=== PATIENT | female | born 1980 | race Caucasian/White ===

== ENCOUNTER 2017-05-16 15:34 | Emergency (ER) | payer MEDICAID, SELFPAY | END 2017-05-16 17:02 | disposition home or self-care (01) | PROVIDERS: Emergency Provider Nurse Practitioner; Family Provider Emergency Medicine; Visit Provider Nurse Practitioner | DX: J06.9 Acute upper respiratory infection, unspecified (principal); F17.210 Nicotine dependence, cigarettes, uncomplicated; I10 Essential (primary) hypertension; Z79.899 Other long term (current) drug therapy; F41.9 Anxiety disorder, unspecified | CPT/HCPCS: 87804; 99201 ==

== ENCOUNTER 2017-05-23 16:24 | Emergency (ER) | payer MEDICAID, SELFPAY ==
[2017-05-23 16:28] VITALS: BP 147/93; PULSE 60; RESP 18; TEMP 36.7; O2SAT 96; BMI 29.9
[2017-05-23 17:00] LABS: Basophils # 0.1 K/mm3 (0-0.2); Basophils % 0.9 % (0.1-2.0); Eosinophils # 0.2 K/mm3 (0.0-0.4); Eosinophils % 2.5 % (0.1-12.0); Hematocrit 38.6 % (37.0-47.0); Hemoglobin 12.6 g/dL (12.2-16.2); Lymphocytes # 1.9 K/mm3 (0.7-4.5); Lymphocytes % 31.2 K/mm3 (10-50); Mean Corpuscular HGB Conc 32.6 g/dL (31.8-35.4); Mean Corpuscular Hemoglobin 32.1 pg (27.0-31.2); Mean Corpuscular Volume 98.4 fl (81-99); Mean Platelet Volume 8.4 fl (7.4-10.4); Monocytes # 0.4 K/mm3 (0.1-1.0); Monocytes % 6.9 % (1.7-9.3); Neutrophils # 3.5 K/mm3 (1.8-7.8); Neutrophils % 58.4 % (37.0-80.0); Platelet Count 276 K/mm3 (142-424); Red Blood Count 3.93 M/mm3 (4.20-5.40); Red Cell Distribution Width 12.8 % (11.5-17.5)
[2017-05-23 17:25] LABS: Alanine Aminotransferase 20 U/L (12-78); Albumin Level 3.8 gm/dL (3.4-5.0); Albumin/Globulin Ratio 1.2 (1.1-1.8); Alkaline Phosphatase 59 U/L (46-116); Anion Gap 9.6 mEq/L (5-15); Aspartate Amino Transferase 14 U/L (15-37); Bilirubin,Total 0.3 mg/dL (0.2-1.0); Blood Urea Nitrogen 11 mg/dL (7-18); CKMB Relative Index 0.8 U/L (0-4.0); Calcium 8.5 mg/dL (8.5-10.1); Carbon Dioxide 27 mmol/L (21.0-32.0); Chloride 107 mmol/L (98-107); Creatine Kinase 61 U/L (26-192); Creatine Kinase MB 0.5 mg/ml (0.0-3.6); Creatinine Clearance Estimated 150 mL/min (0-300); Creatinine,Serum 0.68 mg/dL (0.55-1.02); Estimated Glomerular Filt Rate > 60 ml/min (>60); GFR (African American) > 60 ML/MIN (>60); Globulin 3.2 gm/dl (1.3-3.2); Glucose 84 mg/dL (74-106); Potassium 3.6 mmoL/L (3.5-5.1); Sodium 140 mmol/L (136-145); Thyroid Stimulating Hormone 0.97 uIU/ml (0.358-3.740); Troponin I < 0.02 ng/ml (0.00-0.06)
--- NOTE | 2017-05-23 17:50 | XR_ITS ---
XR chest 2V HISTORY: Chest pain, current smoker ITS.REASON: HEART PALPITATIONS ORDERING PHYSICIAN: Bernadette Young MD PATIENT AGE: 37 years COMPARISON: None available FINDINGS: The cardiomediastinal silhouette and pulmonary vascularity are within normal limits. The lungs are clear without infiltrates, suspicious nodules, or pleural effusions. No acute bony abnormalities. IMPRESSION: Negative chest, no acute finding
--- NOTE | 2017-05-23 20:20 | HMH.EDGENADL ---
ED Disposition Clinical Impression: Palpitations Disposition: Home, Self-Care Condition on Discharge: Good Referrals: José Youngblood MD [Primary Care Provider] - Time of Disposition: 20:30 - Critical Care Critical Care Time: No Attestation: On 05/23/17, the high probability of a clinically significant, sudden or life threatening deterioration of the following system(s) required my full and direct attention, intervention and personal management. The time I documented below is in addition to time spent performing reported procedures but includes the following listed in this critical care notation. Medical Decision Making Vital Signs: 05/23/17 16:28 Temperature 98.0 F Temperature Source Oral Pulse Rate [Right Brachial] 60 Respiratory Rate 18 Blood Pressure [Right Arm] 147/93 Blood Pressure Mean [Right Arm] 111 Blood Pressure Source [Right Arm] Automatic Cuff Blood Pressure Position [Right Arm] Supine 02 Sat by Pulse Oximetry 96 Oxygen Delivery Method Room Air - Lab Data Lab Results 05/23/17 16:50: Sodium 140, Potassium 3.6, Chloride 107, Carbon Dioxide 27, Anion Gap 9.6, BUN 11, Creatinine 0.68, Estimated Creat Clear 150, Estimated GFR > 60, Est GFR ( Amer) > 60, Glucose 84, Calcium 8.5, Total Bilirubin 0.3, AST 14 L, ALT 20, Alkaline Phosphatase 59, Total Creatine Kinase 61, CK-MB (CK-2) 0.5, CK-MB (CK-2) Rel Index 0.8, Troponin I < 0.02, Total Protein 7.0, Albumin 3.8, Globulin 3.2, Albumin/Globulin Ratio 1.2, TSH 0.97 05/23/17 16:50: WBC 6.0, RBC 3.93 L, Hgb 12.6, Hct 38.6, MCV 98.4, MCH 32.1 H, MCHC 32.6, RDW 12.8, Plt Count 276, MPV 8.4, Neut % (Auto) 58.4, Lymph % (Auto) 31.2, [place] % (Auto) 6.9, Eos % (Auto) 2.5, Baso % (Auto) 0.9, Neut # (Auto) 3.5, Lymph # (Auto) 1.9, [place] # (Auto) 0.4, Eos # (Auto) 0.2, Baso # (Auto) 0.1 Result diagrams: 05/23/17 16:50 05/23/17 16:50 Orders (Tests/Meds): ED MEDICATIONS Generic Name Dose Route Start Last Admin Trade Name Fouzia PRN Reason Stop Dose Admin Sodium Chloride 10 ml 05/23/17 16:45 Saline Flush 10ml Syringe IV 06/22/17 16:44 NEEDED PRN Maintain IV Site ORDERS Category Date Time Status Chest XR 2 view (NOT portable) [XR chest 2V] Stat Exams 05/23/17 17:50 Taken - Radiology Data #1 Image(s): Chest Image Reviewed: Yes I reviewed the patient's radiology results Preliminary Findings: Normal/NAD, No Infiltrates Seen, Normal Lung Inflation [place], Normal Heart Size - ECG Data Tracing #1 His bradycardia rate of 58 very nonspecific T-wave flattening QT interval ECG normal with no acute: arrhythmias, ischemia, conduction abnormalities, chamber hypertrophy Ischemic changes: other (somewhat flattened t waves: Normal QT corrected.) - Librado Inquiry Pt receiving controlled substance: No General Adult HPI - General Chief complaint: Arrhythmia/Palpitations Stated complaint: palpitations Mode of Arrival: Ambulatory Limitations: No Limitations Description of Symptoms (Recalled from ER Triage Doc. by RN): PT STATES SHE FELT LIKE SHE WAS HAVING PALPITATIONS EARLIER THIS DATE; SIMILAR TO. HAVING BEFORE - History of Present Illness HPI narrative: Pt reports palpitations at rest, intermittent, lasting briefly, nausea or vomiting, no diaphoresis, no radiation. Caffeine. No syncope. She has had her thyroid checked in the past and denies any skin or weight changes. Is comfortable on initial evaluation. Onset (ago): hour(s) Radiation: proximal Severity: mild Quality: sharp Consistency: intermittent Relieving factors: none Exacerbating factors: none Associated symptoms: denies other symptoms Treatments prior to arrival: none - Related Data Allergies Allergy/AdvReac Type Severity Reaction Status Date / Time Penicillins [PENICILLINS] Allergy Unknown Unverified 05/06/17 14:40 tetracycline [TETRACYCLINE] Allergy Unknown Unverified 05/06/17 14:40 [facility] History I have reviewed the patient's
--- NOTE | 2017-05-23 20:23 | ED_ITS ---
ED Disposition Clinical Impression: Palpitations Disposition: Home, Self-Care Condition on Discharge: Good Referrals: José Youngblood MD [Primary Care Provider] - Time of Disposition: 20:30 - Critical Care Critical Care Time: No Attestation: On 05/23/17, the high probability of a clinically significant, sudden or life threatening deterioration of the following system(s) required my full and direct attention, intervention and personal management. The time I documented below is in addition to time spent performing reported procedures but includes the following listed in this critical care notation. Medical Decision Making Vital Signs: 05/23/17 16:28 Temperature 98.0 F Temperature Source Oral Pulse Rate [Right Brachial] 60 Respiratory Rate 18 Blood Pressure [Right Arm] 147/93 Blood Pressure Mean [Right Arm] 111 Blood Pressure Source [Right Arm] Automatic Cuff Blood Pressure Position [Right Arm] Supine 02 Sat by Pulse Oximetry 96 Oxygen Delivery Method Room Air - Lab Data Lab Results 05/23/17 16:50: Sodium 140, Potassium 3.6, Chloride 107, Carbon Dioxide 27, Anion Gap 9.6, BUN 11, Creatinine 0.68, Estimated Creat Clear 150, Estimated GFR > 60, Est GFR ( Amer) > 60, Glucose 84, Calcium 8.5, Total Bilirubin 0.3, AST 14 L, ALT 20, Alkaline Phosphatase 59, Total Creatine Kinase 61, CK-MB (CK-2) 0.5, CK-MB (CK-2) Rel Index 0.8, Troponin I < 0.02, Total Protein 7.0, Albumin 3.8, Globulin 3.2, Albumin/Globulin Ratio 1.2, TSH 0.97 05/23/17 16:50: WBC 6.0, RBC 3.93 L, Hgb 12.6, Hct 38.6, MCV 98.4, MCH 32.1 H, MCHC 32.6, RDW 12.8, Plt Count 276, MPV 8.4, Neut % (Auto) 58.4, Lymph % (Auto) 31.2, [place] % (Auto) 6.9, Eos % (Auto) 2.5, Baso % (Auto) 0.9, Neut # (Auto) 3.5 , Lymph # (Auto) 1.9, [place] # (Auto) 0.4, Eos # (Auto) 0.2, Baso # (Auto) 0.1 Result diagrams: 05/23/17 16:50 05/23/17 16:50 Orders (Tests/Meds): ED MEDICATIONS Generic Name Dose Route Start Last Admin Trade Name Fouzia PRN Reason Stop Dose Admin Sodium Chloride 10 ml 05/23/17 16:45 Saline Flush 10ml Syringe IV 06/22/17 16:44 NEEDED PRN Maintain IV Site ORDERS Category Date Time Status Chest XR 2 view (NOT portable) [XR chest 2V] Stat Exams 05/23/17 17:50 Taken - Radiology Data #1 Image(s): Chest Image Reviewed: Yes I reviewed the patient's radiology results Preliminary Findings: Normal/NAD, No Infiltrates Seen, Normal Lung Inflation Hilton , Normal Heart Size - ECG Data Tracing #1 His bradycardia rate of 58 very nonspecific T-wave flattening QT interval ECG normal with no acute: arrhythmias, ischemia, conduction abnormalities, chamber hypertrophy Ischemic changes: other (somewhat flattened t waves: Normal QT corrected.) - Librado Inquiry Pt receiving controlled substance: No General Adult HPI - General Chief complaint: Arrhythmia/Palpitations Stated complaint: palpitations Mode of Arrival: Ambulatory Limitations: No Limitations Description of Symptoms (Recalled from ER Triage Doc. by RN): PT STATES SHE FELT LIKE SHE WAS HAVING PALPITATIONS EARLIER THIS DATE; SIMILAR TO. HAVING BEFORE - History of Present Illness HPI narrative: Pt reports palpitations at rest, intermittent, lasting briefly, nausea or vomiting, no diaphoresis, no radiation. Caffeine. No syncope. She has had her thyroid checked i
[2017-05-23 21:37] VITALS: BP 147/91; PULSE 56; RESP 18; TEMP 37; O2SAT 98
== END 2017-05-23 21:43 | disposition home or self-care (01) ==
PROVIDERS: Emergency Provider Emergency Medicine; Family Provider Emergency Medicine; PCP Emergency Medicine
DX: R00.2 Palpitations (principal); F17.210 Nicotine dependence, cigarettes, uncomplicated
CPT/HCPCS: 71046; 80053; 82550; 82553; 84443; 84484; 85025; 93005; 99284

== ENCOUNTER 2017-07-04 12:19 | Emergency (ER) | payer MEDICAID, SELFPAY ==
[2017-07-04 13:40] VITALS: BP 145/92; PULSE 66; RESP 20; TEMP 36.4; O2SAT 98; BMI 66.0
[2017-07-04 14:08] LABS: Basophils # 0.1 K/mm3 (0-0.2); Basophils % 0.9 % (0.1-2.0); Eosinophils # 0.2 K/mm3 (0.0-0.4); Eosinophils % 2.9 % (0.1-12.0); Hematocrit 41.2 % (37.0-47.0); Hemoglobin 13.7 g/dL (12.2-16.2); Lymphocytes # 2.5 K/mm3 (0.7-4.5); Lymphocytes % 33.7 K/mm3 (10-50); Mean Corpuscular HGB Conc 33.3 g/dL (31.8-35.4); Mean Corpuscular Hemoglobin 32.7 pg (27.0-31.2); Mean Corpuscular Volume 98.2 fl (81-99); Mean Platelet Volume 8.3 fl (7.4-10.4); Monocytes # 0.5 K/mm3 (0.1-1.0); Monocytes % 6.3 % (1.7-9.3); Neutrophils # 4.1 K/mm3 (1.8-7.8); Neutrophils % 56.2 % (37.0-80.0); Platelet Count 226 K/mm3 (142-424); Red Cell Distribution Width 12.5 % (11.5-17.5); White Blood Count 7.3 K/mm3 (4.8-10.8)
[2017-07-04 14:24] LABS: Alanine Aminotransferase 20 U/L (12-78); Albumin Level 3.8 gm/dL (3.4-5.0); Albumin/Globulin Ratio 1.1 (1.1-1.8); Alkaline Phosphatase 62 U/L (46-116); Amylase 30 U/L (25-125); Aspartate Amino Transferase 10 U/L (15-37); Bilirubin,Total 0.2 mg/dL (0.2-1.0); Blood Urea Nitrogen 8 mg/dL (7-18); Calcium 8.7 mg/dL (8.5-10.1); Carbon Dioxide 29 mmol/L (21.0-32.0); Chloride 106 mmol/L (98-107); Creatinine Clearance Estimated 112 mL/min (0-300); Creatinine,Serum 0.63 mg/dL (0.55-1.02); Estimated Glomerular Filt Rate 108 ml/min (>60); GFR (African American) 130 ML/MIN (>60); Globulin 3.6 gm/dl (1.3-3.2); Glucose 89 mg/dL (74-106); Sodium 141 mmol/L (136-145); Total Protein,Serum 7.4 gm/dL (6.4-8.2)
[2017-07-04 14:26] LABS: Lipase 192 u/L (73-393)
--- NOTE | 2017-07-04 17:30 | HMH.EDABDPAI ---
ED Disposition Clinical Impression: Crohns disease Qualifiers: Gastrointestinal tract location: small intestine Digestive disease complication type: unspecified complication Qualified Code(s): K50.019 - Crohn's disease of small intestine with unspecified complications Disposition: Home, Self-Care Condition on Discharge: Fair Instructions: Acute Abdominal Pain Prescriptions: Hydrocodone/Acetaminophen [Hydrocodone-Acetamin 5-325 mg] 1 each PO Q6H 3 Days #15 tab Ondansetron HCl [Zofran 4mg Tab] 4 mg PO Q6H 10 Days #40 tab Referrals: José Youngblood MD [Primary Care Provider] - Time of Disposition: 17:35 - Critical Care Critical Care Time: No Attestation: On 07/04/17, the high probability of a clinically significant, sudden or life threatening deterioration of the following system(s) required my full and direct attention, intervention and personal management. The time I documented below is in addition to time spent performing reported procedures but includes the following listed in this critical care notation. Medical Decision Making - Medical Records Medical records reviewed: Yes: I reviewed the patient's medical records. Vital Signs: 07/04/17 13:40 Temperature 97.6 F Temperature Source Tympanic Pulse Rate [Right Radial] 66 Respiratory Rate 20 Blood Pressure [Right Arm] 145/92 Blood Pressure Mean [Right Arm] 109 Blood Pressure Position [Right Arm] Sitting 02 Sat by Pulse Oximetry 98 Oxygen Delivery Method Room Air - Lab Data Lab results reviewed: Yes: I reviewed the patient's lab results. Lab Results 07/04/17 13:50: WBC 7.3, RBC 4.20, Hgb 13.7, Hct 41.2, MCV 98.2, MCH 32.7 H, MCHC 33.3, RDW 12.5, Plt Count 226, MPV 8.3, Neut % (Auto) 56.2, Lymph % (Auto) 33.7, [place] % (Auto) 6.3, Eos % (Auto) 2.9, Baso % (Auto) 0.9, Neut # (Auto) 4.1, Lymph # (Auto) 2.5, [place] # (Auto) 0.5, Eos # (Auto) 0.2, Baso # (Auto) 0.1 07/04/17 13:50: Sodium 141, Potassium 4.0, Chloride 106, Carbon Dioxide 29, Anion Gap 10.0, BUN 8, Creatinine 0.63, Estimated Creat Clear 112, Estimated GFR 108, Est GFR ( Amer) 130, Glucose 89, Calcium 8.7, Total Bilirubin 0.2, AST 10 L, ALT 20, Alkaline Phosphatase 62, Total Protein 7.4, Albumin 3.8, Globulin 3.6 H, Albumin/Globulin Ratio 1.1, Amylase 30 07/04/17 13:50: Lipase 192 Result diagrams: 07/04/17 13:50 07/04/17 13:50 Orders (Tests/Meds): ORDERS Category Date Time Status Urinalysis and Microscopic Stat Lab 07/04/17 13:48 Ordered - Librado Inquiry Pt receiving controlled substance: Yes Librado was queried for this patient: Yes Reference #:: [id number] Risks and benefits of using a controlled substance: were discussed with pt by me Abdominal Pain HPI - General Chief Complaint: Abdominal Pain Stated Complaint: abdominal pain Time Seen by Provider: 07/04/17 17:16 Mode of Arrival: Ambulatory Limitations: No Limitations Description of Symptoms (Recalled from ER Triage Doc. by RN): ABD PAIN, NAUSEA/DIARRHEA - History of Present Illness HPI narrative: History of Crohn's Disease and out of Humira for about a month. Now with a pain in right side with vomiting and diarrhea butno fever and feels this is a Flare of her Crohn's and she has been taking Cipro and Flagyl with no relief. I have told her I can not rule out appendicitis wihtout a CT scan but she has had many and does not want another at this time MD complaint: abdominal pain Onset (ago): day(s) Consistency: intermittent Severity: moderate Severity scale (1-10): 5 - Related Data Previous Rx's Medication Instructions Recorded Hydrocodone/Acetaminophen 1 each PO Q6H 3 Days #15 tab 07/04/17 [Hydrocodone-Acetamin 5-325 mg] Ondansetron HCl [Zofran 4mg Tab] 4 mg PO Q6H 10 Days #40 tab 07/04/17 Allergies Allergy/AdvReac Type Severity Reaction Status Date / Time Penicillins [PENICILLINS] Allergy Unknown Verified 07/04/17 13:46 tetracycline [TETRACYCLINE] Allergy Unknown Verified 07/04/17 13:4
--- NOTE | 2017-07-04 17:33 | ED_ITS ---
ED Disposition Clinical Impression: Crohns disease Qualifiers: Gastrointestinal tract location: small intestine Digestive disease complication type: unspecified complication Qualified Code(s): K50.019 - Crohn' s disease of small intestine with unspecified complications Disposition: Home, Self-Care Condition on Discharge: Fair Instructions: Acute Abdominal Pain Prescriptions: Hydrocodone/Acetaminophen [Hydrocodone-Acetamin 5-325 mg] 1 each PO Q6H 3 Days # 15 tab Ondansetron HCl [Zofran 4mg Tab] 4 mg PO Q6H 10 Days #40 tab Referrals: José Youngblood MD [Primary Care Provider] - Time of Disposition: 17:35 - Critical Care Critical Care Time: No Attestation: On 07/04/17, the high probability of a clinically significant, sudden or life threatening deterioration of the following system(s) required my full and direct attention, intervention and personal management. The time I documented below is in addition to time spent performing reported procedures but includes the following listed in this critical care notation. Medical Decision Making - Medical Records Medical records reviewed: Yes: I reviewed the patient's medical records. Vital Signs: 07/04/17 13:40 Temperature 97.6 F Temperature Source Tympanic Pulse Rate [Right Radial] 66 Respiratory Rate 20 Blood Pressure [Right Arm] 145/92 Blood Pressure Mean [Right Arm] 109 Blood Pressure Position [Right Arm] Sitting 02 Sat by Pulse Oximetry 98 Oxygen Delivery Method Room Air - Lab Data Lab results reviewed: Yes: I reviewed the patient's lab results. Lab Results 07/04/17 13:50: WBC 7.3, RBC 4.20, Hgb 13.7, Hct 41.2, MCV 98.2, MCH 32.7 H, MCHC 33.3, RDW 12.5, Plt Count 226, MPV 8.3, Neut % (Auto) 56.2, Lymph % (Auto) 33.7, [place] % (Auto) 6.3, Eos % (Auto) 2.9, Baso % (Auto) 0.9, Neut # (Auto) 4.1 , Lymph # (Auto) 2.5, [place] # (Auto) 0.5, Eos # (Auto) 0.2, Baso # (Auto) 0.1 07/04/17 13:50: Sodium 141, Potassium 4.0, Chloride 106, Carbon Dioxide 29, Anion Gap 10.0, BUN 8, Creatinine 0.63, Estimated Creat Clear 112, Estimated GFR 108, Est GFR ( Amer) 130, Glucose 89, Calcium 8.7, Total Bilirubin 0.2, AST 10 L, ALT 20, Alkaline Phosphatase 62, Total Protein 7.4, Albumin 3.8, Globulin 3.6 H, Albumin/Globulin Ratio 1.1, Amylase 30 07/04/17 13:50: Lipase 192 Result diagrams: 07/04/17 13:50 07/04/17 13:50 Orders (Tests/Meds): ORDERS Category Date Time Status Urinalysis and Microscopic Stat Lab 07/04/17 13:48 Ordered - Librado Inquiry Pt receiving controlled substance: Yes Librado was queried for this patient: Yes Reference #:: [id number] Risks and benefits of using a controlled substance: were discussed with pt by me Abdominal Pain HPI - General Chief Complaint: Abdominal Pain Stated Complaint: abdominal pain Time Seen by Provider: 07/04/17 17:16 Mode of Arrival: Ambulatory Limitations: No Limitations Description of Symptoms (Recalled from ER Triage Doc. by RN): ABD PAIN, NAUSEA/ DIARRHEA - History of Present Illness HPI narrative: History of Crohn's Disease and out of Humira for about a month. Now with a pain in right side with vomiting and diarrhea butno fever and feels this is a Flare of her Crohn's and she has been taking Cipro and Flagyl with no relief. I have told her I can not rule out appendicitis wihtout a CT scan but she has had many and does not want another at this time MD complaint: abdominal pain Onset (a
[2017-07-04 17:55] VITALS: BP 134/70; PULSE 78; RESP 20; TEMP 36.6; O2SAT 100
== END 2017-07-04 17:57 | disposition home or self-care (01) ==
PROVIDERS: Emergency Provider General Practice; Family Provider Emergency Medicine; PCP Emergency Medicine
DX: K50.019 Crohn's disease of small intestine with unspecified complications (principal)
CPT/HCPCS: 80053; 82150; 83690; 85025; 96374; 96375; 99282; J2405

== ENCOUNTER → 2017-08-12 10:42 | Outpatient (CLI) | payer MEDICAID, SELFPAY ==
[2017-08-12 11:55] LABS: Anion Gap 13.7 mEq/L (5-15); Blood Urea Nitrogen 8 mg/dL (7-18); Carbon Dioxide 25 mmol/L (21.0-32.0); Chloride 104 mmol/L (98-107); Creatinine,Serum 0.67 mg/dL (0.55-1.02); Estimated Glomerular Filt Rate 100 ml/min (>60); GFR (African American) 121 ML/MIN (>60); Glucose 99 mg/dL (74-106); Potassium 3.7 mmoL/L (3.5-5.1); Sodium 139 mmol/L (136-145)
== END ==
PROVIDERS: Visit Provider Dermatology
DX: L70.8 Other acne (principal)
CPT/HCPCS: 36415; 80048

== ENCOUNTER 2017-08-12 11:25 | Emergency (ER) | payer MEDICAID, SELFPAY ==
[2017-08-12 11:35] VITALS: BP 141/90; PULSE 64; RESP 16; TEMP 36.8; O2SAT 95; BMI 29.6
--- NOTE | 2017-08-12 12:06 | HMH.EDUTC ---
[facility] [place] Disposition Clinical Impression: UTI (urinary tract infection) Qualifiers: Urinary tract infection type: site unspecified Hematuria presence: with hematuria Qualified Code(s): N39.0 - Urinary tract infection, site not specified Disposition: Home, Self-Care Condition on Discharge: Good Instructions: DI for Urinary Tract Infection (UTI), DI for Hematuria Additional Instructions: * increase fluids, Water and NOT soda or tea * Start antibiotic immediately and be sure to take as ordered for the FULL length of time although you should start to see improvement over the next 48 hours. * Be SURE to follow up anytime for new or worsening symptoms, AND in 48 hours for urine culture results AND in 10-14 days to repeat UA and ensure infection resolved and blood no longer present. * Be sure to let your PCP (or whoever you follow up with) know we sent urine culture so they can request records and ensure you are on the appropriate antibiotic if you are not getting better or getting worse!!! Prescriptions: Sulfamethoxazole/Trimethoprim [Bactrim DS tablet] 1 each PO BID #20 tab Referrals: Owen Mars MD [Staff Physician] - (Be SURE to follow up anytime for new or worsening symptoms, AND in 48 hours for urine culture results AND in 10-14 days to repeat UA and ensure infection resolved and blood no longer present) Time of Disposition: 13:06 Medical Decision Making - Librado Inquiry Pt receiving controlled substance: No Vital Signs: 08/12/17 11:35 Temperature 98.3 F Temperature Source Oral Pulse Rate [Left Radial] 64 Respiratory Rate 16 Blood Pressure [Right Arm] 141/90 Blood Pressure Mean [Right Arm] 107 Blood Pressure Source [Right Arm] Automatic Cuff Blood Pressure Position [Right Arm] Sitting 02 Sat by Pulse Oximetry 95 Oxygen Delivery Method Room Air - Lab Data Lab results reviewed: Yes: I reviewed the patient's lab results. Lab Results 08/12/17 11:47: Influenza Type A Ag Negative, Influenza Type B Ag Negative, Strep Scn Rapid Clinic Negative 08/12/17 12:12: Urine Color Yellow, Urine Appearance Clear, Urine pH 5.5, Ur Specific [place] >= 1.030, Urine Protein 1+, Urine Glucose (UA) Negative, Urine Ketones Trace, Urine Blood 1+, Urine Nitrate Negative, Urine Bilirubin 1+ A, Urine Urobilinogen 1, Ur Leukocyte Esterase 3+ A Orders (Tests/Meds): ORDERS Category Date Time Status Strep Screen Confirmation Stat Micro 08/12/17 11:47 Received Urine Culture Stat Micro 08/12/17 13:00 Received - Reevaluation(s) Time: 12:40 Reevaluation #1: Discussed U/A. Not enough urine for culture. Rvwd POC. pt currently drinking water so that urine culture can be obtained prior to discharge. [facility] [place] HPI - General Stated complaint: flu like symptoms Time Seen by Provider: 08/12/17 11:45 Mode of Arrival: Ambulatory Source of Information: Patient Limitations: No Limitations Description of Symptoms (Recalled from Triage Doc. by RN): FEVER, VOMITING, ACHY, AND HEADACHE SINCE FRIDAY. HEENT Symptoms (Recalled from RN notes): No Resp Symptoms (Recalled from RN notes): No Skin Symptoms (Recalled from RN notes): No MS Symptoms (Recalled from RN notes): Yes (BODY ACHES) Functional Status (Recalled from RN notes): NA - History of Present Illness Provider Complaint: c/o I think I have the flu . Started Friday. N/V, aches, chills. No diarrhea. Hx of Crohn's but this isn't my typical flare symptoms . Treated w/ Humira. No known sick contacts. Feeling feverish at times. Urinating less often, darker. Vomiting has slowed. Has zofran at home but hasn't taken anything today. No appetite - Related Data Home Medications Medication Instructions Recorded Confirmed Adalimumab [Humira] 40 mg SQ WEEKLY 08/12/17 08/12/17 Atenolol [Atenolol 25mg Tab] 25 mg PO BID 08/12/17 08/12/17 Balsalazide Disodium [Colazal] 750 mg PO TID 08/12/17 08/12/17 Folic Acid 20 mg PO DAILY 08/12/17 08/12/17 Previous Rx's Medication Instructions Recorded
[2017-08-12 12:52] LABS: UTC Influenza A Antigen Negative (Negative); UTC Influenza B Antigen Negative (Negative); UTC Strep Screen (Rapid) Negative (Negative)
[2017-08-12 12:52] LABS: Apearance,Urine Clear (Clear); Color,Urine Yellow (Yellow); PH,Urine 5.5 (5.0-8.5)
[2017-08-12 12:53] LABS: Blood, Urine 1+ (Negative); Glucose,Urine (UA) Negative (Negative); Ketones,Urine TRACE (Negative); Protein,Urine 1+ (Negative); Specific Gravity, Urine >= 1.030 (1.005-1.030)
[2017-08-12 12:54] LABS: Bilirubin,Urine 1+ (Negative); Urobilinogen,Urine 1 EU/dl (0.2)
[2017-08-12 12:55] LABS: UTC Leukocyte Esterase,Urine 3+ (Negative); UTC Nitrate,Urine Negative (Negative)
[2017-08-12 13:09] VITALS: BP 141/90; PULSE 64; RESP 16; TEMP 36.8; O2SAT 95
== END 2017-08-12 13:10 | disposition home or self-care (01) ==
PROVIDERS: Emergency Provider Nurse Practitioner Family; Family Provider Emergency Medicine; PCP Emergency Medicine
DX: N39.0 Urinary tract infection, site not specified (principal); F17.210 Nicotine dependence, cigarettes, uncomplicated; Z88.0 Allergy status to penicillin
CPT/HCPCS: 81003; 87086; 87804; 87880; 99202

== ENCOUNTER → 2018-01-01 11:12 | Outpatient (CLI) | payer MEDICAID, SELFPAY ==
[2018-01-01 12:22] LABS: Anion Gap 10.6 mEq/L (5-15); Blood Urea Nitrogen 8 mg/dL (7-18); Calcium 8.9 mg/dL (8.5-10.1); Carbon Dioxide 31 mmol/L (21.0-32.0); Chloride 105 mmol/L (98-107); Estimated Glomerular Filt Rate 95 ml/min (>60); GFR (African American) 115 ML/MIN (>60); Glucose 106 mg/dL (74-106); Potassium 3.6 mmoL/L (3.5-5.1); Sodium 143 mmol/L (136-145)
== END ==
PROVIDERS: Visit Provider Dermatology
DX: L70.8 Other acne (principal); L73.2 Hidradenitis suppurativa
CPT/HCPCS: 36415; 80048

== ENCOUNTER → 2018-01-23 12:36 | Outpatient (CLI) | payer MEDICAID, SELFPAY ==
[2018-01-23 13:15] LABS: Basophils % 0.6 % (0.1-2.0); Eosinophils # 0.2 K/mm3 (0.0-0.4); Eosinophils % 3.3 % (0.1-12.0); Hematocrit 40.3 % (37.0-47.0); Hemoglobin 13.1 g/dL (12.2-16.2); Lymphocytes # 2.2 K/mm3 (0.7-4.5); Lymphocytes % 30.5 K/mm3 (10-50); Mean Corpuscular HGB Conc 32.4 g/dL (31.8-35.4); Mean Corpuscular Hemoglobin 31.9 pg (27.0-31.2); Mean Corpuscular Volume 98.4 fl (81-99); Mean Platelet Volume 7.8 fl (7.4-10.4); Monocytes # 0.4 K/mm3 (0.1-1.0); Monocytes % 5.5 % (1.7-9.3); Neutrophils # 4.3 K/mm3 (1.8-7.8); Neutrophils % 60.1 % (37.0-80.0); Platelet Count 284 K/mm3 (142-424); Red Cell Distribution Width 12.4 % (11.5-17.5); White Blood Count 7.1 K/mm3 (4.8-10.8)
[2018-01-23 19:06] LABS: Alanine Aminotransferase 15 U/L (12-78); Albumin Level 3.7 gm/dL (3.4-5.0); Albumin/Globulin Ratio 1.1 (1.1-1.8); Alkaline Phosphatase 65 U/L (46-116); Anion Gap 8.4 mEq/L (5-15); Aspartate Amino Transferase 12 U/L (15-37); Bilirubin,Total 0.2 mg/dL (0.2-1.0); Blood Urea Nitrogen 8 mg/dL (7-18); Calcium 8.7 mg/dL (8.5-10.1); Carbon Dioxide 29 mmol/L (21.0-32.0); Chloride 107 mmol/L (98-107); Creatinine,Serum 0.67 mg/dL (0.55-1.02); Estimated Glomerular Filt Rate 100 ml/min (>60); GFR (African American) 121 ML/MIN (>60); Globulin 3.4 gm/dl (1.3-3.2); Glucose 87 mg/dL (74-106); Potassium 4.4 mmoL/L (3.5-5.1); Sodium 140 mmol/L (136-145); Total Protein,Serum 7.1 gm/dL (6.4-8.2)
== END ==
PROVIDERS: PCP Internal Medicine Adolescent Medicine; Visit Provider Nurse Practitioner
DX: K50.90 Crohn's disease, unspecified, without complications (principal)
CPT/HCPCS: 36415; 80053; 85025

== ENCOUNTER → 2018-01-28 09:56 | Outpatient (CLI) | payer MEDICAID, SELFPAY | PROVIDERS: PCP Internal Medicine Adolescent Medicine; Visit Provider Nurse Practitioner | DX: K50.90 Crohn's disease, unspecified, without complications (principal) | CPT/HCPCS: 36415; 86480 ==

== ENCOUNTER → 2018-11-23 13:26 | Outpatient (CLI) | payer MEDICAID, SELFPAY | PROVIDERS: PCP Internal Medicine Adolescent Medicine; Visit Provider Nurse Practitioner Family | DX: R00.2 Palpitations (principal) | CPT/HCPCS: 93225; 93226 ==

== ENCOUNTER → 2018-11-25 13:32 | Outpatient (CLI) | payer MEDICAID, SELFPAY ==
--- NOTE | 2018-11-25 13:38 | CA_ITS ---
PROCEDURE: 2-D M-mode and color Doppler study INDICATIONS FOR THE TEST: Chest pain COPD Heart Murmur Tobacco Smoking+ Palpitations Fatigue Syncope Edema Hypertension+Diabetes Mellitus Rheumatic Fever SOB RUTH Obesity Hyperlipidemia Family History HD Additional History CROHNS DISEASE, ASTHMA PATIENT INFORMATION HEIGHT: 67 WEIGHT:170 GENDER: Female B/P:121/77 2-D/M-MODE INTERPRETATION: 2-D MEASUREMENTS OBSERVED VALUES IN CMS Right Ventricular Dimension (RVDd) 2.1 Interventricular Septum (Thickness)(IVsd) 1.0 Left Ventricular Internal Dimensions(LVIDd) 4.5 Left Ventricular Posterior Wall (Thickness)(LVPWd) 0.6 Aortic Root 2.8 Aortic Cusp Separation 2.1 Left Atrial Dimensions (LAD) 3.4 2D 1. Left atrium is normal size, left ventricle is normal size, there is no concentric left ventricular hypertrophy, visually estimated ejection fraction 55% with no regional wall motion abnormality. 2. The right atrium and right ventricle are normal size and contractility. 3. The aortic valve is minimally thickened and fibrosed. 4. The mitral and tricuspid valvular grossly normal. 5. The pulmonic valve is poorly visualized. 6. No significant pericardial effusion noted. DOPPLER INTERROGATION: Doppler interrogation of the aortic, mitral and tricuspid valve reveals presence of mild mitral and tricuspid regurgitation, tricuspid regurgitation jet velocity is inadequate for calculation of the right ventricular systolic pressure, diastolic parameters are within normal range. CONCLUSION: 1. Normal left ventricular size, preserved left ventricular systolic function, visually estimated ejection fraction 55% with no regional wall motion abnormality, diastolic parameters are within normal range. 2. Mild mitral and tricuspid regurgitation 3. No significant pericardial effusion noted.
== END ==
PROVIDERS: PCP Internal Medicine Adolescent Medicine; Referring Provider Nurse Practitioner Family; Visit Provider Nurse Practitioner Family
DX: R06.00 Dyspnea, unspecified (principal); R00.2 Palpitations
CPT/HCPCS: 93306

== ENCOUNTER → 2019-07-07 14:34 | Outpatient (CLI) | payer OTHER, SELFPAY ==
--- NOTE | 2019-07-07 14:37 | US_ITS ---
PROCEDURE: US BREAST LT COMPLETE CLINICAL INDICATION: MASTALGIA COMPARISON: No exams were available for comparison FINDINGS: A cystic lesion 2.7 by 5.0 x 2.5 millimeter is noted at 7 o'clock. At 9 o'clock near the nipple a 3.6 by 3.7 x 1.4 millimeter cystic lesion is noted. Both have some internal echoes which could be related to technical factors due to their small size or this could represent complication by hemorrhage or infection. There are at least 2 fat containing axillary lymph nodes largest measuring up to 1.9 centimeter. IMPRESSION: BI-RADS category 3 probably benign finding six-month follow-up is recommended. Dictated by: Carlos Castro 07/07/2019 18:49 Electronically signed by Carlos Castro in [place] 07/07/2019 18:49
--- NOTE | 2019-07-07 14:37 | MM_ITS ---
PROCEDURE: MM DIG MAMM DX UNILAT LT CAD CLINICAL INDICATION: MASTALGIA COMPARISON: No exams were available for comparison TECHNIQUE: Standard CC and MLO images and 3D Tomosynthesis was obtained. Additional cone compression views were performed in the CC and MLO projections. FINDINGS: The breasts are of average density. There are multiple scattered calcifications many with lucent centers likely representing skin calcifications. A cluster of 4 probably benign microcalcifications is seen in the superior breast at 12 o'clock and another cluster of 4 probably benign microcalcifications is seen in the medial breast. A 3.6 millimeter circumscribed nodule is seen at the level of the nipple line and medially and another one 3.7 millimeter in the inferior medial aspect of the left breast is also noted. Sonography performed 07/07/2019 demonstrates at the 7 o'clock and 9 o'clock positions 2 separate complicated cystic lesions felt to be probably benign. There is no spiculated mass or suspicious clustered IMPRESSION: Microcalcifications to suggest malignancy. BI-RAD Category: 3 probably benign FOLLOW-UP: Six-month follow-up bilaterally recommended. (A letter has been sent to the patient regarding results of the study.) Dictated by: Carlos Castro 07/07/2019 18:49 Electronically signed by Carlos Castro in [facility] 07/07/2019 18:49
== END ==
PROVIDERS: PCP Internal Medicine Adolescent Medicine; Visit Provider Nurse Practitioner Family
DX: N64.4 Mastodynia (principal)
CPT/HCPCS: 76641; 77061; 77065; G0279

== ENCOUNTER 2020-01-06 10:53 | Emergency (ER) | payer OTHER, SELFPAY ==
[2020-01-06] VITALS (7 sets, daily range): BP systolic 128–153; BP diastolic 75–98; PULSE 54–77; RESP 15–18; TEMP 36.6–36.8; O2SAT 95–98; BMI 31.4
--- NOTE | 2020-01-06 11:05 | XR_ITS ---
PROCEDURE: XR CHEST 2V CLINICAL HISTORY: weakness Current smoker COMPARISON: CR CXR CHEST(2 VIEWS-NOT PORTABLE) from 07/30/2015 CR CXR CHEST(2 VIEWS-NOT PORTABLE) from 04/15/2017 CR CXR2V XR chest 2V from 05/23/2017 FINDINGS: The cardiomediastinal silhouette and pulmonary vascularity are within normal limits. The lungs are clear without infiltrates, suspicious nodules, or pleural effusions. Mild thoracic curvature convex right with straightening of the thoracic kyphosis. IMPRESSION: No acute findings. Dictated by: Casey Martin MD 01/07/2020 07:19 Casey Martin MD in [facility] 01/07/2020 07:19
--- NOTE | 2020-01-06 11:07 | ECG_ITS ---
APPROVED REPORT Exam: Resting ECG HR:63 bpm ECG Measurements Heart Rate 63 AXES [place] 168 P 43 QRSd 74 QRS 32 QT 438 T 38 QTc 448 <Conclusion> Normal sinus rhythm Normal ECG Electronically signed by : Owen Mars, 01/07/2020 07:12:33
[2020-01-06 11:13] LABS: Microscopic, Urine URINE MICROSCOPIC (MICROSCOPIC)
[2020-01-06 11:16] LABS: Appearance,Urine CLEAR (Clear); Bilirubin,Urine Negative (Negative); Blood, Urine 2+ (Negative); Color,Urine YELLOW (Yellow); Glucose,Urine (UA) Negative (Negative); Ketones,Urine Negative (Negative); Leukocyte Esterase,Urine 1+ (Negative); Nitrate,Urine Negative (Negative); PH,Urine 6.5 (5.0-8.5); Protein,Urine Negative (Negative); Urobilinogen,Urine 0.2 EU/dl (0.2)
[2020-01-06 11:17] LABS: Basophils # 0.1 K/mm3 (0-0.2); Eosinophils # 0.2 K/mm3 (0.0-0.4); Eosinophils % 2.6 % (0.1-12.0); Hematocrit 39.9 % (37.0-47.0); Hemoglobin 13.4 g/dL (12.2-16.2); Lymphocytes # 2.5 K/mm3 (0.7-4.5); Lymphocytes % 33.9 % (10-50); Mean Corpuscular HGB Conc 33.6 g/dL (31.8-35.4); Mean Corpuscular Hemoglobin 33.6 pg (27.0-31.2); Mean Corpuscular Volume 99.9 fl (81-99); Mean Platelet Volume 7.9 fl (7.4-10.4); Monocytes # 0.4 K/mm3 (0.1-1.0); Monocytes % 5.1 % (1.7-9.3); Neutrophils # 4.2 K/mm3 (1.8-7.8); Neutrophils % 57.5 % (37.0-80.0); Platelet Count 308 K/mm3 (142-424); Red Blood Count 3.99 M/mm3 (4.20-5.40); White Blood Count 7.3 K/mm3 (4.8-10.8)
[2020-01-06 11:20] LABS: Urine Pregnancy, HCG Qual. Negative (Negative)
[2020-01-06 11:21] LABS: Chloride 109 mmol/L (98-107); Potassium 3.8 mmoL/L (3.5-5.1); Sodium 141 mmol/L (136-145)
[2020-01-06 11:24] LABS: Alanine Aminotransferase 24 U/L (12-78); Albumin Level 3.8 g/dl (3.5-5.0); Albumin/Globulin Ratio 1.2 (1.1-1.8); Alkaline Phosphatase 56 U/L (38-126); Anion Gap 9.8 mEq/L (5-15); Aspartate Amino Transferase 27 U/L (14-36); Bilirubin,Total 0.3 mg/dl (0.2-1.3); Blood Urea Nitrogen 10 mg/dl (7-17); Carbon Dioxide 26 mmol/L (22.0-30.0); Creatinine Clearance Estimated 174 mL/min (50-200); Estimated Glomerular Filt Rate 112 ml/min (>60); GFR (African American) 136 ML/MIN (>60); Globulin 3.2 g/dL (1.3-3.2)
[2020-01-06 11:25] LABS: Bacteria,Urine 1+ /lpf
[2020-01-06 11:25] LABS: Calcium 8.9 mg/dl (8.4-10.2); Glucose 108 mg/dl (74-100)
[2020-01-06 11:36] LABS: Troponin I < 0.01 ng/ml (0.00-0.034)
--- NOTE | 2020-01-06 11:40 | HMH.EDSYNC ---
ED Disposition Clinical Impression: Near syncope, Dizziness Disposition: Home, Self-Care Condition on Discharge: Fair Instructions: Dizziness, Nonvertigo Referrals: Owen Mars MD [Primary Care Provider] - - Critical Care Critical Care Time: No Attestation: On 01/06/20, the high probability of a clinically significant, sudden or life threatening deterioration of the following system(s) required my full and direct attention, intervention and personal management. The time I documented below is in addition to time spent performing reported procedures but includes the following listed in this critical care notation. Medical Decision Making - Medical Records Medical records reviewed: Yes: I reviewed the patient's medical records. - [place]ibr[place] Inquiry Pt receiving controlled substance: No Vital Signs: 01/06/20 10:54 01/06/20 11:02 01/06/20 11:05 Temperature 98.3 F Temperature Source Oral Pulse Rate [Orthostatic Lying] 58 L Pulse Rate [Orthostatic Sitting Left] 67 Pulse Rate [Orthostatic Standing] 77 Pulse Rate [Right Radial] 68 64 Respiratory Rate 18 15 Blood Pressure [Orthostatic Lying Left Arm] 128/75 Blood Pressure [Orthostatic Sitting] 134/89 Blood Pressure [Orthostatic Standing] 133/88 Blood Pressure [Right Arm] 144/93 H 144/93 H Blood Pressure Mean [Right Arm] 110 110 Blood Pressure Source [Right Arm] Blood Pressure Position [Right Arm] Sitting 02 Sat by Pulse Oximetry 97 97 Oxygen Delivery Method Room Air Room Air 01/06/20 11:24 01/06/20 11:30 Temperature Temperature Source Pulse Rate [Orthostatic Lying] Pulse Rate [Orthostatic Sitting Left] Pulse Rate [Orthostatic Standing] Pulse Rate [Right Radial] 77 59 L Respiratory Rate 16 18 Blood Pressure [Orthostatic Lying Left Arm] Blood Pressure [Orthostatic Sitting] Blood Pressure [Orthostatic Standing] Blood Pressure [Right Arm] 133/88 142/86 H Blood Pressure Mean [Right Arm] 103 104 Blood Pressure Source [Right Arm] Automatic Cuff Blood Pressure Position [Right Arm] Supine Supine 02 Sat by Pulse Oximetry 95 96 Oxygen Delivery Method Room Air Room Air - Lab Data Lab Results 01/06/20 11:00: Urine Color Yellow, Urine Appearance Clear, Urine pH 6.5, Ur Specific [place] 1.020, Urine Protein Negative, Urine Glucose (UA) Negative, Urine Ketones Negative, Urine Blood 2+, Urine Nitrate Negative, Urine Bilirubin Negative, Urine Urobilinogen 0.2, Ur Leukocyte Esterase 1+ A, Urine RBC 3-5, Urine WBC 10-20, Ur Squamous Epith Cells 3-5, Urine Bacteria 1+ 01/06/20 11:00: Urine HCG, Qual Negative 01/06/20 11:14: WBC 7.3, RBC 3.99 L, Hgb 13.4, Hct 39.9, MCV 99.9 H, MCH 33.6 H, MCHC 33.6, RDW 13.0, Plt Count 308, MPV 7.9, Neut % (Auto) 57.5, Lymph % (Auto) 33.9, [place] % (Auto) 5.1, Eos % (Auto) 2.6, Baso % (Auto) 1.0, Neut # (Auto) 4.2, Lymph # (Auto) 2.5, [place] # (Auto) 0.4, Eos # (Auto) 0.2, Baso # (Auto) 0.1 01/06/20 11:14: Sodium 141, Potassium 3.8, Chloride 109 H, Carbon Dioxide 26, Anion Gap 9.8, BUN 10, Creatinine 0.60, Estimated Creat Clear 174, Estimated GFR 112, Est GFR ( Amer) 136, Glucose 108 H, Calcium 8.9, Total Bilirubin 0.3, AST 27, ALT 24, Alkaline Phosphatase 56, Troponin I < 0.01, Total Protein 7.0, Albumin 3.8, Globulin 3.2, Albumin/Globulin Ratio 1.2 Result diagrams: 01/06/20 11:14 01/06/20 11:14 Orders (Tests/Meds): ED MEDICATIONS Generic Name Dose Route Start Last Admin Trade Name Freq PRN Reason Stop Dose Admin Sodium Chloride 1,000 mls @ 999 mls/hr 01/06/20 11:15 01/06/20 11:07 Sod Chlor 0.9% 1000ml Bag IV 01/06/20 12:15 999 mls/hr .[id number] NOA Administration Discontinued Medications Generic Name Dose Route Start Last Admin Trade Name Freq PRN Reason Stop Dose Admin Ketorolac Tromethamine 30 mg 01/06/20 12:01 Toradol 30mg/Ml Vial IM 01/06/20 12:02 ONCE ONE Meclizine HCl 25 mg 01/06/20 11:39 01/06/20 11:44 Antivert 25mg Tablet PO 01/06/20 11:40 25
== END 2020-01-06 12:18 | disposition home or self-care (01) ==
PROVIDERS: Emergency Provider Emergency Medicine; PCP Internal Medicine Adolescent Medicine
DX: R55 Syncope and collapse (principal); J45.909 Unspecified asthma, uncomplicated; I10 Essential (primary) hypertension; F17.210 Nicotine dependence, cigarettes, uncomplicated; Z90.49 Acquired absence of other specified parts of digestive tract; Z88.0 Allergy status to penicillin; Z79.899 Other long term (current) drug therapy; W18.39XA Other fall on same level, initial encounter; Y92.019 Unspecified place in single-family (private) house as the place of occurrence of the external cause
CPT/HCPCS: 71046; 80053; 81001; 81025; 84484; 85025; 87086; 87088; 93005; 96365; 96375; 99284

== ENCOUNTER 2020-08-24 14:56 | Inpatient (IN) | payer OTHER, SELFPAY ==
--- NOTE | 2020-08-24 15:07 | PC.NURSE ---
Pt arrived to the floor at this time.
[2020-08-24 15:50] VITALS: BP 133/67; PULSE 65; RESP 18; TEMP 36.7; O2SAT 95; BMI 31.3
--- NOTE | 2020-08-24 15:58 | HMH.PHACONS ---
- Pharmacy Consult Date: 08/24/20 Time: 15:58 Referring provider: DR. MCMULLEN Reason for Consult:: VANCOMYCIN DOSING Allergies and ADEs:: Allergies Allergy/AdvReac Type Severity Reaction Status Date / Time Penicillins [PENICILLINS] Allergy Unknown Verified 02/21/20 10:16 tetracycline [TETRACYCLINE] Allergy Unknown Verified 02/21/20 10:16 Home Medications:: Home Medications Medication Instructions Recorded Confirmed Type Folic Acid 1 mg PO DAILY 05/27/19 08/24/20 History Montelukast Sodium [Singulair 10mg 10 mg PO PM 05/27/19 08/24/20 History tablet] Omeprazole 20 mg PO DAILY 05/27/19 08/24/20 History linaclotide 290 mcg capsule 290 mcg PO cap 10/25/19 02/21/20 History atenolol 100 mg tablet 100 mg PO DAILY 11/18/19 08/24/20 History potassium chloride 10 mEq 10 meq PO DAILY 11/18/19 08/24/20 History capsule,extended release Adalimumab [Humira(Cf) Pen] 40 mg SQ WEEKLY 08/24/20 08/24/20 History Cetirizine HCl 10 mg PO DAILY 08/24/20 History Clindamycin Phosphate [Cleocin T] 1 applicatio TOPICAL BID 08/24/20 08/24/20 History Cyanocobalamin (Vitamin B-12) 1 ml IM WEEKLY 08/24/20 08/24/20 History [Cyanocobalamin 1,000mcg/mL Vial] Escitalopram Oxalate 20 mg PO DAILY 08/24/20 08/24/20 History Sulfamethoxazole/Trimethoprim 1 tab PO Q8H 08/24/20 08/24/20 History [Sulfamethoxazole-Tmp Ds Tablet] Height: 1.65 m Weight: 85.36 kg Medical History: Reports:: Asthma, Hypertension Denies:: Cancer, Diabetes Mellitus Type 1, Diabetes Mellitus Type 2, MRSA, Seizures Assessment and Plan - Assessment and plan all Dx Assessment and Plan for all problems:: Pharmacokinetic dosing service Objective: Patient: Floor: Age: 40 yo Serum creatinine: 0.60 mg/dL Height: 65 Inches Weight (kg): 85.3 Assessment: IBW (kg): 57.00 Dosing wt(kg): 85.3 Estimated Creatinine clearance (ml/min): 114.4 CRCL method: Cockcroft and Gault using ibw(default). Drug selected: Vancomycin Loading dose (mg): 0 Vd (liters): 64.0 (factor used: 0.75 L/kg) Piter (hr-1): 0.099 Half life (hrs): 7.00 Recommended dose: 1750 mg Interval: 12 hrs Infusion time (hrs): 2.0 Predicted peak (mcg/mL): 35.7 Predicted trough (mcg/mL): 13.27 Total body weight is being used for vancomycin dosing. Recommendations: Give Vancomycin 1750 mg q 12 hrs with an expected Cpeak of 35.7 mcg/ml and an expected Ctrough of 13.27 mcg/ml Thank you for the consult, will continue to follow. FÉLIX ERWIND
--- NOTE | 2020-08-24 15:59 | P.CONPHA_ITS ---
[facility] Pharmacy VTE Monitoring - Patient Demographics Admission date: 08/24/20 Report Date: 08/24/20 Time: 15:59 Allergies/Adverse Reactions: Patient Allergies Penicillins [PENICILLINS] Allergy (Unknown, Verified 02/21/20 10:16) tetracycline [TETRACYCLINE] Allergy (Unknown, Verified 02/21/20 10:16) Height: 1.65 m Weight: 85.36 kg - Prophylaxis VTE Prophylaxis Ordered?: Yes Types of VTE Prophylaxis: TEDS Knee High Location of Applied Device: Bilateral Lower Extremeties
[2020-08-24 16:09] LABS: Basophils # 0.1 K/mm3 (0-0.2); Basophils % 0.7 % (0.1-2.0); Eosinophils # 0.4 K/mm3 (0.0-0.4); Eosinophils % 3.3 % (0.1-12.0); Hematocrit 40.8 % (37.0-47.0); Hemoglobin 13.7 g/dL (12.2-16.2); Lymphocytes # 2.6 K/mm3 (0.7-4.5); Lymphocytes % 21.7 % (10-50); Mean Corpuscular HGB Conc 33.5 g/dL (31.8-35.4); Mean Corpuscular Hemoglobin 32.2 pg (27.0-31.2); Mean Corpuscular Volume 96.2 fl (81-99); Mean Platelet Volume 8.2 fl (7.4-10.4); Monocytes # 0.8 K/mm3 (0.1-1.0); Monocytes % 6.8 % (1.7-9.3); Neutrophils # 8.2 K/mm3 (1.8-7.8); Neutrophils % 67.5 % (37.0-80.0); Platelet Count 304 K/mm3 (142-424); Red Blood Count 4.25 M/mm3 (4.20-5.40); Red Cell Distribution Width 12.9 % (11.5-17.5); White Blood Count 12.2 K/mm3 (4.8-10.8)
[2020-08-24 16:17] LABS: Lactic Acid 0.9 mmol/L (0.7-2.1)
[2020-08-24 16:18] LABS: Alanine Aminotransferase 22 U/L (12-78); Albumin Level 4.5 g/dl (3.5-5.0); Albumin/Globulin Ratio 1.3 (1.1-1.8); Alkaline Phosphatase 95 U/L (38-126); Anion Gap 15.2 mEq/L (5-15); Aspartate Amino Transferase 42 U/L (14-36); Bilirubin,Total 0.4 mg/dl (0.2-1.3); Blood Urea Nitrogen 8 mg/dl (7-17); Calcium 9.3 mg/dl (8.4-10.2); Carbon Dioxide 23 mmol/L (22.0-30.0); Chloride 106 mmol/L (98-107); Creatinine Clearance Estimated 147 mL/min (50-200); Estimated Glomerular Filt Rate 94 ml/min (>60); GFR (African American) 113 ML/MIN (>60); Globulin 3.6 g/dL (1.3-3.2); Glucose 95 mg/dl (74-100); Potassium 4.2 mmoL/L (3.5-5.1); Sodium 140 mmol/L (136-145); Total Protein,Serum 8.1 g/dl (6.3-8.2)
--- NOTE | 2020-08-24 17:02 | HMH.GSCON ---
*Admission Date: 08/24/20 *Reason for consult:: Right breast abscess *History of present illness: Patient is a 40-year-old female. She states that day before yesterday she had developed some swelling and redness of the right medial breast. This persisted and progressed. She developed 2 areas with some minor drainage. She was seen in her primary care provider's office and admitted for inpatient management. Patient has had previous skin abscesses requiring incision and drainage and wound care. She is not diabetic. Denies any inciting event. She does have history of Crohn's disease. She had previously undergone imaging of the left breast 14 months ago for mastalgia symptoms and this was given a BI-RADS 3 classification and 6-month follow-up imaging was recommended. She has never had imaging on the right breast. Review of Systems - Review of Systems Review of systems:: pertinent systems reviewed and negative unless documented below [facility] History Medical History: Reports:: Asthma, Hypertension Denies:: Cancer, Diabetes Mellitus Type 1, Diabetes Mellitus Type 2, MRSA, Seizures *Have you ever received a pneumonia vaccine?: No *Have you received a flu vaccine this season?: No Other Medical History: Reports: Other. Denies: Blood Transfusion Reaction Laterality Cases: Bilateral: Tonsillectomy Other Surgeries: Yes: Appendectomy, Cholecystectomy, , Tubal Ligation, Other Amputation: No Fractures: No - *Social History Last grade of school completed: High school graduate Smoking Status: Current some day smoker Tobacco Type: cigarettes # Packs/Day (cigarettes): 1 #Yrs smoked (if former smoker): 5 Alcohol Intake: never Alcohol Intake Frequency:: other Substance Use Type: denies use *Occupational Status:: unemployed Housing: house Household Members: spouse *Travel in the last 8 weeks: None Family Hx:: Hypertension, Cancer, Diabetes, Coronary Artery Disease Meds Home Medications Medication Instructions Recorded Confirmed Type Folic Acid 1 mg PO DAILY 05/27/19 08/24/20 History Montelukast Sodium [Singulair 10mg 10 mg PO PM 05/27/19 08/24/20 History tablet] Omeprazole 20 mg PO DAILY 05/27/19 08/24/20 History linaclotide 290 mcg capsule 290 mcg PO cap 10/25/19 02/21/20 History atenolol 100 mg tablet 100 mg PO DAILY 11/18/19 08/24/20 History potassium chloride 10 mEq 10 meq PO DAILY 11/18/19 08/24/20 History capsule,extended release Adalimumab [Humira(Cf) Pen] 40 mg SQ WEEKLY 08/24/20 08/24/20 History Cetirizine HCl 10 mg PO DAILY 08/24/20 History Clindamycin Phosphate [Cleocin T] 1 applicatio TOPICAL BID 08/24/20 08/24/20 History Cyanocobalamin (Vitamin B-12) 1 ml IM WEEKLY 08/24/20 08/24/20 History [Cyanocobalamin 1,000mcg/mL Vial] Escitalopram Oxalate 20 mg PO DAILY 08/24/20 08/24/20 History Sulfamethoxazole/Trimethoprim 1 tab PO Q8H 08/24/20 08/24/20 History [Sulfamethoxazole-Tmp Ds Tablet] Allergies Allergy/AdvReac Type Severity Reaction Status Date / Time Penicillins [PENICILLINS] Allergy Unknown Verified 02/21/20 10:16 tetracycline [TETRACYCLINE] Allergy Unknown Verified 02/21/20 10:16 Exam Vital signs and Labs for Last 24 Hours: Temp Pulse Resp BP Pulse Ox 98.0 F 65 18 133/67 95 08/24/20 15:50 08/24/20 15:50 08/24/20 15:50 08/24/20 15:50 08/24/20 15:50 Laboratory Results - last 24 hr 08/24/20 15:55: WBC 12.2 H, RBC 4.25, Hgb 13.7, Hct 40.8, MCV 96.2, MCH 32.2 H, MCHC 33.5, RDW 12.9, Plt Count 304, MPV 8.2, Neut % (Auto) 67.5, Lymph % (Auto) 21.7, [place] % (Auto) 6.8, Eos % (Auto) 3.3, Baso % (Auto) 0.7, Neut # (Auto) 8.2 H, Lymph # (Auto) 2.6, [place] # (Auto) 0.8, Eos # (Auto) 0.4, Baso # (Auto) 0.1 08/24/20 15:55: Sodium 140, Potassium 4.2, Chloride 106, Carbon Dioxide 23, Anion Gap 15.2 H, BUN 8, Creatinine 0.70, Estimated Creat Clear 147, Estimated GFR 94, Est GFR ( Amer) 113, Glucose 95, Calcium 9.3, Total Bilirubin 0.4, AST 42 H, ALT 22, Alkaline Phosphatase 95, Total P
[2020-08-24 17:49] LABS: Adenovirus,PCR Not Detected (NotDetected); Bordetella Pertussis Not Detected (NotDetected); Chlamydophila Pneumoniae, PCR Not Detected (NotDetected); Coronavirus 19, PCR Not Detected (NotDetected); Coronavirus 229E Not Detected (NotDetected); Coronavirus NL63 Not Detected (NotDetected); Coronavirus OC43 Not Detected (NotDetected); Coronovirus HKU1,PCR Not Detected (NotDetected); Human Metapneumovirus Not Detected (NotDetected); Influenza A, PCR Not Detected (NotDetected); Influenza AH1, 2009 Not Detected (NotDetected); Influenza AH1, PCR Not Detected (NotDetected); Influenza AH3,PCR Not Detected (NotDetected); Influenza B, PCR Not Detected (NotDetected); Mycoplasma Pneumoniae, PCR Not Detected (NotDetected); Parainfluenza 1, PCR Not Detected (NotDetected); Parainfluenza 2, PCR Not Detected (NotDetected); Parainfluenza 3, PCR Not Detected (NotDetected); Parainfluenza 4, PCR Not Detected (NotDetected); Respiratory Syncytial Virus Not Detected (NotDetected); Rhinovirus/Enterovirus Not Detected (NotDetected)
--- NOTE | 2020-08-24 18:04 | ECG_ITS ---
APPROVED REPORT Exam: Resting ECG HR:58 bpm ECG Measurements Heart Rate 58 AXES TX 174 P 42 QRSd 78 QRS 29 QT 510 T 56 QTc 500 Conclusion Sinus bradycardia Nonspecific T wave abnormality Prolonged QT Abnormal ECG Electronically signed by : Owen Mars, 08/26/2020 08:41:56
--- NOTE | 2020-08-24 18:08 | PC.WOUNDNOTE ---
Wound Location: right breast Length:1 Width:1 Depth: Undermining Y/N: Tunneling cm: Granulation %: Slough/necrotic tissue %: Inflammation/swelling Y Pain and/or tenderness Y Exudate: Serosanguinous Sanguinous Serosanguinous Seropurulent Purulent yes Color: Clear Una Cloudy/milky [place] Red Green Yellow yes Brown [place]kins Blue Consistency: Thick Thin yes Amount: None Scant Small yes Moderate Large Odor no
[2020-08-24 20:00] VITALS: BP 142/77; PULSE 60; RESP 16; TEMP 37.1; O2SAT 100
[2020-08-25] VITALS (21 sets, daily range): BP systolic 91–143; BP diastolic 55–88; PULSE 59–96; RESP 16–18; TEMP 36.6–43; O2SAT 90–98; BMI 31.0
--- NOTE | 2020-08-25 03:11 | PC.NURSE ---
pt has rested comfortably through the night. no c/o pain. Pt states her breast is only painful to touch, drsg is in place. Lungs CTA, on room air. bowel sounds x4, abd soft and nontender. IV patent, NS @ 50. Pt NPO since midnight. pt able to ambulate independenty in room. VSS, call light in reach, no concerns at this time.
--- NOTE | 2020-08-25 07:40 | HMH.ACPN2 ---
Internal Medicine - PN: Subj *Date: 08/25/20 *Time: 07:40 Interval history: Patient felt good overnight except for some increased urinary frequency. No burning. No fevers. No excess drainage from bandages. Exam Vital signs and Labs for Last 24 Hours: Temp Pulse Resp BP Pulse Ox 98.5 F 62 16 139/77 97 08/25/20 04:00 08/25/20 04:00 08/25/20 04:00 08/25/20 04:00 08/25/20 04:00 Laboratory Results - last 24 hr 08/24/20 15:55: WBC 12.2 H, RBC 4.25, Hgb 13.7, Hct 40.8, MCV 96.2, MCH 32.2 H, MCHC 33.5, RDW 12.9, Plt Count 304, MPV 8.2, Neut % (Auto) 67.5, Lymph % (Auto) 21.7, [place] % (Auto) 6.8, Eos % (Auto) 3.3, Baso % (Auto) 0.7, Neut # (Auto) 8.2 H, Lymph # (Auto) 2.6, [place] # (Auto) 0.8, Eos # (Auto) 0.4, Baso # (Auto) 0.1 08/24/20 15:55: Sodium 140, Potassium 4.2, Chloride 106, Carbon Dioxide 23, Anion Gap 15.2 H, BUN 8, Creatinine 0.70, Estimated Creat Clear 147, Estimated GFR 94, Est GFR ( Amer) 113, Glucose 95, Calcium 9.3, Total Bilirubin 0.4, AST 42 H, ALT 22, Alkaline Phosphatase 95, Total Protein 8.1, Albumin 4.5, Globulin 3.6 H, Albumin/Globulin Ratio 1.3 08/24/20 15:55: Lactate 0.9 08/24/20 17:30: Chlamy pneumoniae PCR Not detected, Adenovirus (PCR) Not detected, B. pertussis DNA (PCR) Not detected, Coronavirus OC43 (PCR) Not detected, Coronavirus HKU1 (PCR) Not detected, Coronavirus 229E (PCR) Not detected, SARS-CoV-2 (PCR) Not detected, Coronavirus NL63 (PCR) Not detected, Human Metapneumovir PCR Not detected, Influenza A (H1) PCR Not detected, Influ A (H1N1/09) PCR Not detected, Influenza A (H3) PCR Not detected, Influenza Type A (PCR) Not detected, Influenza Type B (PCR) Not detected, M. pneumoniae (PCR) Not detected, Parainfluenza 1 (PCR) Not detected, Parainfluenza 2 (PCR) Not detected, Parainfluenza 3 (PCR) Not detected, Parainfluenza 4 (PCR) Not detected, RSV (PCR) Not detected, Entero/Rhino (PCR) Not detected I & O for Last 24 hours: Intake & Output 08/22/20 08/23/20 08/24/20 08/25/20 11:59 11:59 11:59 11:59 Weight 186 lb 6 oz Microbiology Reports for the Last 24 Hours: Microbiology 08/24/20 15:55 Breast,Right - Abscess Gram Stain - Final Narrative: Patient comfortable, respiratory and cardiopulmonary exam assessment unremarkable, no visible edema. Alert and oriented, ENT exam otherwise clear. Breast exam per surgery Assessment and Plan (1) Abscess of right breast unrelated to or Status: Acute Category: Medical Code(s): N61.1 - Abscess of the breast and nipple - Assessment and plan all Dx Assessment and Plan for all problems:: Appreciate surgery input, to the OR today.
--- NOTE | 2020-08-25 08:07 | HMH.PHAINT ---
MEDICATION RECONCILIATION COMPLETED USING EXTERNAL FILL HISTORY AND PHYSICIAN OFFICE LIST
--- NOTE | 2020-08-25 10:50 | P.PN_ITS ---
[facility] Anesthesia Checklist - Patient Identification Patient Identification: Arm Band - Structural Data Admitted From: Home Planned Operative Procedure/s: I & D breast abscess Consent for Planned Operative Procedure(s) Verified: Yes - NPO Status Verified Time NPO: 00:00 - Additional verifications Anesthesia Reactions: No Hx Blood Transfusions: No Blood Transfusion Reaction: No - Airway Assessment C-Spine Mobility Assessed: Yes TMJ Mobility Assessed: Yes Dentition: Good Dentition - Neurological Assessment Level of Consciousness: Awake, Alert Hx Seizures: No Numbness or tingling in extremities: No - Anesthesia Plan Anesthesia Risk discussed: Yes Anesthesia Plan: Verified ASA Class: II Anesthesia Type: General [facility] History I have reviewed the patient's past medical history: Yes Medical History: Reports:: Asthma, Hypertension Denies:: Cancer, Diabetes Mellitus Type 1, Diabetes Mellitus Type 2, MRSA, Seizures *Have you ever received a pneumonia vaccine?: No *Have you received a flu vaccine this season?: No Other Medical History: Reports: Other. Denies: Blood Transfusion Reaction Anesthesia experience/problems:: None Laterality Cases: Bilateral: Tonsillectomy Other Surgeries: Yes: Appendectomy, Cholecystectomy, , Tubal Ligation, Other Amputation: No Fractures: No - *Social History Last grade of school completed: High school graduate Smoking Status: Current some day smoker Tobacco Type: cigarettes # Packs/Day (cigarettes): 1 #Yrs smoked (if former smoker): 5 Alcohol Intake: never Alcohol Intake Frequency:: other Substance Use Type: denies use *Occupational Status:: unemployed Housing: house Household Members: spouse *Travel in the last 8 weeks: None Family Hx:: Hypertension, Cancer, Diabetes, Coronary Artery Disease
--- NOTE | 2020-08-25 11:33 | P.OP_ITS ---
Date of procedure: 08/25/20 Pre-op Diagnosis:: Right breast abscess and cellulitis Post-op Diagnosis:: Same Procedure performed:: Incision and drainage of right breast abscess x2 with debridement of skin Surgeon:: Angel Edward MD GERIATRIC PHYSICAL THERAPIST:: Other Anesthesia: LMA Estimated blood loss (mL): 5 Clinical Note:: Patient was admitted yesterday with a 2-day history of right breast abscess. She had quite significant erythema and cellulitis with 2 areas which were somewhat fluctuant and draining purulent material. There was concern that this tract deep in the breast. She was started on antibiotics. Plan was made for incision and drainage under anesthesia. Operative findings:: Superficial breast abscess involving skin x2. Operative note:: Patient was taken the operating room. She was positioned in the supine position. Anesthesia was induced via LMA. Right breast was prepped and draped in the standard surgical fashion. She had 2 somewhat fluctuant areas draining purulent material in the right medial breast 1 superiorly and 1 inferiorly. Incision was made at the superior site. There is some purulent material which was sent for culture. The overlying devitalized somewhat ulcerated skin was excised sharply. The underlying wound was probed. This did not track deeply to the other wound and they appear to be 2 separate areas. Separate incision was made at the lower site. Culture was sent as well. This was superficial and did not track deeply as both sites were probed vigorously for any deep tracking or loculations of which none were noted. Wound was irrigated. Local anesthetic was infiltrated into both sites. Superficial wounds were packed with 1/2 inch plain packing gauze and clean dry sterile dressing was applied. Condition: stable Disposition: PACU Specimens:: Debrided tissue Culture sent Complications:: None immediately apparent
--- NOTE | 2020-08-25 11:43 | P.PN_ITS ---
[facility] Anesthesia Record Part I Intake, IV Amount: 800 Estimated blood loss (mL): 5 Urine output (mL): 0 Blood Pressure: 125/58 SaO2: 95 Pulse Rate: 92 Respiratory Rate: 18 Temperature: 98.5 F Patient is:: Awake Stable to PACU at:: 11:38
--- NOTE | 2020-08-25 17:08 | PC.NURSE ---
she is aox4, able to make needs known to staff, she has tolerated po intake well since surgery, she has not c/o pain, vital signs wnl, no needs at this time.
[2020-08-26] VITALS: BP 111/69; PULSE 60; RESP 16; TEMP 36.7; O2SAT 96
[2020-08-26 04:00] VITALS: BP 118/74; PULSE 61; RESP 18; TEMP 36.4; O2SAT 97
[2020-08-26 05:14] VITALS: BMI 30.2
[2020-08-26 05:53] LABS: Vancomycin,Trough 14.3 ug/mL (5.0-10.0)
--- NOTE | 2020-08-26 06:13 | PC.NURSE ---
[facility] approval from [facility] at [id number]
--- NOTE | 2020-08-26 06:16 | PC.NURSE ---
Patient resting with eyes closed most of this shift. Changed dressing using 4x4 ABD and tape due to previous dressing had come off. Patient tolerated dressing change well. Patient shows no s/s of acute distress noted at this time; will continue to monitor.
[2020-08-26 08:00] VITALS: BP 131/74; PULSE 62; RESP 17; TEMP 36.7; O2SAT 95
--- NOTE | 2020-08-26 08:21 | HMH.DCSUM ---
General - General Admission date:: 08/24/20 Discharge date: 08/26/20 HPI HPI: Patient is a 40-year-old female. She states that day before yesterday she had developed some swelling and redness of the right medial breast. This persisted and progressed. She developed 2 areas with some minor drainage. She was seen in my office and admitted for inpatient management. Patient has had previous skin abscesses requiring incision and drainage and wound care. She is not diabetic. Denies any inciting event. She does have history of Crohn's disease. She had previously undergone imaging of the left breast 14 months ago for mastalgia symptoms and this was given a BI-RADS 3 classification and 6-month follow-up imaging was recommended. She has never had imaging on the right breast. Hospital Course Hospital Course: Patient was admitted, placed on IV vancomycin and clindamycin. Tolerated this well. Surgery was consulted-appreciate management assistance. Taken to the OR the following morning. Please see operative notes. 2 separate areas of abscess were identified, these were not tracking or contiguous, they were drained without evidence of deep fistula formation. Patient this morning did well, very minimal pain. No fevers, felt better. She will be discharged home. Discharge plan will be to continue Bactrim therapy. I will add clindamycin over the weekend as we await culture results. I will also do short-term pain regimen as noted for dressing change. Close follow-up in our office for review of cultures and antibiotic therapy selection. Objective Vital signs: Temp Pulse Resp BP Pulse Ox 98.0 F 62 17 131/74 95 08/26/20 08:00 08/26/20 08:00 08/26/20 08:00 08/26/20 08:00 08/26/20 08:00 no acute distress - *Routine HEENT Exam Head: Present: normocephalic Eye: Present: EOMI, PERRL ENT: Present: mucous membranes moist - *Routine Neck Exam Present: supple - Routine Chest/Breast/Axilla Exam Comments: Right breast with surgical wounds and packing. Dressings are clean and dry and intact, no red streaking around the dressing. - *Routine Respiratory Exam Present: CTA bilaterally - *Routine Cardiovascular Exam Present: RRR - *Routine Abdominal Exam Present: soft, normoactive bowel sounds. Absent: tenderness - *Routine Extremities Exam Absent: cyanosis, clubbing, edema - *Routine Skin Exam Present: warm. Absent: rash - Detailed Eye Exam Eyelids: Bilateral normal inspection Results Labs on day of discharge: Labs from last 24 hours 08/26/20 04:30 Vancomycin Trough 14.3 H Preliminary micro results at discharge 08/24/20 15:55 Abscess Culture - Preliminary Breast,Right - Abscess DS: Diagnosis - Discharge Diagnosis (1) Abscess of right breast unrelated to or Status: Resolved Discharge Plan - Patient Discharge Instructions ACTIVITY: Continue current activity DIET: continue same diet Patient Instructions: How to Care for a Surgical Wound, Surgical Site Infection, DI for Skin Abscess, DI for Incision and Drainage - Follow up Plan Follow up with: Jessy Case APRN [Nurse Practitioner] - 08/29/20 Disposition: Home, Self-[facility] Medications: Home Medications Medication Instructions Recorded Confirmed Type Folic Acid 1 mg PO DAILY 05/27/19 08/24/20 History Montelukast Sodium [Singulair 10mg 10 mg PO PM 05/27/19 08/24/20 History tablet] Omeprazole 20 mg PO DAILY 05/27/19 08/24/20 History atenolol 100 mg tablet 100 mg PO DAILY 11/18/19 08/24/20 History potassium chloride 10 mEq 10 meq PO DAILY 11/18/19 08/24/20 History capsule,extended release Adalimumab [Humira(Cf) Pen] 40 mg SQ WEEKLY 08/24/20 08/24/20 History Clindamycin Phosphate [Cleocin T] 1 applicatio TOPICAL BID 08/24/20 08/24/20 History Cyanocobalamin (Vitamin B-12) 1 ml IM WEEKLY 08/24/20 08/24/20 History [Cyanocobalamin 1,000mcg/mL Vial] Escitalopram
--- NOTE | 2020-08-26 08:41 | HMH.GSPN ---
Subjective Patient reports: no new complaints Narrative: Doing well. No complaints. Progress Note: A&P (1) Abscess of right breast unrelated to or Status: Resolved Assessment and Plan for All Diagnoses:: Discharge today on wound care and oral antibiotics. Exam Vital signs and Labs for Last 24 Hours: Temp Pulse Resp BP Pulse Ox 98.0 F 62 17 131/74 95 08/26/20 08:00 08/26/20 08:00 08/26/20 08:00 08/26/20 08:00 08/26/20 08:00 Laboratory Results - last 24 hr 08/26/20 04:30: Vancomycin Trough 14.3 H I & O for Last 24 hours: Intake & Output 08/23/20 08/24/20 08/25/20 08/26/20 11:59 11:59 11:59 11:59 Intake Total 800 / 800 960 / 960 Balance 800 / 800 960 / 960 Weight 186 lb 6 oz 181 lb 6 oz Microbiology Reports for the Last 24 Hours: Microbiology 08/25/20 12:00 Breast,Right - Abscess Gram Stain - Final 08/24/20 15:55 Breast,Right - Abscess Gram Stain - Final 08/24/20 15:55 Breast,Right - Abscess Abscess Culture - Preliminary 08/25/20 12:00 Breast,Right - Abscess Gram Stain - Final 08/25/20 12:00 Breast,Right - Abscess Gram Stain - Final
--- NOTE | 2020-08-26 10:44 | P.PN_ITS ---
[facility] Anesthesia Record Part II Discharge Time: 11:58 Destination: Medical Surgical Department PACU nurse assessment reviewed?: Yes Patient Condition:: Good Anesthesia Complications:: None Swallowing reflex intact?: Yes Cyanosis?: No Blood Pressure: 107/71 Pulse Rate: 91 Temperature: 98.5 F Mental Status: Alert & Oriented Pain level:: 0 Nausea and/or vomitting:: None Intake, IV Amount: 0
[2020-08-26 10:45] VITALS: BP 107/71; PULSE 91; TEMP 36.9
--- NOTE | 2020-09-07 07:50 | HMH.HP ---
*Admission Date: 08/24/20 *Chief complaint: Right breast mass, swelling and drainage *History of present illness: Patient is a 40-year-old female. She states that day before yesterday she had developed some swelling and redness of the right medial breast. This persisted and progressed. She developed 2 areas with some minor drainage. She was seen in my office and admitted for inpatient management. Patient has had previous skin abscesses requiring incision and drainage and wound care. She is not diabetic. Denies any inciting event. She does have history of Crohn's disease. She had previously undergone imaging of the left breast 14 months ago for mastalgia symptoms and this was given a BI-RADS 3 classification and 6-month follow-up imaging was recommended. She has never had imaging on the right breast. [facility] History I have reviewed the patient's past medical history: Yes Medical History: Reports:: Asthma, Hypertension Denies:: Cancer, Diabetes Mellitus Type 1, Diabetes Mellitus Type 2, MRSA, Seizures *Have you ever received a pneumonia vaccine?: No *Have you received a flu vaccine this season?: No Other Medical History: Reports: Other. Denies: Blood Transfusion Reaction Anesthesia experience/problems:: None Laterality Cases: Bilateral: Tonsillectomy Other Surgeries: Yes: Appendectomy, Cholecystectomy, , Tubal Ligation, Other Amputation: No Fractures: No - *Social History Last grade of school completed: High school graduate Smoking Status: Current some day smoker Tobacco Type: cigarettes # Packs/Day (cigarettes): 1 #Yrs smoked (if former smoker): 5 Alcohol Intake: never Alcohol Intake Frequency:: other Substance Use Type: denies use *Occupational Status:: unemployed Housing: house Household Members: spouse *Travel in the last 8 weeks: None Family Hx:: Hypertension, Cancer, Diabetes, Coronary Artery Disease Review of Systems - Review of Systems Review of systems:: pertinent systems reviewed and negative unless documented below Meds Home Medications Medication Instructions Recorded Confirmed Type Folic Acid 1 mg PO DAILY 05/27/19 09/04/20 History Montelukast Sodium [Singulair 10mg 10 mg PO PM 05/27/19 09/04/20 History tablet] Omeprazole 20 mg PO DAILY 05/27/19 09/04/20 History atenolol 100 mg tablet 100 mg PO DAILY 11/18/19 09/04/20 History potassium chloride 10 mEq 10 meq PO DAILY 11/18/19 09/04/20 History capsule,extended release Adalimumab [Humira(Cf) Pen] 40 mg SQ WEEKLY 08/24/20 09/04/20 History Clindamycin Phosphate [Cleocin T] 1 applicatio TOPICAL BID 08/24/20 09/04/20 History Cyanocobalamin (Vitamin B-12) 1 ml IM WEEKLY 08/24/20 09/04/20 History [Cyanocobalamin 1,000mcg/mL Vial] Escitalopram Oxalate 20 mg PO DAILY 08/24/20 09/04/20 History Sulfamethoxazole/Trimethoprim 1 tab PO Q8H 08/24/20 09/04/20 History [Sulfamethoxazole-Tmp Ds Tablet] clindamycin HCL [Clindamycin HCl] 300 mg PO TID #21 cap 08/26/20 09/04/20 Rx Allergies Allergy/AdvReac Type Severity Reaction Status Date / Time Penicillins [PENICILLINS] Allergy Unknown Verified 09/04/20 10:36 tetracycline [TETRACYCLINE] Allergy Unknown Verified 09/04/20 10:36 Exam Vital signs and Labs for Last 24 Hours: Temp Pulse Resp BP Pulse Ox 98.5 F 91 H 17 107/71 L 95 08/26/20 10:45 08/26/20 10:45 08/26/20 08:00 08/26/20 10:45 08/26/20 08:00 - Constitutional obese - *Routine HEENT Exam Head: Present: normocephalic Eye: Present: EOMI, PERRL ENT: Present: mucous membranes moist - *Routine Neck Exam Present: supple. Absent: lymphadenopathy - Routine Chest/Breast/Axilla Exam Chest wall: Present: tenderness, mass Breast: Present: tenderness, mass, erythema Comments: Suppurative purulent areas on the medial aspect of the right breast. Draining purulent fluid, appears to be 2 discrete areas that do not appear to be connected on cursory exam. Very tender. Each area is approximately 2 cm in diameter.
== END 2020-08-26 08:50 | disposition home or self-care (01) | DRG 584 ==
PROVIDERS: Surgery; Admitting Provider Internal Medicine Adolescent Medicine; PCP Internal Medicine Adolescent Medicine; Visit Provider Internal Medicine Adolescent Medicine
PROC: 0HB5XZZ Excision of Chest Skin, External Approach (ICD-10-PCS; principal; 2020-08-25 11:00)
DX: N61.1 Abscess of the breast and nipple (principal); K50.90 Crohn's disease, unspecified, without complications; Z88.1 Allergy status to other antibiotic agents; Z88.0 Allergy status to penicillin; J45.909 Unspecified asthma, uncomplicated; I10 Essential (primary) hypertension; F17.210 Nicotine dependence, cigarettes, uncomplicated; Z90.49 Acquired absence of other specified parts of digestive tract
CPT/HCPCS: 10061; 36415; 80053; 80202; 83605; 85025; 87040; 87070; 87075; 87077; 87186; 87205; 87581; 87633; 87798; 93005; J3370

== ENCOUNTER → 2020-09-09 12:29 | Outpatient (CLI) | payer OTHER, SELFPAY ==
[2020-09-09 13:38] LABS: Coronavirus 19 IgG Antibody Positive (Negative); Coronavirus 19 IgM Antibody Negative (Negative)
== END ==
PROVIDERS: Visit Provider Surgery
DX: Z01.812 Encounter for preprocedural laboratory examination (principal); Z20.822 Contact with and (suspected) exposure to COVID-19; L02.415 Cutaneous abscess of right lower limb
CPT/HCPCS: 36415; 86328

== ENCOUNTER 2020-09-11 06:12 | Day surgery (SDC) | payer OTHER, SELFPAY ==
[2020-09-08 15:53] VITALS: BMI 31.6
[2020-09-11] VITALS (10 sets, daily range): BP systolic 102–129; BP diastolic 73–89; PULSE 66–82; RESP 14–20; TEMP 36.2–36.8; O2SAT 93–97
--- NOTE | 2020-09-11 07:02 | P.PN_ITS ---
[facility] Anesthesia Checklist - Patient Identification Patient Identification: Arm Band - Structural Data Admitted From: Home Planned Operative Procedure/s: I & D Consent for Planned Operative Procedure(s) Verified: Yes - NPO Status Verified Time NPO: 00:00 - Additional verifications Anesthesia Reactions: No Hx Blood Transfusions: No Blood Transfusion Reaction: No - Airway Assessment C-Spine Mobility Assessed: Yes TMJ Mobility Assessed: Yes Dentition: Good Dentition - Neurological Assessment Level of Consciousness: Awake, Alert Hx Seizures: No Numbness or tingling in extremities: No - Anesthesia Plan Anesthesia Risk discussed: Yes Anesthesia Plan: Verified ASA Class: II Anesthesia Type: General [facility] History I have reviewed the patient's past medical history: Yes Medical History: Reports:: Anxiety, Asthma, Hypertension Denies:: Cancer, Diabetes Mellitus Type 1, Diabetes Mellitus Type 2, Internal Pacemaker, MRSA, Seizures *Have you ever received a pneumonia vaccine?: No *Have you received a flu vaccine this season?: No Other Medical History: Reports: Other. Denies: Blood Transfusion Reaction Anesthesia experience/problems:: Hiccups Laterality Cases: Bilateral: Tonsillectomy Other Surgeries: Yes: Appendectomy, Cholecystectomy, , Tubal Ligation, Other. No: Pacemaker Amputation: No Fractures: No - *Social History Last grade of school completed: High school graduate Smoking Status: Current every day smoker Tobacco Type: cigarettes # Packs/Day (cigarettes): 1 #Yrs smoked (if former smoker): 5 Alcohol Intake: never Alcohol Intake Frequency:: other Substance Use Type: denies use *Occupational Status:: unemployed Housing: house Household Members: spouse, family *Travel in the last 8 weeks: None Family Hx:: Hypertension, Cancer, Diabetes, Coronary Artery Disease
[2020-09-11 07:08] LABS: Urine Pregnancy, HCG Qual. Negative (Negative)
--- NOTE | 2020-09-11 07:53 | HMH.OPNOTE ---
Date of procedure: 09/11/20 Pre-op Diagnosis:: Right lateral thigh abscess Post-op Diagnosis:: Same Procedure performed:: Incision and drainage of right thigh abscess with debridement of skin and subcutaneous tissue Surgeon:: Angel Edward MD [employer]:: Other Anesthesia: LMA Estimated blood loss (mL): 10 Clinical Note:: Patient is a 40-year-old female. She recently had 2 superficial abscesses of the breast which required incision and drainage and debridement. She has a prior history of right medial thigh soft tissue infection requiring incision and drainage and debridement. Many years ago she had perineal hidradenitis requiring incision and drainage and debridement. She recently presented to the office for follow-up after her breast abscesses were treated and she had mentioned a abscess on the right proximal lateral thigh area. This has been present as her initial complaint even prior to the breast. It has been refractory to antibiotics. She was found to have evidence of fluctuance somewhat erythematous soft tissue infection. Due to its persistence and refractory nature to oral antibiotics plan was made for incision and drainage with debridement and unroofing. Operative findings:: Possibly consistent with hidradenitis with some granulomatous subcutaneous tissue and somewhat purulent fluid Operative note:: Patient was taken the operating room. She was given preoperative intravenous antibiotics. In the operating room she was positioned in a supine position. General anesthesia was induced via LMA. She was then positioned somewhat and partial lateral position to allow for exposure to the area. This was prepped and draped in the standard surgical fashion. Limited incision was made centrally overlying the area of fluctuance. There is some cloudy somewhat purulent the fluid which exuded from the wound. This was sent for culture. There was an underlying abscess pocket. This was opened using electrocautery. Overlying devitalized skin was excised using electrocautery. There was underlying somewhat granulomatous appearing subcutaneous tissue which would be consistent with hidradenitis. Debridement was carried out using electrocautery with some abrasive debridement using Ray-Charles sponges. Local anesthetic was infiltrated after the wound was irrigated. Hemostasis was achieved with electrocautery. Overall size of the initial abscess was approximately 5 x 4 cm. Debrided her wound measured approximately 3 x 2 and half centimeters. It involved skin and subcutaneous tissue. The wound was packed with a saline moistened gauze and covered with clean dry sterile dressing. Condition: stable Disposition: PACU Specimens:: Debrided tissue Complications:: None immediately apparent
--- NOTE | 2020-09-11 07:55 | HMH.ANESI ---
[facility] Anesthesia Record Part I Intake, IV Amount: 100 Estimated blood loss (mL): 10 Urine output (mL): 0 Blood Pressure: 102/73 SaO2: 95 Pulse Rate: 82 Respiratory Rate: 14 Temperature: 98.3 F Patient is:: Drowsy, Oral/Nasal airway Stable to PACU at:: 07:53
[2020-09-12 06:59] VITALS: BP 120/83; PULSE 78; TEMP 36.7
--- NOTE | 2020-09-12 06:59 | P.PN_ITS ---
[facility] Anesthesia Record Part II Discharge Time: 08:23 Destination: Surgical Day Care (OP Surgery) PACU nurse assessment reviewed?: Yes Patient Condition:: Good Anesthesia Complications:: None Swallowing reflex intact?: Yes Cyanosis?: No Blood Pressure: 120/83 Pulse Rate: 78 Temperature: 98.1 F Mental Status: Alert & Oriented Pain level:: 0 Nausea and/or vomitting:: None Intake, IV Amount: 100
== END 2020-09-11 08:57 | disposition home or self-care (01) ==
PROVIDERS: PCP Internal Medicine Adolescent Medicine; Visit Provider Surgery
PROC: (CPT 10061; principal; 2020-09-11 07:30)
DX: N61.1 Abscess of the breast and nipple (principal); L73.2 Hidradenitis suppurativa; I10 Essential (primary) hypertension; J45.909 Unspecified asthma, uncomplicated; F41.9 Anxiety disorder, unspecified; F32.9 Major depressive disorder, single episode, unspecified; K50.90 Crohn's disease, unspecified, without complications; Z90.49 Acquired absence of other specified parts of digestive tract; Z72.0 Tobacco use; Z88.0 Allergy status to penicillin; Z88.1 Allergy status to other antibiotic agents; Z79.899 Other long term (current) drug therapy
CPT/HCPCS: 10061; 81025; 87070; 87075; 87077; 87186; 87205; 96374; J2405

== ENCOUNTER 2020-09-12 17:29 | Emergency (ER) | payer OTHER, SELFPAY ==
[2020-09-12 17:37] VITALS: BP 130/81; PULSE 59; O2SAT 98
[2020-09-12 17:40] VITALS: BP 130/81; PULSE 60; RESP 16; TEMP 36.8; O2SAT 98; BMI 31.6
--- NOTE | 2020-09-12 17:56 | HMH.EDGENADL ---
ED Disposition Clinical Impression: Post-op bleeding Qualifiers: Surgical complication system/body Area: skin Procedure type: dermatologic Qualified Code(s): L76.21 - Postprocedural hemorrhage of skin and subcutaneous tissue following a dermatologic procedure Disposition: Home, Self-Care Condition on Discharge: Good Instructions: DI for Skin Abscess Additional Instructions: Leave current bandage on for 24 hours. Follow-up in Dr. Edward's clinic tomorrow for next bandage change. Call his office tomorrow morning to make arrangements. Call Dr. Edward for further problems. Referrals: Owen Mars MD [Primary Care Provider] - - Critical Care Critical Care Time: No Attestation: On 09/12/20, the high probability of a clinically significant, sudden or life threatening deterioration of the following system(s) required my full and direct attention, intervention and personal management. The time I documented below is in addition to time spent performing reported procedures but includes the following listed in this critical care notation. Medical Decision Making - Medical Records Medical records reviewed: Yes: I reviewed the patient's medical records. MR Comment: Reviewed operative report - Librado Inquiry Pt receiving controlled substance: No Vital Signs: 09/12/20 17:40 Temperature 98.3 F Temperature Source Oral Pulse Rate [Right Radial] 60 Respiratory Rate 16 Blood Pressure [Right Arm] 130/81 Blood Pressure Mean [Right Arm] 97 Blood Pressure Source [Right Arm] Automatic Cuff Blood Pressure Position [Right Arm] Sitting 02 Sat by Pulse Oximetry 98 Oxygen Delivery Method Room Air - Physician Consults Physician Consulted: Cheyanne Time: 18:15 Reason -: Surgical Eval/Care Comment/Response: Bandage with Surgicel, gauze, Salomon wrap. Leave on for 24 hours, next bandage change in the clinic tomorrow. Patient to call tomorrow to make arrangements. General Adult HPI - General Chief complaint: Skin/Abscess/Foreign Body Stated complaint: sURG 09/11 r THIGH,bLEEDING Time Seen by Provider: 09/12/20 17:56 Mode of Arrival: Ambulatory Limitations: No Limitations Description of Symptoms (Recalled from ER Triage Doc. by RN): 24 hour post I&D c/o excessive bleeding - History of Present Illness HPI narrative: The patient had excision/debridement of an abscess on her right lateral thigh yesterday by Dr. Edward. Today she keeps bleeding through her bandage. She tried to call Dr. Edward, but he was out of the office today, so she came to the emergency department. She says she last changed the bandage prior to coming to the emergency room. She is not on any blood thinners. - Related Data Home Medications Medication Instructions Recorded Confirmed Folic Acid 1 mg PO DAILY 05/27/19 09/11/20 Montelukast Sodium [Singulair 10mg 10 mg PO PM 05/27/19 09/11/20 tablet] Omeprazole 20 mg PO DAILY 05/27/19 09/11/20 atenolol 100 mg tablet 100 mg PO DAILY 11/18/19 09/11/20 potassium chloride 10 mEq 10 meq PO DAILY 11/18/19 09/11/20 capsule,extended release Adalimumab [Humira(Cf) Pen] 40 mg SQ WEEKLY 08/24/20 09/11/20 Cyanocobalamin (Vitamin B-12) 1 ml IM WEEKLY 08/24/20 09/11/20 [Cyanocobalamin 1,000mcg/mL Vial] Escitalopram Oxalate 20 mg PO DAILY 08/24/20 09/11/20 Sulfamethoxazole/Trimethoprim 1 tab PO Q8H 08/24/20 09/11/20 [Sulfamethoxazole-Tmp Ds Tablet] Previous Rx's Medication Instructions Recorded Hydrocod/Acet 5/325 mg [Norton 1 - 2 tab PO Q6HP PRN #17 tab 09/11/20 5/325mg tablet] Allergies Allergy/AdvReac Type Severity Reaction Status Date / Time Penicillins [PENICILLINS] Allergy Unknown Verified 09/12/20 17:47 tetracycline [TETRACYCLINE] Allergy Unknown Verified 09/12/20 17:47 [facility] History - Hepatitis A Screen Drug use history?: No High risk sexual behaviors?: No History of sexually transmitted infection?: No Currently employed?: No Childcare worker?: No Do you have indoor plu
--- NOTE | 2020-09-12 18:04 | PC.NURSE ---
Dr Edward paged
--- NOTE | 2020-09-12 18:06 | PC.NURSE ---
Dr Edward returned call.
[2020-09-12 18:31] VITALS: BP 119/73; PULSE 56; O2SAT 96
--- NOTE | 2020-09-12 18:35 | PC.NURSE ---
surgiseal placed on wound, 4x4 and wrapped with samantha wrap. Pt tolerated well, no drainage noted at this time.
[2020-09-12 18:38] VITALS: BP 134/78; PULSE 72; RESP 16; TEMP 36.8; O2SAT 98
== END 2020-09-12 18:40 | disposition home or self-care (01) ==
PROVIDERS: Emergency Provider Emergency Medicine; PCP Internal Medicine Adolescent Medicine
DX: L76.21 Postprocedural hemorrhage of skin and subcutaneous tissue following a dermatologic procedure (principal); I10 Essential (primary) hypertension; F41.9 Anxiety disorder, unspecified; J45.909 Unspecified asthma, uncomplicated; F17.210 Nicotine dependence, cigarettes, uncomplicated
CPT/HCPCS: 99281

== ENCOUNTER → 2020-09-27 13:47 | Outpatient (CLI) | payer OTHER, SELFPAY ==
[2020-09-27 15:08] LABS: Basophils # 0.1 K/mm3 (0-0.2); Eosinophils # 0.2 K/mm3 (0.0-0.4); Eosinophils % 2.7 % (0.1-12.0); Hematocrit 39.6 % (37.0-47.0); Hemoglobin 12.7 g/dL (12.2-16.2); Lymphocytes # 2.6 K/mm3 (0.7-4.5); Lymphocytes % 30.6 % (10-50); Mean Corpuscular Volume 100.1 fl (81-99); Mean Platelet Volume 8.5 fl (7.4-10.4); Monocytes # 0.6 K/mm3 (0.1-1.0); Monocytes % 6.5 % (1.7-9.3); Neutrophils % 59.1 % (37.0-80.0); Platelet Count 271 K/mm3 (142-424); Red Blood Count 3.96 M/mm3 (4.20-5.40); Red Cell Distribution Width 13.1 % (11.5-17.5); White Blood Count 8.5 K/mm3 (4.8-10.8)
[2020-09-27 15:48] LABS: Alanine Aminotransferase 16 U/L (12-78); Albumin Level 4.3 g/dl (3.5-5.0); Albumin/Globulin Ratio 1.5 (1.1-1.8); Alkaline Phosphatase 57 U/L (38-126); Anion Gap 12.6 mEq/L (5-15); Aspartate Amino Transferase 20 U/L (14-36); Bilirubin,Total 0.4 mg/dl (0.2-1.3); Blood Urea Nitrogen 10 mg/dl (7-17); Calcium 9.4 mg/dl (8.4-10.2); Carbon Dioxide 24 mmol/L (22.0-30.0); Chloride 107 mmol/L (98-107); Estimated Glomerular Filt Rate 112 ml/min (>60); GFR (African American) 135 ML/MIN (>60); Globulin 2.9 g/dL (1.3-3.2); Glucose 101 mg/dl (74-100); Potassium 4.6 mmoL/L (3.5-5.1); Sodium 139 mmol/L (136-145); Total Protein,Serum 7.2 g/dl (6.3-8.2)
[2020-09-27 15:53] LABS: C-Reactive Protein 5.6 mg/L (0-4)
[2020-09-27 15:57] LABS: Erythrocyte Sedimentation Rate 26 mm/hr (0-20)
[2020-10-01 10:37] LABS: QuantiFERON-TB Gold Plus Negative (Negative)
== END ==
PROVIDERS: Visit Provider Nurse Practitioner
DX: K50.90 Crohn's disease, unspecified, without complications (principal)
CPT/HCPCS: 80053; 85025; 85651; 86140; 86480

== ENCOUNTER → 2020-09-28 15:04 | Outpatient (CLI) | payer OTHER, SELFPAY ==
[2020-10-03 20:56] LABS: Calprotectin, Fecal 100 ug/g (0-120)
== END ==
PROVIDERS: Visit Provider Nurse Practitioner
DX: K50.90 Crohn's disease, unspecified, without complications (principal)
CPT/HCPCS: 83993

== ENCOUNTER → 2020-12-27 12:59 | Outpatient (CLI) | payer OTHER, SELFPAY ==
[2020-12-27 13:03] LABS: Microscopic, Urine URINE MICROSCOPIC (MICROSCOPIC)
[2020-12-27 13:53] LABS: Basophils # 0.1 K/mm3 (0-0.2); Eosinophils # 0.4 K/mm3 (0.0-0.4); Eosinophils % 3.8 % (0.1-12.0); Hematocrit 39.7 % (37.0-47.0); Hemoglobin 13.2 g/dL (12.2-16.2); Lymphocytes # 3.2 K/mm3 (0.7-4.5); Lymphocytes % 32.8 % (10-50); Mean Corpuscular HGB Conc 33.2 g/dL (31.8-35.4); Mean Corpuscular Hemoglobin 32.3 pg (27.0-31.2); Mean Corpuscular Volume 97.3 fl (81-99); Mean Platelet Volume 8.3 fl (7.4-10.4); Monocytes # 0.5 K/mm3 (0.1-1.0); Monocytes % 5.4 % (1.7-9.3); Neutrophils # 5.5 K/mm3 (1.8-7.8); Platelet Count 329 K/mm3 (142-424); Red Blood Count 4.08 M/mm3 (4.20-5.40); Red Cell Distribution Width 13.2 % (11.5-17.5); White Blood Count 9.7 K/mm3 (4.8-10.8)
[2020-12-27 14:25] LABS: Appearance,Urine SL CLOUDY (Clear); Blood, Urine 3+ (Negative); Color,Urine ORANGE (Yellow); Glucose,Urine (UA) Negative (Negative); Ketones,Urine Negative (Negative); Leukocyte Esterase,Urine 1+ (Negative); Nitrate,Urine POSITIVE (Negative); PH,Urine 5.5 (5.0-8.5); Protein,Urine 1+ (Negative); Specific Gravity, Urine 1.025 (1.005-1.030)
[2020-12-27 14:26] LABS: Chloride 104 mmol/L (98-107); Potassium 4.1 mmoL/L (3.5-5.1); Sodium 140 mmol/L (136-145)
[2020-12-27 14:28] LABS: Blood Urea Nitrogen 4 mg/dl (7-17); Estimated Glomerular Filt Rate 112 ml/min (>60); GFR (African American) 135 ML/MIN (>60)
[2020-12-27 14:29] LABS: Alanine Aminotransferase 10 U/L (12-78); Albumin Level 4.5 g/dl (3.5-5.0); Albumin/Globulin Ratio 1.5 (1.1-1.8); Alkaline Phosphatase 68 U/L (38-126); Anion Gap 14.1 mEq/L (5-15); Aspartate Amino Transferase 18 U/L (14-36); Bilirubin,Total 0.2 mg/dl (0.2-1.3); Carbon Dioxide 26 mmol/L (22.0-30.0); Total Protein,Serum 7.5 g/dl (6.3-8.2)
[2020-12-27 14:30] LABS: Glucose 82 mg/dl (74-100)
[2020-12-27 14:37] LABS: Bilirubin,Urine Negative (Negative)
[2020-12-27 14:47] LABS: 25-OH Vitamin D, Total 21.2 ng/mL (30-100)
[2020-12-27 14:49] LABS: Free Thyroxine Index 2.3 ug/dL (5.93-13.13); T4 (Thyroxine) 8.1 ug/dl (5.53-11.0); Triiodothryronine (T3) Uptake 29 % (23.5-40.5)
[2020-12-27 15:03] LABS: Thyroid Stimulating Hormone 1.21 uIU/mL (0.465-4.68)
[2020-12-27 15:06] LABS: Bacteria,Urine 2+ /lpf; RBC,Urine TNTC #/hpf (0-3); Squamous Epithelial Cell,Urine Occasional #/hpf (0-5); WBC,Urine TNTC #/hpf (0-3)
[2020-12-27 15:20] LABS: Vitamin B12 942 pg/mL (239-931)
== END ==
PROVIDERS: Visit Provider Internal Medicine Adolescent Medicine
DX: K50.811 Crohn's disease of both small and large intestine with rectal bleeding (principal); R53.81 Other malaise; R53.83 Other fatigue
CPT/HCPCS: 36415; 80053; 81001; 82306; 82607; 84436; 84443; 84479; 85025; 87086

== ENCOUNTER → 2021-02-13 10:23 | Outpatient (CLI) | payer OTHER, SELFPAY ==
[2021-02-13 10:28] LABS: Coronavirus 19, PCR Not Detected (NotDetected); Influenza A, PCR Not Detected (NotDetected); Influenza B, PCR Not Detected (NotDetected)
[2021-02-13 10:47] LABS: Basophils # 0.2 K/mm3 (0-0.2); Basophils % 1.2 % (0.1-2.0); Eosinophils # 0.2 K/mm3 (0.0-0.4); Eosinophils % 1.9 % (0.1-12.0); Hematocrit 41.1 % (37.0-47.0); Hemoglobin 13.4 g/dL (12.2-16.2); Lymphocytes # 2.6 K/mm3 (0.7-4.5); Lymphocytes % 20.7 % (10-50); Mean Corpuscular HGB Conc 32.6 g/dL (31.8-35.4); Mean Corpuscular Hemoglobin 32.7 pg (27.0-31.2); Mean Corpuscular Volume 100.4 fl (81-99); Mean Platelet Volume 8.7 fl (7.4-10.4); Monocytes # 0.9 K/mm3 (0.1-1.0); Monocytes % 6.9 % (1.7-9.3); Neutrophils # 8.7 K/mm3 (1.8-7.8); Neutrophils % 69.3 % (37.0-80.0); Platelet Count 318 K/mm3 (142-424); Red Blood Count 4.09 M/mm3 (4.20-5.40); Red Cell Distribution Width 13.6 % (11.5-17.5); White Blood Count 12.6 K/mm3 (4.8-10.8)
[2021-02-13 11:19] LABS: Urine Pregnancy, HCG Qual. Negative (Negative)
[2021-02-13 11:44] LABS: Anion Gap 14.5 mEq/L (5-15); Blood Urea Nitrogen 7 mg/dl (7-17); Calcium 9.2 mg/dl (8.4-10.2); Carbon Dioxide 25 mmol/L (22.0-30.0); Chloride 106 mmol/L (98-107); Estimated Glomerular Filt Rate 138 ml/min (>60); GFR (African American) 167 ML/MIN (>60); Glucose 93 mg/dl (74-100); Potassium 4.5 mmoL/L (3.5-5.1); Sodium 141 mmol/L (136-145)
== END ==
PROVIDERS: Visit Provider Surgery
DX: Z01.812 Encounter for preprocedural laboratory examination (principal); Z11.52 Encounter for screening for COVID-19; L02.415 Cutaneous abscess of right lower limb; L02.91 Cutaneous abscess, unspecified
CPT/HCPCS: 36415; 80048; 81025; 85025; C9803; U0003; U0005

== ENCOUNTER 2021-02-13 10:45 | Day surgery (SDC) | payer OTHER, SELFPAY ==
[2021-02-13] VITALS (11 sets, daily range): BP systolic 120–144; BP diastolic 63–103; PULSE 61–78; RESP 16–18; TEMP 36.8–37; O2SAT 93–99; BMI 31.4
--- NOTE | 2021-02-13 11:57 | HMH.ANESCL ---
[facility] Anesthesia Checklist - Patient Identification Patient Identification: Arm Band - Structural Data Admitted From: Home Planned Operative Procedure/s: I & D right thigh Consent for Planned Operative Procedure(s) Verified: Yes - NPO Status Verified Time NPO: 00:00 - Additional verifications Anesthesia Reactions: No Hx Blood Transfusions: No Blood Transfusion Reaction: No - Airway Assessment C-Spine Mobility Assessed: Yes TMJ Mobility Assessed: Yes Dentition: Good Dentition (Permanent retainer on bottom teeth) - Neurological Assessment Level of Consciousness: Awake Hx Seizures: No Numbness or tingling in extremities: No - Anesthesia Plan Anesthesia Risk discussed: Yes Anesthesia Plan: Verified ASA Class: II Anesthesia Type: General [facility] History I have reviewed the patient's past medical history: Yes Medical History: Reports:: Anxiety, Asthma, Hypertension Denies:: Cancer, Diabetes Mellitus Type 1, Diabetes Mellitus Type 2, Internal Pacemaker, MRSA, Seizures *Have you ever received a pneumonia vaccine?: No *Have you received a flu vaccine this season?: No Other Medical History: Reports: Other. Denies: Blood Transfusion Reaction Anesthesia experience/problems:: None Laterality Cases: Bilateral: Tonsillectomy Other Surgeries: Yes: Appendectomy, Cholecystectomy, , Tubal Ligation, Other. No: Pacemaker Amputation: No Fractures: No - *Social History Last grade of school completed: Some college Smoking Status: Current every day smoker Tobacco Type: cigarettes # Packs/Day (cigarettes): 1 #Yrs smoked (if former smoker): 5 Alcohol Intake: never Alcohol Intake Frequency:: other Substance Use Type: denies use *Occupational Status:: employed Housing: house Household Members: spouse, children *Travel in the last 8 weeks: None - Psychiatric History Pschychiatric History:: Reports:: Anxiety Family Hx:: No significant family history
--- NOTE | 2021-02-13 13:20 | HMH.OPNOTE ---
Date of procedure: 02/13/21 Pre-op Diagnosis:: Soft tissue infection with abscess of the right medial proximal thigh Post-op Diagnosis:: Same Procedure performed:: Patient is a 40-year-old female referred to the office by Dr. Delacruz for right thigh abscess. Patient states that this area has been present for about 4 or 5 days. She did have some transient drainage. It is very tender to her. Of note, she had previously had right breast abscess incision and drainage x2 on 08/25/2020. She had a right thigh abscess incision and drainage on 09/11/2020. She had excision of right thigh hidradenitis on 01/15/2017. She had perineal hidradenitis excision on 06/16/2007. Surgeon:: Angel Edward MD [employer] OPERATOR:: Parish Mosqueda Anesthesia: LMA Estimated blood loss (mL): 5 Clinical Note:: Patient is a 40-year-old female referred to the office by Dr. Dleacruz for right thigh abscess. Patient states that this area has been present for about 4 or 5 days. She did have some transient drainage. It is very tender to her. Of note, she had previously had right breast abscess incision and drainage x2 on 08/25/2020. She had a right thigh abscess incision and drainage on 09/11/2020. She had excision of right thigh hidradenitis on 01/15/2017. She had perineal hidradenitis excision on 06/16/2007. Physical examination revealed on the right medial proximal thigh area she an area of approximately 11 cm erythema and cellulitis. There is some central induration. She has more centrally located area of skin necrosis. After she was seen in the office plan was made for operative and incision and drainage with debridement. Operative findings:: She had limited underlying pus. There was some significant cellulitis and soft tissue infection. There is central superficial tissue necrosis. Operative note:: Patient was taken to the operating room. General anesthesia was induced. She was positioned to allow access to the area. The area was prepped and draped in the standard surgical fashion. Initially a limited incision was made at the area of tissue necrosis. There was limited underlying fluid. Electrocautery was used to excise the necrotic appearing tissues. The underlying fluid was sent for culture. There was not a large amount of pus evacuated however. Wound was thoroughly probed. Wound was irrigated. Local anesthetic was infiltrated. Hemostasis was achieved with electrocautery. Wound was packed with saline moistened gauze and covered with clean dry sterile dressing. Condition: stable Disposition: PACU Specimens:: Debrided tissue Complications:: None immediately apparent
--- NOTE | 2021-02-13 13:27 | HMH.ANESI ---
[facility] Anesthesia Record Part I Intake, IV Amount: 600 Estimated blood loss (mL): 10 Urine output (mL): 0 Blood Pressure: 125/75 SaO2: 93 Pulse Rate: 75 Respiratory Rate: 16 Temperature: 98.4 F Patient is:: Drowsy, Stable Stable to PACU at:: 13:20
--- NOTE | 2021-02-13 16:13 | HMH.ANESII ---
[facility] Anesthesia Record Part II Discharge Time: 14:00 Destination: Surgical Day Care (OP Surgery) PACU nurse assessment reviewed?: Yes Patient Condition:: Good Anesthesia Complications:: None Swallowing reflex intact?: Yes Cyanosis?: No Blood Pressure: 128/74 Pulse Rate: 74 Temperature: 98.6 F Mental Status: Alert & Oriented Pain level:: 0 Nausea and/or vomitting:: None Intake, IV Amount: 0
== END 2021-02-13 14:40 | disposition home or self-care (01) ==
LOC: OR 10:47
PROVIDERS: PCP Internal Medicine Adolescent Medicine; Visit Provider Surgery
PROC: (CPT 10061; principal; 2021-02-13 13:00)
DX: L02.415 Cutaneous abscess of right lower limb (principal); B96.89 Other specified bacterial agents as the cause of diseases classified elsewhere; F41.9 Anxiety disorder, unspecified; J45.909 Unspecified asthma, uncomplicated; I10 Essential (primary) hypertension; Z90.49 Acquired absence of other specified parts of digestive tract; Z72.0 Tobacco use; Z83.3 Family history of diabetes mellitus; Z82.49 Family history of ischemic heart disease and other diseases of the circulatory system; Z80.9 Family history of malignant neoplasm, unspecified; Z88.0 Allergy status to penicillin; Z88.1 Allergy status to other antibiotic agents
CPT/HCPCS: 10061; 87070; 87075; 87077; 87186; 87205; 96374; J2405

== ENCOUNTER → 2021-11-08 15:30 | Outpatient (CLI) | payer OTHER, SELFPAY ==
[2021-11-08 15:34] LABS: MANUAL DIFFERENTIAL MANUAL DIFFERENTIAL (MANUAL DIFF)
[2021-11-08 16:22] LABS: Basophils # 0.2 K/mm3 (0-0.2); Basophils % 2.2 % (0.1-2.0); Eosinophils # 0.4 K/mm3 (0.0-0.4); Eosinophils % 3.8 % (0.1-12.0); Hematocrit 39.8 % (37.0-47.0); Hemoglobin 12.7 g/dL (12.2-16.2); Lymphocytes # 2.4 K/mm3 (0.7-4.5); Lymphocytes % 22.7 % (10-50); Mean Corpuscular HGB Conc 31.9 g/dL (31.8-35.4); Mean Corpuscular Hemoglobin 32.5 pg (27.0-31.2); Mean Corpuscular Volume 101.7 fl (81-99); Mean Platelet Volume 8.8 fl (7.4-10.4); Monocytes # 0.6 K/mm3 (0.1-1.0); Neutrophils # 6.8 K/mm3 (1.8-7.8); Neutrophils % 65.4 % (37.0-80.0); Platelet Count 353 K/mm3 (142-424); Red Blood Count 3.91 M/mm3 (4.20-5.40); Red Cell Distribution Width 13.2 % (11.5-17.5); White Blood Count 10.4 K/mm3 (4.8-10.8)
[2021-11-08 16:56] LABS: Alanine Aminotransferase 16 U/L (12-78); Albumin Level 3.7 g/dl (3.5-5.0); Albumin/Globulin Ratio 1.2 (1.1-1.8); Alkaline Phosphatase 69 U/L (38-126); Anion Gap 9.4 mEq/L (5-15); Aspartate Amino Transferase 26 U/L (14-36); Blood Urea Nitrogen 8 mg/dl (7-17); Carbon Dioxide 31 mmol/L (22.0-30.0); Chloride 104 mmol/L (98-107); Estimated Glomerular Filt Rate 111 ml/min (>60); GFR (African American) 135 ML/MIN (>60); Globulin 3.1 g/dL (1.3-3.2); Glucose 96 mg/dl (74-100); Potassium 4.4 mmoL/L (3.5-5.1); Sodium 140 mmol/L (136-145); Total Protein,Serum 6.8 g/dl (6.3-8.2)
[2021-11-08 17:09] LABS: Bilirubin,Total < 0.1 mg/dl (0.2-1.3)
[2021-11-08 17:26] LABS: Thyroid Stimulating Hormone 1.12 uIU/mL (0.465-4.68)
[2021-11-08 17:30] LABS: Ferritin 35.6 ng/ml (6.24-137)
[2021-11-08 17:43] LABS: Eosinophils % 2 % (0-3); Lymphocytes % 31 % (10-50); Macrocytosis 1+; Monocytes % 3 % (2-9); Neutrophils % 63 % (42-76); Platelet Estimate Normal; Total Cells Counted 100
== END ==
PROVIDERS: PCP Nurse Practitioner Family; Visit Provider Nurse Practitioner Family
DX: R06.02 Shortness of breath (principal); R43.2 Parageusia
CPT/HCPCS: 36415; 80053; 82728; 84443; 85007; 85014; 85018; 85048; 85049

== ENCOUNTER → 2021-11-22 09:04 | Outpatient (CLI) | payer OTHER, SELFPAY | PROVIDERS: PCP Nurse Practitioner Family; Visit Provider Nurse Practitioner Family | DX: R06.02 Shortness of breath (principal); I10 Essential (primary) hypertension | CPT/HCPCS: 93306 ==

== ENCOUNTER 2021-12-31 20:21 | Emergency (ER) | payer OTHER, SELFPAY ==
[2021-12-31 20:23] VITALS: BP 125/85; PULSE 72; RESP 19; TEMP 36.9; O2SAT 97; BMI 30.2
[2021-12-31 20:47] VITALS: BMI 30.2
[2021-12-31 21:02] LABS: Microscopic, Urine URINE MICROSCOPIC (MICROSCOPIC)
[2021-12-31 21:08] LABS: Appearance,Urine CLEAR (Clear); Bilirubin,Urine Negative (Negative); Blood, Urine 1+ (Negative); Color,Urine YELLOW (Yellow); Glucose,Urine (UA) Negative (Negative); Ketones,Urine Negative (Negative); Leukocyte Esterase,Urine TRACE (Negative); Nitrate,Urine Negative (Negative); Protein,Urine Negative (Negative); Urobilinogen,Urine 0.2 EU/dl (0.2)
[2021-12-31 21:10] LABS: Alanine Aminotransferase 25 U/L (12-78); Albumin Level 4.2 g/dl (3.5-5.0); Albumin/Globulin Ratio 1.1 (1.1-1.8); Alkaline Phosphatase 93 U/L (38-126); Anion Gap 10.1 mEq/L (5-15); Aspartate Amino Transferase 29 U/L (14-36); Blood Urea Nitrogen 8 mg/dl (7-17); Calcium 9.1 mg/dl (8.4-10.2); Carbon Dioxide 31 mmol/L (22.0-30.0); Chloride 100 mmol/L (98-107); Creatinine Clearance Estimated 141 mL/min (50-200); Estimated Glomerular Filt Rate 93 ml/min (>60); GFR (African American) 113 ML/MIN (>60); Glucose 123 mg/dl (74-100); Potassium 3.1 mmoL/L (3.5-5.1); Sodium 138 mmol/L (136-145); Total Protein,Serum 8.2 g/dl (6.3-8.2)
[2021-12-31 21:16] LABS: Basophils # 0.2 K/mm3 (0-0.2); Basophils % 1.4 % (0.1-2.0); C-Reactive Protein 18.1 mg/L (0-4); Eosinophils # 0.5 K/mm3 (0.0-0.4); Eosinophils % 3.9 % (0.1-12.0); Hematocrit 42.1 % (37.0-47.0); Hemoglobin 13.3 g/dL (12.2-16.2); Lymphocytes # 3.4 K/mm3 (0.7-4.5); Lymphocytes % 27.5 % (10-50); Mean Corpuscular HGB Conc 31.5 g/dL (31.8-35.4); Mean Corpuscular Hemoglobin 31.7 pg (27.0-31.2); Mean Corpuscular Volume 100.6 fl (81-99); Mean Platelet Volume 8.2 fl (7.4-10.4); Monocytes # 0.7 K/mm3 (0.1-1.0); Monocytes % 5.2 % (1.7-9.3); Neutrophils # 7.7 K/mm3 (1.8-7.8); Neutrophils % 61.9 % (37.0-80.0); Platelet Count 462 K/mm3 (142-424); Red Blood Count 4.18 M/mm3 (4.20-5.40); White Blood Count 12.5 K/mm3 (4.8-10.8)
[2021-12-31 21:24] LABS: Bacteria,Urine 4+ /lpf; WBC,Urine Occasional #/hpf (0-3)
[2021-12-31 21:24] LABS: Bilirubin,Total < 0.1 mg/dl (0.2-1.3)
--- NOTE | 2021-12-31 21:28 | HMH.EDHA ---
ED Disposition Clinical Impression: Migraine Qualifiers: Migraine type: unspecified Status migrainosus presence: without status migrainosus Intractability: not intractable Qualified Code(s): G43.909 - Migraine, unspecified, not intractable, without status migrainosus Disposition: Home, Self-Care Condition on Discharge: Good Instructions: DI for Migraine Additional Instructions: call pcp for follow up Referrals: Owen Mars MD [Primary Care Provider] - - Critical Care Critical Care Time: No Attestation: On 12/31/21, the high probability of a clinically significant, sudden or life threatening deterioration of the following system(s) required my full and direct attention, intervention and personal management. The time I documented below is in addition to time spent performing reported procedures but includes the following listed in this critical care notation. Medical Decision Making - Medical Records Medical records reviewed: Yes: I reviewed the patient's medical records. - [place] Inquiry Pt receiving controlled substance: No Vital Signs: 12/31/21 20:23 Temperature 98.4 F Temperature Source Oral Pulse Rate [Right] 72 Respiratory Rate 19 Blood Pressure [Right Arm] 125/85 Blood Pressure Mean [Right Arm] 98 Blood Pressure Source [Right Arm] Automatic Cuff 02 Sat by Pulse Oximetry 97 Oxygen Delivery Method Room Air - Lab Data Lab results reviewed: Yes: I reviewed the patient's lab results. Lab Results 12/31/21 20:40: C-Reactive Protein 18.1 H, Procalcitonin 0.042 12/31/21 20:40: WBC 12.5 H, RBC 4.18 L, Hgb 13.3, Hct 42.1, MCV 100.6 H, MCH 31.7 H, MCHC 31.5 L, RDW 13.0, Plt Count 462 H, MPV 8.2, Neut % (Auto) 61.9, Lymph % (Auto) 27.5, [place] % (Auto) 5.2, Eos % (Auto) 3.9, Baso % (Auto) 1.4, Neut # (Auto) 7.7, Lymph # (Auto) 3.4, [place] # (Auto) 0.7, Eos # (Auto) 0.5 H, Baso # (Auto) 0.2 12/31/21 20:40: Sodium 138, Potassium 3.1 L, Chloride 100, Carbon Dioxide 31 H, Anion Gap 10.1, BUN 8, Creatinine 0.70, Estimated Creat Clear 141, Estimated GFR 93, Est GFR ( Amer) 113, Glucose 123 H, Calcium 9.1, Total Bilirubin < 0.1 L, AST 29, ALT 25, Alkaline Phosphatase 93, Total Protein 8.2, Albumin 4.2, Globulin 4.0 H, Albumin/Globulin Ratio 1.1 12/31/21 20:50: Urine Color Yellow, Urine Appearance Clear, Urine pH 6.0, Ur Specific [place] 1.020, Urine Protein Negative, Urine Glucose (UA) Negative, Urine Ketones Negative, Urine Blood 1+, Urine Nitrate Negative, Urine Bilirubin Negative, Urine Urobilinogen 0.2, Ur Leukocyte Esterase Trace, Urine RBC 3-5, Urine WBC Occasional, Ur Squamous Epith Cells 10-20, Urine Bacteria 4+ Result diagrams: 12/31/21 20:40 12/31/21 20:40 Orders (Tests/Meds): ED MEDICATIONS Generic Name Dose Route Start Last Admin Trade Name Freq PRN Reason Stop Dose Admin Sodium Chloride 1,000 mls @ 999 mls/hr 12/31/21 21:00 12/31/21 21:38 Sod Chlor 0.9% 1000ml Bag IV 12/31/21 22:00 999 mls/hr .Q1H1M NOA Administration Sodium Chloride 10 ml 12/31/21 20:53 Sodium Chloride 0.9% 10ml Flush Syringe IV 01/01/22 08:54 NEEDED PRN Maintain IV Site Discontinued Medications Generic Name Dose Route Start Last Admin Trade Name Freq PRN Reason Stop Dose Admin Diphenhydramine HCl 50 mg 12/31/21 20:53 12/31/21 21:38 Diphenhydramine 50mg/Ml Vial IV 12/31/21 20:54 50 mg ONCE ONE Administration Ketorolac Tromethamine 30 mg 12/31/21 20:53 12/31/21 21:38 Ketorolac 30mg/Ml Vial IV 12/31/21 20:54 30 mg ONCE ONE Administration Metoclopramide HCl 10 mg 12/31/21 20:53 12/31/21 21:38 Metoclopramide Hcl 10mg/2ml Vial IVP 12/31/21 20:54 10 mg ONCE ONE Administration Promethazine HCl 25 mg 12/31/21 20:53 12/31/21 21:38 Promethazine Hcl 25mg/Ml 1ml Vial IV 12/31/21 20:54 25 mg ONCE ONE Administration Sodium Chloride 25 ml 12/31/21 20:53 12/31/21 21:38 Sodium Chloride 0.9% 25ml Bag IV 12/31/21 20:54 25 ml ONCE ONE Administra
[2021-12-31 21:29] LABS: Procalcitonin 0.042 ng/mL (0.0-2.0)
--- NOTE | 2021-12-31 21:35 | PC.NURSE ---
[employer] called this RN back and stated after s/w a college regarding this case, they do not need patient to consent to transfer. The guardianship is giving consent for PD transport. s/w Yudi Melo
--- NOTE | 2021-12-31 21:39 | PC.NURSE ---
recheck pt condition, stated headache is better. 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 Nausea much improved
[2021-12-31 21:57] LABS: Erythrocyte Sedimentation Rate 53 mm/hr (0-20)
[2021-12-31 22:09] LABS: Coronavirus 19, PCR Not Detected (NotDetected); Influenza A, PCR Not Detected (NotDetected); Influenza B, PCR Not Detected (NotDetected)
[2021-12-31 22:13] VITALS: BP 129/75; PULSE 87; RESP 20; TEMP 36.7; O2SAT 97
== END 2021-12-31 22:31 | disposition home or self-care (01) ==
PROVIDERS: Emergency Provider Emergency Medicine; PCP Internal Medicine Adolescent Medicine
DX: G43.909 Migraine, unspecified, not intractable, without status migrainosus (principal)
CPT/HCPCS: 80053; 81001; 84145; 85025; 85651; 86140; 87086; 96361; 96374; 96375; 99283; C9803; U0003; U0005

== ENCOUNTER 2022-02-17 15:27 | Emergency (ER) | payer OTHER, SELFPAY ==
--- NOTE | 2022-02-17 15:34 | XR_ITS ---
PROCEDURE INFORMATION: Exam: XR Left Foot Exam date and time: 02/17/2022 3:34 PM Age: 41 years old Clinical indication: Foot; Left; Patient HX: Fall with pain. Shielded. TECHNIQUE: Imaging protocol: Radiologic exam of the Left foot. Views: 3 or more views. COMPARISON: CR XR ANKLE LT MIN 3V 02/17/2022 3:33 PM FINDINGS: Bones/joints: There is no evidence of acute fracture.There is no evidence of malalignment or dislocation. Soft tissues: Normal. IMPRESSION: There is no evidence of acute fracture.There is no evidence of malalignment or dislocation.
--- NOTE | 2022-02-17 15:34 | XR_ITS ---
PROCEDURE INFORMATION: Exam: XR Left Ankle Exam date and time: 02/17/2022 3:33 PM Age: 41 years old Clinical indication: Ankle; Left; Patient HX: Fall with pain, shielded. TECHNIQUE: Imaging protocol: Radiologic exam of the Left ankle. Views: 3 or more views. COMPARISON: No relevant prior studies available. FINDINGS: Bones/joints: Lucency in the distal aspect of the fibula consistent with nondisplaced fracture.. Soft tissues: Lateral malleolar soft tissue swelling IMPRESSION: 1. Lucency in the distal aspect of the fibula consistent with nondisplaced fracture.. 2. Lateral malleolar soft tissue swelling.
[2022-02-17 15:45] VITALS: BP 143/90; PULSE 72; RESP 16; TEMP 36.8; O2SAT 98; BMI 30.7
--- NOTE | 2022-02-17 15:55 | EXP.UTC ---
Discharge Plan Disposition Patient Disposition: Home, Self-Care Condition: Good Prescriptions Prescriptions: No Action atenolol 100 mg tablet 100 mg PO DAILY potassium chloride 10 mEq capsule, extended release 10 meq PO DAILY fluticasone propionate 50 mcg/actuation spray,suspension 1 spray INTRANASAL DAILY albuterol sulfate [ProAir HFA] 90 mcg/actuation HFA aerosol inhaler 1 - 2 puff INHALATION Q6HP PRN (Reason: shortness breath, wheeze) ergocalciferol (vitamin D2) 1,250 mcg (50,000 unit) capsule 1,250 mcg PO WEEKLY omeprazole 20 capsule,delayed release(DR/EC) 20 mg PO DAILY folic acid 1 tablet 1 mg PO DAILY montelukast 10 MG tablet 10 mg PO PM escitalopram oxalate 20 MG tablet 20 mg PO DAILY Referrals Follow up/Referrals: Owen Mars MD [Primary Care Provider] - See instructions Adrien Hinds JR, MD [Physician] - See instructions Activity Restrictions/Add. Instructions Additional Instructions/Restrictions: *RICE, Rest the extremity, Ice 15-20 minutes 3-4 times daily, Compress- wear the samantha wrap as discussed as much as possible to help reduce swelling and pain, Elevate the extremity when at rest *Walking boot is for support and help control swelling, use it except in the shower. Be sure that is not to tight but not to loose either *Elevate when resting? *Ibuprofen 600-800mg every 6-8 hours as needed for pain an inflammation. If need something more can take Tylenol in between doses of Ibuprofen to help Immediately follow up with your family doctor for new or worsening of symptoms, or no noticeable improvement over the next 3-5 days Call Orthopedic office tomorrow for appointment on Friday with Dr Hinds Clinical Impressions Clinical Impression: Fibula fracture Instructions Patient Instructions: How To Perform RICE (Rest, Ice, Compress, Elevate), How to Use Crutches, How to Use a Walking Boot Discharge ED Provider[place]um[place] [facility] [place] General Stated complaint: AO10/@1200 LT ankle inj Time Seen by Provider: 02/17/22 15:55 History of Present Illness Provider Complaint: Patient states that she was standing earlier and not sure if she may have moved wrong or something but her left ankle give out and she fell States that she has been having pain and swelling in her ankle ever since and hurts when she tries to move it or put weight on it so she came in to get it checked out Related Data Home Medications Medication Instructions Recorded Confirmed folic acid 1 mg tablet 1 mg PO DAILY Supplement 05/27/19 12/31/21 montelukast 10 mg tablet 10 mg PO PM Allergy symptoms 05/27/19 12/31/21 omeprazole 20 mg capsule,delayed 20 mg PO DAILY Reflux/Acid reflux 05/27/19 12/31/21 release atenolol 100 mg tablet 100 mg PO DAILY High blood pressure 11/18/19 12/31/21 potassium chloride 10 mEq 10 meq PO DAILY Supplement 11/18/19 12/31/21 capsule,extended release escitalopram oxalate 20 mg tablet 20 mg PO DAILY Depression 08/24/20 12/31/21 albuterol sulfate 90 mcg/actuation 1 - 2 puff INHALATION Q6HP PRN 08/22/21 12/31/21 aerosol inhaler (ProAir HFA) shortness breath, wheeze ergocalciferol (vitamin D2) 1,250 1,250 mcg PO WEEKLY Supplement 08/22/21 12/31/21 mcg (50,000 unit) capsule fluticasone propionate 50 1 spray INTRANASAL DAILY Allergy 08/22/21 12/31/21 mcg/actuation nasal symptoms spray,suspension Allergies Allergy/AdvReac Type Severity Reaction Status Date / Time Penicillins [PENICILLINS] Allergy Unknown Verified 08/22/21 14:50 tetracycline [TETRACYCLINE] Allergy Unknown Verified 08/22/21 14:50 [facility] Medical History (Updated 02/17/22 @ 16:30 by Fadumo Hudson APRN) Anemia Anxiety Asthma Cancer Hypertension Surgical History (Updated 02/17/22 @ 15:58 by Rose Pitts RN) History of appendectomy History of section History of cholecystectomy History of tonsillectomy History of tympanostomy tube placem
[2022-02-17 16:31] VITALS: BP 143/90; PULSE 72; RESP 16; TEMP 36.8; O2SAT 98
== END 2022-02-17 16:37 | disposition home or self-care (01) ==
PROVIDERS: Emergency Provider Nurse Practitioner; PCP Internal Medicine Adolescent Medicine
DX: M84.464A Pathological fracture, left fibula, initial encounter for fracture (principal); Z79.899 Other long term (current) drug therapy; Z88.0 Allergy status to penicillin; Z88.1 Allergy status to other antibiotic agents; Z85.9 Personal history of malignant neoplasm, unspecified; D64.9 Anemia, unspecified; F41.9 Anxiety disorder, unspecified; J45.909 Unspecified asthma, uncomplicated; I10 Essential (primary) hypertension
CPT/HCPCS: 73610; 73630; 99212; G0463

== ENCOUNTER → 2022-02-23 10:49 | Outpatient (CLI) | payer OTHER, SELFPAY | PROVIDERS: PCP Internal Medicine Adolescent Medicine; Visit Provider Nurse Practitioner Family | DX: L03.112 Cellulitis of left axilla (principal); L73.2 Hidradenitis suppurativa ==

== ENCOUNTER → 2022-03-19 09:31 | Outpatient (CLI) | payer OTHER, SELFPAY ==
--- NOTE | 2022-03-19 09:38 | XR_ITS ---
FINAL REPORT CLINICAL HISTORY: fracture follow-up COMPARISON: Ankle radiographs dated February 17, 2022 FINDINGS: LEFT TIBIA FIBULA Two views were obtained. There is a persistent nondisplaced fracture of the inferior tip of the lateral malleolus. No other fracture is identified. The joint spaces are intact. There is no soft tissue abnormality. IMPRESSION: Persistent nondisplaced fracture of the anterior tip of the lateral malleolus. Reviewed, Interpreted and Dictated by Angel Hoang III, MD Transcribed by Gisela Warren Authenticated and [facility]
== END ==
PROVIDERS: PCP Internal Medicine Adolescent Medicine; Visit Provider Orthopaedic Surgery
DX: S82.832A Other fracture of upper and lower end of left fibula, initial encounter for closed fracture (principal)
CPT/HCPCS: 73590

== ENCOUNTER 2022-07-10 12:19 | Emergency (ER) | payer OTHER, SELFPAY ==
[2022-07-10 12:21] VITALS: BP 155/87; PULSE 78; RESP 17; TEMP 36.8; O2SAT 97; BMI 32.9
[2022-07-10 13:00] VITALS: BP 137/103; PULSE 84; O2SAT 96
[2022-07-10 13:18] LABS: Basophils # 0.2 K/mm3 (0-0.2); Basophils % 1.1 % (0.1-2.0); Eosinophils # 0.8 K/mm3 (0.0-0.4); Eosinophils % 5.6 % (0.1-12.0); Hematocrit 39.2 % (37.0-47.0); Hemoglobin 12.8 g/dL (12.2-16.2); Lymphocytes % 21.9 % (10-50); Mean Corpuscular HGB Conc 32.7 g/dL (31.8-35.4); Mean Corpuscular Hemoglobin 31.9 pg (27.0-31.2); Mean Corpuscular Volume 97.6 fl (81-99); Mean Platelet Volume 7.8 fl (7.4-10.4); Monocytes # 0.8 K/mm3 (0.1-1.0); Monocytes % 5.9 % (1.7-9.3); Neutrophils # 8.9 K/mm3 (1.8-7.8); Neutrophils % 65.4 % (37.0-80.0); Platelet Count 507 K/mm3 (142-424); Red Blood Count 4.02 M/mm3 (4.20-5.40); Red Cell Distribution Width 12.9 % (11.5-17.5); White Blood Count 13.6 K/mm3 (4.8-10.8)
[2022-07-10 13:26] LABS: Anion Gap 9.7 mEq/L (5-15); Blood Urea Nitrogen 10 mg/dl (7-17); Carbon Dioxide 25 mmol/L (22.0-30.0); Chloride 105 mmol/L (98-107); Creatinine Clearance Estimated 151 mL/min (50-200); Estimated Glomerular Filt Rate 93 ml/min (>60); GFR (African American) 112 ML/MIN (>60); Glucose 138 mg/dl (74-100); Potassium 3.7 mmoL/L (3.5-5.1); Sodium 136 mmol/L (136-145)
[2022-07-10 13:43] LABS: Procalcitonin 0.047 ng/mL (0.0-2.0)
[2022-07-10 14:00] VITALS: PULSE 72; O2SAT 95
--- NOTE | 2022-07-10 14:32 | HMH.EDGENADL ---
Discharge Plan Disposition Patient Disposition: Home, Self-Care Condition: Good Chief Complaint: Skin/Abscess/Foreign Body Prescriptions Prescriptions: No Action atenolol 100 mg tablet 100 mg PO DAILY potassium chloride 10 mEq capsule, extended release 10 meq PO DAILY fluticasone propionate 50 mcg/actuation spray,suspension 1 spray intranasal DAILY albuterol sulfate [ProAir HFA] 90 mcg/actuation HFA aerosol inhaler 1 - 2 puff inhalation Q6HP PRN (Reason: shortness breath, wheeze) ergocalciferol (vitamin D2) 1,250 mcg (50,000 unit) capsule 1,250 mcg PO WEEKLY omeprazole 20 capsule,delayed release(DR/EC) 20 mg PO DAILY folic acid 1 tablet 1 mg PO DAILY montelukast 10 MG tablet 10 mg PO PM escitalopram oxalate 20 MG tablet 20 mg PO DAILY oxycodone 5 mg tablet 5 mg PO TID PRN (Reason: Pain) Referrals Follow up/Referrals: Owen Mars MD [Primary Care Provider] - See instructions Activity Restrictions/Add. Instructions Additional Instructions/Restrictions: Continue current wound management/dressing changes. Follow-up with surgery clinic at [facility] on Friday as scheduled. Call surgery service at [facility] if any problems before then such as recurrence of fever. Clinical Impressions Clinical Impression: Fever Discharge ED Provider: Chris Ruiz General Adult HPI General Chief complaint: Skin/Abscess/Foreign Body Stated complaint: Post op, Fever, nausea [id number] Time Seen by Provider: 07/10/22 14:20 Mode of Arrival: Ambulatory Source of Information: Patient Limitations: No Limitations Description of Symptoms (Recalled from ER Triage Doc. by RN): 42 F presents s/p bilateral axillary excisions r/t hidradenitis on 07/[address] Rosario. Patient reports she noticed an odor and has a green film on the dressings when she changes them. Fever of 101 at home today which she states she treated with a 5mg Oxycodone. She was not prescribed antibiotics per her and there was nothing on her discharge paperwork. History of Present Illness HPI narrative: Patient had surgery 1 week ago at [facility] for hidradenitis suppurativa, both axillary areas. Last night she noticed an odor when she was getting her dressings changed. She says she has some increased pain in the incisions. She had a fever up to 101 degrees this morning. She called [facility] surgery and they advised her to come to the emergency department. She states the dressings are drying up, not any significant drainage. Denies URI symptoms. Denies urinary symptoms. Denies vomiting or diarrhea or any other symptoms. Related Data Home Medications Medication Instructions Recorded Confirmed folic acid 1 mg tablet 1 mg PO DAILY Supplement 05/27/19 07/10/22 montelukast 10 mg tablet 10 mg PO PM Allergy symptoms 05/27/19 07/10/22 omeprazole 20 mg capsule,delayed 20 mg PO DAILY Reflux/Acid reflux 05/27/19 07/10/22 release atenolol 100 mg tablet 100 mg PO DAILY High blood pressure 11/18/19 07/10/22 potassium chloride 10 mEq 10 meq PO DAILY Supplement 11/18/19 07/10/22 capsule,extended release escitalopram oxalate 20 mg tablet 20 mg PO DAILY Depression 08/24/20 07/10/22 albuterol sulfate 90 mcg/actuation 1 - 2 puff inhalation Q6HP PRN 08/22/21 07/10/22 aerosol inhaler (ProAir HFA) shortness breath, wheeze ergocalciferol (vitamin D2) 1,250 1,250 mcg PO WEEKLY Supplement 08/22/21 07/10/22 mcg (50,000 unit) capsule fluticasone propionate 50 1 spray intranasal DAILY Allergy 08/22/21 07/10/22 mcg/actuation nasal symptoms spray,suspension oxycodone 5 mg tablet 5 mg PO TID PRN Pain 07/10/22 07/10/22 Allergies Allergy/AdvReac Type Severity Reaction Status Date / Time Penicillins [PENICILLINS] Allergy Unknown Verified 04/25/22 10:59 tetracycline [TETRACYCLINE] Allergy Unknown Verified 04/25/22 10:59 [facility] Disclaimer: The info
--- NOTE | 2022-07-10 14:36 | XR_ITS ---
FINAL REPORT CLINICAL HISTORY: fever COMPARISON: 01/06/2020 FINDINGS: TWO-VIEW CHEST The heart size is normal. The mediastinum is normal. The lungs are clear. There is no pneumothorax. The osseous structures demonstrate rightward curvature. IMPRESSION: No acute cardiopulmonary process. Reviewed, Interpreted and Dictated by Angel Hoang III, MD Transcribed by Sophia Mas Authenticated and [facility]
[2022-07-10 14:54] LABS: Microscopic, Urine URINE MICROSCOPIC (MICROSCOPIC)
[2022-07-10 14:57] LABS: Appearance,Urine CLEAR (Clear); Blood, Urine 1+ (Negative); Color,Urine YELLOW (Yellow); Glucose,Urine (UA) Negative (Negative); Ketones,Urine Negative (Negative); Leukocyte Esterase,Urine Negative (Negative); Nitrate,Urine Negative (Negative); PH,Urine 5.5 (5.0-8.5); Protein,Urine Negative (Negative); Specific Gravity, Urine >= 1.030 (1.005-1.030); Urobilinogen,Urine 0.2 EU/dl (0.2)
[2022-07-10 14:59] LABS: Bilirubin,Urine Negative (Negative)
[2022-07-10 15:00] VITALS: PULSE 72; O2SAT 95
[2022-07-10 15:14] LABS: Coronavirus 19, PCR Not Detected (NotDetected); Influenza A, PCR Not Detected (NotDetected); Influenza B, PCR Not Detected (NotDetected)
[2022-07-10 15:30] VITALS: PULSE 69; O2SAT 98
[2022-07-10 15:34] LABS: Bacteria,Urine Trace /lpf; Squamous Epithelial Cell,Urine 20-50 #/hpf (0-5); WBC,Urine Occasional #/hpf (0-3)
--- NOTE | 2022-07-10 16:47 | PC.NURSE ---
contacting [facility] for consult per ER MD request
--- NOTE | 2022-07-10 16:55 | PC.NURSE ---
Wet to dry dressings removed at beginning of visit to visualize wounds. Wound beds were healing well without drainage. Wet to dry dressings replaced and patient tolerated well
--- NOTE | 2022-07-10 17:10 | PC.NURSE ---
waiting marketing communications associate back from [facility]
[2022-07-10 17:35] VITALS: BP 133/86; PULSE 73; RESP 17; TEMP 36.8; O2SAT 97
== END 2022-07-10 17:42 | disposition home or self-care (01) ==
PROVIDERS: Emergency Provider Emergency Medicine; PCP Internal Medicine Adolescent Medicine
DX: R50.82 Postprocedural fever (principal); D64.9 Anemia, unspecified; F41.9 Anxiety disorder, unspecified; J45.909 Unspecified asthma, uncomplicated; I10 Essential (primary) hypertension; Z85.9 Personal history of malignant neoplasm, unspecified; Z90.49 Acquired absence of other specified parts of digestive tract; Z20.822 Contact with and (suspected) exposure to COVID-19
CPT/HCPCS: 71046; 80048; 81001; 83605; 84145; 85025; 87040; 87077; 87186; 96360; 99285; C9803; U0003; U0005

== ENCOUNTER 2022-10-30 05:50 | Inpatient (IN) | payer OTHER, SELFPAY ==
[2022-10-30] VITALS (24 sets, daily range): BP systolic 94–132; BP diastolic 52–98; PULSE 60–81; RESP 16–18; TEMP 36.4–37.1; O2SAT 92–98; BMI 33.3; BMI 32.9
[2022-10-30 06:21] LABS: Basophils # 0.1 K/mm3 (0-0.2); Basophils % 0.6 % (0.1-2.0); Eosinophils # 0.5 K/mm3 (0.0-0.4); Eosinophils % 3.2 % (0.1-12.0); Hematocrit 38.9 % (37.0-47.0); Hemoglobin 12.3 g/dL (12.2-16.2); Lymphocytes # 3.8 K/mm3 (0.7-4.5); Lymphocytes % 26.7 % (10-50); Mean Corpuscular HGB Conc 31.6 g/dL (31.8-35.4); Mean Corpuscular Hemoglobin 30.4 pg (27.0-31.2); Mean Corpuscular Volume 96.1 fl (81-99); Mean Platelet Volume 7.9 fl (7.4-10.4); Monocytes # 0.7 K/mm3 (0.1-1.0); Monocytes % 5.3 % (1.7-9.3); Neutrophils # 9.1 K/mm3 (1.8-7.8); Neutrophils % 64.1 % (37.0-80.0); Platelet Count 487 K/mm3 (142-424); Red Blood Count 4.05 M/mm3 (4.20-5.40); Red Cell Distribution Width 12.8 % (11.5-17.5); White Blood Count 14.1 K/mm3 (4.8-10.8)
[2022-10-30 06:26] LABS: Alanine Aminotransferase 30 U/L (12-78); Albumin Level 4.5 g/dl (3.5-5.0); Alkaline Phosphatase 103 U/L (38-126); Anion Gap 16.7 mEq/L (5-15); Aspartate Amino Transferase 34 U/L (14-36); Bilirubin,Total 0.3 mg/dl (0.2-1.3); Blood Urea Nitrogen 12 mg/dl (7-17); Calcium 8.8 mg/dl (8.4-10.2); Carbon Dioxide 27 mmol/L (22.0-30.0); Chloride 100 mmol/L (98-107); Creatinine Clearance Estimated 119 mL/min (50-200); Estimated Glomerular Filt Rate 69 ml/min (>60); GFR (African American) 84 ML/MIN (>60); Globulin 4.3 g/dL (1.3-3.2); Glucose 107 mg/dl (74-100); Potassium 3.7 mmoL/L (3.5-5.1); Sodium 140 mmol/L (136-145); Total Protein,Serum 8.8 g/dl (6.3-8.2)
[2022-10-30 06:31] LABS: Lactic Acid 1.9 mmol/L (0.7-2.1)
[2022-10-30 06:32] LABS: C-Reactive Protein 34.3 mg/L (0-4)
--- NOTE | 2022-10-30 06:43 | HMH.EDSKAF ---
Discharge Plan Disposition Patient Disposition: Admitted Chief Complaint: Skin/Abscess/Foreign Body Prescriptions Prescriptions: No Action atenolol 100 mg tablet 100 mg PO DAILY potassium chloride 10 mEq capsule, extended release 10 meq PO DAILY fluticasone propionate 50 mcg/actuation spray,suspension 1 spray intranasal DAILY albuterol sulfate [ProAir HFA] 90 mcg/actuation HFA aerosol inhaler 1 - 2 puff inhalation Q6HP PRN (Reason: shortness breath, wheeze) ergocalciferol (vitamin D2) 1,250 mcg (50,000 unit) capsule 1,250 mcg PO WEEKLY omeprazole 20 capsule,delayed release(DR/EC) 20 mg PO DAILY folic acid 1 tablet 1 mg PO DAILY montelukast 10 MG tablet 10 mg PO PM escitalopram oxalate 20 MG tablet 20 mg PO DAILY oxycodone 5 mg tablet 5 mg PO TID PRN (Reason: Pain) Referrals Follow up/Referrals: Owen Mars MD [Primary Care Provider] - See instructions Clinical Impressions Clinical Impression: Abscess of skin or subcutaneous tissue, SIRS (systemic inflammatory response syndrome) Instructions Patient Instructions: DI for Skin Abscess Discharge ED Provider: Rylie (ED)José Skin/Abscess/FB HPI General Chief complaint: Skin/Abscess/Foreign Body Stated complaint: Boil on R inner thigh Time Seen by Provider: 10/30/22 06:10 Mode of Arrival: Ambulatory Source of Information: Patient and Medical Record Limitations: No Limitations Description of Symptoms (Recalled from ER Triage Doc. by RN): Pt states she has a right inner thigh abscess that appeared 2 days ago and has worsened. History of Present Illness HPI narrative: over the last 2 days has abscess rt thigh - hx of hidradenitis complaint: abscess/boil Onset (ago): day(s) Location: RLE Severity: moderate Associated symptoms: denies other symptoms Treatments prior to arrival: none Related Data Home Medications Medication Instructions Recorded Confirmed folic acid 1 mg tablet 1 mg PO DAILY Supplement 05/27/19 07/10/22 montelukast 10 mg tablet 10 mg PO PM Allergy symptoms 05/27/19 07/10/22 omeprazole 20 mg capsule,delayed 20 mg PO DAILY Reflux/Acid reflux 05/27/19 07/10/22 release atenolol 100 mg tablet 100 mg PO DAILY High blood pressure 11/18/19 07/10/22 potassium chloride 10 mEq 10 meq PO DAILY Supplement 11/18/19 07/10/22 capsule,extended release escitalopram oxalate 20 mg tablet 20 mg PO DAILY Depression 08/24/20 07/10/22 albuterol sulfate 90 mcg/actuation 1 - 2 puff inhalation Q6HP PRN 08/22/21 07/10/22 aerosol inhaler (ProAir HFA) shortness breath, wheeze ergocalciferol (vitamin D2) 1,250 1,250 mcg PO WEEKLY Supplement 08/22/21 07/10/22 mcg (50,000 unit) capsule fluticasone propionate 50 1 spray intranasal DAILY Allergy 08/22/21 07/10/22 mcg/actuation nasal symptoms spray,suspension oxycodone 5 mg tablet 5 mg PO TID PRN Pain 07/10/22 07/10/22 Allergies Allergy/AdvReac Type Severity Reaction Status Date / Time Penicillins [PENICILLINS] Allergy Unknown Verified 04/25/22 10:59 tetracycline [TETRACYCLINE] Allergy Unknown Verified 04/25/22 10:59 [facility] Disclaimer: The information contained in this section may have been updated after the patient was seen, as this information can be updated by other users. Medical History Anemia Anxiety Asthma Cancer Hypertension Surgical History History of appendectomy History of section History of cholecystectomy History of tonsillectomy History of tympanostomy tube placement Social History Smoking Status: Never smoker second hand exposure: Yes alcohol intake: never substance use type: denies use current occupational status: employed Travel in the last 8 weeks: None household members: spouse and children
--- NOTE | 2022-10-30 06:47 | PC.NURSE ---
paged dr deleon @ this time
[2022-10-30 06:49] LABS: Procalcitonin 0.039 ng/mL (0.0-2.0)
--- NOTE | 2022-10-30 06:59 | PC.NURSE ---
spoke with Hernandez from pharmacy on vanc dosing
[2022-10-30 07:02] LABS: Erythrocyte Sedimentation Rate 52 mm/hr (0-20)
[2022-10-30 07:11] LABS: Coronavirus 19, PCR Not Detected (NotDetected); Influenza A, PCR Not Detected (NotDetected); Influenza B, PCR Not Detected (NotDetected)
--- NOTE | 2022-10-30 07:32 | PC.NURSE ---
report given to COLBY Oneill
[2022-10-30 07:34] LABS: HCG Qualitative, Serum Negative (Negative)
--- NOTE | 2022-10-30 07:47 | PC.NURSE ---
arrived to floor by w/c from ED
--- NOTE | 2022-10-30 08:08 | EXP.HP ---
History of Present Illness *Admission Date: 10/30/22 *Reason for visit:: Right thigh swelling and pain *History of present illness: 42-year-old female with history of axillary hidradenitis suppurativa and history of multiple MRSA infections who has followed with surgical service here several times who came to the emergency department with 48 hours of swollen and redness in the right upper medial thigh area. In the ER was found to have a significant boil with fluctuance. No fever, no white count elevation. Started with vancomycin and admitted for surgical consultation. [facility] Disclaimer: The information contained in this section may have been updated after the patient was seen, as this information can be updated by other users. Medical History Anemia Anxiety Asthma Cancer Hypertension Surgical History History of appendectomy History of section History of cholecystectomy History of tonsillectomy History of tympanostomy tube placement Social History Smoking Status: Never smoker second hand exposure: Yes alcohol intake: never substance use type: denies use current occupational status: employed Travel in the last 8 weeks: None household members: spouse and children housing: house caffeine: Yes Meds Home Medications and Allergies Home Medications Medication Instructions Recorded Confirmed Type folic acid 1 mg tablet 1 mg PO DAILY Supplement 05/27/19 07/10/22 History montelukast 10 mg tablet 10 mg PO PM Allergy symptoms 05/27/19 07/10/22 History omeprazole 20 mg capsule,delayed 20 mg PO DAILY Reflux/Acid reflux 05/27/19 07/10/22 History release atenolol 100 mg tablet 100 mg PO DAILY High blood pressure 11/18/19 07/10/22 History potassium chloride 10 mEq 10 meq PO DAILY Supplement 11/18/19 07/10/22 History capsule,extended release escitalopram oxalate 20 mg tablet 20 mg PO DAILY Depression 08/24/20 07/10/22 History albuterol sulfate 90 mcg/actuation 1 - 2 puff inhalation Q6HP PRN 08/22/21 07/10/22 History aerosol inhaler (ProAir HFA) shortness breath, wheeze ergocalciferol (vitamin D2) 1,250 1,250 mcg PO WEEKLY Supplement 08/22/21 07/10/22 History mcg (50,000 unit) capsule fluticasone propionate 50 1 spray intranasal DAILY Allergy 08/22/21 07/10/22 History mcg/actuation nasal symptoms spray,suspension oxycodone 5 mg tablet 5 mg PO TID PRN Pain 07/10/22 07/10/22 History New Prescriptions to Start Prescriptions: Allergies Allergy/AdvReac Type Severity Reaction Status Date / Time Penicillins [PENICILLINS] Allergy Unknown Verified 04/25/22 10:59 tetracycline [TETRACYCLINE] Allergy Unknown Verified 04/25/22 10:59 Exam Data for Last 24 hours Vital signs and Labs for Last 24 Hours: Temp Pulse Resp BP Pulse Ox 98.3 F 66 16 94/55 L 96 10/30/22 07:50 10/30/22 07:50 10/30/22 07:50 10/30/22 07:50 10/30/22 07:50 Laboratory Results - last 24 hr 10/30/22 06:05: WBC 14.1 H, RBC 4.05 L, Hgb 12.3, Hct 38.9, MCV 96.1, MCH 30.4, MCHC 31.6 L, RDW 12.8, Plt Count 487 H, MPV 7.9, Neut % (Auto) 64.1, Lymph % (Auto) 26.7, [place] % (Auto) 5.3, Eos % (Auto) 3.2, Baso % (Auto) 0.6, Neut # (Auto) 9.1 H, Lymph # (Auto) 3.8, [place] # (Auto) 0.7, Eos # (Auto) 0.5 H, Baso # (Auto) 0.1, ESR 52 H 10/30/22 06:05: Sodium 140, Potassium 3.7, Chloride 100, Carbon Dioxide 27, Anion Gap 16.7 H, BUN 12, Creatinine 0.90, Estimated Creat Clear 119, Estimated GFR 69, Est GFR ( Amer) 84, Glucose 107 H, Calcium 8.8, Total Bilirubin 0.3, AST 34, ALT 30, Alkaline Phosphatase 103, C-Reactive Protein 34.3 H, Total Protein 8.8 H, Albumin 4.5, Globulin 4.3 H, Albumin/Globulin Ratio 1.0 L, Procalcitonin 0.039 10/30/22 06:05: Lactate 1.9 10/30/22 06:05: Serum HCG, Qual Negative 10/30/22 07:07: SARS-CoV-2 (PCR)
--- NOTE | 2022-10-30 08:23 | EXP.SURG.CON ---
History of Present Illness *Admission Date: 10/30/22 *History of present illness: Acidosis patient is a very pleasant 42-year-old female who had a history of multiple MRSA infections and hidradenitis. I had previously performed several incision and drainage of various soft tissue infections. Several months ago she had actually undergone extensive bilateral axillary hidradenitis surgery with plastic surgery at [facility] and is still healing from this. Most recently she had developed progressively tender swelling in the right medial proximal thigh over 48 hours and presented to the emergency department this morning. She was admitted for inpatient management and surgical consultation was obtained. [facility] Disclaimer: The information contained in this section may have been updated after the patient was seen, as this information can be updated by other users. Medical History Anemia Anxiety Asthma Cancer Hypertension Surgical History History of appendectomy History of section History of cholecystectomy History of tonsillectomy History of tympanostomy tube placement Social History Smoking Status: Never smoker second hand exposure: Yes alcohol intake: never substance use type: denies use current occupational status: employed Travel in the last 8 weeks: None household members: spouse and children housing: house caffeine: Yes Meds Home Medications and Allergies Home Medications Medication Instructions Recorded Confirmed Type folic acid 1 mg tablet 1 mg PO DAILY Supplement 05/27/19 07/10/22 History montelukast 10 mg tablet 10 mg PO PM Allergy symptoms 05/27/19 07/10/22 History omeprazole 20 mg capsule,delayed 20 mg PO DAILY Reflux/Acid reflux 05/27/19 07/10/22 History release atenolol 100 mg tablet 100 mg PO DAILY High blood pressure 11/18/19 07/10/22 History potassium chloride 10 mEq 10 meq PO DAILY Supplement 11/18/19 07/10/22 History capsule,extended release escitalopram oxalate 20 mg tablet 20 mg PO DAILY Depression 08/24/20 07/10/22 History albuterol sulfate 90 mcg/actuation 1 - 2 puff inhalation Q6HP PRN 08/22/21 07/10/22 History aerosol inhaler (ProAir HFA) shortness breath, wheeze ergocalciferol (vitamin D2) 1,250 1,250 mcg PO WEEKLY Supplement 08/22/21 07/10/22 History mcg (50,000 unit) capsule fluticasone propionate 50 1 spray intranasal DAILY Allergy 08/22/21 07/10/22 History mcg/actuation nasal symptoms spray,suspension oxycodone 5 mg tablet 5 mg PO TID PRN Pain 07/10/22 07/10/22 History New Prescriptions to Start Prescriptions: Allergies Allergy/AdvReac Type Severity Reaction Status Date / Time Penicillins [PENICILLINS] Allergy Unknown Verified 04/25/22 10:59 tetracycline [TETRACYCLINE] Allergy Unknown Verified 04/25/22 10:59 Exam (Inpt) Vital signs and Labs for Last 24 Hours: Temp Pulse Resp BP Pulse Ox 98.3 F 66 16 94/55 L 96 10/30/22 07:50 10/30/22 07:50 10/30/22 07:50 10/30/22 07:50 10/30/22 07:50 Laboratory Results - last 24 hr 10/30/22 06:05: WBC 14.1 H, RBC 4.05 L, Hgb 12.3, Hct 38.9, MCV 96.1, MCH 30.4, MCHC 31.6 L, RDW 12.8, Plt Count 487 H, MPV 7.9, Neut % (Auto) 64.1, Lymph % (Auto) 26.7, [place] % (Auto) 5.3, Eos % (Auto) 3.2, Baso % (Auto) 0.6, Neut # (Auto) 9.1 H, Lymph # (Auto) 3.8, [place] # (Auto) 0.7, Eos # (Auto) 0.5 H, Baso # (Auto) 0.1, ESR 52 H 10/30/22 06:05: Sodium 140, Potassium 3.7, Chloride 100, Carbon Dioxide 27, Anion Gap 16.7 H, BUN 12, Creatinine 0.90, Estimated Creat Clear 119, Estimated GFR 69, Est GFR ( Amer) 84, Glucose 107 H, Calcium 8.8, Total Bilirubin 0.3, AST 34, ALT 30, Alkaline Phosphatase 103, C-Reactive Protein 34.3 H, Total Protein 8.8 H, Albumin 4.5, Globulin 4.3 H, Albumin/Globulin Ratio 1.0 L, Proca
--- NOTE | 2022-10-30 09:02 | HMH.PHAINT1 ---
Pharmacy Intervention Comments: MEDICATION RECONCILIATION COMPLETED USING EXTERNAL FILL HISTORY FROM OUTSIDE PHARMACY.
--- NOTE | 2022-10-30 09:24 | EXP.PHA.CONS ---
Pharmacy Consult Date: 10/30/22 Time: 09:24 Referring provider: DR. MCMULLEN Reason for Consult:: VANCOMYCIN DOSING CONSULT Allergies Allergy/AdvReac Type Severity Reaction Status Date / Time Penicillins [PENICILLINS] Allergy Unknown Verified 04/25/22 10:59 tetracycline [TETRACYCLINE] Allergy Unknown Verified 04/25/22 10:59 Home Medications Medication Instructions Recorded Confirmed Type montelukast 10 mg tablet 10 mg PO PM Allergy symptoms 05/27/19 10/30/22 History atenolol 100 mg tablet 100 mg PO DAILY High blood pressure 11/18/19 10/30/22 History potassium chloride 10 mEq 10 meq PO DAILY Supplement 11/18/19 10/30/22 History capsule,extended release escitalopram oxalate 20 mg tablet 20 mg PO DAILY Mood 08/24/20 10/30/22 History albuterol sulfate 90 mcg/actuation 1 - 2 puff inhalation Q6HP PRN 08/22/21 10/30/22 History aerosol inhaler (ProAir HFA) Shortness Of Breath ergocalciferol (vitamin D2) 1,250 1,250 mcg PO WEEKLY Supplement 08/22/21 10/30/22 History mcg (50,000 unit) capsule fluticasone propionate 50 1 - 2 spray intranasal DAILY 08/22/21 10/30/22 History mcg/actuation nasal Allergy symptoms spray,suspension adalimumab 40 mg/0.4 mL 40 mg SQ WEEKLY Axillary HS 10/30/22 10/30/22 History subcutaneous pen kit (Humira(CF) Pen) bupropion HCl 150 mg 24 hr tablet, 150 mg PO DAILY Mood 10/30/22 10/30/22 History extended release cetirizine 10 mg tablet 10 mg PO DAILY Allergies 10/30/22 10/30/22 History fluticasone propionate 115 2 inh inhalation BID Shortness of 10/30/22 10/30/22 History mcg-salmeterol 21 mcg/actuation breath HFA inhaler (Advair HFA) hydrochlorothiazide 12.5 mg capsule 12.5 mg PO DAILY High blood 10/30/22 10/30/22 History pressure spironolactone 50 mg tablet 50 mg PO DAILY Acne 10/30/22 10/30/22 History New Prescriptions to Start Prescriptions: Height: 1.65 m Weight: 89.811 kg Laboratory Results:: Laboratory Results - last 24 hr 10/30/22 06:05: WBC 14.1 H, RBC 4.05 L, Hgb 12.3, Hct 38.9, MCV 96.1, MCH 30.4, MCHC 31.6 L, RDW 12.8, Plt Count 487 H, MPV 7.9, Neut % (Auto) 64.1, Lymph % (Auto) 26.7, [place] % (Auto) 5.3, Eos % (Auto) 3.2, Baso % (Auto) 0.6, Neut # (Auto) 9.1 H, Lymph # (Auto) 3.8, [place] # (Auto) 0.7, Eos # (Auto) 0.5 H, Baso # (Auto) 0.1, ESR 52 H 10/30/22 06:05: Sodium 140, Potassium 3.7, Chloride 100, Carbon Dioxide 27, Anion Gap 16.7 H, BUN 12, Creatinine 0.90, Estimated Creat Clear 119, Estimated GFR 69, Est GFR ( Amer) 84, Glucose 107 H, Calcium 8.8, Total Bilirubin 0.3, AST 34, ALT 30, Alkaline Phosphatase 103, C-Reactive Protein 34.3 H, Total Protein 8.8 H, Albumin 4.5, Globulin 4.3 H, Albumin/Globulin Ratio 1.0 L, Procalcitonin 0.039 10/30/22 06:05: Lactate 1.9 10/30/22 06:05: Serum HCG, Qual Negative 10/30/22 07:07: SARS-CoV-2 (PCR) Not detected, Influenza A Untype (PCR) Not detected, Influenza Type B (PCR) Not detected Medical History: Medical History (Updated 10/30/22 @ 08:11 by Owen Mcmullen MD) Anemia Anxiety Asthma Cancer Hypertension Assessment and Plan Assessment and plan all Dx Assessment and Plan for all problems:: Pharmacokinetic dosing service Objective: Age: 42 yo Serum creatinine: 0.9 mg/dL Height: 65.0 Inches Weight (kg): 89.811 Diagnosis: ABSCESS, HISTORY OF MRSA INFECTION Assessment: IBW (kg): 57.00 Dosing wt(kg): 89.811 Estimated Creatinine clearance (ml/min): 74.8 CRCL method: Cockcroft and Gault using ibw(default). Drug selected: Vancomycin Vd (liters): 67.4 (factor used: 0.75 L/kg) Piter (hr-1): 0.066 Half life (hrs): 10.50 CLvanco=?? 4.448 L/hr Recommended dose: 1750 mg Interval: 18 hrs Infusion time (hrs): 2.0 Predicted peak (mcg/mL): 35.0 Predicted trough (mcg/mL): 12.17 Total body weight is being used for vancomycin dosing. Jonny
--- NOTE | 2022-10-30 10:36 | P.PN_ITS ---
[facility] Disclaimer: The information contained in this section may have been updated after the patient was seen, as this information can be updated by other users. Medical History Anemia Anxiety Asthma Cancer Hypertension Surgical History History of appendectomy History of section History of cholecystectomy History of tonsillectomy History of tympanostomy tube placement Family History (Updated 10/30/22 @ 09:18 by Vivian Christianson, COLBY) Other Diabetes Hypertension Social History (Updated 10/30/22 @ 09:19 by Vivian Christianson RN) Smoking Status: Never smoker second hand exposure: Yes alcohol intake: never substance use type: denies use current occupational status: employed Travel in the last 8 weeks: None household members: spouse and children housing: house caffeine: Yes [facility] Anesthesia Checklist Patient Identification Patient Identification: Arm Band Structural Data Admitted From: Home Planned Operative Procedure/s: I&D Right Thigh Abscess Consent for Planned Operative Procedure(s) Verified: Yes Verified Documents: Surgical Consent and History and Physical NPO Status Verified Time NPO: 00:00 Additional verifications Anesthesia Reactions: No Hx Blood Transfusions: No Blood Transfusion Reaction: No Airway Assessment C-Spine Mobility Assessed: Yes TMJ Mobility Assessed: Yes Dentition: Good Dentition Neurological Assessment Level of Consciousness: Awake and Alert Anesthesia Plan Anesthesia Risk discussed: Yes Anesthesia Plan: Verified ASA Class: II Anesthesia Type: General
--- NOTE | 2022-10-30 11:10 | P.OP_ITS ---
Date of procedure: 10/30/22 Pre-op Diagnosis:: Soft tissue infection with abscess of the right medial proximal thigh Post-op Diagnosis:: Soft tissue infection with abscess of the right medial proximal thigh Procedure performed:: Incision and drainage of thigh abscess with debridement of skin and subcutaneous tissues Surgeon:: Angel Edward MD ELECTRICAL INSTRUMENT TECHNICIAN:: Parish Mosqueda Anesthesia: LMA Estimated blood loss (mL): 5 Operative findings:: Focal subcutaneous abscess with overlying skin necrosis Of note, intraoperatively it was noted that patient had an area of induration without fluctuance in the left pubic location. Operative note:: Consent was obtained patient was taken to the operating room. She was positioned in supine position. General anesthesia was induced via LMA. She was positioned in somewhat of a right frog-leg position to allow exposure to the area. The area was prepped and draped in the standard surgical fashion. Using electrocautery limited incision was made at the central area of fluctuance and focal skin necrosis. There was underlying light brownish pus which exuded from the wound. This was sent for culture. The overlying devitalized skin was excised. There is underlying abscess cavity. There was some indurated subcutaneous tissue. The area was probed digitally and there was some tunneling. Inflamed indurated subcutaneous tissue and some additional surrounding devitalized skin was excised using electrocautery. The wound was then irrigated. Hemostasis was achieved with electrocautery. Local anesthetic was infiltrated. Wound was packed with a dry 4 x 4 gauze and covered with clean dry sterile dressing. Condition: stable Disposition: PACU Complications:: None immediately apparent
--- NOTE | 2022-10-30 11:15 | EXP.ANES.I ---
[facility] Anesthesia Record Part I Anesthesia Record I Intake, IV Amount: 600 Estimated blood loss (mL): 5 Urine output (mL): 0 Blood Products used (#): none Blood Pressure: 132/77 SaO2: 92 Pulse Rate: 70 Respiratory Rate: 16 Temperature: 97.9 F Patient is:: Drowsy and Stable Stable to PACU at:: 11:15
--- NOTE | 2022-10-30 11:38 | PC.NURSE ---
RECEIVED REPORT FROM DEE BOWMAN IN PACU.
--- NOTE | 2022-10-30 13:34 | P.PNANES_ITS ---
[facility] Anesthesia Record Part II Anesthesia Record Part II Discharge Time: 11:44 Destination: Medical Surgical Department PACU nurse assessment reviewed?: Yes Patient Condition:: Good Anesthesia Complications:: None Swallowing reflex intact?: Yes Cyanosis?: No Blood Pressure: 112/60 Pulse Rate: 71 Temperature: 97.5 F Mental Status: Alert & Oriented Pain level:: 0 Nausea and/or vomitting:: None Intake, IV Amount: 0
--- NOTE | 2022-10-30 18:14 | PC.NURSE ---
A&OX4. RESPIRATIONS REGULAR AND UNLABORED. PT HAS REMAINED ON RA THROUGHOUT SHIFT. NO COUGH NOTED. ACTIVE BOWEL SOUNDS HEARD IN ALL 4 QUADRANTS. SOFT AND NONTENDER. NO BM REPORTED THUS FAR. LUNGS CLEAR THROUGHOUT. NO EDEMA NOTED. HAND DEEP TISSUE MASSAGE THERAPIST EQUAL. +2 PULSES NOTED THROUGHOUT. HAS REMAINED AT BEDSIDE THROUGHOUT SHIFT. PT HAD AN I&D TODAY. PT HAS TOLERATED WELL THUS FAR. DRESSING NOTED TO R THIGH. DRESSING HAS REMAINED CDI THUS FAR. PT REPORTED PAIN ONCE AND RECEIVED MORPHINE PER MAR. ON REASSESSMENT, PT DENIED PAIN. PT REPORTED NAUSEA ONCE AFTER EATING SUPPER AND RECEIVED ZOFRAN. ON REASSESSMENT PT DENIED NAUSEA. PT AMBULATES INDEPENDENTLY IN ROOM. NS INFUSING AT 100ML/HR. PT RECEIVED VANC THIS SHIFT AND TOLERATED WELL. NO QUESTIONS OR CONCERNS VOICED THUS FAR. BED IN LOWEST POSITION. CALL LIGHT WITHIN REACH. VSS. WILL CONTINUE TO MONITOR.
[2022-10-31 04:00] VITALS: BP 127/85; PULSE 92; RESP 18; TEMP 36.8; O2SAT 97; BMI 34.7
[2022-10-31 06:15] LABS: Chloride 109 mmol/L (98-107); Sodium 141 mmol/L (136-145)
[2022-10-31 06:18] LABS: Basophils % 0.2 % (0.1-2.0); Blood Urea Nitrogen 8 mg/dl (7-17); Carbon Dioxide 22 mmol/L (22.0-30.0); Creatinine Clearance Estimated 159 mL/min (50-200); Eosinophils % 0.1 % (0.1-12.0); Estimated Glomerular Filt Rate 93 ml/min (>60); GFR (African American) 112 ML/MIN (>60); Hematocrit 32.7 % (37.0-47.0)
[2022-10-31 06:19] LABS: Glucose 112 mg/dl (74-100)
[2022-10-31 06:39] LABS: Lymphocytes # 1.9 K/mm3 (0.7-4.5); Lymphocytes % 12.9 % (10-50); Mean Corpuscular HGB Conc 31.3 g/dL (31.8-35.4); Mean Corpuscular Hemoglobin 30.5 pg (27.0-31.2); Mean Corpuscular Volume 97.3 fl (81-99); Mean Platelet Volume 7.8 fl (7.4-10.4); Monocytes # 0.8 K/mm3 (0.1-1.0); Monocytes % 5.6 % (1.7-9.3); Neutrophils # 11.9 K/mm3 (1.8-7.8); Neutrophils % 81.2 % (37.0-80.0); Platelet Count 391 K/mm3 (142-424); Red Blood Count 3.36 M/mm3 (4.20-5.40); Red Cell Distribution Width 12.7 % (11.5-17.5); White Blood Count 14.6 K/mm3 (4.8-10.8)
[2022-10-31 06:43] LABS: Hemoglobin 10.3 g/dL (12.2-16.2)
--- NOTE | 2022-10-31 06:43 | PC.NURSE ---
Refused bath wanted to wait until next dressing change on
--- NOTE | 2022-10-31 07:08 | PC.NURSE ---
Pt c/o pain in inner right thigh 3 x t/o shift. PRN Morphine administered, pt stated favorable results. DSG changed to right inner thigh due to being saturated, pt tolerated well. at bedside, call light within reach.
[2022-10-31 07:35] VITALS: BP 120/71; PULSE 83; RESP 18; TEMP 36.7; O2SAT 96
--- NOTE | 2022-10-31 07:56 | P.PN_ITS ---
Subjective Narrative: Patient having some significant pain, especially with dressing changes. Exam Data for Last 24 hours Vital signs and Labs for Last 24 Hours: Temp Pulse Resp BP Pulse Ox 98.0 F 83 18 120/71 96 10/31/22 07:35 10/31/22 07:35 10/31/22 07:35 10/31/22 07:35 10/31/22 07:35 Laboratory Results - last 24 hr 10/30/22 07:07: SARS-CoV-2 (PCR) Not detected, Influenza A Untype (PCR) Not detected, Influenza Type B (PCR) Not detected 10/31/22 06:00: WBC 14.6 H, RBC 3.36 L, Hgb 10.3 L D, Hct 32.7 L, MCV 97.3, MCH 30.5, MCHC 31.3 L, RDW 12.7, Plt Count 391, MPV 7.8, Neut % (Auto) 81.2 H, Lymph % (Auto) 12.9, [place] % (Auto) 5.6, Eos % (Auto) 0.1, Baso % (Auto) 0.2, Neut # (Auto) 11.9 H, Lymph # (Auto) 1.9, [place] # (Auto) 0.8, Eos # (Auto) 0.0, Baso # (Auto) 0.0 10/31/22 06:00: Sodium 141, Potassium 4.0, Chloride 109 H, Carbon Dioxide 22, Anion Gap 14.0, BUN 8 D, Creatinine 0.70 D, Estimated Creat Clear 159, Estimated GFR 93, Est GFR ( Amer) 112 D, Glucose 112 H, Calcium 8.0 L I & O for Last 24 hours: Intake & Output 10/28/22 10/29/22 10/30/22 10/31/22 11:59 11:59 11:59 11:59 Intake Total 600 / 600 480 / 480 Output Total 0 / 0 Balance 600 / 600 480 / 480 Weight 198 lb 208 lb 1 oz Microbiology Reports for the Last 24 Hours: Microbiology 10/30/22 13:59 Thigh - Right Gram Stain - Final *Routine Skin Exam Comments: Fading erythema, significant tenderness and induration. Other left pubic area with erythema and induration. Progress Note: A&P Assessment and plan (1) Abscess of right thigh: Status: Acute Assessment and plan: Continue inpatient antibiotics for now.
--- NOTE | 2022-10-31 08:06 | EXP.ACUTE.PN ---
Subjective *Date: 10/31/22 *Time: 08:06 Interval history: Patient went to the OR yesterday. Appreciate surgery procedure and input. Reviewed op notes. I rounded this morning with surgery service. Significant pain, nurses report significant deep packing needed. Medical Exam Vital signs and Labs for Last 24 Hours: Vital Signs Temp Pulse Pulse Resp BP BP Pulse Ox 10/31/22 07:35 98.0 F 83 18 120/71 96 10/31/22 04:00 98.3 F 92 H 18 127/85 97 10/30/22 19:50 98.5 F 81 18 120/73 95 10/30/22 18:30 77 18 102/70 L 96 10/30/22 17:30 67 18 108/71 L 97 10/30/22 16:30 73 18 104/61 L 94 L 10/30/22 15:30 69 18 106/67 L 96 10/30/22 11:45 97.9 F 72 18 109/57 L 98 10/30/22 14:30 73 16 102/52 L 96 10/30/22 14:00 63 18 106/65 L 96 10/30/22 13:30 60 18 102/69 L 94 L 10/30/22 13:00 98.0 F 63 16 109/64 L 94 L 10/30/22 12:30 98.1 F 66 16 110/72 94 L 10/30/22 12:15 98.1 F 69 16 100/70 L 96 10/30/22 12:00 97.9 F 69 18 117/98 H 97 10/30/22 11:45 97.9 F 72 18 109/57 L 98 10/30/22 11:44 97.5 F L 71 16 112/60 98 10/30/22 11:35 79 16 113/75 95 10/30/22 11:25 77 16 113/58 L 94 L 10/30/22 11:15 97.9 F 70 16 132/77 92 L 10/30/22 11:16 97.9 F 70 16 132/77 Intake and Output 10/30/22 10/31/22 10/31/22 19:59 03:59 11:59 Intake Total 240 / 480 240 / 480 Output Total 0 / 0 0 / 0 Balance 240 / 480 240 / 480 Intake: Intake, Oral Amount 240 / 480 240 / 480 Intake, Total IV Amount 0 / 0 Output: Output, Urine Amount 0 / 0 0 / 0 Other: Number of Unmeasured Voids 2 1 Weight 208 lb 1 oz Patient Weight 10/31/22 11:59 Weight 208 lb 1 oz Laboratory Results - last 24 hr 10/31/22 06:00: WBC 14.6 H, RBC 3.36 L, Hgb 10.3 L D, Hct 32.7 L, MCV 97.3, MCH 30.5, MCHC 31.3 L, RDW 12.7, Plt Count 391, MPV 7.8, Neut % (Auto) 81.2 H, Lymph % (Auto) 12.9, [place] % (Auto) 5.6, Eos % (Auto) 0.1, Baso % (Auto) 0.2, Neut # (Auto) 11.9 H, Lymph # (Auto) 1.9, [place] # (Auto) 0.8, Eos # (Auto) 0.0, Baso # (Auto) 0.0 10/31/22 06:00: Sodium 141, Potassium 4.0, Chloride 109 H, Carbon Dioxide 22, Anion Gap 14.0, BUN 8 D, Creatinine 0.70 D, Estimated Creat Clear 159, Estimated GFR 93, Est GFR ( Amer) 112 D, Glucose 112 H, Calcium 8.0 L I & O for Labs for Last 24 Hours: Intake & Output 10/28/22 10/29/22 10/30/22 10/31/22 11:59 11:59 11:59 11:59 Intake Total 600 / 600 480 / 480 Output Total 0 / 0 Balance 600 / 600 480 / 480 Weight 198 lb 208 lb 1 oz Microbiology Reports for the Last 24 Hours: Microbiology 10/30/22 13:59 Thigh - Right Gram Stain - Final Comment:: Patient is pleasant, talkative, cardiopulmonary assessment unremarkable. Abdomen soft. Packing is in place. Area around the wound is less indurated. There however is an area of induration on the pubic area just above the left inguinal crease but no fluctuance. Assessment and Plan *Assessment and plan (1) Abscess of right thigh: Status: Acute Category: Medical Code(s): L02.415 - Cutaneous abscess of right lower limb Plan: Agree with admission, vancomycin, surgical consultation for debridement. Plan Given persistent induration in the left groin area we will keep patient, add clindamycin, continue packing. Await cultures
--- NOTE | 2022-10-31 10:50 | PC.NURSE ---
COURTESY TECH NOTE; ROUNDED ON PT 0840, PT DENIED NEED FOR DRINK, ASSISTANCE WITH RESTROOM, NEED TO REPOSITION. CALL LIGHT WITHIN REACH, NO FURTHER REQUESTS AT THIS TIME Elsy KEEN, ISAÍAS
--- NOTE | 2022-10-31 12:14 | PC.NURSE ---
PT TREATED THUS FAR THIS SHIFT WITH MORPHINE AND NORCO. EFFECTIVENESS NOTED.
--- NOTE | 2022-10-31 13:57 | PC.WOUNDNOTE ---
LEFT UNDERARM PICTURED LEFT UNDERARM PICTURED UNDER R ARM UNDER RIGHT ARM
[2022-10-31 15:08] VITALS: BP 129/78; PULSE 79; RESP 18; TEMP 36.4; O2SAT 98
--- NOTE | 2022-10-31 16:32 | PC.NURSE ---
A&OX4. TOLERATING RA WELL. PAIN CONTINUES TO BE CONTROLLED PER MAR. PT HAS HAD EPISODE OF NAUSEA WITH SMALL AMOUNT OF EMESIS NOTED. PT HAS HAD A ROUGH TIME THIS SHIFT. DRESSING CHANGED TO R GROIN AREA. RED DRAINAGE NOTED ON PACKING. MULTIPLE AREAS NOTED TO MULTIPLE PLACES ON PT BODY, INCLUDING GROIN AREA, BREAST. AREAS TO BILATERAL UNDERARMS PRESENT FROM SURGERY DONE AT IN JUNE. PICTURES ON CHART. DID HELP PT RE-DRESS THESE AREAS. TOLERATED WELL. PT IS REQUESTING THAT WOUND CARE COMES TO SEE HER, LEFT MESSAGE WITH DR VELASCO'S OFFICE. PT HAS BEEN AT BEDSIDE. PT HAS BEEN UP TO CHAIR TODAY, AND DID BATHE WITH 'S ASSISTANCE. PT IS DOWN OVERALL ABOUT HEALTH. NO OTHER NEEDS NOTED AT THIS TIME. NEW LINENS APPLIED TO BED THIS SHIFT WELL. VSS.
[2022-10-31 18:53] LABS: Vancomycin,Trough 9.2 ug/mL (5.0-10.0)
[2022-10-31 20:00] VITALS: BP 106/63; PULSE 79; RESP 16; TEMP 37; O2SAT 94; O2SAT 97
[2022-10-31 21:00] VITALS: BP 111/64; PULSE 75; RESP 17; TEMP 36.7; O2SAT 94
[2022-11-01 04:00] VITALS: BP 131/89; PULSE 69; RESP 17; TEMP 36.7; O2SAT 93; BMI 35.4
[2022-11-01 06:25] LABS: Basophils % 0.5 % (0.1-2.0); Eosinophils # 0.3 K/mm3 (0.0-0.4); Eosinophils % 3.1 % (0.1-12.0); Hematocrit 30.7 % (37.0-47.0); Hemoglobin 9.7 g/dL (12.2-16.2); Lymphocytes # 2.9 K/mm3 (0.7-4.5); Lymphocytes % 33.4 % (10-50); Mean Corpuscular HGB Conc 31.5 g/dL (31.8-35.4); Mean Corpuscular Hemoglobin 30.9 pg (27.0-31.2); Mean Platelet Volume 8.2 fl (7.4-10.4); Monocytes # 0.6 K/mm3 (0.1-1.0); Monocytes % 7.3 % (1.7-9.3); Neutrophils # 4.9 K/mm3 (1.8-7.8); Neutrophils % 55.8 % (37.0-80.0); Platelet Count 365 K/mm3 (142-424); Red Blood Count 3.13 M/mm3 (4.20-5.40); Red Cell Distribution Width 12.9 % (11.5-17.5); White Blood Count 8.7 K/mm3 (4.8-10.8)
[2022-11-01 06:26] LABS: Chloride 111 mmol/L (98-107); Potassium 3.6 mmoL/L (3.5-5.1); Sodium 144 mmol/L (136-145)
[2022-11-01 06:29] LABS: Anion Gap 12.6 mEq/L (5-15); Calcium 7.6 mg/dl (8.4-10.2); Carbon Dioxide 24 mmol/L (22.0-30.0); Glucose 90 mg/dl (74-100)
[2022-11-01 06:35] LABS: Blood Urea Nitrogen 7 mg/dl (7-17); Creatinine Clearance Estimated 142 mL/min (50-200); Estimated Glomerular Filt Rate 79 ml/min (>60); GFR (African American) 96 ML/MIN (>60)
--- NOTE | 2022-11-01 06:54 | PC.NURSE ---
Pt has c/o pain 2x t/o shift to right inner thigh and pt had an episode of n/v last night. Zofran did not give pt relief, phenergan worked well for pt. DSG to right inner thigh changed, serosang drainage noted. Pt tolerated well. at bedside, call light within reach.
[2022-11-01 07:34] VITALS: BP 106/71; PULSE 81; RESP 20; TEMP 36.9; O2SAT 96
--- NOTE | 2022-11-01 07:54 | XR_ITS ---
FINAL REPORT CLINICAL HISTORY: Confirm PICC line placement COMPARISON: 07/10/2022 FINDINGS: SINGLE-VIEW CHEST The heart size is normal. The mediastinum is normal. The lungs are clear. There is no pneumothorax. New left PICC line, tip terminates in the mid SVC. IMPRESSION: PICC line as above. Reviewed, Interpreted and Dictated by Angel Hoang III, MD Transcribed by Sophia Mas Authenticated and [facility]
--- NOTE | 2022-11-01 07:54 | EXP.ACUTE.PN ---
Subjective *Date: 11/01/22 *Time: 07:54 Interval history: Patient has no fever, is a bit more comfortable with packing change. Medical Exam Vital signs and Labs for Last 24 Hours: Vital Signs Temp Pulse Resp BP Pulse Ox 11/01/22 07:34 98.4 F 81 20 106/71 L 96 11/01/22 04:00 98.1 F 69 17 131/89 93 L 10/31/22 20:00 94 L 10/31/22 21:00 98.0 F 75 17 111/64 94 L 10/31/22 20:00 98.6 F 79 16 106/63 L 97 10/31/22 15:08 97.6 F 79 18 129/78 98 Intake and Output 10/31/22 11/01/22 11/01/22 19:59 03:59 11:59 Intake Total 240 / 480 240 / 480 Output Total 0 / 0 0 / 0 Balance 240 / 480 240 / 480 Intake: Intake, Oral Amount 240 / 480 240 / 480 Output: Output, Urine Amount 0 / 0 0 / 0 Other: Number of Unmeasured Voids 3 1 Weight 212 lb 6.4 oz Patient Weight 11/01/22 11:59 Weight 212 lb 6.4 oz Laboratory Results - last 24 hr 10/31/22 18:00: Vancomycin Trough 9.2 10/31/22 22:50: Vancomycin Peak 7.0 L 11/01/22 05:59: WBC 8.7 D, RBC 3.13 L, Hgb 9.7 L, Hct 30.7 L, MCV 98.0, MCH 30.9, MCHC 31.5 L, RDW 12.9, Plt Count 365, MPV 8.2, Neut % (Auto) 55.8, Lymph % (Auto) 33.4, [place] % (Auto) 7.3, Eos % (Auto) 3.1, Baso % (Auto) 0.5, Neut # (Auto) 4.9, Lymph # (Auto) 2.9, [place] # (Auto) 0.6, Eos # (Auto) 0.3, Baso # (Auto) 0.0 11/01/22 05:59: Sodium 144, Potassium 3.6, Chloride 111 H, Carbon Dioxide 24, Anion Gap 12.6, BUN 7, Creatinine 0.80, Estimated Creat Clear 142, Estimated GFR 79, Est GFR ( Amer) 96, Glucose 90, Calcium 7.6 L I & O for Labs for Last 24 Hours: Intake & Output 10/29/22 10/30/22 10/31/22 11/01/22 11:59 11:59 11:59 11:59 Intake Total 600 / 600 480 / 480 480 / 480 Output Total 0 / 0 0 / 0 Balance 600 / 600 480 / 480 480 / 480 Weight 198 lb 208 lb 1 oz 212 lb 6.4 oz Microbiology Reports for the Last 24 Hours: Microbiology 10/30/22 06:05 Blood Blood Culture - Preliminary NO GROWTH AFTER 48 HOURS 10/30/22 06:05 Blood Blood Culture - Preliminary NO GROWTH AFTER 48 HOURS 10/30/22 13:59 Thigh - Right Gram Stain - Final 10/30/22 13:59 Thigh - Right Abscess Culture - Preliminary NO GROWTH AFTER 24 HOURS Comment:: Alert, pleasant. Breathing easily. Heart rate regular. Wound is clean and dry and intact, surrounding redness is improving. Suprapubic inflammation is slightly improved. No distal edema in the leg. Assessment and Plan *Assessment and plan (1) Abscess of right thigh: Status: Acute Category: Medical Code(s): L02.415 - Cutaneous abscess of right lower limb Plan: Agree with admission, vancomycin, surgical consultation for debridement. Plan Given persistent induration in the left groin area we will keep patient, add clindamycin, continue packing. Await cultures Plan update for 11/01/2022-given persistent wound drainage and size of wound will initiate PICC line and daptomycin to plan for outpatient infusion for the next 10 to 14 days. P.o. clindamycin to augment gram-positive coverage especially given her suprapubic inflammation. Surgery consult to follow today.
--- NOTE | 2022-11-01 10:11 | PC.NURSE ---
COURTESY TECH NOTE; ROUNDED ON PT 0830, PT DENIED NEED FOR ASSISTANCE WITH RESTROOM, DRINK, OR NEED TO REPOSITION. ASSISTED PT WITH LIGHTS, CALL LIGHT WITHIN REACH, NO FURTHER REQUESTS AT THIS TIME ISAÍAS KEARNS
[2022-11-01 11:55] VITALS: BMI 35.4
--- NOTE | 2022-11-01 13:05 | PC.NURSE ---
COURTESY TECH NOTE; ROUNDED ON PT 1130, PT STATES HE WILL ASSIST WITH BED BATH AFTER MEAL, ENCOURAGED PT TO USE CALL LIGHT IF ASSISTANCE NEEDED, PT DENIED NEED FOR ASSISTANCE WITH RESTROOM, DRINK, OR REPOSITIONING. CALL LIGHT WITHIN REACH, NO FURTHER REQUESTS AT THIS TIME ISAÍAS KEARNS
[2022-11-01 14:02] VITALS: BP 115/72; PULSE 80; RESP 20; TEMP 36.6; O2SAT 97
--- NOTE | 2022-11-01 14:28 | ECG_ITS ---
APPROVED REPORT Exam: Resting ECG HR:77 bpm ECG Measurements Heart Rate 77 AXES TN 178 P 54 QRSd 78 QRS 68 QT 368 T 91 QTc 400 Conclusion SINUS RHYTHM NONSPECIFIC T-WAVE ABNORMALITY BORDERLINE ECG INTERPRETATION BASED ON A DEFAULT AGE OF 42 YEARS UNCONFIRMED REPORT Electronically signed by : Owen Mars MD 11/01/2022 16:15:56
--- NOTE | 2022-11-01 15:09 | EXP.SURG.PN ---
Subjective Narrative: Patient has been able to tolerate dressing changes somewhat better. Still with some significant tenderness but improving. She and her asked me to look at the areas under her arm where she has had extensive hidradenitis surgery by plastic surgery at in [place]. Exam Data for Last 24 hours Vital signs and Labs for Last 24 Hours: Temp Pulse Resp BP Pulse Ox 97.9 F 80 20 115/72 97 11/01/22 14:02 11/01/22 14:02 11/01/22 14:02 11/01/22 14:02 11/01/22 14:02 Laboratory Results - last 24 hr 10/31/22 18:00: Vancomycin Trough 9.2 10/31/22 22:50: Vancomycin Peak 7.0 L 11/01/22 05:59: WBC 8.7 D, RBC 3.13 L, Hgb 9.7 L, Hct 30.7 L, MCV 98.0, MCH 30.9, MCHC 31.5 L, RDW 12.9, Plt Count 365, MPV 8.2, Neut % (Auto) 55.8, Lymph % (Auto) 33.4, [place] % (Auto) 7.3, Eos % (Auto) 3.1, Baso % (Auto) 0.5, Neut # (Auto) 4.9, Lymph # (Auto) 2.9, [place] # (Auto) 0.6, Eos # (Auto) 0.3, Baso # (Auto) 0.0 11/01/22 05:59: Sodium 144, Potassium 3.6, Chloride 111 H, Carbon Dioxide 24, Anion Gap 12.6, BUN 7, Creatinine 0.80, Estimated Creat Clear 142, Estimated GFR 79, Est GFR ( Amer) 96, Glucose 90, Calcium 7.6 L I & O for Last 24 hours: Intake & Output 10/30/22 10/31/22 11/01/22 11/02/22 11:59 11:59 11:59 11:59 Intake Total 600 / 600 480 / 480 1200 / 1200 Output Total 0 / 0 0 / 0 0 / 0 Balance 600 / 600 480 / 480 1200 / 1200 0 / 0 Weight 198 lb 208 lb 1 oz 212 lb 6.293 oz Microbiology Reports for the Last 24 Hours: Microbiology 10/30/22 13:59 Thigh - Right Gram Stain - Final 10/30/22 13:59 Thigh - Right Abscess Culture - Preliminary Gram Positive Cocci 10/30/22 06:05 Blood Blood Culture - Preliminary NO GROWTH AFTER 48 HOURS 10/30/22 06:05 Blood Blood Culture - Preliminary NO GROWTH AFTER 48 HOURS *Routine Skin Exam Comments: Under both axillae she has superficial areas of granulation tissue with without any evidence of deep infection. There is some greenish discharge on the [place] consistent with focal local bacterial overgrowth on the wound but no evidence of any infection. Left pubic area with edema and induration and erythema has improved. Right medial proximal thigh wound with regressing blanching erythema but persistent induration. Progress Note: A&P Assessment and plan (1) Abscess of right thigh: Status: Acute Assessment and plan: Arrangements are being made for outpatient antibiotics ultimately. I would plan for her to undergo dry dressing once daily to this area in the right medial proximal wound. This may be arranged potentially through wound clinic and I also discussed with her the possibility of the wound clinic addressing her axillary wounds as well. They would be interested in pursuing this route.
[2022-11-01 19:52] VITALS: BP 120/79; PULSE 87; RESP 18; TEMP 36.6; O2SAT 94
[2022-11-02] VITALS: BP 123/74; PULSE 93; RESP 18; TEMP 36.7; O2SAT 91
[2022-11-02 04:00] VITALS: BP 101/57; PULSE 85; RESP 18; TEMP 36.7; O2SAT 91; BMI 36.1
[2022-11-02 07:12] VITALS: BP 102/59; PULSE 78; RESP 18; TEMP 37; O2SAT 95
[2022-11-02 07:46] LABS: Basophils % 0.4 % (0.1-2.0); Eosinophils # 0.3 K/mm3 (0.0-0.4); Hematocrit 29.9 % (37.0-47.0); Hemoglobin 9.3 g/dL (12.2-16.2); Lymphocytes # 3.4 K/mm3 (0.7-4.5); Lymphocytes % 35.3 % (10-50); Mean Corpuscular HGB Conc 31.1 g/dL (31.8-35.4); Mean Corpuscular Hemoglobin 30.1 pg (27.0-31.2); Mean Platelet Volume 7.7 fl (7.4-10.4); Monocytes # 0.7 K/mm3 (0.1-1.0); Monocytes % 7.2 % (1.7-9.3); Neutrophils # 5.2 K/mm3 (1.8-7.8); Neutrophils % 54.2 % (37.0-80.0); Platelet Count 332 K/mm3 (142-424); Red Blood Count 3.08 M/mm3 (4.20-5.40); Red Cell Distribution Width 12.9 % (11.5-17.5); White Blood Count 9.6 K/mm3 (4.8-10.8)
[2022-11-02 07:52] LABS: Chloride 107 mmol/L (98-107); Potassium 3.3 mmoL/L (3.5-5.1); Sodium 141 mmol/L (136-145)
[2022-11-02 07:55] LABS: Anion Gap 12.3 mEq/L (5-15); Blood Urea Nitrogen 10 mg/dl (7-17); Carbon Dioxide 25 mmol/L (22.0-30.0); Creatinine Clearance Estimated 145 mL/min (50-200); Estimated Glomerular Filt Rate 79 ml/min (>60); GFR (African American) 96 ML/MIN (>60)
[2022-11-02 07:56] LABS: Calcium 7.4 mg/dl (8.4-10.2); Glucose 78 mg/dl (74-100)
--- NOTE | 2022-11-02 09:00 | EXP.DC.SUM ---
General Admission date:: 10/30/22 Discharge date: 11/02/22 HPI HPI HPI: Acidosis patient is a very pleasant 42-year-old female who had a history of multiple MRSA infections and hidradenitis. I had previously performed several incision and drainage of various soft tissue infections. Several months ago she had actually undergone extensive bilateral axillary hidradenitis surgery with plastic surgery at [facility] and is still healing from this. Most recently she had developed progressively tender swelling in the right medial proximal thigh over 48 hours and presented to the emergency department this morning. She was admitted for inpatient management and surgical consultation was obtained. Hospital Course Hospital Course Hospital Course: Patient was admitted, started on broad-spectrum antibiotics to cover gram-positive organisms. Surgery was consulted, took to the OR and debrided the area. Concerned about the left inguinal/suprapubic area also with some erythema. Patient was kept with IV antibiotics, cultures grew staph hemolyticus. Patient was able to be switched over to daptomycin for once daily outpatient administration, PICC line was placed and packing was done, significant pain was noted with this and patient was given analgesics for this. Had some heartburn, this resolved with a GI cocktail. See surgery notes regarding her axillary wounds. This morning patient had met goals of inpatient care, PICC line is functioning well. She will be discharged home to have 7 more days of intravenous daptomycin, wound packing changes. I will prescribe [place] to take just before she comes to the hospital for packing change, Zofran for nausea. She will follow-up in surgical clinic and wound care clinic. Exam Data for Last 24 hours Vital signs and Labs for Last 24 Hours: Temp Pulse Resp BP Pulse Ox 98.6 F 78 18 102/59 L 95 11/02/22 07:12 11/02/22 07:12 11/02/22 07:12 11/02/22 07:12 11/02/22 07:12 Laboratory Results - last 24 hr 11/02/22 07:22: WBC 9.6, RBC 3.08 L, Hgb 9.3 L, Hct 29.9 L, MCV 97.0, MCH 30.1, MCHC 31.1 L, RDW 12.9, Plt Count 332, MPV 7.7, Neut % (Auto) 54.2, Lymph % (Auto) 35.3, [place] % (Auto) 7.2, Eos % (Auto) 3.0, Baso % (Auto) 0.4, Neut # (Auto) 5.2, Lymph # (Auto) 3.4, [place] # (Auto) 0.7, Eos # (Auto) 0.3, Baso # (Auto) 0.0 11/02/22 07:22: Sodium 141, Potassium 3.3 L, Chloride 107, Carbon Dioxide 25, Anion Gap 12.3, BUN 10 D, Creatinine 0.80, Estimated Creat Clear 145, Estimated GFR 79, Est GFR ( Amer) 96, Glucose 78, Calcium 7.4 L I & O for Last 24 hours: Intake & Output 10/30/22 10/31/22 11/01/22 11/02/22 11:59 11:59 11:59 11:59 Intake Total 600 / 600 480 / 480 1200 / 1200 1620 / 1620 Output Total 0 / 0 0 / 0 200 / 200 Balance 600 / 600 480 / 480 1200 / 1200 1420 / 1420 Weight 198 lb 208 lb 1 oz 212 lb 6.293 oz 216 lb 9 oz Microbiology Reports for the Last 24 Hours: Microbiology 10/30/22 13:59 Thigh - Right Gram Stain - Final 10/30/22 13:59 Thigh - Right Abscess Culture - Final Staphylococcus haemolyticus 10/30/22 06:05 Blood Blood Culture - Preliminary NO GROWTH AFTER 48 HOURS 10/30/22 06:05 Blood Blood Culture - Preliminary NO GROWTH AFTER 48 HOURS *Routine HEENT Exam Head: Present normocephalic Eye: Present EOMI ENT: Present mucous membranes moist *Routine Neck Exam Neck: Present supple and full ROM; Absent JVD *Routine Respiratory Exam Respiratory: Present CTA bilaterally *Routine Cardiovascular Exam Cardiovascular: Present RRR, Normal S1 and Normal S2; Absent murmur *Routine Abdominal Exam Abdominal: Present soft and obese *Routine Rectal Exam Patient deferred: visual exam *Routine Exam Patient deferred: external exam *Routine Extremities Exam Extremities: Absent cyanosis, clubbing or edema *Routine Skin Exam Skin: Present wounds Comments: Under both axilla
--- NOTE | 2022-11-02 09:31 | PC.NURSE ---
DR MCMULLEN WANTS PT TO RECEIVE DAPTO DOSE BEFORE LEAVING. SPOKE WITH ISI IN PHARMACY SO WE CAN RETIME DOSE.
--- NOTE | 2022-11-04 14:41 | CARE MANAGER ---
Contacted patient related to hospital discharge. She left message with Dr. Edward's office for follow up appointment. 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 She denies any questions or concerns. COLBY Martinez
== END 2022-11-02 11:00 | disposition home or self-care (01) | DRG 571 ==
LOC: ER 07:09 → 2ND 07:54
PROVIDERS: Surgery; Admitting Provider Internal Medicine Adolescent Medicine; Emergency Provider Emergency Medicine; PCP Internal Medicine Adolescent Medicine; Visit Provider Internal Medicine Adolescent Medicine
PROC: 0JBL0ZZ Excision of Right Upper Leg Subcutaneous Tissue and Fascia, Open Approach (ICD-10-PCS; principal; 2022-10-30 11:45)
DX: L02.415 Cutaneous abscess of right lower limb (principal); I96 Gangrene, not elsewhere classified; D64.9 Anemia, unspecified; I10 Essential (primary) hypertension; F41.9 Anxiety disorder, unspecified
CPT/HCPCS: 11042; 36410; 36415; 36569; 71045; 80048; 80053; 80202; 83605; 84145; 84703; 85025; 85651; 86140; 87040; 87070; 87075; 87077; 87186; 87205; 87636; 88304; 93005; 94640; C1751; C9803; J0878; J2405; U0003; U0005

== ENCOUNTER 2022-11-03 12:36 | Outpatient (CLI) | payer OTHER, SELFPAY ==
[2022-11-03 13:20] VITALS: BMI 34.7
== END 2022-11-03 13:49 | disposition home or self-care (01) ==
LOC: INF 12:37
PROVIDERS: PCP Internal Medicine Adolescent Medicine; Visit Provider Surgery
DX: L02.415 Cutaneous abscess of right lower limb (principal); L03.115 Cellulitis of right lower limb
CPT/HCPCS: 96365; G0463; J0878

== ENCOUNTER 2022-11-04 13:31 | Outpatient (CLI) | payer OTHER, SELFPAY ==
[2022-11-04 14:09] LABS: Creatine Kinase 117 U/L (30-135)
[2022-11-04 14:15] VITALS: BP 130/77; PULSE 71; RESP 20; TEMP 36.8; O2SAT 98
[2022-11-04 15:08] VITALS: BP 124/80; PULSE 78; RESP 20; O2SAT 98
== END 2022-11-04 15:10 | disposition home or self-care (01) ==
LOC: INF 13:31
PROVIDERS: PCP Internal Medicine Adolescent Medicine; Visit Provider Surgery
DX: L02.415 Cutaneous abscess of right lower limb (principal)
CPT/HCPCS: 82550; 96365; G0463; J0878

== ENCOUNTER 2022-11-05 13:05 | Outpatient (CLI) | payer OTHER, SELFPAY ==
[2022-11-05 13:24] VITALS: BP 115/75; PULSE 73; RESP 18; TEMP 36.6; O2SAT 98
[2022-11-05 14:18] VITALS: BP 106/65; PULSE 61; RESP 18; O2SAT 98
== END 2022-11-05 14:20 | disposition home or self-care (01) ==
PROVIDERS: PCP Internal Medicine Adolescent Medicine; Visit Provider Surgery
DX: L02.415 Cutaneous abscess of right lower limb (principal)
CPT/HCPCS: 96365; G0463; J0878

== ENCOUNTER 2022-11-06 13:39 | Outpatient (CLI) | payer OTHER, SELFPAY ==
[2022-11-06 14:13] VITALS: BP 109/71; PULSE 73; RESP 18; TEMP 36.5; O2SAT 97
[2022-11-06 15:10] VITALS: BP 108/64; PULSE 64; RESP 18; O2SAT 97
== END 2022-11-06 15:10 | disposition home or self-care (01) ==
LOC: INF 13:40
PROVIDERS: PCP Internal Medicine Adolescent Medicine; Visit Provider Surgery
DX: L02.415 Cutaneous abscess of right lower limb (principal)
CPT/HCPCS: 96365; G0463; J0878

== ENCOUNTER 2022-11-07 13:06 | Outpatient (CLI) | payer OTHER, SELFPAY ==
[2022-11-07 13:28] VITALS: BP 106/82; PULSE 87; RESP 18; TEMP 36.8; O2SAT 97
[2022-11-07 14:08] VITALS: BP 105/62; PULSE 81; RESP 18; O2SAT 97
--- NOTE | 2022-11-07 14:10 | PC.NURSE ---
1410-notified md about other area popping up by the original wound; wanted to continue iv antibiotics.
== END 2022-11-07 14:08 | disposition home or self-care (01) ==
LOC: INF 13:08
PROVIDERS: PCP Internal Medicine Adolescent Medicine; Visit Provider Surgery
DX: L02.415 Cutaneous abscess of right lower limb (principal)
CPT/HCPCS: 96365; G0463

== ENCOUNTER 2022-11-08 09:57 | Outpatient (CLI) | payer OTHER, SELFPAY ==
[2022-11-08 10:50] VITALS: BP 123/82; PULSE 74; RESP 18; TEMP 36.6; O2SAT 97
[2022-11-08 11:28] VITALS: BP 119/55; PULSE 78; RESP 18; O2SAT 99
== END 2022-11-08 11:28 | disposition home or self-care (01) ==
LOC: INF 09:58
PROVIDERS: PCP Internal Medicine Adolescent Medicine; Visit Provider Internal Medicine Adolescent Medicine
DX: L02.415 Cutaneous abscess of right lower limb (principal); Z45.2 Encounter for adjustment and management of vascular access device
CPT/HCPCS: 96365; J0878

== ENCOUNTER 2022-11-09 13:38 | Outpatient (CLI) | payer OTHER, SELFPAY ==
[2022-11-09 13:57] VITALS: BP 110/75; PULSE 68; RESP 18; TEMP 36.9; O2SAT 96
== END 2022-11-09 14:52 | disposition home or self-care (01) ==
PROVIDERS: PCP Internal Medicine Adolescent Medicine; Visit Provider Internal Medicine Adolescent Medicine
DX: L02.415 Cutaneous abscess of right lower limb (principal)
CPT/HCPCS: 96365; J0878

== ENCOUNTER 2022-11-10 13:15 | Outpatient (CLI) | payer OTHER, SELFPAY ==
[2022-11-10 13:23] VITALS: BP 122/73; PULSE 95; RESP 18; O2SAT 97
== END 2022-11-10 14:05 | disposition home or self-care (01) ==
LOC: INF 13:15
PROVIDERS: PCP Internal Medicine Adolescent Medicine; Visit Provider Internal Medicine Adolescent Medicine
DX: L02.415 Cutaneous abscess of right lower limb (principal)
CPT/HCPCS: 96365; J0878

== ENCOUNTER 2022-11-11 13:34 | Outpatient (CLI) | payer OTHER, SELFPAY ==
[2022-11-11 13:52] VITALS: BP 120/68; PULSE 74; RESP 18; TEMP 36.4; O2SAT 97
[2022-11-11 14:40] VITALS: BP 125/62; PULSE 76; RESP 18; O2SAT 97
== END 2022-11-11 14:40 | disposition home or self-care (01) ==
LOC: INF 13:34
PROVIDERS: PCP Internal Medicine Adolescent Medicine; Visit Provider Internal Medicine Adolescent Medicine
DX: L02.415 Cutaneous abscess of right lower limb (principal)
CPT/HCPCS: 96365; J0878

== ENCOUNTER 2022-11-12 10:13 | Outpatient (CLI) | payer OTHER, SELFPAY ==
[2022-11-12 10:41] VITALS: BP 119/75; PULSE 79; RESP 18; O2SAT 96
[2022-11-12 11:39] VITALS: BP 122/77; PULSE 60; RESP 18; O2SAT 97
== END 2022-11-12 11:39 | disposition home or self-care (01) ==
LOC: INF 10:14
PROVIDERS: PCP Internal Medicine Adolescent Medicine; Visit Provider Internal Medicine Adolescent Medicine
DX: L02.415 Cutaneous abscess of right lower limb (principal); Z48.01 Encounter for change or removal of surgical wound dressing
CPT/HCPCS: 96365; G0463; J0878

== ENCOUNTER 2022-12-28 05:45 | Emergency (ER) | payer OTHER, SELFPAY ==
[2022-12-28 05:46] VITALS: BP 154/97; PULSE 79; RESP 20; TEMP 36.8; O2SAT 97; BMI 34.3
[2022-12-28 06:01] VITALS: BP 145/83; PULSE 72; O2SAT 96
--- NOTE | 2022-12-28 06:19 | PC.NURSE ---
in room with patient at this time.
--- NOTE | 2022-12-28 06:46 | HMH.EDGENADL ---
Discharge Plan Disposition Patient Disposition: Home, Self-Care Condition: Good Prescriptions Prescriptions: New sulfamethoxazole-trimethoprim 800-160 mg tablet 1 tab PO BID 8 Days Qty: 16 0RF No Action atenolol 100 mg tablet 100 mg PO DAILY potassium chloride 10 mEq capsule, extended release 10 meq PO DAILY fluticasone propionate 50 mcg/actuation spray,suspension 1 - 2 spray intranasal DAILY Rx Instructions: use in each nostril albuterol sulfate [ProAir HFA] 90 mcg/actuation HFA aerosol inhaler 1 - 2 puff inhalation Q6HP PRN (Reason: Shortness Of Breath) Rx Instructions: PT STATES SHE DOESNT USE ergocalciferol (vitamin D2) 1,250 mcg (50,000 unit) capsule 1,250 mcg PO WEEKLY montelukast 10 MG tablet 10 mg PO PM escitalopram oxalate 20 MG tablet 20 mg PO DAILY cetirizine 10 mg tablet 10 mg PO DAILY Patient Comments: TAKE ONE TABLET BY MOUTH EVERY DAY hydrochlorothiazide 12.5 mg capsule 12.5 mg PO DAILY Patient Comments: TAKE ONE CAPSULE BY MOUTH EVERY DAY spironolactone 50 mg tablet 100 mg PO BID Patient Comments: TAKE ONE TABLET BY MOUTH EVERY DAY bupropion HCl 150 mg tablet extended release 24 hr 150 mg PO DAILY Patient Comments: TAKE ONE TABLET BY MOUTH ONCE DAILY fluticasone propion-salmeterol [Advair HFA] 115-21 mcg/actuation HFA aerosol inhaler 2 inh INHALATION BID Patient Comments: INHALE TWO PUFFS BY MOUTH TWICE DAILY Humira(CF) Pen 40 mg/0.4 mL pen injector kit 40 mg SQ WEEKLY metformin 500 mg tablet 1,000 mg PO BID Referrals Follow up/Referrals: Owen Mars MD [Primary Care Provider] - See instructions Activity Restrictions/Add. Instructions Additional Instructions/Restrictions: Please take Bactrim as prescribed for surrounding cellulitis. Please follow-up with your general surgery appointment. Please return to the emergency department if you develop any new or worsening symptoms or become concerned for your health. Clinical Impressions Clinical Impression: Abscess of left thigh Instructions Patient Instructions: DI for Skin Abscess Discharge ED Provider: Efraín Hernandez Adult HPI General Chief complaint: Skin/Abscess/Foreign Body Stated complaint: Cyst on left inner thigh Time Seen by Provider: 12/28/22 06:00 Mode of Arrival: Ambulatory Source of Information: Patient Limitations: No Limitations Description of Symptoms (Recalled from ER Triage Doc. by RN): Pt presents with a cyst on her left inner thigh that developed on Friday. Pt has hx of Hidradenitis Suppurativa, right thigh cyst in October. Pt was on 20 days of abx. History of Present Illness HPI narrative: 42-year-old female, history of hidradenitis suppurativa, history of Crohn's, on Hum, history of abscess/infected cyst on the right leg presents with focal area of swelling erythema and pain in the left upper inner thigh since Friday. It has been enlarging. She thinks she may have had some spontaneous drainage but is not actively draining at this time. No reported fevers at home. She has had a similar cyst pop up on the right thigh previously that required cyst excision. She has an appointment with Dr. Edward on Friday. Related Data Home Medications Medication Instructions Recorded Confirmed montelukast 10 mg tablet 10 mg PO PM Allergy symptoms 05/27/19 12/28/22 atenolol 100 mg tablet 100 mg PO DAILY High blood pressure 11/18/19 12/28/22 potassium chloride 10 mEq 10 meq PO DAILY Supplement 11/18/19 12/28/22 capsule,extended release escitalopram oxalate 20 mg tablet 20 mg PO DAILY Mood 08/24/20 12/28/22 albuterol sulfate 90 mcg/actuation 1 - 2 puff inhalation Q6HP PRN 08/22/21 12/28/22 aerosol inhaler (ProAir HFA) Shortness Of Breath ergocalciferol (vitamin D2) 1,250 1,250 mcg PO WEEKLY Supplement 08/22/21 12/28/22 mcg (50,000 unit) capsule fluticasone propionate
[2022-12-28 06:47] VITALS: BP 144/84; PULSE 77; RESP 20; TEMP 36.8; O2SAT 98
== END 2022-12-28 06:51 | disposition home or self-care (01) ==
PROVIDERS: Emergency Provider Emergency Medicine; PCP Internal Medicine Adolescent Medicine
DX: L02.416 Cutaneous abscess of left lower limb (principal); L73.2 Hidradenitis suppurativa; K50.90 Crohn's disease, unspecified, without complications; F41.9 Anxiety disorder, unspecified; I10 Essential (primary) hypertension; J45.909 Unspecified asthma, uncomplicated
CPT/HCPCS: 99284

== ENCOUNTER 2022-12-31 14:00 | Outpatient (RCR) | payer OTHER, SELFPAY ==
--- NOTE | 2022-11-13 16:33 | HMH.PTOPWND ---
Rehab Outpt Wound Evaluation Rehab OP Wound Evaluation Start: 11/13/22 15:55 Freq: Status: Active Protocol: Document 11/13/22 15:59 [email or web address] (Rec: 11/13/22 16:32 PHORRUTH [id number]) E-signed By Miguel Mendoza, PT Subjective/History History History This is the initial PT eval for Napoleon Guo, 42 yowf who presents with chronic B axillary wounds x ~ 4 mos. She reports she had I&D of areas in B axilla in JUN of this year at an outside hospital due to underlying diagnosis of hidradenitis suppurativa ( [place] Stage III). She reports the surgeon has consistently told her everything was healing well and she should continue the use of WTD dressing. She reports she felt these dressings were actually worsening her condition and sought another opinion after being treated by a different surgeon for a similar lesion on her leg. She is now referred to our clinic for continued wound care. She has PMH of HS, Anxiety, crohn's disease. Subjective Subjective She reports pain currently 4/ 10 in L axilla, 2/10 in R axilla. 2/4 TTP noted to periwound skin in B axilla. Mild doughy edema noted to B subaxillary regions. Hypergranulation tissue noted, L axilla worse than R. Wound Eval Wound Left Lateral Chest Wound Type Incision Is This a Chronic Wound Yes Wound Length (cm) 2.2 Wound Width (cm) 3.0 Wound Depth (cm) 0.1 Wound Bed Appearance Beefy Red Percentage Granulated (%) 100 Wound Margins Description Well Defined Edema Type Non-Pitting Drainage Description Green Drainage Amount Small Drainage Odor No Odor Primary Dressing Composite Comment optifoam gentle border Wound Debridement Method Gauze,Mechanical Wound Debridement Amount of Tissue None Rem
--- NOTE | 2022-12-17 16:59 | HMH.RHREAS ---
Rehab Reassessment Rehab OP Re-assessment Start: 11/13/22 15:55 Freq: Status: Active Protocol: Document 12/17/22 16:53 [email or web address] (Rec: 12/17/22 16:59 PHOVALERIE [id number]) E-signed By Miguel Mendoza PT Rehab Re-assessment Subjective Subjective Pt reports much less pain and tenderness in B axilla. She presents with only 1 wound to B axillary areas now and significantly less total wound surface area. No tenderness noted with dressing changes this date. Objective Objective Notes B axillary wounds appear to be mostly healed. Minimal serous drainage noted. Continues to have possibility of further breakouts due to underlying pathology. R axilla wound: L= 1.1 cm, W= 1.3 cm, D= 0.1 cm. L axilla wound: L= 1.0 cm, W= 0.8 cm, D= 0.1 cm. Assessment Progress Assessment Progressing as Expected Assessment Notes Pt has shown significant reduction in overall wound area in B axilla. She reports significantly less pain with minimal drainage from wounds and no tenderness to palpation . Much improved ability to don /doff clothing. She continues to need skilled intervention to return to prior functional level. Patient goals met all STGs Goals Not Met all LTGs Revised Goals none Plan Plan Continue per initial POC. Frequency of Therapy 1 x/wk Duration of therapy 4 wks Time and Billing Re-Eval Time 14 Re-Eval Billing Units 1 PHYSICIAN CERTIFICATION: I certify the specified therapy services for Napoleon Guo are required, authorized, and reviewed every 30 days.
== END 2022-12-31 14:05 | disposition home or self-care (01) ==
LOC: PT 14:00
PROVIDERS: PCP Internal Medicine Adolescent Medicine; Visit Provider Surgery
DX: S41.101A Unspecified open wound of right upper arm, initial encounter (principal); S41.102A Unspecified open wound of left upper arm, initial encounter; L73.2 Hidradenitis suppurativa
CPT/HCPCS: 97163; 97164; 97597

== ENCOUNTER 2023-03-12 10:30 | Outpatient (RCR) | payer OTHER, SELFPAY ==
--- NOTE | 2023-03-04 14:57 | HMH.PTOPWND ---
Rehab Outpt Wound Evaluation Rehab OP Wound Evaluation Start: 03/04/23 14:37 Freq: Status: Active Protocol: Document 03/04/23 14:37 TEOFILO (Rec: 03/04/23 14:57 PHORRUTH [id number]) E-signed By Miguel Mendoza, PT Subjective/History History History This is the initial PT eval for Napoleon Guo, 42 yowf who presents with new onset B axillary wounds due to exacerbation of Hidradenitis Suppurativa. She reports theses wound have been present x ~ 2-3 wks, but she has a hx of prior wounds in the same area. She has also previously undergone surgical debridement of these types of wounds in the past. She reports minimal pain at this time, but considerable lina-wound skin irritation. PMH includes Crohn 's disease. Subjective Subjective Pt reports 3/10 pain at this time, 2/4 TTP in the lina- wound skine, and moderate erythema. She reports originally drainage was thick and green, but is now almost clear and more serous in nature. New diagnosis of cancer in past 12 No months? Wound Eval Wound Right Axilla Wound Type Hidradenitis Suppurativa Is This a Chronic Wound Yes Wound Length (cm) 0.7 Wound Width (cm) 0.9 Wound Depth (cm) 0.1 Wound Bed Appearance Beefy Red,Mineral Wound Margins Description Well Defined Surrounding Tissue Appearance Mineral,Bright Red Drainage Description Serous Drainage Amount Scant Wound Topical Solution/Irrigant Saline Irrigant Primary Dressing Silver Dressing Comment opticell Ag, calmoseptine to surrounding skin Wound Secondary Dressing Type Composite Comment optifoam gentle border Wound Debridement Method Gauze,Mechanical Wound Debridement Amount of Tissue None Removed Dressing Change Patient Tolerance Tolerated Well Left Axilla Wound Type Hidradenitis Suppurativa Is This a Chronic Wound Yes Wound Length (cm) 2.5 Wound Width (cm)
== END 2023-03-12 10:35 | disposition home or self-care (01) ==
LOC: PT 10:30
PROVIDERS: PCP Internal Medicine Adolescent Medicine; Visit Provider Surgery
DX: L73.2 Hidradenitis suppurativa (principal)
CPT/HCPCS: 97163; 97597

== ENCOUNTER 2023-03-28 19:44 | Emergency (ER) | payer OTHER, SELFPAY ==
[2023-03-28 19:45] VITALS: BP 125/82; PULSE 80; RESP 16; TEMP 36.8; O2SAT 98; BMI 34.3
[2023-03-28 20:00] VITALS: BP 131/73; PULSE 71; O2SAT 96
--- NOTE | 2023-03-28 20:12 | CT_ITS ---
PROCEDURE INFORMATION: Exam: CT Abdomen And Pelvis With Contrast Exam date and time: 03/28/2023 10:13 PM Age: 42 years old Clinical indication: Abdominal pain; Additional info: Generalized pain, crohn's, no bm>1 wk, no gas TECHNIQUE: Imaging protocol: Computed tomography of the abdomen and pelvis with contrast. Radiation optimization: All CT scans at this facility use at least one of these dose optimization techniques: automated exposure control; mA and/or kV adjustment per patient size (includes targeted exams where dose is matched to clinical indication); or iterative reconstruction. Contrast material: ISOVUE; Contrast volume: 75 ml; Contrast route: IV; REPORTING DATA: Count of CT and Cardiac NM exams in prior 12 months: This patient has received 0 known CTs and 0 known cardiac nuclear medicine studies in the 12 months prior to the current study. COMPARISON: No relevant prior studies available. FINDINGS: Liver: Normal. No mass. Gallbladder and bile ducts: Gallbladder is surgically absent. Pancreas: Normal. No ductal dilation. Spleen: Normal. No splenomegaly. Adrenal glands: Normal. No mass. Kidneys and ureters: Normal. No hydronephrosis. Stomach and bowel: Unremarkable. No obstruction. No mucosal thickening. Appendix: No evidence of appendicitis. Intraperitoneal space: Unremarkable. No free air. No significant fluid collection. Vasculature: Unremarkable. No abdominal aortic aneurysm. Lymph nodes: Unremarkable. No enlarged lymph nodes. Urinary bladder: Unremarkable as visualized. Reproductive: Unremarkable as visualized. Bones/joints: Mild thoracolumbar scoliosis. No vertebral body compression or acute fracture. Soft tissues: Unremarkable. IMPRESSION: No acute abnormality
--- NOTE | 2023-03-28 20:14 | HMH.EDGENADL ---
Discharge Plan Disposition Patient Disposition: Home, Self-Care Condition: Good Prescriptions Prescriptions: New prednisone 50 mg tablet 50 mg PO DAILY 5 Days Qty: 5 0RF No Action atenolol 100 mg tablet 100 mg PO DAILY potassium chloride 10 mEq capsule, extended release 10 meq PO DAILY fluticasone propionate 50 mcg/actuation spray,suspension 1 - 2 spray intranasal DAILY Rx Instructions: use in each nostril albuterol sulfate [ProAir HFA] 90 mcg/actuation HFA aerosol inhaler 1 - 2 puff inhalation Q6HP PRN (Reason: Shortness Of Breath) Rx Instructions: PT STATES SHE DOESNT USE ergocalciferol (vitamin D2) 1,250 mcg (50,000 unit) capsule 1,250 mcg PO WEEKLY omeprazole 40 mg capsule,delayed release(DR/EC) 40 mg PO DAILY linezolid [Zyvox] 600 mg tablet 600 mg PO BID 10 Days Qty: 20 0RF montelukast 10 MG tablet 10 mg PO PM escitalopram oxalate 20 MG tablet 20 mg PO DAILY cetirizine 10 mg tablet 10 mg PO DAILY Patient Comments: TAKE ONE TABLET BY MOUTH EVERY DAY hydrochlorothiazide 12.5 mg capsule 12.5 mg PO DAILY Patient Comments: TAKE ONE CAPSULE BY MOUTH EVERY DAY spironolactone 50 mg tablet 100 mg PO BID Patient Comments: TAKE ONE TABLET BY MOUTH EVERY DAY bupropion HCl 150 mg tablet extended release 24 hr 150 mg PO DAILY Patient Comments: TAKE ONE TABLET BY MOUTH ONCE DAILY fluticasone propion-salmeterol [Advair HFA] 115-21 mcg/actuation HFA aerosol inhaler 2 inh INHALATION BID Patient Comments: INHALE TWO PUFFS BY MOUTH TWICE DAILY Humira(CF) Pen 40 mg/0.4 mL pen injector kit 40 mg SQ WEEKLY metformin 500 mg tablet 1,000 mg PO BID Referrals Follow up/Referrals: Owen Mars MD [Primary Care Provider] - See instructions Activity Restrictions/Add. Instructions Additional Instructions/Restrictions: You were evaluated in the emergency department today. Please picker/puller your prescription and take as prescribed. Follow-up with your primary care provider over the next 4 days for reassessment. Return to the emergency department for any new or worsening symptoms. Clinical Impressions Clinical Impression: Crohn's colitis Instructions Patient Instructions: DI for Acute Abdominal Pain Discharge ED Provider: Una Pierre General Adult HPI General Chief complaint: Abdominal Pain Stated complaint: abd pain Time Seen by Provider: 03/28/23 20:08 Mode of Arrival: Ambulatory Source of Information: Patient Limitations: No Limitations Description of Symptoms (Recalled from ER Triage Doc. by RN): pt c/o abd pain and no BM x 1 week. pt seen pcp yesterday and diagnose with crohn's flare up and prescribed linzes. pt is currently waiting for PA for [facility]. History of Present Illness HPI narrative: This patient is a 42-year-old female who reports a history of Crohn's disease and hidradenitis suppurativa on presenting to the emergency department for evaluation with concern for generalized abdominal pain. Patient reports that she is concerned that she may be having a Crohn's flare, because she is having a lot of burning and pain in her stomach. She states she is also not had a bowel movement in many days now. She cannot member when her last one was. She notes that she is not passing gas. She denies any nausea, vomiting, dysuria, changes in urine output, or other concerns. Related Data Home Medications Medication Instructions Recorded Confirmed montelukast 10 mg tablet 10 mg PO PM Allergy symptoms 05/27/19 03/28/23 atenolol 100 mg tablet 100 mg PO DAILY High blood pressure 11/18/19 03/28/23 potassium chloride 10 mEq 10 meq PO DAILY Supplement 11/18/19 03/28/23 capsule,extended release escitalopram oxalate 20 mg tablet 20 mg PO DAILY Mood 08/24/20 03/28/23 albuterol sulfate 90 mcg/actuation 1 - 2 puff inhalation Q6HP PRN 08/22/21 03/28/23 aerosol inhaler (
[2023-03-28 20:23] LABS: Microscopic, Urine URINE MICROSCOPIC (MICROSCOPIC)
[2023-03-28 20:33] LABS: Appearance,Urine CLEAR (Clear); Bilirubin,Urine Negative (Negative); Blood, Urine TRACE-I (Negative); Color,Urine YELLOW (Yellow); Glucose,Urine (UA) Negative (Negative); Ketones,Urine Negative (Negative); Leukocyte Esterase,Urine TRACE (Negative); Nitrate,Urine Negative (Negative); Protein,Urine Negative (Negative); Specific Gravity, Urine 1.025 (1.005-1.030); Urobilinogen,Urine 0.2 EU/dl (0.2)
[2023-03-28 20:34] LABS: Basophils # 0.1 K/mm3 (0-0.2); Basophils % 0.7 % (0.1-2.0); Eosinophils # 0.4 K/mm3 (0.0-0.4); Eosinophils % 3.3 % (0.1-12.0); Hemoglobin 12.1 g/dL (12.2-16.2); Lymphocytes # 3.5 K/mm3 (0.7-4.5); Mean Corpuscular HGB Conc 33.6 g/dL (31.8-35.4); Mean Corpuscular Hemoglobin 32.2 pg (27.0-31.2); Mean Corpuscular Volume 95.7 fl (81-99); Mean Platelet Volume 8.1 fl (7.4-10.4); Monocytes # 0.7 K/mm3 (0.1-1.0); Monocytes % 5.1 % (1.7-9.3); Neutrophils # 8.6 K/mm3 (1.8-7.8); Neutrophils % 64.9 % (37.0-80.0); Platelet Count 405 K/mm3 (142-424); Red Blood Count 3.76 M/mm3 (4.20-5.40); Red Cell Distribution Width 12.8 % (11.5-17.5); White Blood Count 13.3 K/mm3 (4.8-10.8)
[2023-03-28 20:53] LABS: Alanine Aminotransferase 19 U/L (12-78); Albumin Level 4.2 g/dl (3.5-5.0); Alkaline Phosphatase 94 U/L (38-126); Anion Gap 16.5 mEq/L (5-15); Aspartate Amino Transferase 32 U/L (14-36); Bilirubin,Total 0.2 mg/dl (0.2-1.3); Blood Urea Nitrogen 8 mg/dl (7-17); Calcium 8.9 mg/dl (8.4-10.2); Carbon Dioxide 24 mmol/L (22.0-30.0); Chloride 102 mmol/L (98-107); Creatinine Clearance Estimated 153 mL/min (50-200); Estimated Glomerular Filt Rate 93 ml/min (>60); GFR (African American) 112 ML/MIN (>60); Globulin 4.2 g/dL (1.3-3.2); Glucose 89 mg/dl (74-100); Lipase 85 U/L (23-300); Potassium 3.5 mmoL/L (3.5-5.1); Sodium 139 mmol/L (136-145); Total Protein,Serum 8.4 g/dl (6.3-8.2)
[2023-03-28 20:57] LABS: Bacteria,Urine Trace /lpf; RBC,Urine Occasional #/hpf (0-3)
[2023-03-28 22:19] VITALS: BP 121/73; PULSE 74; RESP 16; TEMP 36.8; O2SAT 98
== END 2023-03-28 22:19 | disposition home or self-care (01) ==
PROVIDERS: Emergency Provider Emergency Medicine; PCP Internal Medicine Adolescent Medicine
DX: R10.84 Generalized abdominal pain (principal); K50.10 Crohn's disease of large intestine without complications; L73.2 Hidradenitis suppurativa; I10 Essential (primary) hypertension; J45.909 Unspecified asthma, uncomplicated
CPT/HCPCS: 74177; 80053; 81001; 83690; 85025; 96361; 96374; 96375; 99284; J0131; Q9967

== ENCOUNTER 2023-07-04 09:50 | Outpatient (CLI) | payer OTHER, SELFPAY ==
[2023-07-04 10:22] LABS: Basophils # 0.1 K/mm3 (0-0.2); Basophils % 0.6 % (0.1-2.0); Eosinophils # 0.4 K/mm3 (0.0-0.4); Eosinophils % 3.5 % (0.1-12.0); Hematocrit 36.4 % (37.0-47.0); Hemoglobin 12.3 g/dL (12.2-16.2); Lymphocytes # 3.1 K/mm3 (0.7-4.5); Lymphocytes % 29.1 % (10-50); Mean Corpuscular HGB Conc 33.9 g/dL (31.8-35.4); Mean Corpuscular Hemoglobin 31.8 pg (27.0-31.2); Mean Corpuscular Volume 93.9 fl (81-99); Mean Platelet Volume 7.6 fl (7.4-10.4); Monocytes # 0.6 K/mm3 (0.1-1.0); Monocytes % 5.3 % (1.7-9.3); Neutrophils # 6.4 K/mm3 (1.8-7.8); Neutrophils % 61.4 % (37.0-80.0); Platelet Count 428 K/mm3 (142-424); Red Blood Count 3.87 M/mm3 (4.20-5.40); Red Cell Distribution Width 13.1 % (11.5-17.5); White Blood Count 10.5 K/mm3 (4.8-10.8)
[2023-07-04 11:00] LABS: Alanine Aminotransferase 18 U/L (12-78); Albumin Level 4.1 g/dl (3.5-5.0); Albumin/Globulin Ratio 1.2 (1.1-1.8); Alkaline Phosphatase 75 U/L (38-126); Anion Gap 11.1 mEq/L (5-15); Aspartate Amino Transferase 20 U/L (14-36); Bilirubin,Total 0.2 mg/dl (0.2-1.3); Blood Urea Nitrogen 11 mg/dl (7-17); Carbon Dioxide 28 mmol/L (22.0-30.0); Chloride 104 mmol/L (98-107); Chol/HDL Ratio 5.3 (1-3.5); Cholesterol 144 mg/dl (140-200); Estimated Glomerular Filt Rate 79 ml/min (>60); GFR (African American) 96 ML/MIN (>60); Globulin 3.4 g/dL (1.3-3.2); Glucose 98 mg/dl (74-100); HDL Cholesterol 27 mg/dl (40-60); Potassium 4.1 mmoL/L (3.5-5.1); Sodium 139 mmol/L (136-145); Total Protein,Serum 7.5 g/dl (6.3-8.2); Triglycerides 107 mg/dl (30-150); VLDL Cholesterol 21 mg/dL (0-40)
[2023-07-04 11:11] LABS: Direct LDL Cholesterol 98.02 mg/dL (100-129)
== END 2023-07-04 23:59 ==
LOC: LAB 09:50
PROVIDERS: Obstetrics & Gynecology; PCP Internal Medicine Adolescent Medicine; Visit Provider Nurse Practitioner Obstetrics & Gynecology
DX: Z01.419 Encounter for gynecological examination (general) (routine) without abnormal findings (principal)
CPT/HCPCS: 36415; 80053; 80061; 85025

== ENCOUNTER 2023-07-08 16:26 | Outpatient (CLI) | payer OTHER, SELFPAY ==
--- NOTE | 2023-07-08 16:30 | MM_ITS ---
PROCEDURE INFORMATION: Exam: MG Bilateral Screening 3D Mammography Exam date and time: 07/08/2023 4:15 PM Age: 43 years old Clinical indication: Screening. No family history of breast cancer. TECHNIQUE: Imaging protocol: Bilateral Screening tomosynthesis and 2D mammography including computer-aided detection (CAD) when performed. COMPARISON: 1. MG MM DIG MAMM DX UNILAT LT CAD 07/07/2019 2:42 PM 2. US BREAST LT COMPLETE 07/07/2019 3:20 PM FINDINGS: MAMMOGRAPHY: Breast composition: There are scattered areas of fibroglandular density. Mass: Questionable 0.3 cm masses/oval asymmetry in the inner and upper right breast, middle to posterior thirds, 10-13 cm from the nipple, CC frame 29 and MLO frame 16. Questionable 2.0 cm mass in the inner lower left breast, middle 3rd, 14-15 cm from the nipple, which is superficial and may be related to skin lesions indicated technologist notes. Architectural distortion: None. Calcifications: No suspicious calcifications. Asymmetric density: None. Skin thickening: None. Axillary adenopathy: None. IMPRESSION: Patient be recalled for right diagnostic mammography with spot compression CC and MLO projection and right sonography for further evaluation of questionable right breast masses. Patient will be recalled for left sonography for further evaluation of superficial left breast mass which may be related to the skin and can be correlated clinically as well. ASSESSMENT: BI-RADS Category 0: Incomplete- Need Additional Imaging Evaluation and/or Prior Mammograms for Comparison
== END 2023-07-08 23:59 ==
LOC: RAD 16:26
PROVIDERS: PCP Internal Medicine Adolescent Medicine; Visit Provider Nurse Practitioner Obstetrics & Gynecology
DX: Z12.31 Encounter for screening mammogram for malignant neoplasm of breast (principal)
CPT/HCPCS: 77063; 77067

== ENCOUNTER 2023-07-15 14:31 | Outpatient (CLI) | payer OTHER, SELFPAY ==
--- NOTE | 2023-07-15 14:35 | US_ITS ---
PROCEDURE INFORMATION: Exam: US Right Breast, Complete US Left Breast, Complete MG Right Diagnostic Breast Tomosynthesis Exam date and time: 07/15/2023 3:30 PM Age: 43 years old Clinical indication: Patient recalled on the basis of a screening mammogram for further evaluation; bilateral breast masses TECHNIQUE: Imaging protocol: Complete ultrasound of all four quadrants of the right breast and the retroareolar regions, including ultrasound of the axilla when performed. Complete ultrasound of all four quadrants of the left breast and the retroareolar regions, including ultrasound of the axilla when performed. Right Diagnostic tomosynthesis and 2D mammography including computer-aided detection (CAD) when performed. Unilateral or bilateral exam. COMPARISON: 1. MG MM DIG SCREENING MAMM BI W/CAD 07/08/2023 4:15 PM 2. US BREAST RT COMPLETE 07/15/2023 2:57 PM FINDINGS: MAMMOGRAPHY: Digital diagnostic spot compression views of the right breast and 90 degree lateral view of the right breast demonstrate normal overlapping fibroglandular structures without persistent mass or asymmetry identified. ULTRASOUND: Sonographic images of both breasts including the retroareolar regions, all 4 quadrants and the axilla were obtained Sonographic images of the left 7 o'clock axis 7 cm from the nipple demonstrates a cutaneous ovoid 1.1 cm mass most consistent with a sebaceous cyst and correlating with the mass on mammography. 0.3 cm cyst in the right 5 o'clock axis 6 cm from the nipple. Cutaneous 2.7 cm mass in the right 6 o'clock axis 8 cm from the nipple most consistent with a sebaceous cyst. No other solid or cystic masses noted in either breast. No architectural distortion or acoustical shadowing. No skin thickening or axillary adenopathy IMPRESSION: No mammographic or sonographic evidence of malignancy. Left breast mass corresponds to a cutaneous sebaceous cyst.Annual bilateral mammographic screening is recommended unless otherwise clinically indicated. ASSESSMENT: BI-RADS Category 2: Benign
== END 2023-07-15 23:59 ==
LOC: RAD 14:31
PROVIDERS: PCP Internal Medicine Adolescent Medicine; Visit Provider Nurse Practitioner Obstetrics & Gynecology
DX: R92.8 Other abnormal and inconclusive findings on diagnostic imaging of breast (principal); N63.10 Unspecified lump in the right breast, unspecified quadrant
CPT/HCPCS: 76641; 77061; 77065; G0279

== ENCOUNTER 2023-08-05 14:02 | Outpatient (CLI) | payer OTHER, SELFPAY ==
[2023-08-05 15:27] LABS: Basophils # 0.1 K/mm3 (0-0.2); Basophils % 0.6 % (0.1-2.0); Eosinophils # 0.3 K/mm3 (0.0-0.4); Eosinophils % 2.2 % (0.1-12.0); Hematocrit 36.2 % (37.0-47.0); Hemoglobin 11.6 g/dL (12.2-16.2); Lymphocytes # 2.8 K/mm3 (0.7-4.5); Lymphocytes % 23.2 % (10-50); Mean Corpuscular HGB Conc 32.1 g/dL (31.8-35.4); Mean Corpuscular Hemoglobin 32.4 pg (27.0-31.2); Mean Corpuscular Volume 100.9 fl (81-99); Monocytes # 0.6 K/mm3 (0.1-1.0); Monocytes % 5.2 % (1.7-9.3); Neutrophils # 8.3 K/mm3 (1.8-7.8); Neutrophils % 68.7 % (37.0-80.0); Platelet Count 432 K/mm3 (142-424); Red Blood Count 3.59 M/mm3 (4.20-5.40); Red Cell Distribution Width 13.4 % (11.5-17.5); White Blood Count 12.1 K/mm3 (4.8-10.8)
[2023-08-05 15:40] LABS: Chloride 105 mmol/L (98-107); Potassium 4.1 mmoL/L (3.5-5.1); Sodium 138 mmol/L (136-145)
[2023-08-05 15:43] LABS: Anion Gap 8.1 mEq/L (5-15); Blood Urea Nitrogen 9 mg/dl (7-17); Calcium 8.8 mg/dl (8.4-10.2); Carbon Dioxide 29 mmol/L (22.0-30.0); Estimated Glomerular Filt Rate 69 ml/min (>60); GFR (African American) 83 ML/MIN (>60); Glucose 90 mg/dl (74-100)
== END 2023-08-05 23:59 ==
LOC: LAB 14:02
PROVIDERS: PCP Internal Medicine Adolescent Medicine; Visit Provider Surgery
DX: L02.415 Cutaneous abscess of right lower limb (principal)
CPT/HCPCS: 36415; 80048; 85025

== ENCOUNTER 2023-08-07 10:08 | Day surgery (SDC) | payer OTHER, SELFPAY ==
[2023-08-05 16:43] VITALS: BMI 35.4
[2023-08-07] VITALS (8 sets, daily range): BP systolic 92–133; BP diastolic 58–89; PULSE 69–78; RESP 16; TEMP 36.4–36.5; O2SAT 93–98
--- NOTE | 2023-08-07 10:58 | P.PNANES_ITS ---
[facility] Disclaimer: The information contained in this section may have been updated after the patient was seen, as this information can be updated by other users. Medical History Hidradenitis suppurativa Anemia Anxiety Cancer Asthma Hypertension Surgical History History of colonoscopy History of incision and drainage History of tympanostomy tube placement History of tonsillectomy History of cholecystectomy History of section History of appendectomy Family History Other Diabetes Hypertension Social History Smoking Status: Never smoker second hand exposure: Yes alcohol intake: never substance use type: denies use current occupational status: employed Travel in the last 8 weeks: None household members: spouse and children housing: house caffeine: Yes [facility] Anesthesia Checklist Patient Identification Patient Identification: Arm Band Structural Data Admitted From: Home Planned Operative Procedure/s: I&D Right Thigh Abscess Consent for Planned Operative Procedure(s) Verified: Yes Verified Documents: Surgical Consent and History and Physical NPO Status Verified Time NPO: 00:00 Additional verifications Anesthesia Reactions: No Hx Blood Transfusions: No Blood Transfusion Reaction: No Airway Assessment Mallampati Score:: Class II C-Spine Mobility Assessed: Yes TMJ Mobility Assessed: Yes Dentition: Good Dentition Neurological Assessment Level of Consciousness: Awake and Alert Anesthesia Plan Anesthesia Risk discussed: Yes Anesthesia Plan: Verified ASA Class: II Anesthesia Type: General
[2023-08-07 11:00] LABS: Urine Pregnancy, HCG Qual. Negative (Negative)
[2023-08-07] MEDS: CLINDAMYCIN PHOSPHATE/D5W 900 MG/50 ML PIGGYBACK 106 MG IV (11:35)
[2023-08-07] MEDS: LIDOCAINE 1% 10ML MDV 10 ML (11:50)
[2023-08-07] MEDS: ROPIVACAINE 0.5% 30ML VIAL 150 MG (11:50)
--- NOTE | 2023-08-07 11:58 | EXP.OP.NOTE ---
Date of procedure: 08/07/23 Pre-op Diagnosis:: Soft tissue infection right posterior thigh Post-op Diagnosis:: Same Procedure performed:: Incision and drainage right posterior thigh abscess with debridement of skin and subcutaneous tissues Surgeon:: Angel Edward MD GLASS CUTTER HELPER:: Parish Mosqueda Anesthesia: LMA Estimated blood loss (mL): 3 Clinical Note:: . Patient presents for incision and drainage with debridement of right posterior thigh abscess. She has had multiple soft tissue infections/abscesses requiring operative intervention. She has had some episodes of soft tissue infection amenable to nonoperative intervention. She had an area on the back of the right thigh began to flareup about 2 weeks ago. It had persisted and progressed. She was seen in her primary care provider's office 2 days ago. It was felt that this area was beyond the capabilities of local incision and drainage and she was asked to be seen by surgery. She had been taking Levaquin. She was started on Bactrim after she was seen by her primary care provider. When I saw her in the office 48 hours ago plan was made for incision and drainage. She is given prescription for Zyvox. She has not started this as initially there was insurance approval needed. She does state that the area had opened but she has not had any drainage. She asked about an area which has subsequently. Since she was seen in the office 48 hours ago on the right hip. This seems to be some focal erythema with minimal induration but no fluctuance. Recommendations were to continue the antibiotic for this but it could need incision and drainage in the future if progressive or refractory. . Operative findings:: Consistent with focal folliculitis versus subcutaneous abscess. Operative note:: Consent was obtained patient was taken to the operating room. She was positioned in supine position. General anesthesia was induced via LMA. She was positioned in lateral position. The area was prepped and draped. Limited incision was made around the area which had opened using electrocautery. There was some mildly purulent subcutaneous tissues. Cultures were sent. Skin and subcutaneous tissue was excised. There was some more widespread cellulitis and induration but no definite evidence of any undrained infection. Wound was thoroughly probed with hemostat to break up any loculations. Hemostasis was achieved electrocautery. Local anesthetic was infiltrated. Wound was packed with dry gauze. It was covered with clean dry sterile dressing. Plan for outpatient dressings with dry packing at least once daily. Recommend Zyvox for this abscess as well as the soft tissue infection more proximally on the hip area. Condition: stable Disposition: PACU Complications:: None immediately apparent
--- NOTE | 2023-08-07 12:04 | EXP.ANES.I ---
[facility] Anesthesia Record Part I Anesthesia Record I Intake, IV Amount: 500 Hydration: Adequate Estimated blood loss (mL): 5 Urine output (mL): 0 Blood Products used (#): none Blood Pressure: 92/58 SaO2: 93 Pulse Rate: 69 Airway Patency: Patent Respiratory Rate: 16 Temperature: 97.7 F Patient is:: Drowsy and Stable Stable to PACU at:: 12:00
--- NOTE | 2023-08-08 13:37 | EXP.ANES.II ---
[facility] Anesthesia Record Part II Anesthesia Record Part II Discharge Time: 12:30 Destination: Surgical Day Care (OP Surgery) PACU nurse assessment reviewed?: Yes Patient Condition:: Good Anesthesia Complications:: None Swallowing reflex intact?: Yes Airway Patency: Patent Cyanosis?: No Blood Pressure: 133/89 SaO2: 97 Respiratory Rate: 16 Pulse Rate: 71 Temperature: 97.7 F Mental Status: Alert & Oriented Pain level:: 0 Nausea and/or vomitting:: None Intake, IV Amount: 0 Hydration: Adequate
[2023-08-08 13:38] VITALS: BP 133/89; PULSE 71; RESP 16; TEMP 36.5; O2SAT 97
== END 2023-08-07 12:50 | disposition home or self-care (01) ==
PROVIDERS: PCP Nurse Practitioner Family; Visit Provider Surgery
PROC: (CPT 10061; principal; 2023-08-07 11:30)
DX: L97.119 Non-pressure chronic ulcer of right thigh with unspecified severity (principal); L73.8 Other specified follicular disorders; L03.115 Cellulitis of right lower limb
CPT/HCPCS: 10061; 81025; 87070; 87075; 87205; 96374; J2405

== ENCOUNTER 2023-09-05 15:34 | Outpatient (CLI) | payer OTHER, SELFPAY ==
--- NOTE | 2023-09-05 15:37 | US_ITS ---
PROCEDURE: US TRANSVAGINAL CLINICAL INDICATION: abnormal vaginal bleeding COMPARISON: CT CT ABDOMEN PELVIS W CON from 03/28/2023 FINDINGS: Transvaginal sonographic images of the pelvis were obtained. UTERUS: 7.3cm x 4.3cmx 3.5 cm anteverted with a combined endometrial thickness of 3.7mm. There is a small nabothian cyst measuring 4 mm. A scar is seen. A 5.9 mm hyperechoic area is seen in the anterior endometrium. Possible polyp. LEFT OVARY: 3.7 cmx1.6 cmx2.1cm with a volume of 6.6ml. There is a follicle measuring 2.4 cm x 2.4 cm x 1.3 cm. RIGHT OVARY: 2.6 cmx 1.8 cmx1.3cm with a volume of 3.2ml. Both ovaries are seen and appear normal. Doppler flow to both ovaries are seen. There is no fluid in the cul-de-sac. IMPRESSION: 1. Anteverted uterus normal in shape and size. The endometrium is thin. 2. There appears to be a small 5 mm anterior polyp in the endometrium. 3. Both ovaries are seen and appear normal. There is a 2.4 cm follicle in the left ovary. 4. No fluid in the cul-de-sac. Dictated by: Reji Ivory MD 09/06/2023 08:46 Reji Ivory MD in OV 09/06/2023 08:46
== END 2023-09-05 23:59 | disposition home or self-care (01) ==
LOC: RAD 15:36
PROVIDERS: PCP Internal Medicine Adolescent Medicine; Visit Provider Nurse Practitioner Obstetrics & Gynecology
DX: N93.9 Abnormal uterine and vaginal bleeding, unspecified (principal)
CPT/HCPCS: 76830

== ENCOUNTER 2023-10-05 13:57 | Emergency (ER) | payer OTHER, SELFPAY ==
[2023-10-05 14:00] VITALS: BP 142/85; PULSE 75; RESP 16; TEMP 36.7; O2SAT 95; BMI 36.0
--- NOTE | 2023-10-05 14:58 | ED_ITS ---
Discharge Plan Disposition Patient Disposition: Home, Self-Care Prescriptions Prescriptions: New ibuprofen 800 mg tablet 800 mg PO TID PRN (Reason: pain) 7 Days Qty: 20 0RF prednisone 50 mg tablet 50 mg PO DAILY 5 Days Qty: 5 0RF Rx Instructions: Please begin 1 day after ED visit cyclobenzaprine 5 mg tablet 5 mg PO TID PRN (Reason: muscle spasm) 5 Days Qty: 15 0RF No Action potassium chloride 10 mEq capsule, extended release 10 meq PO DAILY albuterol sulfate [ProAir HFA] 90 mcg/actuation HFA aerosol inhaler 1 - 2 puff inhalation Q6HP PRN (Reason: Shortness Of Breath) Rx Instructions: PT STATES SHE DOESNT USE ergocalciferol (vitamin D2) 1,250 mcg (50,000 unit) capsule 1,250 mcg PO WEEKLY omeprazole 40 mg capsule,delayed release(DR/EC) 40 mg PO DAILY loratadine 10 mg tablet 10 mg PO DAILY Patient Comments: TAKE ONE TABLET BY MOUTH EVERY DAY spironolactone 100 mg tablet 100 mg PO DAILY fluconazole 150 mg tablet 150 mg PO WEEKLY Qty: 1 11RF Rx Instructions: 1 tablet weekly Premarin 0.625 mg/gram cream 0.3125 mg vaginal DAILY Qty: 30 1RF Rx Instructions: Apply blueberry size amount nightly at bedtime for 14 days followed by twice weekly thereafter montelukast 10 MG tablet 10 mg PO PM escitalopram oxalate 20 MG tablet 20 mg PO DAILY cetirizine 10 mg tablet 10 mg PO DAILY Patient Comments: TAKE ONE TABLET BY MOUTH EVERY DAY bupropion HCl 150 mg tablet extended release 24 hr 150 mg PO DAILY Patient Comments: TAKE ONE TABLET BY MOUTH ONCE DAILY Humira(CF) Pen 40 mg/0.4 mL pen injector kit 40 mg SQ WEEKLY atenolol 50 mg tablet 50 mg PO DAILY Referrals Follow up/Referrals: Owen Mars MD [Primary Care Provider] - See instructions Activity Restrictions/Add. Instructions Additional Instructions/Restrictions: Your symptoms are consistent with sciatica. Please return the emergency department with any of the symptoms we discussed including urinary or bowel incontinence or retention lower extremity weakness/paralysis numbness between your legs high fevers or other concerns. Clinical Impressions Clinical Impression: Sciatica Instructions Patient Instructions: DI for Low Back Pain Discharge ED Provider: Ghulam Rubio General Adult [facility] General Chief complaint: Back Pain/Injury Stated complaint: lower back/front thigh pain Time Seen by Provider: 10/05/23 14:09 Mode of Arrival: Ambulatory Source of Information: Patient Limitations: No Limitations Description of Symptoms (Recalled from ER Triage Doc. by RN): Patient reports possible sciatica pain. States her left lower back is painful and it radiates down the back of her left leg to her knee. States this started on Friday. History of Present Illness HPI narrative: Patient is a 43-year-old female presents today with back pain radiating down the posterior aspect of the left leg. This has been ongoing for the past several days. She denies any urinary or bowel incontinence saddle anesthesia or urinary retention lower extremity weakness fevers chills history of cancer injection drug use. She is on Humira secondary to Crohn's disease but no other significant past medical history. Related Data Home Medications Medication Instructions Recorded Confirmed montelukast 10 mg tablet 10 mg PO PM Allergy symptoms 05/27/19 09/22/23 potassium chloride 10 mEq 10 meq PO DAILY Supplement 11/18/19 09/22/23 capsule,extended release escitalopram oxalate 20 mg tablet 20 mg PO DAILY Mood 08/24/20 09/22/23 albuterol sulfate 90 mcg/actuation 1 - 2 puff inhalation Q6HP PRN 08/22/21 09/22/23 aerosol inhaler (ProAir HFA) Shortness Of Breath ergocalciferol (vitamin D2) 1,250 1,250 mcg PO WEEKLY Supplement 08/22/21 09/22/23 mcg (50,000 unit) capsule adalimumab 40 mg/0.4 mL 40 mg SQ WEEKLY Axillary HS 10/30/22 09/22/23 subcutaneous pen kit (Humira(CF) Pen) bupropion HCl 150 mg 24 hr tablet, 150 mg PO DAILY Mood 10/30/22 09/22/23 extended release cetirizine 10 mg tablet 10 mg PO DAILY Allergies 10/30/22 09/22/23 omeprazole 40 mg capsule,delayed 40 mg PO DAILY 02/06/23 09/22/23 release spironolactone 100 mg tablet 100 mg PO DAILY 07/03/23 09/22/23 atenolol 50 mg tablet 50 mg PO DAILY 08/07/23 09/22/23 loratadine 10 mg tablet 10 mg PO DAILY 09/22/23 09/22/23 Previous Rx's Medication Instructions Recorded fluconazole 150 mg tablet 150 mg PO WEEKLY #1 tab 07/03/23 Premarin 0.625 mg/gram vaginal 0.3125 mg vaginal DAILY #30 grams 07/14/23 cream (conjugated estrogens) cyclobenzaprine 5 mg tablet 5 mg PO TID PRN muscle spasm 5 10/05/23 days #15 tabs ibuprofen 800 mg tablet 800 mg PO TID PRN pain 7 days #20 10/05/23 tabs prednisone 50 mg tablet 50 mg PO DAILY 5 days #5 tabs 10/05/23 Allergies Allergy/AdvReac Type Severity Reaction Status Date / Time Penicillins [PENICILLINS] Allergy Unknown Verified 09/22/23 13:53 tetracycline [TETRACYCLINE] Allergy Unknown Verified 09/22/23 13:53 [facility] Disclaimer: The information contained in this section may have been updated after the patient was seen, as this information can be updated by other users. Medical History (Updated 10/05/23 @ 14:57 by Ghulam Rubio MD) Hidradenitis suppurativa Anemia Anxiety Cancer Asthma Hypertension Surgical History (Updated 09/22/23 @ 13:55 by ISAÍAS Moran) H/O tubal ligation History of colonoscopy History of incision and drainage History of tympanostomy tube placement History of tonsillectomy History of cholecystectomy History of section History of appendectomy Family History Other Diabetes Hypertension Social History Smoking Status: Unknown if ever smoked second hand exposure: Yes alcohol intake: never substance use type: denies use current occupational status: employed Travel in the last 8 weeks: None household members: spouse and children housing: house caffeine: Yes ROS Obtained: Yes All systems reviewed & no additional complaints except as documented Physical Exam General General appearance: alert Respiratory Respiratory exam: Present normal lung sounds bilaterally; Absent respiratory distress Cardiovascular Cardiovascular exam: Present regular rate and normal rhythm Abdominal Exam Abdominal exam: Present soft; Absent distention or tenderness Back Exam Back exam: Present tenderness (No midline tenderness) and straight leg raise (L) (Reproduction of the symptoms with straight leg test with pain radiating down the posterior aspect of her leg) Neurological Exam Neurological exam: Present alert and oriented X3 Medical Decision Making Librado Inquiry Pt receiving controlled substance: No Vital Signs: 10/05/23 14:00 Temperature 98.0 F Temperature Source Oral Pulse Rate [Radial] 75 Respiratory Rate 16 Blood Pressure [Right Arm] 142/85 H Blood Pressure Mean [Right Arm] 104 Blood Pressure Source [Right Arm] Automatic Cuff Blood Pressure Position [Right Arm] Sitting 02 Sat by Pulse Oximetry 95 Oxygen Delivery Method Room Air Orders (Tests/Meds): ED MEDICATIONS Generic Name Dose Route Start Last Admin Trade Name Fouzia PRN Reason Stop Dose Admin Acetaminophen 1,000 mg 10/05/23 14:52 Acetaminophen 500mg Tab PO 10/05/23 14:53 ONCE ONE Cyclobenzaprine HCl 10 mg 10/05/23 14:52 Cyclobenzaprine 10mg Tablet PO 10/05/23 14:53 ONCE ONE Ibuprofen 800 mg 10/05/23 14:52 Ibuprofen 400 Mg Tablet PO 10/05/23 14:53 ONCE ONE Lidocaine 1 each 10/05/23 14:54 Lidocaine 5% Transdermal Patch TP 10/05/23 14:55 ONCE ONE Prednisone 60 mg 10/05/23 14:52 Prednisone 20mg Tab PO 10/05/23 14:53 ONCE ONE Medical Decision Narrative: 43-year-old female with above history and physical who presents today without any red flags of any type of [employer] compression such as cauda equina syndrome. She did state initially that some of the symptoms were radiating to the anterior aspect of her leg and she does wear very tight pants and is obese it is possible this is meralgia paresthetica however most likely given the reproduction of the pain with a straight leg test this is sciatica. I discussed with her the difference and told her to try some mechanical offloading wearing some looser clip fitting close over the next few days. Nonetheless she does not need emergency MRI or any imaging at the moment she was treated symptomatically given return precautions and prescription were sent to her pharmacy she was discharged in stable condition. Critical Care Critical Care Time Critical Care Time: No
[2023-10-05] MEDS: ACETAMINOPHEN 500MG TAB 1000 MG PO (15:03)
[2023-10-05] MEDS: CYCLOBENZAPRINE 10MG TABLET 10 MG PO (15:03)
[2023-10-05] MEDS: LIDOCAINE 5% TRANSDERMAL PATCH 1 EACH TP (15:04)
[2023-10-05] MEDS: predniSONE 20MG TAB 60 MG PO (15:04)
[2023-10-05] MEDS: IBUPROFEN 400 MG TABLET 800 MG PO (15:04)
[2023-10-05 15:12] VITALS: BP 125/84; PULSE 70; RESP 18; TEMP 36.7; O2SAT 97
== END 2023-10-05 15:12 | disposition home or self-care (01) ==
PROVIDERS: Emergency Provider Student in an Organized Health Care Education/Training Program; PCP Internal Medicine Adolescent Medicine
DX: M54.32 Sciatica, left side (principal)
CPT/HCPCS: 99283

== ENCOUNTER 2023-10-29 13:20 | Emergency (ER) | payer OTHER, SELFPAY ==
[2023-10-29 13:25] VITALS: BP 142/95; PULSE 96; RESP 18; TEMP 36.7; O2SAT 97; BMI 35.4
--- NOTE | 2023-10-29 13:40 | EXP.UTC ---
Discharge Plan Disposition Patient Disposition: Home, Self-Care Condition: Good Prescriptions Prescriptions: New nystatin 100,000 unit/gram ointment 1 applic topical TID Qty: 45 0RF No Action potassium chloride 10 mEq capsule, extended release 10 meq PO DAILY Patient Comments: TAKE ONE CAPSULE BY MOUTH EVERY DAY spironolactone 100 mg tablet 100 mg PO DAILY Patient Comments: TAKE ONE TABLET BY MOUTH TWICE DAILY omeprazole 40 mg capsule,delayed release(DR/EC) 40 mg PO DAILY Patient Comments: TAKE ONE CAPSULE BY MOUTH EVERY DAY metformin 1,000 mg tablet 1,000 mg PO DAILY Patient Comments: TAKE ONE TABLET BY MOUTH TWICE DAILY montelukast 10 mg tablet 10 mg PO DAILY Patient Comments: TAKE ONE TABLET BY MOUTH EVERY DAY fluticasone propionate 50 mcg/actuation spray,suspension 2 spray INTRANASAL DAILY Patient Comments: instill 1-2 SPRAY(S) DIRECTED IN EACH NOSTRIL ONCE A DAY atenolol 50 mg tablet 50 mg PO DAILY Patient Comments: TAKE ONE TABLET BY MOUTH EVERY DAY loratadine 10 mg tablet 10 mg PO DAILY Patient Comments: TAKE ONE TABLET BY MOUTH EVERY DAY escitalopram oxalate 20 mg tablet 20 mg PO DAILY Patient Comments: TAKE ONE TABLET BY MOUTH EVERY DAY bupropion HCl 150 mg tablet extended release 24 hr 150 mg PO DAILY Patient Comments: TAKE ONE TABLET BY MOUTH ONCE DAILY fluticasone propion-salmeterol [Advair HFA] 115-21 mcg/actuation HFA aerosol inhaler 2 puff INHALATION BID Patient Comments: INHALE TWO PUFFS BY MOUTH TWICE DAILY --RINSE MOUTH AFTER USE-- Humira(CF) Pen 40 mg/0.4 mL pen injector kit 40 mg SQ WEEKLY Patient Comments: INJECT THE contents of 1 pen (0.4 ML) SUBCUTANEOUSLY ONCE A WEEK DIRECTED Referrals Follow up/Referrals: Owen Mars MD [Primary Care Provider] - See instructions Clinical Impressions Clinical Impression: Sandy albicans infection Instructions Patient Instructions: Yeast Infection-Skin Discharge [place]ha [place] [facility] [place] General Stated complaint: laceration on lower abd Mode of Arrival: Ambulatory Source of Information: Patient Limitations: No Limitations Time Seen by Provider: 10/29/23 13:40 Description of Symptoms (Recalled from Triage Doc. by RN): PATIENT C/O REDNESS AND IRRITATION TO LOWER ABDOMINAL AREA AND STATES TODAY THE SKIN TO THE LEFT OF THE AREA SPLIT HEENT Symptoms (Recalled from RN notes): No Resp Symptoms (Recalled from RN notes): No Skin Symptoms (Recalled from RN notes): Yes MS Symptoms (Recalled from RN notes): No Functional Status (Recalled from RN notes): WNL History of Present Illness Provider Complaint: Pt reports that she has redness and irritation under her abdominal skin fold that has an area that has split open. Related Data Home Medications Medication Instructions Recorded Confirmed adalimumab 40 mg/0.4 mL 40 mg SQ WEEKLY 10/29/23 10/29/23 subcutaneous pen kit (Humira(CF) Pen) atenolol 50 mg tablet 50 mg PO DAILY 10/29/23 10/29/23 bupropion HCl 150 mg 24 hr tablet, 150 mg PO DAILY 10/29/23 10/29/23 extended release escitalopram oxalate 20 mg tablet 20 mg PO DAILY 10/29/23 10/29/23 fluticasone propionate 115 2 puff inhalation BID 10/29/23 10/29/23 mcg-salmeterol 21 mcg/actuation HFA inhaler (Advair HFA) fluticasone propionate 50 2 spray intranasal DAILY 10/29/23 10/29/23 mcg/actuation nasal spray,suspension loratadine 10 mg tablet 10 mg PO DAILY 10/29/23 10/29/23 metformin 1,000 mg tablet 1,000 mg PO DAILY 10/29/23 10/29/23 montelukast 10 mg tablet 10 mg PO DAILY 10/29/23 10/29/23 omeprazole 40 mg capsule,delayed 40 mg PO DAILY 10/29/23 10/29/23 release potassium chloride 10 mEq 10 meq PO DAILY 10/29/23 10/29/23 capsule,extended release spironolactone 100 mg tablet 100 mg PO DAILY 10/29/23 10/29/23 Previous Rx's Medication Instructions Recorded nystatin 100,000 unit/gram topical 1 applic topical TID #45 grams 10/29/23 ointment Allergies Allergy/AdvReac Type Severity Reaction Status Date / Time Penicillins [PENICILLINS] Allergy Unknown Verified 09/22/23 13:53 tetracycline [TETRACYCLINE] Allergy Unknown Verified 09/22/23 13:53 Worker's Comp Is this a Worker's Comp case?: No [facility] PFS Disclaimer: The information contained in this section may have been updated after the patient was seen, as this information can be updated by other users. Medical History (Updated 10/29/23 @ 13:47 by Radha Rodriguez APRN) Hidradenitis suppurativa Anemia Anxiety Cancer Asthma Hypertension Surgical History (Updated 09/22/23 @ 13:55 by ISAÍAS Moran) H/O tubal ligation History of colonoscopy History of incision and drainage History of tympanostomy tube placement History of tonsillectomy History of cholecystectomy History of section History of appendectomy Family History Other Diabetes Hypertension Social History Smoking Status: Unknown if ever smoked second hand exposure: Yes alcohol intake: never substance use type: denies use current occupational status: employed Travel in the last 8 weeks: None household members: spouse and children housing: house caffeine: Yes ROS Obtained: Yes All systems reviewed & no additional complaints except as documented Constitutional Constitutional: Reports system reviewed and no additional complaints, except as documented Eyes Eyes: Reports system reviewed and no additional complaints, except as documented ENT Ears, Nose, Mouth, and Throat: Reports system reviewed and no additional complaints, except as documented Cardiovascular Cardiovascular: Reports system reviewed and no additional complaints, except as documented Respiratory Respiratory: Reports system reviewed and no additional complaints, except as documented Gastrointestinal Gastrointestingal: Reports system reviewed and no additional complaints, except as documented Genitourinary Female Genitourinary: Reports system reviewed and no additional complaints, except as documented Integumentary/Breasts Skin/Breast: Reports system reviewed and no additional complaints, except as documented, Reports redness, Reports lesions and Reports rash Neurologic Neurologic: Reports system reviewed and no additional complaints, except as documented Endocrine Endocrine: Reports system reviewed and no additional complaints, except as documented Hematologic/Lymphatic Henatologic/Lymphatic: Reports system reviewed and no additional complaints, except as documented Allergic/Immunologic Allergic/Immunologic: Reports system reviewed and no additional complaints, except as documented Physical Exam General General appearance: alert and in no apparent distress Head Head exam: atraumatic and normocephalic Eye Eye exam: Present normal appearance ENT ENT exam: Present normal exam and normal oropharynx Neck Neck exam: Present normal inspection Chest Chest inspection: Present normal inspection and symmetric chest wall rise Respiratory Respiratory exam: Present normal lung sounds bilaterally Cardiovascular Cardiovascular exam: Present regular rate and normal rhythm Abdominal Exam Abdominal exam: Present soft and normal bowel sounds Extremities Exam Extremities exam: Present normal inspection Back Exam Back exam: Present normal inspection Neurological Exam Neurological exam: Present alert and oriented X3 Psychiatric Psychiatric exam: Present normal affect and normal mood Skin Skin exam: Present rash Expanded Skin Exam Type of lesion: Present rash Distribution: abdomen Description: Present erythematous and swelling Lymphatic Lymphatic Findings: no adenopathy Medical Decision Making Librado Inquiry Pt receiving controlled substance: No Librado was queried for this patient: No Vital Signs: 10/29/23 13:25 Temperature 98.0 F Temperature Source Oral Pulse Rate [Left Brachial] 96 H Respiratory Rate 18 Blood Pressure [Left Arm] 142/95 H Blood Pressure Mean [Left Arm] 110 Blood Pressure Source [Left Arm] Automatic Cuff Blood Pressure Position [Left Arm] Sitting 02 Sat by Pulse Oximetry 97 Oxygen Delivery Method Room Air
[2023-10-29 13:45] VITALS: BP 142/95; PULSE 96; RESP 18; TEMP 36.7; O2SAT 97
== END 2023-10-29 13:48 | disposition home or self-care (01) ==
PROVIDERS: Emergency Provider Nurse Practitioner Family; PCP Internal Medicine Adolescent Medicine
DX: B37.2 Candidiasis of skin and nail (principal)
CPT/HCPCS: 99212; 99214; G0463

== ENCOUNTER 2023-11-17 11:29 | Outpatient (CLI) | payer OTHER, SELFPAY ==
[2023-11-17 11:53] LABS: Basophils # 0.1 K/mm3 (0-0.2); Eosinophils # 0.3 K/mm3 (0.0-0.4); Eosinophils % 1.9 % (0.1-12.0); Hematocrit 39.4 % (37.0-47.0); Hemoglobin 13.1 g/dL (12.2-16.2); Lymphocytes # 3.5 K/mm3 (0.7-4.5); Lymphocytes % 26.3 % (10-50); Mean Corpuscular HGB Conc 33.2 g/dL (31.8-35.4); Mean Corpuscular Hemoglobin 32.4 pg (27.0-31.2); Mean Corpuscular Volume 97.6 fl (81-99); Mean Platelet Volume 7.9 fl (7.4-10.4); Monocytes # 0.7 K/mm3 (0.1-1.0); Monocytes % 4.9 % (1.7-9.3); Neutrophils # 8.7 K/mm3 (1.8-7.8); Neutrophils % 65.8 % (37.0-80.0); Platelet Count 476 K/mm3 (142-424); Red Blood Count 4.04 M/mm3 (4.20-5.40); Red Cell Distribution Width 13.9 % (11.5-17.5); White Blood Count 13.2 K/mm3 (4.8-10.8)
[2023-11-17 12:10] LABS: Chloride 102 mmol/L (98-107); Potassium 4.6 mmoL/L (3.5-5.1); Sodium 139 mmol/L (136-145)
[2023-11-17 12:12] LABS: Blood Urea Nitrogen 13 mg/dl (7-17); Estimated Glomerular Filt Rate 61 ml/min (>60); GFR (African American) 74 ML/MIN (>60)
[2023-11-17 12:13] LABS: Alanine Aminotransferase 20 U/L (12-78); Albumin Level 4.3 g/dl (3.5-5.0); Albumin/Globulin Ratio 1.1 (1.1-1.8); Alkaline Phosphatase 83 U/L (38-126); Anion Gap 15.6 mEq/L (5-15); Aspartate Amino Transferase 24 U/L (14-36); Bilirubin,Total 0.4 mg/dl (0.2-1.3); Calcium 9.6 mg/dl (8.4-10.2); Carbon Dioxide 26 mmol/L (22.0-30.0); Globulin 3.8 g/dL (1.3-3.2); Glucose 101 mg/dl (74-100); Total Protein,Serum 8.1 g/dl (6.3-8.2)
[2023-11-17 12:40] LABS: HCG,Quantitative < 2 mIU/ml (0-5.42)
== END 2023-11-17 23:59 | disposition home or self-care (01) ==
LOC: LAB 11:30
PROVIDERS: PCP Internal Medicine Adolescent Medicine; Visit Provider Nurse Practitioner Obstetrics & Gynecology
DX: Z01.818 Encounter for other preprocedural examination (principal); N93.9 Abnormal uterine and vaginal bleeding, unspecified
CPT/HCPCS: 36415; 80053; 84702; 85025

== ENCOUNTER 2023-11-19 06:18 | Day surgery (SDC) | payer OTHER, SELFPAY ==
[2023-11-17 12:14] VITALS: BMI 35.1
--- NOTE | 2023-11-18 11:37 | SUR.PREOP ---
Spoke to MD Ivory regarding pt's elevated WBC in preop labs. is fine with proceeding with surgery
[2023-11-19] VITALS (10 sets, daily range): BP systolic 112–166; BP diastolic 59–104; PULSE 68–81; RESP 12–18; TEMP 36.2–36.8; O2SAT 92–100
[2023-11-19] MEDS: LACTATED RINGERS 1000ML 1,000 ML 25 ML IV (06:34)
--- NOTE | 2023-11-19 07:09 | EXP.ANES.CKL ---
[facility] Disclaimer: The information contained in this section may have been updated after the patient was seen, as this information can be updated by other users. Medical History Hidradenitis suppurativa Anemia Anxiety Cancer Asthma Hypertension Surgical History H/O tubal ligation History of colonoscopy History of incision and drainage History of tympanostomy tube placement History of tonsillectomy History of cholecystectomy History of section History of appendectomy Family History Other Diabetes Hypertension Social History Smoking Status: Former smoker tobacco type: cigarettes packs per day: 1 second hand exposure: Yes alcohol intake: never substance use type: denies use current occupational status: employed Travel in the last 8 weeks: None household members: spouse and children housing: house caffeine: Yes [facility] Anesthesia Checklist Patient Identification Patient Identification: Arm Band, Family and Verbal (Name & ) Structural Data Admitted From: Home Planned Operative Procedure/s: Hysteroscopy, D&C, Myosure, Novasure ablation Consent for Planned Operative Procedure(s) Verified: Yes Verified Documents: Surgical Consent and History and Physical NPO Status Verified Time NPO: 20:00 Chart Verification Results Verified: CBC, BMP, ECG, Chest Xray and HCG Additional verifications Patient : No Anesthesia Reactions: No Hx Blood Transfusions: No Blood Transfusion Reaction: No Cardiovascular Assessment Heart Sounds: S1 & S2 Pulse Rhythm: Irregular Peripheral Edema: No Airway Assessment Mallampati Score:: Class II C-Spine Mobility Assessed: Yes (FROM) TMJ Mobility Assessed: Yes Dentition: Good Dentition (Nothing loose per pt.) Neurological Assessment Level of Consciousness: Awake, Alert, Appropriate and Follows Commands Hx Seizures: No Numbness or tingling in extremities: No Anesthesia Plan Anesthesia Risk discussed: Yes Anesthesia Plan: Verified ASA Class: III Anesthesia Type: General
[2023-11-19] MEDS: CLINDAMYCIN PHOSPHATE/D5W 900 MG/50 ML PIGGYBACK 100 MG IV (07:21)
[2023-11-19] MEDS: RINGERS SOLUTION,LACTATED 3,000 ML 25 ML IR (07:35)
[2023-11-19] MEDS: ROPIVACAINE 0.5% 30ML VIAL 150 MG (07:35)
--- NOTE | 2023-11-19 08:11 | P.PNANES_ITS ---
[facility] Anesthesia Record Part I Anesthesia Record I Intake, IV Amount: 500 Hydration: Adequate Estimated blood loss (mL): 50 Urine output (mL): 0 Blood Products used (#): none Blood Pressure: 136/102 SaO2: 92 Pulse Rate: 77 Airway Patency: Patent Respiratory Rate: 16 Temperature: 97.4 F Patient is:: Drowsy, Oral/Nasal airway (9.0 oral airway) and Stable Stable to PACU at:: 08:10
--- NOTE | 2023-11-19 08:28 | P.OP_ITS ---
Date of procedure: 11/19/23 Pre-op Diagnosis:: Menorrhagia, polyp Post-op Diagnosis:: Menorrhagia, polyp Procedure performed:: Hysteroscopy, MyoSure polypectomy, dilation and curettage, NovaSure ablation Surgeon:: Reji Ivory MD WATER PROJECT ENGINEER:: Lakeisha Fisher Anesthesia: LMA Estimated blood loss (mL): 50 Clinical Note:: She is a 43-year-old lady who complains of heavy periods. An ultrasound showed that she had what appears to be a polyp within the endometrial cavity. She expressed desire for NovaSure ablation as well. Operative findings:: She had 1 cm anterior polyp within the uterine cavity. The rest of the endometr ium appeared lush. The uterus sounded to 7 cm. Operative note:: She was taken to the operating room where LMA anesthesia was found be adequate. She was prepped and draped in the normal sterile fashion in the lithotomy position. A weighted speculum was placed in the vagina and the anterior lip of the cervix was grasped with a tenaculum. The cervix was then dilated to approximately 6 mm. I then inserted a MyoSure hysteroscope into the uterine cavity and the findings were as previously dictated. Using the MyoSure device I was able to shave off the 1 cm anterior polyp. I then performed a gentle curettage with a medium curette. I then sounded the uterus and determine the length of the uterus. I then inserted the NovaSure device and determine the width of the endometrial cavity. The endometrial cavity was found to be 5.5 cm long and 3.8 cm wide. This was placed into the NovaSure device. I then ran the device through its program. I further inspected the endometrial cavity and was found to be completely charred. I then injected 20 cc of 0.5% ropivacaine at the 3:00, 5:00, 7:00, and 9:00 positions of the cervix. She tolerated procedure well and was taken to the recovery room in excellent condition. All sponge and instrument counts were correct. The estimated blood loss was less than 50 cc. Condition: stable Disposition: PACU Specimens:: Endometrial curettings, endometrial polyp Complications:: None
--- NOTE | 2023-11-19 09:15 | EXP.ANES.II ---
[facility] Anesthesia Record Part II Anesthesia Record Part II Discharge Time: 08:35 Destination: Surgical Day Care (OP Surgery) PACU nurse assessment reviewed?: Yes Patient Condition:: Good Anesthesia Complications:: None Swallowing reflex intact?: Yes Airway Patency: Patent Cyanosis?: No Blood Pressure: 166/59 SaO2: 96 Respiratory Rate: 16 Pulse Rate: 81 Temperature: 97.2 F Mental Status: Alert & Oriented Pain level:: 0 Nausea and/or vomitting:: None Intake, IV Amount: 500 Hydration: Adequate
== END 2023-11-19 09:19 | disposition home or self-care (01) ==
PROVIDERS: PCP Internal Medicine Adolescent Medicine; Visit Provider Nurse Practitioner Obstetrics & Gynecology
PROC: (CPT 58563; principal; 2023-11-19 07:30)
DX: N92.0 Excessive and frequent menstruation with regular cycle (principal); N84.0 Polyp of corpus uteri
CPT/HCPCS: 58563; 96374; J1100; J1885; J2250; J2405; J3010; J7120

== ENCOUNTER 2024-01-15 11:13 | Outpatient (CLI) | payer OTHER, SELFPAY | END 2024-01-15 23:59 | disposition home or self-care (01) | LOC: LAB.DROPOF 01-20 11:14 | PROVIDERS: PCP Internal Medicine Adolescent Medicine; Visit Provider Nurse Practitioner | DX: H92.12 Otorrhea, left ear (principal) | CPT/HCPCS: 87070; 87077 ==

== ENCOUNTER 2024-02-17 13:15 | Outpatient (POV) | payer OTHER, SELFPAY | END 2024-02-17 23:59 | disposition home or self-care (01) | LOC: SC 13:16 | PROVIDERS: Visit Provider Specialist/Technologist | DX: H92.12 Otorrhea, left ear (principal) | CPT/HCPCS: 87070; 87077 ==

== ENCOUNTER 2024-03-03 15:32 | Outpatient (CLI) | payer OTHER, SELFPAY ==
[2024-03-03 15:58] VITALS: BMI 35.5
[2024-03-03 16:17] LABS: Basophils # 0.1 K/mm3 (0-0.2); Basophils % 0.9 % (0.1-2.0); Eosinophils # 0.3 K/mm3 (0.0-0.4); Eosinophils % 2.9 % (0.1-12.0); Hematocrit 35.5 % (37.0-47.0); Lymphocytes # 2.7 K/mm3 (0.7-4.5); Lymphocytes % 23.9 % (10-50); Mean Corpuscular HGB Conc 33.8 g/dL (31.8-35.4); Mean Corpuscular Hemoglobin 31.4 pg (27.0-31.2); Monocytes # 0.7 K/mm3 (0.1-1.0); Monocytes % 6.1 % (1.7-9.3); Neutrophils # 7.5 K/mm3 (1.8-7.8); Neutrophils % 66.2 % (37.0-80.0); Platelet Count 395 K/mm3 (142-424); Red Blood Count 3.82 M/mm3 (4.20-5.40); Red Cell Distribution Width 12.9 % (11.5-17.5); White Blood Count 11.3 K/mm3 (4.8-10.8)
[2024-03-03 16:20] LABS: Chloride 107 mmol/L (98-107)
[2024-03-03 16:21] LABS: Potassium 3.7 mmoL/L (3.5-5.1); Sodium 140 mmol/L (136-145)
[2024-03-03 16:24] LABS: Anion Gap 10.7 mEq/L (5-15); Blood Urea Nitrogen 8 mg/dl (7-17); Calcium 9.3 mg/dl (8.4-10.2); Carbon Dioxide 26 mmol/L (22.0-30.0); Creatinine Clearance Estimated 157 mL/min (50-200); Estimated Glomerular Filt Rate 92 ml/min (>60); GFR (African American) 112 ML/MIN (>60); Glucose 93 mg/dl (74-100)
[2024-03-03 16:50] LABS: HCG Qualitative, Serum Negative (Negative)
== END 2024-03-03 23:59 | disposition home or self-care (01) ==
LOC: PREOP 15:33
PROVIDERS: Nurse Anesthetist, Certified Registered; PCP Nurse Practitioner Family; Visit Provider Obstetrics & Gynecology
DX: Z01.812 Encounter for preprocedural laboratory examination (principal)
CPT/HCPCS: 80048; 84703; 85025

== ENCOUNTER 2024-03-08 06:07 | Day surgery (SDC) | payer OTHER, SELFPAY ==
[2024-03-03 15:56] VITALS: BMI 35.5
[2024-03-08 06:30] VITALS: BP 111/78; PULSE 72; RESP 18; TEMP 36.3; O2SAT 94
[2024-03-08] MEDS: ACETAMINOPHEN 500MG TAB 1000 MG PO (06:43)
[2024-03-08] MEDS: LACTATED RINGERS 1000ML 1,000 ML 25 ML IV (06:43)
--- NOTE | 2024-03-08 07:09 | EXP.ANES.CKL ---
[facility] Disclaimer: The information contained in this section may have been updated after the patient was seen, as this information can be updated by other users. Medical History Yeast vaginitis Vulvar lesion Mixed hearing loss of left ear Normal hearing test of right ear Cerumen impaction Drainage from left ear Hearing difficulty of left ear Recurrent otitis media of left ear Hidradenitis suppurativa Anemia Anxiety Cancer Asthma Hypertension Surgical History H/O tubal ligation History of colonoscopy History of incision and drainage History of tympanostomy tube placement History of tonsillectomy History of cholecystectomy History of section History of appendectomy Family History Other Diabetes Hypertension Social History Smoking Status: Former smoker tobacco type: cigarettes packs per day: 1 second hand exposure: Yes alcohol intake: never substance use type: denies use current occupational status: unemployed Travel in the last 8 weeks: None household members: spouse and children housing: house caffeine: Yes [facility] Anesthesia Checklist Patient Identification Patient Identification: Arm Band and Verbal (Name & ) Structural Data Admitted From: Home Planned Operative Procedure/s: Excision of lesion Consent for Planned Operative Procedure(s) Verified: Yes Verified Documents: Surgical Consent and History and Physical NPO Status Verified Time NPO: 00:00 Chart Verification Results Verified: CBC and BMP Additional verifications Anesthesia Reactions: No Hx Blood Transfusions: No Blood Transfusion Reaction: No Airway Assessment Mallampati Score:: Class III C-Spine Mobility Assessed: Yes TMJ Mobility Assessed: Yes Dentition: Good Dentition Neurological Assessment Level of Consciousness: Awake Hx Seizures: No Numbness or tingling in extremities: No Anesthesia Plan Anesthesia Risk discussed: Yes Anesthesia Plan: Verified ASA Class: II Anesthesia Type: General
[2024-03-08] MEDS: BUPIVACAINE 0.5% 30ML VIAL 150 MG (07:35)
[2024-03-08 07:45] VITALS: BP 104/76; PULSE 66; RESP 16; TEMP 36.8; O2SAT 96
[2024-03-08 08:00] VITALS: BP 109/78; PULSE 67; RESP 16; O2SAT 99
[2024-03-08] MEDS: SILVER NITRATE APPLICATOR 1 EACH TP (08:04)
[2024-03-08 08:15] VITALS: BP 110/83; PULSE 70; RESP 17; TEMP 36.6; O2SAT 99
--- NOTE | 2024-03-08 08:31 | EXP.OP.NOTE ---
Date of procedure: 03/08/24 Pre-op Diagnosis:: 1. Vulvar lesion Post-op Diagnosis:: 1. Vulvar lesion Procedure performed:: Excision of vulvar lesion Surgeon:: Kristel Powell DO Sawyer Cork Slabs(s):: N/A FEATHER EDGER:: David Rosado Anesthesia: MAC Estimated blood loss (mL): 2 Clinical Note:: Mrs Napoleon Guo is a very pleasant 43 yo who presents to [facility] for scheduled procedure. She complains right labia minora lesion. She states the lesion on right labia minora started as a small pimple about 3-4 months ago. It has increased in size to about the size of a pea. She denies pain. Operative findings:: 1. 0.5 cm lesion extending from superior edge of right labia minora that is square in shape with rounded edges, it is darker pink in color Operative note:: Risks, benefits and alternatives were discussed with the patient. Risks include but are not limited to bleeding, infection, and VTE. Patient voiced understanding and agreed to proceed. She was wheeled back to the operating room and placed under MAC without difficulty. She was placed in dorsal lithotomy position and prepped and draped in the normal sterile fashion. Base of lesion was injected with 0.5% marcaine without epinephrine. Allis clamp was used to grasp lesion. Negro scissors were used to excise lesion. Specimen will be sent to pathology for review. Silver nitrate was applied to base of excision. Small amount of oozing remained. 3-0 Chromic suture used to ligate base of lesion with single stitch. Hemostasis was noted. Patient was awaken from anesthesia without difficulty. She was transported to recovery room in stable condition. Patient will be discharged home when awake and ambulating. She was also given instructions to follow-up in the office in 2 weeks. Condition: stable Disposition: same day Specimens:: 1. Vulvar lesion Complications:: None
== END 2024-03-08 08:15 | disposition home or self-care (01) ==
PROVIDERS: PCP Nurse Practitioner Family; Visit Provider Obstetrics & Gynecology
PROC: (CPT 11420; principal; 2024-03-08 07:30)
DX: N90.7 Vulvar cyst (principal)
CPT/HCPCS: 11420; C9144; J2250; J7120

== ENCOUNTER 2024-03-24 12:23 | Outpatient (CLI) | payer OTHER, SELFPAY | END 2024-03-24 23:59 | disposition home or self-care (01) | LOC: LAB 12:24 | PROVIDERS: PCP Nurse Practitioner Family; Visit Provider Obstetrics & Gynecology | DX: Z02.9 Encounter for administrative examinations, unspecified (principal) ==

== ENCOUNTER 2024-03-31 08:49 | Outpatient (CLI) | payer OTHER, SELFPAY ==
[2024-03-31 09:04] LABS: Basophils # 0.2 K/mm3 (0-0.2); Eosinophils # 0.4 K/mm3 (0.0-0.4); Eosinophils % 2.7 % (0.1-12.0); Hemoglobin 12.6 g/dL (12.2-16.2); Lymphocytes # 2.7 K/mm3 (0.7-4.5); Lymphocytes % 18.3 % (10-50); Mean Corpuscular HGB Conc 33.2 g/dL (31.8-35.4); Mean Corpuscular Volume 96.3 fl (81-99); Mean Platelet Volume 7.9 fl (7.4-10.4); Monocytes # 0.8 K/mm3 (0.1-1.0); Monocytes % 5.1 % (1.7-9.3); Neutrophils # 10.9 K/mm3 (1.8-7.8); Neutrophils % 72.8 % (37.0-80.0); Platelet Count 380 K/mm3 (142-424); Red Blood Count 3.95 M/mm3 (4.20-5.40); Red Cell Distribution Width 13.4 % (11.5-17.5); White Blood Count 14.9 K/mm3 (4.8-10.8)
[2024-03-31 09:11] LABS: Alanine Aminotransferase 23 U/L (12-78); Albumin/Globulin Ratio 1.2 (1.1-1.8); Alkaline Phosphatase 66 U/L (38-126); Anion Gap 12.1 mEq/L (5-15); Aspartate Amino Transferase 28 U/L (14-36); Bilirubin,Total 0.4 mg/dl (0.2-1.3); Blood Urea Nitrogen 10 mg/dl (7-17); Calcium 8.8 mg/dl (8.4-10.2); Carbon Dioxide 27 mmol/L (22.0-30.0); Chloride 105 mmol/L (98-107); Estimated Glomerular Filt Rate 79 ml/min (>60); GFR (African American) 96 ML/MIN (>60); Globulin 3.4 g/dL (1.3-3.2); Glucose 92 mg/dl (74-100); Potassium 4.1 mmoL/L (3.5-5.1); Sodium 140 mmol/L (136-145); Total Protein,Serum 7.4 g/dl (6.3-8.2)
[2024-03-31 09:18] LABS: Hemoglobin A1C 5.5 % (4.0-6.0)
[2024-03-31 09:28] LABS: HCG,Quantitative < 2 mIU/ml (0-5.42)
[2024-04-01 11:14] LABS: Insulin Level Total 13.9 uIU/mL (2.6-24.9)
== END 2024-03-31 23:59 | disposition home or self-care (01) ==
PROVIDERS: PCP Nurse Practitioner Family; Visit Provider Obstetrics & Gynecology
DX: N90.89 Other specified noninflammatory disorders of vulva and perineum (principal); B37.2 Candidiasis of skin and nail; B37.31 Acute candidiasis of vulva and vagina; H92.12 Otorrhea, left ear
CPT/HCPCS: 36415; 80053; 83036; 83525; 84702; 85025; 87070; 87077; 87186

== ENCOUNTER 2024-04-02 10:26 | Emergency (ER) | payer OTHER, SELFPAY ==
[2024-04-02 10:27] VITALS: BP 131/96; PULSE 80; RESP 18; TEMP 36.6; O2SAT 97; BMI 34.7
--- NOTE | 2024-04-02 10:35 | HMH.EDGENADL ---
Discharge Plan Disposition Patient Disposition: Home, Self-Care Condition: Good Prescriptions Prescriptions: New clindamycin HCl 300 mg capsule 300 mg PO Q8H 7 Days Qty: 21 0RF No Action cyanocobalamin (vitamin B-12) [Vitamin B-12] 100 mcg tablet 100 mcg PO DAILY cetirizine 10 mg tablet 10 mg PO DAILY Patient Comments: TAKE ONE TABLET BY MOUTH EVERY DAY bupropion HCl 300 mg tablet extended release 24 hr 300 mg PO DAILY Patient Comments: TAKE ONE TABLET BY MOUTH EVERY DAY azelastine 137 mcg (0.1 %) spray,non-aerosol 2 spray intranasal BID Qty: 30 3RF Rx Instructions: administer into each nostril nystatin [Nystop] 100,000 unit/gram powder 0 unit topical DAILY PRN (Reason: prn) Patient Comments: APPLY TOPICALLY TO THE AFFECTED AREA(S) THREE TIMES DAILY FOR FOURTEEN DAYS levocetirizine 5 mg tablet 5 mg PO DAILY Patient Comments: TAKE ONE TABLET BY MOUTH EVERY EVENING Linzess 145 mcg capsule 145 mcg PO DAILY Patient Comments: TAKE ONE CAPSULE BY MOUTH EVERY DAY BEFORE meals FOR constipation fluconazole 150 mg tablet 150 mg PO Q72H Qty: 2 0RF metformin 1,000 mg tablet 1,000 mg PO Patient Comments: TAKE ONE TABLET BY MOUTH TWICE DAILY fluticasone propionate 50 mcg/actuation spray,suspension intranasal Patient Comments: instill 2 SPRAYS IN EACH NOSTRIL EVERY DAY fluticasone propion-salmeterol [Advair HFA] 115-21 mcg/actuation HFA aerosol inhaler inhalation Patient Comments: INHALE TWO PUFFS BY MOUTH TWICE DAILY --RINSE MOUTH AFTER USE-- tobramycin-dexamethasone 0.3-0.1 % drops,suspension 2 drp Eye-Left QID 14 Days Qty: 10 0RF Rx Instructions: Change above route to ear terconazole 0.8 % cream 1 appful vaginal HS 3 Days Qty: 20 8RF Rx Instructions: Apply the terconazole cream twice daily to the affected area. potassium chloride 10 mEq capsule, extended release 10 meq PO DAILY Patient Comments: TAKE ONE CAPSULE BY MOUTH EVERY DAY spironolactone 100 mg tablet 100 mg PO DAILY Patient Comments: TAKE ONE TABLET BY MOUTH TWICE DAILY omeprazole 40 mg capsule,delayed release(DR/EC) 40 mg PO DAILY Patient Comments: TAKE ONE CAPSULE BY MOUTH EVERY DAY montelukast 10 mg tablet 10 mg PO DAILY Patient Comments: TAKE ONE TABLET BY MOUTH EVERY DAY atenolol 50 mg tablet 50 mg PO DAILY Patient Comments: TAKE ONE TABLET BY MOUTH EVERY DAY loratadine 10 mg tablet 10 mg PO DAILY Patient Comments: TAKE ONE TABLET BY MOUTH EVERY DAY escitalopram oxalate 20 mg tablet 20 mg PO DAILY Patient Comments: TAKE ONE TABLET BY MOUTH EVERY DAY Humira(CF) Pen 40 mg/0.4 mL pen injector kit 40 mg SQ WEEKLY Patient Comments: INJECT THE contents of 1 pen (0.4 ML) SUBCUTANEOUSLY ONCE A WEEK DIRECTED Referrals Follow up/Referrals: Jessy Nesbitt APRN [Primary Care Provider] - See instructions Activity Restrictions/Add. Instructions Additional Instructions/Restrictions: I have prescribed a course of antibiotics for your abscess. Please see the attached instructions for care for your wound. Please take antibiotics as directed. Please return with any new or worsening symptoms. Clinical Impressions Clinical Impression: Abscess of skin or subcutaneous tissue Instructions Patient Instructions: DI for Skin Abscess Print Language Print Language: Bulgarian Discharge ED Provider: Freeman Moreno General Adult HPI General Chief complaint: Skin/Abscess/Foreign Body Stated complaint: cyst on bottom Time Seen by Provider: 04/02/24 10:35 History of Present Illness HPI narrative: The patient presents with a chief complaint of a persistent spot on their skin located on their bottom. She reports that the issue has been ongoing for approximately 10 days, possibly up to 2 weeks. The patient has a history of hidradenitis suppurativa (HS) and is uncertain if the current issue is related to her HS. The patient mentions that she has had similar issues in the past, which usually open up and drain, but this particular spot has not drained at all. She expresses frustration with the situation and mentions that she usually has to bandage the affected area when it's about to pop. Additionally, the patient recently completed a course of Amoxicillin for an ear infection, finishing the medication the day before the visit. She has not been on any other antibiotics or daily medications for her HS. The patient also notes surprise at the use of ultrasound to examine the spot, stating that no one has ever used this method before in her experience. Please note that above description of symptoms, in this electronic medical record under categorization of recalled from ER triage doctor by RN are reflective of an initial nursing assessment, however, is not reflective of my full history and physical exam that was personally taken and clarified. Consequentially, this preceding description of symptoms, which may include the patient's categorized chief complaint in the EMR, do not reflect my personal clinical impression, and the ultimate description of history of present illness and patient stated complaints should be deferred to this section of the note. Unless stated otherwise or congruent with this section of the note, additional signs, symptoms, or incongruence should be interpreted as inaccurate with my clinical impression. Related Data Home Medications ?Medication ?Instructions ?Recorded ?Confirmed adalimumab 40 mg/0.4 mL 40 mg SQ WEEKLY 10/29/23 03/31/24 subcutaneous pen kit (Humira(CF) Pen) atenolol 50 mg tablet 50 mg PO DAILY 10/29/23 03/31/24 escitalopram oxalate 20 mg tablet 20 mg PO DAILY 10/29/23 03/31/24 loratadine 10 mg tablet 10 mg PO DAILY 10/29/23 03/31/24 montelukast 10 mg tablet 10 mg PO DAILY 10/29/23 03/31/24 omeprazole 40 mg capsule,delayed 40 mg PO DAILY 10/29/23 03/31/24 release potassium chloride 10 mEq 10 meq PO DAILY 10/29/23 03/31/24 capsule,extended release spironolactone 100 mg tablet 100 mg PO DAILY 10/29/23 03/31/24 bupropion HCl 300 mg 24 hr tablet, 300 mg PO DAILY 11/17/23 03/31/24 extended release cetirizine 10 mg tablet 10 mg PO DAILY 11/17/23 03/31/24 cyanocobalamin (vitamin B-12) 100 100 mcg PO DAILY 11/17/23 03/31/24 mcg tablet (Vitamin B-12) levocetirizine 5 mg tablet 5 mg PO DAILY 02/02/24 03/31/24 linaclotide 145 mcg capsule 145 mcg PO DAILY 02/02/24 03/31/24 (Linzess) nystatin 100,000 unit/gram topical 0 unit topical DAILY PRN prn 02/02/24 03/31/24 powder (Nystop) fluticasone propionate 115 inhalation 03/24/24 03/31/24 mcg-salmeterol 21 mcg/actuation HFA inhaler (Advair HFA) fluticasone propionate 50 intranasal 03/24/24 03/31/24 mcg/actuation nasal spray,suspension metformin 1,000 mg tablet 1,000 mg PO 03/24/24 03/31/24 Previous Rx's ?Medication ?Instructions ?Recorded terconazole 0.8 % vaginal cream 1 appful vaginal HS 3 days #20 11/19/23 grams azelastine 137 mcg (0.1 %) nasal 2 spray intranasal BID #30 mL 01/15/24 spray fluconazole 150 mg tablet 150 mg PO Q72H 2 doses #2 tabs 03/02/24 tobramycin 0.3 %-dexamethasone 0.1 2 drp Eye-Left QID Left ear 14 03/31/24 % eye drops,suspension days #10 mL clindamycin HCl 300 mg capsule 300 mg PO Q8H 7 days #21 caps 04/02/24 Allergies Allergy/AdvReac Type Severity Reaction Status Date / Time tetracycline (TETRACYCLINE) Allergy Severe Difficulty Verified 03/31/24 14:54 Breathing Penicillins (PENICILLINS) Allergy Unknown Unknown Verified 03/31/24 14:54 allergy reaction [facility] Disclaimer: The information contained in this section may have been updated after the patient was seen, as this information can be updated by other users. Medical History Recurrent candidiasis of vagina Candidal intertrigo Tinnitus, left ear Otalgia, left ear Yeast vaginitis Vulvar lesion Mixed hearing loss of left ear Normal hearing test of right ear Cerumen impaction Drainage from left ear Hearing difficulty of left ear Hidradenitis suppurativa Anemia Anxiety Cancer Asthma Hypertension Surgical History H/O tubal ligation History of colonoscopy History of incision and drainage History of tympanostomy tube placement History of tonsillectomy History of cholecystectomy History of section History of appendectomy Family History Other Diabetes Hypertension Social History Smoking Status: Former smoker tobacco type: cigarettes packs per day: 1 second hand exposure: Yes alcohol intake: never substance use type: denies use current occupational status: unemployed Travel in the last 8 weeks: None household members: spouse and children housing: house caffeine: Yes Other Medical History Have you received the Flu Vaccine for this season: No Have you received the Pneumonia Vaccine: No ROS Obtained: Yes other As per HPI Physical Exam General General appearance: alert and in no apparent distress Head Head exam: atraumatic and normocephalic Eye Eye exam: Present normal appearance Neck Neck exam: Present normal inspection Chest Chest inspection: Present normal inspection and symmetric chest wall rise Respiratory Respiratory exam: Present normal lung sounds bilaterally; Absent respiratory distress Cardiovascular Cardiovascular exam: Present regular rate and normal rhythm Abdominal Exam Abdominal exam: Present soft Neurological Exam Neurological exam: Present alert and oriented X3 Psychiatric Psychiatric exam: Present normal affect and normal mood Skin Skin exam: Present warm and dry Other Other exam information: Area of erythema, fluctuance, on right gluteal area, no communication with surrounding structures, approximately 3 cm in diameter Medical Decision Making Medical Records Medical records reviewed: Yes I reviewed the patient's medical records. Screening: Per USPSTF and CDC recommendations, given the prevalence of disease in our region, it is our hospital?s policy to screen for HIV and viral Hepatitis for all patients aged 18 and over and those with ongoing risk factors. Librado Inquiry Pt receiving controlled substance: No Vital Signs: 04/02/24 10:27 04/02/24 11:44 04/02/24 12:01 Temperature 97.9 F Temperature Source Oral Pulse Rate 66 67 Pulse Rate [Left Radial] 80 Respiratory Rate 18 Blood Pressure 101/64 L 107/61 L Blood Pressure [Right Arm] 131/96 H Blood Pressure Mean Blood Pressure Mean [Right Arm] 107 Blood Pressure Source Blood Pressure Source [Right Arm] Automatic Cuff Blood Pressure Position Blood Pressure Position [Right Arm] Sitting 02 Sat by Pulse Oximetry 97 95 96 Oxygen Delivery Method Room Air Room Air Room Air 04/02/24 12:30 04/02/24 13:01 Temperature 98.0 F Temperature Source Oral Pulse Rate 61 61 Pulse Rate [Left Radial] Respiratory Rate 16 Blood Pressure 99/61 L 99/61 L Blood Pressure [Right Arm] Blood Pressure Mean 73 Blood Pressure Mean [Right Arm] Blood Pressure Source Automatic Cuff Blood Pressure Source [Right Arm] Blood Pressure Position Sitting Blood Pressure Position [Right Arm] 02 Sat by Pulse Oximetry 96 Oxygen Delivery Method Room Air Medical Decision Narrative: Patient with history and exam per above presenting for evaluation of rash Diagnoses considered include abscess, cellulitis, among others [id number] ultrasound performed revealing abscess of approximately 2 cm in diameter. Incision and drainage was performed as well as wound culture. My clinical impression at this time is most consistent with abscess with surrounding cellulitis I discussed my clinical impression with patient and answered all questions. At this time, the evidence for any other entities in the differential is insufficient to warrant any further testing or ED observation. This was explained to the patient. The patient was advised that persistent or worsening symptoms require further evaluation. Procedures Abscess I/D Site: other (Right gluteal area) Side (if applicable): right Local Anesthetic: lidocaine 1% Amount of anesthesia used (mL): 10 Technique: incised with #11 blade Amount of fluid expressed (mL): 5 Irrigation: Yes Packing used?: none Critical Care Critical Care Time Critical Care Time: No
[2024-04-02 11:44] VITALS: BP 101/64; PULSE 66; O2SAT 95
[2024-04-02 12:01] VITALS: BP 107/61; PULSE 67; O2SAT 96
[2024-04-02 12:30] VITALS: BP 99/61; PULSE 61; O2SAT 96
[2024-04-02 13:01] VITALS: BP 99/61; PULSE 61; RESP 16; TEMP 36.7; O2SAT 96
== END 2024-04-02 13:02 | disposition home or self-care (01) ==
PROVIDERS: Emergency Provider Emergency Medicine; PCP Nurse Practitioner Family
DX: L02.31 Cutaneous abscess of buttock (principal)
CPT/HCPCS: 99283

== ENCOUNTER 2024-05-02 18:32 | Emergency (ER) | payer OTHER, SELFPAY ==
[2024-05-02 18:33] VITALS: BP 119/95; PULSE 77; RESP 20; TEMP 36.9; O2SAT 99; BMI 33.5
[2024-05-02 18:39] VITALS: BP 119/95; PULSE 72; O2SAT 98
--- NOTE | 2024-05-02 18:40 | ED_ITS ---
<Statement entered by Una Pierre DO - 05/02/24 23:34> I was consulted by the JACKIE, and we discussed the complexity of the problems being addressed. I approved the treatment and management plan for this patient's care in the emergency department, thus performing a substantive portion of the medical decision making. Risk versus benefit of facial abscess drainage thoroughly explained to the patient prior to proceeding. This was done in the ED because it is very superficial after informed consent was obtained. Una Pierre DO Discharge Plan Disposition Patient Disposition: Home, Self-Care Condition: Good Prescriptions Prescriptions: No Action cyanocobalamin (vitamin B-12) [Vitamin B-12] 100 mcg tablet 100 mcg PO DAILY cetirizine 10 mg tablet 10 mg PO DAILY Patient Comments: TAKE ONE TABLET BY MOUTH EVERY DAY bupropion HCl 300 mg tablet extended release 24 hr 300 mg PO DAILY Patient Comments: TAKE ONE TABLET BY MOUTH EVERY DAY azelastine 137 mcg (0.1 %) spray,non-aerosol 2 spray intranasal BID Qty: 30 3RF Rx Instructions: administer into each nostril nystatin [Nystop] 100,000 unit/gram powder 0 unit topical DAILY PRN (Reason: prn) Patient Comments: APPLY TOPICALLY TO THE AFFECTED AREA(S) THREE TIMES DAILY FOR FOURTEEN DAYS levocetirizine 5 mg tablet 5 mg PO DAILY Patient Comments: TAKE ONE TABLET BY MOUTH EVERY EVENING Linzess 145 mcg capsule 145 mcg PO DAILY Patient Comments: TAKE ONE CAPSULE BY MOUTH EVERY DAY BEFORE meals FOR constipation sulfamethoxazole-trimethoprim [Bactrim DS] 800-160 mg tablet 1 tab PO BID 10 Days Qty: 20 0RF ondansetron 4 mg tablet,disintegrating 4 mg PO Q8H Qty: 12 0RF tobramycin-dexamethasone 0.3-0.1 % drops,suspension 2 drp Eye-Left QID 14 Days Qty: 10 0RF Rx Instructions: Change above route to ear fluconazole 150 mg tablet 150 mg PO Q72H Qty: 2 0RF metformin 1,000 mg tablet 1,000 mg PO Patient Comments: TAKE ONE TABLET BY MOUTH TWICE DAILY fluticasone propion-salmeterol [Advair HFA] 115-21 mcg/actuation HFA aerosol inhaler inhalation Patient Comments: INHALE TWO PUFFS BY MOUTH TWICE DAILY --RINSE MOUTH AFTER USE-- terconazole 0.8 % cream 1 appful vaginal HS 3 Days Qty: 20 8RF Rx Instructions: Apply the terconazole cream twice daily to the affected area. potassium chloride 10 mEq capsule, extended release 10 meq PO DAILY Patient Comments: TAKE ONE CAPSULE BY MOUTH EVERY DAY spironolactone 100 mg tablet 100 mg PO DAILY Patient Comments: TAKE ONE TABLET BY MOUTH TWICE DAILY omeprazole 40 mg capsule,delayed release(DR/EC) 40 mg PO DAILY Patient Comments: TAKE ONE CAPSULE BY MOUTH EVERY DAY montelukast 10 mg tablet 10 mg PO DAILY Patient Comments: TAKE ONE TABLET BY MOUTH EVERY DAY atenolol 50 mg tablet 50 mg PO DAILY Patient Comments: TAKE ONE TABLET BY MOUTH EVERY DAY loratadine 10 mg tablet 10 mg PO DAILY Patient Comments: TAKE ONE TABLET BY MOUTH EVERY DAY escitalopram oxalate 20 mg tablet 20 mg PO DAILY Patient Comments: TAKE ONE TABLET BY MOUTH EVERY DAY Humira(CF) Pen 40 mg/0.4 mL pen injector kit 40 mg SQ WEEKLY Patient Comments: INJECT THE contents of 1 pen (0.4 ML) SUBCUTANEOUSLY ONCE A WEEK DIRECTED Referrals Follow up/Referrals: Sandra Ovalles MD [Referring] - See instructions Jessy Nesbitt APRN [Primary Care Provider] - See instructions Activity Restrictions/Add. Instructions Additional Instructions/Restrictions: Just keep your wound covered with a dry dressing no Band-Aids. You may change the packing once a day. Please call in the morning to the dermatology clinic to schedule your follow-up. For any increasing redness pain swelling or drainage return to the ER. Clinical Impressions Clinical Impression: Abscess of face Print Language Print Language: Sami Discharge ED Provider: Una Pierre General Adult HPI General Chief complaint: Wound/Laceration Stated complaint: facial pain and swelling Time Seen by Provider: 05/02/24 18:37 History of Present Illness HPI narrative: Patient presents for evaluation of an abscess on the face. Patient gives a history of a increasing 1 week swelling that has become red hot and painful over the last 48 hours. Patient does have a diagnosis of hidradenitis suppurativa previously and has been seen by ENT for a ear infection recently however she is finished her antibiotics for that. She denies any fever chills hemoptysis hematochezia melena nausea vomit diarrhea. Related Data Home Medications ?Medication ?Instructions ?Recorded ?Confirmed adalimumab 40 mg/0.4 mL 40 mg SQ WEEKLY 10/29/23 04/20/24 subcutaneous pen kit (Humira(CF) Pen) atenolol 50 mg tablet 50 mg PO DAILY 10/29/23 04/20/24 escitalopram oxalate 20 mg tablet 20 mg PO DAILY 10/29/23 04/20/24 loratadine 10 mg tablet 10 mg PO DAILY 10/29/23 04/20/24 montelukast 10 mg tablet 10 mg PO DAILY 10/29/23 04/20/24 omeprazole 40 mg capsule,delayed 40 mg PO DAILY 10/29/23 04/20/24 release potassium chloride 10 mEq 10 meq PO DAILY 10/29/23 04/20/24 capsule,extended release spironolactone 100 mg tablet 100 mg PO DAILY 10/29/23 04/20/24 bupropion HCl 300 mg 24 hr tablet, 300 mg PO DAILY 11/17/23 04/20/24 extended release cetirizine 10 mg tablet 10 mg PO DAILY 11/17/23 04/20/24 cyanocobalamin (vitamin B-12) 100 100 mcg PO DAILY 11/17/23 04/20/24 mcg tablet (Vitamin B-12) levocetirizine 5 mg tablet 5 mg PO DAILY 02/02/24 04/20/24 linaclotide 145 mcg capsule 145 mcg PO DAILY 02/02/24 04/20/24 (Linzess) nystatin 100,000 unit/gram topical 0 unit topical DAILY PRN prn 02/02/24 04/20/24 powder (Nystop) fluticasone propionate 115 inhalation 03/24/24 04/20/24 mcg-salmeterol 21 mcg/actuation HFA inhaler (Advair HFA) metformin 1,000 mg tablet 1,000 mg PO 03/24/24 04/20/24 Previous Rx's ?Medication ?Instructions ?Recorded terconazole 0.8 % vaginal cream 1 appful vaginal HS 3 days #20 11/19/23 grams azelastine 137 mcg (0.1 %) nasal 2 spray intranasal BID #30 mL 01/15/24 spray fluconazole 150 mg tablet 150 mg PO Q72H 2 doses #2 tabs 03/02/24 ondansetron 4 mg disintegrating 4 mg PO Q8H #12 tabs 04/20/24 tablet sulfamethoxazole 800 1 tab PO BID 10 days #20 tabs 04/20/24 mg-trimethoprim 160 mg tablet (Bactrim DS) tobramycin 0.3 %-dexamethasone 0.1 2 drp Eye-Left QID Left ear 14 04/20/24 % eye drops,suspension days #10 mL Allergies Allergy/AdvReac Type Severity Reaction Status Date / Time tetracycline (TETRACYCLINE) Allergy Severe Difficulty Verified 04/20/24 09:57 Breathing Penicillins (PENICILLINS) Allergy Unknown Unknown Verified 04/20/24 09:57 allergy reaction [facility] Disclaimer: The information contained in this section may have been updated after the patient was seen, as this information can be updated by other users. Medical History Recurrent candidiasis of vagina Candidal intertrigo Tinnitus, left ear Otalgia, left ear Yeast vaginitis Vulvar lesion Mixed hearing loss of left ear Normal hearing test of right ear Cerumen impaction Drainage from left ear Hearing difficulty of left ear Hidradenitis suppurativa Anemia Anxiety Cancer Asthma Hypertension Surgical History H/O tubal ligation History of colonoscopy History of incision and drainage History of tympanostomy tube placement History of tonsillectomy History of cholecystectomy History of section History of appendectomy Family History Other Diabetes Hypertension Social History Smoking Status: Never smoker second hand exposure: Yes alcohol intake: never substance use type: denies use current occupational status: unemployed Travel in the last 8 weeks: None household members: spouse and children housing: house caffeine: Yes Have you lived/traveled outside [place] in past 30 days?: No Contact w/someone who lives/traveled outside [place] past 30 days?: No Exposure to someone with infectious disease in past 14 days?: No Do you have a fever (greater than 100.4 F or 38 C)?: No Have you tested positive for COVID-19: No Exposed to someone with COVID-19 in past 14 days?: No Do you have a sore throat?: No Do you have a cough?: No Do you have any weakness?: No Do you have any diarrhea?: No Are you experiencing any unusual bleeding?: No Do you have any muscle aches/pain?: No Do you have any abdominal pain?: No Are you experiencing loss of taste or smell?: No Other Medical History Have you received the Flu Vaccine for this season: No Have you received the Pneumonia Vaccine: No ROS Obtained: Yes Systems reviewed as appropriate & no additional complaints except as documented Physical Exam General General appearance: alert and in no apparent distress Respiratory Respiratory exam: Present normal lung sounds bilaterally Cardiovascular Cardiovascular exam: Present regular rate Neurological Exam Neurological exam: Present alert and oriented X3 Medical Decision Making Medical Records Medical records reviewed: Yes I reviewed the patient's medical records. Screening: Per USPSTF and CDC recommendations, given the prevalence of disease in our region, it is our hospital?s policy to screen for HIV and viral Hepatitis for all patients aged 18 and over and those with ongoing risk factors. Librado Inquiry Pt receiving controlled substance: No Vital Signs: 05/02/24 18:33 05/02/24 18:39 Temperature 98.4 F Temperature Source Oral Pulse Rate 72 Pulse Rate [Left Radial] 77 Respiratory Rate 20 Blood Pressure 119/95 H Blood Pressure [Right Arm] 119/95 H Blood Pressure Mean [Right Arm] 103 02 Sat by Pulse Oximetry 99 98 Oxygen Delivery Method Room Air Lab Data Lab results reviewed: Yes I reviewed the patient's lab results. Orders (Tests/Meds): ED MEDICATIONS Discontinued Medications Generic Name Dose Route Start Last Admin Trade Name Freq PRN Reason Stop Dose Admin Dalbavancin 1,500 mg/ Dextrose 250 mls @ 500 mls/hr 05/02/24 18:46 IV 05/02/24 18:47 ONCE ONE Lidocaine/Epinephrine 10 ml 05/02/24 18:46 Lidocaine 1% W/Epi 1:100,000 20ml Vial SQ 05/02/24 18:47 ONCE ONE ORDERS Category Date Time Status BMP [Basic Metabolic Panel] Stat Lab 05/02/24 18:46 Ordered CBC w/Auto Diff [Complete Blood Count Auto Diff] Stat Lab 05/02/24 18:46 Ordered Wound Culture and Gram Stain Stat Micro 05/02/24 18:51 Received Medical Decision Narrative: In summary patient is a 43-year-old female who presents to the emergency [facility] for evaluation of facial abscess. Patient is hemodynamically stable upon arrival, febrile. Physical exam is remarkable for a approximately 3 cm area of edema and erythema and fluctuance on the left side of her cheek lateral to the corner of the left mouth. There is no extension into the submandibular tissues no evidence of Mehrdad's angina patient has normal tongue protrusion normal bite occlusion. Patient does have several other smaller cystic feeling subcutaneous lesions however they do not appear to be acutely infected or tender currently. There is no pointing on the current lesion. Differential diagnosis includes cyst versus abscess. Initial workup will be conducted with hematologic labs. Initial interventions include subcutaneous lidocaine with epi. Initial workup reviewed by me shows her hematologic labs are nonactionable. Upon repeat evaluation patient had incision and drainage performed by myself with expression of approximately 3 cc of purulent material. Given this patient will receive infusion of Dalvance and referral to dermatology for evaluation of cystic acne versus hidradenitis suppurativa. Patient given strict return precautions. Procedures Abscess I/D Site: face Side (if applicable): left Sedation/analgesia: none Local Anesthetic: with epi Amount of anesthesia used (mL): 5 Technique: incised with #11 blade Amount of fluid expressed (mL): 3 Irrigation: Yes Packing used?: plain Critical Care Critical Care Time Critical Care Time: No
[2024-05-02 19:38] LABS: Chloride 107 mmol/L (98-107); Sodium 139 mmol/L (136-145)
[2024-05-02 19:39] LABS: Potassium 4.2 mmoL/L (3.5-5.1)
[2024-05-02 19:41] LABS: Blood Urea Nitrogen 16 mg/dl (7-17); Creatinine Clearance Estimated 115 mL/min (50-200); Estimated Glomerular Filt Rate 69 ml/min (>60); GFR (African American) 83 ML/MIN (>60)
[2024-05-02 19:42] LABS: Anion Gap 12.2 mEq/L (5-15); Calcium 9.1 mg/dl (8.4-10.2); Carbon Dioxide 24 mmol/L (22.0-30.0); Glucose 93 mg/dl (74-100)
[2024-05-02 19:45] LABS: Basophils # 0.1 K/mm3 (0-0.2); Basophils % 0.7 % (0.1-2.0); Eosinophils # 0.3 K/mm3 (0.0-0.4); Eosinophils % 1.7 % (0.1-12.0); Lymphocytes # 3.9 K/mm3 (0.7-4.5); Lymphocytes % 25.7 % (10-50); Mean Corpuscular HGB Conc 33.4 g/dL (31.8-35.4); Mean Corpuscular Hemoglobin 30.9 pg (27.0-31.2); Mean Corpuscular Volume 92.6 fl (81-99); Mean Platelet Volume 7.9 fl (7.4-10.4); Monocytes # 0.7 K/mm3 (0.1-1.0); Monocytes % 4.9 % (1.7-9.3); Neutrophils # 10.1 K/mm3 (1.8-7.8); Neutrophils % 67.1 % (37.0-80.0); Platelet Count 428 K/mm3 (142-424); Red Blood Count 4.21 M/mm3 (4.20-5.40); Red Cell Distribution Width 13.3 % (11.5-17.5); White Blood Count 15.1 K/mm3 (4.8-10.8)
--- NOTE | 2024-05-02 20:05 | PC.NURSE ---
AZRA stuck on RN name from dayshift. Unable to scan med. 2 nurse verification prior to admin. Started @ 1939
[2024-05-02 20:21] LABS: MANUAL DIFFERENTIAL MANUAL DIFFERENTIAL (MANUAL DIFF)
[2024-05-02 20:28] VITALS: BP 133/70; PULSE 68; RESP 22; TEMP 36.6
[2024-05-02 20:51] LABS: Eosinophils % 5 % (0-3); Lymphocytes % 33 % (10-50); Monocytes % 4 % (2-9); Neutrophils % 58 % (42-76); Platelet Estimate Slight Increase; RBC Morphology Normal; Total Cells Counted 100
--- NOTE | 2024-05-03 11:31 | PC.NURSE ---
prelim wound culture discussed with , pt given mel in ER, ntd
== END 2024-05-02 20:30 | disposition home or self-care (01) ==
PROVIDERS: Physician Assistant; Emergency Provider Emergency Medicine; PCP Nurse Practitioner Family
DX: R22.0 Localized swelling, mass and lump, head (principal); L02.01 Cutaneous abscess of face
CPT/HCPCS: 10060; 80048; 85007; 85025; 85027; 87070; 87077; 87186; 87205; 99283

== ENCOUNTER 2024-06-29 08:58 | Outpatient (CLI) | payer OTHER, SELFPAY ==
[2024-06-29 10:53] LABS: Vitamin B12 778 pg/mL (239-931)
[2024-06-29 11:44] LABS: Iron 72 ug/dL (37-170)
[2024-06-29 11:51] LABS: C-Reactive Protein 6.9 mg/L (0-4)
[2024-06-29 11:54] LABS: Total Iron Binding Capacity 387 ug/dL (265-497)
[2024-06-29 12:21] LABS: Ferritin 14.3 ng/ml (6.24-137)
[2024-07-01 16:12] LABS: Saccharomyces cerevisiae, IgA 83.1 Units (0.0-24.9); Saccharomyces cerevisiae, IgG 53.7 Units (0.0-24.9)
[2024-07-07 03:41] LABS: Adalimumab Drug Level 6.2 ug/mL (.); Anti-Adalimumab Antibody < 25 ng/mL (.)
[2024-07-10 19:09] LABS: 1,25 Dihydroxy Vitamin D 33 pg/mL (.); 1,25-Dihydroxy, Vitamin D-2 27 pg/mL (.); 1,25-Dihydroxy, Vitamin D-3 <10 pg/mL (.)
== END 2024-06-29 23:59 | disposition home or self-care (01) ==
LOC: LAB 08:59
PROVIDERS: PCP Internal Medicine Adolescent Medicine; Visit Provider Internal Medicine Gastroenterology
DX: K50.00 Crohn's disease of small intestine without complications (principal); R10.9 Unspecified abdominal pain; R10.32 Left lower quadrant pain; R19.7 Diarrhea, unspecified
CPT/HCPCS: 36415; 80145; 82397; 82607; 82652; 82728; 83540; 83550; 86140; 86256; 86671

== ENCOUNTER 2024-07-06 14:54 | Outpatient (CLI) | payer OTHER, SELFPAY ==
--- NOTE | 2024-07-06 15:00 | XR_ITS ---
FINAL REPORT CLINICAL HISTORY: N/V CROHNS DISEASE COMPARISON: None FINDINGS: A single supine view the abdomen was obtained. The bowel gas pattern is nonspecific but nonobstructive with a relative paucity of gas in the mid abdomen. An Essure coil is noted within the left pelvis. There are no renal stones. Pelvic calcifications are likely phleboliths. There is a sclerotic lesion within the left femoral head that is likely a bone island. No acute osseous abnormality. IMPRESSION: Nonspecific but nonobstructive bowel gas pattern with a relative paucity of gas in the mid abdomen. Reviewed, Interpreted and Dictated by Bella Fair MD Transcribed by Isabel Hsu Authenticated and [facility]
== END 2024-07-06 23:59 | disposition home or self-care (01) ==
LOC: RAD 14:55
PROVIDERS: PCP Nurse Practitioner Family; Visit Provider Nurse Practitioner Family
DX: R11.2 Nausea with vomiting, unspecified (principal); K50.811 Crohn's disease of both small and large intestine with rectal bleeding
CPT/HCPCS: 74018

== ENCOUNTER 2024-07-12 16:32 | Outpatient (CLI) | payer OTHER, SELFPAY ==
--- NOTE | 2024-07-12 16:36 | MM_ITS ---
PROCEDURE INFORMATION: Exam: MG Bilateral Screening 3D Mammography Exam date and time: 07/12/2024 4:40 PM Age: 44 years old Clinical indication: Screening examination TECHNIQUE: Imaging protocol: Bilateral Screening tomosynthesis and 2D mammography including computer-aided detection (CAD) when performed. COMPARISON: 1. MG MM DIG MAMM DX UNILAT RT CAD 07/15/2023 3:30 PM 2. MG MM DIG SCREENING MAMM BI W/CAD 07/08/2023 4:15 PM FINDINGS: MAMMOGRAPHY: Breast composition: There are scattered areas of fibroglandular density. Mass: None. Architectural distortion: None. Calcifications: No suspicious calcifications. Asymmetric density: None. Skin thickening: None. Axillary adenopathy: None. IMPRESSION: No mammographic evidence of malignancy. Annual screening is recommended unless otherwise clinically indicated. ASSESSMENT: BI-RADS Category 1: Negative.
== END 2024-07-12 23:59 | disposition home or self-care (01) ==
LOC: RAD 16:32
PROVIDERS: PCP Nurse Practitioner Family; Visit Provider Nurse Practitioner Family
DX: Z12.31 Encounter for screening mammogram for malignant neoplasm of breast (principal)
CPT/HCPCS: 77063; 77067

== ENCOUNTER 2024-08-26 09:30 | Day surgery (SDC) | payer OTHER, SELFPAY ==
[2024-08-24 17:04] VITALS: BMI 35.2
[2024-08-26 10:00] VITALS: BP 127/80; PULSE 81; RESP 18; TEMP 36.1; O2SAT 95
[2024-08-26] MEDS: LACTATED RINGERS 1000ML 1,000 ML 50 ML IV (10:04)
--- NOTE | 2024-08-26 10:23 | EXP.ANES.CKL ---
[facility] Disclaimer: The information contained in this section may have been updated after the patient was seen, as this information can be updated by other users. Medical History Chronic otitis media of left ear with perforated tympanic membrane Recurrent candidiasis of vagina Candidal intertrigo Tinnitus, left ear Otalgia, left ear Yeast vaginitis Vulvar lesion Mixed hearing loss of left ear Normal hearing test of right ear Cerumen impaction Drainage from left ear Hearing difficulty of left ear Hidradenitis suppurativa Anemia Anxiety Cancer Asthma Hypertension Surgical History H/O tubal ligation History of colonoscopy History of incision and drainage History of tympanostomy tube placement History of tonsillectomy History of cholecystectomy History of section History of appendectomy Family History Other Diabetes Hypertension Social History Smoking Status: Former smoker tobacco type: cigarettes packs per day: 1 second hand exposure: Yes alcohol intake: current alcohol intake frequency: holidays/special occasions only substance use type: denies use current occupational status: unemployed Travel in the last 8 weeks: None housing: house caffeine: Yes Have you lived/traveled outside [place] in past 30 days?: No Contact w/someone who lives/traveled outside US past 30 days?: No Exposure to someone with infectious disease in past 14 days?: No Do you have a fever (greater than 100.4 F or 38 C)?: No Have you tested positive for COVID-19: No Exposed to someone with COVID-19 in past 14 days?: No Do you have a sore throat?: No Do you have a cough?: No Do you have any weakness?: No Do you have any diarrhea?: No Are you experiencing any unusual bleeding?: No Do you have any muscle aches/pain?: No Do you have any abdominal pain?: No Are you experiencing loss of taste or smell?: No [facility] Anesthesia Checklist Patient Identification Patient Identification: Arm Band and Family Structural Data Admitted From: Home Planned Operative Procedure/s: Colonoscopy Verified Documents: Surgical Consent and History and Physical NPO Status Verified Time NPO: 00:00 Additional verifications Patient : No Anesthesia Reactions: No Hx Blood Transfusions: No Blood Transfusion Reaction: No Cephalosporin Allergy: No Previous Colonoscopy: Yes Airway Assessment Mallampati Score:: Class II C-Spine Mobility Assessed: Yes TMJ Mobility Assessed: Yes Dentition: Good Dentition Neurological Assessment Level of Consciousness: Awake, Alert, Appropriate and Follows Commands Hx Seizures: No Numbness or tingling in extremities: No Anesthesia Plan Anesthesia Risk discussed: Yes ASA Class: II Anesthesia Type: MAC Preoperative Comments Pre-Operative Comments: Crohn's disease,
--- NOTE | 2024-08-26 11:33 | EXP.HP ---
History of Present Illness *Admission Date: 08/26/24 *Reason for visit:: History of Crohn's disease *History of present illness: Mrs. Guo is a 44-year-old female with a long history of Crohn's disease that was diagnosed approximately 20 years ago. She has been on Humira for the last 10 years. She is a new consultation to this practice but she has been following with Dr. Diogo Sams in [place]. She states that his office is getting so busy it is hard for her to get in. The patient does state that her colonoscopy in 2021 showed primarily remission of her Crohn's disease. The records are not currently available. The patient does state that he she had some Humira testing at 1 point (adalimumab level and antibody) which were borderline. The patient does state that she developed some constipation 6 to 8 months ago and was placed on Linzess. She presently reports marked diarrhea with watery stools and crampy abdominal pain especially postprandially. She has had some nausea and vomiting. She reports no rectal bleeding or mucus. She has had no unintentional weight loss. She does get moderate gassiness and bloating. Her pain is left lower quadrant primarily. [facility] Disclaimer: The information contained in this section may have been updated after the patient was seen, as this information can be updated by other users. Medical History Chronic otitis media of left ear with perforated tympanic membrane Recurrent candidiasis of vagina Candidal intertrigo Tinnitus, left ear Otalgia, left ear Yeast vaginitis Vulvar lesion Mixed hearing loss of left ear Normal hearing test of right ear Cerumen impaction Drainage from left ear Hearing difficulty of left ear Hidradenitis suppurativa Anemia Anxiety Cancer Asthma Hypertension Surgical History H/O tubal ligation History of colonoscopy History of incision and drainage History of tympanostomy tube placement History of tonsillectomy History of cholecystectomy History of section History of appendectomy Family History Other Diabetes Hypertension Social History Smoking Status: Former smoker tobacco type: cigarettes packs per day: 1 second hand exposure: Yes alcohol intake: current alcohol intake frequency: holidays/special occasions only substance use type: denies use current occupational status: unemployed Travel in the last 8 weeks: None housing: house caffeine: Yes Have you lived/traveled outside US in past 30 days?: No Contact w/someone who lives/traveled outside US past 30 days?: No Exposure to someone with infectious disease in past 14 days?: No Do you have a fever (greater than 100.4 F or 38 C)?: No Have you tested positive for COVID-19: No Exposed to someone with COVID-19 in past 14 days?: No Do you have a sore throat?: No Do you have a cough?: No Do you have any weakness?: No Do you have any diarrhea?: No Are you experiencing any unusual bleeding?: No Do you have any muscle aches/pain?: No Do you have any abdominal pain?: No Are you experiencing loss of taste or smell?: No Other Medical History Have you received the Flu Vaccine for this season: No Have you received the Pneumonia Vaccine: No Review of Systems Review of Systems Review of systems (narrative): Negative *Cardiovascular Comments: Negative *Gastrointestinal Comments: Negative *Genitourinary Comments: Negative *Musculoskeletal Comments: Negative *Neurologic Comments: Negative Meds Home Medications and Allergies Home Medications ?Medication ?Instructions ?Recorded ?Confirmed ?Type atenolol 50 mg tablet 50 mg PO DAILY 10/29/23 08/26/24 History escitalopram oxalate 20 mg tablet 20 mg PO DAILY 10/29/23 08/26/24 History loratadine 10 mg tablet 10 mg PO DAILY 10/29/23 08/26/24 History montelukast 10 mg tablet 10 mg PO DAILY 10/29/23 08/26/24 History omeprazole 40 mg capsule,delayed 40 mg PO DAILY 10/29/23 08/26/24 History release potassium chloride 10 mEq 10 meq PO DAILY 10/29/23 08/26/24 History capsule,extended release spironolactone 100 mg tablet 100 mg PO DAILY 10/29/23 08/26/24 History bupropion HCl 300 mg 24 hr tablet, 300 mg PO DAILY 11/17/23 08/26/24 History extended release cetirizine 10 mg tablet 10 mg PO DAILY 11/17/23 08/26/24 History azelastine 137 mcg (0.1 %) nasal 2 spray intranasal BID #30 mL 01/15/24 08/26/24 Rx spray nystatin 100,000 unit/gram topical 0 unit topical DAILY PRN prn 02/02/24 08/26/24 History powder (Nystop) adalimumab 40 mg/0.4 mL 80 mg (0.8 mL) SQ WEEKLY #4 ea 07/07/24 08/26/24 Rx subcutaneous pen kit (Humira(CF) Pen) ketotifen fumarate 0.025 % (0.035 2 drp ophthalmic (eye) DAILY 08/25/24 08/26/24 History %) eye drops fluticasone propionate 115 2 puff inhalation BID 08/26/24 08/26/24 History mcg-salmeterol 21 mcg/actuation HFA inhaler (Advair HFA) New Prescriptions to Start Prescriptions: Allergies Allergy/AdvReac Type Severity Reaction Status Date / Time tetracycline (TETRACYCLINE) Allergy Severe Difficulty Verified 08/26/24 09:55 Breathing Penicillins (PENICILLINS) Allergy Unknown Unknown Verified 08/26/24 09:55 allergy reaction Exam Data for Last 24 hours Vital signs and Labs for Last 24 Hours: Temp Pulse Resp BP Pulse Ox O2 Del Method 97.0 F L 81 18 127/80 95 Room Air 08/26/24 10:00 08/26/24 10:00 08/26/24 10:00 08/26/24 10:00 08/26/24 10:00 08/26/24 10:00 I & O for Last 24 hours: Intake & Output 08/23/24 08/24/24 08/25/24 08/26/24 23:59 23:59 23:59 23:59 Weight 205 lb *Routine HEENT Exam Head: Present normocephalic Eye: Present EOMI and PERRL ENT: Present mucous membranes moist *Routine Neck Exam Neck: Present supple *Routine Respiratory Exam Respiratory: Present CTA bilaterally *Routine Cardiovascular Exam Cardiovascular: Present RRR *Routine Abdominal Exam Abdominal: Present soft and normoactive bowel sounds; Absent tenderness *Routine Rectal Exam Rectal:: deferred *Routine Genitalia Exam Genitalia:: deferred *Routine Extremities Exam Extremities: Absent cyanosis, clubbing or edema *Routine Skin Exam Skin: Present warm; Absent rash *Routine Neurological Exam Neurological: Present alert and oriented X3 Assessment and Plan *Assessment and plan (1) Crohns disease of small intestine: Status: Acute Category: Medical Code(s): K50.00 - Crohn's disease of small intestine without complications (2) Left lower quadrant abdominal pain: Status: Acute Category: Medical Code(s): R10.32 - Left lower quadrant pain (3) Diarrhea: Status: Acute Category: Medical Code(s): R19.7 - Diarrhea, unspecified (4) Abdominal cramps: Status: Acute Category: Medical Code(s): R10.9 - Unspecified abdominal pain (5) Bloating: Status: Acute Category: Medical Code(s): R14.0 - Abdominal distension (gaseous) Plan A/P: 1. Crohn's disease with more recent crampy abdominal pain, marked diarrhea and some left lower quadrant pain with moderate gassiness and bloating is the preprocedural diagnosis. The patient will be anesthetized/sedated using MAC sedation. The patient has been seen and examined. Cardiac and lung assessment prior to the examination is stable. Proceed with planned diagnostic colonoscopy.
[2024-08-26 11:43] VITALS: O2SAT 100
--- NOTE | 2024-08-26 11:44 | HMH.PROCNOTE ---
[facility] Procedure Note Date: 08/26/24 Time: 12:01 Procedure Note:: Colonoscopy Procedure Report: Colonoscopy with cold snare polypectomy and cold biopsies Endoscopist: Angel Schumacher II, MD Referring physician: Owen Mars M.D. Date of Procedure: August 26, 2024 Equipment: Olympus 190 variable stiffness pediatric colonoscope Sedation: MAC sedation Indication: Mrs. Guo is a 44-year-old female who is here for diagnostic colonoscopy. The patient does have a long history of Crohn's disease that was diagnosed approximately 20 years ago. She has been on Humira for the last 10 years. She had been following with Dr. Diogo Sams in [place]. She states that his office is getting so busy it is hard for her to get in. The patient does state that her colonoscopy in 2021 showed primarily remission of her Crohn's disease. The patient does state that he she had some Humira testing at 1 point (adalimumab level and antibody) which were borderline. The patient does state that she developed some constipation 8-10 months ago and was placed on Linzess. When she saw me in the office for consultation in June 2024 she had marked diarrhea with watery stools and crampy abdominal pain especially postprandially. At that time, her pain was mostly in the left lower quadrant. She has had some nausea and vomiting. She reports no rectal bleeding or mucus. She has had no unintentional weight loss. She does get some moderate gassiness and bloating. The patient is currently on Humira 40 mg subcutaneously weekly. She does have a positive ASCA IgG and IgA antibodies. Her adalimumab level was 6.2 mcg/mL which is slightly subtherapeutic but insurance would not approve increase of Humira to 80 mg weekly. Labs in June had shown a slightly elevated CRP of 6.9. Procedure: Prior to the procedure, a history and physical exam was performed, and patient's medications and allergies were reviewed. The risks, benefits and alternatives of the sedation and procedure were discussed with the patient. All questions were answered and informed consent was obtained. The patient was brought to the procedure room. Patient identification and proposed procedure were verified by the physician and the nurse. The patient was placed in a left lateral decubitus position and the scope was passed under direct vision. Throughout the procedure, the patient's blood pressure, pulse, and oxygen saturations were monitored continuously. The colonoscopy was accomplished without difficulty. The patient tolerated the procedure well. Findings: On digital rectal examination there was normal rectal tone. There were no external hemorrhoids. The colonoscope was introduced through the anal canal to the rectum and advanced to the cecum. The ileocecal valve and appendiceal orifice were identified. The scope was advanced 15 to 20 cm into the ileum which appeared grossly normal. There was no evidence of any active Crohn's ileitis and there were no aphthous erosions or ulcerations or edema. There was a couple of small regional areas of mucosal white fibrosis with evidence of prior Crohn's disease. Cold biopsies were taken from the ileum. The scope was then withdrawn into the colon. There were 3 polyps (ascending x 2 (4 and 5 mm) and sigmoid x 1 (4 mm)). These were all removed via cold snare polypectomy. The remaining cecum, ascending, transverse, descending, sigmoid and rectum were grossly normal. There was no evidence of any Crohn's colitis and there were no other colonic mucosal abnormalities identified. Upon retroflexion within the rectum there were 2 internal hemorrhoids. The preparation was good throughout with [place] Preparation Score of 8 out of 9. The cecal time was 14 minutes. Impression: 1. Complete ileal remission of Crohn's ileitis (Crohn's disease of the small intestine) 2. Diminutive colonic polyps x 3 3. Grade 2 internal hemorrhoids Plan: I will follow-up the biopsies and polyp histology and recommend repeat surveillance colonoscopy again in 5 years. The patient is in complete remission on the Humira. I will discuss the findings with the patient and family.
[2024-08-26 12:07] VITALS: BP 104/59; PULSE 74; RESP 17; TEMP 36.9; O2SAT 94
[2024-08-26 12:17] VITALS: BP 111/69; PULSE 70; RESP 17; O2SAT 98
[2024-08-26 12:27] VITALS: BP 109/73; PULSE 71; RESP 16; O2SAT 98
== END 2024-08-26 12:57 | disposition home or self-care (01) ==
PROVIDERS: PCP Internal Medicine Adolescent Medicine; Visit Provider Internal Medicine Gastroenterology
PROC: 0DJD8ZZ Inspection of Lower Intestinal Tract, Via Natural or Artificial Opening Endoscopic (ICD-10-PCS; CPT 45378; principal; 2024-08-26 11:00)
DX: K63.5 Polyp of colon (principal); K64.1 Second degree hemorrhoids; K50.00 Crohn's disease of small intestine without complications; R10.32 Left lower quadrant pain; R19.7 Diarrhea, unspecified; R10.9 Unspecified abdominal pain; R14.0 Abdominal distension (gaseous)
CPT/HCPCS: 45380; 45385; J7120

== ENCOUNTER 2024-12-09 12:43 | Observation (INO) | payer OTHER, SELFPAY ==
--- OUTSIDE RECORDS SUMMARY | 2024-08-21 17:30 | XMS_ITS ---
Author Organization [facility] Address [address] [place] [address] Care Team Providers Care Senior Systems Administrator Name Role Phone Rashid Marshen Primary Care Provider [phone] Deja Carmichael Unavailable [phone] Migration, Provider Unavailable Unavailable Allergies Allergen (clinical drug ingredient) Drug/Non Drug Allergy documented on EMR Reaction Allergy Type Onset Date Status Penicillin Unknown Drug Allergy Active tetracycline Tetracycline Unknown Drug Allergy A ctive REASON FOR VISIT [facility] Encounter Medications Medication SIG (Take, Route, Frequency, Duration) Notes Start Date End Date Status Levocetirizine Dihydrochloride 5 MG 1 tab(s) orally once a day (in the evening); Duration: 30 days Active Atenolol 50 MG 1 tab(s) orally once a day; Duration: 90 days Active buPROPion HCl ER (XL) 150 MG 1 tab(s) orally every 24 hours; Duration: 30 days Active Align 4 MG 1 CAP(S) ORALLY ONCE A DAY; Duration: 30 DAYS *Please review and pick correct strength-formulat ion from [facility] options. If intended option is not shown, discontinue and re-order from Quick Search* 05/20/2024 Active Ondansetron 4 MG 1 tab(s) orally every 6 hours; Duration: 7 days 07/06/2024 Active Spironolactone 100 MG 1 tab(s) orally twice daily; Duration: 30 days Active Escitalopram Oxalate 20 MG 1 tab(s) orally once a day; Duration: 30 Active Advair HFA 115-21 MCG/ACT INHALE TWO PUFFS BY MOUTH TWICE DAILY; Duration: 30 days Active Mupirocin 2 % 1 alden applied topically 3 times a day; Duration: 7 days 05/13/2024 Active Montelukast Sodium 10 MG 1 tab(s) orally once a day; Duration: 30 Active Potassium Chloride ER 10 MEQ 1 cap(s) orally once a day; Duration: 30 Active Omeprazole 40 MG 1 cap(s) orally once a day; Duration: 30 days Active Vitamin D2 1.25 MG 1 CAP(S) ORALLY ONCE A WEEK; Duration: 86 DAYS *Please review and pick correct strength-formulat ion from [employer] options. If intended option is not shown, discontinue and re-order from Quick Search* Active Fluticasone Propionate 50 MCG/ACT as directed in each nostril once a day; Duration: 30 day(s) Active Nyamyc 002538 UNIT/GM 1 alden applied topically 3 times a day; Duration: 14 days prn 01/06/2024 Active Folic Acid 1 MG 1 tab(s) orally once a day; Duration: 30 day(s) Active HUMIRA 40 MG/0.8 ML DIRECTED SUBCUTANEOUSLY EVERY WEEK *Please review for potential replacement for e-prescription and drug interaction check* Active NURTEC ODT 75 MG 1 TAB(S) ORALLY ONCE *Please re view for potential replacement for e-prescription and drug interaction check* 12/31/2021 Active Chlorhexidine Gluconate 4% 1 ALDEN APPLIED TOPICALLY ONCE; Duration: 1 DAY(S) prn *Please review and pick correct strength-formulat ion from [employer] options. If intended option is not shown, discontinue and re-order from Quick Search* 09/30/2018 Active metFORMIN HCl 1000 MG 1 tab(s) orally 2 times a day; Duration: 90 days Active Encounters Encounter Location Date Provider Diagnosis [facility] [address] [facility] [address] [place] [address] 08/21/2024 Provider Migration Recurrent acute serous otitis media of both ears H65.06 and Nausea and vomiting in adult R11.2 Assessments Encounter Date Diagnosis (ICD Code) Assessment Notes Treatment Notes Treatment Clinical Notes Section Notes 08/21/2024 Recurrent acute serous otitis media of both ears (ICD-10 - H65.06) 08/21/2024 Nausea and vomiting in adult (ICD-10 - R11.2) Plan Of Treatment Medication Medication Name Sig Start Date Stop Date Notes Levocetirizine Dihydrochlori de 5 MG 1 tab(s) orally once a day (in the evening); Duration: 30 days Ondansetron 4 MG 1 tab(s) orally ever y 6 hours; Duration: 7 days 07/06/2024 Advair HFA 115-21 MCG/ACT INHALE TWO PUF FS BY MOUTH TWICE DAILY; Duration: 30 days Potassium Chloride ER 10 MEQ 1 cap(s) or ally once a day; Duration: 30 metFORMIN HCl 1000 MG 1 tab(s) orally 2 times a day; Duration: 90 days Next Appt Details Provider Name:Owen Mars, 12/22/2024 12:00:00 PM, [address] [facility] [address] [facility], [address], [place], [address], Progress Notes * Napoleon GUO LDOB:[birth year] (44 yo F)Acc No.[id number]:08/21/2024 Patient: Napoleon BARONE Provider: Tato Solorio :1980 A ge:44 Y S ex:Female Date:08/21/2024 Address:[address] [place] [id number] Pcp:Owen Mars Subjective: * Chief Complaints: * 1 . Multum To [facility] Conversion Encounter. * Medical History: * Medications: T aking Folic Acid 1 MG Tablet 1 tab(s) orally once a day , Taking HUMIRA 40 MG/0.8 ML KIT DIRECTED SUBCUTANEOUSLY EVERY WEEK , Notes to Pharmacist: *Please review for potential replacement for e-prescription and drug interaction check*, Taking Chlorhexidine Gluconate 4% SOAP 1 ALDEN APPLIED TOPICALLY ONCE , Notes to Pharmacist: prn *Please review and pick correct strength-formulation from [facility] options. If intended option is not shown, discontinue and re-order from Quick Search*, Taking NURTEC ODT 75 MG TABLET, DISINTEGRATING 1 TAB(S) ORALLY ONCE , Notes to Pharmacist: *Please review for potential replacement for e-prescription and drug interaction check*, Taking Vitamin D2 1.25 MG CAPSULE 1 CAP(S) ORALLY ONCE A WEEK , Notes to Pharmacist: *Please review and pick correct strength-formulation from [employer] options. If intended option is not shown, discontinue and re-order from Quick Search*, Taking Omeprazole 40 MG Capsule Delayed Release 1 cap(s) orally once a day , Taking Nyamyc 144869 UNIT/GM Powder 1 alden applied topically 3 times a day , Notes to Pharmacist: prn, Taking Fluticasone Propionate 50 MCG/ACT Suspension as directed in each nostril once a day , Taking Montelukast Sodium 10 MG Tablet 1 tab(s) orally once a day , Taking Mupirocin 2 % Ointment 1 alden applied topically 3 times a day , Taking Spironolactone 100 MG Tablet 1 tab(s) orally twice daily , Taking Escitalopram Oxalate 20 MG Tablet 1 tab(s) orally once a day , Taking Atenolol 50 MG Tablet 1 tab(s) orally once a day , Taking Align 4 MG CAPSULE 1 CAP(S) ORALLY ONCE A DAY , Notes to Pharmacist: *Please review and pick correct strength-formulation from [employer] options. If intended option is not shown, discontinue and re-order from Quick Search*, Taking buPROPion HCl ER (XL) 150 MG Tablet Extended Release 24 Hour 1 tab(s) orally every 24 hours * Allergies: P enicillin, Tetracycline: Allergy. Objective: * Vitals: Assessment: * Assessment: 1. N ausea and vomiting in adult - R11.2 (Primary) 2 . R ecurrent acute serous otitis media of both ears - H65.06 Plan: * Treatment: 2. R ecurrent acute serous otitis media of both ears Start Levocetirizine Dihydrochloride Tablet, 5 MG, 1 tab(s), orally, once a day (in the evening), 30 days, 30, Refills 5. 3. O thers Start metFORMIN HCl Tablet, 1000 MG, 1 tab(s), orally, 2 times a day, 90 days, 180 Tablet, Refills 1; S tart Potassium Chloride ER Capsule Extended Release, 10 MEQ, 1 cap(s), orally, once a day, 30, 30, Refills 1; S tart Advair HFA Aerosol, 115-21 MCG/ACT, INHALE TWO PUFFS BY MOUTH TWICE DAILY, 30 days, 12 Gram, Refills 1. * * Electronic signature of Prov ider Migration on 12/09/2024 at 12:55 PM EDT Sign off status: Pending * Provider: Tato lopez Migration Date: 0 08/21/2024 Generated for Torres bullock/Radha/Maxim on: 0 12/09/2024 12:55 PM EDT
--- OUTSIDE RECORDS SUMMARY | 2024-11-02 06:45 | XMS_ITS ---
Author Organization [facility] ANNABELLA [place] AM[place] Address [address] [place] [address] Care Team Providers Care Aligning Checker Name Role Phone Owen Mars Primary Care Provider Deja Carmichael Unavailable [phone] Allergies Allergen (clinical drug ingredient) Drug/Non Drug Allergy documented on EMR Reaction Allergy Type Onset Date Status Penicillin Unknown Drug Allergy Active tetracycline Tetracycline Unknown Drug Allergy A ctive Reason For Referral Reason Plastic surgery or g eneral surgery at for hidradenitis evaluation Diagnosis 1 Hidradenitis suppura tiva (L73.2) Referral Organization [facility] DAVIE COATES Referring Provider First Name Owen Referring Provider Last Name Madisyn Referring Provider Speciality Internal M edicine General Notes Olga Rosario 11:41:02 AM > done on [facility] portal and they will call her to schedule Referral Priority Routine REASON FOR VISIT rash on abdomen since last , HS flare Medications Medication SIG (Take, Route, Frequency, Duration) Notes Start Date End Date Status Levocetirizine Dihydrochloride 5 MG 1 tab(s) orally once a day (in the evening); Duration: 30 days Active buPROPion HCl ER (XL) 150 MG 1 tab(s) orally every 24 hours; Duration: 30 days Active Montelukast Sodium 10 mg TAKE ONE TABLET BY MOUTH EVERY DAY; Duration: 30 Active Potassium Chloride ER 10 mEq TAKE ONE CAPSULE BY MOUTH EVERY DAY; Duration: 30 Active Advair HFA 115-21 MCG/ACT INHALE TWO PUFFS BY MOUTH TWICE DAILY; Duration: 30 days Active Atenolol 50 MG 1 tab(s) orally once a day; Duration: 90 days Active Align 4 MG 1 CAP(S) ORALLY ONCE A DAY; Duration: 30 DAYS *Please review and pick correct strength-formulat ion from Regaalo options. If intended option is not shown, discontinue and re-order from Quick Search* 05/20/2024 Active Ondansetron 4 MG 1 tab(s) orally every 6 hours; Duration: 7 days 07/06/2024 Active metFORMIN HCl 1000 MG 1 tab(s) orally 2 times a day; Duration: 90 days Active Escitalopram Oxalate 20 MG 1 tab(s) orally once a day; Duration: 30 Active Doxycycline Hyclate 100 MG One tab PO twice daily; Duration: 10 days 11/02/2024 Active Clindamycin HCl 300 MG 1 cap(s) orally 3 times a day; Duration: 10 days 11/02/2024 Active Fluticasone Propionate 50 MCG/ACT as directed in each nostril once a day; Duration: 30 day(s) Active Mupirocin 2 % 1 alden applied topically 3 times a day; Duration: 7 days 05/13/2024 Active Spironolactone 100 MG 1 tab(s) orally twice daily; Duration: 30 days Active predniSONE 20 MG 3 tabs orally once a day for two days, then 2 daily for 2 days, then one daily for two days; Duration: 6 day(s) 11/02/2024 Active NURTEC ODT 75 MG 1 TAB(S) ORALLY ONCE *Please re view for potential replacement for e-prescription and drug interaction check* 12/31/2021 Active Vitamin D2 1.25 MG 1 CAP(S) ORALLY ONCE A WEEK; Duration: 86 DAYS *Please review and pick correct strength-formulat ion from Regaalo options. If intended option is not shown, discontinue and re-order from Quick Search* Active Omeprazole 40 MG 1 cap(s) orally once a day; Duration: 30 days Active Nyamyc 233348 UNIT/GM 1 alden applied topically 3 times a day; Duration: 14 days prn 01/06/2024 Active Folic Acid 1 MG 1 tab(s) orally once a day; Duration: 30 day(s) Active HUMIRA 40 MG/0.8 ML DIRECTED SUBCUTANEOUSLY EVERY WEEK *Please review for potential replacement for e-prescription and drug interaction check* Active Chlorhexidine Gluconate 4% 1 ALDEN APPLIED TOPICALLY ONCE; Duration: 1 DAY(S) prn *Please review and pick correct strength-formulat ion from Regaalo options. If intended option is not shown, discontinue and re-order from Quick Search* 09/30/2018 Active Problems Problem Type SNOMED Code ICD Code Onset Dates Problem Status W/U Status Risk Notes Problem Hidradenitis suppurativa (50356049) Hidradenitis suppurativa (L73.2) Active confirmed Vital Signs Temperature 98.6 degrees Fahrenheit 11/03/19 25 Blood pressure systolic 125 mm Hg 11/03/19 25 Blood pressure diastolic 80 mm Hg 025 Heart Rate 88 /min 11/02/2024 Height 5 ft 4 in in 11/02/2024 Weight 204 lbs 11/02/2024 BMI 35.01 kg/m2 11/02/2024 Encounters Encounter Location Date Provider Diagnosis [address] [address] 11/02/2024 Owen Mars Insect bite (nonvenomous) of abdominal wall, initial encounter S30.861A and Hidradenitis suppurativa L73.2 Assessments Encounter Date Diagnosis (ICD Code) Assessment Notes Treatment Notes Treatment Clinical Notes Section Notes 11/02/2024 Insect bite (nonvenomous) of abdominal wall, initial encounter (ICD-10 - S30.861A) Continue supportive measures as well as antibiotics 11/02/2024 Hidradenitis suppurativa (ICD-10 - L73.2) Start Doxycycline, Clindamycin, and Predisone pack Follow-up with specialist Plan Of Treatment Medication Medication Name Sig Start Date Stop Date Notes Doxycycline Hyclate 100 MG One tab PO tw ice daily; Duration: 10 days 11/02/2024 Clindamycin HCl 300 MG 1 cap(s) orally 3 times a day; Duration: 10 days 11/02/2024 predniSONE 20 MG 3 tabs orally once a day for two days, then 2 daily for 2 days, then one daily for two days; Duration: 6 day(s) 11/02/2024 Treatment Notes Assessment Notes Insect bite (nonvenomous) of abdominal wall, initial encounter Continue supportive measures as well as antibiotics Hidradenitis suppurativa Start Doxycycline, Clindamycin, and Predisone pack Follow-up with specialist Referrals Referral Date Details 11/02/2024 11/02/2024, Plastic surgery or general surgery at for hidradenitis evaluation Next Appt Details Follow Up: prn, Reason: Provider Name:Owen Mars, 12/22/2024 12:00:00 PM, [address], [place], [address], Progress Notes * Napoleon GUO LDOB:[birth year] (44 yo F)Acc No.[id number]:11/02/2024 Progress Notes Patient: Napoleon BARONE Provider: Yudy Mars MD :1980 A ge:44 Y S ex:Female Date:11/02/2024 Address:[address] [place] [address], [id number] Subjective: * Chief Complaints: * 1 . rash on abdomen since last . 2. HS flare. * HPI: g en: Ms. Guo is a 44 year old female presenting to the clinic for rash on abdomen and Hidradenitis Suppuravita flare. She has never followed with anyone for her HS flare. She has noticed it worsening on her lower abdomen and thighs over the past few months. The rash on her abdomen and arms started on . It is pruritic but not painful. She found ants in her house and thinks they might have gotten into her bed. She reports rubbing alcohol has helped some. * Medical History: A llergies, Asthma, Depression, Crohns disease - followed by Dr Sams in [place] - colonoscopy 09/10 with tubular adenomas, HTN, Hidradenitis supp., MRSA LT EAR. * Medications: T aking Folic Acid 1 MG Tablet 1 tab(s) orally once a day , Taking HUMIRA 40 MG/0.8 ML KIT DIRECTED SUBCUTANEOUSLY EVERY WEEK , Notes to Pharmacist: *Please review for potential replacement for e-prescription and drug interaction check*, Taking Chlorhexidine Gluconate 4% SOAP 1 ALDEN APPLIED TOPICALLY ONCE , Notes to Pharmacist: prn *Please review and pick correct strength-formulation from Regaalo options. If intended option is not shown, discontinue and re-order from Quick Search*, Taking NURTEC ODT 75 MG TABLET, DISINTEGRATING 1 TAB(S) ORALLY ONCE , Notes to Pharmacist: *Please review for potential replacement for e-prescription and drug interaction check*, Taking Vitamin D2 1.25 MG CAPSULE 1 CAP(S) ORALLY ONCE A WEEK , Notes to Pharmacist: *Please review and pick correct strength-formulation from Regaalo options. If intended option is not shown, discontinue and re-order from Quick Search*, Taking Omeprazole 40 MG Capsule Delayed Release 1 cap(s) orally once a day , Taking Nyamyc 165155 UNIT/GM Powder 1 alden applied topically 3 times a day , Notes to Pharmacist: prn, Taking Fluticasone Propionate 50 MCG/ACT Suspension as directed in each nostril once a day , Taking Mupirocin 2 [...] *Please review and pick correct strength-formulation from Regaalo options. If intended option is not shown, discontinue and re-order from Quick Search*, Taking Ondansetron 4 MG Tablet Disintegrating 1 tab(s) orally every 6 hours , Taking metFORMIN HCl 1000 MG Tablet 1 tab(s) orally 2 times a day , Taking Levocetirizine Dihydrochloride 5 MG Tablet 1 tab(s) orally once a day (in the evening) , Taking buPROPion HCl ER (XL) 150 MG Tablet Extended Release 24 Hour 1 tab(s) orally every 24 hours , Taking Montelukast Sodium 10 mg Tablet TAKE ONE TABLET BY MOUTH EVERY DAY , Taking Potassium Chloride ER 10 mEq Capsule Extended Release TAKE ONE CAPSULE BY MOUTH EVERY DAY , Taking Advair HFA 115-21 MCG/ACT Aerosol INHALE TWO PUFFS BY MOUTH TWICE DAILY , Medication List reviewed and reconciled with the patient * Allergies: P enicillin, Tetracycline: Allergy. Objective: * Vitals: N urse: dw, Pain: 3, Temp: 98.6, RR: 20, HR: 88, BP: 125/80, Ht: 5 ft 4 in, Wt: 204, BMI:35.01. * Examination: G eneral Examination: General P leasant and Cooperative, NAD on RA,. Heart: R egular Rate and Rhythm, no murmur, rubs or gallops. Lungs: L CTAB, No wheezes, crackles or rhonchi, Good air movement,. Skin: p apules throughout her abdomen and arms, erythematous patches and nodules throughout lower abdomen and upper thighs. Psych N ormal Mood/Affect. Assessment: * Assessment: 1. I nsect bite (nonvenomous) of abdominal wall, initial encounter - S30.866D (Primary) ? 2 . H idradenitis suppurativa - L73.2 Plan: * Treatment: 2. H idradenitis suppurativa Start Doxycycline Hyclate Tablet, 100 MG, One tab, PO, twice daily, 10 days, 20, Refills 0; S tart Clindamycin HCl Capsule, 300 MG, 1 cap(s), orally, 3 times a day, 10 days, 30 Capsule, Refills 0. Notes: Start Doxycycline, Clindamycin, and Predisone pack Follow-up with specialist Referral To: Reason:Plastic surgery or general surgery at for hidradenitis evaluation * Follow Up: p rn * * Sign off status: Completed true * Provider: Yudy Mars MD Date: 0 11/02/2024 Generated for Dignai kobe/Radha/eTransmitting on: 0 12/09/2024 12:56 PM EDT History and Physical Notes * Examination Category Sub-Category Detail Notes Category Not es General Examination Heart: Regular Rate and Rhythm, no murmur, rubs or gallops Lungs: LCTAB, No wheezes, c rackles or rhonchi, Good air movement, Skin: papules throughout h er abdomen and arms, erythematous patches and nodules throughout lower abdomen and upper thighs General Pleasant and Coopera tive, NAD on RA, Psych Normal Mood/Affect Consultation Request Notes Referral Date Referring Provider Referred Provider Not es 11/02/2024 Owen Mars , Plastic surg nataly or general surgery at for hidradenitis evaluation
--- OUTSIDE RECORDS SUMMARY | 2024-11-09 07:00 | XMS_ITS ---
Author Organization [facility] Address [address] [place] [address] Care Team Providers Care Assistant Case Manager Name Role Phone Owen Mars Primary Care Provider Deja Carmichael Unavailable [phone] Allergies Allergen (clinical drug ingredient) Drug/Non Drug Allergy documented on EMR Reaction Allergy Type Onset Date Status Penicillin Unknown Drug Allergy Active tetracycline Tetracycline Unknown Drug Allergy A ctive REASON FOR VISIT FU Medications Medication SIG (Take, Route, Frequency, Duration) Notes Start Date End Date Status Folic Acid 1 MG 1 tab(s) orally once a day; Duration: 30 day(s) Active Semaglutide(0.25 or 0.5MG/DOS) 2 MG/3ML as directed Subcutaneous 11/09/2024 Active Atenolol 50 mg TAKE ONE TABLET BY MOUTH EVERY DAY; Duration: 90 Active Spironolactone 100 mg TAKE ONE TABLET BY MOUTH TWICE DAILY; Duration: 30 Active Escitalopram Oxalate 20 mg TAKE ONE TABLET BY MOUTH EVERY DAY; Duration: 30 Active Potassium Chloride ER 10 mEq TAKE ONE CAPSULE BY MOUTH EVERY DAY; Duration: 30 Active Clindamycin HCl 300 MG 1 cap(s) orally 3 times a day; Duration: 10 days 11/02/2024 Active Advair HFA 115-21 MCG/ACT INHALE TWO PUFFS BY MOUTH TWICE DAILY; Duration: 30 days Active buPROPion HCl ER (XL) 150 MG 1 tab(s) orally every 24 hours; Duration: 30 days Active Montelukast Sodium 10 mg TAKE ONE TABLET BY MOUTH EVERY DAY; Duration: 30 Active metFORMIN HCl 1000 MG 1 tab(s) orally 2 times a day; Duration: 90 days Active Levocetirizine Dihydrochloride 5 MG 1 tab(s) orally once a day (in the evening); Duration: 30 days Active Ondansetron 4 MG 1 tab(s) orally every 6 hours; Duration: 7 days 07/06/2024 Active Fluticasone Propionate 50 MCG/ACT as directed in each nostril once a day; Duration: 30 day(s) Active Mupirocin 2 % 1 jackie applied topically 3 times a day; Duration: 7 days 05/13/2024 Active Omeprazole 40 MG 1 cap(s) orally once a day; Duration: 30 days Active Nyamyc 871239 UNIT/GM 1 jackie applied topically 3 times a day; Duration: 14 days prn 01/06/2024 Active Align 4 MG 1 CAP(S) ORALLY ONCE A DAY; Duration: 30 DAYS *Please review and pick correct strength-formulat ion from [employer] options. If intended option is not shown, discontinue and re-order from Quick Search* 05/20/2024 Active NURTEC ODT 75 MG 1 TAB(S) ORALLY ONCE *Please re view for potential replacement for e-prescription and drug interaction check* 12/31/2021 Active Vitamin D2 1.25 MG 1 CAP(S) ORALLY ONCE A WEEK; Duration: 86 DAYS *Please review and pick correct strength-formulat ion from [employer] options. If intended option is not shown, discontinue and re-order from Quick Search* Active HUMIRA 40 MG/0.8 ML DIRECTED SUBCUTANEOUSLY EVERY WEEK *Please review for potential replacement for e-prescription and drug interaction check* Active Chlorhexidine Gluconate 4% 1 JACKIE APPLIED TOPICALLY ONCE; Duration: 1 DAY(S) prn *Please review and pick correct strength-formulat ion from [employer] options. If intended option is not shown, discontinue and re-order from Quick Search* 09/30/2018 Active Vital Signs Temperature 98 degrees Fahrenheit 11/09/2024 Blood pressure systolic 122 mm Hg 11/10/19 25 Blood pressure diastolic 80 mm Hg 025 Heart Rate 82 /min 11/09/2024 Height 5 ft 4 in in 11/09/2024 Weight 207 lbs 11/09/2024 BMI 35.53 kg/m2 11/09/2024 Encounters Encounter Location Date Provider Diagnosis [facility] [address] [place] [address] 11/09/2024 Owen Mars PCOS (polycystic ovarian syndrome) E28.2 and BMI 35.0-35.9,adult Z68.35 Assessments Encounter Date Diagnosis (ICD Code) Assessment Notes Treatment Notes Treatment Clinical Notes Section Notes 11/09/2024 PCOS (polycystic ovarian syndrome) (ICD-10 - E28.2) Patient really needs metabolic improvement and issues with PCOS need help. Already maxed out on oral therapy. Start GLP agent. I gave patient samples, instructed on how to use the medication. Will follow-up in 6 weeks. 11/09/2024 BMI 35.0-35.9,adul t (ICD-10 - Z68.35) Plan Of Treatment Medication Medication Name Sig Start Date Stop Date Notes Semaglutide(0.25 or 0.5MG/DO S) 2 MG/3ML as directed Subcutaneous 11/09/2024 Treatment Notes Assessment Notes PCOS (polycystic ovarian syndrome) Patient really needs metabolic improvement and issues with PCOS need help. Already maxed out on oral therapy. Start GLP agent. I gave patient samples, instructed on how to use the medication. Will follow-up in 6 weeks. Next Appt Details Follow Up: prn,6 Weeks, Reas on: Provider Name:Owen Mars, 12/22/2024 12:00:00 PM, [address] [facility] [address] [facility], [address], [place], [address], Progress Notes * Napoleon GUO LDOB:[birth year] (44 yo F)Acc No.[id number]:11/09/2024 Progress Notes Patient: Yennifer BISMARKNapoleon HOWARD Prosper Provider: Yudy Mars MD :1980 A ge:44 Y S ex:Female Date:11/09/2024 Address:[address] [place] [id number] Subjective: * Chief Complaints: * 1 . FU. * HPI: g en: Overall patient does not feel much better in regards to her chronic wounds and hidradenitis. Did get a call from [facility]. She is somewhat nervous about this because surgery on her underarms was not as successful as she would have hoped. Has not lost weight on metformin or spironolactone. * Medical History: A llergies, Asthma, Depression, Crohns disease - followed by Dr Sams in [place] - colonoscopy 09/10 with tubular adenomas, HTN, Hidradenitis supp., MRSA LT EAR. * Surgical History: c -section , T&A , septoplasty , colonoscopy , tubal ligation , Appendectomy 08/2018. * Hospitalization/Major Diagno stic Procedure: a cathryn , Crohns . * Family History: F ather: alive, diagnosed with Hypertension, Heart Disease. M other: , diagnosed with Diabetes, Hypertension. P aternal Grand Father: . P aternal Grand Mother: . M aternal Grand Father: . M aternal Grand Mother: . S iblings: alive. C nirmalen: alive. 1 son(s) - healthy. . * Medications: T aking Folic Acid 1 MG Tablet 1 tab(s) orally once a day , Taking HUMIRA 40 MG/0.8 ML KIT DIRECTED SUBCUTANEOUSLY EVERY WEEK , Notes to Pharmacist: *Please review for potential replacement for e-prescription and drug interaction check*, Taking Chlorhexidine Gluconate 4% SOAP 1 JACKIE APPLIED TOPICALLY ONCE , Notes to Pharmacist: prn *Please review and pick correct strength-formulation from [employer] options. If intended option is not shown, discontinue and re-order from Quick Search*, Taking NURTEC ODT 75 MG TABLET, DISINTEGRATING 1 TAB(S) ORALLY ONCE , Notes to Pharmacist: *Please review for potential replacement for e-prescription and drug interaction check*, Taking Vitamin D2 1.25 MG CAPSULE 1 CAP(S) ORALLY ONCE A WEEK , Notes to Pharmacist: *Please review and pick correct strength-formulation from [employer] options. If intended option is not shown, discontinue and re-order from Quick Search*, Taking Omeprazole 40 MG Capsule Delayed Release 1 cap(s) orally once a day , Taking Nyamyc 469025 UNIT/GM Powder 1 jackie applied topically 3 times a day , Notes to Pharmacist: prn, Taking Fluticasone Propionate 50 MCG/ACT Suspension as directed in each nostril once a day , Taking Mupirocin 2 % Ointment 1 jackie applied topically 3 times a day , Taking Align 4 MG CAPSULE 1 CAP(S) ORALLY ONCE A DAY , Notes to Pharmacist: *Please review and pick correct strength-formulation from [employer] options. If intended option is not shown, [...] TWO PUFFS BY MOUTH TWICE DAILY , Taking Clindamycin HCl 300 MG Capsule 1 cap(s) orally 3 times a day , Taking Spironolactone 100 mg Tablet TAKE ONE TABLET BY MOUTH TWICE DAILY , Taking Escitalopram Oxalate 20 mg Tablet TAKE ONE TABLET BY MOUTH EVERY DAY , Taking Atenolol 50 mg Tablet TAKE ONE TABLET BY MOUTH EVERY DAY , Discontinued predniSONE 20 MG Tablet 3 tabs orally once a day for two days, then 2 daily for 2 days, then one daily for two days , Discontinued Doxycycline Hyclate 100 MG Tablet One tab PO twice daily , Medication List reviewed and reconciled with the patient * Allergies: P enicillin, Tetracycline: Allergy. Objective: * Vitals: N urse: dw, Pain: 2, Temp: 98, RR: 20, HR: 82, BP: 122/80, Ht: 5 ft 4 in, Wt: 207, BMI:35.53. * Examination: G eneral Examination: gideon Roberts. Cardiopulmonary assessment unremarkable. Hidradenitis remains the same. Significant wounds across her abdomen and in her axillary region. Assessment: * Assessment: 1. P COS (polycystic ovarian syndrome) - E28.2 (Primary) 2 . B NC 35.0-35.9,adult - Z68.35 Plan: * Treatment: * Follow Up: p jose david,6 Weeks * * Sign off status: Completed true * Provider: Yudy Mars MD Date: 0 11/09/2024 Generated for oTrres bullock/Radha/Kolbyitting on: 12/09/2024 12:55 PM EDT History and Physical Notes * HPI (History of Present Illness) Category Sub-Category Detail Notes Category Not es gen Overall patient does not feel much better in regards to her chronic wounds and hidradenitis. Did get a call from [facility]. She is somewhat nervous about this because surgery on her underarms was not as successful as she would have hoped. Has not lost weight on metformin or spironolactone. Examination Category Sub-Category Detail Notes Category Not es General Examination Obese, pleasant. Cardiopulmonary assessment unremarkable. Hidradenitis remains the same. Significant wounds across her abdomen and in her axillary region.
[2024-12-09] VITALS (13 sets, daily range): BP systolic 97–133; BP diastolic 60–85; PULSE 73–90; RESP 18; TEMP 36.9–37.1; O2SAT 94–99; BMI 32.5
--- NOTE | 2024-12-09 12:44 | ED_ITS ---
<Statement entered by Mingo Guido MD - 12/09/24 15:48> I dependently examined this patient. She has cranial nerve to the top intact mucous finger and sensory in upper and lower extremities are intact. She has no nystagmus on my examination. It is very positional with her vertigo, I suspect BPPV. Nevertheless she did report a slight headache, felt reasonable to screen with CTA for any vascular abnormalities or dissection. On my interpretation of the CTs, they are unremarkable and confirmed by radiologist final read. She had some improvement with meclizine here, not completely back to baseline, but she would likely need vestibular rehab. Extremely low suspicion for posterior circulation stroke given positional nature and absence of significant comorbidities and negative cross-sectional imaging. Strict precautions discussed all questions or patient and will plan on discharge. I was consulted by the JACKIE, and we discussed the complexity of problems being addressed. I approved the treatment and management plan for this patient's care in the emergency department, thus performing a substantial portion of the medical decision making. Mingo Guido MD Discharge Plan Disposition Patient Disposition: Admitted Condition: Fair Prescriptions Prescriptions: New prednisone 50 mg tablet 50 mg PO DAILY 5 Days Qty: 5 0RF meclizine 25 mg tablet 25 mg PO QID PRN (Reason: dizziness) Qty: 20 0RF No Action cetirizine 10 mg tablet 10 mg PO DAILY Patient Comments: TAKE ONE TABLET BY MOUTH EVERY DAY bupropion HCl 300 mg tablet extended release 24 hr 300 mg PO DAILY Patient Comments: TAKE ONE TABLET BY MOUTH EVERY DAY azelastine 137 mcg (0.1 %) spray,non-aerosol 2 spray intranasal BID Qty: 30 3RF Rx Instructions: administer into each nostril nystatin [Nystop] 100,000 unit/gram powder 0 unit topical DAILY PRN (Reason: prn) Patient Comments: APPLY TOPICALLY TO THE AFFECTED AREA(S) THREE TIMES DAILY FOR FOURTEEN DAYS ketotifen fumarate 0.025 % (0.035 %) drops 2 drp ophthalmic (eye) DAILY Patient Comments: instill 1 drop IN EACH EYE TWICE DAILY Humira(CF) Pen 40 mg/0.4 mL pen injector kit 40 mg SQ WEEKLY Qty: 4 12RF Rx Instructions: Please inject 40 mg subcutaneously weekly fluticasone propion-salmeterol [Advair HFA] 115-21 mcg/actuation HFA aerosol inhaler 2 puff INHALATION BID Patient Comments: INHALE TWO PUFFS BY MOUTH TWICE DAILY --RINSE MOUTH AFTER USE-- potassium chloride 10 mEq capsule, extended release 10 meq PO DAILY Patient Comments: TAKE ONE CAPSULE BY MOUTH EVERY DAY spironolactone 100 mg tablet 100 mg PO DAILY Patient Comments: TAKE ONE TABLET BY MOUTH TWICE DAILY omeprazole 40 mg capsule,delayed release(DR/EC) 40 mg PO DAILY Patient Comments: TAKE ONE CAPSULE BY MOUTH EVERY DAY montelukast 10 mg tablet 10 mg PO DAILY Patient Comments: TAKE ONE TABLET BY MOUTH EVERY DAY atenolol 50 mg tablet 50 mg PO DAILY Patient Comments: TAKE ONE TABLET BY MOUTH EVERY DAY loratadine 10 mg tablet 10 mg PO DAILY Patient Comments: TAKE ONE TABLET BY MOUTH EVERY DAY escitalopram oxalate 20 mg tablet 20 mg PO DAILY Patient Comments: TAKE ONE TABLET BY MOUTH EVERY DAY Referrals Follow up/Referrals: Yolanda Arroyo APRN [Nurse Practitioner, Ear, Nose, Throat] - See instructions Owen Mars MD [Primary Care Provider, Internal Medicine] - See instructions Clinical Impressions Clinical Impression: Dizziness Print Language Print Language: [place] Discharge ED Provider: Mingo Guido General Adult HPI General Chief complaint: Dizziness Stated complaint: dizzy, heart fluttering, nausea Time Seen by Provider: 12/09/24 12:44 History of Present Illness HPI narrative: Patient presents for evaluation of dizziness. Patient states that she has been dizzy since Friday. She states that it is gotten worse since then. She does state that it is worse when standing or turning her head to the right. She denies any focal neurologic symptoms. She also reports that she feels that her heart is fluttering when she is dizzy. She has a past medical history of morbid obesity with a BMI of 32 hypertension depression and GERD. She denies any shortness of breath chest pain fever chills hemoptysis hematochezia melena hematemesis hematuria dysuria. Related Data Home Medications ?Medication ?Instructions ?Recorded ?Confirmed atenolol 50 mg tablet 50 mg PO DAILY 10/29/2308/17 escitalopram oxalate 20 mg tablet 20 mg PO DAILY 10/2808/26/24 loratadine 10 mg tablet 10 mg PO DAILY 10/29/2308/17 montelukast 10 mg tablet 10 mg PO DAILY 10/29/2308/17 omeprazole 40 mg capsule,delayed 40 mg PO DAILY 08/26/24 release potassium chloride 10 mEq 10 meq PO DAILY 10/29/2303/12 capsule,extended release spironolactone 100 mg tablet 100 mg PO DAILY 10/29/23 08/26/24 bupropion HCl 300 mg 24 hr tablet, 300 mg PO DAILY 06/1108/26/24 extended release cetirizine 10 mg tablet 10 mg PO DAILY 11/17/2308/17 nystatin 100,000 unit/gram topical 0 unit topical OLIVIER Y PRN prn 02/02/24 08/26/24 powder (Nystop) ketotifen fumarate 0.025 % (0.035 2 drp ophthalmic (ey e) DAILY 08/25/24 08/26/24 %) eye drops fluticasone propionate 115 2 puff inhalation BID 08/2608/26/24 mcg-salmeterol 21 mcg/actuation HFA inhaler (Advair HFA) Previous Rx's ?Medication ?Instructions ?Recorded azelastine 137 mcg (0.1 %) nasal 2 spray intranasal BI D #30 mL 01/15/24 spray adalimumab 40 mg/0.4 mL 40 mg (0.4 mL) SQ WEEKLY #4 ea 11/22/24 subcutaneous pen kit (Humira(CF) Pen) meclizine 25 mg tablet 25 mg PO QID PRN dizziness # 20 tabs 12/09/24 prednisone 50 mg tablet 50 mg PO DAILY 5 days #5 tab s 12/09/24 Allergies Allergy/AdvReac Type Severity Reaction Status Date / Time tetracycline (TETRACYCLINE) Allergy Severe Difficulty Verified 08/26/24 09:55 Breathing Penicillins (PENICILLINS) Allergy Unknown Unknown Verified 08/26/24 09:55 allergy reaction [facility] Disclaimer: The information contained in this section may have been updated after the patient was seen, as this information can be updated by other users. Medical History Chronic otitis media of left ear with perforated tympanic membrane Recurrent candidiasis of vagina Candidal intertrigo Tinnitus, left ear Otalgia, left ear Yeast vaginitis Vulvar lesion Mixed hearing loss of left ear Normal hearing test of right ear Cerumen impaction Drainage from left ear Hearing difficulty of left ear Hidradenitis suppurativa Anemia Anxiety Cancer Asthma Hypertension Surgical History H/O tubal ligation History of colonoscopy History of incision and drainage History of tympanostomy tube placement History of tonsillectomy History of cholecystectomy History of section History of appendectomy Family History Other Diabetes Hypertension Social History Smoking Status: Former smoker tobacco type: cigarettes packs per day: 1 second hand exposure: Yes alcohol intake: current alcohol intake frequency: holidays/special occasions only substance use type: denies use current occupational status: unemployed Travel in the last 8 weeks?: None housing: house caffeine: Yes Have you lived/traveled outside [place] in past 30 days?: No Contact w/someone who lives/traveled outside US past 30 days?: No Exposure to someone with infectious disease in past 14 days?: No Do you have a fever (greater than 100.4 F or 38 C)?: No Have you tested positive for COVID-19?: No Exposed to someone with COVID-19 in past 14 days?: No Do you have a sore throat?: No Do you have a cough?: No Do you have any weakness?: No Do you have any diarrhea?: No Are you experiencing any unusual bleeding?: No Do you have any muscle aches/pain?: No Do you have any abdominal pain?: No Are you experiencing loss of taste or smell?: No Other Medical History Have you received the Flu Vaccine for this season: No Have you received the Pneumonia Vaccine: No ROS Obtained: Yes Systems reviewed as appropriate & no additional complaints except as documented Physical Exam General General appearance: alert and in no apparent distress Neck Neck exam: Present lymphadenopathy Respiratory Respiratory exam: Present normal lung sounds bilaterally Cardiovascular Cardiovascular exam: Present regular rate Abdominal Exam Abdominal exam: Present guarding Neurological Exam Neurological exam: Present alert, oriented X3, CN II-XII intact and normal gait; Absent motor sensory deficit Medical Decision Making Medical Records Medical records reviewed: Yes I reviewed the patient's medical records. Screening: Per USPSTF and CDC recommendations, given the prevalence of disease in our region, it is our hospital?s policy to screen for HIV and viral Hepatitis for all patients aged 18 and over and those with ongoing risk factors. Librado Inquiry Pt receiving controlled substance: No Vital Signs: 12/09/24 12:44 12/09/24 13:00 12/09/24 14:00 Temperature 98.6 F Temperature Source Oral Pulse Rate 85 82 Pulse Rate [Apical] 90 Respiratory Rate 18 Blood Pressure 97/75 L 106/69 L Blood Pressure [Right Arm] 133/85 Blood Pressure Mean [Right Arm] 101 Blood Pressure Source [Right Arm] Automatic Cuff Blood Pressure Position [Right Arm] Sitting 02 Sat by Pulse Oximetry 97 97 98 Oxygen Delivery Method Room Air 12/09/24 14:30 12/09/24 15:00 12/09/24 15:30 Temperature Temperature Source Pulse Rate 84 78 78 Pulse Rate [Apical] Respiratory Rate Blood Pressure 121/79 105/69 L 109/68 L Blood Pressure [Right Arm] Blood Pressure Mean [Right Arm] Blood Pressure Source [Right Arm] Blood Pressure Position [Right Arm] 02 Sat by Pulse Oximetry 97 98 97 Oxygen Delivery Method Lab Data Lab results reviewed: Yes I reviewed the patient's lab results. Lab Results 12/09/24 12:48: WBC 14.0 H, RBC 3.94 L, Hgb 12.2, Hct 37.5, MCV 95.2, MCH 31.0, MCHC 32.5, RDW 11.8, Plt Count 505 H, MPV 10.0, Neut % (Auto) 70.3, Lymph % (Auto) 18.8, Petroleum % (Auto) 7.0, Eos % (Auto) 3.4, Baso % (Auto) 0.2, Neut # (Auto) 9.8 H, Lymph # (Auto) 2.6, Petroleum # (Auto) 1.0, Eos # (Auto) 0.5 H, Baso # (Auto) 0.0, ESR 79 H, Sodium 138, Potassium 4.0, Chloride 101, Carbon Dioxide 28, Anion Gap 13.0, BUN 9, Creatinine 0.90, Estimated Creat Clear 111, Estimated GFR 69, Est GFR ( Amer) 83, Glucose 109 H, Calcium 9.5, Magnesium 1.6, Total Bilirubin 0.6, AST 34, ALT 23, Alkaline Phosphatase 77, C-Reactive Protein 68.4 H, Total Protein 8.7 H, Albumin 4.4, Globulin 4.3 H, Albumin/Globulin Ratio 1.0 L, TSH 1.23, Free T4 Index 2.4 L, Thyroxine (T4) 7.4, T3 Uptake 33, Serum HCG, Qual Negative 12/09/24 12:48 12/09/24 12:48 Orders (Tests/Meds): ED MEDICATIONS Generic Name Dose Route Start Last Admin Trade Name Freq PRN Reason Stop Dose Admin Sodium Chloride 10 ml 12/09/24 14:24 12/09/24 14:25 Sodium Chloride 0.9% 10ml Syr (Rad Only) IV 01/08/25 14:23 10 ml NEEDED PRN Administration Maintain IV Site Discontinued Medications Generic Name Dose Route Start Last Admin Trade Name Freq PRN Reason Stop Dose Admin Acetaminophen 1,000 mg 12/09/24 13:33 12/09/24 13:44 Acetaminophen 500mg Tab PO 12/09/24 13:34 1,000 mg ONCE ONE Administration Diazepam 5 mg 12/09/24 15:13 12/09/24 15:19 Diazepam 5mg Tablet PO 12/09/24 15:14 5 mg ONCE ONE Administration Sodium Chloride 1,000 mls @ 999 mls/hr 12/09/24 13:21 12/09/24 13:47 Sod Chlor 0.9% 1000ml Bag IV 12/09/24 14:21 999 mls/hr .Q1H1M ONE Administration Iopamidol 80 ml 12/09/24 14:24 12/09/24 14:25 Iopamidol-370 (76%);100ml Bottle IV 12/09/24 14:25 80 ml ONCE ONE Administration Meclizine HCl 25 mg 12/09/24 12:57 12/09/24 13:13 Meclizine 25mg Tablet PO 12/09/24 12:58 25 mg ONCE ONE Administration Prednisone 60 mg 12/09/24 12:57 12/09/24 13:13 Prednisone 20mg Tab PO 12/09/24 12:58 60 mg ONCE ONE Administration Sodium Chloride 50 ml 12/09/24 14:24 12/09/24 14:25 0.9 % Sodium Chloride 50 Ml Vial IV 12/09/24 14:25 50 ml ONCE ONE Administration ORDERS Category Date Time Status CT angio head Stat Cat Scan 12/09/24 13:[address] angio neck Stat Cat Scan 12/09/24 13:[address] head/brain wo con Stat Cat Scan 12/09/24 13:28 Completed CBC w/Auto Diff [Complete Blood Count Auto Diff] Stat Lab 12/09/24 12:48 Completed CMP [Comprehensive Metabolic Panel] Stat Lab 12/09/24 12:48 Completed CRP [C-Reactive Protein] Stat Lab 12/09/24 12:48 Completed ESR [Erythrocyte Sedimentation Rate] Stat Lab 12/09/24 12:48 Completed HCG Qualitative, Serum Stat Lab 12/09/24 12:48 Completed HIV Combo Stat Lab 12/09/24 12:48 Received Hepatitis C Ab Qual. W/ RFX Stat Lab 12/09/24 12:48 Received Magnesium Stat Lab 12/09/24 12:48 Completed Thyroid Panel Stat Lab 12/09/24 12:48 Completed Medical Decision Narrative: In summary patient is a 44-year-old female who presents to the emergency department for evaluation of dizziness. Patient is hemodynamically stable with a blood pressure 133/85 pulse 90 with sinus rhythm on the bedside monitor breathing 18 times minute satting at 97% on room air upon arrival, afebrile at 98.6. Physical exam is remarkable for a well-nourished well-developed 44-year-old female who otherwise in no acute distress. Pupils equal round reactive to light, cranial nerves II through XII intact grossly to exam, there is no cervical or neck tenderness and she has full range of motion of her C- spine. Patient's symptoms are worse when turning her head to the right. She has no focal neurologic deficits and is able to move all 4 extremities and is ambulatory in the emergency department. Breath sounds clear equal bilaterally to the bases without adventitious sounds. Bilateral tympanic membranes and external auditory canal are normal. Patient did have nystagmus when changing positions along with dizziness. Differential diagnosis includes BPPV versus intracranial lesion or stroke etc. Initial workup will be conducted with hematologic labs CT of head contrast CTA of the head and neck. Initial interventions include meclizine and prednisone. Initial workup reviewed by me and her hematologic labs are significant for white count of 14 normal H&H absolute neutrophil count is 9.8 sed rate is 79 glucose is 109 CRP is 68.4 TSH is 1.23 serum is negative. My informal interpretation of her imaging shows no acute processes prior to radiology read.. Upon repeat evaluation patient had no improvement in her symptoms after initial intervention. While there remains diagnostic uncertainty I suspect she has BPPV however as her symptoms send to be peripheral however I cannot rule out a central cause, we will try oral Valium prior to discharge. Upon repeat evaluation patient states that Valium made her symptoms worse and she is dizzy even lying still. Given this I have had interact discussion with hospital medicine regarding patient presentation MATHEWS and management and she will be admitted for further evaluation and care. Critical Care Critical Care Time Critical Care Time: Yes Attestation: On 12/09/24, the high probability of a clinically significant, sudden or life threatening deterioration of the following system(s) required my full and direct attention, intervention and personal management. The time I documented below is in addition to time spent performing reported procedures but includes the following listed in this critical care notation. Total Time Total Critical Care Time: 30
--- NOTE | 2024-12-09 12:49 | ECG_ITS ---
APPROVED REPORT Exam: Resting ECG HR:90 bpm ECG Measurements Heart Rate 90 AXES TX 159 P 71 QRSd 78 QRS 76 QT 333 T 53 QTc [address] DEVIATION AND MODERATE T-WAVE ABNORMALITY, CONSIDER LATERAL ISCHEMIA [-0.1+ mV T-WAVE IN I/aVL/V5/V6] ABNORMAL ECG UNCONFIRMED REPORT Electronically signed by : Mingo Guido, 12/09/2024 15:51:14
--- OUTSIDE RECORDS SUMMARY | 2024-12-09 12:55 | XMS_ITS | Encounter Summary ---
Author Organization [facility] Address [address] [place] [address] Care Team Providers Care Dental Specialist Name Role Phone Owen Mars MD Primary Care Provider [phone] Reason for Referral * Consultation (Routine) - Authorized Specialty Diagnoses / Procedures Referred By Contac t Referred To Contact Plastic Surgery Diagnoses Hidradenitis suppurativa Owen Mars MD [address] [place] [id number] Phone: tel: fax: Referral ID Status Reason Start Date Expiration Date Visits Requested Visits Authorized [id number] Authorized Specialty Services Required 11/02/2024 05/04/2026 1 1 Encounter Details Date Type Department Care Team (Latest Contact Info) Description 11/02/2024 Community [facility] [address] [place] [address] Owen Mars MD [address] [place] [address] Hidradenitis suppurativa (Primary Dx) Social History Tobacco Use Types Packs/Day Years Used Date Smoking Tobacco: Former Cigarettes 1 15 0 05/19/2006 - 05/19/2021 Passive Smoke Exposure: Never Smokeless Tobacco: Never Alcohol Use Standard Drinks/Week Comments Yes 0 (1 standard drink = 0.6 oz pure alcohol) Alcoholic Drinks/day: Occasional alcohol use PHQ-2 Answer Date Recorded Patient Health Questionnaire-2 Score 2 07/02/2023 Comments No Sex and Gender Information Value Date Recorded Sex Assigned at Female 08/30/2022 10:37 AM EDT Legal Sex Female 6:44 PM EDT Gender Identity Female 08/30/2022 10:37 AM EDT Sexual Orientation Not on file documented as of this encounter Plan of Treatment Scheduled Referrals Name Type Priority Associated Diagnoses Orde r Schedule Ambulatory Referral to Plastic Surgery Outpatient Referral Routine Hidradenitis suppurativa Expected: 11/02/2024 (Approximate), Expires: 05/06/2026 documented as of this encounter Visit Diagnoses Diagnosis Hidradenitis suppurativa- Primary Hidradenitis documented in this encounter Additional Health Concerns Assessment Noted Time A fall risk assessment has been complete d for the patient 07/02/2023 11:41 AM EST A Body Mass Index follow-up plan has been documented for the patient 07/02/2023 12:43 PM EST documented as of this encounter Care Teams Dental Specialist Relationship Specialty Start Date End Date Owen Mars MD [address] [place] [address] [place] [id number] PCP - General Internal Medicine 04/25/22 documented as of this encounter
--- OUTSIDE RECORDS SUMMARY | 2024-12-09 12:55 | XMS_ITS | Clinical Summary ---
Author Organization [facility] Address [address] [place] [address] Care Team Providers Care Nursing Home Social Worker Name Role Phone Owen Mars MD Primary Care Provider [phone] Allergies Active Allergy Reactions Criticality Noted Date Comments Penicillins Hives,Rash Medium 07/29/2013 Tetracycline Shortness of breath,Anaphylaxis High 07/29/2013 Tetracyclines & Related Unknown - Patien t states they do not know rxn details Low 05/14/2013 Medications potassium chloride CR (Klor-Con M10) 10 MEQ ER tablet Take 1 tablet (10 mEq) by mouth 1 (one) time each day. Do not crush or chew. Active omeprazole (PriLOSEC) [address] capsule Take 1 capsule (20 mg) by mouth 1 (one) time each day. Do not crush or chew. Active escitalopram (Lexapro) 20 MG tablet Take 1 tablet (20 mg) by mouth 1 (one) time each day. Active ergocalciferol (Vitamin D-2) 1.25 MG (63979 UT) capsule Take 1 capsule (50,000 Units) by mouth 1 (one) time per week. Takes on Active clindamycin (Cleocin) 300 MG capsule Take 300 mg by mouth 4 (four) times a day. Active hydroCHLOROthiazid e (Microzide) 12.5 MG capsule Take 12.5 mg by mouth 1 (one) time each day. Active spironolactone (Aldactone) 50 MG tablet Take 1 tablet (50 mg) by mouth 1 (one) time each day. Active cetirizine (ZyrTEC) 10 MG tablet Take 1 tablet (10 mg) by mouth 1 (one) time each day. Active folic acid (Folvite) 1 MG tablet Take by mouth 1 (one) time each day. Active montelukast (Singulair) 10 MG tablet Take 1 tablet (10 mg) by mouth every night. Active atenolol (Tenormin) 50 MG tabletIndications: Hypertension Take 25 mg by mouth 1 (one) time each day. Active Advair HFA 115-21 MCG/ACT inhaler Inhale 2 puffs. 06/26/19 23 Active clotrimazole (Lotrimin AF) 1 % cream Apply to left axilla twice daily. 30 g 08/31/19 23 Active omeprazole (PriLOSEC) [address] capsule Take 1 capsule (40 mg) by mouth 1 (one) time each day. 05/27/19 24 Active spironolactone (Aldactone) 100 MG tablet Take 1 tablet (100 mg) by mouth 2 (two) times a day. 05/27/19 24 Active Adalimumab 40 MG/0.4ML Pen-injector Kit 0.4 mL (40 mg). 10/31/19 23 Active buPROPion XL (Wellbutrin XL) 150 MG 24 hr tablet Take 1 tablet (150 mg) by mouth 1 (one) time each day. Active metFORMIN (Glucophage) 1000 MG tablet Take 1 tablet (1,000 mg) by mouth 2 (two) times a day. Active ondansetron ODT (Zofran-ODT) 4 MG disintegrating tablet 1 tablet (4 mg). 11/03/19 23 Active potassium chloride ER (Micro-K) 10 MEQ ER capsule Take 1 capsule (10 mEq) by mouth 1 (one) time each day. 05/27/19 24 Active chlorhexidine (Hibiclens) 4 % external liquidIndications: Hidradenitis suppurativa,Crohn' s disease of colon with complication (CMS/HCC),Polyarth ralgia Apply topically 1 (one) time each day if needed for wound care. 3790 mL 3 07/02/19 24 Active predniSONE (Deltasone) 5 MG tabletIndications: Hidradenitis suppurativa,Crohn' s disease of colon with complication (CMS/HCC),Polyarth ralgia Take 3 tablets for 5 days, then take 2 tablets for 5 days, then take 1 tablet for 5 days. 30 tablet 07/02/19 24 Active clindamycin (Clindagel) 1 % gelIndications:Hid radenitis suppurativa Apply 1 Application topically 2 (two) times a day. 60 g 3 07/02/19 24 Active Active Problems Problem Noted Date Diagnosed Date Hidradenitis suppurativa 06/14/2022 Overview (06/14/2022): Added automatically from request for surgery [id number] Encounters Date Type Department Care Team Description 11/02/2024 [facility] [address] [place] [address] Owen Mars MD Hidradenitis suppurativa (Primary Dx) from Last 3 Months Family History Medical History Relation Name Comments Colon polyps Father Arthritis Mother Zhanna Asthma Mother Zhanna Autoimmune disease Mother Zhanna Diabetes Mother Zhanna Heart disease Mother Zhanna Hypertension Mother Zhanna Miscarriages / Stillbirths Mother Zhanna Obesity Mother Zhanna Recurrent Infections Mother Zhanna Skin Infections Mother Zhanna Relation Name Status Comments Father Mother Zhanna Social History Tobacco Use Types Packs/Day Years Used Date Smoking Tobacco: Former Cigarettes 1 15 0 05/19/2006 - 05/19/2021 Passive Smoke Exposure: Never Smokeless Tobacco: Never Tobacco Cessation:Counseling Given: Not Answered Alcohol Use Standard Drinks/Week Comments Yes 0 [...] AM EDT Sexual Orientation Not on file Last Filed Vital Signs Vital Sign Reading Time Taken Comments Blood Pressure 128/86 07/02/2023 11:36 AM EST Pulse 87 07/02/2023 11:36 AM EST Temperature 36.7 C (98.1 F) 07/02/2023 11:36 AM EST Respiratory Rate 14 07/03/2022 10:30 AM EST Oxygen Saturation 97% 07/02/2023 11:36 AM EST Inhaled Oxygen Concentration - - Weight 94.5 kg (208 lb 5.4 oz) 07/02/2023 11:36 AM EST Height 162.6 cm (5' 4 ) 07/02/2023 11:36 AM EST Body Mass Index 35.76 07/02/2023 11:36 AM EST Plan of Treatment Health Maintenance Due Date Last Done Comments [facility]-HIV Screening 1982 [facility]-/Child/Adol SDOH Screenings 1982 [facility]-Varicella Vaccines (1 of 2 - 13+ 2-dose series) 1995 HPV Vaccines (1 - 3-dose series) 1997 [facility]-DTaP,Tdap,and Td Vaccines (2 - Tdap) 06/29/1997 06/28/1997 [facility]- SDOH Screenings 2000 [facility]-Adult SDOH Screenings 2000 [facility]-Zoster Vaccines (1 of 2) 2001 [facility]-Pap Smear 2003 [facility]-Cervical Cancer Screening 2012 [facility]-HPV/Cotest 2012 [id number] Vaccine (3 - Moderna risk series) 09/27/2020 08/30/2020, 08/02/2020 [facility]-Depression Screening 07/02/2024 07/02/2023 [facility]-Influenza Vaccine (#1) 2025 02/17/2024 [facility]-Hepatitis B Vaccines Completed 001, 11/03/2000, 09/30/2000 [facility]-Hepatitis C Screening Completed 07/02/2023 [facility]-Obesity Intervention Completed 024, 08/30/2022, 07/26/2022, Additional history exists [facility]-HIB Vaccines Aged Out No longer e ligible based on patient's age to complete this topic [facility]-Hepatitis A Vaccines Aged Out No longer eligible based on patient's age to complete this topic [facility]-IPV Vaccines Aged Out No longer e ligible based on patient's age to complete this topic [facility]-Pneumococcal Vaccine: Pediatrics (0 to 5 Years) and At-Risk Patients (6 to 49 Years) Aged Out No longer eligible based on patient's age to complete this topic [facility]-Rotavirus Vaccines Aged Out No lo nger eligible based on patient's age to complete this topic Procedures Procedure Name Priority Date/Time Associated Diagnosis Comments ACUTE HEPATITIS PANEL Routine 07/02/2023 1:40 PM EST Hidradenitis suppurativa Crohn's disease of colon with complication (CMS/HCC) Polyarthralgia from Last 3 Months or Most Recently Relevant to Health Maintenance Results * Acute Hepatitis Panel (07/02/2023 1:40 PM EST) Hepatitis B Surf Antigen Negative Negative 07/02/2023 3:34 PM EST [facility] Hepatitis C Antibody Negative Negative 07/02/2023 3:34 PM EST [facility] Hepatitis A Antibody IgM Negative Negative 07/02/2023 3:34 PM EST [facility] Hepatitis B Core Antibody IgM Negative Negative 07/02/2023 3:34 PM EST [facility] Blood Venous blood specimen / Unknown Venipuncture / Unknown 07/02/2023 1:40 PM EST 07/02/2023 1:40 PM EST Shelley Hernandez APRN LAB BLOOD ORDERABLES Final Result [facility] [address] [place] [address] from Last 3 Months or Most Recently Relevant to Health Maintenance Insurance [place] [id number] [facility] MEDICAID Care Teams Nursing Home Social Worker Relationship Specialty Start Date End Date Owen Mars MD [address] [place] [address] [place] [id number] PCP - General Internal Medicine 04/25/22
--- OUTSIDE RECORDS SUMMARY | 2024-12-09 12:55 | XMS_ITS | Encounter Summary ---
Author Organization [facility] Address [address] [place] [address] Care Team Providers Care Reconciliation Accountant Name Role Phone Owen Mars MD Primary Care Provider [phone] Encounter Details Date Type Department Care Team (Latest Contact Info) Description 03/28/2023 [facility] [address] [place] [address] Deja Carmichael, TRANSCRIBING OPERATOR HEAD [address] [place] [address] Crohn's disease of intestine without complication (CMS/HCC) (Primary Dx); Hidradenitis suppurativa Social History Tobacco Use Types Packs/Day Years Used Date Smoking Tobacco: Former Cigarettes 1 15 2 2021 Passive Smoke Exposure: Never Smokeless Tobacco: Never Alcohol Use Standard Drinks/Week Comments Yes 0 (1 standard drink = 0.6 oz pure alcohol) Alcoholic Drinks/day: Occasional alcohol use Comments No Sex and Gender Information Value Date Recorded Sex Assigned at Female 08/30/2022 10:37 AM EDT Legal Sex Female 6:44 PM EDT Gender Identity Female 08/30/2022 10:37 AM EDT Sexual Orientation Not on file documented as of this encounter Plan of Treatment Not on file documented as of this encounter Visit Diagnoses Diagnosis Crohn's disease of intestine without complication (CMS/HCC)- Primary Hidradenitis suppurativa Hidradenitis documented in this encounter Additional Health Concerns Assessment Noted Time A fall risk assessment has been complete d for the patient 07/26/2022 10:13 AM EST A Body Mass Index follow-up plan has been documented for the patient 08/30/2022 10:57 AM EDT documented as of this encounter Care Teams Reconciliation Accountant Relationship Specialty Start Date End Date Owen Mars MD [address] [place] [address] [place] [id number] PCP - General Internal Medicine 04/25/22 documented as of this encounter
--- OUTSIDE RECORDS SUMMARY | 2024-12-09 12:56 | XMS_ITS | Data Portability ---
Author Organization [facility] ADMIN Address [address] [place] [id number] Care Team Providers Care Pe Manager Name Role Phone [facility] Primary Care Provider Assessment Encounter Date Assessment Date Assessment LastModified by Organization Details LastModified Time 08/26/2022 08/26/2022 42-year-old female past medical history of Crohn's ileitis, fibrostenosing disease, currently on monotherapy with Humira weekly, no prior history of surgery presents for follow-up. 1. Crohn's: Ileitis, no prior history of surgical intervention, fibrostenosing disease. Diagnosed approximately 2009. Started Humira 03/19/16. She restarted Humira 08/03. Previously on balsalazide and Imuran which both have since been discontinued. Continues on Humira monotherapy at this time. Adalimumab level was drawn day after dose of adalimumab and was low at 4.9. Continue weekly dosing. -Refill Humira now, request expedited delivery due to patient being overdue for dose. -Surveillance colonoscopy on 12/2021 was normal. -hepatitis-B immune -annual dermatology visit -annual flu vaccine, up-to-date Tdap, annual Pap, Pneumovax, annual dermatology evaluation -Obtain labs per below 2. GERD: Stable -continue omeprazole -EGD 03/2018 without esophageal changes. [email or web address] Not available 08/26/2022 19:44:36 02/25/2023 02/25/2023 42-year-old female past medical history of Crohn's ileitis, fibrostenosing disease, currently on monotherapy with Humira weekly, no prior history of surgery presents for follow-up. 1. Crohn's: Ileitis, no prior history of surgical intervention, fibrostenosing disease. Diagnosed approximately 2009. Started Humira 03/19/16. She restarted Humira 08/03. Previously on balsalazide and Imuran which both have since been discontinued. Continues on Humira monotherapy at this time. Continue weekly dosing. In symptomatic remission. -Surveillance colonoscopy on 12/2021 was normal. -hepatitis-B immune -annual dermatology visit -annual flu vaccine, up-to-date Tdap, annual Pap, Pneumovax, annual dermatology evaluation -Obtain labs at next OV 2. GERD: Stable -continue omeprazole -EGD 03/2018 without esophageal abnormality. [email or web address] Not available 02/25/2023 21:21:57 12/15/2023 12/15/2023 42-year-old female past medical history of Crohn's ileitis, fibrostenosing disease, currently on monotherapy with Humira weekly, no prior history of surgery presents for follow-up. 1. Crohn's: Ileitis, no prior history of surgical intervention, fibrostenosing disease. Diagnosed approximately 2009. Started Humira 03/19/16. She restarted Humira 08/03. Previously on balsalazide and Imuran which both have since been discontinued. Adalimumab trough level was drawn today before tomorrows dose. Continue on Humira monotherapy at this time. Labs drawn today. -Surveillance colonoscopy on 12/2021 was normal, repeat 12/2027 -hepatitis-B immune -annual dermatology visit -annual flu vaccine, up-to-date Tdap, annual Pap, Pneumovax, annual dermatology evaluation -Obtain labs today: CBC, CMP, Adalimumab trough and antibody 2. GERD: Stable -EGD 03/2018 without esophageal changes. -continue omeprazole (refills sent) 3. Chronic Idiopathic constipation - BM 1-2 times per week. She is having hard stools and straining which has been going on for a couple months. - Previously on Linzess, doesn't remember what dose, but was taken off awhile ago due to loose stools - Start Linzess 145 mcg (samples given today) [email or web address] Not available 12/15/2023 10:44:25 04/20/2024 04/20/2024 43-year-old female with history of Crohn's ileitis, fibrostenosing disease, currently on monotherapy with Humira weekly, no prior history of surgery presents with complaint of right sided abdominal cramping, bloating, and loose stools for the past 5 weeks. 1. Crohn's: Ileitis, no prior history of surgical intervention, fibrostenosing disease. Diagnosed approximately 2009. Started Humira 03/19/16. She restarted Humira 08/03. Previously on balsalazide and Imuran which both have since been discontinued. Continues on Humira monotherapy at this time. Continue weekly dosing. -Unclear if she is dealing with a flare vs. underlying IBS. -Obtain labs per below, including drug and antibody levels. -Check stool PCR and fecal calprotectin. -Surveillance colonoscopy on 12/2021 was normal. -hepatitis-B immune -annual flu vaccine, up-to-date Tdap, annual Pap, Pneumovax, annual dermatology evaluation 2. GERD: Stable -continue omeprazole -EGD 03/2018 without esophageal abnormality. 3. Chronic constipation: Due to loose stools I have recommended we decrease her Linzess dose to 72 mcg daily. She may need to discontinue altogether if not improved. -f/u 2-3 weeks Not available 04/20/2024 16:31:50 05/17/2024 05/17/2024 43-year-old female with history of Crohn's ileitis, fibrostenosing disease, currently on monotherapy with Humira weekly, no prior history of surgery presents with complaint of right sided abdominal cramping, bloating, and loose stools since late February 2024. 1. Crohn's: Ileitis, no prior history of surgical intervention, fibrostenosing disease. Diagnosed approximately 2009. Started Humira 03/19/16. She restarted Humira 08/03. Previously on balsalazide and Imuran which both have since been discontinued. Her Humira dosing was previously increased to once weekly due to low drug levels. -Repeat drug levels show slightly low maintenance drug levels despite once weekly dosing. ESR/CRP are elevated. -Will likely need to consider alternative therapy, although I would like to rule out infectious colitis before considering change in maintenance therapy. I have ask that she collect and submit the stool sample as previously ordered. -Surveillance colonoscopy on 12/2021 was normal. -hepatitis-B immune. TB GTF gold negative on recent lab draw. -annual flu vaccine, up-to-date Tdap, annual Pap, Pneumovax, annual dermatology evaluation -F/u 2-3 weeks, if stool study is negative plan to discuss alternative therapy. May consider Rinvoq, Skyrizi, Entyvio, or Stelara. 2. GERD: Stable -continue omeprazole -EGD 03/2018 without esophageal abnormality. 3. Chronic constipation: We recently decreased her dose to 72 mcg due to recent loose stools. This has improved some. Will need to monitor her bowel habits with change in IBD treatment as she is suspect of having underlying IBS. -f/u 2-3 weeks [email or web address] Not available 05/17/2024 14:26:36 Plan of Treatment Reminders Order Date Submit Date Provider Last Modified By Organization Details Last Modified Time Details Appointments Establish ed Visit 15 min 2024 10:00A M ALICJA DAMIAN NP Not available Not available Not available Lab inflammat ion panel, serum or plasma 2023 024 [facility], [address], [address], [place], [address], 05/01/2024 07:13:25 adalimuma b + adalimuma b Ab panel, IA, serum or plasma 2023 024 [facility], [address], [address], [place], [address], 05/01/2024 07:13:23 CMP, serum or plasma 2023 024 [facility], [address], [address], [place], [address], 05/01/2024 07:13:22 CBC w/ auto diff 2023 024 [facility], [address], [address], [place], [address], 05/01/2024 07:13:19 vitamin D, 25-hydrox y, total, serum 2023 024 [facility], [address], [address], [place], [address], 05/01/2024 07:13:26 iron + TIBC + ferritin, serum 2023 024 [facility], [address], [address], [place], [address], 05/01/2024 07:13:18 Mycobacte rium tuberculo sis stimulate d gamma interfero n, qual, blood 2023 024 [facility], [address], [address], [place], [address], 05/01/2024 07:13:24 gastroint estinal pathogens DNA + RNA panel, MERCY+non-p robe, stool 2023 024 [facility], [address], [address], [place], [address], 05/01/2024 07:13:20 calprotec tin, stool 2023 024 [facility], [address], [address], [place], [address], 05/01/2024 07:13:27 unlisted lab - adalimuma b drug + antibody 2023 024 [facility], [address], [address], [place], [address], 12/24/2023 07:17:25 CMP, serum or plasma 2023 024 [facility], [address], [address], [place], [address], 12/24/2023 07:17:24 CBC w/ auto diff 2023 024 [facility], [address], [address], [place], [address], 12/24/2023 07:17:24 CMP, serum or plasma 2022 023 RADHA Not available 08/26/2022 11:09:51 CBC w/ auto diff 2022 023 RADHA Not available 08/26/2022 10:35:18 Referral None recorded. Procedures None recorded. Surgeries None recorded. Imaging None recorded. Medication Orders Linzess 72 mcg capsule 2023 024 [facility], [address] [place] [address] [place] [address] [address], [id number], 09/16/2024 08:31:12 Linzess 145 mcg capsule 2023 024 [facility], [address] [place] [address] [address] [place], [id number], 08/10/2024 12:09:14 omeprazol e 40 mg capsule,d elayed release 2023 024 [facility], [address] [place] [address] [address] [place], [phone], 11/16/2024 10:01:40 Patient TargetsNo targets recorded. Patient InstructionsNo instructions recorded. Reason for Referral None Reported. Results Created Date Observation Date Name Description Value Unit Range Abnormal Flag Note LastModifiedBy Organization Detail LastModifiedTime 08/27/1908/26/2022 CBC AUTO W DIFF WBC 10.6 K/uL 4.0-10 .5 high Not Available [facility] ([facility]) [address] , [place], [address], 08/26/2022 10:35:18 08/27/19 23 08/26/2022 CBC AUTO W DIFF RBC 3.8 M/mm3 4.2-6. 4 low Not Available [facility] ([facility]) [address], [place], [address], 08/26/2022 10:35:18 08/27/19 23 08/26/2022 CBC AUTO W DIFF HGB 11.5 gm/dL 12.5-1 6.0 low Not Available [facility] ([facility]) [address] , [place], [address], 08/26/2022 10:35:18 08/27/19 23 08/26/2022 CBC AUTO W DIFF HCT 36.0 % 37.0-4 7.0 low Not Available [facility] ([facility]) [address] , [place], [address], 08/26/2022 10:35:18 08/27/19 23 08/26/2022 CBC AUTO W DIFF MCV 96.0 fL 78-100 Not Available [facility] ([facility]) [address] , [place], [address], 08/26/2022 10:35:18 08/27/19 23 08/26/2022 CBC AUTO W DIFF MCH 30.7 pg 27-31 Not Available [facility] ([facility]) [address] , [place], [address], 08/26/2022 10:35:18 08/27/19 23 08/26/2022 CBC AUTO W DIFF MCHC 31.9 g/dL 32-36 low Not Available [facility] ([facility]) [address] , [place], [address], 08/26/2022 10:35:18 08/27/19 23 08/26/2022 CBC AUTO W DIFF RDW 12.2 % 11.5-1 4.0 Not Available [facility] ([facility]) [address] , [place], [address], 08/26/2022 10:35:18 08/27/19 23 08/26/2022 CBC AUTO W DIFF platelet count 385 K/uL 150-45 0 Not Available [facility] ([facility]) [address] , [place], [address], 08/26/2022 10:35:18 08/27/19 23 08/26/2022 CBC AUTO W DIFF neutrophil% 57.5 % 43-65 Not Available [facility] ([facility]) [address], [place], [address], 08/26/2022 10:35:18 08/27/19 23 08/26/2022 CBC AUTO W DIFF lymphocyte% 29.7 % 20.5-4 5.5 Not Available [facility] ([facility]) [address], [place], [address], 08/26/2022 10:35:18 08/27/19 23 08/26/2022 CBC AUTO W DIFF monocyte% 9.0 % 5.5-11 .7 Not Available [facility] ([facility]) [address] [facility], [place], [address], 08/26/2022 10:35:18 08/27/19 23 08/26/2022 CBC AUTO W DIFF eosinophil% 3.4 % 0.9-2. 9 high Not Available [facility] ([facility]) [address] [facility], [place], [address], 08/26/2022 10:35:18 08/27/19 23 08/26/2022 CBC AUTO W DIFF basophil% 0.4 % 0.2-1. 0 Not Available [facility] ([facility]) [address] [place], [address], 08/26/2022 10:35:18 08/27/19 23 08/26/2022 CBC AUTO W DIFF neutrophil# 6.1 K/uL 2.2-4. 8 high Not Available [facility] ([facility]) [address] [place], [address], 08/26/2022 10:35:18 08/27/19 23 08/26/2022 CBC AUTO W DIFF lymphocyte# 3.2 cell/ mcL 1.3-2. 9 high Not Available [facility] ([facility]) [address] , [place], [address], 08/26/2022 10:35:18 08/27/19 23 08/26/2022 CBC AUTO W DIFF monocyte# 1.0 cell/ mcL 0.3-0. 8 high Not Available [facility] ([facility]) [address], [place], [address], 08/26/2022 10:35:18 08/27/19 23 08/26/2022 CBC AUTO W DIFF eosinophil# 0.4 cell/ mcL 0-0.2 high Not Available [facility] ([facility]) [address] , [place], [address], 08/26/2022 10:35:18 08/27/19 23 08/26/2022 CBC AUTO W DIFF basophil# 0.0 cell/ mcL 0.0-1. 0 Not Available [facility] ([facility]) [address] , [place], [address], 08/26/2022 10:35:18 08/27/19 23 08/26/2022 CBC AUTO W DIFF manual differential NO Not Available [facility] ([facility]) [address] , [place], [address], 08/26/2022 10:35:18 08/27/19 23 08/26/2022 COMP METAB OLIC PANEL sodium 141 mmol/ L 136-14 5 Not Available [facility] ([facility]) [address] , [place], [address], 08/26/2022 11:09:51 08/27/19 23 08/26/2022 COMP METAB OLIC PANEL potassium 3.9 mmol/ L 3.6-5. 0 Not Available [facility] ([facility]) [address], [place], [address], 08/26/2022 11:09:51 08/27/19 23 08/26/2022 COMP METAB OLIC PANEL chloride 103 mmol/ L 98-107 Not Available [facility] ([facility]) [address] , [place], [address], 08/26/2022 11:09:51 08/27/19 23 08/26/2022 COMP METAB OLIC PANEL carbon dioxide 30.7 mmol/ L 21.0-3 2.0 Not Available [facility] ([facility]) [address] , [place], [address], 08/26/2022 11:09:51 08/27/19 23 08/26/2022 COMP METAB OLIC PANEL anion gap 11.2 Not Available [facility] ([facility]) [address] , [place], [address], 08/26/2022 11:09:51 08/27/19 23 08/26/2022 COMP METAB OLIC PANEL glucose 80 mg/dL 70-120 Not Available [facility] ([facility]) [address] , [place], [address], 08/26/2022 11:09:51 08/27/19 23 08/26/2022 COMP METAB OLIC PANEL BUN 6 mg/dL 7-18 low Not Available [facility] ([facility]) [address] , [place], [address], 08/26/2022 11:09:51 08/27/19 23 08/26/2022 COMP METAB OLIC PANEL creatinine 0.9 mg/dL 0.6-1. 3 Not Available [facility] ([facility]) [address] , [place], [address], 08/26/2022 11:09:51 08/27/19 23 08/26/2022 COMP METAB OLIC PANEL glomerular filtration rate >60 mlper min 60- Not Available [facility] ([facility]) [address] , [place], [address], 08/26/2022 11:09:51 08/27/19 23 08/26/2022 COMP METAB OLIC PANEL total protein 8.1 g/dL 6.4-8. 2 Not Available [facility] ([facility]) [address], [place], [address], 08/26/2022 11:09:51 08/27/19 23 08/26/2022 COMP METAB OLIC PANEL albumin 3.2 g/dL 3.4-5. 0 low Not Available [facility] ([facility]) [address] , [place], [address], 08/26/2022 11:09:51 08/27/19 23 08/26/2022 COMP METAB OLIC PANEL globulin 4.9 Not Available [facility] ([facility]) [address] , [place], [address], 08/26/2022 11:09:51 08/27/19 23 08/26/2022 COMP METAB OLIC PANEL alb/glob ratio 0.7 0.7-2 Not Available [facility] ([facility]) [address] , [place], [address], 08/26/2022 11:09:51 08/27/19 23 08/26/2022 COMP METAB OLIC PANEL calcium 8.6 mg/dL 8.5-10 .5 Not Available [facility] ([facility]) [address] , [place], [address], 08/26/2022 11:09:51 08/27/19 23 08/26/2022 COMP METAB OLIC PANEL bilirubin total 0.20 mg/dL 0.10-1 .00 Not Available [facility] ([facility]) [address], [place], [address], 08/26/2022 11:09:51 08/27/19 23 08/26/2022 COMP METAB OLIC PANEL AST (SGOT) 16 U/L 0-37 Not Available [facility] ([facility]) [address], [place], [address], 08/26/2022 11:09:51 08/27/19 23 08/26/2022 COMP METAB OLIC PANEL ALT (SGPT) 16 U/L 0-65 Not Available [facility] ([facility]) [address], [place], [address], 08/26/2022 11:09:51 08/27/19 23 08/26/2022 COMP METAB OLIC PANEL alk phosphatase 72 U/L 46-116 Not Available [facility] ([facility]) [address], [place], [address], 08/26/2022 11:09:51 12/15/19 24 12/16/2023 CBC WITH DIFFE RENTI AL/PL ATELE T WBC 9.9 x10e3 /uL 3.4-10 .8 normal Not Available [facility] ([facility]) [address] [place], [address], 12/24/2023 07:17:24 12/15/19 24 12/16/2023 CBC WITH DIFFE RENTI AL/PL ATELE T RBC 3.76 x10e6 /uL 3.77-5 .28 below low normal Not Available [facility] ([facility]) [address] [place], [address], 12/24/2023 07:17:24 12/15/19 24 12/16/2023 CBC WITH DIFFE RENTI AL/PL ATELE T hemoglobin 11.9 g/dL 11.1-1 5.9 normal Not Available [facility] ([facility]) [address] [place], [address], 12/24/2023 07:17:24 12/15/19 24 12/16/2023 CBC WITH DIFFE RENTI AL/PL ATELE T hematocrit 36.5 % 34.0-4 6.6 normal Not Available [facility] ([facility]) [address] [facility], [place], [address], 12/24/2023 07:17:24 12/15/19 24 12/16/2023 CBC WITH DIFFE RENTI AL/PL ATELE T MCV 97 fL 79-97 normal Not Available [facility] ([facility]) [address] [facility], [place], [address], 12/24/2023 07:17:24 12/15/19 24 12/16/2023 CBC WITH DIFFE RENTI AL/PL ATELE T MCH 31.6 pg 26.6-3 3.0 normal Not Available [facility] ([facility]) [address] [facility], [place], [address], 12/24/2023 07:17:24 12/15/19 24 12/16/2023 CBC WITH DIFFE RENTI AL/PL ATELE T MCHC 32.6 g/dL 31.5-3 5.7 normal Not Available [facility] ([facility]) [address] [facility], [place], [address], 12/24/2023 07:17:24 12/15/19 24 12/16/2023 CBC WITH DIFFE RENTI AL/PL ATELE T RDW 13.3 % 11.7-1 5.4 Not Available [facility] ([facility]) [address] [facility], [place], [address], 12/24/2023 07:17:24 12/15/19 24 12/16/2023 CBC WITH DIFFE RENTI AL/PL ATELE T platelets 421 x10e3 /uL 150-45 0 normal Not Available [facility] ([facility]) [address] [place], [address], 12/24/2023 07:17:24 12/15/19 24 12/16/2023 CBC WITH DIFFE RENTI AL/PL ATELE T neutrophils 63 % not estab. normal Not Available [facility] ([facility]) [address] [place], [address], 12/24/2023 07:17:24 12/15/19 24 12/16/2023 CBC WITH DIFFE RENTI AL/PL ATELE T lymphs 26 % not estab. normal Not Available [facility] ([facility]) [address] [facility], [place], [address], 12/24/2023 07:17:24 12/15/19 24 12/16/2023 CBC WITH DIFFE RENTI AL/PL ATELE T monocytes 7 % not estab. normal Not Available [facility] ([facility]) [address] [facility], [place], [address], 12/24/2023 07:17:24 12/15/19 24 12/16/2023 CBC WITH DIFFE RENTI AL/PL ATELE T eos 3 % not estab. normal Not Available [facility] ([facility]) [address] [facility], [place], [address], 12/24/2023 07:17:24 12/15/19 24 12/16/2023 CBC WITH DIFFE RENTI AL/PL ATELE T basos 1 % not estab. normal Not Available [facility] ([facility]) [address] [facility], [place], [address], 12/24/2023 07:17:24 12/15/19 24 12/16/2023 CBC WITH DIFFE RENTI AL/PL ATELE T immature cells PLANNING ADVISOR Not Available [facility] ([facility]) [address] [facility], [place], [address], 12/24/2023 07:17:24 12/15/19 24 12/16/2023 CBC WITH DIFFE RENTI AL/PL ATELE T neutrophils (absolute) 6.2 x10e3 /uL 1.4-7. 0 normal Not Available [facility] ([facility]) [address] [place], [address], 12/24/2023 07:17:24 12/15/19 24 12/16/2023 CBC WITH DIFFE RENTI AL/PL ATELE T lymphs (absolute) 2.6 x10e3 /uL 0.7-3. 1 normal Not Available [facility] ([facility]) [address] [facility], [place], [address], 12/24/2023 07:17:24 12/15/19 24 12/16/2023 CBC WITH DIFFE RENTI AL/PL ATELE T monocytes(ab solute) 0.7 x10e3 /uL 0.1-0. 9 normal Not Available [facility] ([facility]) [address] [place], [address], 12/24/2023 07:17:24 12/15/19 24 12/16/2023 CBC WITH DIFFE RENTI AL/PL ATELE T eos (absolute) 0.3 x10e3 /uL 0.0-0. 4 normal Not Available [facility] ([facility]) [address] [facility], [place], [address], 12/24/2023 07:17:24 12/15/19 24 12/16/2023 CBC WITH DIFFE RENTI AL/PL ATELE T baso (absolute) 0.1 x10e3 /uL 0.0-0. 2 normal Not Available [facility] ([facility]) [address] [place], [address], 12/24/2023 07:17:24 12/15/19 24 12/16/2023 CBC WITH DIFFE RENTI AL/PL ATELE T immature granulocytes 0 % not estab. Not Available [facility] ([facility]) [address] [place], [address], 12/24/2023 07:17:24 12/15/19 24 12/16/2023 CBC WITH DIFFE RENTI AL/PL ATELE T immature grans (abs) 0.0 x10e3 /uL 0.0-0. 1 Not Available [facility] ([facility]) [address] [facility] [place], [address], 12/24/2023 07:17:24 12/15/19 24 12/16/2023 CBC WITH DIFFE RENTI AL/PL ATELE T NRBC PLANNING ADVISOR Not Available [facility] ([facility]) [address], [place], [address], 12/24/2023 07:17:24 12/15/19 24 12/16/2023 CBC WITH DIFFE RENTI AL/PL ATELE T hematology comments: PLANNING ADVISOR Not Available [facility] ([facility]) [address], [place], [address], 12/24/2023 07:17:24 12/15/19 24 12/16/2023 COMP. METAB OLIC PANEL (14) glucose 91 mg/dL 70-99 normal Not Available [facility] ([facility]) [address], [place], [address], 12/24/2023 07:17:24 12/15/19 24 12/16/2023 COMP. METAB OLIC PANEL (14) BUN 14 mg/dL 6-24 normal Not Available [facility] ([facility]) [address] [place], [address], 12/24/2023 07:17:24 12/15/19 24 12/16/2023 COMP. METAB OLIC PANEL (14) creatinine 0.79 mg/dL 0.57-1 .00 normal Not Available [facility] ([facility]) [address], [place], [address], 12/24/2023 07:17:24 12/15/19 24 12/16/2023 COMP. METAB OLIC PANEL (14) eGFR 96 mL/mi n/1.7 3 >59 normal Not Available [facility] ([facility]) [address] [place], [address], 12/24/2023 07:17:24 12/15/19 24 12/16/2023 COMP. METAB OLIC PANEL (14) BUN/creatini ne ratio 18 9-23 normal Not Available [facility] ([facility]) [address] [place], [address], 12/24/2023 07:17:24 12/15/19 24 12/16/2023 COMP. METAB OLIC PANEL (14) sodium 137 mmol/ L 134-14 4 normal Not Available [facility] ([facility]) [address] [place], [address], 12/24/2023 07:17:24 12/15/19 24 12/16/2023 COMP. METAB OLIC PANEL (14) potassium 4.7 mmol/ L 3.5-5. 2 normal Not Available [facility] ([facility]) [address] [place], [address], 12/24/2023 07:17:24 12/15/19 24 12/16/2023 COMP. METAB OLIC PANEL (14) chloride 103 mmol/ L 96-106 normal Not Available [facility] ([facility] [facility] [address] [place], [address], 12/24/2023 07:17:24 12/15/19 24 12/16/2023 COMP. METAB OLIC PANEL (14) carbon dioxide, total 22 mmol/ L 20-29 normal Not Available [facility] ([facility]) [address] [place], [address], 12/24/2023 07:17:24 12/15/19 24 12/16/2023 COMP. METAB OLIC PANEL (14) calcium 9.2 mg/dL 8.7-10 .2 normal Not Available [facility] ([facility]) [address] [place], [address], 12/24/2023 07:17:24 12/15/19 24 12/16/2023 COMP. METAB OLIC PANEL (14) protein, total 7.4 g/dL 6.0-8. 5 normal Not Available [facility] ([facility]) [address] [facility], [place], [address], 12/24/2023 07:17:24 12/15/19 24 12/16/2023 COMP. METAB OLIC PANEL (14) albumin 4.3 g/dL 3.9-4. 9 normal Not Available [facility] ([facility]) [address] [facility], [place], [address], 12/24/2023 07:17:24 12/15/19 24 12/16/2023 COMP. METAB OLIC PANEL (14) globulin, total 3.1 g/dL 1.5-4. 5 Not Available [facility] ([facility]) [address], [place], [address], 12/24/2023 07:17:24 12/15/19 24 12/16/2023 COMP. METAB OLIC PANEL (14) bilirubin, total <0.2 mg/dL 0.0-1. 2 Not Available [facility] ([facility]) [address] [place] [place], [address], 12/24/2023 07:17:24 12/15/19 24 12/16/2023 COMP. METAB OLIC PANEL (14) alkaline phosphatase 83 IU/L 44-121 normal Not Available [facility] ([facility]) [address] [facility], [place], [address], 12/24/2023 07:17:24 12/15/19 24 12/16/2023 COMP. METAB OLIC PANEL (14) AST (SGOT) 17 IU/L 0-40 normal Not Available [facility] ([facility]) [address] [facility], [place], [address], 12/24/2023 07:17:24 12/15/19 24 12/16/2023 COMP. METAB OLIC PANEL (14) ALT (SGPT) 15 IU/L 0-32 normal Not Available [facility] ([facility]) [address], [place], [address], 12/24/2023 07:17:24 12/15/1912/22/2023 SERGE MUMAB DRUG + ANTIB SHABNAM adalimumab drug level 7.0 ug/mL Quant itati on Limit : <0.6 ug/mL Resul ts of 0.6 or highe r indic ate detec tion of serge mumab . Comme nts: - The optim al drug victorina ntrat ion depen ds upon patie nt- speci fic facto rs inclu ding the disea se and radhames ed thera peuti c endpo int. - Maint enanc e troug h victorina ntrat ions >=7.5 may corre spond to highe r remis taina rates .(1) - Mucos al heali ng may be more likel y in patie nts with maint enanc e troug h level s >8.14 .(2) - In rheum atoid arthr itis, troug h level s of 5-8 are assoc iated with clini jesus (NATACHA R) respo nse.( 3) - This assay measu res the antib shabnam-u nboun d (free ) fract ion of serge mumab when serum anti- serge mumab antib odies are prese nt. Not Available [facility] [address] [place] [address], [place], [address], 12/24/2023 07:17:25 12/15/19 24 12/23/2023 SERGE MUMAB DRUG + ANTIB SHABNAM anti-adalimu mab antibody <25 NG/mL Inter preta tion: The above resul t is an UNDET ECTED Antib shabnam titer Quant itati on Limit : <25 ng/mL . Resul ts of 25 or highe r indic ate detec tion of anti- serge mumab antib odies . 25 - 100 ng/mL : LOW titer 101 - 300 ng/mL : INTER MEDIA TE titer 301 or great er ng/mL : HIGH titer Comme nts: - Anti- drug antib shabnam level s shoul d be inter prete d in the chandler xt of the conco mitan t free drug troug h victorina ntrat ion. - Low anti- drug antib odies may be trans ient while high titer s are likel y to be more conse quent ial.( 4-6) - Some immun [facility] is rever sible . Elimi natio n of inter media te titer (and even some high titer ) anti- serge mumab antib odies has been achie elvia with dose escal ation and/o r metho trexa te or 6-MP. (7) - This anti- serge mumab antib shabnam assay is drug nori ant, and all posit kelvin resul ts are verif ied for anti- drug speci ficit y by a confi rmato ry test. Refer ences : 1. Zulma horner N, et al. AGA Revie w on TDM in IBD. Gastr oente rol 2017; 153:8 35-85 7. 2. Vasquez Shepherd, et al. J Crohn s Col 2016; 10(5) :510- 515. 3. Beverlyw MF, et al. Daisy Rheum Dis 2015; 74:51 3-518 . 4. Terra mcdaniel GM, et al. STARR 2011; 305(1 4):14 60-14 68. 5. Declan silva C, et al. J Clin Gastr oente rol 2016; 50:48 2-489 . 6. Jigar Blake, et al. Clin Gastr oente rol Hepat ol 2015; 13(3) :522- 530. 7. Js Manuel, et al. Gastr oente rol 2019; 156(6 ):S-6 17. These tests were devel oped and their perfo rmanc e gonzalo cteri stics deter mined by [facility]. They have not been clear ed or appro elvia by the Food and Drug Admin istra tion. Howev er, these elect agustina milum inesc ence immun oassa y (ECLI A) measu remen ts of serge mumab and anti- serge mumab antib shabnam (cons titut ing DoseA SSURE ADL) have been devel oped and valid ated in accor dance with CLIA (Clin ical Labor atory Impro vemen t Amend ments ) and the FDA Shala nce docum ent, Assay Devel opmen t and Valid ation for Immun ogeni city Testi ng of Thera peuti c Prote in Produ cts (2019 ). Not Available [facility] [address] [place], [address], 12/24/2023 07:17:25 12/15/19 24 12/23/2023 SERGE MUMAB DRUG + ANTIB SHABNAM pdf . Not Available [facility] [address] [facility], [place], [address], 12/24/2023 07:17:25 04/20/2004/21/2024 FE+TI BC+FE R iron bind.cap.(TI BC) 350 ug/dL 250-45 0 normal Not Available [facility] ([facility]) [address] [place], [address], 05/01/2024 07:13:18 04/20/20 24 04/21/2024 FE+TI BC+FE R UIBC 302 ug/dL 131-42 5 normal Not Available [facility] ([facility]) [address] [place], [address], 05/01/2024 07:13:18 04/20/20 24 04/21/2024 FE+TI BC+FE R iron 48 ug/dL 27-159 normal Not Available [facility] ([facility]) [address] [place], [address], 05/01/2024 07:13:18 04/20/20 24 04/21/2024 FE+TI BC+FE R iron saturation 14 % 15-55 below low normal Not Available [facility] ([facility]) [address] [place], [address], 05/01/2024 07:13:18 04/20/20 24 04/21/2024 FE+TI BC+FE R ferritin 36 NG/mL 15-150 normal Not Available [facility] ([facility]) [address] [place], [address], 05/01/2024 07:13:18 04/20/20 24 04/21/2024 CBC WITH DIFFE RENTI AL/PL ATELE T WBC 12.8 x10e3 /uL 3.4-10 .8 above high normal Not Available [facility] ([facility]) [address] [facility], [place], [address], 05/01/2024 07:13:19 04/20/20 24 04/21/2024 CBC WITH DIFFE RENTI AL/PL ATELE T RBC 3.75 x10e6 /uL 3.77-5 .28 below low normal Not Available [facility] ([facility]) [address] [facility], [place], [address], 05/01/2024 07:13:19 04/20/20 24 04/21/2024 CBC WITH DIFFE RENTI AL/PL ATELE T hemoglobin 11.4 g/dL 11.1-1 5.9 normal Not Available [facility] ([facility]) [address] [place], [address], 05/01/2024 07:13:19 04/20/20 24 04/21/2024 CBC WITH DIFFE RENTI AL/PL ATELE T hematocrit 36.0 % 34.0-4 6.6 normal Not Available [facility] ([facility]) [address] [place], [address], 05/01/2024 07:13:19 04/20/20 24 04/21/2024 CBC WITH DIFFE RENTI AL/PL ATELE T MCV 96 fL 79-97 normal Not Available [facility] ([facility]) [address] [place], [address], 05/01/2024 07:13:19 04/20/20 24 04/21/2024 CBC WITH DIFFE RENTI AL/PL ATELE T MCH 30.4 pg 26.6-3 3.0 normal Not Available [facility] ([facility]) [address] [facility], [place], [address], 05/01/2024 07:13:19 04/20/20 24 04/21/2024 CBC WITH DIFFE RENTI AL/PL ATELE T MCHC 31.7 g/dL 31.5-3 5.7 normal Not Available [facility] ([facility]) [address] [facility], [place], [address], 05/01/2024 07:13:19 04/20/20 24 04/21/2024 CBC WITH DIFFE RENTI AL/PL ATELE T RDW 12.6 % 11.7-1 5.4 Not Available [facility] ([facility]) [address] [facility], [place], [address], 05/01/2024 07:13:19 04/20/20 24 04/21/2024 CBC WITH DIFFE RENTI AL/PL ATELE T platelets 524 x10e3 /uL 150-45 0 above high normal Not Available [facility] ([facility]) [address] [facility], [place], [address], 05/01/2024 07:13:19 04/20/20 24 04/21/2024 CBC WITH DIFFE RENTI AL/PL ATELE T neutrophils 69 % not estab. normal Not Available [facility] ([facility]) [address] [place], [address], 05/01/2024 07:13:19 04/20/20 24 04/21/2024 CBC WITH DIFFE RENTI AL/PL ATELE T lymphs 23 % not estab. normal Not Available [facility] ([facility]) [address] [place], [address], 05/01/2024 07:13:19 04/20/20 24 04/21/2024 CBC WITH DIFFE RENTI AL/PL ATELE T monocytes 5 % not estab. normal Not Available [facility] ([facility]) [address] [place], [address], 05/01/2024 07:13:19 04/20/20 24 04/21/2024 CBC WITH DIFFE RENTI AL/PL ATELE T eos 2 % not estab. normal Not Available [facility] ([facility]) [address] [place], [address], 05/01/2024 07:13:19 04/20/20 24 04/21/2024 CBC WITH DIFFE RENTI AL/PL ATELE T basos 1 % not estab. normal Not Available [facility] ([facility]) [address] [place], [address], 05/01/2024 07:13:19 04/20/20 24 04/21/2024 CBC WITH DIFFE RENTI AL/PL ATELE T immature cells PLANNING ADVISOR Not Available [facility] ([facility]) [address] [place], [address], 05/01/2024 07:13:19 04/20/20 24 04/21/2024 CBC WITH DIFFE RENTI AL/PL ATELE T neutrophils (absolute) 8.9 x10e3 /uL 1.4-7. 0 above high normal Not Available [facility] ([facility]) [address] [place], [address], 05/01/2024 07:13:19 04/20/20 24 04/21/2024 CBC WITH DIFFE RENTI AL/PL ATELE T lymphs (absolute) 2.9 x10e3 /uL 0.7-3. 1 normal Not Available [facility] ([facility]) [address] [place], [address], 05/01/2024 07:13:19 04/20/20 24 04/21/2024 CBC WITH DIFFE RENTI AL/PL ATELE T monocytes(ab solute) 0.6 x10e3 /uL 0.1-0. 9 normal Not Available [facility] ([facility]) [address] [facility] [place], [address], 05/01/2024 07:13:19 04/20/20 24 04/21/2024 CBC WITH DIFFE RENTI AL/PL ATELE T eos (absolute) 0.3 x10e3 /uL 0.0-0. 4 normal Not Available [facility] ([facility]) [address] [facility], [place], [address], 05/01/2024 07:13:19 04/20/20 24 04/21/2024 CBC WITH DIFFE RENTI AL/PL ATELE T baso (absolute) 0.1 x10e3 /uL 0.0-0. 2 normal Not Available [facility] ([facility]) [address] [facility], [place], [address], 05/01/2024 07:13:19 04/20/20 24 04/21/2024 CBC WITH DIFFE RENTI AL/PL ATELE T immature granulocytes 0 % not estab. Not Available [facility] ([facility]) [address] [facility], [place], [address], 05/01/2024 07:13:19 04/20/20 24 04/21/2024 CBC WITH DIFFE RENTI AL/PL ATELE T immature grans (abs) 0.0 x10e3 /uL 0.0-0. 1 Not Available [facility] ([facility]) [address] [place], [address], 05/01/2024 07:13:19 04/20/20 24 04/21/2024 CBC WITH DIFFE RENTI AL/PL ATELE T NRBC PLANNING ADVISOR Not Available [facility] ([facility]) [address] [place], [address], 05/01/2024 07:13:19 04/20/20 24 04/21/2024 CBC WITH DIFFE RENTI AL/PL ATELE T hematology comments: PLANNING ADVISOR Not Available [facility] ([facility]) [address] [place], [address], 05/01/2024 07:13:19 04/20/20 24 04/21/2024 GI PROFI LE, STOOL , PCR campylobacte r COMMEN T Test not perfo rmed. No speci men recei elvia. Not Available [facility] ([facility]) [address] [facility], [place], [address], 05/01/2024 07:13:20 04/20/20 24 04/21/2024 GI PROFI LE, STOOL , PCR C difficile toxin A/B TNP Test not perfo rmed Not Available [facility] ([facility]) [address] [place], [address], 05/01/2024 07:13:20 04/20/20 24 04/21/2024 GI PROFI LE, STOOL , PCR plesiomonas shigelloides TNP Test not perfo rmed Not Available [facility] ([facility]) [address] [place], [address], 05/01/2024 07:13:20 04/20/20 24 04/21/2024 GI PROFI LE, STOOL , PCR salmonella TNP Test not perfo rmed Not Available [facility] ([facility]) [address] [place], [address], 05/01/2024 07:13:20 04/20/20 24 04/21/2024 GI PROFI LE, STOOL , PCR vibrio TNP Test not perfo rmed Not Available [facility] ([facility]) [address] [place], [address], 05/01/2024 07:13:20 04/20/20 24 04/21/2024 GI PROFI LE, STOOL , PCR vibrio cholerae TNP Test not perfo rmed Not Available [facility] ([facility]) [address] [place], [address], 05/01/2024 07:13:20 04/20/20 24 04/21/2024 GI PROFI LE, STOOL , PCR yersinia enterocoliti ca TNP Test not perfo rmed Not Available [facility] ([facility]) [address] [place], [address], 05/01/2024 07:13:20 04/20/20 24 04/21/2024 GI PROFI LE, STOOL , PCR enteroaggreg ative E coli TNP Test not perfo rmed Not Available [facility] ([facility]) [address] [place], [address], 05/01/2024 07:13:20 04/20/2004/21/2024 GI PROFI LE, STOOL , PCR enteropathog enic E coli TNP Test not perfo rmed Not Available [facility] ([facility]) [address] [place], [address], 05/01/2024 07:13:20 04/20/20 24 04/21/2024 GI PROFI LE, STOOL , PCR enterotoxige tricia E coli TNP Test not perfo rmed Not Available [facility] ([facility]) [address] [place], [address], 05/01/2024 07:13:20 04/20/20 24 04/21/2024 GI PROFI LE, STOOL , PCR shiga-toxin- producing E coli TNP Test not perfo rmed Not Available [facility] ([facility]) [address] [place], [address], 05/01/2024 07:13:20 04/20/20 24 04/21/2024 GI PROFI LE, STOOL , PCR E coli O157 TNP Test not perfo rmed Not Available [facility] ([facility]) [address] [place], [address], 05/01/2024 07:13:20 04/20/20 24 04/21/2024 GI PROFI LE, STOOL , PCR shigella/ent eroinvasive E coli TNP Test not perfo rmed Not Available [facility] ([facility]) [address] [place], [address], 05/01/2024 07:13:20 04/20/20 24 04/21/2024 GI PROFI LE, STOOL , PCR cryptosporid ium TNP Test not perfo rmed Not Available [facility] ([facility]) [address] [place], [address], 05/01/2024 07:13:20 04/20/20 24 04/21/2024 GI PROFI LE, STOOL , PCR cyclospora cayetanensis TNP Test not perfo rmed Not Available [facility] ([facility]) [address] [place], [address], 05/01/2024 07:13:20 04/20/20 24 04/21/2024 GI PROFI LE, STOOL , PCR entamoeba histolytica TNP Test not perfo rmed Not Available [facility] ([facility]) [address] [place], [address], 05/01/2024 07:13:20 04/20/20 24 04/21/2024 GI PROFI LE, STOOL , PCR giardia lamblia TNP Test not perfo rmed Not Available [facility] ([facility]) [address] [place], [address], 05/01/2024 07:13:20 04/20/20 24 04/21/2024 GI PROFI LE, STOOL , PCR adenovirus F 40/41 TNP Test not perfo rmed Not Available [facility] ([facility]) [address] [place], [address], 05/01/2024 07:13:20 04/20/20 24 04/21/2024 GI PROFI LE, STOOL , PCR astrovirus TNP Test not perfo rmed Not Available [facility] ([facility]) [address], [place], [address], 05/01/2024 07:13:20 04/20/20 24 04/21/2024 GI PROFI LE, STOOL , PCR norovirus GI/gii TNP Test not perfo rmed Not Available [facility] ([facility]) [address], [place], [address], 05/01/2024 07:13:20 04/20/20 24 04/21/2024 GI PROFI LE, STOOL , PCR rotavirus A TNP Test not perfo rmed Not Available [facility] ([facility]) [address] [place], [address], 05/01/2024 07:13:20 04/20/20 24 04/21/2024 GI PROFI LE, STOOL , PCR sapovirus TNP Test not perfo rmed Not Available [facility] ([facility]) [address] [place], [address], 05/01/2024 07:13:20 04/20/20 24 04/21/2024 COMP. METAB OLIC PANEL (14) glucose 89 mg/dL 70-99 normal Not Available [facility] ([facility]) [address] [place], [address], 05/01/2024 07:13:22 04/20/20 24 04/21/2024 COMP. METAB OLIC PANEL (14) BUN 8 mg/dL 6-24 normal Not Available [facility] ([facility]) [address] [place], [address], 05/01/2024 07:13:22 04/20/20 24 04/21/2024 COMP. METAB OLIC PANEL (14) creatinine 0.75 mg/dL 0.57-1 .00 normal Not Available [facility] ([facility]) [address] [place], [address], 05/01/2024 07:13:22 04/20/20 24 04/21/2024 COMP. METAB OLIC PANEL (14) eGFR 103 mL/mi n/1.7 3 >59 normal Not Available [facility] ([facility]) [address] [facility], [place], [address], 05/01/2024 07:13:22 04/20/20 24 04/21/2024 COMP. METAB OLIC PANEL (14) BUN/creatini ne ratio 11 9-23 normal Not Available [facility] ([facility]) [address] [facility], [place], [address], 05/01/2024 07:13:22 04/20/20 24 04/21/2024 COMP. METAB OLIC PANEL (14) sodium 140 mmol/ L 134-14 4 normal Not Available [facility] ([facility]) [address] [facility], [place], [address], 05/01/2024 07:13:22 04/20/20 24 04/21/2024 COMP. METAB OLIC PANEL (14) potassium 4.0 mmol/ L 3.5-5. 2 normal Not Available [facility] ([facility]) [address] [place], [address], 05/01/2024 07:13:22 04/20/20 24 04/21/2024 COMP. METAB OLIC PANEL (14) chloride 102 mmol/ L 96-106 normal Not Available [facility] ([facility]) [address] [place], [address], 05/01/2024 07:13:22 04/20/20 24 04/21/2024 COMP. METAB OLIC PANEL (14) carbon dioxide, total 26 mmol/ L 20-29 normal Not Available [facility] ([facility]) [address] [place], [address], 05/01/2024 07:13:22 04/20/20 24 04/21/2024 COMP. METAB OLIC PANEL (14) calcium 9.1 mg/dL 8.7-10 .2 normal Not Available [facility] ([facility]) [address] [place], [address], 05/01/2024 07:13:22 04/20/20 24 04/21/2024 COMP. METAB OLIC PANEL (14) protein, total 7.2 g/dL 6.0-8. 5 normal Not Available [facility] ([facility]) [address] [place], [address], 05/01/2024 07:13:22 04/20/20 24 04/21/2024 COMP. METAB OLIC PANEL (14) albumin 3.9 g/dL 3.9-4. 9 normal Not Available [facility] ([facility]) [address] [place], [address], 05/01/2024 07:13:22 04/20/20 24 04/21/2024 COMP. METAB OLIC PANEL (14) globulin, total 3.3 g/dL 1.5-4. 5 Not Available [facility] ([facility]) [address] [place], [address], 05/01/2024 07:13:22 04/20/20 24 04/21/2024 COMP. METAB OLIC PANEL (14) bilirubin, total 0.2 mg/dL 0.0-1. 2 normal Not Available [facility] ([facility]) [address] [place], [address], 05/01/2024 07:13:22 04/20/20 24 04/21/2024 COMP. METAB OLIC PANEL (14) alkaline phosphatase 99 IU/L 44-121 normal Not Available [facility] ([facility]) [address] [place], [address], 05/01/2024 07:13:22 04/20/20 24 04/21/2024 COMP. METAB OLIC PANEL (14) AST (SGOT) 14 IU/L 0-40 normal Not Available [facility] ([facility]) [address] [facility], [place], [address], 05/01/2024 07:13:22 04/20/20 24 04/21/2024 COMP. METAB OLIC PANEL (14) ALT (SGPT) 17 IU/L 0-32 normal Not Available [facility] ([facility]) [address] [facility], [place], [address], 05/01/2024 07:13:22 04/20/20 24 04/25/2024 SERGE MUMAB DRUG + ANTIB SHABNAM adalimumab drug level 7.0 ug/mL Quant itati on Limit : <0.6 ug/mL Resul ts of 0.6 or highe r indic ate detec tion of serge mumab . Comme nts: - The optim al drug victorina ntrat ion depen ds upon patie nt- speci fic facto rs inclu ding the disea se and radhames ed thera peuti c endpo int. - Maint enanc e troug h victorina ntrat ions >=7.5 may corre spond to highe r remis taina rates .(1) - Mucos al heali ng may be more likel y in patie nts with maint enanc e troug h level s >8.14 .(2) - In rheum atoid arthr itis, troug h level s of 5-8 are assoc iated with clini jesus (NATACHA R) respo nse.( 3) - This assay measu res the antib shabnam-u nboun d (free ) fract ion of serge mumab when serum anti- serge mumab antib odies are prese nt. Not Available [facility] [address] [facility], [place], [address], 05/01/2024 07:13:23 04/20/20 24 04/30/2024 SERGE MUMAB DRUG + ANTIB SHABNAM anti-adalimu mab antibody <25 NG/mL Inter preta tion: The above resul t is an UNDET ECTED Antib shabnam titer Quant itati on Limit : <25 ng/mL . Resul ts of 25 or highe r indic ate detec tion of anti- serge mumab antib odies . 25 - 100 ng/mL : LOW titer 101 - 300 ng/mL : INTER MEDIA TE titer 301 or great er ng/mL : HIGH titer Comme nts: - Anti- drug antib shabnam level s shoul d be inter prete d in the chandler xt of the conco mitan t free drug troug h victorina ntrat ion. - Low anti- drug antib odies may be trans ient while high titer s are likel y to be more conse quent ial.( 4-6) - Some immun [facility] is rever sible . Elimi natio n of inter media te titer (and even some high titer ) anti- serge mumab antib odies has been achie elvia with dose escal ation and/o r metho trexa te or 6-MP. (7) - This anti- serge mumab antib shabnam assay is drug nori ant, and all posit kelvin resul ts are verif ied for anti- drug speci ficit y by a confi rmato ry test. Refer ences : 1. Zulma Merchant, et al. AGA Revie w on TDM in IBD. Gastr oente rol 2017; 153:8 35-85 7. 2. Vasquez merchant E, et al. J Crohn s Col 2016; 10(5) :510- 515. 3. Mercedes MF, et al. Daisy Rheum Dis 2015; 74:51 3-518 . 4. Terra mcdaniel GM, et al. STARR 2011; 305(1 4):14 60-14 68. 5. Declan De Oliveira, et al. J Clin Gastr oente rol 2016; 50:48 2-489 . 6. Jigar H, et al. Clin Gastr oente rol Hepat ol 2015; 13(3) :522- 530. 7. Js Manuel, et al. Gastr oente rol 2019; 156(6 ):S-6 17. These tests were devel oped and their perfo rmanc e gonzalo cteri stics deter mined by [facility]. They have not been clear ed or appro elvia by the Food and Drug Admin istra tion. Geovany er, these elect agustina milum inesc ence immun oassa y (ECLI A) measu remen ts of serge mumab and anti- serge mumab antib shabnam (cons titut ing DoseA SSURE ADL) have been devel oped and valid ated in accor dance with CLIA (Clin ical Labor atory Impro vemen t Amend ments ) and the FDA Shala nce docum ent, Assay Devel opmen t and Valid ation for Immun ogeni city Testi ng of Thera peuti c Prote in Produ cts (2019 ). Not Available [facility] [address] [facility], [place], [address], 05/01/2024 07:13:23 04/20/20 24 05/01/2024 SERGE MUMAB DRUG + ANTIB SHABNAM pdf . Not Available [facility] [address] [place], [address], 05/01/2024 07:13:23 04/20/20 24 04/21/2024 QUANT IFERO N-TB GOLD PLUS quantiferon incubation INCUBA TION PERFOR MED. Not Available [facility] ([facility]) [address] [facility], [place], [address], 05/01/2024 07:13:24 04/20/20 24 04/21/2024 QUANT IFERO N-TB GOLD PLUS quantiferon criteria COMMEN T Quant iFERO N-TB Gold Plus is a quali tativ e indir ect test for M tuber culos is infec tion (incl uding disea se) and is inten ded for use in conju nctio n with risk asses sment , radio graph y, and other medic al and diagn ostic evalu ation s. The Quant iFERO N-TB Gold Plus resul t is deter mined by subtr actin g the Nil value from eithe r TB antig en (Ag) value . The Mitog en tube serve s as a contr ol for the test. Not Available [facility] ([facility]) [address], [place], [address], 05/01/2024 07:13:24 04/20/20 24 04/22/2024 QUANT IFERO N-TB GOLD PLUS quantiferon TB1 Ag value 0.01 IU/mL Not Available [facility] ([facility]) [address] [place], [address], 05/01/2024 07:13:24 04/20/20 24 04/22/2024 QUANT IFERO N-TB GOLD PLUS quantiferon TB2 Ag value 0.00 IU/mL Not Available [facility] ([facility]) [address] [place], [address], 05/01/2024 07:13:24 04/20/20 24 04/22/2024 QUANT IFERO N-TB GOLD PLUS quantiferon nil value 0.00 IU/mL Not Available [facility] ([facility]) [address] [place], [address], 05/01/2024 07:13:24 04/20/20 24 04/22/2024 QUANT IFERO N-TB GOLD PLUS quantiferon mitogen value >10.00 IU/mL Not Available [facility] ([facility]) [address] [place], [address], 05/01/2024 07:13:24 04/20/20 24 04/22/2024 QUANT IFERO N-TB GOLD PLUS quantiferon- TB gold plus NEGATI VE negati ve No respo nse to M tuber culos is antig ens detec renee. Infec tion with M tuber lawos is is unlik kamari, but high risk indiv idual s shoul d be consi dered for addit ional testi ng (ATS/ IDSA/ CDC Clini jesus Pract ice Guide lines , 2017) . The refer ence range is an Antig en minus Nil resul t of <0.35 IU/mL . Chemi lumin escen ce immun oassa y metho dolog y Not Available [facility] ([facility]) [address] [facility], [place], [address], 05/01/2024 07:13:24 04/20/20 24 04/21/2024 ESR-W ES+CR P sedimentatio n rate-westerg caroline 79 mm/HR 0-32 above high normal Not Available [facility] ([facility]) [address], [place], [address], 05/01/2024 07:13:25 04/20/20 24 04/21/2024 ESR-W ES+CR P C-reactive protein, quant 19 mg/L 0-10 above high normal Not Available [facility] ([facility]) [address], [place], [address], 05/01/2024 07:13:25 04/20/20 24 04/21/2024 VITAM IN D, 25-HY DROXY vitamin D, 25-hydroxy 49.0 NG/mL 30.0-1 00.0 Vitam in D defic iency has been defin ed by the Insti tute of Medic ine and an Endoc rine Socie ty pract ice guide line as a level of serum 25-OH vitam in D less than 20 ng/mL (1,2) . The Endoc rine Socie ty went on to furth er defin e vitam in D insuf ficie ncy as a level betwe en 21 and 29 ng/mL (2). 1. IOM (Inst itute of Medic ine). 2010. Kulwinder ry refer ence intmarcial es for calci um and D. Baldomero schmitt [place]: The Natio nal [facility] Press . 2. Maicol singh MF, Loulou pacheco [place], Marciano off-F errar i HALL, et al. Evalu ation , treat ment, and preve ntion of vitam in D defic iency : an Endoc rine Socie ty clini jesus pract ice guide line. JCEM. 2010; 96(7) :1911 -30. Not Available [facility] ([facility]) [address], [place], [address], 05/01/2024 07:13:26 04/20/20 24 04/21/2024 CALPR OTECT IN, FECAL calprotectin , fecal COMMEN T ug/g Test not perfo rmed. No speci men recei elvia. Victorina ntrat ion Inter preta tion Follo w-Up < 5 - 50 ug/g Jaclyn l None >50 -120 ug/g Borde rline Re-ev aluat e in 4-6 weeks >120 ug/g Abnor mal Repea t as clini kailey indic ated Not Available [facility] ([facility]) [address], [place], [address], 05/01/2024 07:13:27 04/20/20 24 04/21/2024 SPECI MEN STATU S REPOR T specimen status report COMMEN T Test not perfo rmed. No speci men recei elvia. TEST: [id number] GI Profi le, Stool , PCR [id number] Calpr otect in, Fecal Not Available [facility] ([facility]) [address], [place], [address], 05/01/2024 07:13:28 Result Notes None recorded. Problems Name Problem SNOMED Code Status Onset Date Resolution Date Notes Provider Name and Address Organization Details Recorded Time Crohn's disease 90679045 Active 2021 Claudine Mera [facility], [place] - [facility] & [place] 3 08:55:28 Gastroesophag eal reflux disease without esophagitis 018566341 Active 2022 Compa Yuan PA-C [address] , [place], [address] , [place] - [facility] & [place] 3 19:43:00 Chronic idiopathic constipation 76773237 Active [address], [place], [address] , [place] - [facility] & [place] 4 16:16:42 Diarrhea 70598260 Active [address], [place], [address] , [facility] & [place] 4 13:46:59 Abdominal pain 36777577 Active 2023 Compa Yuan PA-C [address], [place], [address] , [facility] & [place] 4 13:47:05 Problem Notes None recorded. Procedures Surgical History Date Name Laterality Status Provider Name and Address Organization Details Recorded Time 2 Colonoscopy completed Claudine Mera [facility] & [place] 08/26/2022 09:02:54 9 Appendectomy completed Claudine RODRIGUEZ [facility] & [place] 08/26/2022 09:02:54 5 ENT Surgery completed Claudine Mera [facility] & [place] 08/26/2022 09:02:54 Imaging Results None recorded. Procedure Notes None recorded. Medical Equipment None Reported. Allergies Allergen ID Allergen Name Allergen Category Reaction Reaction Severity Criticality Documentation Date Start Date Code Code System Note Provider Name and Address Organization Details Recorded Time 151912 penicilli n G Not available anaphylax is moderate Not available 04/20/2024 7980 [facility] [place] 4 15:50:05 [address]3368 tetracycl ine medicatio n anaphylax is wheezing mild mild Not available 08/26/2022 34343 RxNorm [facility] [place] 3 09:02:22 Medications Name Sig Start Date Stop Date Status Note LastModified by Organization Details LastModified Time amoxicillin 500 mg capsule TAKE ONE CAPSULE BY MOUTH TWICE DAILY FOR 7 DAYS -- FINISH ALL MEDICINE -- 08/26 completed Not Available Not Available Not Available fluconazole 100 mg tablet TAKE ONE TABLET BY MOUTH ONCE DAILY FOR 7 DAYS -- FINISH ALL MEDICINE -- active Not Available Not Available No t Available metformin 500 mg tablet TAKE ONE TABLET BY MOUTH TWICE DAILY 07/09 completed Not Available Not Available Not Available terconazole 0.4 % vaginal cream USE 1 APPLICATO RFUL VAGINALLY DIRECTED EVERY DAY AT BEDTIME FOR 7 DAYS 04/20 completed Not Available Not Available Not Available potassium chloride ER 10 mEq capsule,ext ended release TAKE ONE CAPSULE BY MOUTH EVERY DAY active Not Available Not Available No t Available clindamycin HCl 300 mg capsule TAKE ONE CAPSULE BY MOUTH EVERY 8 HOURS FOR 7 DAYS -- FINISH ALL MEDICINE -- 07/09 completed Not Available Not Available Not Available cetirizine 10 mg tablet TAKE ONE TABLET BY MOUTH EVERY DAY active Not Available Not Available No t Available ibuprofen 800 mg tablet TAKE ONE TABLET BY MOUTH EVERY 8 HOURS NEEDED FOR PAIN --TAKE WITH FOOD-- active Not Available Not Available No t Available alprazolam 1 mg tablet TAKE ONE TABLET BY MOUTH 90 minutes prior TO your procedure . wait 45 minutes, if needed take THE second tablet. bring THE third TABLET with you in case it is needed. MAY CAUSE DROWSINES S 08/26 completed Not Available Not Available Not Available nystatin 100,000 unit/gram topical ointment APPLY TOPICALLY TO THE AFFECTED AREA(S) THREE TIMES DAILY 04/20 completed Not Available Not Available Not Available fluconazole 150 mg tablet TAKE ONE TABLET BY MOUTH every 72 hours FOR 2 doses active Not Available Not Available No t Available atenolol 100 mg tablet TAKE ONE TABLET BY MOUTH EVERY DAY 07/09 completed Not Available Not Available Not Available valacyclovi r 1 gram tablet TAKE ONE TABLET BY MOUTH THREE TIMES DAILY FOR 7 DAYS 04/20 completed Not Available Not Available Not Available hydrocodone 5 mg-acetamin ophen 325 mg tablet TAKE 1 OR 2 TABLET(S) BY MOUTH EVERY 6 HOURS NEEDED FOR PAIN active Not Available Not Available No t Available Nystop 100,000 unit/gram topical powder APPLY TOPICALLY TO THE AFFECTED AREA(S) THREE TIMES DAILY FOR FOURTEEN DAYS 04/20 completed Not Available Not Available Not Available ondansetron HCl 4 mg tablet TAKE ONE TABLET BY MOUTH EVERY 8 HOURS 07/09 completed Not Available Not Available Not Available spironolact one 100 mg tablet TAKE ONE TABLET BY MOUTH TWICE DAILY active Not Available Not Available No t Available prednisone 5 mg tablet TAKE THREE TABLETS BY MOUTH ONCE DAILY FOR 5 DAYS, TAKE TWO TABLETS ONCE DAILY FOR 5 DAYS, THEN TAKE ONE TABLET ONCE DAILY FOR 5 DAYS -- FINISH ALL MEDICINE -- --TAKE WITH FOOD-- 04/20 completed Not Available Not Available Not Available terconazole 0.8 % vaginal cream APPLY TOPICALLY TO THE AFFECTED AREA(S) TWICE DAILY DIRECTED 04/20 completed Not Available Not Available Not Available benzoyl peroxide 10 % topical cleanser WASH affected AREAS in THE SHOWER ONCE DAILY. let sit FOR a few minutes BEFORE rinsing. Follow with regular soap. Alternate with hibiclens WASH. 08/26 completed Not Available Not Available Not Available metronidazo le 500 mg tablet TAKE ONE TABLET BY MOUTH TWICE DAILY FOR 7 DAYS --AVOID ANY PRODUCT(S ) CONTAININ G ALCOHOL WHILE TAKING THIS MEDICATIO N-- 04/20 completed Not Available Not Available Not Available acetaminoph en 300 mg-codeine 30 mg tablet TAKE ONE TABLET BY MOUTH EVERY 4 TO 6 HOURS NEEDED FOR PAIN MAY CAUSE DROWSINES S 08/25 completed Not Available Not Available Not Available sulfamethox azole 800 mg-trimetho prim 160 mg tablet TAKE ONE TABLET BY MOUTH TWICE DAILY FOR 8 DAYS active Not Available Not Available No t Available omeprazole 40 mg capsule,del ayed release TAKE ONE CAPSULE BY MOUTH EVERY DAY BEFORE meals FOR acid reflux active Not Available Not Available No t Available oxycodone-a cetaminophe n 5 mg-325 mg tablet TAKE ONE TABLET BY MOUTH EVERY 6 HOURS NEEDED FOR PAIN MAY CAUSE DROWSINES S active Not Available Not Available No t Available ofloxacin 0.3 % ear drops instill 10 drops into affected ear(s) ONCE DAILY FOR 10 DAYS active Not Available Not Available No t Available clindamycin 1 % topical gel APPLY TOPICALLY TO THE AFFECTED AREA(S) TWICE DAILY DIRECTED 04/20 completed Not Available Not Available Not Available linezolid 600 mg tablet TAKE ONE TABLET BY MOUTH TWICE DAILY FOR 7 DAYS 07/09 completed Not Available Not Available Not Available erythromyci n 5 mg/gram (0.5 %) eye ointment AFTER your procedure , apply TO affected eyelid TWICE DAILY FOR 5 DAYS 08/25 completed Not Available Not Available Not Available metformin 1,000 mg tablet TAKE ONE TABLET BY MOUTH TWICE DAILY active Not Available Not Available No t Available nystatin 100,000 unit/gram topical cream APPLY TOPICALLY TO THE AFFECTED AREA(S) THREE TIMES DAILY FOR FOURTEEN DAYS 04/20 completed Not Available Not Available Not Available prednisone 50 mg tablet TAKE 1 TABLET BY MOUTH ONCE DAILY FOR 5 DAYS PLEASE BEGIN 1 DAY AFTER ED VISIT 04/20 completed Not Available Not Available Not Available hydrochloro thiazide 12.5 mg capsule TAKE ONE CAPSULE BY MOUTH EVERY DAY 07/09 completed Not Available Not Available Not Available omeprazole 20 mg capsule,del ayed release TAKE ONE CAPSULE BY MOUTH EVERY DAY (30 minutes prior TO a meal) 04/20 completed Not Available Not Available Not Available montelukast 10 mg tablet TAKE ONE TABLET BY MOUTH EVERY DAY active Not Available Not Available No t Available mupirocin 2 % topical ointment APPLY TOPICALLY TO THE AFFECTED AREA(S) THREE TIMES DAILY FOR 5 DAYS active Not Available Not Available No t Available gabapentin 100 mg capsule TAKE ONE CAPSULE BY MOUTH THREE TIMES DAILY NEEDED FOR 7 DAYS MAY CAUSE DROWSINES S active Not Available Not Available No t Available ergocalcife rol (vitamin D2) 1,250 mcg (50,000 unit) capsule TAKE ONE CAPSULE BY MOUTH ONCE A WEEK active Not Available Not Available No t Available azelastine 137 mcg (0.1 %) nasal spray INSTILL 2 SPRAYS IN EACH NOSTRIL TWICE DAILY active Not Available Not Available No t Available levofloxaci n 500 mg tablet TAKE ONE TABLET BY MOUTH EVERY DAY FOR 7 DAYS 04/20 completed Not Available Not Available Not Available methylpredn isolone 4 mg tablets in a dose pack TAKE ACCORDING TO PACKAGE INSTRUCTI ONS --TAKE WITH FOOD-- -- FINISH ALL MEDICINE -- 04/20 completed Not Available Not Available Not Available ondansetron 4 mg disintegrat ing tablet DISSOLVE ONE TABLET BY MOUTH EVERY 8 HOURS NEEDED FOR NAUSEA AND VOMITING active Not Available Not Available No t Available cefdinir 300 mg capsule TAKE ONE CAPSULE BY MOUTH EVERY TWELVE HOURS FOR 10 DAYS -- FINISH ALL MEDICINE -- 04/20 completed Not Available Not Available Not Available fluticasone propionate 50 mcg/actuati on nasal spray,suspe nsion instill 2 SPRAYS IN EACH NOSTRIL EVERY DAY active Not Available Not Available No t Available atenolol 50 mg tablet TAKE ONE TABLET BY MOUTH EVERY DAY active Not Available Not Available No t Available loratadine 10 mg tablet TAKE ONE TABLET BY MOUTH EVERY DAY active Not Available Not Available No t Available spironolact one 50 mg tablet TAKE ONE TABLET BY MOUTH EVERY DAY active Not Available Not Available No t Available amoxicillin 875 mg-potassiu m clavulanate 125 mg tablet TAKE ONE TABLET BY MOUTH TWICE DAILY FOR 10 DAYS -- FINISH ALL MEDICINE -- active Not Available Not Available No t Available tobramycin 0.3 %-dexametha sone 0.1 % eye drops,suspe nsion INSTILL 2 DROPS TO LEFT EAR FOUR TIMES DAILY FOR FOURTEEN DAYS active Not Available Not Available No t Available escitalopra m 20 mg tablet TAKE ONE TABLET BY MOUTH EVERY DAY active Not Available Not Available No t Available cyclobenzap rine 5 mg tablet TAKE 1 TABLET BY MOUTH THREE TIMES DAILY NEEDED FOR MUSCLE SPASM FOR 5 DAYS active Not Available Not Available No t Available Premarin 0.625 mg/gram vaginal cream apply blueberry sized AMOUNT (1/2 gram) EVERY DAY AT BEDTIME FOR 2 WEEKS THEN apply TWICE A WEEK THEREAFTE R active Not Available Not Available No t Available ciprofloxac in 0.3 %-dexametha sone 0.1 % ear drops,suspe nsion place 4 drops into LEFT ear twice daily FOR 10 DAYS (--SHAKE WELL BEFORE USE--) 04/20 completed Not Available Not Available Not Available bupropion HCl XL 300 mg 24 hr tablet, extended release TAKE ONE TABLET BY MOUTH ONCE DAILY active Not Available Not Available No t Available bupropion HCl XL 150 mg 24 hr tablet, extended release TAKE ONE TABLET BY MOUTH ONCE DAILY active Not Available Not Available No t Available nitrofurant oin monohydrate /macrocryst als 100 mg capsule TAKE ONE CAPSULE BY MOUTH TWICE DAILY FOR 7 DAYS -- FINISH ALL MEDICINE -- 02/24 completed Not Available Not Available Not Available ProAir HFA 90 mcg/actuati on aerosol inhaler INHALE TWO PUFFS BY MOUTH EVERY 6 HOURS NEEDED 07/09 completed Not Available Not Available Not Available Advair HFA 115 mcg-21 mcg/actuati on aerosol inhaler INHALE TWO PUFFS BY MOUTH TWICE DAILY --RINSE MOUTH AFTER USE-- active Not Available Not Available No t Available Athlete's Foot (clotrimazo le) 1 % topical cream apply TO LEFT axilla TWICE DAILY 07/09 completed Not Available Not Available Not Available levocetiriz ine 5 mg tablet TAKE ONE TABLET BY MOUTH EVERY EVENING active Not Available Not Available No t Available Antiseptic Skin Cleanser (chlorhexid ine) 4 % liquid APPLY TOPICALLY TO THE AFFECTED AREA(S) ONCE DAILY if needed FOR wound care -- FOR EXTERNAL USE ONLY-- active Not Available Not Available No t Available Linzess 145 mcg capsule TAKE ONE CAPSULE BY MOUTH EVERY DAY BEFORE meals FOR constipat ion active Not Available Not Available No t Available Linzess 72 mcg capsule TAKE ONE CAPSULE BY MOUTH EVERY DAY 2024 active Not Available Not Available Not Avai lable Humira(CF) Pen 40 mg/0.4 mL subcutaneou s kit INJECT THE contents of 1 pen (0.4 ML) SUBCUTANE OUSLY ONCE A WEEK DIRECTED 2024 active Not Available Not Available Not Avai lable Vitals Date Recorded Body height Body mass index (BMI) Body weight Heart rate Systolic And Diastolic Provider Name and Address Organization Details Last Updated DateTime 08/26/2022 162.56 cm 34.7 kg/m2 97631.66 g 67 /min 137/99 mm[Hg] Claudine Mera [facility] & [place] 08/26/2022 09:09:42 Date Recorded Body weight Body mass index (BMI) Body height Body temperature Oxygen saturation Oxygen saturation in Arterial blood by Pulse oximetry Heart rate Heart rate Systolic And Diastolic Provider Name and Address Organization Details Last Updated DateTime 4 23575.4 8 g 36.1 kg/m2 162.56 cm 97.9 [degF] 97 % 97 % 81 /min 73 /min 142/92 mm[Hg] Katia Washington [facility] & [place] 4 10:05:46 Date Recorded Body height Body mass index (BMI) Body weight Body temperature Oxygen saturation Oxygen saturation in Arterial blood by Pulse oximetry Heart rate Systolic And Diastolic Provider Name and Address Organization Details Last Updated DateTime 4 162.56 cm 34.8 kg/m2 05942.2 5 g 97.3 [degF] 97 % 97 % 89 /min 130/82 mm[Hg] Eusebio Aj [facility] & [place] 4 15:54:29 Social History Question Answer Notes LastModified by Organizat ion Details LastModified Time Tobacco Smoking Status Former Smoker Claudine Mera null, [place] - [facility] [place] & [place] 08/26/2022 09:02:54 Do You Have An Advance Directive? Yes Information not available 08/26/2022 Are You Blind Or Do You Have Difficulty Seeing? No Information not available 08/26/2022 What Was The Date Of Your Most Recent Tobacco Screening? 08/25/2022 Information not available 08/26/2022 Are You Passively Exposed To Smoke? No Information not available 08/26/2022 How Much Tobacco Do You Smoke? No Information not available 08/26/2022 How Many Years Have You Smoked Tobacco? 20 Information not available 08/26/2022 Sex: Unknown Functional Status Question Answer Note LastModified by Organizat ion Details LastModified Time Do you use any illicit or recreational drugs? No Information not available 08/26/2022 What is your level of alcohol consumption? Occasional Information not available 08/26/2022 Do you or have you ever used smokeless tobacco? [id number] Information not available 08/26/2022 Mental Status Question Answer Note LastModified by Organizat ion Details LastModified Time Do you feel stressed (tense, restless, nervous, or anxious, or unable to sleep at night)? [id number] Information not available 08/26/2022 Family History Relationship Description Onset Age of this Age Resolved Age Notes LastModified by Organization Details LastModified Time Mother Autoimmune disease pt. added direct ly (08/25) [email or web address] Not available 08/25/2022 12:40:59 Mother Disorder of endocrine system pt. added direct ly (08/25) [email or web address] Not available 08/25/2022 12:41:11 Mother Hypertensive disorder pt. added direct ly (08/25) [email or web address] Not available 08/25/2022 12:41:44 Father Hypertensive disorder pt. added direct ly (08/25) [email or web address] Not available 08/25/2022 12:41:44 Medical History Condition Response Ear or Hearing Problems Y Kidney or Bladder Problems Y GI Problems Y Acne Y Anemia Y Reflux/GERD Y Headaches Y Hypertension Y Gynecological History Statement/Question Response Menses Monthly Y Abnormal Pap N Duration of Flow (days) 4 Current Control Method None Flow Moderate Date of LMP 08/18/2022 Sexually Active? Y Obstetrics History GPAL:G 0 P 0 0 0 0 Immunizations Vaccine Type Date Status Note Provider Nam e and Address Organization Details Recorded Time COVID-19, mRNA, LNP-S, PF, 100 mcg/0.5mL dose or 50 mcg/0.25mL dose 08/02/2020 completed Claudine Mera null, [place] [facility] [place] [facility] [place] 08/26/2022 09:10:00 COVID-19, mRNA, LNP-S, PF, 100 mcg/0.5mL dose or 50 mcg/0.25mL dose 08/30/2020 completed Claudine Mera null, [place] [facility] [place] [facility] [place] 08/26/2022 09:10:01 Influenza, recombinant, quadrivalent, PF 02/17/2024 completed Eusebio Aj null, [place] [facility] [place] [facility] [place] 04/20/2024 15:50:29 Past Encounters Encounter ID Performer Location Encounter Start Date Encounter Closed Date Diagnosis/Indication Diagnosis SNOMED-CT Code Diagnosis ICD10 Code Diagnosis Note [id number] Compa Yuan PA-C [facility] [address] [address] 08/26/2022 08:58:03 08/26/2022 09:41:56 Crohn's disease 49022255 K50.90 Gastroesop hageal reflux disease without esophagitis 130921437 K21.9 [id number] Compa Yuan PA-C [facility] [address] [address] 02/25/2023 08:58:27 02/25/2023 09:44:09 Crohn's disease 08608435 K50.90 Gastroesop hageal reflux disease without esophagitis 428817835 K21.9 [id number] ALICJA DAMIAN NP [facility] [address] [address] 12/15/2023 09:54:55 12/15/2023 10:41:54 Crohn's disease 60917860 K50.90 Gastroesop hageal reflux disease without esophagitis 524818019 K21.9 Chronic id iopathic constipation 38899591 K59.04 [id number] Compa Yuan PA-C [facility] [address] [address] 04/20/2024 15:44:33 04/20/2024 16:43:24 Crohn's disease 60737730 K50.90 Gastroesop hageal reflux disease without esophagitis 767657230 K21.9 Chronic id iopathic constipation 83755296 K59.04 [id number] Compa Yuan PA-C [facility] [address] [address] 05/17/2024 08:46:52 05/17/2024 09:17:05 Crohn's disease 77302287 K50.90 Gastroesop hageal reflux disease without esophagitis 949990103 K21.9 Chronic id iopathic constipation 53383071 K59.04 Diarrhea 21532587 R19.7 Abdominal pain 97938769 R10.9 Health Concerns Section Related Observation LastModified by Organization Detai ls LastModified Time None Recorded Concern Status LastModified by Organization Details LastModified Time None Recorded Advance Directives Directive Y: Payers Insurance Date Sequence Insurance Name Policy Number Policy Mitchell Covered Member ID Mitchell Member ID Guarantor Name 12/15/2023 1 [employer] [facility] (MEDICAID REPLACEMENT - HMO) [id number] Napoleon Zhao [id number] Napoleon Guo 06/21/2024 1 [facility] (MEDICAID HMO) Napoleon Cece [id number] Napoleon Guo Notes Date Note Type Note Provider Name and Address Organization Details Recorded Time 08/26/2022 text/html Ms. Zhao is a very pleasant 42-year-old female with history of fibrostenosing Crohn's ileitis diagnosed 11-13 years ago, currently on monotherapy with Humira injections once weekly who presents today for follow-up. She has a history of mild stricture of the terminal ileum seen on CTE July 2019. Her last colonoscopy was 01/02/2022 with normal TI and no signs of active disease. She feels very well currently. Humira dosing was previously increased to once weekly dosing due to low Humira levels and elevated fecal calprotectin in the setting of symptomatic disease. Currently, she is doing very well. She does report being out of her medication for the past 3 weeks and is in need of refills. Compa Yuan PA-C [address], [place], [address], [facility] & [place] 08/26/2022 19:45:04 02/25/2023 text/html Ms. Zhao is a very pleasant 42-year-old female with history of fibrostenosing Crohn's ileitis diagnosed 11-13 years ago, currently on monotherapy with Humira injections once weekly who presents today for 6 month follow-up. She has a history of mild stricture of the terminal ileum seen on CTE July 2019. Her last colonoscopy was 01/02/2022 with normal TI and no signs of active disease. Today, she presents via telephonic encounter for follow-up. She has remained in symptatic remission on once weekly dosing of Humira. Humira dosing was previously increased to once weekly dosing due to low Humira levels and elevated fecal calprotectin in the setting of symptomatic disease. She denies diarrhea or bloody stools. I spent a total of 7 minutes during this real-time clinical encounter that was initiated by the patient which started at 0911 and ended at 0918. Consent was obtained to engage in telephonic service. Greater than 50% of the time spent was devoted to counseling and coordinating care including review of patient record, patient lab data and studies as well as discussing diagnostic evaluation and workup, planned therapeutic intervention and further disposition of care. Compa Yuan PA-C [address], [place], [address], [facility] & [place] 02/25/2023 21:22:42 12/15/2023 text/html Previous (08-26-2022 Thania Yuan): Ms. Guo is a very pleasant 42-year-old female with history of fibrostenosing Crohn's ileitis diagnosed 11-13 years ago, currently on monotherapy with Humira injections once weekly who presents today for follow-up. She has a history of mild stricture of the terminal ileum seen on July 2019. Her last colonoscopy was 01/02/2022 with normal TI and no signs of active disease. She feels very well currently. Humira dosing was previously increased to once weekly dosing due to low Humira levels and elevated fecal calprotectin in the setting of symptomatic disease. Currently, she is doing very well. She does report being out of her medication for the past 3 weeks and is in need of refills. Previous (02-25-2023 Magan): Ms. Guo presents via telephonic encounter for follow-up. She has remained in symptatic remission on once weekly dosing of Humira. Humira dosing was previously increased to once weekly dosing due to low Humira levels and elevated fecal calprotectin in the setting of symptomatic disease. She denies diarrhea or bloody stools. Current (12/14/2023 Herbert): Ms. Farmer is a 43-year-old female with history of Crohn's ileitis currently on monotherapy with Humira. She has been maintained on once weekly dosing due to low Humira levels and symptomatic disease. She denies any abdominal pain, diarrhea or bloody stools. She does report several months constipation with hard bowel movements, straining and 1 occurrence of bright red blood with straining. Currently, stooling once or twice a week. Feelings of incomplete emptying and bloating. She has not tried any over counter laxatives. She reports previously using Linzess which was working well for her, but it was stopped during her Crohn's flare a while ago. She is unsure what dose she was on. Follow up 1 year ALICJA DAMIAN, JENN [address] , [place], [address], [facility] - [place] & [place] 12/15/2023 10:46:55 04/20/2024 text/html PREVIOUS (02/26/24): Ms. Zhao is a very pleasant 42-year-old female with history of fibrostenosing Crohn's ileitis diagnosed 11-13 years ago, currently on monotherapy with Humira injections once weekly who presents today for 6 month follow-up. She has a history of mild stricture of the terminal ileum seen on July 2019. Her last colonoscopy was 01/02/2022 with normal TI and no signs of active disease. Today, she presents via telephonic encounter for follow-up. She has remained in symptatic remission on once weekly dosing of Humira. Humira dosing was previously increased to once weekly dosing due to low Humira levels and elevated fecal calprotectin in the setting of symptomatic disease. She denies diarrhea or bloody stools. CURRENT (04/20/24): Ms. Guo returns to the office today for follow-up regarding Crohn's ileitis. She has continued Humira subcutaneous injections once weekly. She complains of bloating, right sided abdominal cramping, and loose stools for the past 4-5 weeks. She is taking Linzess 145 mcg every other day. She denies bloody stools. Compa Yuan PA-C [address] [facility], [place], [address], [facility] - [place] - [place] & [place] 04/20/2024 16:32:10 05/17/2024 text/html PREVIOUS (04/20/24): Ms. Guo returns to the office today for follow-up regarding Crohn's ileitis. She has continued Humira subcutaneous injections once weekly. She complains of bloating, right sided abdominal cramping, and loose stools for the past 4-5 weeks. She is taking Linzess 145 mcg every other day. She denies bloody stools. CURRENT (05/17/24): Ms. Guo presents via telephonic encounter today for follow-up regarding Crohn's disease with recent diarrhea, abdominal pain, and bloating. Recent labs showed elevated CRP/ESR. WBC count was mildly elevated. Her Humira AB was negative and drug level was mildly below the recommended therapeutic range for maintenance dosing despite being on weekly dosing. She has not yet submitted a stool specimen. She feels her symptoms are mildly improved since she decreased the dose of the Linzess. I spent a total of 7 minutes during this real-time clinical encounter that was initiated by the patient which started at 0917 and ended at 0924. Consent was obtained to engage in telephonic service. Greater than 50% of the time spent was devoted to counseling and coordinating care including review of patient record, patient lab data and studies as well as discussing diagnostic evaluation and workup, planned therapeutic intervention and further disposition of care. The patient requested telephonic encounter today due to difficulty making it in to the office and due to limited capability for televideo conferencing. The patient reports being physically located in the [facility] at the time of the encounter. The provider performing the visit was also physically located in the [facility] during the encounter Compa Yuan PA-C [address] [facility], [place], [address], [place] - [facility] - [place] & [place] 05/17/2024 14:26:57 OBGyn Episode No OBEpisode recorded.
--- OUTSIDE RECORDS SUMMARY | 2024-12-09 12:56 | XMS_ITS | Patient Health Record ---
Author Organization [facility] Address [address] [place] [address] [facility] [address] [place] [address] Care Team Providers Care Snagger Name Role Phone Oewn Mars Primary Care Provider [phone] Deja Carmichael Unavailable [phone] Jessy Nesbitt Unavailable [phone] Migration, Provider Unavailable Unavailable Allergies Allergen (clinical drug ingredient) Drug/Non Drug Allergy documented on EMR Reaction Allergy Type Onset Date Status Penicillin Unknown Drug Allergy Active tetracycline Tetracycline Unknown Drug Allergy A ctive Results Component Value Reference Range Notes Mammogram : Bilateral Reviewed date:07/15/2024 02:31:17 PM Interpretation: Performing Lab: Notes/Report: X ray : KUB Reviewed date:07/09/2024 09:40:59 AM Interpretation: Performing Lab: Notes/Report: Medications Medication SIG (Take, Route, Frequency, Duration) Notes Start Date End Date Status buPROPion HCl ER (XL) 150 MG 1 tab(s) orally every 24 hours; Duration: 30 days Active Potassium Chloride ER 10 mEq TAKE ONE CAPSULE BY MOUTH EVERY DAY; Duration: 30 Active Folic Acid 1 MG 1 tab(s) orally once a day; Duration: 30 day(s) Active NURTEC ODT 75 MG 1 TAB(S) ORALLY ONCE *Please re view for potential replacement for e-prescription and drug interaction check* 12/31/2021 Active Montelukast Sodium 10 mg TAKE ONE TABLET BY MOUTH EVERY DAY; Duration: 30 Active Vitamin D2 1.25 MG 1 CAP(S) ORALLY ONCE A WEEK; Duration: 86 DAYS *Please review and pick correct strength-formulat ion from [employer] options. If intended option is not shown, discontinue and re-order from Quick Search* Active HUMIRA 40 MG/0.8 ML DIRECTED SUBCUTANEOUSLY EVERY WEEK *Please review for potential replacement for e-prescription and drug interaction check* Active Chlorhexidine Gluconate 4% 1 ALDEN APPLIED TOPICALLY ONCE; Duration: 1 DAY(S) prn *Please review and pick correct strength-formulat ion from [employer] options. If intended option is not shown, discontinue and re-order from Quick Search* 09/30/2018 Active Fluticasone Propionate 50 MCG/ACT as directed in each nostril once a day; Duration: 30 day(s) Active Mupirocin 2 % 1 alden applied topically 3 times a day; Duration: 7 days 05/13/2024 Active Clindamycin HCl 300 MG 1 cap(s) orally 3 times a day; Duration: 10 days 11/02/2024 Active Semaglutide(0.25 or 0.5MG/DOS) 2 MG/3ML as directed Subcutaneous 11/09/2024 Active Advair HFA 115-21 MCG/ACT INHALE TWO PUFFS BY MOUTH TWICE DAILY --RINSE MOUTH AFTER USE--; Duration: 30 Active Omeprazole 40 MG 1 cap(s) orally once a day; Duration: 30 days Active Nyamyc 426267 UNIT/GM 1 alden applied topically 3 times a day; Duration: 14 days prn 01/06/2024 Active metFORMIN HCl 1000 MG 1 tab(s) orally 2 times a day; Duration: 90 days Active Atenolol 50 mg TAKE ONE TABLET BY MOUTH EVERY DAY; Duration: 90 Active Levocetirizine Dihydrochloride 5 MG 1 tab(s) orally once a day (in the evening); Duration: 30 days Active Align 4 MG 1 CAP(S) ORALLY ONCE A DAY; Duration: 30 DAYS *Please review and pick correct strength-formulat ion from [employer] options. If intended option is not shown, discontinue and re-order from Quick Search* 05/20/2024 Active Spironolactone 100 mg TAKE ONE TABLET BY MOUTH TWICE DAILY; Duration: 30 Active Ondansetron 4 MG 1 tab(s) orally every 6 hours; Duration: 7 days 07/06/2024 Active Escitalopram Oxalate 20 mg TAKE ONE TABLET BY MOUTH EVERY DAY; Duration: 30 Active Immunizations Vaccine Route Administration Date Status Comme nts Flublok IM Intramuscular 02/17/2024 Administered Social History Tobacco Use: Social History Observation Description Date Details (start date - stop date) Former Smoker NA - NA Smoking: Question Answer Notes Are you a: former smoker How long has it been since you last smoked? 1-5 years Problems Problem Type SNOMED Code ICD Code Onset Dates Problem Status W/U Status Risk Notes Problem Hypokalemia (74124857) Hypokalemia (E87.6) Active confirmed Problem Gangrene (868474575) Gangrene, not elsewhere classified (I96) Active confirmed Problem Deviated nasal septum (489266131) Deviated nasal septum (J34.2) Active confirmed Problem Hidradenitis suppurativa (71536760) Hidradenitis suppurativa (L73.2) Active confirmed Problem Dysuria (08961354) Dysuria (R30.0) Active confi rmed Problem Tobacco use (174166235) Tobacco use (Z72.0) Active confirmed Problem Allergy to penicillin (69054458) Allergy status to penicillin (Z88.0) Active confirmed Problem History of excision of intestinal structure (589198825) Acquired absence of other specified parts of digestive tract (Z90.49) Active confirmed Problem Vitamin B12 deficiency (257141479) Vitamin B12 deficiency (E53.8) Active confirmed Problem Anxiety disorder (694748162) Anxiety disorder (F41.9) Active confirmed Problem Mixed anxiety and depressive disorder (742594676) Depression with anxiety (F41.8) Active confirmed Problem Essential hypertension (31941399) HTN (hypertension), benign (I10) Active confirmed Problem Gastroesophageal reflux disease (473614458) GERD without esophagitis (K21.9) Active confirmed Problem Essential hypertension (25984365) Hypertension, essential (I10) Active confirmed Problem Asthma (135223292) Asthma (J45.909) Active confirmed Problem Crohn's disease (86429754) Crohn's disease (K50.90) Active confirmed Problem Allergic rhinitis (61260522) Chronic allergic rhinitis (J30.9) Active confirmed Problem Body mass index 30.00 to 34.99 (634245125051242) BMI 34.0-34.9,adult (Z68.34) Active confirmed Problem Back pain (122992537) Back pain (M54.9) Active confirmed Problem Palpitations (05515524) Palpitation (R00.2) Active confirmed Problem Gastroesophageal reflux disease with esophagitis (disorder) (431977103) GERD with esophagitis (K21.0) Active confirmed Problem Cigarette smoker (91336531) Cigarette smoker (F17.210) Active confirmed Problem Polycystic ovary syndrome (disorder) (221448543) PCOS (polycystic ovarian syndrome) (E28.2) Active confirmed Problem Chronic serous otitis media (37447478) Bilateral chronic serous otitis media (H65.23) Active confirmed Problem Obese class II (646681409929256) BMI 36.0-36.9,adult (Z68.36) Active confirmed Problem Uncomplicated moderate persistent asthma (531763646) Moderate persistent asthma without complication (J45.40) Active confirmed Problem Restless legs (67712068) Restless leg (G25.81) Active confirmed Problem Obese class II (063330669756697) BMI 35.0-35.9,adult (Z68.35) Active confirmed Problem Refractory migraine without aura (821836822) Intractable migraine without aura and with status migrainosus (G43.011) Active confirmed Problem Tobacco use (577478922) Tobacco use disorder (F17.200) Active confirmed Problem Otitis externa of left ear (5065157790160412) Recurrent otitis externa of left ear (H60.92) Active confirmed Problem Seasonal allergic rhinitis (722721371) Seasonal allergic rhinitis, unspecified trigger (J30.2) Active confirmed Problem Crohn's disease of small AND large intestines (20229687) Crohn''s disease of both small and large intestine with rectal bleeding (K50.811) Active confirmed Problem Methicillin resistant Staphylococcus aureus infection (131891913) MRSA infection (A49.02) Active confirmed Problem Chronic purulent otitis media (31258815) Chronic purulent otitis media of left ear (H66.3X2) Active confirmed Problem Allergy status to other antibiotic agents (Z88.1) Active confirmed Problem Abnormal taste in mouth (098948447) Abnormal taste in mouth (R43.2) Active confirmed Vital Signs Heart Rate 82 /min 11/09/2024 Temperature 98 degrees Fahrenheit 11/09/2024 Blood pressure diastolic 80 mm Hg 11/09/2024 Height 5 ft 4 in in 11/09/2024 Blood pressure systolic 122 mm Hg 11/09/2024 Weight 207 lbs 11/09/2024 BMI 35.53 kg/m2 11/09/2024 Encounters Encounter Location Date Provider Diagnosis [facility] [address] [place] [address] 08/21/2024 Provider Migration Recurrent acute serous otitis media of both ears H65.06 and Nausea and vomiting in adult R11.2 [facility] [address] [place] [address] 12/23/2023 Jessy McNees Chronic diffuse otitis externa of left ear H60.312 ; Recurrent acute serous otitis media of both ears H65.06 ; Yeast dermatitis B37.2 and BMI 35.0-35.9,adult Z68.35 [facility] [address] [place] [address] [place] [address] 01/06/2024 Jessy McNees Recurrent otitis externa of left ear H60.92 ; Bilateral chronic serous otitis media H65.23 ; BMI 35.0-35.9,adult Z68.35 and Yeast dermatitis B37.2 [facility] [address] [place] [address] [place] [address] 02/17/2024 Jessy McNees Immunization(s) administered Z23 ; Weight loss counseling, encounter for Z71.3 and Obesity, Class II, BMI 35-39.9 E66.812 [facility] [address] [place] [address] 04/08/2024 Jessy McNees Viral URI J06.9 and BMI 34.0-34.9,adult Z68.34 [facility] [address] [place] [address] 04/27/2024 Jessy McNees Left chronic otitis media H66.92 ; MRSA infection A49.02 and Abscess of face L02.01 [facility] [address] [address] 05/13/2024 Owen Mars Cellulitis, face L03.211 [facility] [address] [address] 05/20/2024 Owen Mars Cellulitis, face L03.211 [facility] [address] [place] [address] 07/06/2024 Jessy McNees Nausea and vomiting in adult R11.2 ; Crohn''s disease of both small and large intestine with rectal bleeding K50.811 and Visit for screening mammogram Z12.31 [facility] [address] [address] 11/02/2024 Owen Mars Insect bite (nonvenomous) of abdominal wall, initial encounter S30.861A and Hidradenitis suppurativa L73.2 [facility] [address] [address] 11/09/2024 Owen Mars PCOS (polycystic ovarian syndrome) E28.2 and BMI 35.0-35.9,adult Z68.35 [facility] [address] [facility] [address] [place] [address] 05/06/2024 Jessy McNees [facility] [address] [address] 06/09/2024 Jessy McNees [facility] [address] [place] [address] [place], [place] [address] 07/06/2024 Jessy McNees Breast cancer screening by mammogram Z12.31 Assessments Encounter Date Diagnosis (ICD Code) Assessment Notes Treatment Notes Treatment Clinical Notes Section Notes 12/23/2023 Recurrent acute serous otitis media of both ears (ICD-10 - H65.06) 12/23/2023 Chronic diffuse otitis externa of left ear (ICD-10 - H60.312) Keep ear canal dry. Treat with abx gtts. Treat serous effusions as below. If no improvement in 3-4 weeks will refer to ENT 01/06/2024 Bilateral chronic serous otitis media (ICD-10 - H65.23) 01/06/2024 Recurrent otitis externa of left ear (ICD-10 - H60.92) Refer to ENT for evaluation and further recommendations. 02/17/2024 Immunization(s) administered (ICD-10 - Z23) 02/17/2024 Weight loss counseling, encounter for (ICD-10 - Z71.3) Weight is down total of 5lbs. Discussed low carb bread alternatives, needs for lean proteins and continued exercise. Recommend [id number] jesus diet, exercise 30 min 4 days a week. RTC in 3 months for weight check or sooner prn 04/27/2024 Left chronic otitis media (ICD-10 - H66.92) Continue tobradex, Bactrim DS and supportive care. Keep FU with ENT 04/27/2024 MRSA infection (ICD-10 - A49.02) 05/13/2024 Cellulitis, face (ICD-10 - L03.211) Emphasize need for regular and frequent hot compresses. Start antibiotics as noted, short-term follow-up in 1 week. May need plastics evaluation to remove the lesion 05/20/2024 Cellulitis, face (ICD-10 - L03.211) Will refill Rx. Continue Augmentin. Has appointment with ENT on May 26 and she will ask them about removal of the nodule. I think that certainly reasonable. Diflucan for some yeast symptoms she is having as well as probiotics 07/06/2024 Nausea and vomiting in adult (ICD-10 - R11.2) Stop probiotic, unlikely the cause but timeline of starting correlates with onset of symptoms. May be related to constipation, Crohn's. Will check KUB. Cassia diet, no caffeine or fruit juice. If KUB unremarkable and symptoms persistent next week, recommend to call Dr. Schumacher to schedule FU. Urgent return precautions discussed. 07/06/2024 Crohn''s disease of both small and large intestine with rectal bleeding (ICD-10 - K50.811) 07/06/2024 Breast cancer screening by mammogram (ICD-10 - Z12.31) 08/21/2024 Recurrent acute serous otitis media of both ears (ICD-10 - H65.06) 08/21/2024 Nausea and vomiting in adult (ICD-10 - R11.2) 11/02/2024 Hidradenitis suppurativa (ICD-10 - L73.2) Start Doxycycline, Clindamycin, and Predisone pack Follow-up with specialist 11/02/2024 Insect bite (nonvenomous) of abdominal wall, initial encounter (ICD-10 - S30.861A) Continue supportive measures as well as antibiotics 11/09/2024 PCOS (polycystic ovarian syndrome) (ICD-10 - E28.2) Patient really needs metabolic improvement and issues with PCOS need help. Already maxed out on oral therapy. Start GLP agent. I gave patient samples, instructed on how to use the medication. Will follow-up in 6 weeks. 11/09/2024 BMI 35.0-35.9,adult (ICD-10 - Z68.35) 04/08/2024 Viral URI (ICD-10 - J06.9) Reassurance. Discussed the etiology & expected course of a viral URI and discussed the rationale for not prescribing antibiotics. Continue supportive care with PRN antipyretics, appropriate OTC cough/cold meds, nasal saline rinses, cough drops, and humidifier. Encourage PO hydration. Hold Humira dose this week. Discussed the signs and symptoms of worsening condition and need for reassessment in clinic or ED. 04/08/2024 BMI 34.0-34.9,adult (ICD-10 - Z68.34) Decrease buproprion to 150mg po daily. RTC in 4 weeks if mood does no improve or sooner if mood worsens 04/27/2024 Abscess of face (ICD-10 - L02.01) Bactrim may help with some with the abscess however given it's fluctuance, tenderness and size recommend urgent referral to dermatology for I&D. Warm compresses, otherwise no squeezing or attempting to drain 07/06/2024 Visit for screening mammogram (ICD-10 - Z12.31) 02/17/2024 Obesity, Class II, BMI 35-39.9 (ICD-10 - E66.812) 01/06/2024 BMI 35.0-35.9,adult (ICD-10 - Z68.35) Diet, exercise, weight loss discussed. continue wellbutrin 12/23/2023 Yeast dermatitis (ICD-10 - B37.2) Keep clean, dry, treat with topical and oral antifungals as above. Once rash has healed apply deodorant for prevention 01/06/2024 Yeast dermatitis (ICD-10 - B37.2) improved. Keep clean and dry. Change to nystatin powder as above 12/23/2023 BMI 35.0-35.9,adult (ICD-10 - Z68.35) Positive reassurance on weight loss. Long discussion about current BMI, discussed current exercise and diet - and discussed healthy alternatives. Advised to utilize alden for tracking calories. Aim for 6813-6404 calories per day. Discussed avoiding calories in sugary beverages and increasing water intake. Recommend lean protein, lots of veggies. Discussed portion control. Increase exercise to goal of 30 minutes 5 days per week. Discussed the health benefits of weight loss and follow up goals. Plan Of Treatment Pending Test Test Name Order Date N-Rapid Influenza Test 04/07/2007 Holter Monitor, 48 hour 11/18/2018 H-CBC with AUTO DIFF 11/05/2011 C-BASIC METABOLIC 01/25/2019 M-Comprehensive Metabolic Panel 11/19/19 M-Magnesium 11/18/2018 M-Free T4 (Free Thyroxine) 11/18/2018 M-Thyroid Stimulating Hormone 11/18/2018 M-Vitamin B12 11/18/2018 M-Vitamin B12 12/27/2020 M-Vitamin D 25 Hydroxy 12/27/2020 M-Miscellaneous Culture 02/23/2022 Next Appt Details Provider Name:Owen Carson Madisyn, 12/22/2024 12:00:00 PM, [address] [place] [facility] [address], [place], [address], Insurance Providers Payer Name Payer Address Payer Phone Subscriber Number Group Number Insured Name Patient Relationship to Insured Coverage Start Date Coverage End Date [employer] [address] [address] [place] [address] [id number] Napoleon Guo Self - patient is the insured Medications Administered Medication Instructions Date of Administration Dosage Notes Ceftriaxone 500 01/24/2023 500 mg Cyanocobalamin/B-12 Pt's Own Medication 12/22/2018 1 mL Dexamethasone 4mg Injection 04/08/2024 4 mg Medical (General) History Medical History History ICD Code allergies asthma depression Crohns disease - followed by Dr Sams in [place] - colonoscopy 09/10 with tubular adenomas HTN Hidradenitis supp. MRSA LT EAR Surgical History Surgery Date(Month/Year) T&A septoplasty colonoscopy tubal ligation Appendectomy 08/2018 Hospitalization History Reason Date(Month/Year) Crohns above
--- NOTE | 2024-12-09 12:57 | PC.NURSE ---
FSBS 108
[2024-12-09 13:07] LABS: Hematocrit 37.5 % (37.0-47.0); Hemoglobin 12.2 g/dL (12.2-16.2); Immature Granulocytes % 0.3 %; Mean Corpuscular HGB Conc 32.5 g/dL (31.8-35.4); Mean Corpuscular Hemoglobin 31.0 pg (27.0-31.2); Mean Corpuscular Volume 95.2 fl (81-99); Nucleated Red Blood Cells % 0 %; Platelet Count 505 K/mm3 (142-424); Red Blood Count 3.94 M/mm3 (4.20-5.40); Red Cell Distribution Width-SD 41.2 fL; White Blood Count 14.0 K/mm3 (4.8-10.8)
[2024-12-09] MEDS: MECLIZINE 25MG TABLET 25 MG PO (13:13)
[2024-12-09 13:19] LABS: Alanine Aminotransferase 23 U/L (12-78); Albumin Level 4.4 g/dl (3.5-5.0); Albumin/Globulin Ratio 1.0 (1.1-1.8); Alkaline Phosphatase 77 U/L (38-126); Anion Gap 13.0 mEq/L (5-15); Aspartate Amino Transferase 34 U/L (14-36); Bilirubin,Total 0.6 mg/dl (0.2-1.3); Blood Urea Nitrogen 9 mg/dl (7-17); Calcium 9.5 mg/dl (8.4-10.2); Carbon Dioxide 28 mmol/L (22.0-30.0); Chloride 101 mmol/L (98-107); Creatinine Clearance Estimated 111 mL/min (50-200); Creatinine,Serum 0.90 mg/dl (0.52-1.04); Estimated Glomerular Filt Rate 69 ml/min (>60); GFR (African American) 83 ML/MIN (>60); Globulin 4.3 g/dL (1.3-3.2); Glucose 109 mg/dl (74-100); Magnesium 1.6 mg/dl (1.6-2.3); Potassium 4.0 mmoL/L (3.5-5.1); Sodium 138 mmol/L (136-145); Total Protein,Serum 8.7 g/dl (6.3-8.2)
[2024-12-09 13:24] LABS: C-Reactive Protein 68.4 mg/L (0-4)
--- NOTE | 2024-12-09 13:28 | CT_ITS ---
FINAL REPORT CLINICAL HISTORY: Dizziness and headache FINDINGS: CTA HEAD TECHNIQUE: Thin section axial CT with contrast with 3D MIP reconstruction This study was performed with techniques to keep radiation doses as low as reasonably achievable, (ALARA). Individualized dose reduction techniques using automated exposure control or adjustment of mA and/or kV according to the patient''s size were employed. No aneurysm is seen. Major intracranial vessels are patent without significant stenosis. . IMPRESSION: Unremarkable This study was performed using automated techniques to achieve radiation exposure as low as reasonably achievable Reviewed, Interpreted and Dictated by Jamie Lux MD Transcribed by Sophia Mas Authenticated and . [facility]
--- NOTE | 2024-12-09 13:28 | CT_ITS ---
FINAL REPORT CLINICAL HISTORY: Dizziness and headache FINDINGS: CT NECK ANGIO, WITHOUT AND WITH CONTRAST TECHNIQUE: Thin section axial CT with contrast with multiplanar 3D MIP reconstruction. This study was performed with techniques to keep radiation doses as low as reasonably achievable, (ALARA). Individualized dose reduction techniques using automated exposure control or adjustment of mA and/or kV according to the patient''s size were employed. NASCET criteria and technique was utilized during interpretation. Aortic arch: Arch shows no significant narrowing. Great vessel origins are widely patent. Right carotid: No significant stenosis is seen of the cervical common or internal carotid artery. Left carotid: No significant stenosis is seen of the cervical common or internal carotid artery. Vertebrals: Left vertebral artery is dominant. No significant stenosis is present. IMPRESSION: No significant stenosis of the cervical carotid arteries This study was performed using automated techniques to achieve radiation exposure as low as reasonably Reviewed, Interpreted and Dictated by Jamie Lux MD Transcribed by Sophia Mas Authenticated and [facility]
--- NOTE | 2024-12-09 13:28 | CT_ITS ---
FINAL REPORT TECHNIQUE: Noncontrast exam This study was performed with techniques to keep radiation doses as low as reasonably achievable, (ALARA). Individualized dose reduction techniques using automated exposure control or adjustment of mA and/or kV according to the patient''s size were employed. CLINICAL HISTORY: Dizziness and headache FINDINGS: No abnormal density is seen. Ventricles are normal. There is no hemorrhage. No mass effect is seen. Bone windows show no evidence of fracture. IMPRESSION: No acute findings Reviewed, Interpreted and Dictated by Jamie Lux MD Transcribed by Sophia Mas Authenticated and [facility]
[2024-12-09 13:44] LABS: HCG Qualitative, Serum Negative (Negative)
[2024-12-09] MEDS: ACETAMINOPHEN 500MG TAB 1000 MG PO (13:44)
[2024-12-09] MEDS: 0.9 % SODIUM CHLORIDE 1000ML 1,000 ML 999 ML IV (13:47)
[2024-12-09 13:48] LABS: Free Thyroxine Index 2.4 ug/dL (5.93-13.13); T4 (Thyroxine) 7.4 ug/dl (5.53-11.0); Triiodothryronine (T3) Uptake 33 % (23.5-40.5)
--- NOTE | 2024-12-09 13:56 | PC.NURSE ---
PT MEDICATED PER EMAR, WARM BLANKET PROVIDED. CALL LIGHT WITHIN REACH
[2024-12-09 14:02] LABS: Thyroid Stimulating Hormone 1.23 uIU/mL (0.465-4.68)
--- NOTE | 2024-12-09 14:19 | PC.NURSE ---
PT TO CT
[2024-12-09] MEDS: SODIUM CHLORIDE 0.9% 10ML SYR (RAD ONLY) 10 ML IV (14:25)
[2024-12-09] MEDS: 0.9 % SODIUM CHLORIDE 50 ML VIAL IV (14:25)
[2024-12-09] MEDS: IOPAMIDOL-370 (76%);100ML BOTTLE 80 ML IV (14:25)
--- NOTE | 2024-12-09 14:30 | PC.NURSE ---
PT RETURNED FROM CT
--- NOTE | 2024-12-09 14:33 | PC.NURSE ---
ROUNDED ON PT, REPORTS SHE FEELS ABOUT THE SAME PROVIDER NOTIFIED
[2024-12-09] MEDS: diazePAM 5MG TABLET 5 MG PO (15:19)
--- NOTE | 2024-12-09 16:13 | PC.NURSE ---
DEXTER REYES ATTEMPTED TO CONTACT THE HOSPITALIST TO ADMIT THE PT. THE HOSPITALIST WILL REACH BACK OUT IN APPROXIMATELY 12 MINUTES.
--- NOTE | 2024-12-09 16:21 | PC.NURSE ---
pt and family updated on poc
--- NOTE | 2024-12-09 16:34 | PC.NURSE ---
venu speaking with hospitalist for admission
--- NOTE | 2024-12-09 16:42 | PC.NURSE ---
PT UPDATED ON BED STATUS, NO NEEDS AT THIS TIME
--- NOTE | 2024-12-09 17:20 | PC.NURSE ---
I NOTIFIED HS OF THE NEED FOR A BED TO ADMIT THE PT TO THE HOSPITALIST FOR VERTIGO
--- NOTE | 2024-12-09 17:38 | PC.NURSE ---
REPORT CALLED TO COLBY TRIVEDI
[2024-12-09 17:48] LABS: Hepatitis C Ab Qual. W/ RFX NEGATIVE (Negative)
--- OUTSIDE RECORDS SUMMARY | 2024-12-09 18:29 | XMS_ITS | Encounter Summary ---
Author Organization [facility] Address [address] [place] [address] Care Team Providers Care High [employer] Band Teacher Name Role Phone Owen Mars MD Primary Care Provider [phone] Reason for Referral * Consultation (Routine) - Authorized Specialty Diagnoses / Procedures Referred By Contac t Referred To Contact Plastic Surgery Diagnoses Hidradenitis suppurativa Owen Mars MD [address] [place] [id number] Phone: tel: fax: Referral ID Status Reason Start Date Expiration Date Visits Requested Visits Authorized [id number] Authorized Specialty Services Required 11/02/2024 05/04/2026 1 1 Encounter Details Date Type Department Care Team (Latest Contact Info) Description 11/02/2024 Community [facility] [address] [place] [address] Owen Mars MD [address] [place] [address] Hidradenitis suppurativa (Primary Dx) Social History Tobacco [...] documented as of this encounter Care Teams High School Band Teacher Relationship Specialty Start Date End Date Owen Mars MD [address] [address] [place] [id number] PCP - General Internal Medicine 04/25/22 documented as of this encounter
--- OUTSIDE RECORDS SUMMARY | 2024-12-09 18:29 | XMS_ITS | Encounter Summary ---
Author Organization [facility] Address [address] [place] [address] Care Team Providers Care Lieutenant Colonel Name Role Phone Owen Mars MD Primary Care Provider [phone] Encounter Details Date Type Department Care Team (Latest Contact Info) Description 03/28/2023 [facility] [address] [place] [address] Deja Carmichael, HISTORY DEPARTMENT CHAIR [address] [place] [address] Crohn's disease of intestine without complication (CMS/HCC) [...] documented as of this encounter Care Teams Lieutenant Colonel Relationship Specialty Start Date End Date Owen Mars MD [address] [address] [place] [id number] PCP - General Internal Medicine 04/25/22 documented as of this encounter
--- OUTSIDE RECORDS SUMMARY | 2024-12-09 18:29 | XMS_ITS | Clinical Summary ---
Author Organization [facility] Address [address] [place] [address] Care Team Providers Care User Experience Team Lead Name Role Phone Owen Mars MD Primary Care Provider [phone] Allergies Active Allergy Reactions Criticality Noted Date [...] day. Active ergocalciferol (Vitamin D-2) 1.25 MG (41603 UT) capsule Take 1 capsule (50,000 Units) [...] (06/14/2022): Added automatically from request for surgery [id number] Encounters Date Type Department Care Team Description 11/02/2024 [facility] [address] [place] [address] Owen Mars MD Hidradenitis suppurativa (Primary Dx) from Last 3 Months Family History Medical History Relation Name Comments Colon polyps Father Arthritis Mother Zahnna Asthma Mother Zhanna Autoimmune disease Mother Zhanna [...] 2003 [facility]-Cervical Cancer Screening 2012 [facility]-HPV/Cotest 2012 [id number] Vaccine (3 - Moderna risk series) 09/27/2020 [...] IgM Negative Negative 07/02/2023 3:34 PM EST [facility] Blood Venous blood specimen / Unknown Venipuncture / Unknown 07/02/2023 1:40 PM EST 07/02/2023 1:40 PM EST Shelley Hernandez APRN LAB BLOOD ORDERABLES Final Result [facility] [address] [place] [address] from Last 3 Months or Most Recently Relevant to Health Maintenance Insurance [place] [id number] [facility] MEDICAID Care Teams User Experience Team Lead Relationship Specialty Start Date End Date Owen Mars MD [address] [address] [place] [id number] PCP - General Internal Medicine 04/25/22
[2024-12-09] MEDS: HEPARIN SODIUM 5,000 UNIT/ML VIAL 5000 UNIT SUBCUT (20:43)
[2024-12-09] MEDS: ACETAMINOPHEN 325MG TAB 650 MG PO (20:46)
--- NOTE | 2024-12-09 21:30 | EXP.HP ---
History of Present Illness *Admission Date: 12/09/24 *Reason for visit:: weakness, dizziness *History of present illness: 44-year-old female who recently started Ozempic 5 weeks ago for obesity and hidradenitis suppurativa. Presented to the ER with complaint of dizziness worse over the past week. Began on Friday. Has gotten somewhat worse since then. States she has been having poor p.o. intake. Nausea but no aj emesis. No diarrhea. No fever or chills. Has lost approximately 15 pounds in the past month. Dizziness worse with standing or turning her head to the right. Denies focal neurologic symptoms. No weakness in arms or legs. Just overall feels generally heavy. Stable on room air. Workup in the ER with CT of head negative for stroke. Labs showed white count of 14. Medicine consulted for admission and further management of her unresolved dizziness. On arrival to the floor, she is hemodynamically stable. Denies cough, shortness of breath, hemoptysis. Having normal bowel movements. Does report that she is just been eating poorly since starting Ozempic. Recently increased her dose this week. Forgets to stay hydrated and drink. Has been taking her blood pressure meds with no dose changes since starting Ozempic. [facility] Disclaimer: The information contained in this section may have been updated after the patient was seen, as this information can be updated by other users. Medical History (Updated 12/10/24 @ 00:24 by David Delacruz MD) Chronic otitis media of left ear with perforated tympanic membrane Recurrent candidiasis of vagina Candidal intertrigo Tinnitus, left ear Otalgia, left ear Yeast vaginitis Vulvar lesion Mixed hearing loss of left ear Normal hearing test of right ear Cerumen impaction Drainage from left ear Hearing difficulty of left ear Hidradenitis suppurativa Anemia Anxiety Cancer Asthma Hypertension Surgical History H/O tubal ligation History of colonoscopy History of incision and drainage History of tympanostomy tube placement History of tonsillectomy History of cholecystectomy History of section History of appendectomy Family History Other Diabetes Hypertension Social History Smoking Status: Former smoker tobacco type: cigarettes packs per day: 1 second hand exposure: Yes alcohol intake: current alcohol intake frequency: holidays/special occasions only substance use type: denies use current occupational status: unemployed Travel in the last 8 weeks?: None housing: house caffeine: Yes Have you lived/traveled outside US in past 30 days?: No Contact w/someone who lives/traveled outside US past 30 days?: No Exposure to someone with infectious disease in past 14 days?: No Do you have a fever (greater than 100.4 F or 38 C)?: No Have you tested positive for COVID-19?: No Exposed to someone with COVID-19 in past 14 days?: No Do you have a sore throat?: No Do you have a cough?: No Do you have any weakness?: No Do you have any diarrhea?: No Are you experiencing any unusual bleeding?: No Do you have any muscle aches/pain?: No Do you have any abdominal pain?: No Are you experiencing loss of taste or smell?: No Other Medical History Have you received the Flu Vaccine for this season: No Have you received the Pneumonia Vaccine: No Review of Systems Review of Systems Review of systems (narrative): 14 point review of systems performed, pertinent positives and negatives as per HPI Meds Home Medications and Allergies Home Medications ?Medication ?Instructions ?Recorded ?Confirmed ?Type atenolol 50 mg tablet 50 mg PO DAILY 10/29/23 12/09/24 History escitalopram oxalate 20 mg tablet 20 mg PO DAILY 10/29/23 12/09/24 History loratadine 10 mg tablet 10 mg PO DAILY 10/29/23 12/09/24 History montelukast 10 mg tablet 10 mg PO DAILY 10/29/23 12/09/24 History omeprazole 40 mg capsule,delayed 40 mg PO DAILY 10/29/23 12/09/24 History release potassium chloride 10 mEq 10 meq PO DAILY 10/29/23 12/09/24 History capsule,extended release spironolactone 100 mg tablet 100 mg PO DAILY 10/29/23 12/09/24 History bupropion HCl 300 mg 24 hr tablet, 300 mg PO DAILY 11/17/23 12/09/24 History extended release cetirizine 10 mg tablet 10 mg PO DAILY 11/17/23 12/09/24 History azelastine 137 mcg (0.1 %) nasal 2 spray intranasal BID #30 mL 01/15/24 12/09/24 Rx spray nystatin 100,000 unit/gram topical 0 unit topical DAILY PRN prn 02/02/24 12/09/24 History powder (Nystop) ketotifen fumarate 0.025 % (0.035 2 drp ophthalmic (eye) DAILY 08/25/24 12/09/24 History %) eye drops fluticasone propionate 115 2 puff inhalation BID 08/26/24 12/09/24 History mcg-salmeterol 21 mcg/actuation HFA inhaler (Advair HFA) adalimumab 40 mg/0.4 mL 40 mg (0.4 mL) SQ WEEKLY #4 ea 11/22/24 12/09/24 Rx subcutaneous pen kit (Humira(CF) Pen) meclizine 25 mg tablet 25 mg PO QID PRN dizziness #20 tabs 12/09/24 Rx prednisone 50 mg tablet 50 mg PO DAILY 5 days #5 tabs 12/09/24 Rx semaglutide 0.25 mg or 0.5 mg (2 0.25 mg SQ WEEKLY 12/09/24 12/09/24 History mg/1.5 mL) subcutaneous pen injector (Ozempic) New Prescriptions to Start Prescriptions: meclizine Rocky Dodd prednisone Rocky Dodd Allergies Allergy/AdvReac Type Severity Reaction Status Date / Time tetracycline (TETRACYCLINE) Allergy Severe Difficulty Verified 12/09/24 16:16 Breathing Penicillins (PENICILLINS) Allergy Unknown Unknown Verified 12/09/24 16:16 allergy reaction Exam Data for Last 24 hours Vital signs and Labs for Last 24 Hours: Temp Pulse Resp BP Pulse Ox O2 Del Method 98.7 F 81 18 104/60 L 99 Room Air 12/09/24 20:00 12/09/24 20:00 12/09/24 20:00 12/09/24 20:00 12/09/24 20:00 12/09/24 20:00 Laboratory Results - last 24 hr 12/09/24 12:48: WBC 14.0 H, RBC 3.94 L, Hgb 12.2, Hct 37.5, MCV 95.2, MCH 31.0, MCHC 32.5, RDW 11.8, Plt Count 505 H, MPV 10.0, Neut % (Auto) 70.3, Lymph % (Auto) 18.8, Sequoyah % (Auto) 7.0, Eos % (Auto) 3.4, Baso % (Auto) 0.2, Neut # (Auto) 9.8 H, Lymph # (Auto) 2.6, Sequoyah # (Auto) 1.0, Eos # (Auto) 0.5 H, Baso # (Auto) 0.0, ESR 79 H, Sodium 138, Potassium 4.0, Chloride 101, Carbon Dioxide 28, Anion Gap 13.0, BUN 9, Creatinine 0.90, Estimated Creat Clear 111, Estimated GFR 69, Est GFR ( Amer) 83, Glucose 109 H, Calcium 9.5, Magnesium 1.6, Total Bilirubin 0.6, AST 34, ALT 23, Alkaline Phosphatase 77, C-Reactive Protein 68.4 H, Total Protein 8.7 H, Albumin 4.4, Globulin 4.3 H, Albumin/Globulin Ratio 1.0 L, TSH 1.23, Free T4 Index 2.4 L, Thyroxine (T4) 7.4, T3 Uptake 33, Serum HCG, Qual Negative, HCV Ab TERESA w/Rflx PCR Qn Negative, HIV Ag/Ab Combo Qual Negative I & O for Last 24 hours: Intake & Output 12/06/24 12/07/24 12/08/24 12/09/24 23:59 23:59 23:59 23:59 Weight 86.183 kg Constitutional Constitutional: no acute distress, obese and cooperative *Routine HEENT Exam Head: Present normocephalic Eye: Present EOMI and PERRL ENT: Present mucous membranes moist *Routine Neck Exam Neck: Present supple *Routine Respiratory Exam Respiratory: Present CTA bilaterally; Absent rhonchi, wheezes or crackles *Routine Cardiovascular Exam Cardiovascular: Present RRR *Routine Abdominal Exam Abdominal: Present soft and normoactive bowel sounds; Absent tenderness *Routine Rectal Exam Rectal:: deferred *Routine Genitalia Exam Genitalia:: deferred *Routine Extremities Exam Extremities: Absent cyanosis, clubbing or edema *Routine Skin Exam Skin: Present warm; Absent rash Comments: Active at bedtime lesions in right axilla and on left lower abdomen. Scant drainage from 2 lesions in right axilla. Scabbed lesions on left lower abdomen. *Routine Neurological Exam Neurological: Present alert, oriented X3 and moving all extremities; Absent altered mental status Assessment and Plan *Assessment and plan (1) Dizziness: Status: Acute Category: Medical Code(s): R42 - Dizziness and giddiness (2) Crohns disease of small intestine: Status: Acute Category: Medical Code(s): K50.00 - Crohn's disease of small intestine without complications (3) Axillary hidradenitis suppurativa: Status: Acute Category: Medical Code(s): L73.2 - Hidradenitis suppurativa (4) Obesity (BMI 30.0-34.9): Status: Acute Category: Medical Code(s): E66.811 - Obesity, class 1 (5) Anxiety: Status: Chronic Category: Medical Code(s): F41.9 - Anxiety disorder, unspecified (6) Hypertension: Status: Chronic Category: Medical Code(s): I10 - Essential (primary) hypertension Plan 44-year-old female who started Ozempic 5 weeks ago. Presented with dizziness and weakness. Symptoms of gotten worse over the past week. On workup in the ER, labs nonactionable. Initial imaging of head with no concern for stroke. Given persistent dizziness and weakness, medicine consulted for admission and further management. Discussed case with ER physician, request admission for fluid resuscitation and observation overnight. I decided to admit for further IV fluids, medication adjustments, therapy eval. Problems addressed as follows: Initial blood pressure on arrival with systolics 90s to 100s. states this is not normal for her. Dizziness worse with standing. Has lost approximately 15 pounds in the past month after starting Ozempic. Poor p.o. intake. Continuing to take her blood pressure meds. - Presentation suspicious for mild dehydration and orthostasis causing her dizziness along with poor p.o. intake secondary to her Ozempic. - Hold atenolol and spironolactone - Encourage p.o. intake. Additional 1 L of LR at 250 cc an hour overnight. - Therapy to evaluate in the morning, consider Berkley maneuver if has persistent vertigo - Per my review of CT of head, no acute stroke, mass effect, large vessel occlusions. - Electrolytes normal with sodium 138, potassium 4.0, chloride 101. Kidney function normal with BUN 9, creatinine 0.9. Glucose 109. Hidradenitis suppurativa - White count elevated at 14. Unclear if this is stress reaction versus infection. Will administer clindamycin 600 mg IV every 6 hours for empiric coverage of at HS - Repeat CBC, BMP, magnesium ordered for the morning - CRP elevated at 68 Immunosuppressed on Humira for her Crohn's. EKG with normal sinus rhythm Thyroid normal with TSH 1.2 Obesity complicates all aspects of her care Full code Heparin subcu 3 times daily 5000 units Regular diet
[2024-12-09] MEDS: CLINDAMYCIN PHOSPHATE/D5W 600 MG/50 ML PIGGYBACK 100 MG IV (22:47)
[2024-12-09] MEDS: LACTATED RINGERS 1000ML 1,000 ML 250 ML IV (23:13)
[2024-12-10] VITALS (8 sets, daily range): BP systolic 104–129; BP diastolic 62–85; PULSE 71–100; RESP 15–16; TEMP 36.6–36.8; O2SAT 93–99; BMI 33.5
--- NOTE | 2024-12-10 00:10 | PC.NURSE ---
Patient wanted applejuice. Patient does not need anything else at this time, call light is near 1210
[2024-12-10] MEDS: ACETAMINOPHEN 325MG TAB 650 MG PO ×2 (01:00→10:40)
--- NOTE | 2024-12-10 04:24 | PC.NURSE ---
Blue linen bags were taken out, ice was filled, and bedside table was reorganized and wiped at this time. [id number]
[2024-12-10] MEDS: CLINDAMYCIN PHOSPHATE/D5W 600 MG/50 ML PIGGYBACK 100 MG IV ×4 (04:34→22:36)
--- NOTE | 2024-12-10 05:05 | PC.NURSE ---
Pt is A&Ox4. Pt is on RA. Pt reports a feeling of dizziness and a very slight headache. Pt medicated per JUL far pain as well as other medications. Pt was given 1L of LR @ 250/hr. Pt denies this helping her vertigo. Pt has had no other acute changes. Pt resting w/ call light in reach and family at bedside. POC ongoing.
[2024-12-10 05:46] LABS: Anion Gap 11.0 mEq/L (5-15); Blood Urea Nitrogen 7 mg/dl (7-17); Calcium 9.0 mg/dl (8.4-10.2); Carbon Dioxide 27 mmol/L (22.0-30.0); Chloride 104 mmol/L (98-107); Creatinine Clearance Estimated 129 mL/min (50-200); Creatinine,Serum 0.80 mg/dl (0.52-1.04); Estimated Glomerular Filt Rate 79 ml/min (>60); GFR (African American) 95 ML/MIN (>60); Glucose 129 mg/dl (74-100); Potassium 4.0 mmoL/L (3.5-5.1); Sodium 138 mmol/L (136-145)
[2024-12-10 05:47] LABS: Hematocrit 31.6 % (37.0-47.0); Immature Granulocytes % 0.6 %; Mean Corpuscular HGB Conc 32.6 g/dL (31.8-35.4); Mean Corpuscular Hemoglobin 31.2 pg (27.0-31.2); Mean Corpuscular Volume 95.8 fl (81-99); Nucleated Red Blood Cells % 0 %; Platelet Count 453 K/mm3 (142-424); Red Blood Count 3.30 M/mm3 (4.20-5.40); Red Cell Distribution Width-SD 41.1 fL; White Blood Count 14.5 K/mm3 (4.8-10.8)
[2024-12-10 05:54] LABS: Hemoglobin 10.2 g/dL (12.2-16.2)
--- NOTE | 2024-12-10 06:38 | PC.NURSE ---
Trash taken out at 0640
[2024-12-10] MEDS: HEPARIN SODIUM 5,000 UNIT/ML VIAL 5000 UNIT SUBCUT ×3 (08:45→20:25)
[2024-12-10] MEDS: ESCITALOPRAM 20MG TABLET 20 MG PO (08:46)
[2024-12-10] MEDS: LACTATED RINGERS 1000ML 1,000 ML 125 ML IV (10:40)
--- NOTE | 2024-12-10 11:44 | HMH.PTEV ---
Physical Therapy Evaluation Rehab PT IP Evaluation Start: 12/09/24 22:29 Freq: ONCE Status: Active Protocol: Document 12/10/24 11:40 PHORNE (Rec: 12/10/24 11:44 PHORNE [id number]) Subjective/History History History 44-year-old female who recently started Ozempic 5 weeks ago for obesity and hidradenitis suppurativa. Presented to the ER with complaint of dizziness worse over the past week. Began on Friday. Has gotten somewhat worse since then. States she has been having poor p.o. intake. Nausea but no aj emesis. No diarrhea. No fever or chills. Has lost approximately 15 pounds in the past month. Dizziness worse with standing or turning her head to the right. Denies focal neurologic symptoms. No weakness in arms or legs . Just overall feels generally heavy. Stable on room air. Workup in the ER with CT of head negative for stroke. Labs showed white count of 14. Medicine consulted for admission and further management of her unresolved dizziness. Pt reports she is generally independent with all mobility and ADLs without AD. Subjective Subjective Pt continues to c/o mild dizziness/vertigo with certain head positions, worse on the R side. She agrees to treatment this am. [facility] How much help from another person do you currently need... Turning from your None back to your side while in a flat bed without using bedrails? Moving from lying on None back to sitting on the side of a flat bed without using bedrails? Moving to and from a None bed to a chair ( including a wheelchair)? Standing up from a None chair using your arms? (e.g., wheelchair, bedside chair) Walking in hospital None room? Climbing 3-5 steps None with a railing? Mobility Score 24 Mobility Level [facility] Mobility 8 Walk 250 feet or more Mobility Calculator Rehab PT IP Eval Objective Appearance Patient Behavior Appropriate Patient Orientation Person,Place,Time Difficulty following none instructions Speech Pattern Clear Ambulation Patient Able to Yes Ambulate Ambulation Observation IP General Gait No Deviations/Normal Pattern Observation Ambulation Distance 10 (feet) Ambulation Assistive None Device Ambulation Ability Independent Balance Ability to Arise Able, uses arms to help Sitting Balance Steady, safe Standing Balance Steady, wide stance Dynamic Sitting Good Balance Ability Dynamic Standing Good Balance Ability Transfers Bed Transfer Ability Independent Chair Transfer Independent Ability Sit to Stand Bed Independent Transfer Ability Sit to Stand Chair Independent Transfer Ability Rehab PT IP prob,goals,plan Problems Date of Evaluation: 12/10/24 Discharge Plan PT Discharge Plan Pt presents with likely R side PSC canalithiasis combined with dehydration. Samburg-Hallpike test positive on R side for upbeating nystagmus. WARPER TENDER performed to treat these symptoms. No current need for skilled acute inpatient therapy services and is appropriate to return home once medically stable for d/c. Recommend further OUTPATIENT work-up if vertigo continues to be problematic. Eval Complexity Eval Charge Codes 40774 - Moderate Complexity PHYSICIAN CERTIFICATION: I certify the specified therapy services for Napoleon Yolandamayur Guo are required, authorized, and reviewed every 30 days.
[2024-12-10 12:02] LABS: Hemoglobin A1C 5.0 % (4.0-6.0)
--- NOTE | 2024-12-10 12:52 | P.PN_ITS ---
<Statement entered by Pedrito Rbobins MD - 12/18/24 17:30> Agree with PUBLIC RELATIONS ANALYST note as documented Subjective *Date: 12/10/24 *Time: 12:52 Interval history: Patient doing well sitting up in the bed has been at bedside, she states she is still having intermittent dizziness. Holding BP meds at this time. IV hydration. Medical Exam Vital signs and Labs for Last 24 Hours: Vital Signs Temp Pulse Pulse Resp BP BP Pulse Ox 12/10/24 11:00 12/10/24 09:30 91 H 12/10/24 09:00 12/10/24 08:53 94 L 12/10/24 08:00 98.0 F 86 16 112/77 94 L 12/10/24 06:50 12/10/24 06:48 12/10/24 05:00 12/10/24 04:00 97.9 F 79 16 104/62 L 93 L 12/10/24 03:00 12/10/24 01:00 12/09/24 23:00 12/09/24 21:00 12/09/24 20:00 12/09/24 20:00 98.7 F 81 18 104/60 L 99 12/09/24 18:53 12/09/24 17:39 12/09/24 17:38 98.5 F 80 18 113/67 12/09/24 17:30 73 113/67 94 L 12/09/24 17:01 77 108/67 L 97 12/09/24 17:00 83 98 12/09/24 16:30 74 106/72 L 97 12/09/24 16:00 88 120/81 98 12/09/24 15:30 78 109/68 L 97 12/09/24 15:00 78 105/69 L 98 12/09/24 14:30 84 121/79 97 12/09/24 14:00 82 106/69 L 98 12/09/24 13:00 85 97/75 L 97 O2 Del Method 12/10/24 11:00 Room Air 12/10/24 09:30 12/10/24 09:00 Room Air 12/10/24 08:53 Room Air 12/10/24 08:00 Room Air 12/10/24 06:50 Room Air 12/10/24 06:48 Room Air 12/10/24 05:00 Room Air 12/10/24 04:00 Room Air 12/10/24 03:00 Room Air 12/10/24 01:00 Room Air 12/09/24 23:00 Room Air 12/09/24 21:00 Room Air 12/09/24 20:00 Room Air 12/09/24 20:00 Room Air 12/09/24 18:53 Room Air 12/09/24 17:39 Room Air 12/09/24 17:38 Room Air 12/09/24 17:30 12/09/24 17:01 12/09/24 17:00 12/09/24 16:30 12/09/24 16:00 12/09/24 15:30 12/09/24 15:00 12/09/24 14:30 12/09/24 14:00 12/09/24 13:00 Intake and Output 12/09/24 12/10/24 12/10/24 23:59 07:59 15:59 Intake Total 50 / 50 120 / 800 680 / 800 Output Total 0 / 450 450 / 450 Balance 50 / 50 120 / 350 230 / 350 Intake: Intake, Oral Amount 120 / 800 680 / 800 Infusion Intake 50 / 50 Clindamycin Phosphate/D5w 600 50 / 50 mg In 50 ml @ 100 mls/hr IV Q6H [facility] Rx#:[id number] Output: Output, Urine Amount 0 / 450 450 / 450 Other: Number of Unmeasured Voids 1 1 Number of Bowel Movements 2 Weight 89.176 kg Patient Weight 12/10/24 23:59 Weight 89.176 kg Laboratory Results - last 24 hr 12/09/24 12:48: WBC 14.0 H, RBC 3.94 L, Hgb 12.2, Hct 37.5, MCV 95.2, MCH 31.0, MCHC 32.5, RDW 11.8, Plt Count 505 H, MPV 10.0, Neut % (Auto) 70.3, Lymph % (Auto) 18.8, [place] % (Auto) 7.0, Eos % (Auto) 3.4, Baso % (Auto) 0.2, Neut # (Auto) 9.8 H, Lymph # (Auto) 2.6, [place] # (Auto) 1.0, Eos # (Auto) 0.5 H, Baso # (Auto) 0.0, ESR 79 H, Sodium 138, Potassium 4.0, Chloride 101, Carbon Dioxide 28, Anion Gap 13.0, BUN 9, Creatinine 0.90, Estimated Creat Clear 111, Estimated GFR 69, Est GFR ( Amer) 83, Glucose 109 H, Calcium 9.5, Magnesium 1.6, Total Bilirubin 0.6, AST 34, ALT 23, Alkaline Phosphatase 77, C-Reactive Protein 68.4 H, Total Protein 8.7 H, Albumin 4.4, Globulin 4.3 H, Albumin/Globulin Ratio 1.0 L, TSH 1.23, Free T4 Index 2.4 L, Thyroxine (T4) 7.4, T3 Uptake 33, Serum HCG, Qual Negative, HCV Ab TERESA w/Rflx PCR Qn Negative, HIV Ag/Ab Combo Qual Negative 12/10/24 05:19: WBC 14.5 H, RBC 3.30 L, Hgb 10.2 L D, Hct 31.6 L, MCV 95.8, MCH 31.2, MCHC 32.6, RDW 11.7, Plt Count 453 H, MPV 9.9, Neut % (Auto) 90.1 H, Lymph % (Auto) 7.2 L, [place] % (Auto) 2.0, Eos % (Auto) 0.0 L, Baso % (Auto) 0.1, Neut # (Auto) 13.1 H, Lymph # (Auto) 1.1, [place] # (Auto) 0.3, Eos # (Auto) 0.0, Baso # (Auto) 0.0, Sodium 138, Potassium 4.0, Chloride 104, Carbon Dioxide 27, Anion Gap 11.0, BUN 7, Creatinine 0.80, Estimated Creat Clear 129, Estimated GFR 79, Est GFR ( Amer) 95, Glucose 129 H, Hemoglobin A1c 5.0, Calcium 9.0 I & O for Labs for Last 24 Hours: Intake & Output 12/07/24 12/08/24 12/09/24 12/10/24 23:59 23:59 23:59 23:59 Intake Total 50 / 50 800 / 800 Output Total 450 / 450 Balance 50 / 50 350 / 350 Weight 86.183 kg 89.176 kg Constitutional: Present no acute distress, obese and cooperative Head: Present atraumatic Eyes: Present as per HPI Neck: Present normal inspection; Absent tenderness Respiratory: Present CTA bilaterally, normal respiratory effort, able to speak in complete sentences and symmetric chest movement; Absent wheezes or crackles Cardiac: Present Reg Rate and Rhythm GI: Present soft and normal bowel sounds; Absent distention or tenderness Rectal (female): Present deferred (female): Present deferred Extremities: Present normal inspection Skin: Present intact and dry Neuro: Present alert, awake and oriented x 3 Assessment and Plan *Assessment and plan (1) Dizziness: Status: Acute Category: Medical Code(s): R42 - Dizziness and giddiness (2) Crohns disease of small intestine: Status: Acute Category: Medical Code(s): K50.00 - Crohn's disease of small intestine without complications (3) Axillary hidradenitis suppurativa: Status: Acute Category: Medical Code(s): L73.2 - Hidradenitis suppurativa (4) Obesity (BMI 30.0-34.9): Status: Acute Category: Medical Code(s): E66.811 - Obesity, class 1 (5) Anxiety: Status: Chronic Category: Medical Code(s): F41.9 - Anxiety disorder, unspecified (6) Hypertension: Status: Chronic Category: Medical Code(s): I10 - Essential (primary) hypertension Plan 44-year-old female who started Ozempic 5 weeks ago. Presented with dizziness and weakness. Symptoms of gotten worse over the past week. On workup in the ER, labs nonactionable. Initial imaging of head with no concern for stroke. Given persistent dizziness and weakness, medicine consulted for admission and further management. Discussed case with ER physician, request admission for fluid resuscitation and observation overnight. I decided to admit for further IV fluids, medication adjustments, therapy eval. Problems addressed as follows: #Dizziness ?Patient still complains of dizziness this morning, states it is not much better. Currently holding blood pressure medication. Patient's blood pressure stable 112/77. IV hydration 125 mL/h. ?Initial blood pressure on arrival with systolics 90s to 100s. states this is not normal for her. Dizziness worse with standing. Has lost approximately 15 pounds in the past month after starting Ozempic. Poor p.o. intake. Continuing to take her blood pressure meds. Meclizine ordered as needed. - Presentation suspicious for mild dehydration and orthostasis causing her dizziness along with poor p.o. intake secondary to her Ozempic. Orthostatics pending. - Continue to hold atenolol and spironolactone - Encourage p.o. intake. Additional 1 L of LR at 250 cc an hour overnight. - Therapy to evaluate in the morning, consider Berkley maneuver if has persistent vertigo. PT assessed patient this morning [place]?Hallpike test positive on right side for up beating nystagmus PIPE FITTER SUPERVISOR MAINTENANCE performed to treat the symptoms. Recommendations patient can return home when medically stable and continue with outpatient workup if vertigo continues. - CT of head unremarkable. - Electrolytes normal with sodium 138, potassium 4.0, chloride 104. Kidney function normal with BUN 7, creatinine 0.8. Glucose 129. ?A1c 5.0. #Hidradenitis suppurativa - White count elevated at 14 on admission, 14.5 today. unclear if this is stress reaction versus infection. Continue clindamycin 600 mg IV every 6 hours for empiric coverage of at HS - Repeat CBC, BMP, magnesium ordered for the morning - CRP elevated at 68 #Immunosuppressed on Humira for her Crohn's. EKG with normal sinus rhythm, patient placed on telemetry for complaints of flutters/palpitations. Thyroid normal with TSH 1.2 Obesity complicates all aspects of her care Full code Heparin subcu 3 times daily 5000 units Regular diet
--- NOTE | 2024-12-10 18:10 | PC.NURSE ---
SHIFT NOTE: Pt is alert and oriented x4 Pt has c/o headache today. tylenol was taken and drank mt dew to help. Orthostatic obtained. Pt is on telemetry SR with a rate of 94. has been at the bedside most of the afternoon. JACKSON DILLON RN
[2024-12-10] MEDS: PANTOPRAZOLE 40MG TABLET 40 MG PO (20:25)
[2024-12-11] VITALS: PULSE 84
[2024-12-11 04:00] VITALS: BP 117/70; PULSE 80; RESP 17; TEMP 36.7; O2SAT 98; BMI 33.7
[2024-12-11] MEDS: CLINDAMYCIN PHOSPHATE/D5W 600 MG/50 ML PIGGYBACK 100 MG IV ×3 (04:21→17:19)
--- NOTE | 2024-12-11 07:16 | EXP.DC.SUM ---
General Admission date:: 12/09/24 HPI HPI HPI: 44-year-old female who recently started Ozempic 5 weeks ago for obesity and hidradenitis suppurativa. Presented to the ER with complaint of dizziness worse over the past week. Began on Friday. Has gotten somewhat worse since then. States she has been having poor p.o. intake. Nausea but no aj emesis. No diarrhea. No fever or chills. Has lost approximately 15 pounds in the past month. Dizziness worse with standing or turning her head to the right. Denies focal neurologic symptoms. No weakness in arms or legs. Just overall feels generally heavy. Stable on room air. Workup in the ER with CT of head negative for stroke. Labs showed white count of 14. Medicine consulted for admission and further management of her unresolved dizziness. On arrival to the floor, she is hemodynamically stable. Denies cough, shortness of breath, hemoptysis. Having normal bowel movements. Does report that she is just been eating poorly since starting Ozempic. Recently increased her dose this week. Forgets to stay hydrated and drink. Has been taking her blood pressure meds with no dose changes since starting Ozempic. Hospital Course Hospital Course Hospital Course: 44-year-old female who started Ozempic 5 weeks ago. Presented with dizziness and weakness. Symptoms of gotten worse over the past week. On workup in the ER, labs nonactionable. Initial imaging of head with no concern for stroke. Given persistent dizziness and weakness, medicine consulted for admission and further management. Discussed case with ER physician, request admission for fluid resuscitation and observation overnight. I decided to admit for further IV fluids, medication adjustments, therapy eval. Problems addressed as follows: #Dizziness - improved, patient counseled to follow up with ENT as OP, likely BPPV #Hidradenitis suppurativa - dc on oral abx #Immunosuppressed on Humira for her Crohn's. follow up with ENT and PCP in 1 week Exam Data for Last 24 hours Vital signs and Labs for Last 24 Hours: Temp Pulse Resp BP Pulse Ox O2 Del Method 98.0 F 80 17 117/70 98 Room Air 12/11/24 04:00 12/11/24 04:00 12/11/24 04:00 12/11/24 04:00 12/11/24 04:00 12/11/24 04:00 Laboratory Results - last 24 hr 12/10/24 05:19: Hemoglobin A1c 5.0 I & O for Last 24 hours: Intake & Output 12/08/24 12/09/24 12/10/24 12/11/24 23:59 23:59 23:59 23:59 Intake Total 50 / 50 2390 / 2390 Output Total 450 / 450 Balance 50 / 50 1940 / 1940 Weight 86.183 kg 89.176 kg 89.721 kg Results Data Completed and Pending Labs on day of discharge: Labs from last 24 hours 12/10/24 05:19 Hemoglobin A1c 5.0 DS: Diagnosis Discharge Diagnosis (1) Dizziness: Status: Acute Code(s): R42 - Dizziness and giddiness (2) Crohns disease of small intestine: Status: Acute Code(s): K50.00 - Crohn's disease of small intestine without complications (3) Axillary hidradenitis suppurativa: Status: Acute Code(s): L73.2 - Hidradenitis suppurativa (4) Obesity (BMI 30.0-34.9): Status: Acute Code(s): E66.811 - Obesity, class 1 (5) Anxiety: Status: Chronic Code(s): F41.9 - Anxiety disorder, unspecified (6) Hypertension: Status: Chronic Code(s): I10 - Essential (primary) hypertension Meds Home Medications and Allergies Home Medications ?Medication ?Instructions ?Recorded ?Confirmed ?Type atenolol 50 mg tablet 50 mg PO DAILY 10/29/23 12/13/24 History escitalopram oxalate 20 mg tablet 20 mg PO DAILY 10/29/23 12/13/24 History loratadine 10 mg tablet 10 mg PO DAILY 10/29/23 12/13/24 History montelukast 10 mg tablet 10 mg PO HS 10/29/23 12/13/24 History omeprazole 40 mg capsule,delayed 40 mg PO DAILY 10/29/23 12/13/24 History release potassium chloride 10 mEq 10 meq PO DAILY 10/29/23 12/13/24 History capsule,extended release spironolactone 100 mg tablet 100 mg PO BID 10/29/23 12/13/24 History cetirizine 10 mg tablet 10 mg PO DAILY 11/17/23 12/13/24 History ketotifen fumarate 0.025 % (0.035 2 drp ophthalmic (eye) BID 08/25/24 12/13/24 History %) eye drops fluticasone propionate 115 2 puff inhalation BID 08/26/24 12/13/24 History mcg-salmeterol 21 mcg/actuation HFA inhaler (Advair HFA) adalimumab 40 mg/0.4 mL 40 mg (0.4 mL) SQ WEEKLY #4 ea 11/22/24 12/13/24 Rx subcutaneous pen kit (Humira(CF) Pen) meclizine 25 mg tablet 25 mg PO QID PRN dizziness #20 tabs 12/09/24 12/13/24 Rx semaglutide 0.25 mg or 0.5 mg (2 0.25 mg SQ WEEKLY 12/09/24 12/13/24 History mg/1.5 mL) subcutaneous pen injector (Ozempic) bupropion HCl 150 mg 24 hr tablet, 150 mg PO DAILY 12/10/24 12/13/24 History extended release dicyclomine 10 mg capsule mg PO 12/13/24 12/13/24 History levocetirizine 5 mg tablet mg PO 12/13/24 12/13/24 History New Prescriptions to Start Prescriptions: meclizine Rocky Dodd Allergies Allergy/AdvReac Type Severity Reaction Status Date / Time tetracycline (TETRACYCLINE) Allergy Severe Difficulty Verified 12/13/24 11:44 Breathing Penicillins (PENICILLINS) Allergy Unknown Unknown Verified 12/13/24 11:44 allergy reaction Discharge Plan Disposition Patient Disposition: Home, Self-Care Condition: Fair Follow up Plan Follow up with: Yolanda Arroyo APRN [Nurse Practitioner, Ear, Nose, Throat] - 12/16/24 10:40 am Jessy Nesbitt APRN [Nurse Practitioner, Medical] - 12/14/24 9:15 am Prescriptions/Medication Reconciliation: New meclizine 25 mg tablet 25 mg PO QID PRN (Reason: dizziness) Qty: 20 0RF Continued cetirizine 10 mg tablet 10 mg PO DAILY Patient Comments: TAKE ONE TABLET BY MOUTH EVERY DAY ketotifen fumarate 0.025 % (0.035 %) drops 2 drp ophthalmic (eye) BID Patient Comments: instill 1 drop IN EACH EYE TWICE DAILY dicyclomine 10 mg capsule PO levocetirizine 5 mg tablet PO Humira(CF) Pen 40 mg/0.4 mL pen injector kit 40 mg SQ WEEKLY Qty: 4 12RF Rx Instructions: Please inject 40 mg subcutaneously weekly fluticasone propion-salmeterol [Advair HFA] 115-21 mcg/actuation HFA aerosol inhaler 2 puff INHALATION BID Patient Comments: INHALE TWO PUFFS BY MOUTH TWICE DAILY --RINSE MOUTH AFTER USE-- Ozempic 0.25 mg or 0.5 mg(2 mg/1.5 mL) Pen Injector 0.25 mg SQ WEEKLY Rx Instructions: for 4 weeks bupropion HCl 150 mg tablet extended release 24 hr 150 mg PO DAILY Patient Comments: TAKE ONE TABLET BY MOUTH EVERY DAY potassium chloride 10 mEq capsule, extended release 10 meq PO DAILY Patient Comments: TAKE ONE CAPSULE BY MOUTH EVERY DAY spironolactone 100 mg tablet 100 mg PO BID Patient Comments: TAKE ONE TABLET BY MOUTH TWICE DAILY omeprazole 40 mg capsule,delayed release(DR/EC) 40 mg PO DAILY Patient Comments: TAKE ONE CAPSULE BY MOUTH EVERY DAY montelukast 10 mg tablet 10 mg PO HS Patient Comments: TAKE ONE TABLET BY MOUTH EVERY DAY atenolol 50 mg tablet 50 mg PO DAILY Patient Comments: TAKE ONE TABLET BY MOUTH EVERY DAY loratadine 10 mg tablet 10 mg PO DAILY Patient Comments: TAKE ONE TABLET BY MOUTH EVERY DAY escitalopram oxalate 20 mg tablet 20 mg PO DAILY Patient Comments: TAKE ONE TABLET BY MOUTH EVERY DAY Problem Reconciliation Problems Reviewed?: Yes Patient Discharge Instructions ACTIVITY: Continue current activity DIET: continue same diet Patient Instructions: DI for Vertigo Print Language: Palestinian Providers Primary Care Provider: Owen Mars Provider: Pedrito Robbins Attending Provider: Pedrito Robbins
[2024-12-11 07:28] LABS: Hematocrit 29.4 % (37.0-47.0); Hemoglobin 9.6 g/dL (12.2-16.2); Immature Granulocytes % 0.4 %; Mean Corpuscular HGB Conc 32.7 g/dL (31.8-35.4); Mean Corpuscular Hemoglobin 31.5 pg (27.0-31.2); Mean Corpuscular Volume 96.4 fl (81-99); Nucleated Red Blood Cells % 0 %; Platelet Count 412 K/mm3 (142-424); Red Blood Count 3.05 M/mm3 (4.20-5.40); Red Cell Distribution Width-SD 42.7 fL; White Blood Count 12.3 K/mm3 (4.8-10.8)
[2024-12-11 07:48] LABS: Blood Urea Nitrogen 8 mg/dl (7-17); Calcium 8.7 mg/dl (8.4-10.2); Carbon Dioxide 29 mmol/L (22.0-30.0); Chloride 106 mmol/L (98-107); Creatinine Clearance Estimated 115 mL/min (50-200); Creatinine,Serum 0.90 mg/dl (0.52-1.04); Estimated Glomerular Filt Rate 69 ml/min (>60); GFR (African American) 83 ML/MIN (>60); Glucose 86 mg/dl (74-100); Sodium 140 mmol/L (136-145)
[2024-12-11 07:50] LABS: Anion Gap 8.1 mEq/L (5-15); Potassium 3.1 mmoL/L (3.5-5.1)
[2024-12-11 08:00] VITALS: BP 128/71; PULSE 101; PULSE 84; RESP 18; TEMP 36.7; O2SAT 97
[2024-12-11] MEDS: ESCITALOPRAM 20MG TABLET 20 MG PO (08:02)
[2024-12-11] MEDS: HEPARIN SODIUM 5,000 UNIT/ML VIAL 5000 UNIT SUBCUT ×2 (08:02→13:54)
[2024-12-11 12:00] VITALS: PULSE 82
--- NOTE | 2024-12-11 15:11 | PC.NURSE ---
notified MD about patients potassium level due to the electrolyte protocol not ordered
[2024-12-11 16:00] VITALS: BP 105/63; PULSE 80; PULSE 89; RESP 14; TEMP 36.6; O2SAT 97
[2024-12-11] MEDS: MECLIZINE 25MG TABLET 25 MG PO (16:25)
--- NOTE | 2024-12-11 16:26 | PC.NURSE ---
MD ordered electrolyte replacement protocol.
[2024-12-11] MEDS: POTASSIUM CHLORIDE 20MEQ TAB 40 MEQ PO (17:19)
--- NOTE | 2024-12-11 18:13 | PC.NURSE ---
pt is A&Ox4. she is on room air. pt has had a couple dizzy spells today. other than that she has had no other complaints. call light within reach.
--- NOTE | 2024-12-11 19:58 | PC.NURSE ---
Patient was discharged from the floor and left with nursing staff + spouse via wheelchair at 19:44.
--- NOTE | 2024-12-13 10:37 | SW/DCPLANNER ---
Spoke with patient on the phone. Patient stated that she is about the same. Patient stated that she has not picked up her new medicine. Patient stated that she is aware of her upcoming appointments. Patient stated that she has no concerns or questions at this time. Mavis Gardner
== END 2024-12-11 19:44 | disposition home or self-care (01) ==
LOC: ER 17:17 → 2ND 17:40 → ER 18:27
PROVIDERS: Physician Assistant; Admitting Provider Internal Medicine; Emergency Provider Emergency Medicine; PCP Internal Medicine Adolescent Medicine; Visit Provider Internal Medicine
DX: R42 Dizziness and giddiness (principal); K50.00 Crohn's disease of small intestine without complications; L73.2 Hidradenitis suppurativa; E66.811 Obesity, class 1; I10 Essential (primary) hypertension; J45.909 Unspecified asthma, uncomplicated; F41.9 Anxiety disorder, unspecified; K21.9 Gastro-esophageal reflux disease without esophagitis; D84.9 Immunodeficiency, unspecified; R51.9 Headache, unspecified; F32.A Depression, unspecified; Z68.33 Body mass index [BMI] 33.0-33.9, adult; Z88.1 Allergy status to other antibiotic agents; Z88.0 Allergy status to penicillin; Z87.891 Personal history of nicotine dependence; Z79.899 Other long term (current) drug therapy; Z79.620 Long term (current) use of immunosuppressive biologic; Z79.51 Long term (current) use of inhaled steroids
CPT/HCPCS: 36415; 70450; 70496; 70498; 80048; 80053; 83036; 83735; 84436; 84443; 84479; 84703; 85025; 85651; 86140; 86803; 87389; 93005; 94640; 96361; 96365; 96376; 97162; 99285; G0378; J0736; J1644; J7030; J7120; Q9967

== ENCOUNTER 2024-12-31 09:54 | Outpatient (RCR) | payer OTHER, SELFPAY ==
--- NOTE | 2024-12-31 14:10 | HMH.PTOPEV ---
PT Outpatient Evaluation Rehab PT Outpatient Evaluation Start: 12/31/24 11:58 Freq: Status: Active Protocol: Document 12/31/24 11:59 PHORNE (Rec: 12/31/24 14:10 PHORNE [id number]) E-signed By Miguel Mendoza, PT Outpatient Therapy Subjective History Subjective History This is the initial PT eval for Napoleon Guo, 44 yowf who presents with c/o vertigo x ~ 1 mo with insidious onset of symptoms. She reports she was hospitalized after symptoms initially began. She reports she has improved over the past several weeks, but continues to feel vertigo symptoms most pronounced with moving her head to the R side. She reports symptoms are intermittent and last only a few seconds at a time. She has no other current c/o. Chief Complaint Other Level of pain today 0 (0-10) Balance Eval Hx of Falls Hx Falls No Nystagmus Nystagmus Presence None Oculomotor Gaze Oculomotor Gaze Nml: Vergence Smooth Pursuit Saccades VOR Cancellation Cover/Uncover Cross Cover Miscellaneous Dx PT Eval Objective Objective Occulomotor testing performed: Gaze Evoked Nystagmus test positive for symptom reproduction. Otherwise, Saccades, smooth pursuit, VOR cancellation, visual tracking laterally are all negative for symptoms. [place]-Hallpike and Horizontal Roll testing performed and no nystagmus or symptoms noted B with either test. Outpatient Therapy Assessment Impairments Problems/ Impaired Self Care/Self Management Impairmments Prognosis Rehab Potential Good Comment Signs and symptoms most consistent with R side UVH. Skilled therapy is indicated in order to reduce instances of vertigo in order to aid pt improvement in QOL. Clinical Impression Consistent with Yes Diagnosis PT Patient Goals PT Patient Goals PT Short Term In 2 wks pt will: Patient Goals 1) Reduce instances of vertigo with movement to minimal . PT Retirement Patient In 2 wks pt will: Goals 1) Reduce instances of vertigo with movement to none. Outpatient Therapy Plan of Care Treatment Plan May Include Therapeutic Exercise Yes Including Home Exercise Program Neuromuscular Re- Yes education Therapeutic Yes Activities to Return to Previous Functional/Work Level Eval/Re-Eval Yes Frequency Times per week 1 Duration Number of Weeks 4 Addendums This patient is a No candidate for social or vocational rehab ? Patient/Guardian Yes verbally acknowledges understanding of treatment program and consents to further treatment? Patient/Guardian Yes verbally acknowledges understanding of diagnosis, prognosis and goals for treatment? Eval Complexity PT Charges 77675 - Moderate Complexity Shoulder/Elbow Eval Shoulder Objective Measurements Elbow Objective Measurements PHYSICIAN CERTIFICATION: I certify the specified therapy services for Napoleonana luisa Guo are required, authorized, and reviewed every 30 days.
== END 2024-12-31 23:59 | disposition home or self-care (01) ==
LOC: PT 09:54
PROVIDERS: Visit Provider Internal Medicine Adolescent Medicine
DX: R42 Dizziness and giddiness (principal)
CPT/HCPCS: 97110; 97162

== ENCOUNTER 2024-12-31 11:00 | Emergency (ER) | payer OTHER, SELFPAY ==
--- OUTSIDE RECORDS SUMMARY | 2024-12-14 05:15 | XMS_ITS ---
Author Organization [facility] Address [address] [place] [address] Care Team Providers Care Supervisor Scenic Arts Name Role Phone RebecahelioRashidOwen Primary Care Provider Deja Carmichael Unavailable [phone] Jessy Nesbitt Unavailable [phone] Allergies Allergen (clinical drug ingredient) Drug/Non Drug Allergy documented on EMR Reaction Allergy Type Onset Date Status Penicillin Unknown Drug Allergy Active tetracycline Tetracycline Unknown Drug Allergy A ctive Results Component Value Reference Range Notes COMPREHENSIVE METABOLIC ADRIEL Cheng ([id number]) Reviewed date:12/17/2024 12:07:15 PM Interpretation: Performing Lab:[facility], [facility] [id number] [facility], [facility] [id number] [place] Notes/Report: NON-FASTING; NON-FASTING; NON-FASTING GLUCOSE 87 65-99 mg/dL Fasting reference interval UREA NITROGEN (BUN) 9 7-25 mg/dL CREATININE 0.87 0.50-0.99 mg/dL EGFR 85 > OR = 60 mL/min/1.73m2 BUN/CREATININE RATIO SEE NOTE: 6-22 (calc) Not Reported: BUN and Creatinine are within reference range. SODIUM 137 135-146 mmol/L POTASSIUM 4.1 3.5-5.3 mmol/L CHLORIDE 100 98-110 mmol/L CARBON DIOXIDE 28 20-32 mmol/L CALCIUM 9.3 8.6-10.2 mg/dL PROTEIN, TOTAL 7.6 6.1-8.1 g/dL ALBUMIN 3.9 3.6-5.1 g/dL GLOBULIN 3.7 1.9-3.7 g/dL (calc) ALBUMIN/GLOBULIN RATIO 1.1 1.0-2.5 (calc) BILIRUBIN, TOTAL 0.3 0.2-1.2 mg/dL ALKALINE PHOSPHATASE 83 31-125 U/L AST 27 10-30 U/L ALT 26 6-29 U/L MAGNESIUM (622) Reviewed date:12/16/2024 12:47:58 PM Interpretation: Performing Lab:[facility], [facility] [employer] [facility] [employer] [id number] [employer], [id number] [place] Notes/Report: NON-FASTING; NON-FASTING; NON-FASTING MAGNESIUM 1.8 1.5-2.5 mg/dL CBC (INCLUDES DIFF/PLT) (639 9) Reviewed date:12/16/2024 12:47:58 PM Interpretation: Performing Lab:[facility], [facility] [id number] [employer], [id number] [place] Notes/Report: NON-FASTING; NON-FASTING; NON-FASTING WHITE BLOOD CELL COUNT 16.3 3.8-10.8 Thousand/ uL RED BLOOD CELL COUNT 3.85 3.80-5.10 Million/uL HEMOGLOBIN 12.3 11.7-15.5 g/dL HEMATOCRIT 40.1 35.0-45.0 % MCV 104.2 80.0-100.0 fL MCH 31.9 27.0-33.0 pg MCHC 30.7 32.0-36.0 g/dL For adults, a slight decrease in the calculated MCHC value (in the range of 30 to 32 g/dL) is most likely not clinically significant; however, it should be interpreted with caution in correlation with other red cell parameters and the patient's clinical condition. RDW 12.4 11.0-15.0 % PLATELET COUNT 500 140-400 Thousand/uL MPV 9.9 7.5-12.5 fL ABSOLUTE NEUTROPHILS 73448 [id number] cells/uL ABSOLUTE LYMPHOCYTES 2820 850-3900 cells/uL ABSOLUTE MONOCYTES 945 200-950 cells/uL ABSOLUTE EOSINOPHILS 375 15-500 cells/uL ABSOLUTE BASOPHILS 65 0-200 cells/uL NEUTROPHILS 74.2 LYMPHOCYTES 17.3 MONOCYTES 5.8 EOSINOPHILS 2.3 BASOPHILS 0.4 Reason For Referral Reason PT Diagnosis 1 Vertigo (R42) Referral Organization [facility] DAVIE WOODY Referring Provider First Name Jessy Referring Provider Last Name Delicia Referring Provider Speciality Family Pra amandaice Referred Organization [facility] Referred Address [address] [facility] [address], [place],[address],[place] Referred Provider Specialty Physical The keronist General Notes Ann Kohler 2024 11:06:57 AM >sent to [facility] to schedule Referral Priority Urgent REASON FOR VISIT Discharged from [facility] 12/10/24, saw ENT yesterday- does not think it is her inner ear-hr was elevated-sees Cardiology on December 23, still having some nausea, headache and dizziness Medications Medication SIG (Take, Route, Frequency, Duration) Notes Start Date End Date Status Atenolol 50 MG 1/2 tab Orally Once a day; Duration: 30 days 12/14/2024 Active Semaglutide(0.25 or 0.5MG/DOS) 2 MG/3ML as directed Subcutaneous 11/09/2024 Active Escitalopram Oxalate 20 mg TAKE ONE TABL ET BY MOUTH EVERY DAY; Duration: 30 Active Potassium Chloride ER 10 mEq TAKE ONE CAPSULE BY MOUTH EVERY DAY; Duration: 30 Active Advair HFA 115-21 MCG/ACT INHALE TWO PUF FS BY MOUTH TWICE DAILY - RINSE MOUTH AFTER USE-; Duration: 30 Active Ondansetron 4 MG 1 tab(s) orally ever y 6 hours; Duration: 7 days 07/06/2024 Active Levocetirizine Dihydrochloride 5 MG 1 tab(s) orally once a day (in the evening); Duration: 30 days Active buPROPion HCl ER (XL) 150 MG 1 tab(s) orally every 24 hours; Duration: 30 days Active Montelukast Sodium 10 mg TAKE ONE TABLET BY MOUTH EVERY DAY; Duration: 30 Active Vitamin D2 1.25 MG 1 CAP(S) ORALLY ONCE A WEEK; Duration: 86 DAYS Active Omeprazole 40 MG 1 cap(s) orally once a day; Duration: 30 days Active Mupirocin 2 % 1 jackie applied topica lly 3 times a day; Duration: 7 days 05/13/2024 Active Nyamyc 803360 UNIT/GM 1 jackie applied topi kailey 3 times a day; Duration: 14 days prn 01/06/2024 Active Fluticasone Propionate 50 MCG/ACT as directed in each nostril once a day; Duration: 30 day(s) Active Chlorhexidine Gluconate 4% 1 JACKIE APPLIED TOPICALLY ONCE; Duration: 1 DAY(S) prn 09/30/2018 Active NURTEC ODT 75 MG 1 TAB(S) ORALLY ONCE 12/31/2021 Active HUMIRA 40 MG/0.8 ML DIRECTED SUBCUTANEOUSLY EVERY WEEK Active Meclizine HCl 12.5 MG 1 tablet as needed Orally daily Active Social History Tobacco Use: Social History Observation Description Date Details (start date - stop date) Former Smoker NA - NA Smoking: Question Answer Notes Are you a: former smoker How long has it been since you last smoked? 1-5 years Vital Signs Temperature 97.6 degrees Fahrenheit 12/15/19 25 Heart Rate 104 /min 12/14/2024 Blood pressure systolic 108 mm Hg 12/15/19 25 Blood pressure diastolic 78 mm Hg 025 Height 5 ft 4 in in 12/14/2024 Weight 194 lbs 12/14/2024 BMI 33.3 kg/m2 12/14/2024 Encounters Encounter Location Date Provider Diagnosis [facility] PED [facility]IN[facility] [address] [place] [address] 12/14/2024 Jessy McNees Vertigo R42 ; Hypokalemia E87.6 and Tachycardia R00.0 Assessments Encounter Date Diagnosis (ICD Code) Assessment Notes Treatment Notes Treatment Clinical Notes Section Notes 12/14/2024 Vertigo (ICD-10 - R42) [facility] records reviewed ENT note reviewed CTA head/neck and CT head unremarkable. Echo 2022 unremarkable with EF 50-55% Discharge summary and medication list reviewed, restarted atenolol at 25mg po daily for tachycardia Hallpike manoeuvre grossly positive in office today. Reassurance. Discussed vertigo and that it is a time-limited condition. Explained vertigo exercises and advised to perform twice daily, once with eyes open and then again with eyes closed. Zofran PRN nausea. Meclizine PRN. Refer to PT. FU in 1-2 weeks. 12/14/2024 Hypokalemia (ICD-10 - E87.6) K 3.1, given oral KCL prior to discharge. Labs repeated today 12/14/2024 Tachycardia (ICD-10 - R00.0) Likely related to beta humberto withdraw. Restart atenolol at 25mg po daily. Labs drawn to r/o underlying causes. Keep appointment with cardiology but I feel symptoms are from benign positional vertigo, see plan above. RTC in 1-2 weeks. Plan Of Treatment Medication Medication Name Sig Start Date Stop Date Notes Atenolol 50 MG 1/2 tab Orally Once a day; Duration: 30 days 12/14/2024 Treatment Notes Assessment Notes Vertigo [facility] records reviewed ENT note reviewed CTA head/neck and CT head unremarkable. Echo 2022 unremarkable with EF 50-55% Discharge summary and medication list reviewed, restarted atenolol at 25mg po daily for tachycardia Hallpike manoeuvre grossly positive in office today. Reassurance. Discussed vertigo and that it is a time-limited condition. Explained vertigo exercises and advised to perform twice daily, once with eyes open and then again with eyes closed. Zofran PRN nausea. Meclizine PRN. Refer to PT. FU in 1-2 weeks. Hypokalemia K 3.1, given oral ADRIAN L prior to discharge. Labs repeated today Tachycardia Likely related to be ta humberto withdraw. Restart atenolol at 25mg po daily. Labs drawn to r/o underlying causes. Keep appointment with cardiology but I feel symptoms are from benign positional vertigo, see plan above. RTC in 1-2 weeks. Referrals Referral Date Details 12/14/2024 12/14/2024, PT, [address] [facility], [place], [address], Next Appt Details Follow Up: 2 Weeks,prn, Reas on: Provider Name:Owen Mars, 01/19/2025 02:00:00 PM, [address], [place], [address], Progress Notes * Napoleon BADILLO LDOB:[birth year] (44 yo F)Acc No.[id number]:12/14/2024 HOSP F/U Patient: Napoleon BARONE Provider: Ha Nesbitt APRN :1980 A ge:44 Y S ex:Female Date:12/14/2024 Address:[facility] [place] [id number] Pcp:Owen Mars Subjective: * Chief Complaints: * 1 . Discharged from [facility] 12/10/24. 2. saw ENT yesterday- does not think it is her inner ear-hr was elevated-sees Cardiology on December 23. 3. Still having some nausea, headache and dizziness. * HPI: g en: 44 y/o female presents for [facility] transitional care visit following admission for dizziness. Patient reports onset of dizziness a little over a week ago. Occurred with movements, especially turning to the right and associated with nausea. Became severe a few days later causing her to fall. Went to [facility] ED where she was admitted for work. CT head, CTA head/neck and labs unremarkable other than mild leukocytosis and hypokalemia. SBP low 100's most of stay, beta humberto and spironolactone stopped. PT was consulted for Berkley manoeuvre and was able to reproduce symptoms several times. Discharged with ENT FU. Seen [facility] ENT yesterday who did not feel it was related to vertigo. They were concerned with her mild tachycardia, HR 110 and referred pt to cardiology. D Id not perform Hallpike testing per patient and her . Today, continues to fell dizzy with turning to right and left, worse to the right side. Causes nausea. No syncopal events or LOC. Feels heart fluttering. No CP, SOA. No LE edema. Patient has had BPV a few times in the past, but not this severe. I ntrim History: Transition of care visit from hospital D ate of admission to hospital: 0 12/09/2024, D ate of receipt of hospital admission report: 0 12/10/2024,?Date of discharge from hospital: 0 12/11/2024, D ate of receipt of hospital discharge summary: 0 12/13/2024, D ischarge medications reviewed and reconciled from hospital: M edications changed (e.g. discontinued, changed or added). * ROS: A LLERGY: no R unny nose. R ESPIRATORY: no C hest congestion. n o C ough. C ARDIOLOGY: Dizziness y es. n o C hest pain. P alpitations?yes. n o L eg edema. n o S hortness of breath. C ONSTITUTIONAL: no L oss of appetite. n o F ever. G ASTROENTEROLOGY: Nausea y es. V omiting y es. n o D iarrhea.? N EUROLOGY: Headache y es. n o S eizures. D izziness yes. O PTHALMOLOGY: no D iminished vision. n o B lurring of vision.? * Medical History: A llergies, Asthma, Depression, Crohns disease - followed by Dr Sams in [place] - colonoscopy 09/10 with tubular adenomas, HTN, Hidradenitis supp., MRSA LT EAR. * Surgical History: c -section , T&A , septoplasty , colonoscopy , tubal ligation , Appendectomy 08/2018. * Hospitalization/Major Diagno stic Procedure: a cathryn , Crohns , Dizziness 11/2024. * Family History: F ather: alive, diagnosed with Hypertension, Heart Disease. M other: , diagnosed with Diabetes, Hypertension. P aternal Grand Father: . P aternal Grand Mother: . M aternal Grand Father: . M aternal Grand Mother: . S iblings: alive. C hildren: alive. 1 son(s) - healthy. . * Social History: S moking A re you a: f ormer smoker, H ow long has it been since you last smoked??1-5 years. R ecreational drug use: no. Exercise: no. Home smoke detector use: yes. Caffeine: yes, several sodas daily. Living Will: Yes. Alcohol: no. Sexually active: yes. Travel outside : no. Occupation: unemployed. * Medications: T aking Meclizine HCl 12.5 MG Tablet 1 tablet as needed Orally daily , Taking HUMIRA 40 MG/0.8 ML KIT DIRECTED SUBCUTANEOUSLY EVERY WEEK , Taking Chlorhexidine Gluconate 4% SOAP 1 JACKIE APPLIED TOPICALLY ONCE , Notes to Pharmacist: prn, Taking NURTEC ODT 75 MG TABLET, DISINTEGRATING 1 TAB(S) ORALLY ONCE , Taking Vitamin D2 1.25 MG CAPSULE 1 CAP(S) ORALLY ONCE A WEEK , Taking Omeprazole 40 MG Capsule Delayed Release 1 cap(s) orally once a day , Taking Nyamyc 966751 UNIT/GM Powder 1 jackie applied topically 3 times a day , Notes to Pharmacist: prn, Taking Fluticasone Propionate 50 MCG/ACT Suspension as directed in each nostril once a day , Taking Mupirocin 2 % Ointment 1 jackie applied topically 3 times a day , Taking Ondansetron 4 MG Tablet Disintegrating 1 tab(s) orally every 6 hours , Taking Levocetirizine Dihydrochloride 5 MG Tablet 1 tab(s) orally once a day (in the evening) , Taking buPROPion HCl ER (XL) 150 MG Tablet Extended Release 24 Hour 1 tab(s) orally every 24 hours , Taking Montelukast Sodium 10 mg Tablet TAKE ONE TABLET BY MOUTH EVERY DAY , Taking Escitalopram Oxalate 20 mg Tablet TAKE ONE TABLET BY MOUTH EVERY DAY , Taking Semaglutide(0.25 or 0.5MG/DOS) 2 MG/3ML Solution Pen-injector as directed Subcutaneous , Taking Potassium Chloride ER 10 mEq Capsule Extended Release TAKE ONE CAPSULE BY MOUTH EVERY DAY , Taking Advair HFA 115-21 MCG/ACT Aerosol INHALE TWO PUFFS BY MOUTH TWICE DAILY - RINSE MOUTH AFTER USE- , Discontinued Spironolactone 100 mg Tablet TAKE ONE TABLET BY MOUTH TWICE DAILY , Discontinued Atenolol 50 mg Tablet TAKE ONE TABLET BY MOUTH EVERY DAY , Discontinued Folic Acid 1 MG Tablet 1 tab(s) orally once a day , Discontinued Align 4 MG CAPSULE 1 CAP(S) ORALLY ONCE A DAY , Discontinued metFORMIN HCl 1000 MG Tablet 1 tab(s) orally 2 times a day , Discontinued Clindamycin HCl 300 MG Capsule 1 cap(s) orally 3 times a day , Medication List reviewed and reconciled with the patient * Allergies: P enicillin, Tetracycline: Allergy. Objective: * Vitals: N urse: jl, Pain: 0, Temp: 97.6, RR: 20, HR: 104, BP: 108/78, Ht: 5 ft 4 in, Wt: 194, BMI:33.3. * Examination: G eneral Examination: General P leasant and Cooperative, NAD on RA,. Chest: n ormal shape and expansion. Heart: R egular Rate and Rhythm, no murmur, rubs or gallops, mildly tachycardiac. Lungs: L CTAB, No wheezes, crackles or rhonchi, Good air movement,. Abdomen: S oft, NTND, BSNA, No organomegaly or peritoneal signs.. Neurologic Exam: H allpike manoeuvre positive, induced nystagmus and N/V normal sensation, strength, Moves All 4 Extremities Equally, Alert and oriented x 3 .? neck s upple,, no thyromegaly,, no lymphadenopathy,. Psych N ormal Mood/Affect. Assessment: * Assessment: 1. V ertigo - R42 (Primary) 2 . H ypokalemia - E87.6 3 .?Tachycardia - R00.0 Plan: * Treatment: Value Reference Range G LUCOSE 87 65-99 - mg/dL * U RONAK NITROGEN (BUN) 9 7-25 - mg/dL * C REATININE 0.87 0.50-0.99 - mg/dL * B UN/CREATININE RATIO SEE NOTE: 6 - (calc) * S ODIUM 137 135-146 - mmol/L * P OTASSIUM 4.1 3.5-5.3 - mmol/L * C HLORIDE 100 98-110 - mmol/L * C ARBON DIOXIDE 28 20-32 - mmol/L * C ALCIUM 9.3 8.6-10.2 - mg/dL * P ROTEIN, TOTAL 7.6 6.1-8.1 - g/dL * A LBUMIN 3.9 3.6-5.1 - g/dL * G LOBULIN 3.7 1.9-3.7 - g/dL (calc ) * A LBUMIN/GLOBULIN RATIO 1.1 1.0-2.5 - (calc) * B ILIRUBIN, TOTAL 0.3 0.2-1.2 - mg/dL * A LKALINE PHOSPHATASE 83 31-125 - U/L * A ST 27 10-30 - U/L * A LT 26 6-29 - U/L * E GFR 85 > OR = 60 - mL/min/1 .73m2 * Jessy Nesbitt 12/17/19 08:15:07 AM EDT > wbc count is high, likely related to recent steroids, recommend repeat cbc in 4-6 weeks, otherwiss potassium and remainder labs are normal, how is she feeling Maribeth Hill 12/16/2024 09:56:14 AM EDT > lm Maribeth Hill 12/16/2024 12:46:12 PM EDT > pt informed-states that she feels a bit better but not 100%, she is still having some dizziness.Jessy Nesbitt 12/16/2024 12:58:06 PM EDT > continue exercises as discussed in office, keep FU with PT, FU if dizziness persists in 2-3 weeksTonyaMaribeth meza 12/17/2024 09:31:59 AM EDT > lmLecheyenneMaribeth julio 12/17/2024 12:07:02 PM EDT > pt informedThis lab was reviewed by Maribeth Hill on 12/17/2024 at 12:07 PM EDT ?LAB: CBC (INCLUDES DIFF/PLT) (7259)* Value Reference Range W ALEJANDRA BLOOD CELL COUNT 16.3 H 3.8-10.8 - Thousan d/uL * R ED BLOOD CELL COUNT 3.85 3.80-5.10 - Million/ uL * H EMOGLOBIN 12.3 11.7-15.5 - g/dL * H EMATOCRIT 40.1 35.0-45.0 - % * M CV 104.2 H 80.0-100.0 - fL * M CH 31.9 27.0-33.0 - pg * M CHC 30.7 L 32.0-36.0 - g/dL * R DW 12.4 11.0-15.0 - % * P LATELET COUNT 500 H 140-400 - Thousand/u L * N EUTROPHILS 74.2 - % * A BSOLUTE NEUTROPHILS 19700 H 0548-3944 - cells/uL * L YMPHOCYTES 17.3 - % * A BSOLUTE LYMPHOCYTES 2820 850-3900 - cells/uL * M ONOCYTES 5.8 - % * A BSOLUTE MONOCYTES 945 200-950 - cells/uL * E OSINOPHILS 2.3 - % * A BSOLUTE EOSINOPHILS 375 15-500 - cells/uL * B ASOPHILS 0.4 - % * A BSOLUTE BASOPHILS 65 0-200 - cells/uL * M PV 9.9 7.5-12.5 - fL * Jessy Nesbitt 12/17/19 08:15:07 AM EDT > wbc count is high, likely related to recent steroids, recommend repeat cbc in 4-6 weeks, otherwiss potassium and remainder labs are normal, how is she feeling Maribeth Hill 12/16/2024 09:56:14 AM EDT > lm Maribeth Hill 12/16/2024 12:46:12 PM EDT > pt informed-states that she feels a bit better but not 100%, she is still having some dizziness.This lab was reviewed by Maribeth Hill on 12/16/2024 at 12:47 PM EDT Notes: [facility] records reviewed ENT note reviewed CTA head/neck and CT head unremarkable. Echo 2022 unremarkable with EF 50-55% Discharge summary and medication list reviewed, restarted atenolol at 25mg po daily for tachycardia Hallpike manoeuvre grossly positive in office today. Reassurance. Discussed vertigo and that it is a time-limited condition. Explained vertigo exercises and advised to perform twice daily, once with eyes open and then again with eyes closed. Zofran PRN nausea. Meclizine PRN. Refer to PT. FU in 1-2 w eeks.? Referral To: ?Reason:PT 2.?Hypokalemia?LAB: COMPREHENSIVE METABOLIC PANEL ([id number])* Value Reference Range G LUCOSE 87 65-99 - mg/dL * U RONAK NITROGEN (BUN) 9 7-25 - mg/dL * C REATININE 0.87 0.50-0.99 - mg/dL * B UN/CREATININE RATIO SEE NOTE: 11-07 - (calc) * S ODIUM 137 135-146 - mmol/L * P OTASSIUM 4.1 3.5-5.3 - mmol/L * C HLORIDE 100 98-110 - mmol/L * C ARBON DIOXIDE 28 20-32 - mmol/L * C ALCIUM 9.3 8.6-10.2 - mg/dL * P ROTEIN, TOTAL 7.6 6.1-8.1 - g/dL * A LBUMIN 3.9 3.6-5.1 - g/dL * G LOBULIN 3.7 1.9-3.7 - g/dL (calc ) * A LBUMIN/GLOBULIN RATIO 1.1 1.0-2.5 - (calc) * B ILIRUBIN, TOTAL 0.3 0.2-1.2 - mg/dL * A LKALINE PHOSPHATASE 83 31-125 - U/L * A ST 27 10-30 - U/L * A LT 26 6-29 - U/L * E GFR 85 > OR = 60 - mL/min/1 .73m2 * Jessy Nesbitt 12/17/19 08:15:07 AM EDT > wbc count is high, likely related to recent steroids, recommend repeat cbc in 4-6 weeks, otherwiss potassium and remainder labs are normal, how is she feeling Maribeth Hill 12/16/2024 09:56:14 AM EDT > lm Maribeth Hill 12/16/2024 12:46:12 PM EDT > pt informed-states that she feels a bit better but not 100%, she is still having some dizziness.Jessy Nesbitt 12/16/2024 12:58:06 PM EDT > continue exercises as discussed in office, keep FU with PT, FU if dizziness persists in 2-3 weeksSergio Maribeth M 12/17/2024 09:31:59 AM EDT > lmMaribeth Hill 12/17/2024 12:07:02 PM EDT > pt informedThis lab was reviewed by Maribeth Hill on 12/17/2024 at 12:07 PM EDT Notes: K 3.1, given oral KCL prior to discharge. Labs repeated today?? 3.?Tachycardia? Start Atenolol Tablet, 50 MG, 1/2 tab, Orally, Once a day, 30 days.?LAB: MAGNESIUM (622)* Value Reference Range M AGNESIUM 1.8 1.5-2.5 - mg/dL * Jessy Nesbitt 12/17/19 08:15:07 AM EDT > wbc count is high, likely related to recent steroids, recommend repeat cbc in 4-6 weeks, otherwiss potassium and remainder labs are normal, how is she feeling Maribeth Hill 12/16/2024 09:56:14 AM EDT > lm Maribeth Hill 12/16/2024 12:46:12 PM EDT > pt informed-states that she feels a bit better but not 100%, she is still having some dizziness.This lab was reviewed by Maribeth Hill on 12/16/2024 at 12:47 PM EDT Notes: Likely related to beta humberto withdraw. Restart atenolol at 25mg po daily. Labs drawn to r/o underlying causes. Keep appointment with cardiology but I feel symptoms are from benign positionalvertigo, see plan above. RTC in 1-2 weeks.?? * Procedure Codes: 9 9496 TRANS CARE MGMT 7 DAY DISCH * Follow Up: 2 Weeks,prn * * Sign off status: Completed true * Provider: Ha Nesbitt APRN Date: 0 12/14/2024 Generated for Torres bullock/Radha/Kolbyitting on: 0 12/31/2024 11:06 AM EDT History and Physical Notes * HPI (History of Present Illness) Category Sub-Category Detail Notes Category Not es [place] History Transition of care v isit from hospital Date of admission to hospital:: 12/09/2024 Date of receipt of hospital admission re port:: 12/10/2024 Date of discharge from hospital:: 2024 Date of receipt of hospital discharge [place] mmary:: 12/13/2024 Discharge medications review ed and reconciled from hospital:: Medications changed (e.g. discontinued, changed or added) gen 44 y/o female p resents for [facility] transitional care visit following admission for dizziness. Patient reports onset of dizziness a little over a week ago. Occurred with movements, especially turning to the right and associated with nausea. Became severe a few days later causing her to fall. Went to [facility] ED where she was admitted for work. CT head, CTA head/neck and labs unremarkable other than mild leukocytosis and hypokalemia. SBP low 100's most of stay, beta humberto and spironolactone stopped. PT was consulted for Berkley manoeuvre and was able to reproduce symptoms several times. Discharged with ENT FU. Seen [facility] ENT yesterday who did not feel it was related to vertigo. They were concerned with her mild tachycardia, HR 110 and referred pt to cardiology. DId not perform Hallpike testing per patient and her . Today, continues to fell dizzy with turning to right and left, worse to the right side. Causes nausea. No syncopal events or LOC. Feels heart fluttering. No CP, SOA. No LE edema. Patient has had BPV a few times in the past, but not this severe Examination Category Sub-Category Detail Notes Category Not es General Examination Heart: Regular Rate and Rhythm, no murmur, rubs or gallops, mildly tachycardiac Lungs: LCTAB, No wheezes, c rackles or rhonchi, Good air movement, Abdomen: Soft, NTND, BSNA, No organomegaly or peritoneal signs. Neurologic Exam: Hallpike manoeuvre p ositive, induced nystagmus and N/V normal sensation, strength, Moves All 4 Extremities Equally, Alert and oriented x 3 Chest: normal shape and exp ansion neck supple,, no thyromeg svitlana,, no lymphadenopathy, General Pleasant and Coopera tive, NAD on RA, Psych Normal Mood/Affect Consultation Request Notes Referral Date Referring Provider Referred Provider Not es 12/14/2024 Jessy Nesbitt , PT
--- OUTSIDE RECORDS SUMMARY | 2024-12-14 07:04 | XMS_ITS ---
Author Organization Priya [facility] [place] Address [address] [facility] [address] [place] [address] Care Team Providers Care Acds Block 1 Operator Name Role Phone Madisyn Owen Primary Care Provider Deja Carmichael Unavailable [phone] Jessy Nesbitt Unavailable [phone] Encounters Encounter Location Date Provider Diagnosis [facility]ya [facility] [place] [address] [place] [address] [facility] [address] [place] [address] 12/14/2024 Jessy Nesbitt Vertigo R42 Assessments Encounter Date Diagnosis (ICD Code) Assessment Notes Treatment Notes Treatment Clinical Notes Section Notes 12/14/2024 Vertigo (ICD-10 - R42) Plan Of Treatment Pending Test Test Name Order Date Physical Therapy : Vertigo 12/14/2024 Next Appt Details Provider Name:Owen Mars, 01/19/2025 02:00:00 PM, [address] [facility], [address], [place], [place], [address], Progress Notes * Napoleon GUO LDOB:[birth year] (44 yo F)Acc No.[id number]:12/14/2024 Patient: Napoleon BARONE :1980 A ge:44 Y S ex:Female Address:[address] [place] [address] Subjective: * Chief Complaints: * * Medical History: * Surgical History: * Hospitalization/Major Diagno stic Procedure: * Medications: Objective: * Vitals: * Physical Examination: Assessment: * Assessment: 1. V ertigo - R42 Plan: * Treatment: * Procedure Codes: * true * Date: Generated for Torres Fraire/Maxim on: 0 12/31/2024 11:06 AM EDT
--- OUTSIDE RECORDS SUMMARY | 2024-12-22 08:00 | XMS_ITS ---
Author Organization [facility] Address [address] [place] [address] Care Team Providers Care Executive Asst Name Role Phone Owen Mars Primary Care Provider [phone] J[address] [place] [phone] Allergies Allergen (clinical drug ingredient) Drug/Non Drug Allergy documented on EMR Reaction Allergy Type Onset Date Status Penicillin Unknown Drug Allergy Active tetracycline Tetracycline Unknown Drug Allergy A ctive Results Component Value Reference Range Notes CBC (INCLUDES DIFF/PLT) (579 9) Reviewed date:12/23/2024 07:28:57 PM Interpretation: Performing Lab:[place], [facility] [address] [facility], [id number] [place] Notes/Report: NON-FASTING; NON-FASTING WHITE BLOOD CELL COUNT 16.9 3.8-10.8 Thousand/ uL RED BLOOD CELL COUNT 3.75 3.80-5.10 Million/uL HEMOGLOBIN 11.9 11.7-15.5 g/dL HEMATOCRIT 38.1 35.0-45.0 % MCV 101.6 80.0-100.0 fL MCH 31.7 27.0-33.0 pg MCHC 31.2 32.0-36.0 g/dL For adults, a slight decrease in the calculated MCHC value (in the range of 30 to 32 g/dL) is most likely not clinically significant; however, it should be interpreted with caution in correlation with other red cell parameters and the patient's clinical condition. RDW 12.1 11.0-15.0 % PLATELET COUNT 515 140-400 Thousand/uL MPV 9.8 7.5-12.5 fL ABSOLUTE NEUTROPHILS 72103 0778-0472 cells/uL ABSOLUTE LYMPHOCYTES 2163 850-3900 cells/uL ABSOLUTE MONOCYTES 1031 200-950 cells/uL ABSOLUTE EOSINOPHILS 473 15-500 cells/uL ABSOLUTE BASOPHILS 51 0-200 cells/uL NEUTROPHILS 78 LYMPHOCYTES 12.8 MONOCYTES 6.1 EOSINOPHILS 2.8 BASOPHILS 0.3 VITAMIN B12 (927) Reviewed date:12/23/2024 07:28:57 PM Interpretation: Performing Lab:[facility], [facility], [facility] Center[facility]ME[address] [place] Notes/Report: NON-FASTING; NON-FASTING VITAMIN B12 268 777-4097 pg/mL REASON FOR VISIT 6 week f/u, wellness update, was seeing Jessy for dizziness that is better but she is not 100% Medications Medication SIG (Take, Route, Frequency, Duration) Notes Start Date End Date Status Omeprazole 40 MG 1 cap(s) orally once a day; Duration: 30 days Active Vitamin D2 1.25 MG 1 CAP(S) ORALLY ONCE A WEEK; Duration: 86 DAYS Active NURTEC ODT 75 MG 1 TAB(S) ORALLY ONCE 12/31/2021 Active Chlorhexidine Gluconate 4% 1 JACKIE APPLIED TOPICALLY ONCE; Duration: 1 DAY(S) prn 09/30/2018 Active HUMIRA 40 MG/0.8 ML DIRECTED SUBCUTANEOUSLY EVERY WEEK Active Semaglutide(0.25 or 0.5MG/DOS) 2 MG/3ML 0.5mg Subcutaneous weekly; Duration: 30 days 11/09/2024 Active Atenolol 50 MG 1/2 tab Orally Once a day; Duration: 30 days 12/14/2024 Active Meclizine HCl 12.5 MG 1 tablet as needed Orally daily Active Advair HFA 115-21 MCG/ACT INHALE TWO PUF FS BY MOUTH TWICE DAILY - RINSE MOUTH AFTER USE-; Duration: 30 Active Potassium Chloride ER 10 mEq TAKE ONE CAPSULE BY MOUTH EVERY DAY; Duration: 30 Active Escitalopram Oxalate 20 mg TAKE ONE TABL ET BY MOUTH EVERY DAY; Duration: 30 Active Montelukast Sodium 10 mg TAKE ONE TABLET BY MOUTH EVERY DAY; Duration: 30 Active buPROPion HCl ER (XL) 150 MG 1 tab(s) orally every 24 hours; Duration: 30 days Active Levocetirizine Dihydrochloride 5 MG 1 tab(s) orally once a day (in the evening); Duration: 30 days Active Ondansetron 4 MG 1 tab(s) orally ever y 6 hours; Duration: 7 days 07/06/2024 Active Mupirocin 2 % 1 jackie applied topica lly 3 times a day; Duration: 7 days 05/13/2024 Active Fluticasone Propionate 50 MCG/ACT as directed in each nostril once a day; Duration: 30 day(s) Active Nyamyc 133336 UNIT/GM 1 jackie applied topi kailey 3 times a day; Duration: 14 days prn 01/06/2024 Active Social History Tobacco Use: Social History Observation Description Date Details (start date - stop date) Former Smoker NA - NA Smoking: Question Answer Notes Are you a: former smoker How long has it been since you last smoked? 1-5 years Vital Signs Temperature 97.8 degrees Fahrenheit 12/23/19 25 Heart Rate 96 /min 12/22/2024 Blood pressure systolic 106 mm Hg 12/23/19 25 Blood pressure diastolic 76 mm Hg 025 Height 5 ft 4 in in 12/22/2024 Weight 192.8 lbs 12/22/2024 BMI 33.09 kg/m2 12/22/2024 j Encounters Encounter Location Date Provider Diagnosis [facility] [place] [address] [place] [address] 12/22/2024 Owen Mars Vitamin B 12 deficiency E53.8 ; PCOS (polycystic ovarian syndrome) E28.2 ; BMI 36.0-36.9,adult Z68.36 and Hidradenitis suppurativa L73.2 Assessments Encounter Date Diagnosis (ICD Code) Assessment Notes Treatment Notes Treatment Clinical Notes Section Notes 12/22/2024 Vitamin B 12 deficiency (ICD-10 - E53.8) Previous labs did not include B12 levels. 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 I will order CBC and B12. Will consider restarting B12 shots due to pts crohns disease. 12/22/2024 PCOS (polycystic ovarian syndrome) (ICD-10 - E28.2) well managed with medications. Counseled patient on benefits of exercise 12/22/2024 BMI 36.0-36.9,adult (ICD-10 - Z68.36) weight loss of 2lbs since last visit. Pt to continue semaglutide 12/22/2024 Hidradenitis suppurativa (ICD-10 - L73.2) Pt will continue semaglutide for weight management and improvement for symptoms of HS. She will also continue hibaclens and mupirocin ointment to reduce risk of infection. Plan Of Treatment Medication Medication Name Sig Start Date Stop Date Notes Semaglutide(0.25 or 0.5MG/DOS) 2 MG/3ML 0.5mg Subcutaneous weekly; Duration: 30 days 11/09/2024 Treatment Notes Assessment Notes Vitamin B 12 deficiency Previous labs di d not include B12 levels. 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 I will order CBC and B12. Will consider restarting B12 shots due to pts crohns disease. PCOS (polycystic ovarian syndrome) well managed with medications. Counseled patient on benefits of exercise BMI 36.0-36.9,adult weight loss of 2lbs since last visit. Pt to continue semaglutide Hidradenitis suppurativa Pt will continu e semaglutide for weight management and improvement for symptoms of HS. She will also continue hibaclens and mupirocin ointment to reduce risk of infection. Next Appt Details Follow Up: 4 Weeks, Reason: Provider Name:Owen Mars, 01/19/2025 02:00:00 PM, [address] [place] [facility] [address], [address], [place], [address], Progress Notes * Napoleon GUO LDOB:[birth year] (44 yo F)Acc No.[id number]:12/22/2024 Progress Notes Patient: Napoleon BARONE Provider: Yudy Mars MD :1980 A ge:44 Y S ex:Female Date:12/22/2024 Address:[address] [place] [address] [place], [id number] Subjective: * Chief Complaints: * 1 . 6 week f/u. 2. Wellness update. 3. was seeing Jessy for dizziness that is better but she is not 100%. * HPI: g en: Mrs. Bender presents to [facility] for a follow up appt. She states she does not feel herself on semaglutide. She would like to know if the appetite suppression eventually levels out. She is content with the weight loss she has experienced with this treatment. Her energy levels are low and would like to get her B12 checked today. Her HS has not improved much, her main concern is the pain. * Medical History: A llergies, Asthma, Depression, Crohns disease - followed by Dr Sams in [place] - colonoscopy 09/10 with tubular adenomas, HTN, [...] . M aternal Grand Mother: . S ibyenni: alive. C troy: alive. 1 son(s) - healthy. . * Social History: S moking A re you a: f ormer smoker, H ow long has it been since you last smoked??1-5 years. R ecreational drug use: no. Exercise: no. Home smoke detector use: yes. Caffeine: yes, several sodas daily. Living Will: Yes. Alcohol: no. Sexually active: yes. Travel outside [place]: no. Occupation: unemployed. * Medications: T aking [...] orally once a day , Taking Nyamyc 847978 UNIT/GM Powder 1 jackie applied topically 3 [...] DAILY - RINSE MOUTH AFTER USE- , Taking Atenolol 50 MG Tablet 1/2 tab Orally Once a day , Medication List reviewed and reconciled with the patient * Allergies: P enicillin, Tetracycline: Allergy. Objective: * Vitals: N urse: jl, Pain: 0, Temp: 97.8, RR: 20, HR: 96, BP: 106/76, Ht: 5 ft 4 in, Wt: 192.8, BMI:33.09. j. * Examination: G eneral Examination: General P leasant and Cooperative, NAD on RA,. Heart: R egular Rate and Rhythm, no murmur, rubs or gallops. Lungs: L CTAB, No wheezes, crackles or rhonchi, Good air movement,. Assessment: * Assessment: 1. V itamin B 12 deficiency - E53.8 (Primary) 2 . P COS (polycystic ovarian syndrome) - E28.2 3 . B GA 36.0-36.9,adult - Z68.36 4 . H idradenitis suppurativa - L73.2 Plan: * Treatment: Value Reference Range W ALEJANDRA BLOOD CELL COUNT 16.9 H 3.8-10.8 - Thousan d/uL * R ED BLOOD CELL COUNT 3.75 L 3.80-5.10 - Million/ uL * H EMOGLOBIN 11.9 11.7-15.5 - g/dL * H EMATOCRIT 38.1 35.0-45.0 - % * M CV 101.6 H 80.0-100.0 - fL * M CH 31.7 27.0-33.0 - pg * M CHC 31.2 L 32.0-36.0 - g/dL * R DW 12.1 11.0-15.0 - % * P LATELET COUNT 515 H 140-400 - Thousand/u L * N EUTROPHILS 78 - % * A BSOLUTE NEUTROPHILS 35863 H 4788-5174 - cells/uL * L YMPHOCYTES 12.8 - % * A BSOLUTE LYMPHOCYTES 2163 850-3900 - cells/uL * M ONOCYTES 6.1 - % * A BSOLUTE MONOCYTES 1031 H 200-950 - cells/uL * E OSINOPHILS 2.8 - % * A BSOLUTE EOSINOPHILS 473 15-500 - cells/uL * B ASOPHILS 0.3 - % * A BSOLUTE BASOPHILS 51 0-200 - cells/uL * M PV 9.8 7.5-12.5 - fL * This lab was reviewed by Hector Mars on 12/23/2024 at 19:28 PM EDT ?LAB: VITAMIN B12 (927)* Value Reference Range V ITAMIN B12 195 552-5380 - pg/mL * This lab was reviewed by Hector Mars on 12/23/2024 at 19:28 PM EDT Notes: Previous labs did not include B12 levels. 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 I will order CBC and B12. Will consider restarting B12 shots due to pts crohns disease.??2.?PCOS (polycystic ovarian syndrome)? Notes: well managed with medications. Counseled patient on benefits of exercise ??3.?BMI 36.0-36.9,adult? Refill Semaglutide(0.25 or 0.5MG/DOS) Solution Pen-injector, 2 MG/3ML, 0.5mg, Subcutaneous, weekly,30 days, 4, Refills 3.?? Notes: weight loss of 2lbs since last visit. Pt to continue semaglutide?? 4.?Hidradenitis suppurativa? Notes: Pt will continue semaglutide for weight management and improvement for symptoms of HS. She will also continue hibaclens and mupirocin ointment to reduce risk of infection. ?? * Follow Up: 4 Weeks * * Sign off status: Completed true * Provider: Yudy Mars MD Date: 12/22/2024 Generated for Torres bullock/Radha/Chandlersmitting on: 12/31/2024 11:07 AM EDT History and Physical Notes * HPI (History of Present Illness) Category Sub-Category Detail Notes Category Not es gen Mrs. Bender presents to day for a follow up appt. She states she does not feel herself on semaglutide. She would like to know if the appetite suppression eventually levels out. She is content with the weight loss she has experienced with this treatment. Her energy levels are low and would like to get her B12 checked today. Her HS has not improved much, her main concern is the pain. Examination Category Sub-Category Detail Notes Category Not es General Examination Heart: Regular Rate and Rhythm, no murmur, rubs or gallops Lungs: LCTAB, No wheezes, c rackles or rhonchi, Good air movement, General Pleasant and Coopera timejia NAD on RA,
[2024-12-31 11:02] VITALS: BP 131/80; PULSE 84; RESP 17; TEMP 36.6; O2SAT 99; BMI 32.5
--- OUTSIDE RECORDS SUMMARY | 2024-12-31 11:07 | XMS_ITS | Encounter Summary ---
Author Organization Healthcare Address [address] [place] [address] Care Team Providers Care Certified Adapted Physical Educator Name Role Phone Owen Mars MD Primary Care Provider Encounter Details Date Type Department Care Team (Late st Contact Info) Description 12/09/2024 Orders Only External Location [address] [place] [address] Provider, External Social History Tobacco Use Types Packs/Day Years [...] on file documented as of this encounter Procedures Procedure Name Priority Date/Time Associated Diagnosis Comments CT NEURO OUTSIDE IMAGES 12/09/2024 2:23 PM EDT documented in this encounter Results * CT NEURO OUTSIDE IMAGES (12/09/2024 2:23 PM EDT) Anatomical Region Laterality Modality Computed Tomogra phy 12/09/2024 2:23 PM EDT External Provider IMG CT PROCEDURES Final Result documented in this encounter Visit Diagnoses Not on filedocumented in this encounter Additional Health Concerns Assessment Noted Time A fall risk assessment has been complete d for the patient 07/02/2023 11:41 AM EST A Body Mass Index follow-up plan has been documented for the patient 07/02/2023 12:43 PM EST documented as of this encounter Care Teams Certified Adapted Physical Educator Relationship Specialty Start Date End Date Owen Mars MD [address] [place] [address] [place] [address] PCP - General Internal Medicine 04/25/22 documented as of this encounter
--- OUTSIDE RECORDS SUMMARY | 2024-12-31 11:07 | XMS_ITS | Clinical Summary ---
Author Organization [facility] Address [address] [place] [address] Care Team Providers Care Dietary Internship Name Role Phone Owen Mars MD Primary Care Provider [phone] Allergies Active Allergy Reactions Criticality Noted Date [...] day. Active ergocalciferol (Vitamin D-2) 1.25 MG (18504 UT) capsule Take 1 capsule (50,000 Units) [...] tablet for 5 days. 30 tablet 07/02/19 Active clindamycin (Clindagel) 1 % gelIndications:Hid radenitis suppurativa Apply 1 Application topically 2 (two) times a day. 60 g 3 07/02/19 Active Active Problems Problem Noted Date Diagnosed Date Hidradenitis suppurativa 06/14/2022 Overview (06/14/2022): Added automatically from request for surgery [id number] Encounters Date Type Department Care Team Description 12/09/2024 Orders Only External Location [address] [place] [address] Provider, External 12/09/2024 Orders Only External Location [address] [place] [address] Provider, External 12/09/2024 Orders Only External Location [address] [place] [address] Provider, External 11/02/2024 Community Orders Community Practice [address] [place] [address] Owen Mars MD Hidradenitis suppurativa (Primary Dx) [...] of 2 - 13+ 2-dose series) 1995 [facility]-DTaP,Tdap,and Td Vaccines (2 - Tdap) 06/29/1997 06/28/1997 [facility]- SDOH Screenings 2000 [facility]-Adult SDOH Screenings 2000 [facility]-Zoster Vaccines (1 of 2) 2001 [facility]-Pap Smear 2003 HPV Vaccines (1 - 3-dose SCDM series) 2009 [facility]-Cervical Cancer Screening 2012 [facility]-HPV/Cotest 2012 [id number] Vaccine (3 - Moderna risk series) 09/27/2020 [...] NEURO OUTSIDE IMAGES 12/09/2024 2:[address] NEURO OUTSIDE IMAGES 12/09/2024 2:[address] OUTSIDE IMAGES 12/09/2024 2:2 1 PM EDT ACUTE HEPATITIS PANEL Routine 07/02/2023 1:40 PM EST Hidradenitis suppurativa Crohn's disease of colon with complication (CMS/HCC) Polyarthralgia from Last 3 Months or Most Recently Relevant to Health Maintenance Results * CT NEURO OUTSIDE IMAGES (12/09/2024 2:23 PM EDT) Only the most recent of2 resultswithin the time period is included. Anatomical Region Laterality Modality Computed Tomogra phy 12/09/2024 2:23 PM EDT us External Provider IMG CT PROCEDURES Final Result * CT OUTSIDE IMAGES (12/09/2024 2:21 PM EDT) Anatomical Region Laterality Modality Computed Tomogra phy 12/09/2024 2:21 PM EDT us External Provider IMG CT PROCEDURES Final Result * Acute Hepatitis Panel (07/02/2023 1:40 PM EST) Hepatitis B Surf Antigen Negative Negative 07/02/2023 3:34 PM EST [facility] Hepatitis C Antibody Negative Negative 07/02/2023 3:34 PM EST [facility] Hepatitis A Antibody IgM Negative Negative 07/02/2023 3:34 PM EST [facility] Hepatitis B Core Antibody IgM Negative Negative 07/02/2023 3:34 PM EST [facility] Blood Venous blood specimen / Unknown Venipuncture / Unknown 07/02/2023 1:40 PM EST 07/02/2023 1:40 PM EST [facility] [employer] [facility] BLOOD ORDERABLES Final Result [facility] [address] [place] [address] from Last 3 Months or Most Recently Relevant to Health Maintenance Insurance [place] [id number] [employer] [facility] MEDICAID Care Teams Dietary Internship Relationship Specialty Start Date End Date Owen Mars MD [address] [place] [address] PCP - General Internal Medicine 04/25/22
--- OUTSIDE RECORDS SUMMARY | 2024-12-31 11:07 | XMS_ITS | Patient Health Record ---
Author Organization [facility] Address [address] [place] [address] Care Team Providers Care Fruit Sprayer Name Role Phone Owen Mars Primary Care Provider Deja Carmichael Unavailable [phone] Jessy Nesbitt Unavailable [phone] Migration, Provider Unavailable Unavailable Allergies Allergen (clinical drug ingredient) Drug/Non Drug Allergy documented on EMR Reaction Allergy Type Onset Date Status Penicillin Unknown Drug Allergy Active tetracycline Tetracycline Unknown Drug Allergy A ctive Results Component Value Reference Range Notes COMPREHENSIVE METABOLIC ADRIEL Cheng (69834) Reviewed date:12/17/2024 12:07:15 PM Interpretation: Performing Lab:AKIKO, [facility] [id number] [facility], [facility] HospitalQnzhPY[address] [place] Notes/Report: NON-FASTING; NON-FASTING; NON-FASTING GLUCOSE [...] Reviewed date:12/16/2024 12:47:58 PM Interpretation: Performing Lab:AKIKO, [employer] [id number] [employer], [place] CommunicationRjneMH[address] [place] Notes/Report: NON-FASTING; NON-FASTING; NON-FASTING MAGNESIUM 1.8 1.5-2.5 mg/dL CBC (INCLUDES DIFF/PLT) (119 9) Reviewed date:12/16/2024 12:47:58 PM Interpretation: Performing Lab:AKIKO, [employer] [id number] [employer], [place] CommunicationKhgnGH[address] [place] Notes/Report: NON-FASTING; NON-FASTING; NON-FASTING WHITE [...] Thousand/uL MPV 9.9 7.5-12.5 fL ABSOLUTE NEUTROPHILS 79252 0193-8110 cells/uL ABSOLUTE LYMPHOCYTES 2820 850-3900 cells/uL ABSOLUTE MONOCYTES 945 200-950 cells/uL ABSOLUTE EOSINOPHILS 375 15-500 cells/uL ABSOLUTE BASOPHILS 65 0-200 cells/uL NEUTROPHILS 74.2 LYMPHOCYTES 17.3 MONOCYTES 5.8 EOSINOPHILS 2.3 BASOPHILS 0.4 CBC (INCLUDES DIFF/PLT) (969 9) Reviewed date:12/23/2024 07:28:57 PM Interpretation: Performing Lab:AKIKO [employer] [id number] [place] [facility] HospitalUqalMI[address] [place] Notes/Report: NON-FASTING; NON-FASTING WHITE BLOOD [...] Thousand/uL MPV 9.8 7.5-12.5 fL ABSOLUTE NEUTROPHILS 80506 4020-9227 cells/uL ABSOLUTE LYMPHOCYTES 2163 850-3900 cells/uL ABSOLUTE MONOCYTES 1031 200-950 cells/uL ABSOLUTE EOSINOPHILS 473 15-500 cells/uL ABSOLUTE BASOPHILS 51 0-200 cells/uL NEUTROPHILS 78 LYMPHOCYTES 12.8 MONOCYTES 6.1 EOSINOPHILS 2.8 BASOPHILS 0.3 VITAMIN B12 (927) Reviewed date:12/23/2024 07:28:57 PM Interpretation: Performing Lab:AKIKO [employer] [id number] [facility] HospitalMskaEM[address] [place] Notes/Report: NON-FASTING; NON-FASTING VITAMIN B12 420 473-6004 pg/mL X ray : KUB Reviewed date:07/09/2024 09:40:59 AM Interpretation: Performing Lab: Notes/Report: Mammogram : Bilateral Reviewed date:07/15/2024 02:31:17 PM Interpretation: Performing Lab: Notes/Report: Medications Medication SIG (Take, Route, Frequency, Duration) Notes Start Date End Date Status Escitalopram Oxalate 20 mg TAKE ONE TABL ET BY MOUTH EVERY DAY; Duration: 30 Active Montelukast Sodium 10 mg TAKE ONE TABLET BY MOUTH EVERY DAY; Duration: 30 Active Semaglutide(0.25 or 0.5MG/DOS) 2 MG/3ML 0.5mg Subcutaneous weekly; Duration: 30 days 11/09/2024 Active buPROPion HCl ER (XL) 150 MG 1 tab(s) orally every 24 hours; Duration: 30 days Active Levocetirizine Dihydrochloride 5 MG 1 tab(s) orally once a day (in the evening); Duration: 30 days Active Ondansetron 4 MG 1 tab(s) orally ever y 6 hours; Duration: 7 days 07/06/2024 Active Mupirocin 2 % 1 alden applied topica lly 3 times a day; Duration: 7 days 05/13/2024 Active Fluticasone Propionate 50 MCG/ACT as directed in each nostril once a day; Duration: 30 day(s) Active Nyamyc 720378 UNIT/GM 1 alden applied topi kailey 3 times a day; Duration: 14 days prn 01/06/2024 Active Omeprazole 40 MG 1 cap(s) orally once a day; Duration: 30 days Active Vitamin D2 1.25 MG 1 CAP(S) ORALLY ONCE A WEEK; Duration: 86 DAYS Active NURTEC ODT 75 MG 1 TAB(S) ORALLY ONCE 12/31/2021 Active Chlorhexidine Gluconate 4% 1 ALDEN APPLIED TOPICALLY ONCE; Duration: 1 DAY(S) prn 09/30/2018 Active HUMIRA 40 MG/0.8 ML DIRECTED SUBCUTANEOUSLY EVERY WEEK Active Meclizine HCl 12.5 MG 1 tablet as needed Orally daily Active Atenolol 50 MG 1/2 tab Orally Once a day; Duration: 30 days 12/14/2024 Active Advair HFA 115-21 MCG/ACT INHALE TWO [...] Status W/U Status Risk Notes Problem Hypokalemia (81497035) Hypokalemia (E87.6) Active confirmed Problem Gangrene (972670717) Gangrene, not elsewhere classified (I96) Active confirmed Problem Deviated nasal septum (404959592) Deviated nasal septum (J34.2) Active confirmed Problem Hidradenitis suppurativa (50427862) Hidradenitis suppurativa (L73.2) Active confirmed Problem Dysuria (45015353) Dysuria (R30.0) Active confi rmed Problem Tobacco use (746124794) Tobacco use (Z72.0) Active confirmed Problem Allergy to penicillin (98922261) Allergy status to penicillin (Z88.0) Active confirmed Problem History of excision of intestinal structure (103019466) Acquired absence of other specified parts of digestive tract (Z90.49) Active confirmed Problem Vitamin B12 deficiency (625557029) Vitamin B12 deficiency (E53.8) Active confirmed Problem Anxiety disorder (373059949) Anxiety disorder (F41.9) Active confirmed Problem Mixed anxiety and depressive disorder (314178539) Depression with anxiety (F41.8) Active confirmed Problem Essential hypertension (05317787) HTN (hypertension), benign (I10) Active confirmed Problem Gastroesophageal reflux disease (746540347) GERD without esophagitis (K21.9) Active confirmed Problem Essential hypertension (87429219) Hypertension, essential (I10) Active confirmed Problem Asthma (385253774) Asthma (J45.909) Active confirmed Problem Crohn's disease (58682425) Crohn's disease (K50.90) Active confirmed Problem Allergic rhinitis (40011912) Chronic allergic rhinitis (J30.9) Active confirmed Problem Body mass index 30.00 to 34.99 (270435710586999) BMI 34.0-34.9,adult (Z68.34) Active confirmed Problem Back pain (585487720) Back pain (M54.9) Active confirmed Problem Palpitations (69387071) Palpitation (R00.2) Active confirmed Problem Gastroesophageal reflux disease with esophagitis (disorder) (373033270) GERD with esophagitis (K21.0) Active confirmed Problem Cigarette smoker (92111045) Cigarette smoker (F17.210) Active confirmed Problem Polycystic ovary syndrome (disorder) (742857846) PCOS (polycystic ovarian syndrome) (E28.2) Active confirmed Problem Chronic serous otitis media (17749412) Bilateral chronic serous otitis media (H65.23) Active confirmed Problem Obese class II (557675680891889) BMI 36.0-36.9,adult (Z68.36) Active confirmed Problem Uncomplicated moderate persistent asthma (269249589) Moderate persistent asthma without complication (J45.40) Active confirmed Problem Restless legs (67279376) Restless leg (G25.81) Active confirmed Problem Obese class II (053663052893352) BMI 35.0-35.9,adult (Z68.35) Active confirmed Problem Refractory migraine without aura (360981938) Intractable migraine without aura and with status migrainosus (G43.011) Active confirmed Problem Tobacco use (032604959) Tobacco use disorder (F17.200) Active confirmed Problem Otitis externa of left ear (0098901866857283) Recurrent otitis externa of left ear (H60.92) Active confirmed Problem Seasonal allergic rhinitis (047441708) Seasonal allergic rhinitis, unspecified trigger (J30.2) Active confirmed Problem Crohn's disease of small AND large intestines (60111528) Crohn''s disease of both small and large intestine with rectal bleeding (K50.811) Active confirmed Problem Methicillin resistant Staphylococcus aureus infection (437497137) MRSA infection (A49.02) Active confirmed Problem Chronic purulent otitis media (85873242) Chronic purulent otitis media of left ear (H66.3X2) Active confirmed Problem Allergy status to other antibiotic agents (Z88.1) Active confirmed Problem Abnormal taste in mouth (911417723) Abnormal taste in mouth (R43.2) Active confirmed Vital Signs Heart Rate 96 /min 12/22/2024 j Temperature 97.8 degrees Fahrenheit 12/22/2024 j Blood pressure diastolic 76 mm Hg 12/22/2024 j Height 5 ft 4 in in 12/22/2024 j Blood pressure systolic 106 mm Hg 12/22/2024 j Weight 192.8 lbs 12/22/2024 j BMI 33.09 kg/m2 12/22/2024 j Encounters Encounter Location Date Provider Diagnosis [facility] [address] [place] [address] 08/21/2024 Provider Migration Recurrent acute serous otitis media of both ears H65.06 and Nausea and vomiting in adult R11.2 [facility] [address] [place] [address] 01/06/2024 Jessy McNees Recurrent otitis externa of left ear H60.92 ; Bilateral chronic serous otitis media H65.23 ; BMI 35.0-35.9,adult Z68.35 and Yeast dermatitis B37.2 [facility] [address] [place] [address] 02/17/2024 Jessy McNees Immunization(s) administered Z23 ; Weight loss counseling, encounter for Z71.3 and Obesity, Class II, BMI 35-39.9 E66.812 [facility] [address] [place] [address] 04/08/2024 Jessy McNees Viral URI J06.9 and BMI 34.0-34.9,adult Z68.34 [facility] [address] [place] [address] 04/27/2024 Jessy McNees Left chronic otitis media H66.92 ; MRSA infection A49.02 and Abscess of face L02.01 [facility] [address] [address] 05/13/2024 Owen Besson Cellulitis, face L03.211 [facility] [address] [address] 05/20/2024 Owen Besson Cellulitis, face L03.211 [facility] [address] [place] [address] 07/06/2024 Jessy McNees Nausea and vomiting in adult R11.2 ; Crohn''s disease of both small and large intestine with rectal bleeding K50.811 and Visit for screening mammogram Z12.31 [facility] [address] [address] 11/02/2024 Owen Mars Insect bite (nonvenomous) of abdominal wall, initial encounter S30.861A and Hidradenitis suppurativa L73.2 [facility] [address] [address] 11/09/2024 Owen Mars PCOS (polycystic ovarian syndrome) E28.2 and BMI 35.0-35.9,adult Z68.35 [facility] [address] [facility] [address] [place] [address] 12/14/2024 Jessy McNees Vertigo R42 ; Hypokalemia E87.6 and Tachycardia R00.0 [facility] [address] [facility] [address] [place] [address] 12/22/2024 Owen Mars Vitamin B 12 deficiency E53.8 ; PCOS (polycystic ovarian syndrome) E28.2 ; BMI 36.0-36.9,adult Z68.36 and Hidradenitis suppurativa L73.2 [facility] [address] [place] [address] 05/06/2024 Jessy McNees [facility] [address] [address] 06/09/2024 Jessy McNees [facility] [address] [facility] [address] [place] [address] 07/06/2024 Jessy McNees Breast cancer screening by mammogram Z12.31 [facility] [address] [facility] [address] [place] [address] 12/10/2024 Jessy McNees [facility] [address] [facility] [address] [place] [address] 12/14/2024 Jessy McNees Vertigo R42 Assessments Encounter Date Diagnosis (ICD Code) Assessment Notes Treatment Notes Treatment Clinical Notes Section Notes 01/06/2024 Bilateral chronic serous otitis media (ICD-10 - H65.23) 01/06/2024 Recurrent otitis externa of left ear (ICD-10 - H60.92) Refer to ENT for evaluation and further recommendations. 02/17/2024 Immunization(s) administered (ICD-10 - Z23) 02/17/2024 Weight loss counseling, encounter for (ICD-10 - Z71.3) Weight is down total of 5lbs. Discussed low carb bread alternatives, needs for lean proteins and continued exercise. Recommend 1510-2014 jesus diet, exercise 30 min 4 days a week. RTC in 3 months for weight check or sooner prn 07/06/2024 Nausea and vomiting in adult (ICD-10 - R11.2) Stop probiotic, unlikely the cause but timeline of starting correlates with onset of symptoms. May be related to constipation, Crohn's. Will check KUB. Gillespie diet, no caffeine or fruit juice. If [...] weeks. 11/09/2024 BMI 35.0-35.9,adult (ICD-10 - Z68.35) 12/14/2024 Hypokalemia (ICD-10 - E87.6) K 3.1, given oral KCL prior to discharge. Labs repeated today 12/14/2024 Vertigo (ICD-10 - R42) [facility] records reviewed ENT note reviewed CTA head/neck [...] Refer to PT. FU in 1-2 weeks. 04/27/2024 Left chronic otitis media (ICD-10 - [...] she is having as well as probiotics 04/08/2024 Viral URI (ICD-10 - J06.9) Reassurance. [...] no improve or sooner if mood worsens 12/14/2024 Vertigo (ICD-10 - R42) 12/22/2024 Vitamin B 12 deficiency (ICD-10 - [...] since last visit. Pt to continue semaglutide 04/27/2024 Abscess of face (ICD-10 - L02.01) Bactrim may help with some with the abscess however given it's fluctuance, tenderness and size recommend urgent referral to dermatology for I&D. Warm compresses, otherwise no squeezing or attempting to drain 07/06/2024 Visit for screening mammogram (ICD-10 - Z12.31) 12/14/2024 Tachycardia (ICD-10 - R00.0) Likely related to beta humberto withdraw. Restart atenolol at 25mg po daily. Labs drawn to r/o underlying causes. Keep appointment with cardiology but I feel symptoms are from benign positional vertigo, see plan above. RTC in 1-2 weeks. 02/17/2024 Obesity, Class II, BMI 35-39.9 (ICD-10 - E66.812) 01/06/2024 BMI 35.0-35.9,adult (ICD-10 - Z68.35) Diet, exercise, weight loss discussed. continue wellbutrin 01/06/2024 Yeast dermatitis (ICD-10 - B37.2) improved. Keep clean and dry. Change to nystatin powder as above 12/22/2024 Hidradenitis suppurativa (ICD-10 - L73.2) Pt will continue semaglutide for weight management and improvement for symptoms of HS. She will also continue hibaclens and mupirocin ointment to reduce risk of infection. Plan Of Treatment Pending Test Test Name Order Date N-Rapid Influenza Test 04/07/2007 Holter Monitor, 48 hour 11/18/2018 H-CBC with AUTO DIFF 11/05/2011 C-BASIC METABOLIC 01/25/2019 M-Comprehensive Metabolic Panel 11/19/19 M-Magnesium 11/18/2018 M-Free T4 (Free Thyroxine) 11/18/2018 M-Thyroid Stimulating Hormone 11/18/2018 M-Vitamin B12 12/27/2020 M-Vitamin B12 11/18/2018 M-Vitamin D 25 Hydroxy 12/27/2020 M-Miscellaneous Culture 02/23/2022 Physical Therapy : Vertigo 12/14/2024 Next Appt Details Provider Name:Owen Mars, 01/19/2025 02:00:00 PM, [address], [place], [address], Insurance Providers Payer Name Payer Address Payer Phone Subscriber Number Group Number Insured Name Patient Relationship to Insured Coverage Start Date Coverage End Date [employer] [facility] [address] [address] [place] [address] [id number] Napoleon Guo Self - patient is the insured Medications Administered Medication Instructions Date of Administration Dosage Notes Ceftriaxone 500 01/24/2023 500 mg Cyanocobalamin/B-12 Pt's Own Medication 12/22/2018 1 mL Dexamethasone 4mg Injection 04/08/2024 4 mg Medical (General) History Medical History History ICD Code allergies asthma depression Crohns disease - followed by Dr Sams in [place] - colonoscopy 09/10 with tubular adenomas HTN Hidradenitis supp. MRSA LT EAR Surgical History Surgery Date(Month/Year) T&A septoplasty colonoscopy tubal ligation Appendectomy 08/2018 Hospitalization History Reason Date(Month/Year) Dizziness 11/2024 Crohns above
--- OUTSIDE RECORDS SUMMARY | 2024-12-31 11:07 | XMS_ITS | Encounter Summary ---
Author Organization [facility] Address [address] [place] [address] Care Team Providers Care Automation Design Engineer Name Role Phone Owen Mars MD Primary Care Provider [phone] Reason for Referral * Consultation (Routine) - Authorized Specialty Diagnoses / Procedures Referred By Contac t Referred To Contact Plastic Surgery Diagnoses Hidradenitis suppurativa Owen Mars MD [address] [place] [id number] Phone: tel: fax: Referral ID Status Reason Start Date Expiration Date Visits Requested Visits Authorized [id number] Authorized Specialty Services Required 11/02/2024 05/04/2026 1 1 Encounter Details Date Type Department Care Team (Latest Contact Info) Description 11/02/2024 [facility] [address] [place] [address] Owen Mars MD [address] [place] [address] Hidradenitis suppurativa (Primary Dx) Social History Tobacco [...] documented as of this encounter Care Teams Automation Design Engineer Relationship Specialty Start Date End Date Owen Mars MD [address] [place] [address] [place] [address] PCP - General Internal Medicine 04/25/22 documented as of this encounter
--- OUTSIDE RECORDS SUMMARY | 2024-12-31 11:07 | XMS_ITS | Encounter Summary ---
Author Organization [facility] Address [address] [place] [address] Care Team Providers Care Director Of Outreach Name Role Phone Owen Mars MD Primary Care Provider [phone] Encounter Details Date Type Department Care Team (Latest Contact Info) Description 03/28/2023 [facility] [address] [place] [address] Deja Carmichael, DRIER TENDER [address] [place] [address] Crohn's disease of intestine without complication (CMS/HCC) (Primary Dx); Hidradenitis suppurativa Social History Tobacco Use Types Packs/Day Years Used Date Smoking Tobacco: Former Cigarettes 1 15 2021 Passive Smoke Exposure: Never Smokeless Tobacco: [...] documented as of this encounter Care Teams Director Of Outreach Relationship Specialty Start Date End Date Owen Mars MD [address] [place] [address] PCP - General Internal Medicine 04/25/22 documented as of this encounter
--- OUTSIDE RECORDS SUMMARY | 2024-12-31 11:07 | XMS_ITS | Encounter Summary ---
Author Organization [facility] Address [address] [place] [address] Care Team Providers Care Bridge Construction Inspector Name Role Phone Owen Mars MD Primary Care Provider Encounter Details Date Type Department Care Team (Late st Contact Info) Description 12/09/2024 Orders Only External Location [address] [place] [address] Provider, External Social History Tobacco Use Types [...] documented as of this encounter Care Teams Bridge Construction Inspector Relationship Specialty Start Date End Date Owen Mars MD [address] [address] [place] [address] PCP - General Internal Medicine 04/25/22 documented as of this encounter
--- OUTSIDE RECORDS SUMMARY | 2024-12-31 11:07 | XMS_ITS | Encounter Summary ---
Author Organization [facility] Address [address] [place] [address] Care Team Providers Care Blanket Cutting Machine Operator Name Role Phone Owen Mars MD Primary Care Provider [phone] Encounter Details Date Type Department Care Team (Late st Contact Info) Description 12/09/2024 Orders Only External Location [address] [place] [address] Provider, External Social History Tobacco Use Types [...] Name Priority Date/Time Associated Diagnosis Comments CT OUTSIDE IMAGES 12/09/2024 2:21 PM EDT documented in this encounter Results * CT OUTSIDE IMAGES (12/09/2024 2:21 PM EDT) Anatomical Region Laterality Modality Computed Tomogra phy 12/09/2024 2:21 PM EDT External Provider IMG CT PROCEDURES [...] documented as of this encounter Care Teams Blanket Cutting Machine Operator Relationship Specialty Start Date End Date Owen Mars MD [address] [address] [place] [address] PCP - General Internal Medicine 04/25/22 documented as of this encounter
[2024-12-31 12:02] VITALS: BP 115/79; PULSE 77; O2SAT 99
--- NOTE | 2024-12-31 12:03 | HMH.EDGENADL ---
Discharge Plan Disposition Patient Disposition: Home, Self-Care Condition: Good Prescriptions Prescriptions: New clindamycin phosphate 1 % gel 1 applic topical BID Qty: 60 0RF clindamycin HCl [Cleocin HCl] 300 mg capsule 300 mg PO Q8H 7 Days Qty: 21 0RF sulfamethoxazole-trimethoprim 800-160 mg tablet 1 tab PO BID 7 Days Qty: 14 0RF No Action cetirizine 10 mg tablet 10 mg PO DAILY Patient Comments: TAKE ONE TABLET BY MOUTH EVERY DAY ketotifen fumarate 0.025 % (0.035 %) drops 2 drp ophthalmic (eye) BID Patient Comments: instill 1 drop IN EACH EYE TWICE DAILY dicyclomine 10 mg capsule PO levocetirizine 5 mg tablet PO Humira(CF) Pen 40 mg/0.4 mL pen injector kit 40 mg SQ WEEKLY Qty: 4 12RF Rx Instructions: Please inject 40 mg subcutaneously weekly fluticasone propion-salmeterol [Advair HFA] 115-21 mcg/actuation HFA aerosol inhaler 2 puff INHALATION BID Patient Comments: INHALE TWO PUFFS BY MOUTH TWICE DAILY --RINSE MOUTH AFTER USE-- meclizine 25 mg tablet 25 mg PO QID PRN (Reason: dizziness) Qty: 20 0RF Ozempic 0.25 mg or 0.5 mg(2 mg/1.5 mL) Pen Injector 0.25 mg SQ WEEKLY Rx Instructions: for 4 weeks bupropion HCl 150 mg tablet extended release 24 hr 150 mg PO DAILY Patient Comments: TAKE ONE TABLET BY MOUTH EVERY DAY potassium chloride 10 mEq capsule, extended release 10 meq PO DAILY Patient Comments: TAKE ONE CAPSULE BY MOUTH EVERY DAY spironolactone 100 mg tablet 100 mg PO BID Patient Comments: TAKE ONE TABLET BY MOUTH TWICE DAILY omeprazole 40 mg capsule,delayed release(DR/EC) 40 mg PO DAILY Patient Comments: TAKE ONE CAPSULE BY MOUTH EVERY DAY montelukast 10 mg tablet 10 mg PO HS Patient Comments: TAKE ONE TABLET BY MOUTH EVERY DAY atenolol 50 mg tablet 50 mg PO DAILY Patient Comments: TAKE ONE TABLET BY MOUTH EVERY DAY loratadine 10 mg tablet 10 mg PO DAILY Patient Comments: TAKE ONE TABLET BY MOUTH EVERY DAY escitalopram oxalate 20 mg tablet 20 mg PO DAILY Patient Comments: TAKE ONE TABLET BY MOUTH EVERY DAY Referrals Follow up/Referrals: Angel Edward MD [Staff Physician, General Surgery] - See instructions Besson,Owen, MD [Primary Care Provider, Internal Medicine] - See instructions Activity Restrictions/Add. Instructions Additional Instructions/Restrictions: Use the topical antibiotic as well as the oral antibiotic for 7 days. I have sent you with a referral to Dr. Edward as you may need further surgery. Return to the emergency department for any acute or worsening symptoms including fevers, chills, development or return of abscess. Clinical Impressions Clinical Impression: Abscess, Hidradenitis suppurativa Instructions Patient Instructions: DI for Skin Abscess Print Language Print Language: Irish Discharge ED Provider: Jamilah Shukla General Adult HPI General Chief complaint: Skin/Abscess/Foreign Body Stated complaint: cyst under left arm Time Seen by Provider: 12/31/24 11:04 Mode of Arrival: Family Vehicle Source of Information: Patient Description of Symptoms (Recalled from ER Triage Doc. by RN): Pt c/o large cyst to left axilla area approx the size of a baseball. States she has HS and takes Humira and Spirolactone. States she has had to have I&D in ER and OR for this issues previously. Reports it began to drain last night. Denies any fever, chills, or n/v/d. History of Present Illness HPI narrative: Patient is a 44-year-old female with a past medical history of hirradenitis suppurativa who presented to the emergency department with concern for lesion under her left axilla. Patient states that she has had this for many years has required surgical drainages in the past. Patient follows with Dr. Santos and, has an appointment scheduled on Friday. Patient states that the lesion under her left axilla is the largest she has never had. Patient states that she has not had any fevers, chills vomiting abdominal pain. Patient states that she is currently on Humira and does topical washes at home. Patient has not been on any recent antibiotics. Patient states that the lesion is very uncomfortable under her arm. Patient has not had any open drainage at this time. Related Data Home Medications ?Medication ?Instructions ?Recorded ?Confirmed atenolol 50 mg tablet 50 mg PO DAILY 10/29/23 12/13/24 escitalopram oxalate 20 mg tablet 20 mg PO DAILY 10/29/23 12/13/24 loratadine 10 mg tablet 10 mg PO DAILY 10/29/23 12/13/24 montelukast 10 mg tablet 10 mg PO HS 10/29/23 12/13/24 omeprazole 40 mg capsule,delayed 40 mg PO DAILY 10/29/23 12/13/24 release potassium chloride 10 mEq 10 meq PO DAILY 10/29/23 12/13/24 capsule,extended release spironolactone 100 mg tablet 100 mg PO BID 10/29/23 12/13/24 cetirizine 10 mg tablet 10 mg PO DAILY 11/17/23 12/13/24 ketotifen fumarate 0.025 % (0.035 2 drp ophthalmic (eye) BID 08/25/24 12/13/24 %) eye drops fluticasone propionate 115 2 puff inhalation BID 08/26/24 12/13/24 mcg-salmeterol 21 mcg/actuation HFA inhaler (Advair HFA) semaglutide 0.25 mg or 0.5 mg (2 0.25 mg SQ WEEKLY 12/09/24 12/13/24 mg/1.5 mL) subcutaneous pen injector (Ozempic) bupropion HCl 150 mg 24 hr tablet, 150 mg PO DAILY 12/10/24 12/13/24 extended release dicyclomine 10 mg capsule mg PO 12/13/24 12/13/24 levocetirizine 5 mg tablet mg PO 12/13/24 12/13/24 Previous Rx's ?Medication ?Instructions ?Recorded adalimumab 40 mg/0.4 mL 40 mg (0.4 mL) SQ WEEKLY #4 ea 11/22/24 subcutaneous pen kit (Humira(CF) Pen) meclizine 25 mg tablet 25 mg PO QID PRN dizziness #20 tabs 12/09/24 clindamycin HCl 300 mg capsule 300 mg PO Q8H 7 days #21 caps 12/31/24 (Cleocin HCl) clindamycin phosphate 1 % topical 1 applic topical BID #60 grams 12/31/24 gel sulfamethoxazole 800 1 tab PO BID 7 days #14 tabs 01/03/25 mg-trimethoprim 160 mg tablet Allergies Allergy/AdvReac Type Severity Reaction Status Date / Time tetracycline (TETRACYCLINE) Allergy Severe Difficulty Verified 12/13/24 11:44 Breathing Penicillins (PENICILLINS) Allergy Unknown Unknown Verified 12/13/24 11:44 allergy reaction PFSH PFS Disclaimer: The information contained in this section may have been updated after the patient was seen, as this information can be updated by other users. Medical History (Updated 12/31/24 @ 12:57 by Jamilah Shukla DO) Syncopal episodes Tachycardia Vertigo Tympanosclerosis of both ears Chronic otitis media of left ear with perforated tympanic membrane Recurrent candidiasis of vagina Candidal intertrigo Tinnitus, left ear Otalgia, left ear Yeast vaginitis Vulvar lesion Mixed hearing loss of left ear Normal hearing test of right ear Cerumen impaction Drainage from left ear Hearing difficulty of left ear Hidradenitis suppurativa Anemia Anxiety (~12/13/24) Cancer Asthma Hypertension Surgical History H/O tubal ligation History of colonoscopy History of incision and drainage History of tympanostomy tube placement History of tonsillectomy History of cholecystectomy History of section History of appendectomy Family History Other Diabetes Hypertension Social History Smoking Status: Former smoker tobacco type: cigarettes packs per day: 1 second hand exposure: Yes alcohol intake: current alcohol intake frequency: holidays/special occasions only substance use type: denies use current occupational status: unemployed Travel in the last 8 weeks?: None housing: house caffeine: Yes Other Medical History Have you received the Flu Vaccine for this season: No (N/A) Have you received the Pneumonia Vaccine: No ROS Obtained: Yes All systems reviewed & no additional complaints except as documented and Yes Systems reviewed as appropriate & no additional complaints except as documented Physical Exam General General appearance: alert and in no apparent distress Head Head exam: atraumatic, normocephalic and normal inspection Eye Eye exam: Present normal appearance, PERRL and EOMI; Absent scleral icterus ENT ENT exam: Present normal exam and normal external ear exam Neck Neck exam: Present normal inspection and full ROM Chest Chest inspection: Present normal inspection and symmetric chest wall rise Respiratory Respiratory exam: Present normal lung sounds bilaterally; Absent respiratory distress or wheezes Cardiovascular Cardiovascular exam: Present regular rate, normal rhythm and normal heart sounds Abdominal Exam Abdominal exam: Present soft and distention; Absent tenderness, guarding or rebound Extremities Exam Extremities exam: Present normal inspection and full ROM Back Exam Back exam: Present normal inspection and full ROM Neurological Exam Neurological exam: Present alert and oriented X3 Psychiatric Psychiatric exam: Present normal affect and normal mood Skin Skin exam: Present warm, dry and other (multiple scars under left axilla. Large area of fluctuance that is [id number]. No surrounding erythema, no spreading.redness.) Medical Decision Making Medical Records Medical records reviewed: Yes I reviewed the patient's medical records. Screening: Per USPSTF and CDC recommendations, given the prevalence of disease in our region, it is our hospital?s policy to screen for HIV and viral Hepatitis for all patients aged 18 and over and those with ongoing risk factors. [place] Inquiry Pt receiving controlled substance: No Vital Signs: 12/31/24 11:02 12/31/24 12:02 12/31/24 13:52 Temperature 97.9 F 98.0 F Temperature Source Oral Oral Pulse Rate 77 72 Pulse Rate [Right] 84 Respiratory Rate 17 18 Blood Pressure 115/79 110/77 Blood Pressure [Right Arm] 131/80 Blood Pressure Mean [Right Arm] 97 Blood Pressure Source Automatic Cuff Blood Pressure Source [Right Arm] Automatic Cuff Blood Pressure Position 02 Sat by Pulse Oximetry 99 99 Oxygen Delivery Method Room Air Room Air 12/31/24 13:52 Temperature 97.9 F Temperature Source Pulse Rate 70 Pulse Rate [Right] Respiratory Rate 14 Blood Pressure 110/77 Blood Pressure [Right Arm] Blood Pressure Mean [Right Arm] Blood Pressure Source Automatic Cuff Blood Pressure Source [Right Arm] Blood Pressure Position Supine 02 Sat by Pulse Oximetry Oxygen Delivery Method Room Air Lab Data Lab results reviewed: Yes I reviewed the patient's lab results. Lab Results 12/31/24 12:45: WBC 13.3 H, RBC 3.57 L, Hgb 11.1 L, Hct 34.4 L, MCV 96.4, MCH 31.1, MCHC 32.3, RDW 11.8, Plt Count 539 H, MPV 9.3, Neut % (Auto) 75.9, Lymph % (Auto) 14.2, [place] % (Auto) 5.3, Eos % (Auto) 3.8, Baso % (Auto) 0.3, Neut # (Auto) 10.1 H, Lymph # (Auto) 1.9, [place] # (Auto) 0.7, Eos # (Auto) 0.5 H, Baso # (Auto) 0.0, Sodium 140, Potassium 3.6, Chloride 102, Carbon Dioxide 28, Anion Gap 13.6, BUN 5 L, Creatinine 0.80, Estimated Creat Clear 125, Estimated GFR 79, Est GFR ( Amer) 95, Glucose 117 H, Calcium 9.1, Total Bilirubin 0.3, AST 30, ALT 28, Alkaline Phosphatase 98, C-Reactive Protein 68.1 H, Total Protein 8.6 H, Albumin 4.1, Globulin 4.5 H, Albumin/Globulin Ratio 0.9 L, Serum HCG, Qual Negative 12/31/24 12:45 12/31/24 12:45 Orders (Tests/Meds): ED MEDICATIONS Discontinued Medications Generic Name Dose Route Start Last Admin Trade Name Freq PRN Reason Stop Dose Admin Lidocaine HCl 10 ml 12/31/24 13:24 12/31/24 13:27 Lidocaine 1% 10ml Mdv SUBCUT 12/31/24 13:25 2 ml ONCE ONE Administration ORDERS Category Date Time Status POCUS Point of Care (ER Only) Stat Exams 12/31/24 11:18 Completed CBC w/Auto Diff [Complete Blood Count Auto Diff] Stat Lab 12/31/24 12:45 Completed CMP [Comprehensive Metabolic Panel] Stat Lab 12/31/24 12:45 Completed CRP [C-Reactive Protein] Stat Lab 12/31/24 12:45 Completed HCG Qualitative, Serum Stat Lab 12/31/24 12:45 Completed Blood Culture Stat Micro 12/31/24 11:58 Results Wound Culture and Gram Stain Stat Micro 12/31/24 13:51 Completed Medical Decision Narrative: Patient is an otherwise healthy 44-year-old female who presented to the emergency department with a lesion under her left axilla. On arrival, patient was hemodynamically stable with unremarkable vital signs. Differential includes but not limited to: Hidradenitis suppurativa, abscess, cellulitis, bacteremia, amongst others. On exam, patient was very well clinically appearing, patient had multiple old scars under her left axilla from previous I&D's. Patient with follows with Dr. Edward general surgery. Patient has an appointment scheduled on Friday. Patient had a large fluctuant abscess. Ultrasound was performed that showed large pocket of fluid. No vascular lesion. Labs were sent which were reviewed and interpreted by myself. CBC showed mild leukocytosis. CMP was unremarkable. Blood cultures were sent. Stab incision was performed at bedside with significant pus drainage. Patient was sent with oral clindamycin as well as topical clindamycin. Wound culture was sent. Patient was advised to follow-up with Dr. Edward as scheduled on Friday. Return precautions were discussed. Patient was discharged home in stable condition. Soft Tissue Ultrasound Indication: abscess Identified structures: abscess Location: L axilla Findings:abscess, no vascular structures Impression: abscess Images [were] saved to the permanent archive. ?The study [was] technically adequate. Soft tissue CPT codes Axilla: 88182-75 This study was performed by me, and I personally interpreted all images/videos. ?Based on my clinical judgment, these images were [adequate] and [did not] necessitate further imaging. Procedures Abscess I/D Site: upper extremity (axilla, left) Side (if applicable): left Local Anesthetic: lidocaine 1% Amount of anesthesia used (mL): 10 Technique: incised with #11 blade Irrigation: No Packing used?: none Critical Care Critical Care Time Critical Care Time: No
[2024-12-31 12:57] LABS: Hematocrit 34.4 % (37.0-47.0); Hemoglobin 11.1 g/dL (12.2-16.2); Immature Granulocytes % 0.5 %; Mean Corpuscular HGB Conc 32.3 g/dL (31.8-35.4); Mean Corpuscular Hemoglobin 31.1 pg (27.0-31.2); Mean Corpuscular Volume 96.4 fl (81-99); Nucleated Red Blood Cells % 0 %; Platelet Count 539 K/mm3 (142-424); Red Blood Count 3.57 M/mm3 (4.20-5.40); Red Cell Distribution Width-SD 41.9 fL; White Blood Count 13.3 K/mm3 (4.8-10.8)
[2024-12-31 13:11] LABS: HCG Qualitative, Serum Negative (Negative)
[2024-12-31 13:12] LABS: Alanine Aminotransferase 28 U/L (12-78); Albumin Level 4.1 g/dl (3.5-5.0); Albumin/Globulin Ratio 0.9 (1.1-1.8); Alkaline Phosphatase 98 U/L (38-126); Anion Gap 13.6 mEq/L (5-15); Aspartate Amino Transferase 30 U/L (14-36); Bilirubin,Total 0.3 mg/dl (0.2-1.3); Blood Urea Nitrogen 5 mg/dl (7-17); Calcium 9.1 mg/dl (8.4-10.2); Carbon Dioxide 28 mmol/L (22.0-30.0); Chloride 102 mmol/L (98-107); Creatinine Clearance Estimated 125 mL/min (50-200); Creatinine,Serum 0.80 mg/dl (0.52-1.04); Estimated Glomerular Filt Rate 79 ml/min (>60); GFR (African American) 95 ML/MIN (>60); Globulin 4.5 g/dL (1.3-3.2); Glucose 117 mg/dl (74-100); Potassium 3.6 mmoL/L (3.5-5.1); Sodium 140 mmol/L (136-145); Total Protein,Serum 8.6 g/dl (6.3-8.2)
[2024-12-31 13:17] LABS: C-Reactive Protein 68.1 mg/L (0-4)
[2024-12-31] MEDS: LIDOCAINE 1% 10ML MDV 10 ML SUBCUT (13:27)
[2024-12-31 13:52] VITALS: BP 110/77; PULSE 70; PULSE 72; RESP 14; RESP 18; TEMP 36.6; TEMP 36.7; O2SAT 99
--- NOTE | 2025-01-02 18:23 | PC.NURSE ---
I discussed the pts final gram stain with . No change needed to the pts treatment.
--- NOTE | 2025-01-03 09:02 | PC.NURSE ---
Addendum entered by Flaca Webber RN 01/03/25 09:05: Wound culture results. Original Note: Urine culture results reviewed by Dr. Murcia. Bactrim DS BID x 7 days prescribed. Attempted to call patient and inform her to stop Clindamycin and start new prescription, no answer, left message for patient to call back.
--- NOTE | 2025-01-03 13:01 | PC.NURSE ---
Patient returned call regarding wound culture- advised her of new prescription at pharmacy and to stop clindamycin. She verbalized understanding.
== END 2024-12-31 13:57 | disposition home or self-care (01) ==
PROVIDERS: Emergency Provider Student in an Organized Health Care Education/Training Program; PCP Internal Medicine Adolescent Medicine
DX: L02.412 Cutaneous abscess of left axilla (principal); L73.2 Hidradenitis suppurativa
CPT/HCPCS: 10060; 10061; 36415; 80053; 84703; 85025; 86140; 87040; 87070; 87077; 87186; 87205; 99284

== ENCOUNTER 2025-02-04 10:19 | Outpatient (CLI) | payer OTHER, SELFPAY ==
[2025-02-04] VITALS (8 sets, daily range): BP systolic 96–119; BP diastolic 62–77; PULSE 77–98; RESP 18–20; TEMP 36.6; O2SAT 98–99
--- OUTSIDE RECORDS SUMMARY | 2025-02-04 10:22 | XMS_ITS | Clinical Summary ---
Author Organization [facility] Address [address] [place] [address] Care Team Providers Care Technical Services Coordinator Name Role Phone Owen Mars MD Primary Care Provider [phone] Allergies Active Allergy Reactions Criticality Noted Date [...] day. Active ergocalciferol (Vitamin D-2) 1.25 MG (55096 UT) capsule Take 1 capsule (50,000 Units) [...] (06/14/2022): Added automatically from request for surgery [id number] Encounters Date Type Department Care Team Description 12/09/2024 Orders Only External Location [address] [place] [address] Provider, External 12/09/2024 Orders Only External Location [address] [place] [address] Provider, External 12/09/2024 Orders Only External Location [address] [place] [address] Provider, External from Last 3 Months Family History Medical [...] 07/02/2023 11:36 AM EST Plan of Treatment Upcoming Encounters Date Type Department Care Team (Late st Contact Info) Description 02/15/2025 1:30 PM EDT Office Visit [facility] [address] [place] [address] Piyush Mina MD [address] [facility] [address] [place] [address] Health Maintenance Due Date Last Done Comments [facility]-HIV Screening 1982 [facility]-Infant/Child/Adol SDOH Screenings 1982 [facility]-Varicella Vaccines (1 of 2 - 13+ 2-dose series) 1995 [facility]-DTaP,Tdap,and Td Vaccines (2 - Tdap) 06/29/1997 06/28/1997 [facility]- SDOH Screenings 2000 [facility]-Adult SDOH Screenings 2000 [facility]-Zoster Vaccines (1 of 2) 2001 [facility]-Pap Smear 2003 HPV Vaccines (1 - 3-dose SCDM series) 2009 [facility]-Cervical Cancer Screening 2012 [facility]-HPV/Cotest 2012 [id number] Vaccine (3 - Moderna risk series) 09/27/2020 [...] IgM Negative Negative 07/02/2023 3:34 PM EST [facility] Blood Venous blood specimen / Unknown Venipuncture / Unknown 07/02/2023 1:40 PM EST 07/02/2023 1:40 PM EST Shelley Hernandez TRAFFIC ATTENDANT LAB BLOOD ORDERABLES Final Result [facility] [address] [place] [address] from Last 3 Months or Most Recently Relevant to Health Maintenance [place] [address] [employer] Care Teams Technical Services Coordinator Relationship Specialty Start Date End Date Owen Mars MD [address] [place] [address] PCP - General Internal Medicine 04/25/22
--- OUTSIDE RECORDS SUMMARY | 2025-02-04 10:22 | XMS_ITS | Encounter Summary ---
Author Organization [facility] Address [address] [place] [address] Care Team Providers Care Background Check Coordinator Name Role Phone Owen Mars MD Primary Care Provider Encounter Details Date Type Department Care Team (Late Contact Info) Description 12/09/2024 Orders Only External Location [address] [place] [address] Provider, External Social History Tobacco Use Types [...] as of this encounter Plan of Treatment Upcoming Encounters Date Type Department Care Team (Late st Contact Info) Description 02/15/2025 1:30 PM EDT Office Visit [facility] [address] [place] [address] Piyush Mina MD [address] [facility] [address] [place] [address] documented as of this encounter Procedures Procedure [...] documented as of this encounter Care Teams Background Check Coordinator Relationship Specialty Start Date End Date Owen Mars MD [address] [place] [address] PCP - General Internal Medicine 04/25/22 documented as of this encounter
--- OUTSIDE RECORDS SUMMARY | 2025-02-04 10:22 | XMS_ITS | Encounter Summary ---
Author Organization [facility] Address [address] [place] [address] Care Team Providers Care Mash Grinder Name Role Phone Owen Mars MD Primary Care Provider [phone] Reason for Referral * Consultation (Routine) - Authorized Specialty Diagnoses / Procedures Referred By Contac t Referred To Contact Plastic Surgery Diagnoses Hidradenitis suppurativa Owen Mars MD [address] [place] [id number] Phone: tel: fax: Referral ID Status Reason Start Date Expiration Date Visits Requested Visits Authorized [id number] Authorized Specialty Services Required 11/02/2024 05/04/2026 1 1 Encounter Details Date Type Department Care Team (Latest Contact Info) Description 11/02/2024 [facility] [address] [place] [address] Owen Mars MD [address] [facility] [address] [place] [address] Hidradenitis suppurativa (Primary Dx) Social History Tobacco [...] Description 02/15/2025 1:30 PM EDT Office Visit [facility] [address] [place] [address] Piyush Mina MD [address] [facility] [address] [place] [address] Scheduled Referrals Name Type Priority Associated Diagnoses [...] documented as of this encounter Care Teams Mash Grinder Relationship Specialty Start Date End Date Owen Mars MD [address] [place] [address] PCP - General Internal Medicine 04/25/22 documented as of this encounter
--- OUTSIDE RECORDS SUMMARY | 2025-02-04 10:22 | XMS_ITS | Encounter Summary ---
Author Organization [facility] Address [address] [place] [address] Care Team Providers Care Integrity Engineer Name Role Phone Owen Mars MD Primary Care Provider [phone] Encounter Details Date Type Department Care Team (Late Contact Info) Description 12/09/2024 Orders Only External Location [address] [place] [address] Provider, External Social History Tobacco Use Types [...] Description 02/15/2025 1:30 PM EDT Office Visit [facility] [address] [place] [address] Piyush Mina MD [address] [facility] [address] [place] [address] documented as of this encounter Procedures Procedure [...] documented as of this encounter Care Teams Integrity Engineer Relationship Specialty Start Date End Date Owen Mars MD [address] [place] [address] PCP - General Internal Medicine 04/25/22 documented as of this encounter
--- OUTSIDE RECORDS SUMMARY | 2025-02-04 10:22 | XMS_ITS | Encounter Summary ---
Author Organization [facility] Address [address] [place] [address] Care Team Providers Care Box Bender Name Role Phone Owen Mars MD Primary Care Provider Encounter Details Date Type Department Care Team (Late Contact Info) Description 12/09/2024 Orders Only External Location [address] [place] [address] Provider, External Social History Tobacco Use Types [...] Description 02/15/2025 1:30 PM EDT Office Visit [facility] [address] [place] [address] Piyush Mina MD [address] [facility] [address] [place] [address] documented as of this encounter Procedures Procedure [...] documented as of this encounter Care Teams Box Bender Relationship Specialty Start Date End Date Owen Mars MD [address] [place] [address] PCP - General Internal Medicine 04/25/22 documented as of this encounter
--- OUTSIDE RECORDS SUMMARY | 2025-02-04 10:22 | XMS_ITS | Encounter Summary ---
Author Organization [facility] Address [address] [place] [address] Care Team Providers Care Capper Machine Operator Name Role Phone Owen Mars MD Primary Care Provider Encounter Details Date Type Department Care Team (Latest Contact Info) Description 03/28/2023 [facility] [address] [place] [address] Deja Carmichael, ROUGHER OPERATOR [address] [place] [address] Crohn's disease of intestine without complication (CMS/HCC) (Primary Dx); Hidradenitis suppurativa Social History Tobacco Use Types Packs/Day Years Used Date Smoking Tobacco: Former Cigarettes 1 15 2 - 2021 Passive Smoke Exposure: Never Smokeless Tobacco: [...] Description 02/15/2025 1:30 PM EDT Office Visit [address] [id number] [place] [address] [place] [address] [place] [address] documented as of this encounter Visit Diagnoses [...] documented as of this encounter Care Teams Capper Machine Operator Relationship Specialty Start Date End Date Owen Mars MD [address] [place] [address] PCP - General Internal Medicine 04/25/22 documented as of this encounter
[2025-02-04] MEDS: SODIUM CHLORIDE 0.9% 10ML FLUSH SYRINGE 10 ML IV (10:49)
[2025-02-04] MEDS: DEXTROSE 5% IV (10:49)
[2025-02-04] MEDS: [UNRECOGNIZED DRUG - OTHER] IV (10:49)
== END 2025-02-04 23:59 | disposition home or self-care (01) ==
LOC: INF 10:20
PROVIDERS: PCP Internal Medicine Adolescent Medicine; Visit Provider Internal Medicine Adolescent Medicine
DX: A49.2 Hemophilus influenzae infection, unspecified site (principal); L73.2 Hidradenitis suppurativa
CPT/HCPCS: 96365; 96366; J2407; J7070

== ENCOUNTER 2025-03-02 10:08 | Outpatient (CLI) | payer OTHER, SELFPAY ==
--- OUTSIDE RECORDS SUMMARY | 2024-08-21 17:30 | XMS_ITS ---
Author Organization [facility] Address [address] [place] [address] Care Team Providers Care Turret Punch Operator Name Role Phone Madisyn Owen Primary Care Provider [phone] Deja Carmichael Unavailable [phone] Migration, Provider Unavailable Unavailable Allergies Allergen (clinical drug ingredient) Drug/Non Drug Allergy documented on EMR Reaction Allergy Type Onset Date Status Penicillin Unknown Drug Allergy Active tetracycline Tetracycline Unknown Drug Allergy A ctive REASON FOR VISIT [facility] Encounter Medications Medication SIG (Take, Route, [...] review and pick correct strength-formulat ion from [facility] options. If intended option is not shown, [...] review and pick correct strength-formulat ion from [employer] options. If intended option is not shown, discontinue and re-order from Quick Search* Active Fluticasone Propionate 50 MCG/ACT as directed in each nostril once a day; Duration: 30 day(s) Active Nyamyc 517975 UNIT/GM 1 alden applied topically 3 times [...] review and pick correct strength-formulat ion from [employer] options. If intended option is not shown, discontinue and re-order from Quick Search* 09/30/2018 Active metFORMIN HCl 1000 MG 1 tab(s) orally 2 times a day; Duration: 90 days Active Encounters Encounter Location Date Provider Diagnosis [facility] [address] [facility] [address] [place] [address] 08/21/2024 Provider Migration Recurrent acute serous otitis [...] days Next Appt Details Provider Name:Owen Mars, 03/23/2025 12:00:00 PM, [address] [facility] [address] [facility], [address], [place], [address], Progress Notes * Napoleon GUO LDOB:[birth year] (44 yo F)Acc No.[id number]:08/21/2024 Patient: Napoleon BARONE Provider: Tato Solorio :1980 A ge:44 Y S ex:Female Date:08/21/2024 Address:[address] [place] [id number] Pcp:Owen Mars Subjective: * Chief Complaints: * [...] *Please review and pick correct strength-formulation [facility] options. If intended option is not shown, discontinue and re-order from Quick Search*, Taking NURTEC ODT 75 MG TABLET, DISINTEGRATING 1 TAB(S) ORALLY ONCE , Notes to Pharmacist: *Please review for potential replacement for e-prescription and drug interaction check*, Taking Vitamin D2 1.25 MG CAPSULE 1 CAP(S) ORALLY ONCE A WEEK , Notes to Pharmacist: *Please review and pick correct strength-formulation from [employer] options. If intended option is not shown, discontinue and re-order from Quick Search*, Taking Omeprazole 40 MG Capsule Delayed Release 1 cap(s) orally once a day , Taking Nyamyc 365682 UNIT/GM Powder 1 alden applied topically 3 [...] *Please review and pick correct strength-formulation from [employer] options. If intended option is not shown, [...] Electronic signature of Prov ider Migration on 03/02/2025 at 10:22 AM EDT Sign off status: Pending * Provider: Tato lopez Migration Date: 0 08/21/2024 Generated for Torres bullock/Radha/Maxim on: 1 10:22 AM EDT
--- OUTSIDE RECORDS SUMMARY | 2025-01-19 10:00 | XMS_ITS ---
Author Organization [facility] Address [address] [facility] [address] [facility] [address] [place] [address] Care Team Providers Care Flush Tester Name Role Phone Owen Mars Primary Care Provider Deja Carmichael Rocío [phone] REASON FOR VISIT 4 wk FU Encounters Encounter Location Date Provider Diagnosis [place] [facility] [address] [facility] [address] [place] [id number] 01/19/2025 Owen Mars Plan Of Treatment Next Appt Details Provider Name:Owen Mars, 03/23/2025 12:00:00 PM, [address] [facility] [address] [facility], [address], [place], [address], Progress Notes * Napoleon GUO LDOB:[birth year] (44 yo F)Acc No.[id number]:01/19/2025 Progress Notes Patient: Brent BARONEana luisa Cheng Provider: Yudy Mars MD :1980 A ge:44 Y S ex:Female Date:01/19/2025 Address:[address] [id number] Subjective: * Chief Complaints: * 1 . 4 wk FU. * HPI: g en: Gen H TN G ERD A llergies A sthma D epression/Anxiety . * Medical History: Objective: * Vitals: Assessment: Plan: * Treatment: * * Electronic signature of Rashid Mars MD FAAP on 03/02/2025 at 10:22 AM EDT Sign off status: Pending * Provider: Yudy Mars MD Date: 0 01/19/2025 Generated for Torres bullock/Radha/Maxim on: 1 10:22 AM EDT History and Physical Notes * HPI (History of Present Illness) Category Sub-Category Detail Notes Category Not es gen Gen HTNGERDAllergiesAsthmaDepres taina/Anxiety
--- OUTSIDE RECORDS SUMMARY | 2025-02-02 06:30 | XMS_ITS ---
Author Organization [facility] Address [address] [place] [address] Care Team Providers Care Brine Room Laborer Name Role Phone Owen Mars Primary Care Provider Deja Carmichael [phone] Allergies Allergen (clinical drug ingredient) Drug/Non Drug Allergy documented on EMR Reaction Allergy Type Onset Date Status Penicillin Unknown Drug Allergy Active tetracycline Tetracycline Unknown Drug Allergy A ctive REASON FOR VISIT Left Arm has a place that is not healing Medications Medication SIG (Take, Route, Frequency, Duration) Notes Start Date End Date Status buPROPion HCl ER (XL) 150 MG 1 tab(s) or ally every 24 hours; Duration: 30 days Active Advair HFA 115-21 MCG/ACT INHALE TWO PUF FS BY MOUTH TWICE DAILY - RINSE MOUTH AFTER USE-; Duration: 30 Active Atenolol 50 MG 1/2 tab Orally Once a day; Duration: 30 days 12/14/2024 Active Potassium Chloride ER 10 mEq TAKE ONE CA PSULE BY MOUTH EVERY DAY; Duration: 30 Active Montelukast Sodium 10 mg TAKE ONE TABLET BY MOUTH EVERY DAY; Duration: 30 Active Escitalopram Oxalate 20 mg TAKE ONE TABL ET BY MOUTH EVERY DAY; Duration: 30 Active Ondansetron 4 MG 1 tab(s) orally ever y 6 hours; Duration: 7 days 07/06/2024 Active Levocetirizine Dihydrochloride 5 MG 1 tab(s) orally once a day (in the evening); Duration: 30 days Active Mupirocin 2 % 1 alden applied topica lly 3 times a day; Duration: 7 days 05/13/2024 Active hydroCHLOROthiazide 25 MG 1 tablet in th e morning Orally Once a day; Duration: 30 days 02/02/2025 Active Omeprazole 40 MG 1 cap(s) orally once a day; Duration: 30 days Active Nyamyc 084212 UNIT/GM 1 alden applied topi kailey 3 times a day; Duration: 14 days prn 01/06/2024 Active Fluticasone Propionate 50 MCG/ACT as directed in each nostril once a day; Duration: 30 day(s) Active Meclizine HCl 12.5 MG 1 tablet as needed Orally daily Active HUMIRA 40 MG/0.8 ML DIRECTED SUBCUTANEOUSLY EVERY WEEK Active Mupirocin 2 % 1 application Externally Twice a day; Duration: 20 days 02/02/2025 Active Chlorhexidine Gluconate 4% 1 ALDEN APPLIED TOPICALLY ONCE; Duration: 1 DAY(S) prn 09/30/2018 Active NURTEC ODT 75 MG 1 TAB(S) ORALLY ONCE 12/31/2021 Active Vital Signs Temperature 97.7 degrees Fahrenheit 02/03/20 25 Heart Rate 84 /min 02/02/2025 Blood pressure systolic 116 mm Hg 02/03/20 25 Blood pressure diastolic 74 mm Hg 025 Height 5 ft 4 in in 02/02/2025 Weight 191 lbs 02/02/2025 BMI 32.78 kg/m2 02/02/2025 Encounters Encounter Location Date Provider Diagnosis [facility] [place] [address] [facility] [address] [place] [address] 02/02/2025 Owen Mars Hidradenitis suppurativa L73.2 ; MRSA infection A49.02 and Vertigo R42 Assessments Encounter Date Diagnosis (ICD Code) Assessment Notes Treatment Notes Treatment Clinical Notes Section Notes 02/02/2025 Hidradenitis suppurativa (ICD-10 - L73.2) Pt was advised to keep and attend her appointment with [facility] on February 15. Pt was placed on Mupirocin ointment to be applied twice daily. Pt was also scheduled for Orbactiv infusion treatment. Pt will f/u in one week to evaluate efficacy of infusion treatment. Pt was advised to continue applying sterile dressings to the area with the ointment. 02/02/2025 MRSA infection (ICD-10 - A49.02) Pt was sent for Orbactiv infusion treatment for MRSA skin infection related to her HS. Pt has previously tried Bactrim, Clindamycin, and Linezolid with no resolution of her HS complaints. Pt has an appointment with [facility] on February 15 to evaluate her recurrent HS complaints. Pt was told to f/u in 1 week to the clinic to evaluate efficacy of infusion. 02/02/2025 Vertigo (ICD-10 - R42) Pt was encouraged to continue using her Meclizine as needed for symptoms. Pt was placed on HCTZ to alleviate her Vertigo symptoms. Pt was encouraged to continue any supportive care measures for management of her symptoms. Plan Of Treatment Medication Medication Name Sig Start Date Stop Date Notes hydroCHLOROthiazide 25 MG 1 tablet in th e morning Orally Once a day; Duration: 30 days 02/02/2025 Mupirocin 2 % 1 application Device Processing Engineer ally Twice a day; Duration: 20 days 02/02/2025 Treatment Notes Assessment Notes Hidradenitis suppurativa Pt was advised to keep and attend her appointment with [facility] on February 15. Pt was placed on Mupirocin ointment to be applied twice daily. Pt was also scheduled for Orbactiv infusion treatment. Pt will f/u in one week to evaluate efficacy of infusion treatment. Pt was advised to continue applying sterile dressings to the area with the ointment. MRSA infection Pt was sent for Orba ctiv infusion treatment for MRSA skin infection related to her HS. Pt has previously tried Bactrim, Clindamycin, and Linezolid with no resolution of her HS complaints. Pt has an appointment with [facility] on February 15 to evaluate her recurrent HS complaints. Pt was told to f/u in 1 week to the clinic to evaluate efficacy of infusion. Vertigo Pt was encouraged to continue using her Meclizine as needed for symptoms. Pt was placed on HCTZ to alleviate her Vertigo symptoms. Pt was encouraged to continue any supportive care measures for management of her symptoms. Next Appt Details Follow Up: 1 Week, Reason: Provider Name:Owen Mars, 03/23/2025 12:00:00 PM, [address] [place] [facility] [address] [facility], [address], [place], [address], Progress Notes * Napoleon GUO LDOB:[birth year] (44 yo F)Acc No.[id number]:02/02/2025 Progress Notes Patient: Napoleon BARONE Provider: Yudy Mars MD :1980 A ge:44 Y S ex:Female Date:02/02/2025 Address:[address] [place], [place] [id number] Subjective: * Chief Complaints: * 1 . Left Arm has a place that is not healing. * HPI: g en: Gen [age]yo female comes in for a nonhealing spot in her left armpit. Pt has a history of HS. Pt explained this spot appeared 2 months ago and grew to be bigger than a cutie orange . Pt went to the ER one month ago for an I&D. Pt explained the area had significant drainage and the ED left the area open to continue draining. Pt was placed on Bactrim and clindamycin. Pt saw her general surgeon one week later and was switched to Linezolid. Pt explained the surgeon placed and oil based gauze with sterile dressin and told her to finish her course of Linezolid. Pt reports no resolution after finishing her antibiotic course. Her surgeon scheduled her to be seen at a facility for evaluation by Infectious Disease, Dermatology, and Plastic Surgery. Appointment was scheduled for January 20 and pt had to reschedule for February 15. Pt explains the area has continued to drain thick green discharge. Pt changes her dressings twice per day when they are soaked through. Pt explains the area has flattened out since the I&D but never stopped draining. Pt explains she feel exquisite pain in the area when pressure is applied by her arm resting. Pt also reports worsening chills at night since the I&D. Pt denies fevers, night sweats, or body aches. Pt explains she is typically placed on Clindamycin for her HS flares and it clears the infection. Pt was hospitalized roughly 8 weeks ago for vertigo and underwent several rounds of Clinda for an HS flare. Pt denies any treatment since finishing Linezolid. Pt explains her vertigo symptoms have returned recently but are not as severe as they were before her hospitalization. Pt has no other concerns today.. * Medical History: A llergies, Asthma, Depression, Crohns disease - followed by Dr Sams in [place] - colonoscopy 09/10 with tubular adenomas, HTN, Hidradenitis supp., MRSA LT EAR. * Surgical History: c -section , T&A , septoplasty , colonoscopy , tubal ligation , Appendectomy 08/2018. * Hospitalization/Major Diagno stic Procedure: a cathryn , Crohns , Dizziness 11/2024. * Medications: T aking Meclizine HCl 12.5 MG Tablet 1 tablet as needed Orally daily , Taking HUMIRA 40 MG/0.8 ML KIT DIRECTED SUBCUTANEOUSLY EVERY WEEK , Taking Chlorhexidine Gluconate 4% SOAP 1 ALDEN APPLIED TOPICALLY ONCE , Notes to Pharmacist: prn, Taking NURTEC ODT 75 MG TABLET, DISINTEGRATING 1 TAB(S) ORALLY ONCE , Taking Omeprazole 40 MG Capsule Delayed Release 1 cap(s) orally once a day , Taking Nyamyc 498203 UNIT/GM Powder 1 alden applied topically 3 [...] a day (in the evening) , Taking Montelukast Sodium 10 mg Tablet TAKE ONE TABLET BY MOUTH EVERY DAY , Taking Escitalopram Oxalate 20 mg Tablet TAKE ONE TABLET BY MOUTH EVERY DAY , Taking Atenolol 50 MG Tablet 1/2 tab Orally Once a day , Taking buPROPion HCl ER (XL) 150 MG Tablet Extended Release 24 Hour 1 tab(s) orally every 24 hours , Taking Advair HFA 115-21 MCG/ACT Aerosol INHALE TWO PUFFS BY MOUTH TWICE DAILY - RINSE MOUTH AFTER USE- , Taking Potassium Chloride ER 10 mEq Capsule Extended Release TAKE ONE CAPSULE BY MOUTH EVERY DAY , Discontinued Vitamin D2 1.25 MG CAPSULE 1 CAP(S) ORALLY ONCE A WEEK , Discontinued Semaglutide(0.25 or 0.5MG/DOS) 2 MG/3ML Solution Pen-injector 0.5mg Subcutaneous weekly , Medication List reviewed and reconciled with the patient * Allergies: P enicillin, Tetracycline: Allergy. Objective: * Vitals: N urse: be, Pain: 5, Temp: 97.7, RR: 16, HR: 84, BP: 116/74, Ht: 5 ft 4 in, Wt: 191, BMI:32.78. * Examination: G eneral Examination: General P leasant and Cooperative. Chest: n ormal shape and expansion. Heart: R egular Rate and Rhythm, no murmur, rubs or gallops. Lungs: L CTAB, No wheezes, crackles or rhonchi, Good air movement,. Extremities: L eft underarm: flattened boil (roughly 2 inch diameter) that began bleeding when Bandaid was removed, area is extremely tender to touch.. General Appearance: u ncomfortable due to pain. ? Assessment: * Assessment: 1. H idradenitis suppurativa - L73.2 (Primary) 2 . M RSA infection - A49.02? 3. V ertigo - R42 Plan: * Treatment: 2. M RSA infection Notes: Pt was sent for Orbactiv infusion treatment for MRSA skin infection related to her HS. Pt has previously tried Bactrim, Clindamycin, and Linezolid with no resolution of her HS complaints. Pt has an appointment with [facility] on February 15 to evaluate her recurrent HS complaints. Pt was told to f/u in 1 week to the clinic to evaluate efficacy of infusion. 3. V ertigo Start hydroCHLOROthiazide Tablet, 25 MG, 1 tablet in the morning, Orally, Once a day, 30 days, 30, Refills 3. Notes: Pt was encouraged to continue using her Meclizine as needed for symptoms. Pt was placed on HCTZ to alleviate her Vertigo symptoms. Pt was encouraged to continue any supportive care measures for management of her symptoms. * Follow Up: 1 Week * * Sign off status: Completed true * Provider: Yudy Mars MD Date: 0 02/02/2025 Generated for Torres bullock/Radha/eTransmitting on: 1 10:22 AM EDT History and Physical Notes * HPI (History of Present Illness) Category Sub-Category Detail Notes Category Not es gen Gen 44yo female come s in for a nonhealing spot in her left armpit. Pt has a history of HS. Pt explained this spot appeared 2 months ago and grew to be bigger than a cutie orange . Pt went to the ER one month ago for an I&D. Pt explained the area had significant drainage and the ED left the area open to continue draining. Pt was placed on Bactrim and clindamycin. Pt saw her general surgeon one week later and was switched to Linezolid. Pt explained the surgeon placed and oil based gauze with sterile dressin and told her to finish her course of Linezolid. Pt reports no resolution after finishing her antibiotic course. Her surgeon scheduled her to be seen at a facility for evaluation by Infectious Disease, Dermatology, and Plastic Surgery. Appointment was scheduled for January 20 and pt had to reschedule for February 15. Pt explains the area has continued to drain thick green discharge. Pt changes her dressings twice per day when they are soaked through. Pt explains the area has flattened out since the I&D but never stopped draining. Pt explains she feel exquisite pain in the area when pressure is applied by her arm resting. Pt also reports worsening chills at night since the I&D. Pt denies fevers, night sweats, or body aches. Pt explains she is typically placed on Clindamycin for her HS flares and it clears the infection. Pt was hospitalized roughly 8 weeks ago for vertigo and underwent several rounds of Clinda for an HS flare. Pt denies any treatment since finishing Linezolid. Pt explains her vertigo symptoms have returned recently but are not as severe as they were before her hospitalization. Pt has no other concerns today. Examination Category Sub-Category Detail Notes Category Not es General Examination Heart: Regular Rate and Rhythm, no murmur, rubs or gallops Lungs: LCTAB, No wheezes, c rackles or rhonchi, Good air movement, Extremities: Left underarm: davon ened boil (roughly 2 inch diameter) that began bleeding when Bandaid was removed, area is extremely tender to touch. General Appearance: uncomfortable due to pain Chest: normal shape and exp ansion General Pleasant and Coopera tive
--- OUTSIDE RECORDS SUMMARY | 2025-02-09 05:45 | XMS_ITS ---
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 Role Phone Owen Mars Primary Care Provider Deja Camrichael Unavailable [phone] Allergies Allergen (clinical drug ingredient) Drug/Non Drug Allergy documented on EMR Reaction Allergy Type Onset Date Status Penicillin Unknown Drug Allergy Active tetracycline Tetracycline Unknown Drug Allergy A ctive REASON FOR VISIT Follow up for HS Medications Medication SIG (Take, Route, Frequency, Duration) Notes Start Date End Date Status Advair HFA 115-21 MCG/ACT INHALE TWO PUF FS BY MOUTH TWICE DAILY - RINSE MOUTH AFTER USE-; Duration: 30 Active Potassium Chloride ER 10 mEq TAKE ONE CA PSULE BY MOUTH EVERY DAY; Duration: 30 Active Mupirocin 2 % 1 application Externally Twice a day; Duration: 20 days 02/02/2025 Active hydroCHLOROthiazide 25 MG 1 tablet in morning Orally Once a day; Duration: 30 days 02/02/2025 Active Levocetirizine Dihydrochloride 5 mg TAKE ONE TABLET BY MOUTH EVERY EVENING; Duration: 30 Active buPROPion HCl ER (XL) 150 MG 1 tab(s) or ally every 24 hours; Duration: 30 days Active Ondansetron 4 MG 1 tab(s) orally ever y 6 hours; Duration: 7 days 07/06/2024 Active Montelukast Sodium 10 mg TAKE ONE TABLET BY MOUTH EVERY DAY; Duration: 30 Active Escitalopram Oxalate 20 mg TAKE ONE TABL ET BY MOUTH EVERY DAY; Duration: 30 Active Atenolol 50 MG 1/2 tab Orally Once a day; Duration: 30 days 12/14/2024 Active NURTEC ODT 75 MG 1 TAB(S) ORALLY ONCE 12/31/2021 Active Omeprazole 40 MG 1 cap(s) orally once a day; Duration: 30 days Active Nyamyc 300758 UNIT/GM 1 alden applied topi kailey 3 times a day; Duration: 14 days prn 01/06/2024 Active Fluticasone Propionate 50 MCG/ACT as directed in each nostril once a day; Duration: 30 day(s) Active Mupirocin 2 % 1 alden applied topica lly 3 times a day; Duration: 7 days 05/13/2024 Active HUMIRA 40 MG/0.8 ML DIRECTED SUBCUTANEOUSLY EVERY WEEK Active Chlorhexidine Gluconate 4% 1 ALDEN APPLIED TOPICALLY ONCE; Duration: 1 DAY(S) prn 09/30/2018 Active Meclizine HCl 12.5 MG 1 tablet as needed Orally daily Active Sulfamethoxazole-Trimethopri m 800-160 MG 1 tablet Orally twice a day; Duration: 10 days 02/09/2025 Active Ondansetron 4 MG 1 tablet on the tong ue and allow to dissolve Orally twice a day; Duration: 10 days 02/09/2025 Active Social History Tobacco Use: Social History Observation Description Date Details (start date - stop date) Former Smoker NA - NA Smoking: Question Answer Notes Are you a: former smoker How long has it been since you last smoked? 1-5 years Vital Signs Temperature 98.0 degrees Fahrenheit 02/10/20 25 Heart Rate 84 /min 02/09/2025 Blood pressure systolic 110 mm Hg 02/10/20 25 Blood pressure diastolic 68 mm Hg 025 Height 5 ft 4 in in 02/09/2025 Weight 191 lbs 02/09/2025 BMI 32.78 kg/m2 02/09/2025 Encounters Encounter Location Date Provider Diagnosis [facility] [address] [place] [address] 02/09/2025 Owen Mars MRSA infection A49.0 2 ; Hidradenitis suppurativa L73.2 and Vertigo R42 Assessments Encounter Date Diagnosis (ICD Code) Assessment Notes Treatment Notes Treatment Clinical Notes Section Notes 02/09/2025 MRSA infection (ICD-10 - A49.02) Pt was advised to take the full course of her antibiotics. Pt was prescribed Zofran to be taken with Bactrim due to history of GI upset on the medication. Pt was advised to continue cleaning the area and applying dry dressings for drainage. Pt was told to f/u in 2 weeks to reassess or sooner if she has worsening concerns. Overall patient has improved with most other spots with the Orbactiv therapy. I still think she needs MRSA coverage to help prevent reinfection and from the larger spot. Has appointment with [facility] near the end of the month, Bactrim until that appointment. 02/09/2025 Hidradenitis suppurativa (ICD-10 - L73.2) Pt was placed on Bactrim for 10 days of therapy for infection management. Pt has an appointment with Infectious Disease on Feb 15. Pt was encouraged to keep and attend that appointment for further management of her condition. Pt was told to f/u in 2 weeks to reassess or sooner if she has worsening concerns. 02/09/2025 Vertigo (ICD-10 - R42) Vertigo is much improved with thiazide diuretics. Has been able to get out and do some things. No change in this therapy Plan Of Treatment Medication Medication Name Sig Start Date Stop Date Notes Sulfamethoxazole-Trimethopri m 800-160 MG 1 tablet Orally twice a day; Duration: 10 days 02/09/2025 Ondansetron 4 MG 1 tablet on the tong ue and allow to dissolve Orally twice a day; Duration: 10 days 02/09/2025 Treatment Notes Assessment Notes MRSA infection Pt was advised to take the full course of her antibiotics. Pt was prescribed Zofran to be taken with Bactrim due to history of GI upset on the medication. Pt was advised to continue cleaning the area and applying dry dressings for drainage. Pt was told to f/u in 2 weeks to reassess or sooner if she has worsening concerns. Overall patient has improved with most other spots with the Orbactiv therapy. I still think she needs MRSA coverage to help prevent reinfection and from the larger spot. [facility] near the end of the month, Bactrim until that appointment. Hidradenitis suppurativa Pt was placed o n Bactrim for 10 days of therapy for infection management. Pt has an appointment with [facility] on Feb 15. Pt was encouraged to keep and attend that appointment for further management of her condition. Pt was told to f/u in 2 weeks to reassess or sooner if she has worsening concerns. Vertigo Vertigo is much improved with thiazide diuretics. Has been able to get out and do some things. No change in this therapy Next Appt Details Follow Up: 2 Weeks, Reason: Provider Name:Owen Mars, 03/23/2025 12:00:00 PM, [address], [address], [place], [address], Progress Notes * Napoleon GUO LDOB:[birth year] (44 yo F)Acc No.[id number]:02/09/2025 Progress Notes Patient: Napoleon BARONE Provider: Yudy Mars MD :1980 A ge:44 Y S ex:Female Date:02/09/2025 Address:[address] [place], [place] [id number] Subjective: * Chief Complaints: * 1 . Follow up for HS. * HPI: g en: Gen [age]yo female comes in following up on HS. Pt underwent Orbactiv infusion treatment. Pt explains the infusion treatment helped her other HS spots open up and core themselves and they are doing better. Pt explains the large spot in her left armpit has gotten larger. Pt explains the area is still draining at the same rate. Pt explains she has still been changing her bandages twice daily when soaked through. Pt described the drainage as thick green/yellow and no blood present. Pt denies fever, chills, and body aches. Pt explains her night sweats have gotten worse. Pt has also noticed a red streak/track marycarmen coming from the area. Pt has not been applying Mupirocin due to burning at the site. Pt denies any other new symptoms or concerns. Pt was also placed on HCTZ for her Vertigo and reports great relief of her symptoms. Pt has no other concerns today.. * Medical History: A llergies, Asthma, Depression, Crohns disease - followed by Dr Sams in [place] - colonoscopy 09/10 with tubular adenomas, HTN, Hidradenitis supp., MRSA LT EAR. * Surgical History: c -section , T&A , septoplasty , colonoscopy , tubal ligation , Appendectomy 08/2018. * Hospitalization/Major Diagno stic Procedure: a cathryn , Crohns , Dizziness 11/2024. * Family History: F ather: alive, diagnosed with Hypertension, Heart Disease. M other: , diagnosed with Hypertension, Diabetes. P aternal Grand Father: . P aternal [...] orally once a day , Taking Nyamyc 343903 UNIT/GM Powder 1 alden applied topically 3 times a day , Notes to Pharmacist: prn, Taking Fluticasone Propionate 50 MCG/ACT Suspension as directed in each nostril once a day , Taking Mupirocin 2 % Ointment 1 alden applied topically 3 times a day , Taking Ondansetron 4 MG Tablet Disintegrating 1 tab(s) orally every 6 hours , Taking Montelukast Sodium 10 mg [...] CAPSULE BY MOUTH EVERY DAY , Taking Mupirocin 2 % Ointment 1 application Externally Twice a day , Taking hydroCHLOROthiazide 25 MG Tablet 1 tablet in the morning Orally Once a day , Taking Levocetirizine Dihydrochloride 5 mg Tablet TAKE ONE TABLET BY MOUTH EVERY EVENING , Medication List reviewed and reconciled with the patient * Allergies: P enicillin, Tetracycline: Allergy. Objective: * Vitals: N urse: be, Pain: 5, Temp: 98.0, RR: 16, HR: 84, BP: 110/68, Ht: 5 ft 4 in, Wt: 191, BMI:32.78. * Examination: G eneral Examination: General P leasant and Cooperative, NAD on RA,. Chest: n ormal shape and expansion. Heart: R egular Rate and Rhythm, no murmur, rubs or gallops. Lungs: L CTAB, No wheezes, crackles or rhonchi, Good air movement,. Abdomen: S oft, NTND, BSNA, No organomegaly or peritoneal signs.. Skin: L eft armpit: large HS lesion present, draining purulent material, surrounding erythema present, several previous HS lesion scars present in the surrounding area.. General Appearance: N AD, pleasant. Assessment: * Assessment: 1. M RSA infection - A49.02 (Primary) 2 . H idradenitis suppurativa - L73.2? 3. V ertigo - R42 Plan: * Treatment: 2. H idradenitis suppurativa Notes: Pt was placed on Bactrim for 10 days of therapy for infection management. Pt has an appointment with [facility] on Feb 15. Pt was encouraged to keep and attend that appointment for further management of her condition. Pt was told to f/u in 2 weeks to reassess or sooner if she has worsening concerns. 3. V ertigo Notes: Vertigo is much improved with thiazide diuretics. Has been able to get out and do some things. No change in this therapy * Follow Up: 2 Weeks * * Sign off status: Completed true * Provider: Yudy Mars MD Date: 0 02/09/2025 Generated for Torres bullock/Radha/Maxim on: 1 10:22 AM EDT History and Physical Notes * HPI (History of Present Illness) Category Sub-Category Detail Notes Category Not es gen Gen 44yo female come s in following up on HS. Pt underwent Orbactiv infusion treatment. Pt explains the infusion treatment helped her other HS spots open up and core themselves and they are doing better. Pt explains the large spot in her left armpit has gotten larger. Pt explains the area is still draining at the same rate. Pt explains she has still been changing her bandages twice daily when soaked through. Pt described the drainage as thick green/yellow and no blood present. Pt denies fever, chills, and body aches. Pt explains her night sweats have gotten worse. Pt has also noticed a red streak/track marycarmen coming from the area. Pt has not been applying Mupirocin due to burning at the site. Pt denies any other new symptoms or concerns. Pt was also placed on HCTZ for her Vertigo and reports great relief of her symptoms. Pt has no other concerns today. Examination Category Sub-Category Detail Notes Category Not es General Examination Heart: Regular Rate and Rhythm, no murmur, rubs or gallops Lungs: LCTAB, No wheezes, c rackles or rhonchi, Good air movement, Abdomen: Soft, NTND, BSNA, No organomegaly or peritoneal signs. General Appearance: NAD, pleasant Skin: Left armpit: large H S lesion present, draining purulent material, surrounding erythema present, several previous HS lesion scars present in the surrounding area. Chest: normal shape and exp ansion General Pleasant and Coopera tive, NAD on RA,
--- OUTSIDE RECORDS SUMMARY | 2025-02-15 13:30 | XMS_ITS | Encounter Summary ---
Author Organization [facility] Address [address] [place] [address] Care Team Providers Care Qc Analyst Name Role Phone Owen Mars MD Primary Care Provider [phone] Reason for Referral * Consultation (Routine) - Authorized Specialty Diagnoses / Procedures Referred By Vane manzanares Referred To Contact Diagnoses Hidradenitis suppurativa Piyush Mina MD [address] [place] [phone] Phone: tel: fax: Referral ID Status Reason Start Date Expiration Date V isits Requested Visits Authorized [id number] Authorized 02/15/2025 08/17/2026 1 1 Reason for Visit * Consultation (Routine) - Closed Specialty Diagnoses / Procedures Referred By Vane manzanares Referred To Contact Infectious Diseases Diagnoses Hidradenitis suppurativa Angel Edward MD [address] [place] [id number] Phone: tel: fax: Referral ID Status Reason Start Date Expiration Date V isits Requested Visits Authorized [id number] Closed Specialty Services Required 01/06/2025 07/08/2026 1 1 Encounter Details Date Type Department Care Team (Late st Contact Info) Description 02/15/2025 1:30 PM EDT Office Visit [address] [phone] Piyush Mina MD [address] [facility] [address] [place] [address] Hidradenitis suppurativa (Primary Dx) Social History Tobacco Use Types Packs/Day Years Used Date Smoking Tobacco: Former Cigarettes 1 15 0 05/19/2006 - 05/19/2021 Passive Smoke Exposure: Never Smokeless Tobacco: Never Tobacco Cessation:Counseling Given: Not Answered Alcohol Use Standard Drinks/Week Comments Yes 0 (1 standard drink = 0.6 oz pure alcohol) Alcoholic Drinks/day: Occasional alcohol use PHQ-2 Answer Date Recorded Patient Health Questionnaire-2 Score 0 02/15/2025 PHQ-9 Answer Date Recorded Patient Health Questionnaire-9 Score 0 02/15/2025 Comments No Sex and Gender Information Value Date Recorded Sex Assigned at Female 08/30/2022 10:37 AM EDT Legal Sex Female 6:44 PM EDT Gender Identity Female 08/30/2022 10:37 AM EDT Sexual Orientation Not on file documented as of this encounter Last Filed Vital Signs Vital Sign Reading Time Taken Comments Blood Pressure 97/74 02/15/2025 1:29 PM EDT Pulse 83 02/15/2025 1:29 PM EDT Temperature 36.8 C (98.2 F) 02/15/2025 1:29 PM EDT Respiratory Rate - - Oxygen Saturation 95% 02/15/2025 1:29 PM EDT Inhaled Oxygen Concentration - - Weight 87 kg (191 lb 12.8 oz) 02/15/2025 1:29 PM EDT Height 162.6 cm (5' 4 ) 02/15/2025 1:29 PM EDT Body Mass Index 32.92 02/15/2025 1:29 PM EDT documented in this encounter Functional Status * Over the past 2 weeks, how often have you been bothered by any of the following problems? Question Answer Date of Assessment Author Little interest or pleasure in doing things Not at all 02/15/2025 1:28 PM EDT Samir Damon Feeling down, depressed, or hopeless Not at all 02/15/2025 1:28 PM EDT Samir Damon Patient Health Questionnaire -2 Score 0 02/15/2025 1:28 PM EDT Samir Damon * Question Answer Date of Assessment Author Trouble falling or staying asleep, or sleeping too much Not at all 02/15/2025 1:28 PM EDT Samir Damon Feeling tired or having simi le energy Not at all 02/15/2025 1:28 PM EDT Samir Damon Poor appetite or overeating Not at all 02/15/2025 1: 28 PM EDT Samir Damon Feeling bad about yourself - or that you are a failure or have let yourself or your family down Not at all 02/15/2025 1:28 PM EDT Samir Wang Trouble concentrating on thi ngs, such as reading the newspaper or watching television Not at all 02/15/2025 1:28 PM TRUPTIT Samir Damon Moving or speaking so slowly that other people could have noticed? Or the opposite - being so fidgety or restless that you have been moving around a lot more than usual. Not at all 02/15/2025 1:28 PM Samir Boyle Thoughts that you would be b rudy off or hurting yourself in some way Not at all 02/15/2025 1:28 PM Samir Boyle Patient Health Questionnaire -9 Score 0 02/15/2025 1:28 PM EDT Samir Damon * How difficult have these problems made it for you to do your work, take care of things at home, or get along with other people? Answer Date of Assessment Author Not difficult at all 02/15/2025 1:28 PM EDT Samir Wang documented as of this encounter Miscellaneous Notes * Progress Notes - Jose Toro, PROP SAWYER - 02/15/2025 1:30 PM EDT Images from the original note were not included. INFECTIOUS DISEASE CLINIC: NEW PATIENT VISIT HPI: Napoleon Guo is a 44 y.o. female with a past history of Asthma, crohn's (prior on Humira), HS, who presents to the ID clinic due to HS flare with abscess. She was being [facility] by [facility]. She saw rheumatology for same issue in June 2023 who prescribed Hibiclens, steroids and referred her to dermatology. She has had several surgeries to attempt to correct her HS. Most recently on 07/03/[address] Edmonds at . Patient recently presented to ED on 12/31/24 with concern for fluctuant lesion under left arm. She was stable, with normal vitals. She had modest leukocytosis, and US reveled an abscess which was drained bedside, producing pus, which was sent for culture and grew out MRSA. She was discharged on PO clinda as well as clinda wash and sent to follow up with her surgeon, Dr. Edward. She was seen in 's office on 01/04 where it was noted the cultures showed clida resistance. Patient was switched to bactrim. The area in question appeared to be drained though still inflamed. He noted multiple areas of pustules and some other possible subcutaneous collections. He made referrals to ID, dermatology and plastic surgery, gave her a course of linezolid. Interval History: Today patient reports that she has dealt with HS for several years. Has followed with Dermatology in the past, last visit several years ago. Has had issues getting in to a provider that will accept her insurance. She reports that she initially had some improvement in her axillary lesions after the operation in 2022, however over the past 6 months or so, she noticed an recurrence of lesions in herL axilla. She mentions that the wound is still open even after drainage 1.5 months ago. May have gotten bigger. Has thick, yellow, foul-smelling drainage in that area requiring adhesive bandages. Shementions that she did not actually end up taking the linezolid as there were concerns for DDI with her antidepressants. She went for follow up with her PCP a few weeks ago and given a dose of IV oritavancin. Feels like this has helped reduce any new lesions. Lesions are present in her underarms, breast, stomach, and legs. Has constant itching and intermittent chills without fever. Has tried several course of abx in the past with MRSA decolonization. Has tried to improve her diet by reducing pop, sugars and increasing water intake. ROS: 14 systems reviewed and negative except where noted above PMH: Past Medical History[1] PSH: Surgical History[2] FH: Family History[3] SH: Lives in [place], [place] with . Does have indoor dogs. Has grown children. Nicotine: Denies Alcohol: Denies Substance Use: Denies Sexual contact: Monogamous with only MEDICATIONS: Current Medications[4] Visit Vitals BP 97/74 Pulse 83 Temp 36.8 ??C (98.2 ??F) (Oral) Ht 1.626 m (5' 4 ) Wt 87 kg (191 lb 12.8 oz) SpO2 95% BMI 32.92 kg/m?? OB Status Having periods Smoking Status Former BSA 1.98 m?? EXAM: Physical Exam Constitutional: Appearance: Normal appearance. She is obese. HENT: Head: Normocephalic. Eyes: General: No scleral icterus. Conjunctiva/sclera: Conjunctivae normal. Cardiovascular: Rate and Rhythm: Normal rate and regular rhythm. Pulses: Normal pulses. Heart sounds: Normal heart sounds. Pulmonary: Effort: Pulmonary effort is normal. Breath sounds: Normal breath sounds. Abdominal: Palpations: Abdomen is soft. Musculoskeletal: Right lower leg: No edema. Left lower leg: No edema. Skin: General: Skin is warm. Capillary Refill: Capillary refill takes less than 2 seconds. Findings: Lesion present. Comments: Several erythematous lesions visualized on her abdomen and L axilla. Covered with dressings. Multiple L axilla tracts with comedone appearing lesions and mucopurulent drainage. Does still have erythema/drainage around previously drained abscess. Neurological: Mental Status: She is alert and oriented to person, place, and time. Psychiatric: Mood and Affect: Mood normal. Behavior: Behavior normal. Thought Content: Thought content normal. Judgment: Judgment normal. LABS: Labs were reviewed MICRO: Results No results found for the last 48 hours. IMAGING: N/A ASSESSMENT: Napoleon Guo is a 44 y.o. female with a past history of Asthma, crohn's (prior on Humira), HS, who presents to the ID clinic due to HS flare with abscess. She has struggled with HS for several years and has been managed by several specialists including dermatology, rheumatology, and plastic surgery. She has had several surgeries to attempt to correct her HS. Most recently on 07/03/22 underwent excision of skin and subcutaneous tissue of B/L axillae with Dr. Edmonds at . She has completed several courses of PO antibiotics and MRSA decolonization without improvement. Recently presented to ED 12/31/24 for L underarm lesion which was ultimately drained with cultures positive for MRSA. Initially prescribed clindamycin and later switched to Bactrim due to noted resistance. Given continued inflammation, she was referred to ID, dermatology, and plastic surgery. She was recently given a doseof IV oritavancin by her PCP Dr. Mars with some reduction in new lesions. As HS is a chronic, inflammatory dermatological condition, this would be best managed by Dermatology. Although antibiotics are helpful for secondary skin infections, they are not the mainstay of treatment. L axilla lesions seem to still appear infectious, so will start trial of antibiotics as below. May also benefit from additional MRSA decolonization. Patient does not want to pursue further surgery at this time. Recommendations: - Discussed that mainstay management is per dermatology. Strongly recommended to follow up with Dermatology for further evaluation and treatment - Will trial doxycycline 100 mg PO BID for 3 months - Repeat MRSA decolonization. Topical mupirocin and CHG baths ordered - Follow up 3 months Jose Toro APRN [address] [id number] [1] Past Medical History: Diagnosis Date Anxiety Conversions - Other Abdominal Pain Conversions - Other Crohn's Disease Of Small Intestine Conversions - Other Diarrhea (Symptom) Crohn disease (CMS/HCC) Dental disease permanent retainer bottom teeth Low back pain Personal history of other diseases of the respiratory system Personal history of asthma [2] Past Surgical History: Procedure Laterality Date APPENDECTOMY SECTION, LOW TRANSVERSE N/A Section from [facility] CHOLECYSTECTOMY N/A Cholecystectomy from [facility] COLONOSCOPY N/A Complete Colonoscopy from [facility] EAR SURGERY N/A Ear Surgery from [facility] SINUS SURGERY N/A Sinus Surgery from [facility] TONSILECTOMY, ADENOIDECTOMY, BILATERAL MYRINGOTOMY AND TUBES N/A Tonsillectomy With Adenoidectomy from [facility] TUBAL LIGATION N/A Tubal Ligation from [facility] [3] Family History Problem Relation Name Age of Onset Colon polyps Father Hypertension Mother Zhanna Arthritis Mother Zhanna Asthma Mother Zhanna Autoimmune disease Mother Zhanna Diabetes Mother Zhanna Heart disease Mother Zhanna Miscarriages / Stillbirths Mother Zhanna Obesity Mother Zhanna Recurrent Infections Mother Zhanna Skin Infections Mother Zhanna [4] Current Outpatient Medications: Adalimumab 40 MG/0.4ML Pen-injector Kit, 0.4 mL (40 mg)., Disp: , Rfl: Advair HFA 115-21 MCG/ACT inhaler, Inhale 2 puffs., Disp: , Rfl: atenolol (Tenormin) 50 MG tablet, Take 25 mg by mouth 1 (one) time each day., Disp: , Rfl: buPROPion XL (Wellbutrin XL) 150 MG 24 hr tablet, Take 1 tablet (150 mg) by mouth 1 (one) time eachday., Disp: , Rfl: cetirizine (ZyrTEC) 10 MG tablet, Take 1 tablet (10 mg) by mouth 1 (one) time each day., Disp: , Rfl: chlorhexidine (Hibiclens) 4 % external liquid, Apply topically 1 (one) time each day if needed for wound care., Disp: 3790 mL, Rfl: 3 clotrimazole (Lotrimin AF) 1 % cream, Apply to left axilla twice daily., Disp: 30 g, Rfl: 0 ergocalciferol (Vitamin D-2) 1.25 MG (55500 UT) capsule, Take 1 capsule (50,000 Units) by mouth 1 (one) time per week. Takes on , Disp: , Rfl: escitalopram (Lexapro) 20 MG tablet, Take 1 tablet (20 mg) by mouth 1 (one) time each day., Disp: ,Rfl: Humira, 2 Pen, 40 MG/0.4ML Auto-injector Kit, INJECT 40 MG (0.4 ML) SUBCUTANEOUSLY WEEKLY, Disp: , Rfl: hydroCHLOROthiazide (HYDRODiuril) 25 MG tablet, Take 1 tablet by mouth every morning., Disp: , Rfl: montelukast (Singulair) 10 MG tablet, Take 1 tablet (10 mg) by mouth every night., Disp: , Rfl: omeprazole (PriLOSEC) [address] capsule, Take 1 capsule (40 mg) by mouth 1 (one) time each day., Disp: , Rfl: ondansetron ODT (Zofran-ODT) 4 MG disintegrating tablet, 1 tablet (4 mg)., Disp: , Rfl: potassium chloride CR (Klor-Con M10) 10 MEQ ER tablet, Take 1 tablet (10 mEq) by mouth 1 (one) timeeach day. Do not crush or chew., Disp: , Rfl: spironolactone (Aldactone) 100 MG tablet, Take 1 tablet (100 mg) by mouth 2 (two) times a day., Disp: , Rfl: doxycycline (Vibramycin) 100 MG capsule, Take 1 capsule by mouth 2 times a day. Take with at least 8 ounces (large glass) of water, do not lie down for 30 minutes after, Disp: 180 capsule, Rfl: 0 mupirocin (Bactroban) 2 % ointment, For decolonization, Disp: 30 g, Rfl: 2 Cosigned by Piyush Mina MD at 02/15/2025 2:42 PM EDT Associated attestation - Piyush Mina MD - 02/15/2025 2:42 PM EDT I saw and evaluated the patient with the fellow. I discussed the case with the fellow and agree with the findings and plan as documented. Electronically Signed by: Piyush Mina MD - 02/15/2025 - 2:42 PM I have spent greater than 65 minutes performing the following components of the encounter (on the day of the encounter): reviewing history, examining the patient, reviewing imaging and/or labs, echo,ECG and/or other imaging results, counseling the patient and family/caregiver, communicating with other health day care aide and entering clinical information in the EHR. Greater than 50% of thetime spent on the encounter was [id number] providing direct patient care, counseling for the patient/caregiver, and care coordination. documented in this encounter Plan of Treatment Upcoming Encounters Date Type Department Care Team (Late st Contact Info) Description 05/02/2025 11:30 AM EST Office Visit [facility] [address] [place] [id number] Piyush Mina MD [address] [facility] [address] [place] [address] Scheduled Referrals Name Type Priority Associated Diagnoses Orde r Schedule Follow Up ID Outpatient Referral Routine Hidradenitis suppurativa Expected: 05/17/2025, Expires: 03/17/2026 documented as of this encounter Visit Diagnoses Diagnosis Hidradenitis suppurativa- Primary Hidradenitis documented in this encounter Additional Health Concerns Assessment Noted Time PHQ-9 Depression Total Score: 0 02/16/20 25 1:28 PM EDT A fall risk assessment has been complete d for the patient 07/02/2023 11:41 AM EST A Body Mass Index follow-up plan has been documented for the patient 02/15/2025 2:44 PM EDT documented as of this encounter Care Teams Qc Analyst Relationship Specialty Start Date End Date Owen Mars MD [address] [place] [address] PCP - General Internal Medicine 04/25/22 documented as of this encounter
--- OUTSIDE RECORDS SUMMARY | 2025-02-24 10:45 | XMS_ITS ---
Author Organization [facility] Address [address] [place] [address] Care Team Providers Care Halver Machine Operator Name Role Phone MadisynOwen Primary Care Provider [phone] Deja Carmichael Unavailable [phone] Allergies Allergen (clinical drug ingredient) Drug/Non Drug Allergy documented on EMR Reaction Allergy Type Onset Date Status Penicillin Unknown Drug Allergy Active tetracycline Tetracycline Unknown Drug Allergy A ctive REASON FOR VISIT 2 Week F/U, Wellness update Medications Medication SIG (Take, Route, Frequency, Duration) Notes Start Date End Date Status hydroCHLOROthiazide 25 MG 1 tablet in th e morning Orally Once a day; Duration: 30 days 02/02/2025 Active Ondansetron 4 MG 1 tablet on the tong ue and allow to dissolve Orally twice a day; Duration: 10 days 02/09/2025 Active Levocetirizine Dihydrochloride 5 mg TAKE ONE TABLET BY MOUTH EVERY EVENING; Duration: 30 Active Advair HFA 115-21 MCG/ACT INHALE TWO PUF FS BY MOUTH TWICE DAILY - RINSE MOUTH AFTER USE-; Duration: 30 Active buPROPion HCl ER (XL) 150 MG 1 tab(s) or ally every 24 hours; Duration: 30 days Active Potassium Chloride ER 10 mEq TAKE ONE CA PSULE BY MOUTH EVERY DAY; Duration: 30 Active Atenolol 50 MG 1/2 tab Orally Once a day; Duration: 30 days 12/14/2024 Active Escitalopram Oxalate 20 mg TAKE ONE TABL ET BY MOUTH EVERY DAY; Duration: 30 Active Fluticasone Propionate 50 MCG/ACT as directed in each nostril once a day; Duration: 30 day(s) Active Nyamyc 863321 UNIT/GM 1 alden applied topi kailey 3 times a day; Duration: 14 days prn 01/06/2024 Active Montelukast Sodium 10 mg TAKE ONE TABLET BY MOUTH EVERY DAY; Duration: 30 Active Ondansetron 4 MG 1 tab(s) orally ever y 6 hours; Duration: 7 days 07/06/2024 Active Mupirocin 2 % 1 alden applied topica lly 3 times a day; Duration: 7 days 05/13/2024 Active Chlorhexidine Gluconate 4% 1 ALDEN APPLIED TOPICALLY ONCE; Duration: 1 DAY(S) prn 09/30/2018 Active HUMIRA 40 MG/0.8 ML DIRECTED SUBCUTANEOUSLY EVERY WEEK Active Omeprazole 40 MG 1 cap(s) orally once a day; Duration: 30 days Active NURTEC ODT 75 MG 1 TAB(S) ORALLY ONCE 12/31/2021 Active Meclizine HCl 12.5 MG 1 tablet as needed Orally daily Active Immunizations Vaccine Route Administration Date Status Comme nts Flublok IM Intramuscular 02/24/2025 Administered Social History Tobacco Use: Social History Observation Description Date Details (start date - stop date) Former Smoker NA - NA Smoking: Question Answer Notes Are you a: former smoker How long has it been since you last smoked? 1-5 years Problems Problem Type SNOMED Code ICD Code Onset Dates Problem Status W/U Status Risk Notes Problem Gastroesophageal reflux disease without esophagitis (593191269) Gastroesophageal reflux disease without esophagitis (K21.9) Active confirmed Vital Signs Temperature 98.2 degrees Fahrenheit 02/25/20 25 Heart Rate 88 /min 02/24/2025 Blood pressure systolic 118 mm Hg 02/25/20 25 Blood pressure diastolic 70 mm Hg 025 Height 5 ft 4 in in 02/24/2025 Weight 190 lbs 02/24/2025 BMI 32.61 kg/m2 02/24/2025 Encounters Encounter Location Date Provider [facility] [address] [address] 02/24/2025 Owen Mars MRSA infection A49.0 2 ; Hidradenitis suppurativa L73.2 ; BMI 34.0-34.9,adult Z68.34 ; Immunization(s) administered Z23 ; Gastroesophageal reflux disease without esophagitis K21.9 ; Hypertension, essential I10 ; Crohn''s disease of both small and large intestine with rectal bleeding K50.811 and Routine medical exam Z00.00 Assessments Encounter Date Diagnosis (ICD Code) Assessment Notes Treatment Notes Treatment Clinical Notes Section Notes 02/24/2025 MRSA infection (ICD-10 - A49.02) Paucity of data about recurrent Orbactiv infusions. Given the fact she has recurrent MRSA infections and she had such a good response I think is reasonable to try another dose to see if we can continue clearing. This is medically necessary because of ongoing/current MRSA infection. Will try to get this lined up at [facility]. 02/24/2025 Hidradenitis suppurativa (ICD-10 - L73.2) She has a lesion on a wellhead pumper in [place] that takes Medicaid. She will pursue this. 02/24/2025 BMI 34.0-34.9,adult (ICD-10 - Z68.34) Weights improving. 02/24/2025 Immunization(s) administered (ICD-10 - Z23) Flu shot today 02/24/2025 Gastroesophageal reflux disease without esophagitis (ICD-10 - K21.9) Stable on current medication 02/24/2025 Hypertension, essential (ICD-10 - I10) Blood pressure under good control. Tolerating thiazides well which have really helped her vertigo 02/24/2025 Crohn''s disease of both small and large intestine with rectal bleeding (ICD-10 - K50.811) On Humira, follows with GI 02/24/2025 Routine medical exam (ICD-10 - Z00.00) Has had colonoscopies. Has had mammograms every year, now an ex-smoker, does not qualify for low-dose CT scanning. Up-to-date with Pap smears. Depression screening negative. Uses seatbelts, safe home environment Plan Of Treatment Treatment Notes Assessment Notes MRSA infection Paucity of data about recurrent Orbactiv infusions. Given the fact she has recurrent MRSA infections and she had such a good response I think is reasonable to try another dose to see if we can continue clearing. This is medically necessary because of ongoing/current MRSA infection. Will try to get this lined up at [facility]. Hidradenitis suppurativa She has a lesio n on a wellhead pumper in [place] that takes Medicaid. She will pursue this. BMI 34.0-34.9,adult Weights improving. Immunization(s) administered Flu shot to day Gastroesophageal reflux dise ase without esophagitis Stable on current medication Hypertension, essential Blood pressure u nder good control. Tolerating thiazides well which have really helped her vertigo Crohn''s disease of both sma ll and large intestine with rectal bleeding On Humira, follows with GI Routine medical exam Has had colonoscopies. Has had mammograms every year, now an ex-smoker, does not qualify for low-dose CT scanning. Up-to-date with Pap smears. Depression screening negative. Uses seatbelts, safe home environment Next Appt Details Follow Up: prn,2 Months, [place] son: Provider Name:Owen Mars, 03/23/2025 12:00:00 PM, [address] [place] [facility] [address] [facility], [address], [place], [address], Progress Notes * Napoleon GUO LDOB:[birth year] (44 yo F)Acc No.[id number]:02/24/2025 Progress Notes Patient: Napoleon BARONE Provider: Yudy Mars MD :1980 A ge:44 Y S ex:Female Date:02/24/2025 Address:[address] [place], [place] [id number] Subjective: * Chief Complaints: * 1 . 2 Week F/U. 2. Wellness update. * HPI: g en: Saw infectious disease at [facility]. Did not have a good experience. They really did not have much to offer her and told her that she needed to find a wellhead pumper. She was not happy. On the positive side she feels much better after a dose of Orbactiv 3 weeks ago. Feels like she has had no new lesions, and that her open lesions especially under her left arm are getting smaller. There is still very tender and she covers them with quite a few Band-Aids. Also here for preventative care update. Please see notes below. * Medical History: A llergies, Asthma, Depression, Crohns disease - followed by Dr Sams in [place] - colonoscopy 09/10 with tubular adenomas, HTN, [...] orally once a day , Taking Nyamyc 369500 UNIT/GM Powder 1 alden applied topically 3 [...] CAPSULE BY MOUTH EVERY DAY , Taking hydroCHLOROthiazide 25 MG Tablet 1 tablet in the morning Orally Once a day , Taking Levocetirizine Dihydrochloride 5 mg Tablet TAKE ONE TABLET BY MOUTH EVERY EVENING , Taking Ondansetron 4 MG Tablet Disintegrating 1 tablet on the tongue and allow to dissolve Orally twice a day , Discontinued Mupirocin 2 % Ointment 1 application Externally Twice a day , Discontinued Sulfamethoxazole-Trimethoprim 800-160 MG Tablet 1 tablet Orally twice a day , Medication List reviewed and reconciled with the patient * Allergies: P enicillin, Tetracycline: Allergy. Objective: * Vitals: N urse: dw, Pain: 0, Temp: 98.2, RR: 18, HR: 88, BP: 118/70, Ht: 5 ft 4 in, Wt: 190, BMI:32.61. * Examination: G eneral Examination: Heart: R egular Rate and Rhythm, no murmur, rubs or gallops. HEENT: p harynx and tonsils normal, TM's normal. Lungs: L CTAB, No wheezes, crackles or rhonchi, Good air movement,. Abdomen: S oft, NTND, BSNA, No organomegaly or peritoneal signs.. Skin: M ultiple healed boils under her arms and abdomen. No new spots. The large lesion underneath the left axilla is a little smaller at 4 cm and a nummular shaped, very superficial. P atient intact neurologically with no inducible vertigo. Assessment: * Assessment: 1. M RSA infection - A49.02 (Primary) 2 . H idradenitis suppurativa - L73.2? 3. B DE 34.0-34.9,adult - Z68.34 4 . I mmunization(s) administered - Z23 5 . G astroesophageal reflux disease without esophagitis - K21.9 6. H ypertension, essential - I10 7 . C rohn''s disease of both small and large intestine with rectal bleeding - K50.811 8 . R outine medical exam - Z00.00 Plan: * Treatment: 2. H idradenitis suppurativa Notes: She has a lesion on a wellhead pumper in [place] that takes Medicaid. She will pursue this. 3. B DE 34.0-34.9,adult Notes: Weights improving. 4. I mmunization(s) administered Notes: Flu shot today 5. G astroesophageal reflux disease without esophagitis Notes: Stable on current medication 6. H ypertension, essential Notes: Blood pressure under good control. Tolerating thiazides well which have really helped her vertigo 7. C rohn''s disease of both small and large intestine with rectal bleeding Notes: On Humira, follows with GI 8. R outine medical exam Notes: Has had colonoscopies. Has had mammograms every year, now an ex-smoker, does not qualify for low-dose CT scanning. Up-to-date with Pap smears. Depression screening negative. Uses seatbelts, safe home environment * Immunizations: Flublok : 0.5 mL (Route: Intramuscular) given by TREV Grant on Right Deltoid (Immunization(s) administered) * Procedure Codes: 9 0682 Flublok, 19869 ADMINISTRATION IMMUNIZATION ONE VACCINE * Follow Up: p rn,2 Months * * Sign off status: Completed true * Provider: Yudy Mars MD Date: Generated for Torres bullock/Radha/eTransmitting on: 10:22 AM EDT History and Physical Notes * HPI (History of Present Illness) Category Sub-Category Detail Notes Category Not es gen Saw infectious disease at [facility]. Did not have a good experience. They really did not have much to offer her and told her that she needed to find a wellhead pumper. She was not happy. On the positive side she feels much better after a dose of Orbactiv 3 weeks ago. Feels like she has had no new lesions, and that her open lesions especially under her left arm are getting smaller. There is still very tender and she covers them with quite a few Band-Aids. Also here for preventative care update. Please see notes below. Examination Category Sub-Category Detail Notes Category Not es General Examination HEENT: pharynx and tonsils normal, TM's normal Patient intact neurologically with no inducible vertigo. Heart: Regular Rate and Rhy thm, no murmur, rubs or gallops Lungs: LCTAB, No wheezes, c rackles or rhonchi, Good air movement, Abdomen: Soft, NTND, BSNA, No organomegaly or peritoneal signs. Skin: Multiple healed boil s under her arms and abdomen. No new spots. The large lesion underneath the left axilla is a little smaller at 4 cm and a nummular shaped, very superficial
--- OUTSIDE RECORDS SUMMARY | 2025-03-02 10:22 | XMS_ITS | Encounter Summary ---
Author Organization [facility] Address [address] [place] [address] Care Team Providers Care Territory Sales Manager Name Role Phone Owen Mars MD Primary Care Provider [phone] Reason for Referral * Consultation (Routine) - Authorized Specialty Diagnoses / Procedures Referred By Contac t Referred To Contact Plastic Surgery Diagnoses Hidradenitis suppurativa Owen Mars MD [address] [place] [id number] Phone: tel: fax: Referral ID Status Reason Start Date Expiration Date Visits Requested Visits Authorized [id number] Authorized Specialty Services Required 11/02/2024 05/04/2026 1 1 Encounter Details Date Type Department Care Team (Latest Contact Info) Description 11/02/2024 Community [facility] [address] [place] [address] Owen Mars MD [address] [facility] [address] [place] [address] Hidradenitis suppurativa (Primary Dx) Social History Tobacco [...] Description 05/02/2025 11:30 AM EST Office Visit [facility] [address] [place] [address] Piyush Mina MD [address] [facility] [address] [place] [address] Scheduled Referrals Name Type Priority [...] documented as of this encounter Care Teams Territory Sales Manager Relationship Specialty Start Date End Date Owen Mars MD [address] [place] [address] PCP - General Internal Medicine 04/25/22 documented as of this encounter
--- OUTSIDE RECORDS SUMMARY | 2025-03-02 10:22 | XMS_ITS | Clinical Summary ---
Author Organization [facility] Address [address] [place] [address] Care Team Providers Care Associate Data Scientist Name Role Phone Owen Mars MD Primary Care Provider [phone] Allergies Active Allergy Reactions Criticality Noted Date [...] day. Active ergocalciferol (Vitamin D-2) 1.25 MG (91600 UT) capsule Take 1 capsule (50,000 Units) by mouth 1 (one) time per week. Takes on Active cetirizine (ZyrTEC) 10 MG tablet Take 1 tablet (10 mg) by mouth 1 (one) time each day. Active montelukast (Singulair) 10 MG tablet Take 1 tablet (10 mg) by mouth every night. Active atenolol (Tenormin) 50 MG tabletIndications :Hypertension Take 25 mg by mouth 1 (one) [...] mouth 1 (one) time each day. Active ondansetron ODT (Zofran-ODT) 4 MG disintegrating tablet 1 tablet (4 mg). 11/03/19 23 Active chlorhexidine (Hibiclens) 4 % external liquidIndications :Hidradenitis suppurativa,Crohn 's disease of colon with complication (CMS/HCC),Polyart hralgia Apply topically 1 (one) time each day if needed for wound care. 3790 mL 3 07/02/19 24 Active Humira, 2 Pen, 40 MG/0.4ML Auto-injector Kit INJECT 40 MG (0.4 ML) SUBCUTANEOUSLY WEEKLY 02/09/20 25 Active hydroCHLOROthiazi de (HYDRODiuril) 25 MG tablet Take 1 tablet by mouth every morning. 02/03/20 25 Active doxycycline (Vibramycin) 100 MG capsuleIndication s:Hidradenitis suppurativa Take 1 capsule by mouth 2 times a day. Take with at least 8 ounces (large glass) of water, do not lie down for 30 minutes after 180 capsule 02/16/20 25 Active mupirocin (Bactroban) 2 % ointment For decolonization 30 g 2 02/16/20 25 Active omeprazole (PriLOSEC) [address] capsule Take 1 capsule (20 mg) by mouth 1 (one) time each day. Do not crush or chew. 2024 Discontin ued(Per Patient Report) clindamycin (Cleocin) 300 MG capsule Take 300 mg by mouth 4 (four) times a day. 2024 Discontin ued(Per Patient Report) hydroCHLOROthiazi de (Microzide) 12.5 MG capsule Take 12.5 mg by mouth 1 (one) time each day. 2024 Discontin ued(Per Patient Report) spironolactone (Aldactone) 50 MG tablet Take 1 tablet (50 mg) by mouth 1 (one) time each day. 2024 Discontin ued(Per Patient Report) folic acid (Folvite) 1 MG tablet Take by mouth 1 (one) time each day. 2024 Discontin ued(Per Patient Report) metFORMIN (Glucophage) 1000 MG tablet Take 1 tablet (1,000 mg) by mouth 2 (two) times a day. 2024 Discontin ued(Per Patient Report) potassium chloride ER (Micro-K) 10 MEQ ER capsule Take 1 capsule (10 mEq) by mouth 1 (one) time each day. 05/27/19 24 2024 Discontin ued(Per Patient Report) predniSONE (Deltasone) 5 MG tabletIndications :Hidradenitis suppurativa,Crohn 's disease of colon with complication (CMS/HCC),Polyart hralgia Take 3 tablets for 5 days, then take 2 tablets for 5 days, then take 1 tablet for 5 days. 30 tablet 07/02/19 24 2024 Discontin ued(Per Patient Report) clindamycin (Clindagel) 1 % gelIndications:Hi dradenitis suppurativa Apply 1 Application topically 2 (two) times a day. 60 g 3 07/02/19 24 2024 Discontin ued(Per Patient Report) Active Problems Problem Noted Date Diagnosed Date Hidradenitis suppurativa 06/14/2022 Overview (06/14/2022): Added automatically from request for surgery [id number] Encounters Date Type Department Care Team Description 02/15/2025 1:30 PM EDT Office Visit [facility] [address] [place] [address] Piyush Mina MD Hidradenitis suppurativa (Primary Dx) 02/15/2025 Travel 12/09/2024 Orders Only External Location [address] [place] [address] Provider, External 12/09/2024 Orders Only External Location [address] [place] [address] Provider, External 12/09/2024 Orders Only External Location [address] [place] [address] Provider, External from Last 3 Months Immunizations Immunization Administration Dates Next Due Hep B, Adolescent or Pediatric 04/30/2001,2000,09/30/2000 Influenza, recombinant, quad rivalent, injectable, preservative free 02/17/2024 TD (adult), 2 Lf tetanus tox oid, preservative free, adsorbed 06/28/1997 Family History Medical History Relation Name Comments [...] F) 02/15/2025 1:29 PM EDT Respiratory Rate 14 07/03/2022 10:30 AM EST Oxygen Saturation 95% 02/15/2025 1:29 PM EDT Inhaled Oxygen Concentration - - Weight 87 kg (191 lb 12.8 oz) 02/15/2025 1:29 PM EDT Height 162.6 cm (5' 4 ) 02/15/2025 1:29 PM EDT Body Mass Index 32.92 02/15/2025 1:29 PM EDT Plan of Treatment Upcoming Encounters Date Type Department Care Team (Late st Contact Info) Description 05/02/2025 11:30 AM EST Office Visit [facility] [address] [place] [address] Piyush Mina MD [address] [facility] [address] [place] [address] Health Maintenance Due Date Last Done Comments [facility]-HIV Screening 1982 [facility]-/Child/Adol SDOH Screenings 1982 [facility]-Varicella Vaccines (1 of 2 - 13+ 2-dose series) 1995 [facility]-DTaP,Tdap,and Td Vaccines (2 - Tdap) 06/29/1997 06/28/1997 [facility]- SDOH Screenings 2000 [facility]-Adult SDOH Screenings 2000 [facility]-Pap Smear 2003 HPV Vaccines (1 - 3-dose SCDM series) 2009 [facility]-Cervical Cancer Screening 2012 [facility]-HPV/Cotest 2012 [id number] Vaccine (3 - season) 2025 08/30/2020, 08/02/2020 [facility]-Influenza Vaccine (#1) 2025 02/17/2024 [facility]-Depression Screening 02/15/2026 02/15/2025, 01/19 [facility]-Zoster Vaccines (1 of 2) 2032 [facility]-Hepatitis B Vaccines Completed 001, 11/03/2000, 09/30/2000 [facility]-Hepatitis C Screening Completed 07/02/2023 [facility]-Obesity Intervention Completed 025, 07/02/2023, 08/30/2022, Additional history exists [facility]-HIB Vaccines Aged Out [...] Antigen Negative Negative 07/02/2023 3:34 PM EST [facility] Hepatitis C Antibody Negative Negative 07/02/2023 3:34 PM EST [facility] Hepatitis A Antibody IgM Negative Negative 07/02/2023 3:34 PM EST [facility] Hepatitis B Core Antibody IgM Negative Negative 07/02/2023 3:34 PM EST [facility] Blood Venous blood specimen / Unknown Venipuncture / Unknown 07/02/2023 1:40 PM EST 07/02/2023 1:40 PM EST Shelley Bonner David PATENT CHEMIST LAB BLOOD ORDERABLES Final Result [facility] [address] [place] [address] from Last 3 Months or Most Recently Relevant to Health [place] [address] [facility] MEDICAID Care Teams Associate Data Scientist Relationship Specialty Start Date End Date Owen Mars MD [address] [place] [address] PCP - General Internal Medicine 04/25/22
--- OUTSIDE RECORDS SUMMARY | 2025-03-02 10:22 | XMS_ITS | Encounter Summary ---
Author Organization [facility] Address [address] [place] [address] Care Team Providers Care Broadcast Checker Name Role Phone Owen Mars MD Primary Care Provider [phone] Encounter Details Date Type Department Care Team (Latest Contact Info) Description 02/15/2025 Travel Social History Tobacco Use Types Packs/Day Years [...] on file documented as of this encounter Functional Status * Over the [...] television Not at all 02/15/2025 1:28 PM EDT Samir Damon Moving or speaking so slowly that other people could have noticed? Or the opposite - being so fidgety or restless that you have been moving around a lot more than usual. Not at all 02/15/2025 1:28 PM EDT Samir Damon Thoughts that you would be b rudy off or hurting yourself in some way Not at all 02/15/2025 1:28 PM TRUPTIT Samir Damon Patient Health Questionnaire -9 Score 0 02/15/2025 1:28 PM EDT Samir Damon * How difficult have these problems made it for you to do your work, take care of things at home, or get along with other people? Answer Date of Assessment Author Not difficult at all 02/15/2025 1:28 PM EDT Samir Wang documented as of this encounter Plan of Treatment Upcoming Encounters Date Type Department Care Team (Late st Contact Info) Description 05/02/2025 11:30 AM EST Office Visit [facility] [address] [place] [address] Piyush Mina MD [address] [address] documented as of this encounter Visit Diagnoses Not on filedocumented [...] documented as of this encounter Care Teams Broadcast Checker Relationship Specialty Start Date End Date Owen Mars MD [address] [place] [address] PCP - General Internal Medicine 04/25/22 documented as of this encounter
--- OUTSIDE RECORDS SUMMARY | 2025-03-02 10:22 | XMS_ITS | Encounter Summary ---
Author Organization [facility] Address [address] [place] [address] Care Team Providers Care Construction Sales Manager Name Role Phone Owen Mars MD Primary Care Provider Encounter Details Date Type Department Care Team (Latest Contact Info) Description 03/28/2023 [facility] [address] [place] [address] Deja Carmichael, DATABASE MODELER [address] [place] [address] Crohn's disease of intestine without complication (CMS/HCC) [...] Description 05/02/2025 11:30 AM EST Office Visit [facility] [address] [place] [address] Piyush Mina MD [address] [address] documented as of this encounter Visit Diagnoses Diagnosis Crohn's disease of intestine without complication- Primary Hidradenitis suppurativa Hidradenitis documented in this encounter Additional Health Concerns Assessment Noted Time A fall risk assessment has been complete d for the patient 07/26/2022 10:13 AM EST A Body Mass Index follow-up plan has been documented for the patient 08/30/2022 10:57 AM EDT documented as of this encounter Care Teams Construction Sales Manager Relationship Specialty Start Date End Date Owen Mars MD [address] [place] [address] [place] [address] PCP - General Internal Medicine 04/25/22 documented as of this encounter
--- OUTSIDE RECORDS SUMMARY | 2025-03-02 10:23 | XMS_ITS | Patient Health Record ---
Author Organization [facility] Address [address] [place] [address] Care Team Providers Care Employee Relations Director Name Role Phone Owen Mars Primary Care Provider Deja Carmichael Unavailable [phone] Jessy Nesbitt Unavailable [phone] Migration, Provider Unavailable Unavailable Allergies Allergen (clinical drug ingredient) Drug/Non Drug Allergy documented on EMR Reaction Allergy Type Onset Date Status Penicillin Unknown Drug Allergy Active tetracycline Tetracycline Unknown Drug Allergy A ctive Results Component Value Reference Range Notes X ray : KUB Reviewed date:07/09/2024 09:40:59 AM Interpretation: Performing Lab: Notes/Report: Mammogram : Bilateral Reviewed date:07/15/2024 02:31:17 PM Interpretation: Performing Lab: Notes/Report: VITAMIN B12 (927) Reviewed date:12/23/2024 07:28:57 PM Interpretation: Performing Lab:[facility] [employer] [id number] [employer], [facility] CenterXyutVX[address] [place] Notes/Report: NON-FASTING; NON-FASTING VITAMIN B12 826 483-8745 pg/mL CBC (INCLUDES DIFF/PLT) (639 9) Reviewed date:12/23/2024 07:28:57 PM Interpretation: Performing Lab:[facility] [employer] [facility] [id number] [address] [employer], [employer] [id number] [place] Notes/Report: NON-FASTING; NON-FASTING WHITE BLOOD [...] Thousand/uL MPV 9.8 7.5-12.5 fL ABSOLUTE NEUTROPHILS 07027 0360-6140 cells/uL ABSOLUTE LYMPHOCYTES 2163 850-3900 cells/uL ABSOLUTE MONOCYTES 1031 200-950 cells/uL ABSOLUTE EOSINOPHILS 473 15-500 cells/uL ABSOLUTE BASOPHILS 51 0-200 cells/uL NEUTROPHILS 78 LYMPHOCYTES 12.8 MONOCYTES 6.1 EOSINOPHILS 2.8 BASOPHILS 0.3 MAGNESIUM (622) Reviewed date:12/16/2024 12:47:58 PM Interpretation: Performing Lab:AKIKO, [employer] [id number] [address], [employer] CharlieZtonIT[address] [place] Notes/Report: NON-FASTING; NON-FASTING; NON-FASTING MAGNESIUM 1.8 1.5-2.5 mg/dL COMPREHENSIVE METABOLIC PANE L (61635) Reviewed date:12/17/2024 12:07:15 PM Interpretation: Performing Lab:[facility] [employer] [id number] [address] [facility], [facility] CenterErmsEE[address] [place] Notes/Report: NON-FASTING; NON-FASTING; NON-FASTING GLUCOSE [...] 27 10-30 U/L ALT 26 6-29 U/L CBC (INCLUDES DIFF/PLT) (639 9) Reviewed date:12/16/2024 12:47:58 PM Interpretation: Performing Lab:[facility], [facility], [facility] CenterHykuBS[address] [place] Notes/Report: NON-FASTING; NON-FASTING; NON-FASTING WHITE [...] Thousand/uL MPV 9.9 7.5-12.5 fL ABSOLUTE NEUTROPHILS 02145 3042-6249 cells/uL ABSOLUTE LYMPHOCYTES 2820 850-3900 cells/uL ABSOLUTE MONOCYTES 945 200-950 cells/uL ABSOLUTE EOSINOPHILS 375 15-500 cells/uL ABSOLUTE BASOPHILS 65 0-200 cells/uL NEUTROPHILS 74.2 LYMPHOCYTES 17.3 MONOCYTES 5.8 EOSINOPHILS 2.3 BASOPHILS 0.4 Medications Medication SIG (Take, Route, Frequency, Duration) Notes Start Date End Date Status Fluticasone Propionate 50 MCG/ACT as directed in each nostril once a day; Duration: 30 day(s) Active Nyamyc [id number] UNIT/GM 1 alden applied topi kailey 3 times a day; Duration: 14 days prn 01/06/2024 Active hydroCHLOROthiazide 25 MG 1 tablet in morning Orally Once a day; Duration: 30 days 02/02/2025 Active Chlorhexidine Gluconate 4% 1 ALDEN APPLIED TOPICALLY ONCE; Duration: 1 DAY(S) prn 09/30/2018 Active Advair HFA 115-21 MCG/ACT INHALE TWO PUF FS BY MOUTH TWICE DAILY - RINSE MOUTH AFTER USE-; Duration: 30 Active HUMIRA 40 MG/0.8 ML DIRECTED SUBCUTANEOUSLY EVERY WEEK Active buPROPion HCl ER (XL) 150 MG 1 tab(s) or ally every 24 hours; Duration: 30 days Active Omeprazole 40 MG 1 cap(s) orally once a day; Duration: 30 days Active NURTEC ODT 75 MG 1 TAB(S) ORALLY ONCE 12/31/2021 Active Potassium Chloride ER 10 mEq TAKE ONE CA PSULE BY MOUTH EVERY DAY; Duration: 30 Active Montelukast Sodium 10 mg TAKE ONE TABLET BY MOUTH EVERY DAY; Duration: 30 Active Ondansetron 4 MG 1 tab(s) orally ever y 6 hours; Duration: 7 days 07/06/2024 Active Ondansetron 4 MG 1 tablet on the tong ue and allow to dissolve Orally twice a day; Duration: 10 days 02/09/2025 Active Meclizine HCl 12.5 MG 1 tablet as needed Orally daily Active Atenolol 50 MG 1/2 tab Orally Once a day; Duration: 30 days 12/14/2024 Active Escitalopram Oxalate 20 mg TAKE ONE TABL ET BY MOUTH EVERY DAY; Duration: 30 Active Mupirocin 2 % 1 alden applied topica lly 3 times a day; Duration: 7 days 05/13/2024 Active Levocetirizine Dihydrochloride 5 mg TAKE ONE TABLET BY MOUTH EVERY EVENING; Duration: 30 Active Immunizations Vaccine Route Administration Date Status Comme nts Flublok IM Intramuscular 02/17/2024 Administered Flublok IM Intramuscular 02/24/2025 Administered Social History Tobacco Use: Social History Observation Description Date Details (start date - stop date) Former Smoker NA - NA Smoking: Question Answer Notes Are you a: former smoker How long has it been since you last smoked? 1-5 years Problems Problem Type SNOMED Code ICD Code Onset Dates Problem Status W/U Status Risk Notes Problem Deviated nasal septum (690421746) Deviated nasal septum (J34.2) Active confirmed Problem Hidradenitis suppurativa (26035979) Hidradenitis suppurativa (L73.2) Active confirmed Problem Vitamin B12 deficiency (497128177) Vitamin B12 deficiency (E53.8) Active confirmed Problem Anxiety disorder (933168545) Anxiety disorder (F41.9) Active confirmed Problem Gastroesophageal reflux disease (814609064) GERD without esophagitis (K21.9) Active confirmed Problem Essential hypertension (29785943) Hypertension, essential (I10) Active confirmed Problem Asthma (886311980) Asthma (J45.909) Active conf irmed Problem Polycystic ovary syndrome (disorder) (307646153) PCOS (polycystic ovarian syndrome) (E28.2) Active confirmed Problem Gastroesophageal reflux disease without esophagitis (136711561) Gastroesophageal reflux disease without esophagitis (K21.9) Active confirmed Problem Crohn's disease of small AND large intestines (13499063) Crohn''s disease of both small and large intestine with rectal bleeding (K50.811) Active confirmed Problem Methicillin resistant Staphylococcus aureus infection (407318229) MRSA infection (A49.02) Active confirmed Vital Signs Heart Rate 88 /min 02/24/2025 Temperature 98.2 degrees Fahrenheit 02/24/2025 Blood pressure diastolic 70 mm Hg 02/24/2025 Height 5 ft 4 in in 02/24/2025 Blood pressure systolic 118 mm Hg 02/24/2025 Weight 190 lbs 02/24/2025 BMI 32.61 kg/m2 02/24/2025 Encounters Encounter Location Date Provider Diagnosis [facility] [address] [place] [address] 08/21/2024 Provider Migration Recurrent acute serous otitis media of both ears H65.06 and Nausea and vomiting in adult R11.2 [facility] [address] [place] [address] 04/08/2024 Jessy McNees Viral URI J06.9 and BMI 34.0-34.9,adult Z68.34 [facility] [address] [place] [address] 04/27/2024 Jessy McNees Left chronic otitis media H66.92 ; MRSA infection A49.02 and Abscess of face L02.01 [facility] [place] [address] [address] 05/13/2024 Owen Mars Cellulitis, face L03 .211 [facility] [place] [address] [address] 05/20/2024 Owen Mars Cellulitis, face L03 .211 [facility] [address] [address] 07/06/2024 Jessy McNees Nausea and vomiting in adult R11.2 ; Crohn''s disease of both small and large intestine with rectal bleeding K50.811 and Visit for screening mammogram Z12.31 [facility] [place] [address] [address] 11/02/2024 Owen Mars Insect bite (nonvenomous) of abdominal wall, initial encounter S30.861A and Hidradenitis suppurativa L73.2 [facility] [place] [address] [address] 11/09/2024 Owen Josehelio PCOS (polycystic ova dori syndrome) E28.2 and BMI 35.0-35.9,adult Z68.35 [facility] [address] [place] [address] 12/14/2024 Jessy McNees Vertigo R42 ; Hypokalemia E87.6 and Tachycardia R00.0 [facility] [address] [place] [address] 12/22/2024 Owen Madisyn Vitamin B 12 deficie ncy E53.8 ; PCOS (polycystic ovarian syndrome) E28.2 ; BMI 36.0-36.9,adult Z68.36 and Hidradenitis suppurativa L73.2 [facility] [address] [place] [address] 02/02/2025 Owen Mars Hidradenitis suppura tiva L73.2 ; MRSA infection A49.02 and Vertigo R42 [facility] [address] [place] [address] 02/09/2025 Owen Mars MRSA infection A49.0 2 ; Hidradenitis suppurativa L73.2 and Vertigo R42 [facility] [place] [address] [address] 02/24/2025 Owen Mars MRSA infection A49.0 2 ; Hidradenitis suppurativa L73.2 ; BMI 34.0-34.9,adult Z68.34 ; Immunization(s) administered Z23 ; Gastroesophageal reflux disease without esophagitis K21.9 ; Hypertension, essential I10 ; Crohn''s disease of both small and large intestine with rectal bleeding K50.811 and Routine medical exam Z00.00 [facility] [address] [place], [place] [address] 05/06/2024 Jessy McNees [facility] [place] [address] [address] 06/09/2024 Jessy McNees [facility] [address] [place] [address] 07/06/2024 Jessy McNees Breast cancer screen ing by mammogram Z12.31 [facility] [address] [facility] [address] [place], [place] [address] 12/10/2024 Jessy McNees [facility] [address] [place], [place] [address] 12/14/2024 Jessy McNees Vertigo R42 Assessments Encounter [...] try to get this lined up at [facility]. 02/09/2025 Hidradenitis suppurativa (ICD-10 - L73.2) Pt was placed on Bactrim for 10 days of therapy for infection management. Pt has an appointment with Infectious Disease on Feb 15. Pt was encouraged to keep and attend that appointment for further management of her condition. Pt was told to f/u in 2 weeks to reassess or sooner if she has worsening concerns. 02/09/2025 MRSA infection (ICD-10 - A49.02) Pt [...] from the larger spot. Has appointment with [facility] ID near the end of the month, Bactrim until that appointment. 02/24/2025 Hidradenitis suppurativa (ICD-10 - L73.2) She has a lesion on a tank pumper in [facility] that takes Medicaid. She will pursue this. 04/08/2024 Viral URI (ICD-10 - J06.9) Reassurance. [...] no improve or sooner if mood worsens 02/02/2025 Hidradenitis suppurativa (ICD-10 - L73.2) Pt was advised to keep and attend her appointment with ID on February 15. Pt was placed [...] the clinic to evaluate efficacy of infusion. 12/14/2024 Vertigo (ICD-10 - R42) 07/06/2024 Nausea and vomiting in adult (ICD-10 - R11.2) Stop probiotic, unlikely the cause but timeline of starting correlates with onset of symptoms. May be related to constipation, Crohn's. Will check KUB. [place] diet, no caffeine or fruit juice. If [...] repeated today 12/14/2024 Vertigo (ICD-10 - R42) [facility] records reviewed ENT note reviewed CTA [...] she is having as well as probiotics 12/22/2024 Vitamin B 12 deficiency (ICD-10 - [...] since last visit. Pt to continue semaglutide 07/06/2024 Visit for screening mammogram (ICD-10 - Z12.31) 12/14/2024 Tachycardia (ICD-10 - R00.0) Likely related to beta humberto withdraw. Restart atenolol at 25mg po daily. Labs drawn to r/o underlying causes. Keep appointment with cardiology but I feel symptoms are from benign positional vertigo, see plan above. RTC in 1-2 weeks. 04/27/2024 Abscess of face (ICD-10 - L02.01) Bactrim may help with some with the abscess however given it's fluctuance, tenderness and size recommend urgent referral to dermatology for I&D. Warm compresses, otherwise no squeezing or attempting to drain 02/02/2025 Vertigo (ICD-10 - R42) Pt was encouraged to continue using her Meclizine as needed for symptoms. Pt was placed on HCTZ to alleviate her Vertigo symptoms. Pt was encouraged to continue any supportive care measures for management of her symptoms. 02/09/2025 Vertigo (ICD-10 - R42) Vertigo is much improved with thiazide diuretics. Has been able to get out and do some things. No change in this therapy 02/24/2025 BMI 34.0-34.9,adult (ICD-10 - Z68.34) Weights improving. 02/24/2025 Immunization(s) administered (ICD-10 - Z23) Flu shot today 12/22/2024 Hidradenitis suppurativa (ICD-10 - L73.2) Pt will continue semaglutide for weight management and improvement for symptoms of HS. She will also continue hibaclens and mupirocin ointment to reduce risk of infection. 02/24/2025 Gastroesophageal reflux disease without esophagitis (ICD-10 [...] seatbelts, safe home environment Plan Of Treatment Pending Test Test Name [...] 12/14/2024 Next Appt Details Provider Name:Owen Mars, 03/23/2025 12:00:00 PM, [address], [place], [address], Insurance Providers Payer Name Payer Address Payer Phone Subscriber Number Group Number Insured Name Patient Relationship to Insured Coverage Start Date Coverage End Date [employer] [facility] [address] [address] [place] [phone] [id number] Napoleon Guo Self - patient is the insured Medications Administered Medication Instructions Date of Administration Dosage Notes Ceftriaxone 500 01/24/2023 500 mg Cyanocobalamin/B-12 Pt's Own Medication 12/22/2018 1 mL Dexamethasone 4mg Injection 04/08/2024 4 mg Medical (General) History Medical History History ICD Code allergies asthma depression Crohns disease - followed by Dr Sams in [place] - colonoscopy 09/10 with tubular adenomas HTN Hidradenitis supp. MRSA LT EAR Surgical History Surgery Date(Month/Year) T&A septoplasty colonoscopy tubal ligation Appendectomy 08/2018 Hospitalization History Reason Date(Month/Year) Dizziness 11/2024 Crohns above
--- OUTSIDE RECORDS SUMMARY | 2025-03-02 10:23 | XMS_ITS | Data Portability ---
Author Organization [facility] ADMIN Address [address] [place] [id number] Care Team Providers Care Route Delivery Clerk Name Role Phone [facility] Primary Care Provider [phone] Assessment Encounter Date Assessment Date Assessment LastModified [...] -continue omeprazole -EGD 03/2018 without esophageal changes. [email or web address] Not available 08/26/2022 19:44:36 02/25/2023 02/25/2023 42-year-old [...] -continue omeprazole -EGD 03/2018 without esophageal abnormality. Not available 02/25/2023 21:21:57 12/15/2023 12/15/2023 42-year-old [...] of having underlying IBS. -f/u 2-3 weeks Not available 05/17/2024 14:26:36 Plan of Treatment Reminders Order Date Submit Date Provider Last Modified By Organization Details Last Modified Time Details Appointments None recorded. Lab inflammatio n panel, serum or plasma 2023 024 [facility], [address], [address], [place], [address], 4 07:13:25 adalimumab + adalimumab Ab panel, IA, serum or plasma 2023 024 [facility], [address], [address], [place], [address], 4 07:13:23 CMP, serum or plasma 2023 024 [facility], [address], [address], [place], [address], 4 07:13:22 CBC w/ auto diff 2023 024 [facility], [address], [address], [place], [address], 4 07:13:19 vitamin D, 25-hydroxy, total, serum 2023 024 [facility], [address], [address], [place], [address], 4 07:13:26 iron + TIBC + ferritin, serum 2023 024 [facility], [address], [address], [place], [address], 4 07:13:18 Mycobacteri um tuberculosi s stimulated gamma interferon, qual, blood 2023 024 [facility], [address], [address], [place], [address], 4 07:13:24 gastrointes tinal pathogens DNA + RNA panel, MERCY+non-pro be, stool 2023 024 [facility], [address], [address], [place], [address], 4 07:13:20 calprotecti n, stool 2023 024 [facility], [address], [address], [place], [address], 4 07:13:27 unlisted lab - adalimumab drug + antibody 2023 024 [facility], [address], [address], [place], [address], 4 07:17:25 CMP, serum or plasma 2023 024 [facility], [address], [address], [place], [address], 4 07:17:24 CBC w/ auto diff 2023 024 [facility], [address], [address], [place], [address], 4 07:17:24 CMP, serum or plasma 2022 023 [facility] Not available 3 11:09:51 CBC w/ auto diff 2022 023 [facility] Not available 3 10:35:18 Referral None recorded. Procedures None recorded. Surgeries None recorded. Imaging None recorded. Medication Orders Linzess 72 mcg capsule 2023 024 [facility], [address] [place] [address] [address] [place], [id number], 5 08:31:12 Linzess 145 mcg capsule 2023 024 [facility], [address] [place] [address] [address] [place], [id number], 5 12:09:14 omeprazole 40 mg capsule,del ayed release 2023 024 [facility], [address] [place] [address] [address] [place], [id number], 5 10:20:35 Patient TargetsNo targets recorded. Patient InstructionsNo instructions recorded. Reason for Referral None Reported. Results Created Date Observation Date Name Description Value Unit Range Abnormal Flag Note LastModifiedBy Organization Detail LastModifiedTime 08/27/1908/26/2022 CBC AUTO W DIFF WBC 10.6 K/uL 4.0-10 .5 high Not Available [facility] ([facility]) [address], [place], [address], 08/26/2022 10:35:18 08/27/1908/26/2022 CBC AUTO W DIFF RBC 3.8 M/mm3 4.2-6. 4 low Not Available [facility] ([facility]) [address], [place], [address], 08/26/2022 10:35:18 08/27/1908/26/2022 CBC AUTO W DIFF HGB 11.5 gm/dL 12.5-1 6.0 low Not Available [facility] ([facility]) [address], [place], [address], 08/26/2022 10:35:18 08/27/19 23 08/26/2022 CBC AUTO W DIFF HCT 36.0 % 37.0-4 7.0 low Not Available [facility] ([facility]) [address] , [place], [address], 08/26/2022 10:35:18 08/27/19 23 08/26/2022 CBC AUTO W DIFF MCV 96.0 fL 78-100 Not Available [facility] ([facility]) [address] , [place], [address], 08/26/2022 10:35:18 08/27/19 23 08/26/2022 CBC AUTO W DIFF MCH 30.7 pg 27-31 Not Available [facility] ([facility]) [address] [address], [place], [address], 08/26/2022 10:35:18 08/27/19 23 08/26/2022 CBC AUTO W DIFF MCHC 31.9 g/dL 32-36 low Not Available [facility] ([facility]) [address] , [place], [address], 08/26/2022 10:35:18 08/27/19 23 08/26/2022 CBC AUTO W DIFF RDW 12.2 % 11.5-1 4.0 Not Available [facility] ([facility]) [address] , [place], [address], 08/26/2022 10:35:18 08/27/19 23 08/26/2022 CBC AUTO W DIFF platelet count 385 K/uL 150-45 0 Not Available [facility] ([facility]) [address] [address], [place], [address], 08/26/2022 10:35:18 08/27/19 23 08/26/2022 CBC AUTO W DIFF neutrophil% 57.5 % 43-65 Not Available [facility] ([facility]) [address], [place], [address], 08/26/2022 10:35:18 08/27/19 23 08/26/2022 CBC AUTO W DIFF lymphocyte% 29.7 % 20.5-4 5.5 Not Available [facility] ([facility]) [address], [place], [address], 08/26/2022 10:35:18 08/27/19 23 08/26/2022 CBC AUTO W DIFF monocyte% 9.0 % 5.5-11 .7 Not Available [facility] ([facility]) [address], [place], [address], 08/26/2022 10:35:18 08/27/19 23 08/26/2022 CBC AUTO W DIFF eosinophil% 3.4 % 0.9-2. 9 high Not Available [facility] ([facility]) [address] [facility], [place], [address], 08/26/2022 10:35:18 08/27/19 23 08/26/2022 CBC AUTO W DIFF basophil% 0.4 % 0.2-1. 0 Not Available [facility] ([facility]) [address], [place], [address], 08/26/2022 10:35:18 08/27/19 23 08/26/2022 CBC AUTO W DIFF neutrophil# 6.1 K/uL 2.2-4. 8 high Not Available [facility] ([facility]) [address] [facility], [place], [address], 08/26/2022 10:35:18 08/27/19 23 08/26/2022 CBC AUTO W DIFF lymphocyte# 3.2 cell/ mcL 1.3-2. 9 high Not Available [facility] ([facility]) [address] [facility], [place], [address], 08/26/2022 10:35:18 08/27/19 23 08/26/2022 CBC AUTO W DIFF monocyte# 1.0 cell/ mcL 0.3-0. 8 high Not Available [facility] ([facility]) [address] , [place], [address], 08/26/2022 10:35:18 08/27/19 23 08/26/2022 CBC AUTO W DIFF eosinophil# 0.4 cell/ mcL 0-0.2 high Not Available [facility] ([facility]) [address] , [place], [address], 08/26/2022 10:35:18 08/27/19 23 08/26/2022 CBC AUTO W DIFF basophil# 0.0 cell/ mcL 0.0-1. 0 Not Available [facility] ([facility]) [address], [place], [address], 08/26/2022 10:35:18 08/27/19 23 08/26/2022 CBC AUTO W DIFF manual differential NO Not Available [facility] ([facility]) [address], [place], [address], 08/26/2022 10:35:18 08/27/19 23 08/26/2022 COMP METAB OLIC PANEL sodium 141 mmol/ L 136-14 5 Not Available [facility] ([facility]) [address], [place], [address], 08/26/2022 11:09:51 08/27/19 23 08/26/2022 COMP METAB OLIC PANEL potassium 3.9 mmol/ L 3.6-5. 0 Not Available [facility] ([facility]) [address] [place], [address], 08/26/2022 11:09:51 08/27/19 23 08/26/2022 COMP METAB OLIC PANEL chloride 103 mmol/ L 98-107 Not Available [facility] ([facility]) [address], [place], [address], 08/26/2022 11:09:51 08/27/19 23 08/26/2022 COMP METAB OLIC PANEL carbon dioxide 30.7 mmol/ L 21.0-3 2.0 Not Available [facility] ([facility]) [address], [place], [address], 08/26/2022 11:09:51 08/27/19 23 08/26/2022 COMP METAB OLIC PANEL anion gap 11.2 Not Available [facility] ([facility]) [address] , [place], [address], 08/26/2022 11:09:51 08/27/19 23 08/26/2022 COMP METAB OLIC PANEL glucose 80 mg/dL 70-120 Not Available [facility] ([facility]) [address] , [place], [address], 08/26/2022 11:09:51 08/27/19 23 08/26/2022 COMP METAB OLIC PANEL BUN 6 mg/dL 7-18 low Not Available [facility] ([facility]) [address] , [place], [address], 08/26/2022 11:09:51 08/27/19 23 08/26/2022 COMP METAB OLIC PANEL creatinine 0.9 mg/dL 0.6-1. 3 Not Available [facility] ([facility]) [address] [place], [address], 08/26/2022 11:09:51 08/27/19 23 08/26/2022 COMP METAB OLIC PANEL glomerular filtration rate >60 mlper min 60- Not Available [facility] ([facility]) [address] , [place], [address], 08/26/2022 11:09:51 08/27/19 23 08/26/2022 COMP METAB OLIC PANEL total protein 8.1 g/dL 6.4-8. 2 Not Available [facility] ([facility]) [address], [place], [address], 08/26/2022 11:09:51 08/27/19 23 08/26/2022 COMP METAB OLIC PANEL albumin 3.2 g/dL 3.4-5. 0 low Not Available [facility] ([facility]) [address], [place], [address], 08/26/2022 11:09:51 08/27/19 23 08/26/2022 COMP METAB OLIC PANEL globulin 4.9 Not Available [facility] ([facility]) [address] , [place], [address], 08/26/2022 11:09:51 08/27/19 23 08/26/2022 COMP METAB OLIC PANEL alb/glob ratio 0.7 0.7-2 Not Available [facility] ([facility]) [address] , [place], [address], 08/26/2022 11:09:51 08/27/19 23 08/26/2022 COMP METAB OLIC PANEL calcium 8.6 mg/dL 8.5-10 .5 Not Available [facility] ([facility]) [address] , [place], [address], 08/26/2022 11:09:51 08/27/19 23 08/26/2022 COMP METAB OLIC PANEL bilirubin total 0.20 mg/dL 0.10-1 .00 Not Available [facility] ([facility]) [address] , [place], [address], 08/26/2022 11:09:51 08/27/19 23 08/26/2022 COMP METAB OLIC PANEL AST (SGOT) 16 U/L 0-37 Not Available [facility] ([facility]) [address] , [place], [address], 08/26/2022 11:09:51 08/27/19 23 08/26/2022 COMP METAB OLIC PANEL ALT (SGPT) 16 U/L 0-65 Not Available [facility] ([facility]) [address], [place], [address], 08/26/2022 11:09:51 08/27/19 23 08/26/2022 COMP METAB OLIC PANEL alk phosphatase 72 U/L 46-116 Not Available [facility] ([facility]) [address], [place], [address], 08/26/2022 11:09:51 12/15/19 24 12/16/2023 CBC WITH DIFFE RENTI AL/PL ATELE T WBC 9.9 x10e3 /uL 3.4-10 .8 normal Not Available [facility] ([facility]) [address] [place], [address], 12/24/2023 07:17:24 12/15/19 24 12/16/2023 CBC WITH DIFFE RENTI AL/PL ATELE T RBC 3.76 x10e6 /uL 3.77-5 .28 below low normal Not Available [facility] ([facility]) [address] [facility], [place], [address], 12/24/2023 07:17:24 12/15/19 24 12/16/2023 CBC WITH DIFFE RENTI AL/PL ATELE T hemoglobin 11.9 g/dL 11.1-1 5.9 normal Not Available [facility] ([facility]) [address] [place], [address], 12/24/2023 07:17:24 12/15/19 24 12/16/2023 CBC WITH DIFFE RENTI AL/PL ATELE T hematocrit 36.5 % 34.0-4 6.6 normal Not Available [facility] ([facility]) [address] [place], [address], 12/24/2023 07:17:24 12/15/19 24 12/16/2023 CBC WITH DIFFE RENTI AL/PL ATELE T MCV 97 fL 79-97 normal Not Available [facility] ([facility]) [address] [facility], [place], [address], 12/24/2023 07:17:24 12/15/19 24 12/16/2023 CBC WITH DIFFE RENTI AL/PL ATELE T MCH 31.6 pg 26.6-3 3.0 normal Not Available [facility] ([facility]) [address] [facility], [place], [address], 12/24/2023 07:17:24 12/15/19 24 12/16/2023 CBC WITH DIFFE RENTI AL/PL ATELE T MCHC 32.6 g/dL 31.5-3 5.7 normal Not Available [facility] ([facility]) [address] [place], [address], 12/24/2023 07:17:24 12/15/19 24 12/16/2023 CBC WITH DIFFE RENTI AL/PL ATELE T RDW 13.3 % 11.7-1 5.4 Not Available [facility] ([facility]) [address] [place], [address], 12/24/2023 07:17:24 12/15/19 24 12/16/2023 CBC WITH DIFFE RENTI AL/PL ATELE T platelets 421 x10e3 /uL 150-45 0 normal Not Available [facility] ([facility]) [address] [facility], [place], [address], 12/24/2023 07:17:24 12/15/19 24 12/16/2023 CBC WITH DIFFE RENTI AL/PL ATELE T neutrophils 63 % not estab. normal Not Available [facility] ([facility]) [address] [facility], [place], [address], 12/24/2023 07:17:24 12/15/19 24 12/16/2023 CBC WITH DIFFE RENTI AL/PL ATELE T lymphs 26 % not estab. normal Not Available [facility] ([facility]) [address] [place], [address], 12/24/2023 07:17:24 12/15/19 24 12/16/2023 CBC WITH DIFFE RENTI AL/PL ATELE T monocytes 7 % not estab. normal Not Available [facility] ([facility]) [address] [facility], [place], [address], 12/24/2023 07:17:24 12/15/19 24 12/16/2023 CBC WITH DIFFE RENTI AL/PL ATELE T eos 3 % not estab. normal Not Available [facility] ([facility]) [address] [facility], [place], [address], 12/24/2023 07:17:24 12/15/19 24 12/16/2023 CBC WITH DIFFE RENTI AL/PL ATELE T basos 1 % not estab. normal Not Available [facility] ([facility]) [address] [place], [address], 12/24/2023 07:17:24 12/15/19 24 12/16/2023 CBC WITH DIFFE RENTI AL/PL ATELE T immature cells UNDER [employer] Not Available [facility] ([facility]) [address] [place], [address], 12/24/2023 07:17:24 12/15/19 24 12/16/2023 CBC WITH DIFFE RENTI AL/PL ATELE T neutrophils (absolute) 6.2 x10e3 /uL 1.4-7. 0 normal Not Available [facility] ([facility]) [address] [place], [address], 12/24/2023 07:17:24 12/15/19 24 12/16/2023 CBC WITH DIFFE RENTI AL/PL ATELE T lymphs (absolute) 2.6 x10e3 /uL 0.7-3. 1 normal Not Available [facility] ([facility]) [address] [facility], [place], [address], 12/24/2023 07:17:24 12/15/19 24 12/16/2023 CBC WITH DIFFE RENTI AL/PL ATELE T monocytes(ab solute) 0.7 x10e3 /uL 0.1-0. 9 normal Not Available [facility] ([facility]) [address] [facility], [place], [address], 12/24/2023 07:17:24 12/15/19 24 12/16/2023 CBC WITH DIFFE RENTI AL/PL ATELE T eos (absolute) 0.3 x10e3 /uL 0.0-0. 4 normal Not Available [facility] ([facility]) [address] [facility], [place], [address], 12/24/2023 07:17:24 12/15/19 24 12/16/2023 CBC WITH DIFFE RENTI AL/PL ATELE T baso (absolute) 0.1 x10e3 /uL 0.0-0. 2 normal Not Available [facility] ([facility]) [address] [facility], [place], [address], 12/24/2023 07:17:24 12/15/19 24 12/16/2023 CBC WITH DIFFE RENTI AL/PL ATELE T immature granulocytes 0 % not estab. Not Available [facility] ([facility]) [address] [place], [address], 12/24/2023 07:17:24 12/15/19 24 12/16/2023 CBC WITH DIFFE RENTI AL/PL ATELE T immature grans (abs) 0.0 x10e3 /uL 0.0-0. 1 Not Available [facility] ([facility]) [address] [facility], [place], [address], 12/24/2023 07:17:24 12/15/19 24 12/16/2023 CBC WITH DIFFE RENTI AL/PL ATELE T NRBC UND[employer] Not Available [facility] ([facility]) [address] [facility], [place], [address], 12/24/2023 07:17:24 12/15/19 24 12/16/2023 CBC WITH DIFFE RENTI AL/PL ATELE T hematology comments: [employer] Not Available [facility] ([facility]) [address] [facility], [place], [address], 12/24/2023 07:17:24 12/15/19 24 12/16/2023 COMP. METAB OLIC PANEL (14) glucose 91 mg/dL 70-99 normal Not Available [facility] ([facility]) [address] [facility], [place], [address], 12/24/2023 07:17:24 12/15/19 24 12/16/2023 COMP. METAB OLIC PANEL (14) BUN 14 mg/dL 6-24 normal Not Available [facility] ([facility]) [address] [facility], [place], [address], 12/24/2023 07:17:24 12/15/19 24 12/16/2023 COMP. METAB OLIC PANEL (14) creatinine 0.79 mg/dL 0.57-1 .00 normal Not Available [facility] ([facility]) [address] [facility], [place], [address], 12/24/2023 07:17:24 12/15/19 24 12/16/2023 COMP. METAB OLIC PANEL (14) eGFR 96 mL/mi n/1.7 3 >59 normal Not Available [facility] ([facility]) [address] [facility] [place], [address], 12/24/2023 07:17:24 12/15/19 24 12/16/2023 COMP. METAB OLIC PANEL (14) BUN/creatini ne ratio 18 9-23 normal Not Available [facility] ([facility]) [address] [place], [address], 12/24/2023 07:17:24 12/15/19 24 12/16/2023 COMP. METAB OLIC PANEL (14) sodium 137 mmol/ L 134-14 4 normal Not Available [facility] ([facility]) [address] [place], [address], 12/24/2023 07:17:24 12/15/19 24 12/16/2023 COMP. METAB OLIC PANEL (14) potassium 4.7 mmol/ L 3.5-5. 2 normal Not Available [facility] ([facility]) [address] [place], [address], 12/24/2023 07:17:24 12/15/19 24 12/16/2023 COMP. METAB OLIC PANEL (14) chloride 103 mmol/ L 96-106 normal Not Available [facility] ([facility]) [address] [place], [address], 12/24/2023 07:17:24 12/15/19 24 12/16/2023 COMP. METAB OLIC PANEL (14) carbon dioxide, total 22 mmol/ L 20-29 normal Not Available [facility] ([facility]) [address] [place], [address], 12/24/2023 07:17:24 12/15/19 24 12/16/2023 COMP. METAB OLIC PANEL (14) calcium 9.2 mg/dL 8.7-10 .2 normal Not Available [facility] ([facility]) [address] [place], [address], 12/24/2023 07:17:24 12/15/19 24 12/16/2023 COMP. METAB OLIC PANEL (14) protein, total 7.4 g/dL 6.0-8. 5 normal Not Available [facility] ([facility]) [address] [place], [address], 12/24/2023 07:17:24 12/15/19 24 12/16/2023 COMP. METAB OLIC PANEL (14) albumin 4.3 g/dL 3.9-4. 9 normal Not Available [facility] ([facility]) [address] [facility], [place], [address], 12/24/2023 07:17:24 12/15/19 24 12/16/2023 COMP. METAB OLIC PANEL (14) globulin, total 3.1 g/dL 1.5-4. 5 Not Available [facility] ([facility]) [address] [place], [address], 12/24/2023 07:17:24 12/15/19 24 12/16/2023 COMP. METAB OLIC PANEL (14) bilirubin, total <0.2 mg/dL 0.0-1. 2 Not Available [facility] ([facility]) [address] [facility], [place], [address], 12/24/2023 07:17:24 12/15/19 24 12/16/2023 COMP. METAB OLIC PANEL (14) alkaline phosphatase 83 IU/L 44-121 normal Not Available [facility] ([facility]) [address] [facility], [place], [address], 12/24/2023 07:17:24 12/15/19 24 12/16/2023 COMP. METAB OLIC PANEL (14) AST (SGOT) 17 IU/L 0-40 normal Not Available [facility] ([facility]) [address] [facility] [place], [address], 12/24/2023 07:17:24 12/15/19 24 12/16/2023 COMP. METAB OLIC PANEL (14) ALT (SGPT) 15 IU/L 0-32 normal Not Available [facility] ([facility]) [address] [facility], [place], [address], 12/24/2023 07:17:24 12/15/19 24 12/22/2023 SERGE MUMAB DRUG + ANTIB SHABNAM adalimumab [...] antib odies are prese nt. Not Available [facility] [address] [facility], [place], [address], 12/24/2023 07:17:25 12/15/19 24 12/23/2023 SERGE MUMAB [...] conse quent ial.( 4-6) - Some immun [facility] is rever sible . Elimi [...] opmen t and Valid ation for Immun [facility] Testi ng of Thera peuti c Prote in Produ cts (2019 ). Not Available [facility] [address] [facility], [place], [address], 12/24/2023 07:17:25 12/15/1912/23/2023 SERGE MUMAB DRUG + ANTIB SHABNAM pdf . Not Available [facility] [address] [facility], [place], [address], 12/24/2023 07:17:25 04/20/20 24 04/21/2024 FE+TI BC+FE R iron bind.cap.(TI BC) 350 ug/dL 250-45 0 normal Not Available [facility] ([facility]) [address] [place], [address], 05/01/2024 07:13:18 04/20/20 24 04/21/2024 FE+TI BC+FE R UIBC 302 ug/dL 131-42 5 normal Not Available [facility] ([facility]) [address] [place], [address], 05/01/2024 07:13:18 04/20/20 24 04/21/2024 FE+TI BC+FE R iron 48 ug/dL 27-159 normal Not Available [facility] ([facility]) [address] [place], [address], 05/01/2024 07:13:18 04/20/20 24 04/21/2024 FE+TI BC+FE R iron saturation 14 % 15-55 below low normal Not Available [facility] ([facility]) [address] [place], [address], 05/01/2024 07:13:18 04/20/20 24 04/21/2024 FE+TI BC+FE R ferritin 36 NG/mL 15-150 normal Not Available [facility] ([facility]) [address] [place], [address], 05/01/2024 07:13:18 04/20/20 24 04/21/2024 CBC WITH DIFFE RENTI AL/PL ATELE T WBC 12.8 x10e3 /uL 3.4-10 .8 above high normal Not Available [facility] ([facility]) [address] [place], [address], 05/01/2024 07:13:19 04/20/20 24 04/21/2024 CBC WITH DIFFE RENTI AL/PL ATELE T RBC 3.75 x10e6 /uL 3.77-5 .28 below low normal Not Available [facility] ([facility]) [address] [place], [address], 05/01/2024 07:13:19 04/20/20 24 04/21/2024 CBC WITH DIFFE RENTI AL/PL ATELE T hemoglobin 11.4 g/dL 11.1-1 5.9 normal Not Available [facility] ([facility]) [address] [place], [address], 05/01/2024 07:13:19 04/20/20 24 04/21/2024 CBC WITH DIFFE RENTI AL/PL ATELE T hematocrit 36.0 % 34.0-4 6.6 normal Not Available [facility] ([facility]) [address] [place], [address], 05/01/2024 07:13:19 04/20/20 24 04/21/2024 CBC WITH DIFFE RENTI AL/PL ATELE T MCV 96 fL 79-97 normal Not Available [facility] ([facility]) [address] [place], [address], 05/01/2024 07:13:19 04/20/20 24 04/21/2024 CBC WITH DIFFE RENTI AL/PL ATELE T MCH 30.4 pg 26.6-3 3.0 normal Not Available [facility] ([facility]) [address] [place], [address], 05/01/2024 07:13:19 04/20/20 24 04/21/2024 CBC WITH DIFFE RENTI AL/PL ATELE T MCHC 31.7 g/dL 31.5-3 5.7 normal Not Available [facility] ([facility]) [address] [facility], [place], [address], 05/01/2024 07:13:19 04/20/20 24 04/21/2024 CBC WITH DIFFE RENTI AL/PL ATELE T RDW 12.6 % 11.7-1 5.4 Not Available [facility] ([facility]) [address] [facility], [place], [address], 05/01/2024 07:13:19 04/20/20 24 04/21/2024 CBC WITH DIFFE RENTI AL/PL ATELE T platelets 524 x10e3 /uL 150-45 0 above high normal Not Available [facility] ([facility]) [address] [facility], [place], [address], 05/01/2024 07:13:19 04/20/20 24 04/21/2024 CBC WITH DIFFE RENTI AL/PL ATELE T neutrophils 69 % not estab. normal Not Available [facility] ([facility]) [address] [facility], [place], [address], 05/01/2024 07:13:19 04/20/20 24 04/21/2024 CBC WITH DIFFE RENTI AL/PL ATELE T lymphs 23 % not estab. normal Not Available [facility] ([facility]) [address] [facility], [place], [address], 05/01/2024 07:13:19 04/20/20 24 04/21/2024 CBC WITH DIFFE RENTI AL/PL ATELE T monocytes 5 % not estab. normal Not Available [facility] ([facility]) [address] [facility], [place], [address], 05/01/2024 07:13:19 04/20/20 24 04/21/2024 CBC WITH DIFFE RENTI AL/PL ATELE T eos 2 % not estab. normal Not Available [facility] ([facility]) [address] [place], [address], 05/01/2024 07:13:19 04/20/20 24 04/21/2024 CBC WITH DIFFE RENTI AL/PL ATELE T basos 1 % not estab. normal Not Available [facility] ([facility]) [address] [facility], [place], [place], [address], 05/01/2024 07:13:19 04/20/20 24 04/21/2024 CBC WITH DIFFE RENTI AL/PL ATELE T immature cells UNDER GROUND MINER Not Available [facility] ([facility]) [address] [facility], [place], [address], 05/01/2024 07:13:19 04/20/20 24 04/21/2024 CBC WITH DIFFE RENTI AL/PL ATELE T neutrophils (absolute) 8.9 x10e3 /uL 1.4-7. 0 above high normal Not Available [facility] ([facility]) [address] [place], [address], 05/01/2024 07:13:19 04/20/20 24 04/21/2024 CBC WITH DIFFE RENTI AL/PL ATELE T lymphs (absolute) 2.9 x10e3 /uL 0.7-3. 1 normal Not Available [facility] ([facility]) [address] [place], [address], 05/01/2024 07:13:19 04/20/20 24 04/21/2024 CBC WITH DIFFE RENTI AL/PL ATELE T monocytes(ab solute) 0.6 x10e3 /uL 0.1-0. 9 normal Not Available [facility] ([facility]) [address] [place], [address], 05/01/2024 07:13:19 04/20/20 24 04/21/2024 CBC WITH DIFFE RENTI AL/PL ATELE T eos (absolute) 0.3 x10e3 /uL 0.0-0. 4 normal Not Available [facility] ([facility]) [address] [facility], [place], [address], 05/01/2024 07:13:19 04/20/20 24 04/21/2024 CBC WITH DIFFE RENTI AL/PL ATELE T baso (absolute) 0.1 x10e3 /uL 0.0-0. 2 normal Not Available [facility] ([facility]) [address] [facility], [place], [address], 05/01/2024 07:13:19 04/20/20 24 04/21/2024 CBC WITH DIFFE RENTI AL/PL ATELE T immature granulocytes 0 % not estab. Not Available [facility] ([facility]) [address] [facility], [place], [address], 05/01/2024 07:13:19 04/20/20 24 04/21/2024 CBC WITH DIFFE RENTI AL/PL ATELE T immature grans (abs) 0.0 x10e3 /uL 0.0-0. 1 Not Available [facility] ([facility]) [address] [facility], [place], [address], 05/01/2024 07:13:19 04/20/20 24 04/21/2024 CBC WITH DIFFE RENTI AL/PL ATELE T NRBC UNDER GR[employer]ER Not Available [facility] ([facility]) [address] [facility], [place], [address], 05/01/2024 07:13:19 04/20/20 24 04/21/2024 CBC WITH DIFFE RENTI AL/PL ATELE T hematology comments: UNDER GR[employer]ER Not Available [facility] ([facility]) [address] [place], [address], 05/01/2024 07:13:19 04/20/20 24 04/21/2024 GI PROFI LE, STOOL , PCR campylobacte r COMMEN T Test not perfo rmed. No speci men recei elvia. Not Available [facility] ([facility]) [address] [place], [address], 05/01/2024 07:13:20 04/20/20 24 04/21/2024 GI PROFI LE, STOOL , PCR C difficile toxin A/B TNP Test not perfo rmed Not Available [facility] ([facility]) [address] [place], [address], 05/01/2024 07:13:20 04/20/20 24 04/21/2024 GI PROFI LE, STOOL , PCR plesiomonas shigelloides TNP Test not perfo rmed Not Available [facility] ([facility]) [address] [place], [address], 05/01/2024 07:13:20 04/20/20 24 04/21/2024 GI PROFI LE, STOOL , PCR salmonella TNP Test not perfo rmed Not Available [facility] ([facility]) [address] [place], [address], 05/01/2024 07:13:20 04/20/20 24 04/21/2024 GI PROFI LE, STOOL , PCR vibrio TNP Test not perfo rmed Not Available [facility] ([facility]) [address] [place], [address], 05/01/2024 07:13:20 04/20/20 24 04/21/2024 GI PROFI LE, STOOL , PCR vibrio cholerae TNP Test not perfo rmed Not Available [facility] ([facility]) [address] [place], [address], 05/01/2024 07:13:20 04/20/20 24 04/21/2024 GI PROFI LE, STOOL , PCR yersinia enterocoliti ca TNP Test not perfo rmed Not Available [facility] ([facility]) [address] [place], [address], 05/01/2024 07:13:20 04/20/20 24 04/21/2024 GI PROFI LE, STOOL , PCR enteroaggreg ative E coli TNP Test not perfo rmed Not Available [facility] ([facility]) [address] [place], [address], 05/01/2024 07:13:20 04/20/20 24 04/21/2024 GI PROFI LE, STOOL , PCR enteropathog enic E coli TNP Test not perfo rmed Not Available [facility] ([facility]) [address] [place], [address], 05/01/2024 07:13:20 04/20/20 24 04/21/2024 GI PROFI LE, STOOL , PCR enterotoxige tricia E coli TNP Test not perfo rmed Not Available [facility] ([facility]) [address] [place], [address], 05/01/2024 07:13:20 04/20/20 24 04/21/2024 GI PROFI LE, STOOL , PCR shiga-toxin- producing E coli TNP Test not perfo rmed Not Available [facility] ([facility]) [address] [place], [address], 05/01/2024 07:13:20 04/20/20 24 04/21/2024 GI PROFI LE, STOOL , PCR E coli O157 TNP Test not perfo rmed Not Available [facility] ([facility]) [address] [place], [address], 05/01/2024 07:13:20 04/20/20 24 04/21/2024 GI PROFI LE, STOOL , PCR shigella/ent eroinvasive E coli TNP Test not perfo rmed Not Available [facility] ([facility]) [address] [place], [address], 05/01/2024 07:13:20 04/20/20 24 04/21/2024 GI PROFI LE, STOOL , PCR cryptosporid ium TNP Test not perfo rmed Not Available [facility] ([facility]) [address] [facility], [place], [address], 05/01/2024 07:13:20 04/20/20 24 04/21/2024 GI PROFI LE, STOOL , PCR cyclospora cayetanensis TNP Test not perfo rmed Not Available [facility] ([facility]) [address] [place], [address], 05/01/2024 07:13:20 04/20/20 24 04/21/2024 GI PROFI LE, STOOL , PCR entamoeba histolytica TNP Test not perfo rmed Not Available [facility] ([facility]) [address] [facility], [place], [address], 05/01/2024 07:13:20 04/20/20 24 04/21/2024 GI PROFI LE, STOOL , PCR giardia lamblia TNP Test not perfo rmed Not Available [facility] ([facility]) [address] [place], [address], 05/01/2024 07:13:20 04/20/20 24 04/21/2024 GI PROFI LE, STOOL , PCR adenovirus F 40/41 TNP Test not perfo rmed Not Available [facility] ([facility]) [address] [place], [address], 05/01/2024 07:13:20 04/20/20 24 04/21/2024 GI PROFI LE, STOOL , PCR astrovirus TNP Test not perfo rmed Not Available [facility] ([facility]) [address] [place], [address], 05/01/2024 07:13:20 04/20/20 04/21/2024 GI PROFI LE, STOOL , PCR norovirus GI/gii TNP Test not perfo rmed Not Available [facility] ([facility]) [address] [facility], [place], [address], 05/01/2024 07:13:20 04/20/20 24 04/21/2024 GI PROFI LE, STOOL , PCR rotavirus A TNP Test not perfo rmed Not Available [facility] ([facility]) [address] [facility], [place], [address], 05/01/2024 07:13:20 04/20/20 24 04/21/2024 GI PROFI LE, STOOL , PCR sapovirus TNP Test not perfo rmed Not Available [facility] ([facility]) [address] [facility], [place], [address], 05/01/2024 07:13:20 04/20/20 24 04/21/2024 COMP. METAB OLIC PANEL (14) glucose 89 mg/dL 70-99 normal Not Available [facility] ([facility]) [address] [facility] [place], [address], 05/01/2024 07:13:22 04/20/20 24 04/21/2024 COMP. METAB OLIC PANEL (14) BUN 8 mg/dL 6-24 normal Not Available [facility] ([facility]) [address] [facility] [place], [address], 05/01/2024 07:13:22 04/20/20 24 04/21/2024 COMP. METAB OLIC PANEL (14) creatinine 0.75 mg/dL 0.57-1 .00 normal Not Available [facility] ([facility]) [address] [facility] [place], [address], 05/01/2024 07:13:22 04/20/20 24 04/21/2024 COMP. METAB OLIC PANEL (14) eGFR 103 mL/mi n/1.7 3 >59 normal Not Available [facility] ([facility]) [address] [place], [address], 05/01/2024 07:13:22 04/20/20 24 04/21/2024 COMP. METAB OLIC PANEL (14) BUN/creatini ne ratio 11 9-23 normal Not Available [facility] ([facility]) [address] [place], [address], 05/01/2024 07:13:22 04/20/20 24 04/21/2024 COMP. METAB OLIC PANEL (14) sodium 140 mmol/ L 134-14 4 normal Not Available [facility] ([facility]) [address] [place], [address], 05/01/2024 07:13:22 04/20/20 24 04/21/2024 COMP. METAB OLIC PANEL (14) potassium 4.0 mmol/ L 3.5-5. 2 normal Not Available [facility] ([facility]) [address] [place], [address], 05/01/2024 07:13:22 04/20/20 24 04/21/2024 COMP. METAB OLIC PANEL (14) chloride 102 mmol/ L 96-106 normal Not Available [facility] ([facility]) [address] [place], [address], 05/01/2024 07:13:22 04/20/20 24 04/21/2024 COMP. METAB OLIC PANEL (14) carbon dioxide, total 26 mmol/ L 20-29 normal Not Available [facility] ([facility]) [address] [place], [address], 05/01/2024 07:13:22 04/20/20 24 04/21/2024 COMP. METAB OLIC PANEL (14) calcium 9.1 mg/dL 8.7-10 .2 normal Not Available [facility] ([facility]) [address] [place], [address], 05/01/2024 07:13:22 04/20/20 24 04/21/2024 COMP. METAB OLIC PANEL (14) protein, total 7.2 g/dL 6.0-8. 5 normal Not Available [facility] ([facility]) [address] [place], [address], 05/01/2024 07:13:22 04/20/20 24 04/21/2024 COMP. METAB OLIC PANEL (14) albumin 3.9 g/dL 3.9-4. 9 normal Not Available [facility] ([facility]) [address] [place], [address], 05/01/2024 07:13:22 04/20/20 24 04/21/2024 COMP. METAB OLIC PANEL (14) globulin, total 3.3 g/dL 1.5-4. 5 Not Available [facility] ([facility]) [address] [place], [address], 05/01/2024 07:13:22 04/20/20 24 04/21/2024 COMP. METAB OLIC PANEL (14) bilirubin, total 0.2 mg/dL 0.0-1. 2 normal Not Available [facility] ([facility]) [address] [place], [address], 05/01/2024 07:13:22 04/20/20 24 04/21/2024 COMP. METAB OLIC PANEL (14) alkaline phosphatase 99 IU/L 44-121 normal Not Available [facility] ([facility]) [address] [place], [address], 05/01/2024 07:13:22 04/20/20 24 04/21/2024 COMP. METAB OLIC PANEL (14) AST (SGOT) 14 IU/L 0-40 normal Not Available [facility] ([facility]) [address] [place], [address], 05/01/2024 07:13:22 04/20/20 24 04/21/2024 COMP. METAB OLIC PANEL (14) ALT (SGPT) 17 IU/L 0-32 normal Not Available [facility] ([facility]) [address] [facility], [place], [address], 05/01/2024 07:13:22 04/20/20 24 04/25/2024 SERGE MUMAB [...] antib odies are prese nt. Not Available [facility] [address] [facility], [place], [address], 05/01/2024 07:13:23 04/20/20 24 04/30/2024 SERGE MUMAB [...] conse quent ial.( 4-6) - Some immun [facility] is rever sible . Elimi [...] s Col 2016; 10(5) :510- 515. 3. Pouw MF, et al. Daisy Rheum Dis 2015; [...] e gonzalo cteri stics deter mined by [employer]. They have not been clear ed [...] Amend ments ) and the FDA Shala thornee docum ent, Assay Devel opmen t and Valid ation for Immun ogeni city Testi ng of Thera peuti c Prote in Produ cts (2019 ). Not Available [facility] [address] [facility], [place], [address], 05/01/2024 07:13:23 04/20/20 24 05/01/2024 SERGE MUMAB DRUG + ANTIB SHABNAM pdf . Not Available [facility] [address] [facility], [place], [address], 05/01/2024 07:13:23 04/20/20 24 04/21/2024 QUANT IFERO N-TB GOLD PLUS quantiferon incubation INCUBA TION PERFOR MED. Not Available [facility] ([facility]) [address] [facility], [place], [address], 05/01/2024 07:13:24 04/20/20 24 04/21/2024 QUANT IFERO [...] ol for the test. Not Available [facility] ([facility]) [address] [facility], [place], [address], 05/01/2024 07:13:24 04/20/20 24 04/22/2024 QUANT IFERO N-TB GOLD PLUS quantiferon TB1 Ag value 0.01 IU/mL Not Available [facility] ([facility]) [address] [facility], [place], [address], 05/01/2024 07:13:24 04/20/20 24 04/22/2024 QUANT IFERO N-TB GOLD PLUS quantiferon TB2 Ag value 0.00 IU/mL Not Available [facility] ([facility]) [address] [place], [address], 05/01/2024 07:13:24 04/20/20 24 04/22/2024 QUANT IFERO N-TB GOLD PLUS quantiferon nil value 0.00 IU/mL Not Available [facility] ([facility]) [address] [facility], [place], [address], 05/01/2024 07:13:24 04/20/20 24 04/22/2024 QUANT IFERO N-TB GOLD PLUS quantiferon mitogen value >10.00 IU/mL Not Available [facility] ([facility]) [address] [facility], [place], [address], 05/01/2024 07:13:24 04/20/20 24 04/22/2024 QUANT IFERO N-TB GOLD PLUS quantiferon- TB gold plus NEGATI VE negati ve No respo nse to M kalli bustillo is antig ens detec renee. Infec tion with M kalli bustillo is is unlik kamari, but high risk indiv idual s shoul d be consi dered for addit ional testi ng (ATS/ IDSA/ CDC Clini jesus Pract ice Guide lines , 2017) . The refer ence range is an Antig en minus Nil resul t of <0.35 IU/mL . Chemi lumin escen ce immun oassa y metho dolog y Not Available [facility] ([facility]) [address] [facility], [place], [address], 05/01/2024 07:13:24 04/20/20 24 04/21/2024 ESR-W ES+CR P sedimentatio n rate-westerg caorline 79 mm/HR 0-32 above high normal Not Available [facility] ([facility]) [address], [place], [address], 05/01/2024 07:13:25 04/20/20 24 04/21/2024 ESR-W ES+CR P C-reactive protein, quant 19 mg/L 0-10 above high normal Not Available [facility] ([facility]) [address], [place], [address], 05/01/2024 07:13:25 04/20/20 24 04/21/2024 VITAM IN [...] 1. IOM (Inst itute of Medic ine). 2009. Dieta ry refer ence intak es for calci um and D. Baldomero schmitt [place]: [facility] . 2. Maicol singh MF, Loulou pacheco [place], Marciano off-F errar i HALL, et al. Evalu ation , treat ment, and preve ntion of vitam in D defic iency : an Endoc rine Socie ty clini jesus pract ice guide line. JCEM. 2010; 96(7) :1911 -30. Not Available [facility] ([facility]) [address] [facility], [place], [address], 05/01/2024 07:13:26 04/20/20 24 04/21/2024 CALPR OTECT [...] clini kailey indic ated Not Available [facility] ([facility]) [address] [facility], [place], [address], 05/01/2024 07:13:27 04/20/20 24 04/21/2024 SPECI MEN STATU S REPOR T specimen status report COMMEN T Test not perfo rmed. No speci men recei elvia. TEST: [id number] GI Profi le, [place] , [place] [address] 5 Calpr otect in, Fecal Not Available [facility] ([facility]) [address] [facility], [place], [address], 05/01/2024 07:13:28 Result Notes None recorded. Problems Name Problem SNOMED Code Status Onset Date Resolution Date Notes Provider Name and Address Organization Details Recorded Time Crohn's disease 49997396 Active 2021 Claudine Mera [facility], [place] - [facility] & [place] 3 08:55:28 Gastroesophag eal reflux disease without esophagitis 493354916 Active 2022 Compa Yuan PA-C [address] , [place], [address] , [place] - [facility] - [place] & [place] 3 19:43:00 Chronic idiopathic constipation 36004497 Active 2023 Compa Yuan PA-C [address] , [place], [address] , [place] - [facility] & [place] 4 16:16:42 Diarrhea 08438338 Active 2023 Compa Yuan PA-C [address] , [place], [address] , [place] - [facility] & [place] 4 13:46:59 Abdominal pain 45971027 Active 2023 Compa Yuan PA-C [address] [facility], [place], [address] , JENNIFER [facility] & [place] 4 13:47:05 Problem Notes None recorded. Procedures Surgical History Date Name Laterality Status Provider Name and Address Organization Details Recorded Time 2 Colonoscopy completed Claudine RODRIGUEZ [facility] & [place] 08/26/2022 09:02:54 9 Appendectomy completed Claudine RODRIGUEZ [facility] & [place] 08/26/2022 09:02:54 5 ENT Surgery completed Claudine RODRIGUEZ [facility] & [place] 08/26/2022 09:02:54 Imaging Results None recorded. Procedure Notes None recorded. Medical Equipment None Reported. Allergies Allergen ID Allergen Name Allergen Category Reaction Reaction Severity Criticality Documentation Date Start Date Code Code System Note Provider Name and Address Organization Details Recorded Time 480019 penicilli n G Not available anaphylax is moderate Not available 04/20/2024 7980 [facility] [place] 4 15:50:05 30918 tetracycl ine medicatio n anaphylax is wheezing mild mild Not available 08/26/2022 05758 RxNorm [facility] [place] 3 09:02:22 Medications Name Sig Start Date [...] EVERY DAY BEFORE meals FOR acid reflux 2024 active Not Available Not Available Not Avai lable oxycodone-a cetaminophe n 5 mg-325 mg tablet [...] Updated DateTime 08/26/2022 162.56 cm 34.7 kg/m2 21354.66 g 67 /min 137/99 mm[Hg] Claudine Mera [facility] & [place] 08/26/2022 09:09:42 Date Recorded Body weight Body mass index (BMI) Body height Body temperature Oxygen saturation Oxygen saturation in Arterial blood by Pulse oximetry Heart rate Heart rate Systolic And Diastolic Provider Name and Address Organization Details Last Updated DateTime 4 91368.4 8 g 36.1 kg/m2 162.56 cm 97.9 [degF] 97 % 97 % 81 /min 73 /min 142/92 mm[Hg] Katia [place] [facility] & [place] 4 10:05:46 Date Recorded Body height Body mass index (BMI) Body weight Body temperature Oxygen saturation Oxygen saturation in Arterial blood by Pulse oximetry Heart rate Systolic And Diastolic Provider Name and Address Organization Details Last Updated DateTime 4 162.56 cm 34.8 kg/m2 24798.2 5 g 97.3 [degF] 97 % 97 % 89 /min 130/82 mm[Hg] Eusebio Aj [facility] & [place] 4 15:54:29 Social History Question Answer Notes LastModified by Organizat ion Details LastModified Time Tobacco Smoking Status Former Smoker Claudine Mera [facility] & [place] 08/26/2022 09:02:54 Do You Have An Advance [...] or have you ever used smokeless tobacco? [id number] Information not available 08/26/2022 Mental Status Question Answer Note LastModified by Organizat ion Details LastModified Time Do you feel stressed (tense, restless, nervous, or anxious, or unable to sleep at night)? [id number] Information not available 08/26/2022 Family History Relationship [...] available 08/25/2022 12:41:44 Medical History Condition Response Anemia Y Reflux/GERD Y Ear or Hearing Problems Y Headaches Y Kidney or Bladder Problems Y Hypertension Y GI Problems Y Acne Y Gynecological History Statement/Question Response Menses Monthly Y Abnormal Pap N Duration of Flow (days) 4 Current Control Method None Flow Moderate Date of LMP 08/18/2022 Sexually Active? Y Obstetrics History GPAL:G 0 P 0 0 0 0 Immunizations Vaccine Type Date Status Note Provider Nam lance and Address Organization Details Recorded Time COVID-19, mRNA, LNP-S, PF, 100 mcg/0.5mL dose or 50 mcg/0.25mL dose 08/02/2020 completed Claudine Mera null, [place] - [facility] & [place] 08/26/2022 09:10:00 COVID-19, mRNA, LNP-S, PF, 100 mcg/0.5mL dose or 50 mcg/0.25mL dose 08/30/2020 completed Claudine Mera null, [place] - [facility] & [place] 08/26/2022 09:10:01 Influenza, recombinant, quadrivalent, PF 02/17/2024 completed Eusebio Aj [facility], [place] - [facility] & [place] 04/20/2024 15:50:29 Past Encounters Encounter ID Performer Location Encounter Start Date Encounter Closed Date Diagnosis/Indication Diagnosis SNOMED-CT Code Diagnosis ICD10 Code Diagnosis IMO Codes Diagnosis Note [id number] Compa Yuan PA-C [facility] [address] [address] 08/26/2022 08:58:03 08/26/2022 09:41:56 Crohn's disease 39310925 K50.90 Gastroesop hageal reflux disease without esophagitis 539078073 K21.9 [id number] Compa Yuan PA-C [facility] [address] [address] 02/25/2023 08:58:27 02/25/2023 09:44:09 Crohn's disease 50995527 K50.90 Gastroesop hageal reflux disease without esophagitis 171679491 K21.9 [id number] ALICJA DAMIAN NP [facility] [address] [address] 12/15/2023 09:54:55 12/15/2023 10:41:54 Crohn's disease 76040377 K50.90 Gastroesop hageal reflux disease without esophagitis 697408793 K21.9 Chronic id iopathic constipation 25983690 K59.04 [id number] Compa Yuan PA-C [facility] [address] [address] 04/20/2024 15:44:33 04/20/2024 16:43:24 Crohn's disease 31791541 K50.90 Gastroesop hageal reflux disease without esophagitis 606192403 K21.9 Chronic id iopathic constipation 58242363 K59.04 [id number] Compa Yuan PA-C [facility] [address] [address] 05/17/2024 08:46:52 05/17/2024 09:17:05 Crohn's disease 20978675 K50.90 Gastroesop hageal reflux disease without esophagitis 822026349 K21.9 Chronic id iopathic constipation 08721338 K59.04 Diarrhea 65942415 R19.7 Abdominal pain 14790093 R10.9 Health Concerns Section Related Observation LastModified by Organization Detai ls LastModified Time None Recorded Concern Status LastModified by Organization Details LastModified Time None Recorded Advance Directives Directive Y: Payers Insurance Date Sequence Insurance Name Policy Number Policy Mitchell Covered Member ID Mitchell Member ID Guarantor Name 12/15/2023 1 [employer] (MEDICAID [facility] - HMO) [id number] Napoleon Zhao [id number] Napoleon Guo 06/21/2024 1 [facility] (MEDICAID HMO) Napoleon Zhao [id number] Napoleon Guo Notes Date Note Type Note [...] refills. Compa Yuan PA-C [address], [place], [address], [facility] & [place] 08/26/2022 19:45:04 02/25/2023 text/html Ms. Zhao is [...] care. Compa Yuan PA-C [address], [place], [address], [facility] - [facility] & [place] 02/25/2023 21:22:42 12/15/2023 text/html Previous (08-26-2022 Thania [...] 1 year ALICJA DAMIAN, JENN [address], [place], [address], [facility] - NT - [place] & [place] 12/15/2023 10:46:55 04/20/2024 text/html PREVIOUS (02/26/24): Ms. [...] denies bloody stools. Compa Yuan PA-C [address] [facility], [place], [address], [facility] - [facility] - [place] & [place] 04/20/2024 16:32:10 05/17/2024 text/html PREVIOUS (04/20/24): Ms. [...] initiated by the patient which started at 916 and ended at 923. Consent was obtained to engage in telephonic [...] patient reports being physically located in the [facility] at the time of the encounter. The provider performing the visit was also physically located in the [facility] during the encounter Comap Yuan PA-C [address] , [place], [address], [facility] - [facility] - [place] & [place] 05/17/2024 14:26:57 OBGyn Episode No OBEpisode recorded.
[2025-03-02 10:46] VITALS: BP 125/82; PULSE 80; RESP 18; TEMP 36.6; O2SAT 98
[2025-03-02] MEDS: [UNRECOGNIZED DRUG - OTHER] IV (10:46)
[2025-03-02] MEDS: SODIUM CHLORIDE 0.9% 10ML FLUSH SYRINGE 10 ML IV (10:46)
[2025-03-02] MEDS: DEXTROSE 5% IV (10:46)
[2025-03-02 11:46] VITALS: BP 110/70; PULSE 73; RESP 18; O2SAT 98
[2025-03-02 12:46] VITALS: BP 116/71; PULSE 78; RESP 18; O2SAT 98
[2025-03-02 13:46] VITALS: BP 120/70; PULSE 80; RESP 20; O2SAT 98
== END 2025-03-02 23:59 | disposition home or self-care (01) ==
LOC: INF 10:10
PROVIDERS: PCP Internal Medicine Adolescent Medicine; Visit Provider Internal Medicine Adolescent Medicine
DX: A49.2 Hemophilus influenzae infection, unspecified site (principal); L73.2 Hidradenitis suppurativa
CPT/HCPCS: 96365; 96366; J2407; J7070

== ENCOUNTER 2025-03-25 13:30 | Outpatient (CLI) | payer OTHER, SELFPAY ==
--- NOTE | 2025-03-25 | CA_ITS ---
APPROVED REPORT EXAM: Comprehensive 2D, Doppler, and color-flow Echocardiogram Padding Machine Operator: Ynes Cha, MARTY, RVS Ht: 5 ft 4 in Wt: 190lbs BSA: 1.91 BP: 139/90 mmHg Indications: Dyspnea, Tachycardia 2D Dimensions Aortic Root 2.60 cm LA Volume 53.00 mL Left Atrium 2.92 cm LA Volume Index 27.70 mL/m2 (M/F) 16-34 RVID Base (AP4) 2.65 cm (M/F) 2.5-4.1 EF AP4 60.30 % LVOT 1.95 cm (M/F) 1.5-2.5 GL Strain -20.7 % M-Mode Dimensions RVDd 1.69 cm (0.9-2.6) LVDd 4.69 cm (3.5-5.7) Ao Diam 2.73 cm (2.0-3.7) LVDs 3.13 cm (3.5-5.7) IVSd 0.81 cm (0.6-1.1) PWd 0.84 cm (0.6-1.1) EF (Teich) 61.90% EPSs 0.32 cm FS 33.30% EDV (Teich) 101.90 mL TAPSE 2.21 (<1.7) ESV (Teich) 38.80 mL LV Diastology E Decel Time 272 (160-240 msec) E/A Ratio 1.35 MED E' 8.1 (>= 7 cm/sec) MED A' 10.00 cm/s E'/MED E' Ratio 9.64 (<= 14) LAT E' 14.0 (>= 10 cm/sec) LAT A' 10.00 cm/s E/LAT E' Ratio 5.58 (<= 14) Aortic Valve LVOT Max 104.0 (70-110 cm/s) RAMÍREZ Index 1.30 cm2/m2 LVOT VTI 22.07 cm AoV Peak Marek. 129.0 (50-130 cm/s) AO Mean GR. 3.40 (<5 mmHg) AO VTI 26.4 (18-25 cm) RAMÍREZ (VTI) 2.49 (2.5-4.5 cm2) Mitral Valve MV E Max Marek. 78.0 (40-130 cm/s) MV A Velocity 58.0 (40-130 cm/s) E/A Ratio 1.35 MV Decel. Time 272 (160-240 ms) Tricuspid Valve TR P. Velocity 237.00 cm/s RAP Estimate 10.00 mmHg RVSP 32.40 mmHg Left Ventricle The left ventricle is normal size. Left ventricular systolic function is normal. The left ventricular ejection fraction is within the normal range. There is normal left ventricular wall thickness. There is normal LV segmental wall motion. The left ventricular diastolic function is normal. LVEF is 55% Right Ventricle The right ventricle is normal size. The right ventricular systolic function is normal. Atria Left atrium is mildly dilated. Right atrium is mildly dilated. There is no color Doppler evidence of interatrial shunt. Aortic Valve The aortic valve opens well. There is no hemodynamically significant aortic valvular stenosis. No aortic regurgitation is present. Mitral Valve The mitral valve is normal in structure. No evidence of mitral valve stenosis. Trace mitral regurgitation is present. Tricuspid Valve The tricuspid valve leaflets are thin and pliable. Trace tricuspid regurgitation. There is insufficient TR jet to estimate RVSP. Pulmonic Valve The pulmonary valve is grossly normal in structure. Trace pulmonic valve regurgitation is present. Great Vessels The aortic root is normal in size. IVC is normal in size and collapses >50% with inspiration. Pericardium There is no pericardial effusion. Other Information Study Quality: Fair Conclusion Normal biventricular systolic function. Mild biatrial dilation. No significant valvular stenosis or regurgitation. Electronically signed by : Sanjuana Jama MD 03/31/2025 03:30:41
--- OUTSIDE RECORDS SUMMARY | 2025-03-25 13:32 | XMS_ITS | Data Portability ---
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 [email or web address] Not available 08/26/2022 19:44:36 02/25/2023 02/25/2023 42-year-old [...] -continue omeprazole -EGD 03/2018 without esophageal abnormality. [email or web address] Not available 02/25/2023 21:21:57 12/15/2023 12/15/2023 42-year-old [...] of having underlying IBS. -f/u 2-3 weeks [email or web address] Not available 05/17/2024 14:26:36 Plan of Treatment Reminders Order Date Submit Date Provider Last Modified By Organization Details Last Modified Time Details Appointments None recorded. Lab inflammatio n panel, serum or plasma 2023 024 RAD[facility], [address], [address], [place], [address], 4 07:13:25 adalimumab + adalimumab Ab panel, [place], serum or plasma 2023 024 RADHA [facility], [address], [address], [place], [address], 4 07:13:23 CMP, serum or plasma 2023 024 RADHA [facility], [address], [address], [place], [address], 4 07:13:22 CBC w/ auto diff 2023 024 RADHA [facility], [address], [address], [place], [address], 4 07:13:19 vitamin D, 25-hydroxy, total, serum 2023 024 RADHA [facility], [address], [address], [place], [address], 4 07:13:26 iron + TIBC + ferritin, serum 2023 024 RADHA [facility], [address], [address], [place], [address], 4 07:13:18 Mycobacteri um tuberculosi s stimulated gamma interferon, qual, blood 2023 024 RADHA [facility], [address], [address], [place], [address], 4 07:13:24 gastrointes tinal pathogens DNA + RNA panel, MERCY+non-pro be, stool 2023 024 RADHA [facility], [address], [address], [place], [address], 4 07:13:20 calprotecti n, stool 2023 024 RADHA [facility], [address], [address], [place], [address], 4 07:13:27 unlisted lab - adalimumab drug + antibody 2023 024 RADHA [facility], [address], [address], [place], [address], 4 07:17:25 CMP, serum or plasma 2023 024 RAD[facility], [address], [address], [place], [address], 4 07:17:24 CBC w/ auto diff 2023 024 RAD[facility], [address], [address], [place], [address], 4 07:17:24 CMP, serum or plasma 2022 023 RADHA Not available 3 11:09:51 CBC w/ auto diff 2022 023 RADHA Not available 3 10:35:18 Referral None recorded. Procedures None recorded. Surgeries None recorded. Imaging None recorded. Medication Orders Linzess 72 mcg capsule 2023 024 [facility], [address] [place] [address] [address] [place], [id number], 5 08:31:12 Linzess 145 mcg capsule 2023 024 [facility], [address] [place] [address] [address] [place], [id number], 5 12:09:14 omeprazole 40 mg capsule,del ayed release 2023 024 [facility], [address] [place] [address] [address] [place], [id number], 5 10:20:35 Patient TargetsNo targets recorded. Patient InstructionsNo instructions recorded. Reason for Referral None Reported. Results Created Date Observation Date Name Description Value Unit Range Abnormal Flag Note LastModifiedBy Organization Detail LastModifiedTime 08/27/1908/26/2022 CBC AUTO W DIFF WBC 10.6 K/uL 4.0-10 .5 high Not Available [facility] ([facility]) [address], [place], [address], 08/26/2022 10:35:18 08/27/1908/26/2022 CBC AUTO W DIFF RBC 3.8 M/mm3 4.2-6. 4 low Not Available [facility] ([facility]) [address], [place], [address], 08/26/2022 10:35:18 08/27/1908/26/2022 CBC AUTO W DIFF HGB 11.5 gm/dL 12.5-1 6.0 low Not Available [facility] ([facility]) [address], [place], [address], 08/26/2022 10:35:18 08/27/19 23 08/26/2022 CBC AUTO W DIFF HCT 36.0 % 37.0-4 7.0 low Not Available [facility] ([facility]) [address] , [place], [address], 08/26/2022 10:35:18 08/27/19 23 08/26/2022 CBC AUTO W DIFF MCV 96.0 fL 78-100 Not Available [facility] ([facility]) [address] , [place], [address], 08/26/2022 10:35:18 08/27/19 23 08/26/2022 CBC AUTO W DIFF MCH 30.7 pg 27-31 Not Available [facility] ([facility]) [address] [place] [address], [place], [address], 08/26/2022 10:35:18 08/27/19 23 08/26/2022 CBC AUTO W DIFF MCHC 31.9 g/dL 32-36 low Not Available [facility] ([facility]) [address] , [place], [address], 08/26/2022 10:35:18 08/27/19 23 08/26/2022 CBC AUTO W DIFF RDW 12.2 % 11.5-1 4.0 Not Available [facility] ([facility]) [address] , [place], [address], 08/26/2022 10:35:18 08/27/19 23 08/26/2022 CBC AUTO W DIFF platelet count 385 K/uL 150-45 0 Not Available [facility] ([facility]) [address] [place] [address], [place], [address], 08/26/2022 10:35:18 08/27/19 23 08/26/2022 CBC AUTO W DIFF neutrophil% 57.5 % 43-65 Not Available [facility] ([facility]) [address] [place] [address], [place], [address], 08/26/2022 10:35:18 08/27/19 23 08/26/2022 CBC AUTO W DIFF lymphocyte% 29.7 % 20.5-4 5.5 Not Available [facility] ([facility]) [address] [place] [address], [place], [address], 08/26/2022 10:35:18 08/27/19 23 08/26/2022 CBC AUTO W DIFF monocyte% 9.0 % 5.5-11 .7 Not Available [facility] ([facility]) [address] [place] [address], [place], [address], 08/26/2022 10:35:18 08/27/19 23 08/26/2022 CBC AUTO W DIFF eosinophil% 3.4 % 0.9-2. 9 high Not Available [facility] ([facility]) [address] [facility], [place], [address], 08/26/2022 10:35:18 08/27/19 23 08/26/2022 CBC AUTO W DIFF basophil% 0.4 % 0.2-1. 0 Not Available [facility] ([facility]) [address] [place], [place], [address], 08/26/2022 10:35:18 08/27/19 23 08/26/2022 CBC AUTO W DIFF neutrophil# 6.1 K/uL 2.2-4. 8 high Not Available [facility] ([facility]) [address] [facility], [place], [address], 08/26/2022 10:35:18 08/27/19 23 08/26/2022 CBC AUTO W DIFF lymphocyte# 3.2 cell/ mcL 1.3-2. 9 high Not Available [facility] ([facility]) [address] [facility], [place], [address], 08/26/2022 10:35:18 08/27/19 23 08/26/2022 CBC AUTO W DIFF monocyte# 1.0 cell/ mcL 0.3-0. 8 high Not Available [facility] ([facility]) [address] , [place], [address], 08/26/2022 10:35:18 08/27/19 23 08/26/2022 CBC AUTO W DIFF eosinophil# 0.4 cell/ mcL 0-0.2 high Not Available [facility] ([facility]) [address] , [place], [address], 08/26/2022 10:35:18 08/27/19 23 08/26/2022 CBC AUTO W DIFF basophil# 0.0 cell/ mcL 0.0-1. 0 Not Available [facility] ([facility]) [address] [place] [address], [place], [address], 08/26/2022 10:35:18 08/27/19 23 08/26/2022 CBC AUTO W DIFF manual differential NO Not Available [facility] ([facility]) [address] [place] [address], [place], [address], 08/26/2022 10:35:18 08/27/19 23 08/26/2022 COMP METAB OLIC PANEL sodium 141 mmol/ L 136-14 5 Not Available [facility] ([facility]) [address] [place] [address], [place], [address], 08/26/2022 11:09:51 08/27/19 23 08/26/2022 COMP METAB OLIC PANEL potassium 3.9 mmol/ L 3.6-5. 0 Not Available [facility] ([facility]) [address] [place], [address], 08/26/2022 11:09:51 08/27/19 23 08/26/2022 COMP METAB OLIC PANEL chloride 103 mmol/ L 98-107 Not Available [facility] ([facility]) [address] [place], [place], [address], 08/26/2022 11:09:51 08/27/19 23 08/26/2022 COMP METAB OLIC PANEL carbon dioxide 30.7 mmol/ L 21.0-3 2.0 Not Available [facility] ([facility]) [address], [place], [address], 08/26/2022 11:09:51 08/27/19 23 08/26/2022 COMP METAB OLIC PANEL anion gap 11.2 Not Available [facility] ([facility]) [address] , [place], [address], 08/26/2022 11:09:51 08/27/19 23 08/26/2022 COMP METAB OLIC PANEL glucose 80 mg/dL 70-120 Not Available [facility] ([facility]) [address] , [place], [address], 08/26/2022 11:09:51 08/27/19 23 08/26/2022 COMP METAB OLIC PANEL BUN 6 mg/dL 7-18 low Not Available [facility] ([facility]) [address] , [place], [address], 08/26/2022 11:09:51 08/27/19 23 08/26/2022 COMP METAB OLIC PANEL creatinine 0.9 mg/dL 0.6-1. 3 Not Available [facility] ([facility]) [address] [place], [address], 08/26/2022 11:09:51 08/27/19 23 08/26/2022 COMP METAB OLIC PANEL glomerular filtration rate >60 mlper min 60- Not Available [facility] ([facility]) [address] , [place], [address], 08/26/2022 11:09:51 08/27/19 23 08/26/2022 COMP METAB OLIC PANEL total protein 8.1 g/dL 6.4-8. 2 Not Available [facility] ([facility]) [address], [place], [address], 08/26/2022 11:09:51 08/27/19 23 08/26/2022 COMP METAB OLIC PANEL albumin 3.2 g/dL 3.4-5. 0 low Not Available [facility] ([facility]) [address], [place], [address], 08/26/2022 11:09:51 08/27/19 23 08/26/2022 COMP METAB OLIC PANEL globulin 4.9 Not Available [facility] ([facility]) [address] , [place], [address], 08/26/2022 11:09:51 08/27/19 23 08/26/2022 COMP METAB OLIC PANEL alb/glob ratio 0.7 0.7-2 Not Available [facility] ([facility]) [address] , [place], [address], 08/26/2022 11:09:51 08/27/19 23 08/26/2022 COMP METAB OLIC PANEL calcium 8.6 mg/dL 8.5-10 .5 Not Available [facility] ([facility]) [address] , [place], [address], 08/26/2022 11:09:51 08/27/19 23 08/26/2022 COMP METAB OLIC PANEL bilirubin total 0.20 mg/dL 0.10-1 .00 Not Available [facility] ([facility]) [address] , [place], [address], 08/26/2022 11:09:51 08/27/19 23 08/26/2022 COMP METAB OLIC PANEL AST (SGOT) 16 U/L 0-37 Not Available [facility] ([facility]) [address] , [place], [address], 08/26/2022 11:09:51 08/27/19 23 08/26/2022 COMP METAB OLIC PANEL ALT (SGPT) 16 U/L 0-65 Not Available [facility] ([facility]) [address], [place], [address], 08/26/2022 11:09:51 08/27/19 23 08/26/2022 COMP METAB OLIC PANEL alk phosphatase 72 U/L 46-116 Not Available [facility] ([facility]) [address], [place], [address], 08/26/2022 11:09:51 12/15/19 24 12/16/2023 CBC WITH DIFFE RENTI AL/PL ATELE T WBC 9.9 x10e3 /uL 3.4-10 .8 normal Not Available [facility] ([facility]) [address] [place], [address], 12/24/2023 07:17:24 12/15/19 24 12/16/2023 CBC WITH DIFFE RENTI AL/PL ATELE T RBC 3.76 x10e6 /uL 3.77-5 .28 below low normal Not Available [facility] ([facility]) [address] [facility], [place], [address], 12/24/2023 07:17:24 12/15/19 24 12/16/2023 CBC WITH DIFFE RENTI AL/PL ATELE T hemoglobin 11.9 g/dL 11.1-1 5.9 normal Not Available [facility] ([facility]) [address] [place], [address], 12/24/2023 07:17:24 12/15/19 24 12/16/2023 CBC WITH DIFFE RENTI AL/PL ATELE T hematocrit 36.5 % 34.0-4 6.6 normal Not Available [facility] ([facility]) [address] [place], [address], 12/24/2023 07:17:24 12/15/19 24 12/16/2023 CBC WITH DIFFE RENTI AL/PL ATELE T MCV 97 fL 79-97 normal Not Available [facility] ([facility]) [address] [facility], [place], [address], 12/24/2023 07:17:24 12/15/19 24 12/16/2023 CBC WITH DIFFE RENTI AL/PL ATELE T MCH 31.6 pg 26.6-3 3.0 normal Not Available [facility] ([facility]) [address] [facility], [place], [address], 12/24/2023 07:17:24 12/15/19 24 12/16/2023 CBC WITH DIFFE RENTI AL/PL ATELE T MCHC 32.6 g/dL 31.5-3 5.7 normal Not Available [facility] ([facility]) [address] [place], [address], 12/24/2023 07:17:24 12/15/19 24 12/16/2023 CBC WITH DIFFE RENTI AL/PL ATELE T RDW 13.3 % 11.7-1 5.4 Not Available [facility] ([facility]) [address] [place], [address], 12/24/2023 07:17:24 12/15/19 24 12/16/2023 CBC WITH DIFFE RENTI AL/PL ATELE T platelets 421 x10e3 /uL 150-45 0 normal Not Available [facility] ([facility]) [address] [facility], [place], [address], 12/24/2023 07:17:24 12/15/19 24 12/16/2023 CBC WITH DIFFE RENTI AL/PL ATELE T neutrophils 63 % not estab. normal Not Available [facility] ([facility]) [address] [facility], [place], [address], 12/24/2023 07:17:24 12/15/19 24 12/16/2023 CBC WITH DIFFE RENTI AL/PL ATELE T lymphs 26 % not estab. normal Not Available [facility] ([facility]) [address] [place], [address], 12/24/2023 07:17:24 12/15/19 24 12/16/2023 CBC WITH DIFFE RENTI AL/PL ATELE T monocytes 7 % not estab. normal Not Available [facility] ([facility]) [address] [facility], [place], [address], 12/24/2023 07:17:24 12/15/19 24 12/16/2023 CBC WITH DIFFE RENTI AL/PL ATELE T eos 3 % not estab. normal Not Available [facility] ([facility]) [address] [facility], [place], [address], 12/24/2023 07:17:24 12/15/19 24 12/16/2023 CBC WITH DIFFE RENTI AL/PL ATELE T basos 1 % not estab. normal Not Available [facility] ([facility]) [address] [place], [address], 12/24/2023 07:17:24 12/15/19 24 12/16/2023 CBC WITH DIFFE RENTI AL/PL ATELE T immature cells [employer] Not Available [facility]) [address] [place], [address], 12/24/2023 07:17:24 12/15/19 24 12/16/2023 CBC WITH DIFFE RENTI AL/PL ATELE T neutrophils (absolute) 6.2 x10e3 /uL 1.4-7. 0 normal Not Available [facility] ([facility]) [address] [place], [address], 12/24/2023 07:17:24 12/15/19 24 12/16/2023 CBC WITH DIFFE RENTI AL/PL ATELE T lymphs (absolute) 2.6 x10e3 /uL 0.7-3. 1 normal Not Available [facility] ([facility]) [address] [facility], [place], [address], 12/24/2023 07:17:24 12/15/19 24 12/16/2023 CBC WITH DIFFE RENTI AL/PL ATELE T monocytes(ab solute) 0.7 x10e3 /uL 0.1-0. 9 normal Not Available [facility] ([facility]) [address] [facility], [place], [address], 12/24/2023 07:17:24 12/15/19 24 12/16/2023 CBC WITH DIFFE RENTI AL/PL ATELE T eos (absolute) 0.3 x10e3 /uL 0.0-0. 4 normal Not Available [facility] ([facility]) [address] [facility], [place], [address], 12/24/2023 07:17:24 12/15/19 24 12/16/2023 CBC WITH DIFFE RENTI AL/PL ATELE T baso (absolute) 0.1 x10e3 /uL 0.0-0. 2 normal Not Available [facility] ([facility]) [address] [facility], [place], [address], 12/24/2023 07:17:24 12/15/19 24 12/16/2023 CBC WITH DIFFE RENTI AL/PL ATELE T immature granulocytes 0 % not estab. Not Available [facility] ([facility]) [address] [place], [address], 12/24/2023 07:17:24 12/15/19 24 12/16/2023 CBC WITH DIFFE RENTI AL/PL ATELE T immature grans (abs) 0.0 x10e3 /uL 0.0-0. 1 Not Available [facility] ([facility]) [address] [facility], [place], [address], 12/24/2023 07:17:24 12/15/19 24 12/16/2023 CBC WITH DIFFE RENTI AL/PL ATELE T NRBC [employer] Not Available [facility] ([facility]) [address] [facility], [place], [address], 12/24/2023 07:17:24 12/15/19 24 12/16/2023 CBC WITH DIFFE RENTI AL/PL ATELE T hematology comments: [employer] Not Available [facility]) [address] [facility], [place], [address], 12/24/2023 07:17:24 12/15/19 24 12/16/2023 COMP. METAB OLIC PANEL (14) glucose 91 mg/dL 70-99 normal Not Available [facility] ([facility]) [address] [facility], [place], [address], 12/24/2023 07:17:24 12/15/19 24 12/16/2023 COMP. METAB OLIC PANEL (14) BUN 14 mg/dL 6-24 normal Not Available [facility] ([facility]) [address] [facility], [place], [address], 12/24/2023 07:17:24 12/15/19 24 12/16/2023 COMP. METAB OLIC PANEL (14) creatinine 0.79 mg/dL 0.57-1 .00 normal Not Available [facility] ([facility]) [address] [facility], [place], [address], 12/24/2023 07:17:24 12/15/19 24 12/16/2023 COMP. METAB OLIC PANEL (14) eGFR 96 mL/mi n/1.7 3 >59 normal Not Available [facility] ([facility]) [address] [facility] [place] [place], [address], 12/24/2023 07:17:24 12/15/19 24 12/16/2023 COMP. METAB OLIC PANEL (14) BUN/creatini ne ratio 18 9-23 normal Not Available [facility] ([facility]) [address] [place], [address], 12/24/2023 07:17:24 12/15/19 24 12/16/2023 COMP. METAB OLIC PANEL (14) sodium 137 mmol/ L 134-14 4 normal Not Available [facility] ([facility]) [address] [place], [address], 12/24/2023 07:17:24 12/15/19 24 12/16/2023 COMP. METAB OLIC PANEL (14) potassium 4.7 mmol/ L 3.5-5. 2 normal Not Available [facility] ([facility]) [address] [place], [address], 12/24/2023 07:17:24 12/15/19 24 12/16/2023 COMP. METAB OLIC PANEL (14) chloride 103 mmol/ L 96-106 normal Not Available [facility] ([facility]) [address] [place], [address], 12/24/2023 07:17:24 12/15/19 24 12/16/2023 COMP. METAB OLIC PANEL (14) carbon dioxide, total 22 mmol/ L 20-29 normal Not Available [facility] ([facility]) [address] [place], [address], 12/24/2023 07:17:24 12/15/19 24 12/16/2023 COMP. METAB OLIC PANEL (14) calcium 9.2 mg/dL 8.7-10 .2 normal Not Available [facility] ([facility]) [address] [place], [address], 12/24/2023 07:17:24 12/15/19 24 12/16/2023 COMP. METAB OLIC PANEL (14) protein, total 7.4 g/dL 6.0-8. 5 normal Not Available [facility] ([facility]) [address] [place], [address], 12/24/2023 07:17:24 12/15/19 24 12/16/2023 COMP. METAB OLIC PANEL (14) albumin 4.3 g/dL 3.9-4. 9 normal Not Available [facility] ([facility]) [address] [facility], [place], [address], 12/24/2023 07:17:24 12/15/19 24 12/16/2023 COMP. METAB OLIC PANEL (14) globulin, total 3.1 g/dL 1.5-4. 5 Not Available [facility] ([facility]) [address] [place], [address], 12/24/2023 07:17:24 12/15/19 24 12/16/2023 COMP. METAB OLIC PANEL (14) bilirubin, total <0.2 mg/dL 0.0-1. 2 Not Available [facility] ([facility]) [address] [facility], [place], [address], 12/24/2023 07:17:24 12/15/19 24 12/16/2023 COMP. METAB OLIC PANEL (14) alkaline phosphatase 83 IU/L 44-121 normal Not Available [facility]) [address] [facility], [place], [address], 12/24/2023 07:17:24 12/15/19 24 12/16/2023 COMP. METAB OLIC PANEL (14) AST (SGOT) 17 IU/L 0-40 normal Not Available [facility] ([facility]) [address] [facility] [place], [address], 12/24/2023 07:17:24 12/15/19 24 12/16/2023 COMP. METAB OLIC PANEL (14) ALT (SGPT) 15 IU/L 0-32 normal Not Available [facility] ([facility]) [address] [facility], [place], [address], 12/24/2023 07:17:24 12/15/19 24 12/22/2023 SERGE MUMAB [...] antib odies are prese nt. Not Available [facility] [address] [facility], [place], [address], 12/24/2023 07:17:25 12/15/19 24 12/23/2023 SERGE MUMAB [...] conse quent ial.( 4-6) - Some immun [facility] is rever sible . Elimi natio [...] opmen t and Valid ation for Immun [facility] Testi ng of Thera peuti c Prote in Produ cts (2019 ). Not Available [facility] [address] [facility], [place], [address], 12/24/2023 07:17:25 12/15/1912/23/2023 SERGE MUMAB DRUG + ANTIB SHABNAM pdf . Not Available [facility] [address] [facility], [place], [address], 12/24/2023 07:17:25 04/20/20 24 04/21/2024 FE+TI BC+FE R iron bind.cap.(TI BC) 350 ug/dL 250-45 0 normal Not Available [facility] ([facility]) [address] [place], [address], 05/01/2024 07:13:18 04/20/20 24 04/21/2024 FE+TI BC+FE R UIBC 302 ug/dL 131-42 5 normal Not Available [facility] ([facility]) [address] [place], [address], 05/01/2024 07:13:18 04/20/20 24 04/21/2024 FE+TI BC+FE R iron 48 ug/dL 27-159 normal Not Available [facility] ([facility]) [address] [place], [address], 05/01/2024 07:13:18 04/20/20 24 04/21/2024 FE+TI BC+FE R iron saturation 14 % 15-55 below low normal Not Available [facility] ([facility]) [address] [place], [address], 05/01/2024 07:13:18 04/20/20 24 04/21/2024 FE+TI BC+FE R ferritin 36 NG/mL 15-150 normal Not Available [facility] ([facility]) [address] [place], [address], 05/01/2024 07:13:18 04/20/20 24 04/21/2024 CBC WITH DIFFE RENTI AL/PL ATELE T WBC 12.8 x10e3 /uL 3.4-10 .8 above high normal Not Available [facility] ([facility]) [address] [place], [address], 05/01/2024 07:13:19 04/20/20 24 04/21/2024 CBC WITH DIFFE RENTI AL/PL ATELE T RBC 3.75 x10e6 /uL 3.77-5 .28 below low normal Not Available [facility] ([facility]) [address] [place], [address], 05/01/2024 07:13:19 04/20/20 24 04/21/2024 CBC WITH DIFFE RENTI AL/PL ATELE T hemoglobin 11.4 g/dL 11.1-1 5.9 normal Not Available [facility] ([facility]) [address] [place], [address], 05/01/2024 07:13:19 04/20/20 24 04/21/2024 CBC WITH DIFFE RENTI AL/PL ATELE T hematocrit 36.0 % 34.0-4 6.6 normal Not Available [facility] ([facility]) [address] [place], [address], 05/01/2024 07:13:19 04/20/20 24 04/21/2024 CBC WITH DIFFE RENTI AL/PL ATELE T MCV 96 fL 79-97 normal Not Available [facility] ([facility]) [address] [place], [address], 05/01/2024 07:13:19 04/20/20 24 04/21/2024 CBC WITH DIFFE RENTI AL/PL ATELE T MCH 30.4 pg 26.6-3 3.0 normal Not Available [facility] ([facility]) [address] [place], [address], 05/01/2024 07:13:19 04/20/20 24 04/21/2024 CBC WITH DIFFE RENTI AL/PL ATELE T MCHC 31.7 g/dL 31.5-3 5.7 normal Not Available [facility] ([facility]) [address] [facility], [place], [address], 05/01/2024 07:13:19 04/20/20 24 04/21/2024 CBC WITH DIFFE RENTI AL/PL ATELE T RDW 12.6 % 11.7-1 5.4 Not Available [facility] ([facility]) [address] [facility], [place], [address], 05/01/2024 07:13:19 04/20/20 24 04/21/2024 CBC WITH DIFFE RENTI AL/PL ATELE T platelets 524 x10e3 /uL 150-45 0 above high normal Not Available [facility] ([facility]) [address] [facility], [place], [address], 05/01/2024 07:13:19 04/20/20 24 04/21/2024 CBC WITH DIFFE RENTI AL/PL ATELE T neutrophils 69 % not estab. normal Not Available [facility] ([facility]) [address] [facility], [place], [address], 05/01/2024 07:13:19 04/20/20 24 04/21/2024 CBC WITH DIFFE RENTI AL/PL ATELE T lymphs 23 % not estab. normal Not Available [facility] ([facility]) [address] [facility], [place], [address], 05/01/2024 07:13:19 04/20/20 24 04/21/2024 CBC WITH DIFFE RENTI AL/PL ATELE T monocytes 5 % not estab. normal Not Available [facility] ([facility]) [address] [facility], [place], [address], 05/01/2024 07:13:19 04/20/20 24 04/21/2024 CBC WITH DIFFE RENTI AL/PL ATELE T eos 2 % not estab. normal Not Available [facility] ([facility]) [address] [place], [address], 05/01/2024 07:13:19 04/20/20 24 04/21/2024 CBC WITH DIFFE RENTI AL/PL ATELE T basos 1 % not estab. normal Not Available [facility] ([facility]) [address] [facility], [place], [address], 05/01/2024 07:13:19 04/20/20 24 04/21/2024 CBC WITH DIFFE RENTI AL/PL ATELE T immature cells [employer]IE[employer] Not Available [facility] ([facility]) [address] [facility], [place], [address], 05/01/2024 07:13:19 04/20/20 24 04/21/2024 CBC WITH DIFFE RENTI AL/PL ATELE T neutrophils (absolute) 8.9 x10e3 /uL 1.4-7. 0 above high normal Not Available [facility] ([facility]) [address] [place], [address], 05/01/2024 07:13:19 04/20/20 24 04/21/2024 CBC WITH DIFFE RENTI AL/PL ATELE T lymphs (absolute) 2.9 x10e3 /uL 0.7-3. 1 normal Not Available [facility] ([facility]) [address] [place], [address], 05/01/2024 07:13:19 04/20/20 24 04/21/2024 CBC WITH DIFFE RENTI AL/PL ATELE T monocytes(ab solute) 0.6 x10e3 /uL 0.1-0. 9 normal Not Available [facility] ([facility]) [address] [place], [address], 05/01/2024 07:13:19 04/20/20 24 04/21/2024 CBC WITH DIFFE RENTI AL/PL ATELE T eos (absolute) 0.3 x10e3 /uL 0.0-0. 4 normal Not Available [facility] ([facility]) [address] [facility], [place], [address], 05/01/2024 07:13:19 04/20/20 24 04/21/2024 CBC WITH DIFFE RENTI AL/PL ATELE T baso (absolute) 0.1 x10e3 /uL 0.0-0. 2 normal Not Available [facility] ([facility]) [address] [facility], [place], [address], 05/01/2024 07:13:19 04/20/20 24 04/21/2024 CBC WITH DIFFE RENTI AL/PL ATELE T immature granulocytes 0 % not estab. Not Available [facility] ([facility]) [address] [facility], [place], [address], 05/01/2024 07:13:19 04/20/20 24 04/21/2024 CBC WITH DIFFE RENTI AL/PL ATELE T immature grans (abs) 0.0 x10e3 /uL 0.0-0. 1 Not Available [facility] ([facility]) [address] [facility], [place], [address], 05/01/2024 07:13:19 04/20/20 24 04/21/2024 CBC WITH DIFFE RENTI AL/PL ATELE T NRBC [employer] Not Available [facility] ([facility]) [address] [facility], [place], [address], 05/01/2024 07:13:19 04/20/20 24 04/21/2024 CBC WITH DIFFE RENTI AL/PL ATELE T hematology comments: [employer]IE[employer] Not Available [facility] ([facility]) [address] [place], [address], 05/01/2024 07:13:19 04/20/20 24 04/21/2024 GI PROFI LE, STOOL , PCR campylobacte r COMMEN T Test not perfo rmed. No speci men recei elvia. Not Available [facility] ([facility]) [address] [place], [address], 05/01/2024 07:13:20 04/20/20 24 04/21/2024 GI PROFI LE, STOOL , PCR C difficile toxin A/B TNP Test not perfo rmed Not Available [facility] ([facility]) [address] [place], [address], 05/01/2024 07:13:20 04/20/20 24 04/21/2024 GI PROFI LE, STOOL , PCR plesiomonas shigelloides TNP Test not perfo rmed Not Available [facility] ([facility]) [address] [place], [address], 05/01/2024 07:13:20 04/20/20 24 04/21/2024 GI PROFI LE, STOOL , PCR salmonella TNP Test not perfo rmed Not Available [facility] ([facility]) [address] [place], [address], 05/01/2024 07:13:20 04/20/20 24 04/21/2024 GI PROFI LE, STOOL , PCR vibrio TNP Test not perfo rmed Not Available [facility] ([facility]) [address] [place], [address], 05/01/2024 07:13:20 04/20/20 24 04/21/2024 GI PROFI LE, STOOL , PCR vibrio cholerae TNP Test not perfo rmed Not Available [facility] ([facility]) [address] [place], [address], 05/01/2024 07:13:20 04/20/20 24 04/21/2024 GI PROFI LE, STOOL , PCR yersinia enterocoliti ca TNP Test not perfo rmed Not Available [facility] ([facility]) [address] [place], [address], 05/01/2024 07:13:20 04/20/20 24 04/21/2024 GI PROFI LE, STOOL , PCR enteroaggreg ative E coli TNP Test not perfo rmed Not Available [facility] ([facility]) [address] [place], [address], 05/01/2024 07:13:20 04/20/20 24 04/21/2024 GI PROFI LE, STOOL , PCR enteropathog enic E coli TNP Test not perfo rmed Not Available [facility] ([facility]) [address] [place], [address], 05/01/2024 07:13:20 04/20/20 24 04/21/2024 GI PROFI LE, STOOL , PCR enterotoxige tricia E coli TNP Test not perfo rmed Not Available [facility] ([facility]) [address] [place], [address], 05/01/2024 07:13:20 04/20/20 24 04/21/2024 GI PROFI LE, STOOL , PCR shiga-toxin- producing E coli TNP Test not perfo rmed Not Available [facility] ([facility]) [address] [place], [address], 05/01/2024 07:13:20 04/20/20 24 04/21/2024 GI PROFI LE, STOOL , PCR E coli O157 TNP Test not perfo rmed Not Available [facility] ([facility]) [address] [place], [address], 05/01/2024 07:13:20 04/20/20 24 04/21/2024 GI PROFI LE, STOOL , PCR shigella/ent eroinvasive E coli TNP Test not perfo rmed Not Available [facility] ([facility]) [address] [place], [address], 05/01/2024 07:13:20 04/20/20 24 04/21/2024 GI PROFI LE, STOOL , PCR cryptosporid ium TNP Test not perfo rmed Not Available [facility] ([facility]) [address] [facility], [place], [address], 05/01/2024 07:13:20 04/20/20 24 04/21/2024 GI PROFI LE, STOOL , PCR cyclospora cayetanensis TNP Test not perfo rmed Not Available [facility] ([facility]) [address] [place], [address], 05/01/2024 07:13:20 04/20/20 24 04/21/2024 GI PROFI LE, STOOL , PCR entamoeba histolytica TNP Test not perfo rmed Not Available [facility] ([facility]) [address] [facility], [place], [address], 05/01/2024 07:13:20 04/20/20 24 04/21/2024 GI PROFI LE, STOOL , PCR giardia lamblia TNP Test not perfo rmed Not Available [facility] ([facility]) [address] [place], [address], 05/01/2024 07:13:20 04/20/20 24 04/21/2024 GI PROFI LE, STOOL , PCR adenovirus F 40/41 TNP Test not perfo rmed Not Available [facility] ([facility]) [address] [place], [address], 05/01/2024 07:13:20 04/20/20 24 04/21/2024 GI PROFI LE, STOOL , PCR astrovirus TNP Test not perfo rmed Not Available [facility] ([facility]) [address] [place], [address], 05/01/2024 07:13:20 04/20/20 04/21/2024 GI PROFI LE, STOOL , PCR norovirus GI/gii TNP Test not perfo rmed Not Available [facility] ([facility]) [address] [facility], [place], [address], 05/01/2024 07:13:20 04/20/20 24 04/21/2024 GI PROFI LE, STOOL , PCR rotavirus A TNP Test not perfo rmed Not Available [facility] ([facility]) [address] [facility], [place], [address], 05/01/2024 07:13:20 04/20/20 24 04/21/2024 GI PROFI LE, STOOL , PCR sapovirus TNP Test not perfo rmed Not Available [facility] ([facility]) [address] [facility], [place], [address], 05/01/2024 07:13:20 04/20/20 24 04/21/2024 COMP. METAB OLIC PANEL (14) glucose 89 mg/dL 70-99 normal Not Available [facility] ([facility]) [address] [facility] [place], [address], 05/01/2024 07:13:22 04/20/20 24 04/21/2024 COMP. METAB OLIC PANEL (14) BUN 8 mg/dL 6-24 normal Not Available [facility] ([facility]) [address] [facility] [place], [address], 05/01/2024 07:13:22 04/20/20 24 04/21/2024 COMP. METAB OLIC PANEL (14) creatinine 0.75 mg/dL 0.57-1 .00 normal Not Available [facility] ([facility]) [address] [facility] [place], [address], 05/01/2024 07:13:22 04/20/20 24 04/21/2024 COMP. METAB OLIC PANEL (14) eGFR 103 mL/mi n/1.7 3 >59 normal Not Available [facility] ([facility]) [address] [place], [address], 05/01/2024 07:13:22 04/20/20 24 04/21/2024 COMP. METAB OLIC PANEL (14) BUN/creatini ne ratio 11 9-23 normal Not Available [facility] ([facility]) [address] [place], [address], 05/01/2024 07:13:22 04/20/20 24 04/21/2024 COMP. METAB OLIC PANEL (14) sodium 140 mmol/ L 134-14 4 normal Not Available [facility] ([facility]) [address] [place], [address], 05/01/2024 07:13:22 04/20/20 24 04/21/2024 COMP. METAB OLIC PANEL (14) potassium 4.0 mmol/ L 3.5-5. 2 normal Not Available [facility] ([facility]) [address] [place], [address], 05/01/2024 07:13:22 04/20/20 24 04/21/2024 COMP. METAB OLIC PANEL (14) chloride 102 mmol/ L 96-106 normal Not Available [facility] ([facility]) [address] [place], [address], 05/01/2024 07:13:22 04/20/20 24 04/21/2024 COMP. METAB OLIC PANEL (14) carbon dioxide, total 26 mmol/ L 20-29 normal Not Available [facility] ([facility]) [address] [place], [address], 05/01/2024 07:13:22 04/20/20 24 04/21/2024 COMP. METAB OLIC PANEL (14) calcium 9.1 mg/dL 8.7-10 .2 normal Not Available [facility] ([facility]) [address] [place], [address], 05/01/2024 07:13:22 04/20/20 24 04/21/2024 COMP. METAB OLIC PANEL (14) protein, total 7.2 g/dL 6.0-8. 5 normal Not Available [facility] ([facility]) [address] [place], [address], 05/01/2024 07:13:22 04/20/20 24 04/21/2024 COMP. METAB OLIC PANEL (14) albumin 3.9 g/dL 3.9-4. 9 normal Not Available [facility] ([facility]) [address] [place], [address], 05/01/2024 07:13:22 04/20/20 24 04/21/2024 COMP. METAB OLIC PANEL (14) globulin, total 3.3 g/dL 1.5-4. 5 Not Available [facility] ([facility]) [address] [place], [address], 05/01/2024 07:13:22 04/20/20 24 04/21/2024 COMP. METAB OLIC PANEL (14) bilirubin, total 0.2 mg/dL 0.0-1. 2 normal Not Available [facility] ([facility]) [address] [place], [address], 05/01/2024 07:13:22 04/20/20 24 04/21/2024 COMP. METAB OLIC PANEL (14) alkaline phosphatase 99 IU/L 44-121 normal Not Available [facility] ([facility]) [address] [place], [address], 05/01/2024 07:13:22 04/20/20 24 04/21/2024 COMP. METAB OLIC PANEL (14) AST (SGOT) 14 IU/L 0-40 normal Not Available [facility] ([facility]) [address] [place], [address], 05/01/2024 07:13:22 04/20/20 24 04/21/2024 COMP. METAB OLIC PANEL (14) ALT (SGPT) 17 IU/L 0-32 normal Not Available [facility] ([facility]) [address] [facility], [place], [address], 05/01/2024 07:13:22 04/20/20 24 04/25/2024 SERGE MUMAB [...] antib odies are prese nt. Not Available [facility] [address] [facility], [place], [address], 05/01/2024 07:13:23 04/20/20 24 04/30/2024 SERGE MUMAB [...] conse quent ial.( 4-6) - Some immun [facility] is rever sible . Elimi natio n of inter media te titer (and even some high titer ) anti- serge mumab antib odies has been achie elvia with dose escal ation and/o r metho trexa te or 6-MP. (7) - This anti- serge mumab antib shabnam assay is drug noir ant, and all posit kelvin resul ts are verif ied for anti- drug speci ficit y by a confi rmato ry test. Refer ences : 1. Zulma Merchatn, et al. AGA Revie w on TDM [...] e gonzalo cteri stics deter mined by [employer]. They have not been clear ed [...] ). Not Available [facility] [address] [facility], [place], [address], 05/01/2024 07:13:23 04/20/20 24 05/01/2024 SERGE MUMAB DRUG + ANTIB SHABNAM pdf . Not Available [facility] [address] [facility], [place], [address], 05/01/2024 07:13:23 04/20/20 24 04/21/2024 QUANT IFERO N-TB GOLD PLUS quantiferon incubation INCUBA TION PERFOR MED. Not Available [facility] ([facility]) [address] [facility], [place], [address], 05/01/2024 07:13:24 04/20/20 24 04/21/2024 QUANT IFERO [...] ol for the test. Not Available [facility] ([facility]) [address] [facility], [place], [address], 05/01/2024 07:13:24 04/20/20 24 04/22/2024 QUANT IFERO N-TB GOLD PLUS quantiferon TB1 Ag value 0.01 IU/mL Not Available [facility] ([facility]) [address] [facility], [place], [address], 05/01/2024 07:13:24 04/20/20 24 04/22/2024 QUANT IFERO N-TB GOLD PLUS quantiferon TB2 Ag value 0.00 IU/mL Not Available [facility] ([facility]) [address] [place], [address], 05/01/2024 07:13:24 04/20/20 24 04/22/2024 QUANT IFERO N-TB GOLD PLUS quantiferon nil value 0.00 IU/mL Not Available [facility] ([facility]) [address] [facility], [place], [address], 05/01/2024 07:13:24 04/20/20 24 04/22/2024 QUANT IFERO N-TB GOLD PLUS quantiferon mitogen value >10.00 IU/mL Not Available [facility] ([facility]) [address] [facility], [place], [address], 05/01/2024 07:13:24 04/20/20 24 04/22/2024 QUANT IFERO [...] y metho dolog y Not Available [facility] ([facility]) [address] [facility], [place], [address], 05/01/2024 07:13:24 04/20/20 24 04/21/2024 ESR-W ES+CR P sedimentatio n rate-westerg caroline 79 mm/HR 0-32 above high normal Not Available [facility] ([facility]) [address], [place], [address], 05/01/2024 07:13:25 04/20/20 24 04/21/2024 ESR-W ES+CR P C-reactive protein, quant 19 mg/L 0-10 above high normal Not Available [facility] ([facility]) [address], [place], [address], 05/01/2024 07:13:25 04/20/20 24 04/21/2024 VITAM IN [...] um and D. Baldomero schmitt [place]: [facility] . 2. Maicol singh MF, Loulou pacheco [place], Marciano off-F errar i HALL, et al. Evalu ation , treat ment, and preve ntion of vitam in D defic iency : an Endoc rine Socie ty clini jesus pract ice guide line. JCEM. 2010; 96(7) :1911 -30. Not Available [facility] ([facility]) [address] [facility], [place], [address], 05/01/2024 07:13:26 04/20/20 24 04/21/2024 CALPR OTECT [...] clini kailey indic ated Not Available [facility] ([facility]) [address] [facility], [place], [address], 05/01/2024 07:13:27 04/20/20 24 04/21/2024 SPECI MEN STATU S REPOR T specimen status report COMMEN T Test not perfo rmed. No speci men recei elvia. TEST: [id number] GI Profi le, [place] , [place] [id number] 5 Calpr otect in, Fecal Not Available [facility] ([facility]) [address] [facility], [place], [address], 05/01/2024 07:13:28 Result Notes None recorded. Problems Name Problem SNOMED Code Status Onset Date Resolution Date Notes Provider Name and Address Organization Details Recorded Time Crohn's disease 01516946 Active 2021 Claudine Mera [facility], [place] - [facility] & [place] 3 08:55:28 Gastroesophag eal reflux disease without esophagitis 430686476 Active 2022 Compa Yuan PA-C [address] , [place], [address] , [place] - [facility] - [place] & [place] 3 19:43:00 Chronic idiopathic constipation 89228653 Active 2023 Compa Yuan PA-C [address] , [place], [address] , [place] - [facility] & [place] 4 16:16:42 Diarrhea 55311694 Active 2023 Compa Yuan PA-C [address] , [place], [address] , [place] - [facility] & [place] 4 13:46:59 Abdominal pain 51642993 Active 2023 Compa Yuan PA-C [address] [facility], [place], [address] , [place]ER [facility] & [place] 4 13:47:05 Problem Notes None recorded. Procedures Surgical History Date Name Laterality Status Provider Name and Address Organization Details Recorded Time 2 Colonoscopy completed Claudine RODRIGUEZ [facility] & [place] 08/26/2022 09:02:54 9 Appendectomy completed Claudine RODRIGUEZ [facility] & [place] 08/26/2022 09:02:54 5 ENT Surgery completed Claudine RODRIGUEZ [facility] & [place] 08/26/2022 09:02:54 Imaging Results None recorded. Procedure Notes None recorded. Medical Equipment None Reported. Allergies Allergen ID Allergen Name Allergen Category Reaction Reaction Severity Criticality Documentation Date Start Date Code Code System Note Provider Name and Address Organization Details Recorded Time 599334 penicilli n G Not available anaphylax is moderate Not available 04/20/2024 7980 Rx[facility] [place] 4 15:50:05 67366 tetracycl ine medicatio n anaphylax is wheezing mild mild Not available 08/26/2022 50036 RxNorm [facility] [place] 3 09:02:22 Medications Name Sig Start Date [...] Updated DateTime 08/26/2022 162.56 cm 34.7 kg/m2 70433.66 g 67 /min 137/99 mm[Hg] Claudine Mera [facility] & [place] 08/26/2022 09:09:42 Date Recorded Body weight Body mass index (BMI) Body height Body temperature Oxygen saturation Oxygen saturation in Arterial blood by Pulse oximetry Heart rate Heart rate Systolic And Diastolic Provider Name and Address Organization Details Last Updated DateTime 4 16551.4 8 g 36.1 kg/m2 162.56 cm 97.9 [degF] 97 % 97 % 81 /min 73 /min 142/92 mm[Hg] Katia Washington [facility] & [place] 4 10:05:46 Date Recorded Body height Body mass index (BMI) Body weight Body temperature Oxygen saturation Oxygen saturation in Arterial blood by Pulse oximetry Heart rate Systolic And Diastolic Provider Name and Address Organization Details Last Updated DateTime 4 162.56 cm 34.8 kg/m2 54726.2 5 g 97.3 [degF] 97 % 97 % 89 /min 130/82 mm[Hg] Eusebio Aj [facility] & [place] 4 15:54:29 Social History Question Answer Notes LastModified by Organizat ion Details LastModified Time Tobacco Smoking Status Former Smoker Claudine Mera [facility] & [place] 08/26/2022 09:02:54 Do You Have An Advance [...] or have you ever used smokeless tobacco? [id number] Information not available 08/26/2022 Mental Status Question Answer Note LastModified by Organizat ion Details LastModified Time Do you feel stressed (tense, restless, nervous, or anxious, or unable to sleep at night)? [id number] Information not available 08/26/2022 Family History Relationship [...] completed Claudine Mera null, [place] - [facility] & [place] 08/26/2022 09:10:00 COVID-19, mRNA, LNP-S, PF, 100 mcg/0.5mL dose or 50 mcg/0.25mL dose 08/30/2020 completed Claudine Mera null, [place] [facility] & [place] 08/26/2022 09:10:01 Influenza, recombinant, quadrivalent, PF 02/17/2024 completed Eusebio Aj [facility], [place] - [facility] & [place] 04/20/2024 15:50:29 Past Encounters Encounter ID Performer Location Encounter Start Date Encounter Closed Date Diagnosis/Indication Diagnosis SNOMED-CT Code Diagnosis ICD10 Code Diagnosis IMO Codes Diagnosis Note [id number] Compa Yuan PA-C [facility] [address] [address] 08/26/2022 08:58:03 08/26/2022 09:41:56 Crohn's disease 51729114 K50.90 Gastroesop hageal reflux disease without esophagitis 891602912 K21.9 [id number] Compa Yuan PA-C [facility] [address] [address] 02/25/2023 08:58:27 02/25/2023 09:44:09 Crohn's disease 59072035 K50.90 Gastroesop hageal reflux disease without esophagitis 538467539 K21.9 [id number] ALICJA DAMIAN NP [facility] [address] [address] 12/15/2023 09:54:55 12/15/2023 10:41:54 Crohn's disease 65154540 K50.90 Gastroesop hageal reflux disease without esophagitis 132172471 K21.9 Chronic id iopathic constipation 29193088 K59.04 [id number] Compa Yuan PA-C [facility] [address] [address] 04/20/2024 15:44:33 04/20/2024 16:43:24 Crohn's disease 81442281 K50.90 Gastroesop hageal reflux disease without esophagitis 459004793 K21.9 Chronic id iopathic constipation 14826470 K59.04 [id number] Compa Yuan PA-C [facility] [address] [address] 05/17/2024 08:46:52 05/17/2024 09:17:05 Crohn's disease 98212174 K50.90 Gastroesop hageal reflux disease without esophagitis 799957420 K21.9 Chronic id iopathic constipation 40203396 K59.04 Diarrhea 86896841 R19.7 Abdominal pain 72321936 R10.9 Health Concerns Section Related Observation LastModified by Organization Detai ls LastModified Time None Recorded Concern Status LastModified by Organization Details LastModified Time None Recorded Advance Directives Directive Y: Payers Insurance Date Sequence Insurance Name Policy Number Policy Mitchell Covered Member ID Mitchell Member ID Guarantor Name 12/15/2023 1 [employer] (MEDICAID [facility] - HMO) [id number] Napoleon Zhao [id number] Napoleon Guo 06/21/2024 1 [facility] (MEDICAID HMO) Napoleon Zhao [id number] Napoleon Guo Notes Date Note Type Note [...] refills. Compa Yuan PA-C [address], [place], [address], [facility] & [place] 08/26/2022 19:45:04 02/25/2023 text/html Ms. Zhao is [...] care. Compa Yuan PA-C [address], [place], [address], [facility] - [place] [facility] & [place] 02/25/2023 21:22:42 12/15/2023 text/html Previous (08-26-2022 Thania [...] year ALICJA DAMIAN, JENN [address], [place], [address], [facility] - [place] - [place] & [place] 12/15/2023 10:46:55 04/20/2024 text/html PREVIOUS (02/26/24): Ms. [...] denies bloody stools. Compa Yuan PA-C [address] [facility], [place], [address], [facility] - [facility] - [place] & [place] 04/20/2024 16:32:10 05/17/2024 text/html PREVIOUS (04/20/24): Ms. [...] patient reports being physically located in the [facility] at the time of the encounter. The provider performing the visit was also physically located in the [facility] during the encounter Compa Yuan PA-C [address] , [place], [address], [facility] - [facility] - [place] & [place] 05/17/2024 14:26:57 OBGyn Episode No OBEpisode recorded.
== END 2025-03-25 23:59 | disposition home or self-care (01) ==
LOC: RT 13:30
PROVIDERS: PCP Internal Medicine Adolescent Medicine; Visit Provider Internal Medicine Adolescent Medicine
DX: I51.7 Cardiomegaly (principal); R00.0 Tachycardia, unspecified
CPT/HCPCS: 93306

== ENCOUNTER 2025-04-04 14:47 | Outpatient (CLI) | payer OTHER, SELFPAY ==
[2025-04-04 15:55] VITALS: PULSE 73; PULSE 80
[2025-04-04] MEDS: ALBUTEROL 0.083% 2.5 MG/3 ML NEB IH (15:55)
== END 2025-04-04 23:59 | disposition home or self-care (01) ==
LOC: RT 14:48
PROVIDERS: PCP Internal Medicine Adolescent Medicine; Visit Provider Internal Medicine Adolescent Medicine
DX: R94.2 Abnormal results of pulmonary function studies (principal); R06.00 Dyspnea, unspecified
CPT/HCPCS: 94010; 94640; 94727; 94729